=== PATIENT | male | born 1950 | race Caucasian/White ===

== ENCOUNTER 2017-05-10 11:32 | Inpatient (IN) | payer MEDICARE ==
[2017-05-10] VITALS (10 sets, daily range): BP systolic 111–134; BP diastolic 59–93; PULSE 74–107; RESP 13–24; TEMP 96.8–100; O2SAT 96–100
[~2017-05-10] VITALS: Ht 180.3 cm; Wt 106.1 kg
[~2017-05-10 11:32] MED LIST: AMLO5TAB22 PO; ASPI325T PO; ATOR20TA42 PO; LISI-363 PO; LORTA5 PO; METHO500 PO; METO100T PO; PRED20 PO
[2017-05-10] MEDS ORDERED: AMLO5TAB2 PO (12:19)
[2017-05-10] MEDS ORDERED: LISI-515 PO (12:19)
[2017-05-10] MEDS ORDERED: ATOR20TA15 PO (12:19)
[2017-05-10] MEDS ORDERED: APIX5TAB PO (12:19)
[2017-05-10] MEDS ORDERED: METO50TA PO (12:19)
[2017-05-10] MEDS ORDERED: SODIUM CHLOR 0.9% 1000 ML INJ 1,000 ML IV SCH (12:26)
[2017-05-10] MEDS ORDERED: PANTOPRAZOLE SODIUM 40 MG VIAL IVP ONE (12:30)
[2017-05-10] MEDS ORDERED: SODIUM CHLORIDE 0.9% FLUSH 10 ML FLUSH IVF PRN (12:30)
[2017-05-10 12:53] LABS: HEMATOCRIT 23.1 % (39.0-51.0); MEAN CELL VOLUME 105.7 FL (80.0-100.0); MEAN CORPUSCULAR HEMOGLOBIN 36.8 PG (27.0-34.0); MEAN CORPUSCULAR HGB CONC 34.8 % (32.0-36.0); PLATELET COUNT 113 TH/MM3 (150-450); RED BLOOD COUNT 2.19 MIL/MM3 (4.50-5.90); RED CELL DISTRIBUTION WIDTH 15.8 % (11.6-17.2); WHITE BLOOD COUNT 3.9 TH/MM3 (4.0-11.0)
[2017-05-10 12:55] LABS: HEMO FLAGS AUTO DIFF
[2017-05-10 12:59] LABS: APTT (PATIENT) 31.3 SEC (24.3-30.1); INTERNATIONAL NORMALIZED RATIO 1.2 RATIO; PROTHROMBIN TIME - PATIENT 13.1 SEC (9.8-11.6)
[2017-05-10 13:23] LABS: ALT (GPT) 11 U/L (12-78); ANION GAP 9 MEQ/L (5-15); AST (GOT) 10 U/L (15-37); BLOOD UREA NITROGEN 28 MG/DL (7-18); CHLORIDE 105 MEQ/L (98-107); GLOMERULAR FILTRATION RATE 61 ML/MIN (>89); POTASSIUM 4.4 MEQ/L (3.5-5.1); SODIUM (NA) 140 MEQ/L (136-145)
[2017-05-10 13:25] LABS: ALKALINE PHOSPHATASE 66 U/L (45-117); TOTAL BILIRUBIN ADULT 0.7 MG/DL (0.2-1.0)
[2017-05-10 13:52] LABS: BANDS 1 % (0-6); POLYS (SEG NEUTROPHILS) 4 % (16-70); WBC DIFF SAMPLE 100
[2017-05-10 13:56] LABS: NEUTROPHIL # MANUAL DIFF 0.2 TH/MM3 (1.8-7.7); PLATELET ESTIMATE SMEAR LOW (NORMAL); PLATELET MORPHOLOGY NORMAL (NORMAL); SCAN/DIFF FINAL DIFF MANUAL
--- NOTE | 2017-05-10 14:06 | PD ---
HPI Chief Complaint: Bleeding Time Seen by Provider: 12:26 Travel History International Travel<30 days: No Contact w/Intl Traveler<30days: No Traveled to known affect area: No History of Present Illness HPI This is a 66-year-old gentleman who was sent by his primary care doctor for dizziness and weakness and a hemoglobin was 7.6. The patient has no past medical history of anemia. He does have a recent right ear infection and had a tube placed by an ENT physician yesterday. They report that they have not filled the antibiotic as of yet. The patient reports dizziness and weakness with worse on exertion. He does have a history of daily drinking. The patient denies any chest pain, chest pressure. There is no reported hematemesis or hematochezia. The patient does have a history of atrial fibrillation and is on eliquis daily. PFSH Past Medical History Hx Anticoagulant Therapy: No Atrial Fibrillation: Yes Cancer: No Cardiovascular Problems: Yes (AFIB) High Cholesterol: Yes Chemotherapy: No Cerebrovascular Accident: No Diabetes: No Diminished Hearing: No Endocrine: No Gastrointestinal Disorders: Yes (HERNIA REPAIR) Genitourinary: No Hepatitis: No Hiatal Hernia: No Hypertension: Yes Immune Disorder: No Medical other: Yes (HIGH CHOLESTEROL) Musculoskeletal: Yes (LT KNEE ARTHRITIS, LOWER BACK) Neurologic: Yes Psychiatric: No Reproductive: No Respiratory: No Thyroid Disease: No Past Surgical History Abdominal Surgery: Yes (HERNIA, APPY) AICD: No Appendectomy: Yes Body Medical Devices: NONE Ear Surgery: No Endocrine Surgery: No Eye Surgery: No Genitourinary Surgery: No Gynecologic Surgery: No Joint Replacement: Yes (LEFT KNEE) Oral Surgery: Yes (TONSILLECTOMY) Pacemaker: No Tonsillectomy: Yes Other Surgery: Yes Social History Alcohol Use: Yes (BEER DAILY) Tobacco Use: No Substance Use: No Allergies-Medications (Allergen,Severity, Reaction): Coded Allergies: No Known Allergies (Unverified , 05/10/17) Reported Meds & Prescriptions Reported Meds & Active Scripts Active Reported Lisinopril 20 Mg Tab 20 Mg PO DAILY Atorvastatin (Atorvastatin Calcium) 20 Mg Tab 20 Mg PO DAILY Metoprolol Tartrate 50 Mg Tab 50 Mg PO DAILY Amlodipine (Amlodipine Besylate) 5 Mg Tab 5 Mg PO DAILY Eliquis (Apixaban) 5 Mg Tab 5 Mg PO DAILY Review of Systems Except as stated in HPI: all other systems reviewed are Neg General / Constitutional: No: Fever, Chills Eyes: No: Blurred Vision, Photophobia HENT: Positive: Lightheadedness, Ear Discharge (had a tube placed in his right tympanic membrane yesterday.), Earache, No: Headaches, Neck Pain Cardiovascular: No: Chest Pain or Discomfort, Palpitations, Irregular Rhythm Respiratory: Positive: Shortness of Breath, No: Cough Gastrointestinal: No: Nausea, Vomiting, Diarrhea, Abdominal Pain, Hematemesis, Hematochezia Genitourinary: No: Dysuria, Hematuria Musculoskeletal: Positive: Weakness (generalized), No: Pain Neurologic: Positive: Weakness, Dizziness (generalized mild), No: Headache, Change in Mentation Physical Exam Narrative GENERAL: Well-developed well-nourished gentleman in no acute respiratory distress. SKIN: Focused skin assessment warm/dry. HEAD: Atraumatic. Normocephalic. EYES: No scleral icterus. No injection or drainage. ENT: No nasal bleeding or discharge. Mucous membranes pale and moist. NECK: Trachea midline. Supple. CARDIOVASCULAR: Irregularly irregular with a rate in the 80s and 90s. No murmur appreciated. RESPIRATORY: No accessory muscle use. Clear to auscultation. Breath sounds equal bilaterally. GASTROINTESTINAL: Abdomen soft, non-tender, nondistended. RECTAL EXAM: No masses or tenderness, no stool but mucus. Heme-negative MUSCULOSKELETAL: No obvious deformities. No clubbing. No cyanosis. No edema. NEUROLOGICAL: Awake and alert. No obvious cranial nerve deficits. Motor grossly within normal limits. Normal speech. Data Data Last Documented VS Vital Signs Date Time Temp Pulse Resp B/P Pulse Ox O2 Delivery O2 Flow Rate FiO2 05/10/17 13:52 81 18 133/63 99 Room Air 05/10/17 11:34 98.3 Orders Complete Blood Count With Diff (05/10/17 12:26) Comprehensive Metabolic Panel (05/10/17 12:26) Prothrombin Time / Inr (Pt) (05/10/17 12:26) Act Partial Throm Time (Ptt) (05/10/17 12:26) Urinalysis - C+S If Indicated (05/10/17 12:26) Type And Screen (05/10/17 12:26) Red Blood Cells (Rbc) (05/10/17 12:26) Ecg Monitoring (05/10/17 12:26) Iv Access Insert/Monitor (05/10/17 12:26) Oximetry (05/10/17 12:26) Pantoprazole Inj (Protonix Inj) (05/10/17 12:30) Sodium Chlor 0.9% 1000 Ml Inj (Ns 1000 M (05/10/17 12:26) Sodium Chloride 0.9% Flush (Ns Flush) (05/10/17 12:30) Place In Observation (05/10/17 ) Vital Signs (Adult) Q4H (05/10/17 14:56) Activity Oob With Assistance (05/10/17 14:56) Diet Regular Basic (05/10/17 Dinner) Sodium Chlor 0.9% 1000 Ml Inj (Ns 1000 M (05/10/17 15:00) Sodium Chloride 0.9% Flush (Ns Flush) (05/10/17 15:00) Sodium Chloride 0.9% Flush (Ns Flush) (05/10/17 21:00) Acetaminophen (Tylenol) (05/10/17 15:00) Ondansetron Inj (Zofran Inj) (05/10/17 15:00) Comprehensive Metabolic Panel (05/11/17 06:00) Complete Blood Count With Diff (05/11/17 06:00) Resp Oxygen Davin C Titrat 1-4 L (05/10/17 ) Case Management Consult (05/10/17 14:56) Scd Bilateral/Knee High CARLOS A.BID (05/10/17 14:56) Prashant Bilateral/Knee High CARLOS A.QSHIFT (05/10/17 14:56) Docusate Sodium-Senna (Cinthia-Colace) (05/10/17 21:00) Magnesium Hydroxide Liq (Milk Of Magnesi (05/10/17 15:00) Sennosides (Senokot) (05/10/17 15:00) Bisacodyl Supp (Dulcolax Supp) (05/10/17 15:00) Lactulose Liq (Lactulose Liq) (05/10/17 15:00) Consult Medical Oncology (05/10/17 ) Amoxicil-Clavulanate (Augmentin) (05/10/17 15:00) Labs Laboratory Tests Test 05/10/17 05/10/17 12:20 13:58 White Blood Count 3.9 TH/MM3 Red Blood Count 2.19 MIL/MM3 Hemoglobin 8.1 GM/DL Hematocrit 23.1 % Mean Corpuscular Volume 105.7 FL Mean Corpuscular Hemoglobin 36.8 PG Mean Corpuscular Hemoglobin 34.8 % Concent Red Cell Distribution Width 15.8 % Platelet Count 113 TH/MM3 Mean Platelet Volume 7.6 FL Neutrophils (%) (Auto) % Lymphocytes (%) (Auto) % Monocytes (%) (Auto) % Eosinophils (%) (Auto) % Basophils (%) (Auto) % Neutrophils # (Auto) TH/MM3 Lymphocytes # (Auto) TH/MM3 Monocytes # (Auto) TH/MM3 Eosinophils # (Auto) TH/MM3 Basophils # (Auto) TH/MM3 CBC Comment AUTO DIFF Differential Total Cells 100 Counted Neutrophils % (Manual) 4 % Band Neutrophils % 1 % Lymphocytes % 55 % Monocytes % 40 % Neutrophils # (Manual) 0.2 TH/MM3 Differential Comment FINAL DIFF MANUAL Platelet Estimate LOW Platelet Morphology Comment NORMAL Prothrombin Time 13.1 SEC Prothromb Time International 1.2 RATIO Ratio Activated Partial 31.3 SEC Thromboplast Time Sodium Level 140 MEQ/L Potassium Level 4.4 MEQ/L Chloride Level 105 MEQ/L Carbon Dioxide Level 26.0 MEQ/L Anion Gap 9 MEQ/L Blood Urea Nitrogen 28 MG/DL Creatinine 1.19 MG/DL Estimat Glomerular Filtration 61 ML/MIN Rate Random Glucose 145 MG/DL Calcium Level 9.3 MG/DL Total Bilirubin 0.7 MG/DL Aspartate Amino Transf 10 U/L (AST/SGOT) Alanine Aminotransferase 11 U/L (ALT/SGPT) Alkaline Phosphatase 66 U/L Total Protein 7.9 GM/DL Albumin 3.9 GM/DL Blood Type A POSITIVE A POSITIVE Antibody Screen NEGATIVE Crossmatch Leukocyte-Reduced Red Blood Cells Blood Bank Comment MDM Medical Decision Making Medical Screen Exam Complete: Yes Emergency Medical Condition: Yes Differential Diagnosis Anemia of chronic inflammation versus GI bleed versus pancytopenia Narrative Course This is a 66-year-old male who presents here with weakness and dizziness. Patient also has mild shortness of breath. The patient's hemoglobin is 8.0. The absolute neutrophil count is 0.2. The patient has no history of immunocompromise state that they're aware of. He has never been HIV tested. He does have an ear infection that he is being treated for however did not fill the antibiotics. Given his absolute neutrophil count of 0.2, he'll be admitted. He will need to have infection precautions. A mask was placed on the patient when we received the neutrophil count. The case was discussed with Dr. Garcia, who will admit the patient to her service. Diagnosis Primary Impression: Pancytopenia Additional Impressions: neutropenia with ANC of 0.2 Weakness Dizziness Valdemar Maher MD May 10, 2017 14:06
[2017-05-10] MEDS ORDERED: MAGNESIUM HYDROXIDE SUSP 30 ML CUP PO PRN (15:00)
[2017-05-10] MEDS ORDERED: LACTULOSE SYRUP 20 GM/30 ML CUP PO PRN (15:00)
[2017-05-10] MEDS ORDERED: BISACODYL 10 MG SUPP RECTAL PRN (15:00)
[2017-05-10] MEDS ORDERED: SENNOSIDES 8.6 MG TAB PO PRN (15:00)
[2017-05-10] MEDS: SODIUM CHLOR 0.9% 1000 ML INJ 1,000 ML IV SCH (15:19)
[2017-05-10] MEDS: AMOXICILLIN/CLAVULANATE K 875 MG TAB PO SCH ×2 (15:37→21:41)
--- NOTE | 2017-05-10 16:10 | HHI.HP ---
[facility] Cristiane Holguin Admission Diagnosis Pancytopenia, neutropenia, right ear infection Diagnoses: Chief Complaint: weakness and dizziness Travel History International Travel<30 Days: No Contact w/Intl Traveler <30 Da: No Traveled to Known Affected Are: No History of Present Illness Written by Susie Varela, acting as scribe for [Radha] on 05/10/17 at 16: 00. This note was transcribed by scribe Susie PETERSON. I, Dr. Adalgisa Garcia personally performed the history, physical exam, and medical decision making; and confirmed the accuracy of the information in the transcribed note. Authenticated by Dr. Adalgisa Garcia on 05/10/17 at 16:00. 66 y/o male with a history HTN, HLD, AFIB and arthritis presented to the ED with complaints of dizziness and weakness. Yesterday he had a tube placed in his right ear by his ENT Dr, and he completed outpatient blood work. Today he was called by his PCP for a hgb of 7.6. He states he has had dizzy episodes when he stands up, lack of appetite, a 20 pound weight loss over the last 2 months. He is a homosexual male and has never been tested for HIV, he does agree with testing, consents signed. He states he does get short of breath at times. He admits to daily beer drinking, but states his last drink was one week ago. Denies any chest pain, fever or chills. Review of Systems Constitutional: COMPLAINS OF: Fatigue, Weight loss, Dizziness, DENIES: Fever, Chills Respiratory: COMPLAINS OF: Shortness of breath, DENIES: Cough, Sputum production Cardiovascular: DENIES: Chest pain, Lower Extremity Edema Gastrointestinal: DENIES: Nausea, Vomiting Genitourinary: DENIES: Hematuria, Dysuria Musculoskeletal: DENIES: Back pain, Neck pain Integumentary: DENIES: Rash Immunologic/allergic: DENIES: Urticaria Neurologic: DENIES: Headache Past Family Social History Past Medical History AFIB HTN HLD Arthritis Past Surgical History Hernia repair Tonsillectomy Left knee replacement Reported Medications Reported Meds & Active Scripts Active Reported Lisinopril 20 Mg Tab 20 Mg PO DAILY Atorvastatin (Atorvastatin Calcium) 20 Mg Tab 20 Mg PO DAILY Metoprolol Tartrate 50 Mg Tab 50 Mg PO DAILY Amlodipine (Amlodipine Besylate) 5 Mg Tab 5 Mg PO DAILY Eliquis (Apixaban) 5 Mg Tab 5 Mg PO DAILY Allergies: Coded Allergies: No Known Allergies (Unverified , 05/10/17) Active Ordered Medications Current Medications Medications (Trade) Dose Ordered Sig/Maritza Route Start Time Stop Time Status Last Admin (NS 1000 ml Inj) 1,000 ml @ 100 mls/hr Q10H IV 05/10/17 15:00 05/10/17 15:19 (NS Flush) 2 ml UNSCH PRN IV FLUSH 05/10/17 15:00 (NS Flush) 2 ml BID IV FLUSH 05/10/17 21:00 (Tylenol) 650 mg Q4H PRN PO 05/10/17 15:00 (Zofran Inj) 4 mg Q6H PRN IVP 05/10/17 15:00 (Cinthia-Colace) 1 tab BID PO 05/10/17 21:00 (Milk Of Magnesia Liq) 30 ml Q12H PRN PO 05/10/17 15:00 (Senokot) 17.2 mg Q12H PRN PO 05/10/17 15:00 (Dulcolax Supp) 10 mg DAILY PRN RECTAL 05/10/17 15:00 (Lactulose Liq) 30 ml DAILY PRN PO 05/10/17 15:00 (Augmentin) 875 mg Q12HR PO 05/10/17 15:00 05/10/17 15:37 Family History Dad: CVA Social History Tobacco use: Denies Alcohol use: 5-7 Beers Daily Illicit drug use: Denies Physical Exam Vital Signs Vital Signs Date Time Temp Pulse Resp B/P Pulse Ox O2 Delivery O2 Flow Rate FiO2 05/10/17 15:42 77 20 111/74 99 Room Air 05/10/17 13:52 81 18 133/63 99 Room Air 05/10/17 13:38 99 Room Air 05/10/17 12:08 88 24 121/59 100 Room Air 05/10/17 11:34 98.3 83 18 131/80 98 Room Air Physical Exam GENERAL: This is a well-nourished, well-developed patient, in no apparent distress. SKIN: No rashes, ecchymoses or lesions. Cool and dry. HEAD: Atraumatic. Normocephalic. No temporal or scalp tenderness. EYES: Pupils equal round and reactive. Extraocular motions intact. No scleral icterus. No injection or drainage. ENT: Nose without bleeding, purulent drainage or septal hematoma. Throat without erythema, tonsillar hypertrophy or exudate. Uvula midline. Airway patent. NECK: Trachea midline. No JVD or lymphadenopathy. Supple, nontender, no meningeal signs. CARDIOVASCULAR: Regular rate and rhythm without murmurs, gallops, or rubs. RESPIRATORY: Clear to auscultation. Breath sounds equal bilaterally. No wheezes , rales, or rhonchi. GASTROINTESTINAL: Abdomen soft, non-tender, nondistended. No hepato-splenomegaly , or palpable masses. No guarding. MUSCULOSKELETAL: Extremities without clubbing, cyanosis, or edema. No joint tenderness, effusion, or edema noted. No calf tenderness. Negative Homans sign bilaterally. NEUROLOGICAL: Awake and alert. Cranial nerves II through XII intact. Motor and sensory grossly within normal limits. Five out of 5 muscle strength in all muscle groups. Normal speech. Laboratory Laboratory Tests Test 05/10/17 05/10/17 12:20 13:58 White Blood Count 3.9 Red Blood Count 2.19 Hemoglobin 8.1 Hematocrit 23.1 Mean Corpuscular Volume 105.7 Mean Corpuscular Hemoglobin 36.8 Mean Corpuscular Hemoglobin 34.8 Concent Red Cell Distribution Width 15.8 Platelet Count 113 Mean Platelet Volume 7.6 Neutrophils (%) (Auto) Lymphocytes (%) (Auto) Monocytes (%) (Auto) Eosinophils (%) (Auto) Basophils (%) (Auto) Neutrophils # (Auto) Lymphocytes # (Auto) Monocytes # (Auto) Eosinophils # (Auto) Basophils # (Auto) CBC Comment AUTO DIFF Differential Total Cells 100 Counted Neutrophils % (Manual) 4 Band Neutrophils % 1 Lymphocytes % 55 Monocytes % 40 Neutrophils # (Manual) 0.2 Differential Comment FINAL DIFF MANUAL Platelet Estimate LOW Platelet Morphology Comment NORMAL Prothrombin Time 13.1 Prothromb Time International 1.2 Ratio Activated Partial 31.3 Thromboplast Time Sodium Level 140 Potassium Level 4.4 Chloride Level 105 Carbon Dioxide Level 26.0 Anion Gap 9 Blood Urea Nitrogen 28 Creatinine 1.19 Estimat Glomerular Filtration 61 Rate Random Glucose 145 Calcium Level 9.3 Total Bilirubin 0.7 Aspartate Amino Transf 10 (AST/SGOT) Alanine Aminotransferase 11 (ALT/SGPT) Alkaline Phosphatase 66 Total Protein 7.9 Albumin 3.9 Blood Type A POSITIVE A POSITIVE Antibody Screen NEGATIVE Crossmatch Leukocyte-Reduced Red Blood Cells Blood Bank Comment Result Diagram: 05/10/17 1220 05/10/17 1220 Assessment and Plan Problem List: (1) Pancytopenia ICD Code: D61.818 Status: Acute (2) Macrocytic anemia ICD Code: D53.9 Status: Acute (3) Alcohol abuse ICD Code: F10.10 Status: Acute (4) S/P tympanic tube insertion ICD Code: Z96.22 Status: Acute Assessment and Plan 66 y/o homosexual male with a history of HTN, HLD, AFIB and arthritis presented to the ED with complaints of dizziness and weakness. Yesterday he had a tube placed in his right ear by his ENT Dr, and he completed outpatient blood work. Today he was called by his PCP for a hgb of 7.6. He states he has had dizzy episodes when he stands up, lack of appetite, a 20 pound weight loss over the last 2 months. Pancytopenia, hgb 8.9, wbc 3.9, neutrophils .2, platelets 103 -Consult Medical oncology for recommendations -CBC in am -HIV screen ordered Macrocytic anemia suspect Vit B12 or thiamine deficiency -Labs Vit B12, and Thiamine ordered -Will transfuse if needed HTN, chronic, currently stable -Reorder home medications lisinopril, amlodipine -Monitor vitals Afib, chronic -Reorder home medications metoprolol -Monitor tele -Hold Eliquis for now due to pancytopenia S/P tympanic tube placement, tube was placed yesterday by ENT for chronic ear infection -Augmentin 875mg PO BID -Monitor for fevers Alcohol abuse, chronic -Withdrawal precautions -Encouraged to quit -Will order CIWA protocol if needed DVT prophylaxis: SCDs Discussed Condition With Patient, RN and Family at bedside Susie Varela May 10, 2017 16:10 Adalgisa Garcia MD May 10, 2017 16:26
--- NOTE | 2017-05-10 19:48 | MB ---
cc: DON JOHNS MD DATE OF CONSULTATION: 05/10/2017 REASON FOR CONSULTATION: Patient with pancytopenia associated with a macrocytic anemia. Hematology asked to see the patient for further workup and evaluation. CHIEF COMPLAINT: 1. The patient reports a 25 pound unintended weight loss for the past two months. 2. Increasing difficulty breathing with minimal exertion. 3. Dizziness when standing and walking. HISTORY OF PRESENT ILLNESS: Mr. Gutiérrez is a very pleasant 66-year-old man who is originally from [facility] [place] [facility]. He worked most of his life for the [place] [employer]. He is single. He has no children of his own. He lives at home with his male roommates. The patient reports being in his usual fair state of health up until about two months ago, the patient began to notice increasing fatigue and breathlessness with exertion and dizziness when standing. He explains the dizziness typically would be present initially when he stood and walked but would resolve after he walked a few paces. He has also noted an unintended weight loss which mainly is due to loss of appetite; over the past 2 months his weight has dropped from 285 pounds down to 260 pounds without putting in much effort. The patient reported the symptoms to his PCP who recommended blood work. Blood work was done yesterday and the patient received a phone call from his PCP instructing him to go to the emergency department for evaluation of a rapid decline in his hemoglobin and hematocrit. Mr. Gutiérrez denies noting any overt bleeding, he specifically denies hematochezia or melena. The patient is on anticoagulation with Eliquis 5 mg twice daily, the indication for which is atrial fibrillation. PAST MEDICAL HISTORY: 1. Hypertension. 2. Atrial fibrillation. 3. Valvular heart disease. PAST SURGICAL HISTORY: 1. Hernia repair. 2. Knee surgery. 3. Cholecystectomy. FAMILY HISTORY: Father of strokes, mother at a young age in a house fire. SOCIAL HISTORY: Patient is single, he lives at home with his male roommates, he is originally from [facility] [place]. He used to drink four to five beers daily but now only drinks on weekends. ALLERGIES: NO KNOWN DRUG ALLERGIES. CURRENT INPATIENT MEDICATIONS: 1. Normal saline 100 cc/hour. 2. Amlodipine 5 milligrams p.o. daily. 3. Augmentin 875 milligrams p.o. twice a day. 4. Atorvastatin 20 milligrams p.o. daily. 5. Colace / senna one tablet p.o. twice a day. 6. Lactulose 30 mL p.o. daily. 7. Lisinopril 20 milligrams daily. 8. Metoprolol 50 milligrams p.o. daily. 9. Zofran 4 milligrams IV q. 6 hours. 10. Pantoprazole 40 milligrams IV daily. REVIEW OF SYSTEMS: A thirteen point review of systems was obtained and the following are the pertinent positives: CONSTITUTIONAL: Weight loss, fatigue, weakness, decreased appetite. HEAD, EYES, EARS, NOSE, THROAT: Reports headache along the right side of his head, he reports earache and a severe ear infection. He also reports soreness in the throat. RESPIRATORY: Difficulty breathing with exertion, denies cough or hemoptysis. denies pleuritic chest pain. CARDIOVASCULAR: Denies angina-like chest pain, PND, orthopnea, but does report dizziness and reports palpitations. GASTROINTESTINAL: Denies nausea, vomiting, diarrhea hematochezia, melena. He interestingly reports noting foul-smelling dark liquid coming out of his belly button about two months ago but this resolved spontaneously. GENITOURINARY: No complaints. HUMAN CAPITAL ANALYST: No focal sensory or motor deficits. He does have difficulty hearing, which is chronic. MUSCULOSKELETAL: He denies any musculoskeletal aches and pains. PHYSICAL EXAMINATION: VITAL SIGNS: Temperature 96.8 degrees Fahrenheit, heart rate 74 beats per minute, respiratory rate 16, oxygen saturation 98% on room air. GENERAL PHYSICAL APPEARANCE: Mr. Gutiérrez is a middle-aged / elderly male, he is lying in bed, he is heavyset, appears to be in no acute distress and has a pleasant disposition. HEAD, EYES, EARS, NOSE, THROAT: Head is atraumatic and normocephalic. Conjunctivae are pale. The sclerae are anicteric. Extraocular muscles intact. Pupils equal, round and reactive to light and accommodation. ORAL EXAM: No pharyngeal erythema. NECK EXAM: No palpable cervical or supraclavicular lymphadenopathy. RESPIRATORY EXAM: Good air movement bilaterally. No added breath sounds. CARDIOVASCULAR EXAM: Regular rate and rhythm. S1, S2. No obvious murmurs, rubs or gallops. ABDOMINAL EXAM: Protuberant belly, soft, no palpable organ enlargement, specifically hepatosplenomegaly. LOWER EXTREMITIES: No pretibial edema or calf tenderness. HUMAN CAPITAL ANALYST: No focal sensory or motor deficits. LABORATORY FINDINGS: Blood work dated 05/10/2017: WBC count 3.9, hemoglobin 0.1 gm/dl, hematocrit 23%, MCV 105.7, platelet count 113,000, absolute neutrophil count is 0.2, monocyte percent is 40%, lymphocyte percent is 55%. Chemistries: Sodium 140, potassium 4.4, chloride 105, bicarbonate 26, BUN 28, creatinine 1.2, EGFR 61, random glucose 145, total bilirubin 0.7, AST 10, ALT 11, alkaline phosphatase 66, albumin 3.2. Coags: PT 13.1, INR 1.2, PTT 31.3. Review of peripheral smear: Red blood cell lineage: Decreased red blood cell counts, normocytic and essentially normochromic. No fragmentation noted. WBCs: An extensive number of monocytes / immature monocytes were noted. Very few neutrophils are identified, lymphocytes appear to be mature and perhaps increased in number as well. Platelets decreased mildly. ASSESSMENT: Mr. Gutiérrez is a 66-year-old man who comes in to the hospital upon the recommendation of his PCP for further workup and evaluation of rapid onset anemia. Subjectively the patient had been reporting increasing fatigue, breathlessness with exertion and unintended weight loss over the past several weeks. His hemoglobin at presentation was noted to be 8.1 gm/dl associated with leukopenia and thrombocytopenia as well. Interestingly he has a high percentage of monocytes in the peripheral circulation and this was verified on peripheral smear review by myself. The concern is for a primary bone marrow disorder such as a myeloproliferative neoplasm versus chronic myelomonocytic leukemia (CMML). RECOMMENDATIONS: 1. Pancytopenia associated with a significant monocytosis, peripheral smear has numerous immature and dysplastic appearing monocytes in circulation. I will request a formal peripheral smear review by our pathologist and will also request bone marrow biopsy with flow cytometry of the bone marrow as well as a reflex testing with cytogenetics/FISH as deemed necessary by pathology to establish a diagnosis.. 2. Obtain LDH, uric acid levels as well as folic acid levels. 3. The hematology service will follow along with you. 4. Serum iron studies will be ordered as well, and stool for occult blood testing to rule out possible GI losses with resultant anemia. MD GEORGI Shin /6:30 PM /7:33 PM MTDCristiane
[2017-05-10 19:58] LABS: BLOOD, URINE NEG (NEG); COMMENT (UR) CULT NOT INDICATED; CULTURE IF INDICATED CULT NOT INDICATED; GLUCOSE,URINE NEG (NEG); KETONE, URINE NEG (NEG); MUCUS URINE FEW /lpf (OCC); NITRITE,URINE NEG (NEG); URINE COLOR YELLOW (YELLW/STRAW)
[2017-05-10] MEDS: SODIUM CHLORIDE 0.9% FLUSH 10 ML FLUSH IV FLUSH SCH (21:00)
[2017-05-10] MEDS: DOCUSATE SODIUM 50 MG/SENNA 8.6 MG TAB PO SCH (21:41)
[2017-05-10] MEDS ORDERED: IBUPROFEN 400 MG TAB PO ONE (22:00)
[2017-05-11] VITALS (12 sets, daily range): BP systolic 103–132; BP diastolic 62–74; PULSE 77–111; RESP 16–22; TEMP 96.9–100.4; O2SAT 93–96
[2017-05-11] MEDS: SODIUM CHLOR 0.9% 1000 ML INJ 1,000 ML IV SCH (04:06)
[2017-05-11 07:05] LABS: MEAN CELL VOLUME 105.7 FL (80.0-100.0); MEAN CORPUSCULAR HEMOGLOBIN 37.4 PG (27.0-34.0); MEAN CORPUSCULAR HGB CONC 35.4 % (32.0-36.0); PLATELET COUNT 83 TH/MM3 (150-450); RED BLOOD COUNT 1.82 MIL/MM3 (4.50-5.90); RED CELL DISTRIBUTION WIDTH 15.8 % (11.6-17.2); WHITE BLOOD COUNT 3.2 TH/MM3 (4.0-11.0)
[2017-05-11 07:20] LABS: HEMO FLAGS AUTO DIFF
[2017-05-11 07:27] LABS: HEMATOCRIT 19.2 % (39.0-51.0)
[2017-05-11 07:35] LABS: ALKALINE PHOSPHATASE 63 U/L (45-117); ALT (GPT) 12 U/L (12-78); ANION GAP 9 MEQ/L (5-15); AST (GOT) 7 U/L (15-37); BICARBONATE 25.5 MEQ/L (21.0-32.0); BLOOD UREA NITROGEN 20 MG/DL (7-18); CHLORIDE 106 MEQ/L (98-107); FERRITIN 563 NG/ML (26-388); GLOMERULAR FILTRATION RATE 73 ML/MIN (>89); LDH SERUM 260 U/L (87-241); POTASSIUM 4.1 MEQ/L (3.5-5.1); SODIUM (NA) 140 MEQ/L (136-145); TRANSFERRIN IRON PROFILE 201 MG/DL (200-360); URIC ACID 5.3 MG/DL (2.6-7.2)
[2017-05-11] MEDS ORDERED: SODIUM CHLOR 0.9% 250 ML INJ 250 ML IV ONE (07:45)
[2017-05-11] MEDS ORDERED: ACETAMINOPHEN 325 MG TAB PO PRN ×2 (08:00→13:00)
[2017-05-11] MEDS ORDERED: diphenhydrAMINE HCL 25 MG CAP PO PRN ×2 (08:00→13:00)
[2017-05-11] MEDS: CEFEPIME INJ 2,000 MG in SODIUM CHLORIDE 0.9% INJ 100 ML IV SCH ×2 (08:08→19:33)
[2017-05-11] MEDS: METOPROLOL TARTRATE 50 MG TAB PO SCH (08:10)
[2017-05-11] MEDS: SODIUM CHLORIDE 0.9% FLUSH 10 ML FLUSH IV FLUSH SCH ×2 (08:14→21:00)
[2017-05-11 08:45] LABS: BANDS 1 % (0-6); BLASTS 2 % (0-0); EOSINOPHILS 1 % (0-4); NEUTROPHIL # MANUAL DIFF 0.1 TH/MM3 (1.8-7.7); POLYS (SEG NEUTROPHILS) 3 % (16-70); WBC DIFF SAMPLE 100
[2017-05-11 08:48] LABS: PLATELET ESTIMATE SMEAR LOW (NORMAL); PLATELET MORPHOLOGY NORMAL (NORMAL)
--- NOTE | 2017-05-11 08:49 | PD.ONC.PN ---
Subjective Subjective Remarks Patient reports pain and swelling in the left axilla. Continues to have pain in the right ear. Denies fevers or chills. Hemoglobin down to 6.8 g/dL this morning. Objective Data Date Time Temp Pulse Resp B/P Pulse Ox O2 Delivery O2 Flow Rate FiO2 05/11/17 04:00 100.1 106 18 116/74 93 05/11/17 00:00 96.9 77 18 120/64 96 05/10/17 23:07 19 05/10/17 20:00 97.3 79 18 117/72 96 05/10/17 16:33 96.8 74 16 116/68 98 05/10/17 16:00 76 20 125/93 99 Room Air 05/10/17 15:42 77 20 111/74 99 Room Air 05/10/17 14:00 76 13 117/68 98 Room Air 05/10/17 13:52 81 18 133/63 99 Room Air 05/10/17 13:38 99 Room Air 05/10/17 12:08 88 24 121/59 100 Room Air 05/10/17 11:34 98.3 83 18 131/80 98 Room Air Result Diagram: 05/11/17 0550 05/11/17 0550 Laboratory Results Laboratory Tests Test 05/10/17 05/10/17 05/10/17 05/11/17 12:20 13:58 17:00 05:50 White Blood Count 3.9 TH/MM3 3.2 TH/MM3 Red Blood Count 2.19 MIL/MM3 1.82 MIL/MM3 Hemoglobin 8.1 GM/DL 6.8 GM/DL Hematocrit 23.1 % 19.2 % Mean Corpuscular Volume 105.7 FL 105.7 FL Mean Corpuscular Hemoglobin 36.8 PG 37.4 PG Mean Corpuscular Hemoglobin 34.8 % 35.4 % Concent Red Cell Distribution Width 15.8 % 15.8 % Platelet Count 113 TH/MM3 83 TH/MM3 Mean Platelet Volume 7.6 FL 7.6 FL Neutrophils (%) (Auto) % % Lymphocytes (%) (Auto) % % Monocytes (%) (Auto) % % Eosinophils (%) (Auto) % % Basophils (%) (Auto) % % Neutrophils # (Auto) TH/MM3 TH/MM3 Lymphocytes # (Auto) TH/MM3 TH/MM3 Monocytes # (Auto) TH/MM3 TH/MM3 Eosinophils # (Auto) TH/MM3 TH/MM3 Basophils # (Auto) TH/MM3 TH/MM3 CBC Comment AUTO DIFF AUTO DIFF Differential Total Cells 100 Counted Neutrophils % (Manual) 4 % Band Neutrophils % 1 % Lymphocytes % 55 % Monocytes % 40 % Neutrophils # (Manual) 0.2 TH/MM3 Differential Comment FINAL DIFF MANUAL Platelet Estimate LOW Platelet Morphology Comment NORMAL Blood Smear Pathologist Review Prothrombin Time 13.1 SEC Prothromb Time International 1.2 RATIO Ratio Activated Partial 31.3 SEC Thromboplast Time Sodium Level 140 MEQ/L 140 MEQ/L Potassium Level 4.4 MEQ/L 4.1 MEQ/L Chloride Level 105 MEQ/L 106 MEQ/L Carbon Dioxide Level 26.0 MEQ/L 25.5 MEQ/L Anion Gap 9 MEQ/L 9 MEQ/L Blood Urea Nitrogen 28 MG/DL 20 MG/DL Creatinine 1.19 MG/DL 1.02 MG/DL Estimat Glomerular Filtration 61 ML/MIN 73 ML/MIN Rate Random Glucose 145 MG/DL 93 MG/DL Calcium Level 9.3 MG/DL 8.2 MG/DL Total Bilirubin 0.7 MG/DL 1.0 MG/DL Aspartate Amino Transf 10 U/L 7 U/L (AST/SGOT) Alanine Aminotransferase 11 U/L 12 U/L (ALT/SGPT) Alkaline Phosphatase 66 U/L 63 U/L Total Protein 7.9 GM/DL 6.9 GM/DL Albumin 3.9 GM/DL 3.3 GM/DL Vitamin B12 Level 335 PG/ML Blood Type A POSITIVE A POSITIVE Antibody Screen NEGATIVE Crossmatch Leukocyte-Reduced Red Blood Cells Blood Bank Comment Urine Color YELLOW Urine Turbidity CLEAR Urine pH 5.0 Urine Specific Palmer 1.019 Urine Protein NEG mg/dL Urine Glucose (UA) NEG mg/dL Urine Ketones NEG mg/dL Urine Occult Blood NEG Urine Nitrite NEG Urine Bilirubin NEG Urine Urobilinogen LESS THAN 2.0 MG/DL Urine Leukocyte Esterase NEG Urine RBC LESS THAN 1 /hpf Urine WBC LESS THAN 1 /hpf Urine Mucus FEW /lpf Microscopic Urinalysis Comment CULT NOT INDICATED Uric Acid 5.3 MG/DL Iron Level 56 MCG/DL Total Iron Binding Capacity 281 MCG/DL Percent Iron Saturation 19.9 % Ferritin 563 NG/ML Lactate Dehydrogenase 260 U/L Test 05/11/17 07:37 Blood Type A POSITIVE Crossmatch Irradiated/Leukocyte-Reduced RBC Blood Bank Comment Administered Medications Medications (Trade) Dose Ordered Sig/Maritza Route PRN Reason Start Time Stop Time Status Last Admin Dose Admin Sodium Chloride (NS 1000 ml Inj) 1,000 ml @ 100 mls/hr Q10H IV 05/10/17 15:00 05/11/17 04:06 Senna/Docusate Sodium (Cinthia-Colace) 1 tab BID PO 05/10/17 21:00 05/10/17 21:41 Metoprolol Tartrate (Lopressor) 50 mg DAILY PO 05/11/17 09:00 05/11/17 08:10 Acetaminophen (Tylenol) 650 mg Q4H PRN PO SEE LABEL COMMENTS 05/11/17 08:00 05/11/17 12:01 05/11/17 08:09 Diphenhydramine HCl 25 mg 25 mg Q4H PRN PO SEE LABEL COMMENTS 05/11/17 08:00 05/11/17 12:01 05/11/17 08:09 Cefepime HCl/ Sodium Chloride (Maxipime Inj/NS Inj) 100 ml @ 200 mls/hr Q12H IV 05/11/17 08:00 05/11/17 08:08 Objective Remarks GENERAL: Middle-aged male, laying in bed, appears to be pale. Has difficulty hearing. SKIN: Warm and dry. HEAD: Normocephalic. EYES: No scleral icterus. No injection or drainage. Conjunctivae are pale. NECK: Supple, trachea midline. No JVD or lymphadenopathy. LYMPHATIC: Tenderness and warmth as well as swelling within the left axilla. CARDIOVASCULAR: Regular rate and rhythm without murmurs. RESPIRATORY: Breath sounds equal bilaterally. No accessory muscle use. GASTROINTESTINAL: Abdomen soft, non-tender, nondistended. EXTREMITIES: No cyanosis, or edema. MUSCULOSKELETAL: Adequate muscle tone. NEUROLOGICAL: No obvious focal deficit. Awake, alert, and oriented x3. PSYCHIATRIC: Appropriate mood and affect; insight and judgment normal. Assessment/Plan Assessment Mr. Gutiérrez is a 66-year-old man who comes in to the hospital upon the recommendation of his PCP for further workup and evaluation of rapid onset anemia. Subjectively the patient had been reporting increasing fatigue, breathlessness with exertion and unintended weight loss over the past several weeks. His hemoglobin at presentation was noted to be 8.1 gm/dl associated with leukopenia and thrombocytopenia as well. Interestingly he has a high percentage of monocytes in the peripheral circulation and this was verified on peripheral smear review by myself. The concern is for a primary bone marrow disorder such as a myeloproliferative neoplasm versus chronic myelomonocytic leukemia (CMML). Plan 1. Suspected myeloproliferative neoplasm/CMML: Bone marrow biopsy later today , await pathologist review peripheral smear. 2. Anemia: Suspect secondary to marrow dysfunction, transfuse 2 units packed red blood cells today. 3. Tenderness warmth and redness along with swelling in the left axilla: Suspect he may have an abscess, ultrasound of the left axilla is been ordered. Initiate empiric antibiotics with vancomycin and cefepime. He is neutropenic, Augmentin discontinued. If he does have evidence of an abscess within the left axilla he will require incision and drainage; this case please consult general surgery. Monitor closely, I suspect he likely has a high-grade primary bone marrow disorder. Dwain Diez MD May 11, 2017 08:49
[2017-05-11 08:56] LABS: SCAN/DIFF FINAL DIFF MANUAL
[2017-05-11] MEDS: ATORVASTATIN 20 MG TAB PO SCH (09:00)
[2017-05-11] MEDS: VANCOMYCIN INJ 1,000 MG in SODIUM CHLOR 0.9% 250 ML INJ 250 ML IV SCH ×2 (09:00→21:02)
--- NOTE | 2017-05-11 09:34 | RADRPT ---
EXAM DATE/TIME: 05/11/2017 08:27 [facility] COMPARISON: No previous studies available for comparison. INDICATIONS : Left axilla abscess. MEDICAL HISTORY : Hypercholesterolemia. Hypertension. Arthritis. Afib. Hyperlipidemia. Dyspnea. SURGICAL HISTORY : Tonsillectomy. Appendectomy. Hernia repair. Left knee arthroscopy. ENCOUNTER: Initial ACUITY: 3 days PAIN SCORE: 2/10 LOCATION: Left arm. AREA EVALUATED: Left axilla. FINDINGS: There is edematous tissue in the left axillary region. No loculated fluid to suggest abscess formatio n. CONCLUSION: Negative for abscess. Edematous changes in the soft tissues of the left axilla. Hank Nixon MD on May 11, 2017 at 9:11 Board Certified Radiologist. This report was verified electronically.
--- NOTE | 2017-05-11 09:40 | HHI.PR ---
Subjective Remarks Pt having ear pain 7/10, throbbing, denies any CP/n/v. states that he gets SOB w exertion. no cough. feels tired Objective Vitals Vital Signs Date Time Temp Pulse Resp B/P Pulse Ox O2 Delivery O2 Flow Rate FiO2 05/11/17 09:30 98.4 99 20 132/65 96 05/11/17 08:00 99.9 111 16 124/72 93 05/11/17 04:00 100.1 106 18 116/74 93 05/11/17 00:00 96.9 77 18 120/64 96 05/10/17 23:07 19 05/10/17 20:00 97.3 79 18 117/72 96 05/10/17 16:33 96.8 74 16 116/68 98 05/10/17 16:00 76 20 125/93 99 Room Air 05/10/17 15:42 77 20 111/74 99 Room Air 05/10/17 14:00 76 13 117/68 98 Room Air 05/10/17 13:52 81 18 133/63 99 Room Air 05/10/17 13:38 99 Room Air 05/10/17 12:08 88 24 121/59 100 Room Air 05/10/17 11:34 98.3 83 18 131/80 98 Room Air I/O 05/10/17 05/10/17 05/10/17 05/11/17 05/11/17 05/11/17 07:00 15:00 23:00 07:00 15:00 23:00 Intake Total 1000 ml 612 ml Output Total 150 ml 870 ml Balance 850 ml -258 ml Intake IV Total 1000 ml 612 ml Output Urine Total 150 ml 870 ml Result Diagram: 05/11/17 0550 05/11/17 0550 Imaging Objective Remarks GENERAL: This is a well-nourished, well-developed patient, in no apparent distress. EYES: Extraocular motions intact. No scleral icterus. No injection or drainage. ENT: Nose without drainage. NECK: Trachea midline. Left Axilla: area of induration under axilla, no pus or drainage, some erythema noted. tender to palpation CARDIOVASCULAR: RRR w no murmurs RESPIRATORY: Clear to auscultation. Breath sounds equal bilaterally. No wheezes GASTROINTESTINAL: Abdomen soft, non-tender, nondistended. No palpable masses. No guarding. MUSCULOSKELETAL: Extremities without edema. No joint tenderness, effusion, or edema noted. No calf tenderness. Negative Homans sign bilaterally. NEUROLOGICAL: Awake and alert. Cranial nerves II through XII intact. Motor and sensory grossly within normal limits. Normal speech. A/P Problem List: (1) Pancytopenia ICD Code: D61.818 Status: Acute (2) Macrocytic anemia ICD Code: D53.9 Status: Acute (3) Alcohol abuse ICD Code: F10.10 Status: Acute (4) S/P tympanic tube insertion ICD Code: Z96.22 Status: Acute Assessment and Plan 66 y/o homosexual male with a history of HTN, HLD, AFIB and arthritis presented to the ED with complaints of dizziness and weakness. s/p tube placement in his right ear by his ENT as outpatient, and he completed outpatient blood work. Called by his PCP for a hgb of 7.6. complaints of dizziness episodes when he stands up, lack of appetite, a 20 pound weight loss over the last 2 months. Pancytopenia, hgb 8.9, wbc 3.9, neutrophils .2, platelets 103 on admission -Medical oncology following, has scheduled him for bone marrow biopsy, suspecting myeloproliferative neoplasm/CMML. Hb dropped to 6.8 this morning, oncology ordered 2 units PRBC. monitor H&H -HIV screen pending Macrocytic anemia suspect Vit B12 or thiamine deficiency -Labs Vit B12 normal, and Thiamine pending - see above left axilla cellulitis: u/s axilla ordered by oncology, f/u, may need drainage if abscess present. pt started on vanc and cefepime. HTN, chronic, currently stable -on home medications lisinopril, amlodipine -Monitor vitals Afib, chronic - home medications -Monitor tele -Hold Eliquis for now due to pancytopenia S/P tympanic tube placement, tube was placed yesterday by ENT for chronic ear infection -s/p Augmentin 875mg PO BID which has been stopped as pt on vanc and cefepime. -Monitor for fevers Alcohol abuse, chronic -Withdrawal precautions: sz and fall precaution in place -Encouraged to quit -on CIWA protocol if needed Discharge Planning bone biopsy scheduled later today. if positive for abscess consult Gen sx. pt on IV vanc and cefepime PRBC ordered by [facility] onc. d/c pending further work-up and clinical improvement. Rosy Thomas MD May 11, 2017 09:40
[2017-05-11] MEDS ORDERED: LIDOCAINE 1%/EPINEPHrine 1:100,000 SOLN 20 ML VIAL ONE (14:37)
[2017-05-11] MEDS ORDERED: MIDAZOLAM HCL 5 MG/5 ML VIAL ONE (14:43)
[2017-05-11] MEDS ORDERED: fentaNYL CITRATE 250 MCG/5 ML AMP ONE (14:43)
[2017-05-11] MEDS: amLODIPine BESYLATE 5 MG TAB PO SCH (16:00)
[2017-05-11] MEDS: LISINOPRIL 20 MG TAB PO SCH (16:00)
--- NOTE | 2017-05-11 16:36 | RADRPT ---
EXAM DATE/TIME: 05/11/2017 15:10 [facility] COMPARISON: No previous studies available for comparison. INDICATIONS : Rapid onset anemia. SEDATION TIME: 25 minutes BIOPSY SITE: Right iliac MEDICATION(S): 1.) 2 mg midazolam (Versed) IV 2.) 100 mcg fentanyl (Sublimaze) IV DEVICE(S): 1.) 11 gauge Bone marrow biopsy needle MEDICAL HISTORY : Hernia. Anemia SURGICAL HISTORY : Appendectomy. hernia repair ENCOUNTER: Initial ACUITY: 1 day PAIN SCORE: 0/10 LOCATION: pelvis A total of one core specimen(s) were obtained and sent to the laboratory for pathologic evaluation. PROCEDURE: 1. CT guided bone marrow biopsy. 2. Conscious sedation with continuous EKG and oximetry monitoring. Prior to the procedure informed consent was obtained. Any appropriate prior imaging studies were rev iewed. Using automated exposure control and adjustment of the mA and/or kV according to patient size , radiation dose was kept as low as reasonably achievable to obtain optimal diagnostic quality images . DICOM format image data is available electronically for review and comparison. The site was prepped in a sterile fashion. Full sterile technique was used, including cap, mask, george rile gloves and gown and a large sterile sheet. Hand hygiene and 2% chlorhexidine and/or betadine/al cohol prep was utilized per protocol for cutaneous antisepsis. The skin and subcutaneous tissues wer e infiltrated with local anesthetic solution. With CT guidance the previously identified target was localized. Biopsy was performed using the presc ribed needle as above. Following biopsy marrow aspiration was performed with repeat puncture. Adequa te hemostasis was obtained with compression at the puncture site. Follow-up CT scan reveals no hemorrhage. Conscious sedation was performed with the prescribed dosages and duration as above in the presence of an independent trained radiology nurse to assist in the monitoring of the patient. EKG and oximetry remained stable throughout the procedure. The patient tolerated the procedure well and there were no complications. The patient was sent to Radiology Outpatient Unit in stable condition. CONCLUSION: 1. Uncomplicated CT guided bone marrow aspirate. 2. Uncomplicated CT guided bone marrow biopsy. Ryan Hoover MD FACR on May 11, 2017 at 16:33 Board Certified Radiologist. This report was verified electronically.
[2017-05-11 17:06] LABS: JENNER GIEMSA STAIN DONE
[2017-05-11 17:08] LABS: BONE MARROW PROCESSING COMPLETE; IRON STAIN DONE
[2017-05-11] MEDS: DOCUSATE SODIUM 50 MG/SENNA 8.6 MG TAB PO SCH ×2 (19:31→19:39)
[2017-05-11] MEDS: ACETAMINOPHEN 325 MG TAB PO PRN (20:25)
[2017-05-12] VITALS (9 sets, daily range): BP systolic 111–136; BP diastolic 60–76; PULSE 87–118; RESP 18–21; TEMP 98–100.8; O2SAT 85–94
[2017-05-12] MEDS: SODIUM CHLOR 0.9% 1000 ML INJ 1,000 ML IV SCH ×3 (02:10→17:00)
[2017-05-12 07:22] LABS: HEMATOCRIT 21.3 % (39.0-51.0); MEAN CORPUSCULAR HEMOGLOBIN 35.7 PG (27.0-34.0); MEAN CORPUSCULAR HGB CONC 35.4 % (32.0-36.0); PLATELET COUNT 74 TH/MM3 (150-450); RED BLOOD COUNT 2.11 MIL/MM3 (4.50-5.90); RED CELL DISTRIBUTION WIDTH 20.3 % (11.6-17.2); WHITE BLOOD COUNT 5.2 TH/MM3 (4.0-11.0)
[2017-05-12 07:29] LABS: HEMO FLAGS AUTO DIFF
[2017-05-12 07:50] LABS: BICARBONATE 21.9 MEQ/L (21.0-32.0); POTASSIUM 3.6 MEQ/L (3.5-5.1)
[2017-05-12] MEDS: CEFEPIME INJ 2,000 MG in SODIUM CHLORIDE 0.9% INJ 100 ML IV SCH ×2 (08:00→20:55)
[2017-05-12 09:29] LABS: BLASTS 2 % (0-0); CORRECTED NUCLEATED RBC 1 /100 WBC (0-0); EOSINOPHILS 1 % (0-4); WBC DIFF SAMPLE 100
[2017-05-12 09:30] LABS: PLASMA CELLS 0 % (0-0)
--- NOTE | 2017-05-12 09:31 | PD.ONC.PN ---
Subjective Subjective Remarks Tmax 100.1 overnight. Patient resting in bed without complaints. No overnight events. Objective Data Date Time Temp Pulse Resp B/P Pulse Ox O2 Delivery O2 Flow Rate FiO2 05/12/17 08:00 99.8 100 18 136/73 92 05/12/17 04:00 100.1 118 20 132/76 92 05/12/17 00:00 98.0 99 21 120/60 93 05/11/17 22:17 20 05/11/17 21:22 99.4 05/11/17 20:50 99.0 05/11/17 20:44 21 05/11/17 20:00 100.4 105 22 122/67 94 05/11/17 16:59 99.0 93 16 123/68 94 05/11/17 16:00 82 18 121/65 95 05/11/17 15:45 97.8 85 18 121/69 93 05/11/17 13:45 99.7 87 18 103/62 05/11/17 12:00 99.5 90 16 111/63 96 05/11/17 09:30 98.4 99 20 132/65 96 05/12/17 05/12/17 05/12/17 07:00 15:00 23:00 Intake Total 920 ml Output Total 270 ml Balance 650 ml Result Diagram: 05/12/1760405/12/17604 Laboratory Results Laboratory Tests Test 05/12/17 06:05 White Blood Count 5.2 TH/MM3 Red Blood Count 2.11 MIL/MM3 Hemoglobin 7.5 GM/DL Hematocrit 21.3 % Mean Corpuscular Volume 101.0 FL Mean Corpuscular Hemoglobin 35.7 PG Mean Corpuscular Hemoglobin 35.4 % Concent Red Cell Distribution Width 20.3 % Platelet Count 74 TH/MM3 Mean Platelet Volume 7.4 FL Neutrophils (%) (Auto) % Lymphocytes (%) (Auto) % Monocytes (%) (Auto) % Eosinophils (%) (Auto) % Basophils (%) (Auto) % Neutrophils # (Auto) TH/MM3 Lymphocytes # (Auto) TH/MM3 Monocytes # (Auto) TH/MM3 Eosinophils # (Auto) TH/MM3 Basophils # (Auto) TH/MM3 CBC Comment AUTO DIFF Sodium Level 139 MEQ/L Potassium Level 3.6 MEQ/L Chloride Level 107 MEQ/L Carbon Dioxide Level 21.9 MEQ/L Anion Gap 10 MEQ/L Blood Urea Nitrogen 20 MG/DL Creatinine 1.09 MG/DL Estimat Glomerular Filtration 68 ML/MIN Rate Random Glucose 95 MG/DL Calcium Level 8.0 MG/DL Imaging Studies Last 24 hours Impressions Bone Biopsy CT 05/11/17 1309 Signed Impressions: Service Date/Time: Thursday, May 11, 2017 15:10 - CONCLUSION: 1. Uncomplicated CT guided bone marrow aspirate. 2. Uncomplicated CT guided bone marrow biopsy. Ryan Hoover MD FACR Administered Medications Medications (Trade) Dose Ordered Sig/Maritza Route PRN Reason Start Time Stop Time Status Last Admin Dose Admin Sodium Chloride (NS 1000 ml Inj) 1,000 ml @ 100 mls/hr Q10H IV 05/10/17 15:00 05/12/17 05:35 Acetaminophen (Tylenol) 650 mg Q4H PRN PO TEMP > 100.4 05/10/17 15:00 05/11/17 20:25 Senna/Docusate Sodium (Cinthia-Colace) 1 tab BID PO 05/10/17 21:00 05/11/17 19:39 Metoprolol Tartrate 50 mg 50 mg DAILY PO 05/11/17 09:00 05/11/17 08:10 Vancomycin HCl 1000 mg/Sodium Chloride 250 ml @ 250 mls/hr Q12H IV 05/11/17 09:00 05/11/17 21:02 Cefepime HCl/ Sodium Chloride (Maxipime Inj/NS Inj) 100 ml @ 200 mls/hr Q12H IV 05/11/17 08:00 05/11/17 19:33 Oxycodone HCl (Roxicodone) 5 mg Q4H PRN PO PAIN SCALE 3 TO 5 05/11/17 12:00 05/12/17 01:23 Objective Remarks GENERAL: Pleasant middle aged fellow, lying in bed in [facility]. SKIN: Warm and dry. firm quarter sized mass, left axilla. HEAD: Normocephalic. EYES: No injection or drainage. NECK: Supple, trachea midline. CARDIOVASCULAR: Regular rate and rhythm RESPIRATORY: Breath sounds equal bilaterally. No accessory muscle use. GASTROINTESTINAL: Abdomen soft, non-tender, nondistended. EXTREMITIES: No cyanosis NEUROLOGICAL: No obvious focal deficit. Awake, alert, and oriented x3. Assessment/Plan Assessment Mr. Gutiérrez is a 66-year-old man who comes in to the hospital upon the recommendation of his PCP for further workup and evaluation of rapid onset anemia. Subjectively the patient had been reporting increasing fatigue, breathlessness with exertion and unintended weight loss over the past several weeks. His hemoglobin at presentation was noted to be 8.1 gm/dl associated with leukopenia and thrombocytopenia as well. Interestingly he has a high percentage of monocytes in the peripheral circulation and this was verified on peripheral smear review by myself. The concern is for a primary bone marrow disorder such as a myeloproliferative neoplasm versus chronic myelomonocytic leukemia (CMML). Plan 1. Suspected myeloproliferative neoplasm/CMML: s/p bone marrow biopsy. await cytology 2. Anemia: Suspect secondary to marrow dysfunction, s/p 2units pRBC yesterday. may need 1 more unit today. will check H/H this afternoon. 3. Tenderness warmth and redness along with swelling in the left axilla: soft tissue u/s shows no abscess, ?hydradenitis suppurativa. will monitor. currently on Vanco and Cefepime. 4. continue neutropenic precautions Attending Statement The exam, history, and the medical decision-making described in the above note were completed with the assistance of the mid-level provider. I reviewed and agree with the findings presented. I attest that I had a [id number] encounter with the patient on the same day, and personally performed and documented my assessment and findings in the medical record. 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 Emerging therapeutic [id number] not yet approved by FDA, discussed with pharmacy unable to order. Plan on induction 7+3, baseline echo, placement of double lumen souza catheter. Fevers continue to be monitored, abx therapy continue. Induction will need to be initiated. Supportive therapy continue. Nettie Lutz May 12, 2017 09:31 Neva Palmer MD May 12, 2017 22:14
[2017-05-12 09:32] LABS: PLATELET ESTIMATE SMEAR LOW (NORMAL); PLATELET MORPHOLOGY NORMAL (NORMAL); SCAN/DIFF FINAL DIFF MANUAL
[2017-05-12 09:39] LABS: POLYS (SEG NEUTROPHILS) 0 % (16-70)
[2017-05-12] MEDS: amLODIPine BESYLATE 5 MG TAB PO SCH (09:42)
[2017-05-12] MEDS: LISINOPRIL 20 MG TAB PO SCH (09:42)
[2017-05-12] MEDS: METOPROLOL TARTRATE 50 MG TAB PO SCH (09:42)
[2017-05-12] MEDS: ATORVASTATIN 20 MG TAB PO SCH (09:43)
[2017-05-12] MEDS: VANCOMYCIN INJ 1,000 MG in SODIUM CHLOR 0.9% 250 ML INJ 250 ML IV SCH ×2 (09:43→20:56)
[2017-05-12] MEDS: SODIUM CHLORIDE 0.9% FLUSH 10 ML FLUSH IV FLUSH SCH ×2 (09:44→20:56)
[2017-05-12] MEDS ORDERED: diphenhydrAMINE HCL 25 MG CAP PO PRN (10:00)
[2017-05-12] MEDS ORDERED: ACETAMINOPHEN 325 MG TAB PO PRN (10:00)
[2017-05-12] MEDS ORDERED: SODIUM CHLOR 0.9% 250 ML INJ 250 ML IV ONE (10:00)
--- NOTE | 2017-05-12 13:03 | HHI.PR ---
Subjective Remarks The patient was resting in bed comfortably. He had no acute complaints. He was not sure what was going on with the infection in his left armpit. Discussed with nursing. Objective Vitals Vital Signs Date Time Temp Pulse Resp B/P Pulse Ox O2 Delivery O2 Flow Rate FiO2 05/12/17 12:00 100.8 99 18 124/67 85 05/12/17 08:30 93 21 05/12/17 08:00 99.8 100 18 136/73 92 05/12/17 04:00 100.1 118 20 132/76 92 05/12/17 00:00 98.0 99 21 120/60 93 05/11/17 22:17 20 05/11/17 21:22 99.4 05/11/17 20:50 99.0 05/11/17 20:44 21 05/11/17 20:00 100.4 105 22 122/67 94 05/11/17 16:59 99.0 93 16 123/68 94 05/11/17 16:00 82 18 121/65 95 05/11/17 15:45 97.8 85 18 121/69 93 05/11/17 13:45 99.7 87 18 103/62 I/O 05/11/17 05/11/17 05/11/17 05/12/17 05/12/17 05/12/17 07:00 15:00 23:00 07:00 15:00 23:00 Intake Total 612 ml 1154 ml 920 ml Output Total 870 ml 700 ml 200 ml 270 ml 575 ml Balance -258 ml -700 ml 954 ml 650 ml -575 ml Intake Oral 480 ml 120 ml IV Total 612 ml 800 ml Packed Cells 674 ml Output Urine Total 870 ml 700 ml 200 ml 270 ml 575 ml Result Diagram: 05/12/17 0605 05/12/17 0605 Imaging Last Impressions Bone Biopsy CT 05/11/17 1309 Signed Impressions: Service Date/Time: Thursday, May 11, 2017 15:10 - CONCLUSION: 1. Uncomplicated CT guided bone marrow aspirate. 2. Uncomplicated CT guided bone marrow biopsy. Ryan Hoover MD FACR Soft Tissue Ultrasound 05/11/17 0000 Signed Impressions: Service Date/Time: Thursday, May 11, 2017 08:27 - CONCLUSION: Negative for abscess. Edematous changes in the soft tissues of the left axilla. Hank Nixon MD Objective Remarks GENERAL: This is a well-nourished, well-developed patient, in no apparent distress. EYES: Extraocular motions intact. No scleral icterus. No injection or drainage. ENT: Nose without drainage. NECK: Trachea midline. CARDIOVASCULAR: RRR w no murmurs RESPIRATORY: Clear to auscultation. Breath sounds equal bilaterally. No wheezes GASTROINTESTINAL: Abdomen soft, non-tender, nondistended. No palpable masses. No guarding. MUSCULOSKELETAL: Extremities without edema. No joint tenderness, effusion, or edema noted. Left axilla with area of induration under axilla, no pus or drainage, some erythema noted, tender to palpation. NEUROLOGICAL: Awake and alert. Cranial nerves II through XII intact. Motor and sensory grossly within normal limits. Normal speech. Heart of hearing, reads lips. PSYCH: Mood and affect appropriate. Medications and IVs Current Medications Medications (Trade) Dose Ordered Sig/Maritza Route Start Time Stop Time Status Last Admin (NS 1000 ml Inj) 1,000 ml @ 100 mls/hr Q10H IV 05/10/17 15:00 05/12/17 05:35 (NS Flush) 2 ml UNSCH PRN IV FLUSH 05/10/17 15:00 (NS Flush) 2 ml BID IV FLUSH 05/10/17 21:00 05/12/17 09:44 (Tylenol) 650 mg Q4H PRN PO 05/10/17 15:00 05/11/17 20:25 (Zofran Inj) 4 mg Q6H PRN IVP 05/10/17 15:00 (Cinthia-Colace) 1 tab BID PO 05/10/17 21:00 05/11/17 19:39 (Milk Of Magnesia Liq) 30 ml Q12H PRN PO 05/10/17 15:00 (Senokot) 17.2 mg Q12H PRN PO 05/10/17 15:00 (Dulcolax Supp) 10 mg DAILY PRN RECTAL 05/10/17 15:00 (Lactulose Liq) 30 ml DAILY PRN PO 05/10/17 15:00 (Norvasc) 5 mg DAILY PO 05/11/17 09:00 05/12/17 09:42 (Lipitor) 20 mg DAILY PO 05/11/17 09:00 05/12/17 09:43 (Prinivil) 20 mg DAILY PO 05/11/17 09:00 05/12/17 09:42 Metoprolol Tartrate 50 mg 50 mg DAILY PO 05/11/17 09:00 05/12/17 09:42 Vancomycin HCl 1000 mg/Sodium Chloride 250 ml @ 250 mls/hr Q12H IV 05/11/17 09:00 05/12/17 09:43 (Maxipime Inj/NS Inj) 100 ml @ 200 mls/hr Q12H IV 05/11/17 08:00 05/12/17 08:00 (Roxicodone) 5 mg Q4H PRN PO 05/11/17 12:00 05/12/17 01:23 Oxycodone HCl 10 mg 10 mg Q6H PRN PO 05/11/17 12:00 (NS 250 ml Inj) 250 ml @ 15 mls/hr ONCE ONCE IV 05/12/17 10:00 05/13/17 02:39 A/P Problem List: (1) Pancytopenia ICD Code: D61.818 Status: Acute (2) Macrocytic anemia ICD Code: D53.9 Status: Acute (3) Alcohol abuse ICD Code: F10.10 Status: Acute (4) S/P tympanic tube insertion ICD Code: Z96.22 Status: Acute Assessment and Plan Pancytopenia Medical oncology following, suspecting myeloproliferative neoplasm/CMML. HIV negative. S/p bone marrow biopsy. B12 level normal. - follow pathology. - follow CBC and transfuse per hematology. - thiamine level pending. Neutropenic fever/ Left axillary cellulitis US axilla negative for abscess. - continue vancomycin and cefepime for now. - CXR and UA pending. - ID consult requested. HTN, Currently stable. - continue home medications lisinopril, amlodipine. Afib Rate controlled at this time. - Monitor tele. - Hold Eliquis for now due to pancytopenia. Ear pain S/p tympanic tube placement by ENT for chronic ear infection. - continue antibiotics. - outpt follow up. Alcohol abuse Chronic. - Withdrawal precautions: sz and fall precaution in place. - Encouraged to quit. - on CIWA protocol if needed. PPx: SCDs Discharge Planning Awaiting clinical improvement Sayess,Cy. DO May 12, 2017 13:03
--- NOTE | 2017-05-12 15:57 | RADRPT ---
EXAM DATE/TIME: 05/12/2017 14:53 [facility] COMPARISON: CHEST SINGLE AP, August 09, 2015, 7:51. INDICATIONS : Fever and short of breath. MEDICAL HISTORY : Hypercholesterolemia. Hypertension. Arthritis. Afib. Hyperlipidemia. Dyspnea. SURGICAL HISTORY : Tonsillectomy. Appendectomy. Hernia repair. Left knee arthroscopy. ENCOUNTER: Initial ACUITY: 2 days PAIN SCORE: 0/10 LOCATION: Bilateral chest FINDINGS: The heart size is mildly enlarged. The lungs are grossly clear. No effusion is seen. CONCLUSION: Mild cardiomegaly. Emerson Farias MD on May 12, 2017 at 15:54 Board Certified Radiologist. This report was verified electronically.
[2017-05-12 16:58] LABS: HEMATOCRIT 20.5 % (39.0-51.0); REVIEW FLAG FINAL
[2017-05-12] MEDS: DOCUSATE SODIUM 50 MG/SENNA 8.6 MG TAB PO SCH (21:01)
[2017-05-13] VITALS (16 sets, daily range): BP systolic 103–161; BP diastolic 57–82; PULSE 76–124; RESP 18–22; TEMP 98–100.7; O2SAT 87–95
[2017-05-13 01:33] LABS: BLOOD, URINE TRACE (NEG); COMMENT (UR) CULT NOT INDICATED; CULTURE IF INDICATED CULT NOT INDICATED; GLUCOSE,URINE NEG (NEG); KETONE, URINE 10 mg/dL (NEG); MUCUS URINE FEW /lpf (OCC); NITRITE,URINE NEG (NEG); PH, URINE 5.5 (5.0-8.5); URINE COLOR YELLOW (YELLW/STRAW)
[2017-05-13] MEDS: ACETAMINOPHEN 325 MG TAB PO PRN ×3 (01:37→23:18)
[2017-05-13] MEDS: SODIUM CHLOR 0.9% 1000 ML INJ 1,000 ML IV SCH ×2 (04:54→23:19)
[2017-05-13 06:34] LABS: MEAN CELL VOLUME 98.7 FL (80.0-100.0); MEAN CORPUSCULAR HEMOGLOBIN 34.8 PG (27.0-34.0); MEAN CORPUSCULAR HGB CONC 35.2 % (32.0-36.0); PLATELET COUNT 72 TH/MM3 (150-450); RED BLOOD COUNT 2.01 MIL/MM3 (4.50-5.90); RED CELL DISTRIBUTION WIDTH 21.1 % (11.6-17.2); WHITE BLOOD COUNT 4.1 TH/MM3 (4.0-11.0)
[2017-05-13 06:40] LABS: HEMATOCRIT 19.8 % (39.0-51.0); HEMO FLAGS AUTO DIFF
[2017-05-13 06:45] LABS: APTT (PATIENT) 45.5 SEC (24.3-30.1); INTERNATIONAL NORMALIZED RATIO 1.3 RATIO; PROTHROMBIN TIME - PATIENT 14.5 SEC (9.8-11.6)
[2017-05-13 07:58] LABS: BLASTS 3 % (0-0); NEUTROPHIL # MANUAL DIFF 0.3 TH/MM3 (1.8-7.7); POLYS (SEG NEUTROPHILS) 8 % (16-70); WBC DIFF SAMPLE 100
[2017-05-13 07:59] LABS: PLATELET ESTIMATE SMEAR LOW (NORMAL); PLATELET MORPHOLOGY NORMAL (NORMAL); SCAN/DIFF FINAL DIFF MANUAL
[2017-05-13] MEDS ORDERED: SODIUM CHLOR 0.9% 250 ML INJ 250 ML IV ONE ×2 (08:00→08:15)
[2017-05-13] MEDS ORDERED: diphenhydrAMINE HCL 25 MG CAP PO PRN (08:00)
[2017-05-13] MEDS ORDERED: ACETAMINOPHEN 325 MG TAB PO PRN ×2 (08:00→08:15)
[2017-05-13] MEDS ORDERED: FUROSEMIDE 20 MG/2 ML VIAL IV ONE (08:15)
[2017-05-13] MEDS: amLODIPine BESYLATE 5 MG TAB PO SCH (08:26)
[2017-05-13] MEDS: METOPROLOL TARTRATE 50 MG TAB PO SCH ×2 (08:26→20:09)
[2017-05-13] MEDS: DOCUSATE SODIUM 50 MG/SENNA 8.6 MG TAB PO SCH ×2 (08:26→20:09)
[2017-05-13] MEDS: LISINOPRIL 20 MG TAB PO SCH (08:26)
[2017-05-13] MEDS: ATORVASTATIN 20 MG TAB PO SCH (08:26)
[2017-05-13] MEDS: CEFEPIME INJ 2,000 MG in SODIUM CHLORIDE 0.9% INJ 100 ML IV SCH ×2 (08:27→20:09)
[2017-05-13] MEDS ORDERED: Vancomycin Consult Pharmacy 1 EA OTHER SCH (08:45)
--- NOTE | 2017-05-13 08:56 | PD.CONS ---
History of Present Illness Service Infectious disease Consult Requested By Beny Ocampo Reason for Consult Evaluate patient with fever and neutropenia Primary Care Physician Cristiane Holguin Diagnoses: History of Present Illness Patient seen and examined. Records reviewed. Patient is a 66-year-old male, admitted to the hospital for further evaluation of his abnormal blood work. Patient apparently THE last 2 months has been having problem with significant weakness. His been having some dizziness which is orthostatic, and some dyspnea on exertion. He also has had some weight loss mostly because of poor appetite. Recently he had some pain in his right ear, and was seen by an ENT for diagnosed him to have an ear infection and tubes were placed in his right ear. This was actually placed on the day he was admitted to the hospital. Patient was seen by his primary care physician for his symptoms, and had blood work done. On the day of admission, the patient was called because his blood work was abnormal, and he was instructed to go to the hospital for further evaluation and treatment. Patient was found to have pancytopenia, and his differential count is quite abnormal with predominance of monocytes. 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 Patient is pancytopenic, and he has had low-grade fevers. He was found to have a tender nodule with redness in his left axilla, and the patient really didn't know how long it's been there, but he has never had any problem similar to this. Ultrasound did not show any abscess in the left axilla. Patient has been on cefepime and vancomycin empirically for his fever and neutropenia. He denies any respiratory complaint. Has not had any nausea or vomiting, abdominal pain, or urinary complaints. His urinalysis is unremarkable. Chest x -ray did not show any acute infiltrate. Infectious disease consultation has been requested to evaluate the patient. Review of Systems Constitutional: COMPLAINS OF: Fever, Weight loss, Dizziness, Change in appetite Eyes: DENIES: Eye pain Ears, nose, mouth, throat: COMPLAINS OF: Hearing loss, Ear Pain, DENIES: Nasal discharge, Oral lesions, Throat pain Respiratory: COMPLAINS OF: Shortness of breath, DENIES: Cough Cardiovascular: COMPLAINS OF: Dyspnea on Exertion, DENIES: Chest pain, Palpitations, Syncope Gastrointestinal: DENIES: Abdominal pain Genitourinary: DENIES: Dysuria Musculoskeletal: DENIES: Joint pain, Joint Swelling, Back pain Integumentary: DENIES: Pruritus, Rash Hematologic/lymphatic: DENIES: Bruising Neurologic: DENIES: Headache, Localized weakness Psychiatric: DENIES: Confusion, Hallucinations Past Family Social History Allergies: Coded Allergies: No Known Allergies (Unverified , 05/10/17) Past Medical History Atrial fibrillation Hypertension Hyperlipidemia Arthritis Past Surgical History Hernia repair Tonsillectomy Left knee replacement Active Ordered Medications Tylenol Norvasc Lipitor Dulcolax Cefepime Benadryl Lactulose Prinivil MOM Lopressor Zofran Oxycodone Cinthia-Colace Senokot Vancomycin Family History CVA Otherwise noncontributory to current ID problem Social History No smoking Drinks 5-7 beers per day Denies illicit drug Physical Exam Vital Signs Vital Signs Date Time Temp Pulse Resp B/P Pulse Ox O2 Delivery O2 Flow Rate FiO2 05/13/17 08:00 98.0 120 18 161/79 94 05/13/17 04:00 99.3 103 18 132/79 93 05/13/17 01:37 100.7 05/13/17 00:00 100.2 106 18 138/66 95 05/12/17 20:29 93 Nasal Cannula 3.00 05/12/17 20:00 98.7 87 19 111/64 93 05/12/17 16:00 98.4 90 18 117/62 94 05/12/17 14:23 100.5 05/12/17 12:00 100.8 99 18 124/67 85 Physical Exam GENERAL: Patient is a well-nourished, well-developed CM,, awake and alert, not in respiratory distress. SKIN: Warm and dry. No generalized rash, no ecchymoses and no evidence of embolic lesions. HEAD: Atraumatic. Normocephalic. No temporal wasting, or tenderness. EYES: Pale conjunctiva. No petechia or hemorrhage. Pupils equal, round and reactive to light. Extraocular movements full and intact. No scleral icterus. No injection or drainage. EARS, NOSE AND THROAT: Nose without bleeding or purulent nasal discharge. No sinus tenderness. Mucous membranes pink and moist. No oral lesions noted. No exudate. No oral thrush. He is edentulous NECK: Trachea midline. Supple and not tender, no meningeal signs CARDIOVASCULAR: Irregular rate and rhythm. No murmurs, rubs or gallops heard RESPIRATORY: Clear to auscultation. Breath sounds equal bilaterally. No rales , wheezing or rhonchi ABDOMEN: Soft, non-tender, nondistended. Bowel sounds present and normoactive. No guarding. No rebound. No organomegaly. EXTREMITIES: No clubbing, cyanosis, or edema. No joint effusion, has good ROM. No calf tenderness. Well perfused and warm. L axilla - there is an indurated area about 2 inch x 1 in size, tender, with a small area of redness almost at the center. NEUROLOGICAL: Awake and alert. Cranial nerves grossly intact. Motor grossly within normal limits. PSYCHIATRIC: Normal affect, calm and cooperative. LINE: No evidence of infection Laboratory Laboratory Tests Test 05/12/17 05/12/17 05/12/17 05/13/17 09:31 16:00 23:10 05:00 Blood Type A POSITIVE Crossmatch Leukocyte-Reduced Red Blood Cells Blood Bank Comment Hemoglobin 7.2 7.0 Hematocrit 20.5 19.8 Urine Color YELLOW Urine Turbidity CLEAR Urine pH 5.5 Urine Specific [place] 1.018 Urine Protein 30 Urine Glucose (UA) NEG Urine Ketones 10 Urine Occult Blood TRACE Urine Nitrite NEG Urine Bilirubin NEG Urine Urobilinogen LESS THAN 2.0 Urine Leukocyte Esterase NEG Urine RBC 3 Urine WBC 1 Urine Mucus FEW Microscopic Urinalysis Comment CULT NOT INDICATED White Blood Count 4.1 Red Blood Count 2.01 Mean Corpuscular Volume 98.7 Mean Corpuscular Hemoglobin 34.8 Mean Corpuscular Hemoglobin 35.2 Concent Red Cell Distribution Width 21.1 Platelet Count 72 Mean Platelet Volume 7.6 Neutrophils (%) (Auto) Lymphocytes (%) (Auto) Monocytes (%) (Auto) Eosinophils (%) (Auto) Basophils (%) (Auto) Neutrophils # (Auto) Lymphocytes # (Auto) Monocytes # (Auto) Eosinophils # (Auto) Basophils # (Auto) CBC Comment AUTO DIFF Differential Total Cells 100 Counted Neutrophils % (Manual) 8 Lymphocytes % 31 Monocytes % 58 Neutrophils # (Manual) 0.3 Differential Comment FINAL DIFF MANUAL Blastocytes 3 Platelet Estimate LOW Platelet Morphology Comment NORMAL Test 05/13/17 05:20 Prothrombin Time 14.5 Prothromb Time International 1.3 Ratio Activated Partial 45.5 Thromboplast Time Date/Time Procedure Status Source Growth 05/12/17 16:05 Aerobic Blood Culture Received Blood Peripheral Pending 05/12/17 16:05 Anaerobic Blood Culture Received Blood Peripheral Pending Result Diagram: 05/13/17 0500 05/12/17 0605 Imaging RADIOLOGY STUDIES/FILMS REVIEWED Chest X-Ray 05/12/17 0000 Signed Impressions: Service Date/Time: Friday, May 12, 2017 14:53 - CONCLUSION: Mild cardiomegaly. Emerson Farias MD Bone Biopsy CT 05/11/17 1309 Signed Impressions: Service Date/Time: Thursday, May 11, 2017 15:10 - CONCLUSION: 1. Uncomplicated CT guided bone marrow aspirate. 2. Uncomplicated CT guided bone marrow biopsy. Ryan Hoover MD FACR Soft Tissue Ultrasound 05/11/17 0000 Signed Impressions: Service Date/Time: Thursday, May 11, 2017 08:27 - CONCLUSION: Negative for abscess. Edematous changes in the soft tissues of the left axilla. Hank Nixon MD Assessment and Plan Assessment and Plan IMPRESSION Fever, patient with newly Dx leukemia, monocytic - has possible follicultis or hidradenitis L axilla - has rubes to R ear for infection - no other obvious source Acute Monocytic leukemia, with pancytopenia RECOMMENDATION Hematology planning to start Rx Continue vanco and Cefepime for now Follow temps Follow C/S Monitor progress I will follow with you and make further recommendation on his Abx Thank you for this consultation Discussed Condition With D/W Susie Mejía MD May 13, 2017 08:56
--- NOTE | 2017-05-13 09:46 | PD.ONC.PN ---
Subjective Subjective Remarks Tmax 100.7 overnight. Was not able to receive blood yesterday d/t fever--per nursing staff, received about half the unit. Feels short of breath with exertion. Otherwise without complaints. Objective Data Date Time Temp Pulse Resp B/P Pulse Ox O2 Delivery O2 Flow Rate FiO2 05/13/17 08:00 98.0 120 18 161/79 94 05/13/17 04:00 99.3 103 18 132/79 93 05/13/17 01:37 100.7 05/13/17 00:00 100.2 106 18 138/66 95 05/12/17 20:29 93 Nasal Cannula 3.00 05/12/17 20:00 98.7 87 19 111/64 93 05/12/17 16:00 98.4 90 18 117/62 94 05/12/17 14:23 100.5 05/12/17 12:00 100.8 99 18 124/67 85 05/13/17 05/13/17 05/13/17 07:00 15:00 23:00 Intake Total 120 ml Output Total 575 ml 300 ml Balance -455 ml -300 ml Result Diagram: 05/13/17 0500 05/12/17 0605 Laboratory Results Laboratory Tests Test 05/12/17 05/12/17 05/13/17 05/13/17 16:00 23:10 05:00 05:20 Hemoglobin 7.2 GM/DL 7.0 GM/DL Hematocrit 20.5 % 19.8 % Urine Color YELLOW Urine Turbidity CLEAR Urine pH 5.5 Urine Specific [place] 1.018 Urine Protein 30 mg/dL Urine Glucose (UA) NEG mg/dL Urine Ketones 10 mg/dL Urine Occult Blood TRACE Urine Nitrite NEG Urine Bilirubin NEG Urine Urobilinogen LESS THAN 2.0 MG/DL Urine Leukocyte Esterase NEG Urine RBC 3 /hpf Urine WBC 1 /hpf Urine Mucus FEW /lpf Microscopic Urinalysis Comment CULT NOT INDICATED White Blood Count 4.1 TH/MM3 Red Blood Count 2.01 MIL/MM3 Mean Corpuscular Volume 98.7 FL Mean Corpuscular Hemoglobin 34.8 PG Mean Corpuscular Hemoglobin 35.2 % Concent Red Cell Distribution Width 21.1 % Platelet Count 72 TH/MM3 Mean Platelet Volume 7.6 FL Neutrophils (%) (Auto) % Lymphocytes (%) (Auto) % Monocytes (%) (Auto) % Eosinophils (%) (Auto) % Basophils (%) (Auto) % Neutrophils # (Auto) TH/MM3 Lymphocytes # (Auto) TH/MM3 Monocytes # (Auto) TH/MM3 Eosinophils # (Auto) TH/MM3 Basophils # (Auto) TH/MM3 CBC Comment AUTO DIFF Differential Total Cells 100 Counted Neutrophils % (Manual) 8 % Lymphocytes % 31 % Monocytes % 58 % Neutrophils # (Manual) 0.3 TH/MM3 Differential Comment FINAL DIFF MANUAL Blastocytes 3 % Platelet Estimate LOW Platelet Morphology Comment NORMAL Prothrombin Time 14.5 SEC Prothromb Time International 1.3 RATIO Ratio Activated Partial 45.5 SEC Thromboplast Time Culture Results Microbiology Date/Time Procedure Status Source Growth 05/12/17 16:00 Aerobic Blood Culture Received Blood Peripheral Pending 05/12/17 16:00 Anaerobic Blood Culture Received Blood Peripheral Pending 05/12/17 16:05 Aerobic Blood Culture Received Blood Peripheral Pending 05/12/17 16:05 Anaerobic Blood Culture Received Blood Peripheral Pending Administered Medications Medications (Trade) Dose Ordered Sig/Maritza Route PRN Reason Start Time Stop Time Status Last Admin Dose Admin Sodium Chloride (NS 1000 ml Inj) 1,000 ml @ 100 mls/hr Q10H IV 05/10/17 15:00 05/13/17 04:54 Sodium Chloride (NS Flush) 2 ml BID IV FLUSH 05/10/17 21:00 05/12/17 09:44 Acetaminophen (Tylenol) 650 mg Q4H PRN PO TEMP > 100.4 05/10/17 15:00 05/13/17 01:37 Senna/Docusate Sodium (Cinthia-Colace) 1 tab BID PO 05/10/17 21:00 05/13/17 08:26 Amlodipine Besylate (Norvasc) 5 mg DAILY PO 05/11/17 09:00 05/13/17 08:26 Atorvastatin Calcium (Lipitor) 20 mg DAILY PO 05/11/17 09:00 05/13/17 08:26 Lisinopril (Prinivil) 20 mg DAILY PO 05/11/17 09:00 05/13/17 08:26 Metoprolol Tartrate 50 mg 50 mg DAILY PO 05/11/17 09:00 05/13/17 08:26 Vancomycin HCl 1000 mg/Sodium Chloride 250 ml @ 250 mls/hr Q12H IV 05/11/17 09:00 05/12/17 20:56 Cefepime HCl/ Sodium Chloride (Maxipime Inj/NS Inj) 100 ml @ 200 mls/hr Q12H IV 05/11/17 08:00 05/13/17 08:27 Oxycodone HCl (Roxicodone) 5 mg Q4H PRN PO PAIN SCALE 3 TO 5 05/11/17 12:00 05/12/17 01:23 Objective Remarks GENERAL: Middle aged male, hard of hearing, upright in bed in nad SKIN: Warm and dry. HEAD: Normocephalic. EYES: No injection or drainage. NECK: Supple, trachea midline CARDIOVASCULAR: tachycardic rate, regular rhythm. RESPIRATORY: Breath sounds equal bilaterally. No accessory muscle use. GASTROINTESTINAL: Abdomen soft, non-tender, nondistended. EXTREMITIES: No cyanosis NEUROLOGICAL: No obvious focal deficit. Awake, alert, and oriented x3. Assessment/Plan Problem List: (1) Acute myelomonocytic leukemia Status: Acute Plan: --flow cytometry indicates acute myelomonocytic leukemia --plan to place souza catheter and start 7+3 chemotherapy AFTER echo returns tomorrow (2) Neutropenic fever Status: Acute Plan: --ID following --on Vanco, Cefepime Assessment 66y/o male with newly diagnosed AML. Mr. Gutiérrez is a 66-year-old man who comes in to the hospital upon the recommendation of his PCP for further workup and evaluation of rapid onset anemia. Subjectively the patient had been reporting increasing fatigue, breathlessness with exertion and unintended weight loss over the past several weeks. His hemoglobin at presentation was noted to be 8.1 gm/dl associated with leukopenia and thrombocytopenia as well. Interestingly he has a high percentage of monocytes in the peripheral circulation and this was verified on peripheral smear review by myself. The concern is for a primary bone marrow disorder such as a myeloproliferative neoplasm versus chronic myelomonocytic leukemia (CMML). Plan 1. consult invasive radiology for Souza catheter placement 2. start Induction chemotherapy with 7+3 tomorrow AFTER echo returns. 3. continue antibiotics for neutropenic fever 4. give 2 units pRBC today 5. I discussed code status with the patient, for now he would like to be a full code. I discussed healthcare surrogacy with patient and left form with him--he is going to think about who he would like to designate. Attending Statement The exam, history, and the medical decision-making described in the above note were completed with the assistance of the mid-level provider. I reviewed and agree with the findings presented. I attest that I had a [id number] encounter with the patient on the same day, and personally performed and documented my assessment and findings in the medical record. Pt seen and examined with friend at bedside to listen. Hard of hearing. Discussed diagnosis of AMML, cytogenetics still pending. BM biopsy results to evaluate for underlying MDS/MPD still pending. Discussed need for induction. Pt decisive that he would like aggressive induction therapy. Discussed at lenght the process of induction, and consolidation and that the chances of remission with standard7+3 regimen in 66 y/o about 55%. Day 14 and Day 28 bone marrow will be performed to check for response. We need to achieve remission after induction therapy to have cure and that he will need further consolidation therapy. Without treatment, the leukemic process will continue and patients usually succumb to infection even with transfusion support. A palliative treatment could be offered if we see evidence of underlying BM disorder in bone marrow biopsy. He is in agreement with induction therapy with curative intent. Problem Qualifiers (1) Acute myelomonocytic leukemia: Qualified Code: C92.50 - Acute myelomonocytic leukemia not having achieved remission Nettie Lutz May 13, 2017 09:46 Neva Palmer MD May 13, 2017 12:21
[2017-05-13 09:58] LABS: ANION GAP 12 MEQ/L (5-15); AST (GOT) 13 U/L (15-37); BICARBONATE 19.8 MEQ/L (21.0-32.0); BLOOD UREA NITROGEN 18 MG/DL (7-18); CHLORIDE 107 MEQ/L (98-107); GLOMERULAR FILTRATION RATE 84 ML/MIN (>89); POTASSIUM 3.5 MEQ/L (3.5-5.1); SODIUM (NA) 139 MEQ/L (136-145)
[2017-05-13 10:00] LABS: ALT (GPT) 12 U/L (12-78)
[2017-05-13 10:02] LABS: ALKALINE PHOSPHATASE 66 U/L (45-117); TOTAL BILIRUBIN ADULT 2.2 MG/DL (0.2-1.0)
[2017-05-13] MEDS: diphenhydrAMINE HCL 25 MG CAP PO PRN ×2 (12:41→16:50)
--- NOTE | 2017-05-13 14:39 | HHI.PR ---
Subjective Remarks The pt was resting comfortably. He had no acute complaints. Discussed with nursing. Objective Vitals Vital Signs Date Time Temp Pulse Resp B/P Pulse Ox O2 Delivery O2 Flow Rate FiO2 05/13/17 13:15 98.0 124 20 120/58 93 05/13/17 12:00 98.6 104 18 139/68 94 05/13/17 09:00 93 Nasal Cannula 3.00 05/13/17 08:00 98.0 120 18 161/79 94 05/13/17 04:00 99.3 103 18 132/79 93 05/13/17 01:37 100.7 05/13/17 00:00 100.2 106 18 138/66 95 05/12/17 20:29 93 Nasal Cannula 3.00 05/12/17 20:00 98.7 87 19 111/64 93 05/12/17 16:00 98.4 90 18 117/62 94 I/O 05/12/17 05/12/17 05/12/17 05/13/17 05/13/17 05/13/17 07:00 15:00 23:00 07:00 15:00 23:00 Intake Total 920 ml 2567 ml 480 ml 120 ml 749 ml Output Total 270 ml 1025 ml 275 ml 575 ml 300 ml Balance 650 ml 1542 ml 205 ml -455 ml 449 ml Intake Oral 120 ml 480 ml 480 ml 120 ml IV Total 800 ml 2087 ml 749 ml Output Urine Total 270 ml 1025 ml 275 ml 575 ml 300 ml # Voids 1 # Bowel Movements 1 Result Diagram: 05/13/17 0500 05/13/17 0852 Imaging Last Impressions Chest X-Ray 05/12/17 0000 Signed Impressions: Service Date/Time: Friday, May 12, 2017 14:53 - CONCLUSION: Mild cardiomegaly. Emerson Farias MD Bone Biopsy CT 05/11/17 1309 Signed Impressions: Service Date/Time: Thursday, May 11, 2017 15:10 - CONCLUSION: 1. Uncomplicated CT guided bone marrow aspirate. 2. Uncomplicated CT guided bone marrow biopsy. Ryan Hoover MD FACR Soft Tissue Ultrasound 05/11/17 0000 Signed Impressions: Service Date/Time: Thursday, May 11, 2017 08:27 - CONCLUSION: Negative for abscess. Edematous changes in the soft tissues of the left axilla. Hank Nixon MD Objective Remarks GENERAL: This is a well-nourished, well-developed patient, in no apparent distress. EYES: Extraocular motions intact. No scleral icterus. No injection or drainage. ENT: Nose without drainage. NECK: Trachea midline. CARDIOVASCULAR: RRR w no murmurs RESPIRATORY: Clear to auscultation. Breath sounds equal bilaterally. No wheezes GASTROINTESTINAL: Abdomen soft, non-tender, nondistended. No palpable masses. No guarding. MUSCULOSKELETAL: Extremities without edema. No joint tenderness, effusion, or edema noted. Left axilla with area of induration under axilla, no pus or drainage, some erythema noted, tender to palpation. NEUROLOGICAL: Awake and alert. Cranial nerves II through XII intact. Motor and sensory grossly within normal limits. Normal speech. Heart of hearing, reads lips. PSYCH: Mood and affect appropriate. Medications and IVs Current Medications Medications (Trade) Dose Ordered Sig/Maritza Route Start Time Stop Time Status Last Admin (NS 1000 ml Inj) 1,000 ml @ 100 mls/hr Q10H IV 05/10/17 15:00 05/13/17 04:54 (NS Flush) 2 ml UNSCH PRN IV FLUSH 05/10/17 15:00 (NS Flush) 2 ml BID IV FLUSH 05/10/17 21:00 05/12/17 09:44 (Tylenol) 650 mg Q4H PRN PO 05/10/17 15:00 05/13/17 12:42 (Zofran Inj) 4 mg Q6H PRN IVP 05/10/17 15:00 (Cinthia-Colace) 1 tab BID PO 05/10/17 21:00 05/13/17 08:26 (Milk Of Magnesia Liq) 30 ml Q12H PRN PO 05/10/17 15:00 (Senokot) 17.2 mg Q12H PRN PO 05/10/17 15:00 (Dulcolax Supp) 10 mg DAILY PRN RECTAL 05/10/17 15:00 (Lactulose Liq) 30 ml DAILY PRN PO 05/10/17 15:00 (Norvasc) 5 mg DAILY PO 05/11/17 09:00 05/13/17 08:26 (Lipitor) 20 mg DAILY PO 05/11/17 09:00 05/13/17 08:26 Lisinopril 20 mg 20 mg DAILY PO 05/11/17 09:00 05/13/17 08:26 (Maxipime Inj/NS Inj) 100 ml @ 200 mls/hr Q12H IV 05/11/17 08:00 05/13/17 08:27 (Roxicodone) 5 mg Q4H PRN PO 05/11/17 12:00 05/12/17 01:23 Oxycodone HCl 10 mg 10 mg Q6H PRN PO 05/11/17 12:00 (NS 250 ml Inj) 250 ml @ 15 mls/hr ONCE ONCE IV 05/13/17 08:15 05/14/17 00:54 05/13/17 13:55 (Tylenol) 650 mg Q4H PRN PO 05/13/17 08:15 05/13/17 23:59 Diphenhydramine HCl 25 mg 25 mg Q4H PRN PO 05/13/17 08:15 05/13/17 23:59 05/13/17 12:41 Pharmacy Profile Note 0 ml @ 0 mls/hr UNSCH OTHER 05/13/17 08:45 (Vancomycin Inj/ NS 500 ml Inj) 515 ml @ 250 mls/hr Q12H IV 05/13/17 12:00 Miscellaneous Information SPECIFIC LAB TO BE DRAWN:VANCOMYCIN TROUGH DATE TO... ONCE ONCE .XX 05/15/17 11:45 05/15/17 11:46 (Lopressor) 50 mg BID PO 05/13/17 21:00 UNV (Lopressor) 25 mg ONCE ONCE PO 05/13/17 14:45 05/13/17 14:46 UNV A/P Problem List: (1) Pancytopenia ICD Code: D61.818 Status: Acute (2) Macrocytic anemia ICD Code: D53.9 Status: Acute (3) Alcohol abuse ICD Code: F10.10 Status: Acute (4) S/P tympanic tube insertion ICD Code: Z96.22 Status: Acute Assessment and Plan Pancytopenia Medical oncology following, suspecting myeloproliferative neoplasm/CMML. HIV negative. S/p bone marrow biopsy. B12 level normal. - follow pathology. - follow CBC and transfuse per hematology. - thiamine level pending. Neutropenic fever/ Left axillary cellulitis US axilla negative for abscess. CXR and UA unremarkable. ID consult appreciated. - continue vancomycin and cefepime for now. - follow up with ID. HTN, Currently stable. - continue home medications lisinopril, amlodipine. Afib Rate elevated. - Monitor tele. - Hold Eliquis for now due to pancytopenia. - increase Lopressor to 50 mg BID. Lopressor 25 mg PO x 1 now. Ear pain S/p tympanic tube placement by ENT for chronic ear infection. - continue antibiotics. - outpt follow up. Alcohol abuse Chronic. - Withdrawal precautions: sz and fall precaution in place. - Encouraged to quit. - on CIWA protocol if needed. PPx: SCDs Discharge Planning Awaiting clinical improvement Braxton Carbajal DO May 13, 2017 14:39
[2017-05-13] MEDS ORDERED: METOPROLOL TARTRATE 25 MG TAB PO ONE (14:45)
[2017-05-13] MEDS ORDERED: POTASSIUM CHLORIDE 25 MEQ EFFERVESCENT TAB PO ONE (16:45)
[2017-05-13] MEDS: SODIUM CHLORIDE 0.9% FLUSH 10 ML FLUSH IV FLUSH SCH ×2 (16:53→20:09)
[2017-05-13] MEDS: VANCOMYCIN INJ 1,500 MG in SODIUM CHLORID 0.9% 500 ML INJ 500 ML IV SCH (23:19)
[2017-05-14] VITALS (14 sets, daily range): BP systolic 128–176; BP diastolic 72–94; PULSE 65–116; RESP 16–24; TEMP 96.9–100.8; O2SAT 89–95
[2017-05-14 06:36] LABS: MEAN CELL VOLUME 94.9 FL (80.0-100.0); MEAN CORPUSCULAR HEMOGLOBIN 33.8 PG (27.0-34.0); MEAN CORPUSCULAR HGB CONC 35.6 % (32.0-36.0); PLATELET COUNT 68 TH/MM3 (150-450); RED BLOOD COUNT 2.42 MIL/MM3 (4.50-5.90); RED CELL DISTRIBUTION WIDTH 23.5 % (11.6-17.2); WHITE BLOOD COUNT 5.1 TH/MM3 (4.0-11.0)
[2017-05-14 06:42] LABS: HEMO FLAGS AUTO DIFF
[2017-05-14 06:43] LABS: APTT (PATIENT) 41.9 SEC (24.3-30.1); INTERNATIONAL NORMALIZED RATIO 1.3 RATIO; PROTHROMBIN TIME - PATIENT 15.1 SEC (9.8-11.6)
[2017-05-14 06:56] LABS: BICARBONATE 22.3 MEQ/L (21.0-32.0); POTASSIUM 3.6 MEQ/L (3.5-5.1)
[2017-05-14 06:59] LABS: INDIRECT BILIRUBIN 1.6 MG/DL (0.0-0.8); TOTAL BILIRUBIN ADULT 2.7 MG/DL (0.2-1.0)
[2017-05-14 08:01] LABS: BLASTS 2 % (0-0); NEUTROPHIL # MANUAL DIFF 0.2 TH/MM3 (1.8-7.7); POLYS (SEG NEUTROPHILS) 3 % (16-70); WBC DIFF SAMPLE 100
[2017-05-14 08:02] LABS: PLATELET ESTIMATE SMEAR LOW (NORMAL); PLATELET MORPHOLOGY NORMAL (NORMAL); SCAN/DIFF FINAL DIFF MANUAL
--- NOTE | 2017-05-14 09:24 | HHI.IDPN ---
Subjective Subjective Remarks 66 year old male, with newly Dx AML. Has had low grade temps. Notes reviewed Tmax 100.8 overnight No new complaint Very [place] To be started on chemo Antibiotics Vancomycin Cefepime Past Medical History Atrial fibrillation Hypertension Hyperlipidemia Arthritis Past Surgical History Hernia repair Tonsillectomy Left knee replacement Allergies: Coded Allergies: No Known Allergies (Unverified , 05/10/17) Objective . Vital Signs Date Time Temp Pulse Resp B/P Pulse Ox O2 Delivery O2 Flow Rate FiO2 05/14/17 07:51 102 05/14/17 04:00 99.0 102 22 133/86 93 05/14/17 01:56 98.6 116 95 05/14/17 00:00 100.8 100 20 130/72 93 05/13/17 23:26 91 4.00 05/13/17 22:03 22 94 05/13/17 21:58 76 94 05/13/17 21:50 94 Nasal Cannula 4.00 05/13/17 21:35 100.2 102 22 103/57 87 05/13/17 21:35 100.3 102 22 103/59 87 05/13/17 20:23 92 Nasal Cannula 3.00 05/13/17 20:04 96 05/13/17 20:00 98.1 99 19 103/62 94 05/13/17 17:08 99.0 118 20 134/82 91 05/13/17 16:00 99.5 105 20 123/78 92 05/13/17 13:15 98.0 124 20 120/58 93 05/13/17 12:00 98.6 104 18 139/68 94 05/13/17 05/13/17 05/14/17 14:59 22:59 06:59 Intake Total 1469 ml 751 ml 912 ml Output Total 700 ml 1025 ml 395 ml Balance 769 ml -274 ml 517 ml Intake Oral 720 ml 480 ml IV Total 749 ml 912 ml Packed Cells 271 ml Output Urine Total 700 ml 1025 ml 395 ml # Voids 1 # Bowel Movements 1 . Laboratory Tests Test 05/12/17 05/13/17 05/14/17 16:00 05:00 06:21 Hemoglobin 7.2 GM/DL 7.0 GM/DL 8.2 GM/DL Hematocrit 20.5 % 19.8 % 23.0 % White Blood Count 4.1 TH/MM3 5.1 TH/MM3 Red Blood Count 2.01 MIL/MM3 2.42 MIL/MM3 Mean Corpuscular Volume 98.7 FL 94.9 FL Mean Corpuscular Hemoglobin 34.8 PG 33.8 PG Mean Corpuscular Hemoglobin 35.2 % 35.6 % Concent Red Cell Distribution Width 21.1 % 23.5 % Platelet Count 72 TH/MM3 68 TH/MM3 Mean Platelet Volume 7.6 FL 7.3 FL Neutrophils (%) (Auto) % % Lymphocytes (%) (Auto) % % Monocytes (%) (Auto) % % Eosinophils (%) (Auto) % % Basophils (%) (Auto) % % Neutrophils # (Auto) TH/MM3 TH/MM3 Lymphocytes # (Auto) TH/MM3 TH/MM3 Monocytes # (Auto) TH/MM3 TH/MM3 Eosinophils # (Auto) TH/MM3 TH/MM3 Basophils # (Auto) TH/MM3 TH/MM3 CBC Comment AUTO DIFF AUTO DIFF Differential Total Cells 100 100 Counted Neutrophils % (Manual) 8 % 3 % Lymphocytes % 31 % 38 % Monocytes % 58 % 57 % Neutrophils # (Manual) 0.3 TH/MM3 0.2 TH/MM3 Differential Comment FINAL DIFF FINAL DIFF MANUAL MANUAL Blastocytes 3 % 2 % Platelet Estimate LOW LOW Platelet Morphology Comment NORMAL NORMAL Laboratory Tests Test 05/13/17 05/14/17 08:52 06:21 Sodium Level 139 MEQ/L 140 MEQ/L Potassium Level 3.5 MEQ/L 3.6 MEQ/L Chloride Level 107 MEQ/L 107 MEQ/L Carbon Dioxide Level 19.8 MEQ/L 22.3 MEQ/L Anion Gap 12 MEQ/L 11 MEQ/L Blood Urea Nitrogen 18 MG/DL 20 MG/DL Creatinine 0.91 MG/DL 0.85 MG/DL Estimat Glomerular Filtration 84 ML/MIN 90 ML/MIN Rate Random Glucose 90 MG/DL 108 MG/DL Calcium Level 7.8 MG/DL 8.0 MG/DL Magnesium Level 2.2 MG/DL Total Bilirubin 2.2 MG/DL 2.7 MG/DL Aspartate Amino Transf 13 U/L 18 U/L (AST/SGOT) Alanine Aminotransferase 12 U/L 12 U/L (ALT/SGPT) Alkaline Phosphatase 66 U/L 72 U/L Total Protein 7.1 GM/DL 6.4 GM/DL Albumin 2.8 GM/DL 2.6 GM/DL Direct Bilirubin 1.1 MG/DL Indirect Bilirubin 1.6 MG/DL Microbiology Date/Time Procedure Status Source Growth 05/12/17 16:00 Aerobic Blood Culture - Preliminary Resulted Blood Peripheral NO GROWTH IN 1 DAY 05/12/17 16:00 Anaerobic Blood Culture - Preliminary Resulted Blood Peripheral NO GROWTH IN 1 DAY 05/12/17 16:05 Aerobic Blood Culture - Preliminary Resulted Blood Peripheral NO GROWTH IN 1 DAY 05/12/17 16:05 Anaerobic Blood Culture - Preliminary Resulted Blood Peripheral NO GROWTH IN 1 DAY 05/14/17 06:11 Aerobic Blood Culture Received Blood Peripheral Pending 05/14/17 06:11 Anaerobic Blood Culture Received Blood Peripheral Pending 05/14/17 06:21 Aerobic Blood Culture Received Blood Peripheral Pending 05/14/17 06:21 Anaerobic Blood Culture Received Blood Peripheral Pending Imaging Last Impressions Chest X-Ray 05/12/17 0000 Signed Impressions: Service Date/Time: Friday, May 12, 2017 14:53 - CONCLUSION: Mild cardiomegaly. Emerson Farias MD Bone Biopsy CT 05/11/17 1309 Signed Impressions: Service Date/Time: Thursday, May 11, 2017 15:10 - CONCLUSION: 1. Uncomplicated CT guided bone marrow aspirate. 2. Uncomplicated CT guided bone marrow biopsy. Ryan Hoover MD FACR Soft Tissue Ultrasound 05/11/17 0000 Signed Impressions: Service Date/Time: Thursday, May 11, 2017 08:27 - CONCLUSION: Negative for abscess. Edematous changes in the soft tissues of the left axilla. Hank Nixon MD Physical Exam GENERAL: awake and alert, not in respiratory distress. SKIN: Warm and dry. No generalized rash, no ecchymoses and no evidence of embolic lesions. HEAD: Atraumatic. Normocephalic. No temporal wasting, or tenderness. EYES: Pale conjunctiva. No petechia or hemorrhage. Pupils equal, round and reactive to light. Extraocular movements full and intact. No scleral icterus. No injection or drainage. EARS, NOSE AND THROAT: Nose without bleeding or purulent nasal discharge. No sinus tenderness. Mucous membranes pink and moist. No oral lesions noted. He is edentulous. No drainage R ear NECK: Trachea midline. Supple and not tender, no meningeal signs CARDIOVASCULAR: Irregular rate and rhythm. No murmurs, rubs or gallops heard RESPIRATORY: Clear to auscultation. Breath sounds equal bilaterally. No rales , wheezing or rhonchi ABDOMEN: Soft, non-tender, nondistended. Bowel sounds present and normoactive. No guarding. No rebound. No organomegaly. EXTREMITIES: No clubbing, cyanosis, or edema. No joint effusion, has good ROM. No calf tenderness. L axilla - there is an indurated area about 2 inch x 1 in size, tender, with a small area of redness almost at the center. NEUROLOGICAL: Non-focal PSYCHIATRIC: Normal affect, calm and cooperative. LINE: No evidence of infection Assessment & Plan Remarks IMPRESSION Fever, patient with newly Dx leukemia, monocytic - has possible follicultis or hidradenitis L axilla - has rubes to R ear for infection - no other obvious source Acute Monocytic leukemia, with pancytopenia RECOMMENDATION To be started on chemo Continue vanco and Cefepime Follow temps Follow C/S Monitor progress Susie Garcia MD May 14, 2017 09:24
[2017-05-14] MEDS: CEFEPIME INJ 2,000 MG in SODIUM CHLORIDE 0.9% INJ 100 ML IV SCH ×2 (10:15→20:12)
[2017-05-14] MEDS: SODIUM CHLORIDE 0.9% FLUSH 10 ML FLUSH IV FLUSH SCH ×2 (10:16→20:14)
[2017-05-14] MEDS: SODIUM CHLOR 0.9% 1000 ML INJ 1,000 ML IV SCH (10:16)
[2017-05-14] MEDS: METOPROLOL TARTRATE 50 MG TAB PO SCH ×2 (10:17→20:13)
[2017-05-14] MEDS: DOCUSATE SODIUM 50 MG/SENNA 8.6 MG TAB PO SCH ×2 (10:17→20:13)
[2017-05-14] MEDS: amLODIPine BESYLATE 5 MG TAB PO SCH (10:17)
[2017-05-14] MEDS: LISINOPRIL 20 MG TAB PO SCH (10:17)
[2017-05-14] MEDS: ATORVASTATIN 20 MG TAB PO SCH (10:17)
[2017-05-14] MEDS ORDERED: RESP: ALBUTEROL 2.5 MG/IPRATROPIUM 0.5 MG NEB (PRN) NEB (11:45)
--- NOTE | 2017-05-14 12:05 | HHI.PR ---
Subjective Remarks The patient was having some shortness of breath. He said that he has been coughing up some mucus. He says the lesions in his left armpit are better. His friend was at the bedside. Discussed with nursing. Objective Vitals Vital Signs Date Time Temp Pulse Resp B/P Pulse Ox O2 Delivery O2 Flow Rate FiO2 05/14/17 10:20 104 95 05/14/17 10:15 99.6 108 18 134/87 89 05/14/17 08:47 93 Nasal Cannula 4.00 05/14/17 07:51 102 05/14/17 04:00 99.0 102 22 133/86 93 05/14/17 01:56 98.6 116 95 05/14/17 00:00 100.8 100 20 130/72 93 05/13/17 23:26 91 4.00 05/13/17 22:03 22 94 05/13/17 21:58 76 94 05/13/17 21:50 94 Nasal Cannula 4.00 05/13/17 21:35 100.2 102 22 103/57 87 05/13/17 21:35 100.3 102 22 103/59 87 05/13/17 20:23 92 Nasal Cannula 3.00 05/13/17 20:04 96 05/13/17 20:00 98.1 99 19 103/62 94 05/13/17 17:08 99.0 118 20 134/82 91 05/13/17 16:00 99.5 105 20 123/78 92 05/13/17 13:15 98.0 124 20 120/58 93 I/O 05/13/17 05/13/17 05/13/17 05/14/17 05/14/17 05/14/17 07:00 15:00 23:00 07:00 15:00 23:00 Intake Total 120 ml 1469 ml 751 ml 912 ml Output Total 575 ml 700 ml 1025 ml 395 ml Balance -455 ml 769 ml -274 ml 517 ml Intake Oral 120 ml 720 ml 480 ml IV Total 749 ml 912 ml Packed Cells 271 ml Output Urine Total 575 ml 700 ml 1025 ml 395 ml # Voids 1 # Bowel Movements 1 Result Diagram: 05/14/17 0621 05/14/1721 Imaging Last Impressions Chest X-Ray 05/12/17 0000 Signed Impressions: Service Date/Time: Friday, May 12, 2017 14:53 - CONCLUSION: Mild cardiomegaly. Emerson Farias MD Bone Biopsy CT 05/11/17 1309 Signed Impressions: Service Date/Time: Thursday, May 11, 2017 15:10 - CONCLUSION: 1. Uncomplicated CT guided bone marrow aspirate. 2. Uncomplicated CT guided bone marrow biopsy. Ryan Hoover MD FACR Soft Tissue Ultrasound 05/11/17 0000 Signed Impressions: Service Date/Time: Thursday, May 11, 2017 08:27 - CONCLUSION: Negative for abscess. Edematous changes in the soft tissues of the left axilla. Hank Nixon MD Objective Remarks GENERAL: This is a well-nourished, well-developed patient, in no apparent distress. EYES: Extraocular motions intact. No scleral icterus. No injection or drainage. ENT: Nose without drainage. NECK: Trachea midline. CARDIOVASCULAR: Irregularly irregular. RESPIRATORY: Clear to auscultation. Breath sounds equal bilaterally. No wheezes. GASTROINTESTINAL: Abdomen soft, non-tender, nondistended. No palpable masses. No guarding. MUSCULOSKELETAL: Extremities without edema. No joint tenderness, effusion, or edema noted. Left axilla with area of induration under axilla, no pus or drainage, some erythema noted, tender to palpation. NEUROLOGICAL: Awake and alert. Cranial nerves II through XII intact. Motor and sensory grossly within normal limits. Normal speech. Heart of hearing, reads lips. PSYCH: Mood and affect appropriate. Medications and IVs Current Medications Medications (Trade) Dose Ordered Sig/Maritaz Route Start Time Stop Time Status Last Admin (NS Flush) 2 ml UNSCH PRN IV FLUSH 05/10/17 15:00 (NS Flush) 2 ml BID IV FLUSH 05/10/17 21:00 05/13/17 16:53 (Tylenol) 650 mg Q4H PRN PO 05/10/17 15:00 05/13/17 23:18 (Zofran Inj) 4 mg Q6H PRN IVP 05/10/17 15:00 (Cinthia-Colace) 1 tab BID PO 05/10/17 21:00 05/13/17 20:09 (Milk Of Magnesia Liq) 30 ml Q12H PRN PO 05/10/17 15:00 (Senokot) 17.2 mg Q12H PRN PO 05/10/17 15:00 (Dulcolax Supp) 10 mg DAILY PRN RECTAL 05/10/17 15:00 (Lactulose Liq) 30 ml DAILY PRN PO 05/10/17 15:00 (Norvasc) 5 mg DAILY PO 05/11/17 09:00 Hold 05/14/17 10:17 (Lipitor) 20 mg DAILY PO 05/11/17 09:00 05/14/17 10:17 Lisinopril 20 mg 20 mg DAILY PO 05/11/17 09:00 05/14/17 10:17 (Maxipime Inj/NS Inj) 100 ml @ 200 mls/hr Q12H IV 05/11/17 08:00 05/14/17 10:15 (Roxicodone) 5 mg Q4H PRN PO 05/11/17 12:00 05/12/17 01:23 Oxycodone HCl 10 mg 10 mg Q6H PRN PO 05/11/17 12:00 Pharmacy Profile Note 0 ml @ 0 mls/hr UNSCH OTHER 05/13/17 08:45 (Vancomycin Inj/ NS 500 ml Inj) 515 ml @ 250 mls/hr Q12H IV 05/13/17 12:00 05/13/17 23:19 Miscellaneous Information SPECIFIC LAB TO BE DRAWN:VANCOMYCIN TROUGH DATE TO... ONCE ONCE .XX 05/15/17 11:45 05/15/17 11:46 (Lopressor) 75 mg BID PO 05/14/17 21:00 UNV (Lopressor) 25 mg ONCE ONCE PO 05/14/17 12:00 05/14/17 12:01 UNV A/P Problem List: (1) Pancytopenia ICD Code: D61.818 Status: Acute (2) Macrocytic anemia ICD Code: D53.9 Status: Acute (3) Alcohol abuse ICD Code: F10.10 Status: Acute (4) S/P tympanic tube insertion ICD Code: Z96.22 Status: Acute Assessment and Plan Pancytopenia Medical oncology following, suspecting myeloproliferative neoplasm/CMML. HIV negative. S/p bone marrow biopsy. B12 level normal. - follow pathology. - follow CBC and transfuse per hematology. - thiamine level pending. - chemotherapy likely to be started 05/14. Neutropenic fever/ Left axillary cellulitis US axilla negative for abscess. CXR and UA unremarkable. ID consult appreciated. - continue vancomycin and cefepime for now. - follow up with ID. - repeat CXR. Acute respiratory failure Possibly s/t fluid overload. On 4L NC. - d/c IVFs. Diurese if indicated. - repeat CXR. - oxygen and nebs as needed. - echo ordered. HTN Currently stable. - continue home medications lisinopril, and metoprolol. Amlodipine on hold as Lopressor is being uptitrated. Afib Rate elevated at times. - Monitor tele. - Hold Eliquis for now due to pancytopenia. - increase Lopressor to 75 mg BID. Lopressor 25 mg PO x 1 now. Ear pain S/p tympanic tube placement by ENT for chronic ear infection. - continue antibiotics. - outpt follow up. Alcohol abuse Chronic. - Withdrawal precautions: sz and fall precaution in place. - Encouraged to quit. - on CIWA protocol if needed. PPx: SCDs Discharge Planning Awaiting clinical improvement Braxton Carbajal DO May 14, 2017 12:05
[2017-05-14] MEDS ORDERED: PILL SPLITTER OTHER PRN (12:15)
--- NOTE | 2017-05-14 12:16 | PD.ONC.PN ---
Subjective Subjective Remarks Tmax 100.8 overnight. Patient waiting to go down for jang catheter placement. +cough productive of mucous. Objective Data Date Time Temp Pulse Resp B/P Pulse Ox O2 Delivery O2 Flow Rate FiO2 05/14/17 10:20 104 95 05/14/17 10:17 Nasal Cannula 4.00 05/14/17 10:15 99.6 108 18 134/87 89 05/14/17 08:47 93 Nasal Cannula 4.00 05/14/17 07:51 102 05/14/17 04:00 99.0 102 22 133/86 93 05/14/17 01:56 98.6 116 95 05/14/17 00:00 100.8 100 20 130/72 93 05/13/17 23:26 91 4.00 05/13/17 22:03 22 94 05/13/17 21:58 76 94 05/13/17 21:50 94 Nasal Cannula 4.00 05/13/17 21:35 100.2 102 22 103/57 87 05/13/17 21:35 100.3 102 22 103/59 87 05/13/17 20:23 92 Nasal Cannula 3.00 05/13/17 20:04 96 05/13/17 20:00 98.1 99 19 103/62 94 05/13/17 17:08 99.0 118 20 134/82 91 05/13/17 16:00 99.5 105 20 123/78 92 05/13/17 13:15 98.0 124 20 120/58 93 05/14/17 05/14/17 05/14/17 07:00 15:00 23:00 Intake Total 912 ml Output Total 395 ml Balance 517 ml Result Diagram: 05/14/1762005/14/17620 Laboratory Results Laboratory Tests Test 05/14/17 06:21 White Blood Count 5.1 TH/MM3 Red Blood Count 2.42 MIL/MM3 Hemoglobin 8.2 GM/DL Hematocrit 23.0 % Mean Corpuscular Volume 94.9 FL Mean Corpuscular Hemoglobin 33.8 PG Mean Corpuscular Hemoglobin 35.6 % Concent Red Cell Distribution Width 23.5 % Platelet Count 68 TH/MM3 Mean Platelet Volume 7.3 FL Neutrophils (%) (Auto) % Lymphocytes (%) (Auto) % Monocytes (%) (Auto) % Eosinophils (%) (Auto) % Basophils (%) (Auto) % Neutrophils # (Auto) TH/MM3 Lymphocytes # (Auto) TH/MM3 Monocytes # (Auto) TH/MM3 Eosinophils # (Auto) TH/MM3 Basophils # (Auto) TH/MM3 CBC Comment AUTO DIFF Differential Total Cells 100 Counted Neutrophils % (Manual) 3 % Lymphocytes % 38 % Monocytes % 57 % Neutrophils # (Manual) 0.2 TH/MM3 Differential Comment FINAL DIFF MANUAL Blastocytes 2 % Platelet Estimate LOW Platelet Morphology Comment NORMAL Prothrombin Time 15.1 SEC Prothromb Time International 1.3 RATIO Ratio Activated Partial 41.9 SEC Thromboplast Time Sodium Level 140 MEQ/L Potassium Level 3.6 MEQ/L Chloride Level 107 MEQ/L Carbon Dioxide Level 22.3 MEQ/L Anion Gap 11 MEQ/L Blood Urea Nitrogen 20 MG/DL Creatinine 0.85 MG/DL Estimat Glomerular Filtration 90 ML/MIN Rate Random Glucose 108 MG/DL Calcium Level 8.0 MG/DL Total Bilirubin 2.7 MG/DL Direct Bilirubin 1.1 MG/DL Indirect Bilirubin 1.6 MG/DL Aspartate Amino Transf 18 U/L (AST/SGOT) Alanine Aminotransferase 12 U/L (ALT/SGPT) Alkaline Phosphatase 72 U/L Total Protein 6.4 GM/DL Albumin 2.6 GM/DL Culture Results Microbiology Date/Time Procedure Status Source Growth 05/12/17 16:00 Aerobic Blood Culture - Preliminary Resulted Blood Peripheral NO GROWTH IN 2 DAYS 05/12/17 16:00 Anaerobic Blood Culture - Preliminary Resulted Blood Peripheral NO GROWTH IN 2 DAYS 05/12/17 16:05 Aerobic Blood Culture - Preliminary Resulted Blood Peripheral NO GROWTH IN 2 DAYS 05/12/17 16:05 Anaerobic Blood Culture - Preliminary Resulted Blood Peripheral NO GROWTH IN 2 DAYS 05/14/17 06:11 Aerobic Blood Culture Received Blood Peripheral Pending 05/14/17 06:11 Anaerobic Blood Culture Received Blood Peripheral Pending 05/14/17 06:21 Aerobic Blood Culture Received Blood Peripheral Pending 05/14/17 06:21 Anaerobic Blood Culture Received Blood Peripheral Pending Administered Medications Medications (Trade) Dose Ordered Sig/Maritza Route PRN Reason Start Time Stop Time Status Last Admin Dose Admin Sodium Chloride (NS Flush) 2 ml BID IV FLUSH 05/10/17 21:00 05/13/17 16:53 Acetaminophen (Tylenol) 650 mg Q4H PRN PO TEMP > 100.4 05/10/17 15:00 05/13/17 23:18 Senna/Docusate Sodium (Cinthia-Colace) 1 tab BID PO 05/10/17 21:00 05/13/17 20:09 Amlodipine Besylate (Norvasc) 5 mg DAILY PO 05/11/17 09:00 Hold 05/14/17 10:17 Atorvastatin Calcium (Lipitor) 20 mg DAILY PO 05/11/17 09:00 05/14/17 10:17 Lisinopril 20 mg 20 mg DAILY PO 05/11/17 09:00 05/14/17 10:17 Cefepime HCl/ Sodium Chloride (Maxipime Inj/NS Inj) 100 ml @ 200 mls/hr Q12H IV 05/11/17 08:00 05/14/17 10:15 Oxycodone HCl 5 mg 5 mg Q4H PRN PO PAIN SCALE 3 TO 5 05/11/17 12:00 05/12/17 01:23 Vancomycin HCl/ Sodium Chloride (Vancomycin Inj/ NS 500 ml Inj) 515 ml @ 250 mls/hr Q12H IV 05/13/17 12:00 05/13/17 23:19 Objective Remarks GENERAL: Middle aged male, upright in bed in nad. sleeping on approach. SKIN: Warm and dry. HEAD: Normocephalic. EYES: No injection or drainage. NECK: Supple, trachea midline CARDIOVASCULAR: tachycardic rate, regular rhythm. RESPIRATORY: Breath sounds equal bilaterally. No accessory muscle use. GASTROINTESTINAL: Abdomen soft, non-tender, nondistended. EXTREMITIES: No cyanosis NEUROLOGICAL: awake and alert, normal speech. moving all extremities. Assessment/Plan Problem List: (1) Acute myelomonocytic leukemia Status: Acute Plan: --flow cytometry indicates acute myelomonocytic leukemia --plan to place jang catheter and start 7+3 chemotherapy AFTER echo returns tomorrow (2) Neutropenic fever Status: Acute Plan: --ID following --on Vanco, Cefepime --CXR shows diffuse parenchymal opacities. (3) Hyperbilirubinemia Status: Acute Plan: --combination of direct and indirect elevated. --unclear etiology --will obtain hepatitis panel, monitor --may need liver u/s, as well. Assessment 66y/o male with newly diagnosed AML. Plan 1. Jang catheter placement this morning 2. 2D echo 3. depending on echo results, plan to start chemotherapy this afternoon 4. continue abx per ID 5. monitor CBC Attending Statement The exam, history, and the medical decision-making described in the above note were completed with the assistance of the mid-level provider. I reviewed and agree with the findings presented. I attest that I had a [id number] encounter with the patient on the same day, and personally performed and documented my assessment and findings in the medical record. Pt seen and examined. Acute leukemia confirmed. Discussed with pathology review smear, no underlying dysplasia appreciated. BM biopsy should be resulted tomorrow. Cytogenetics still pending. Pt developing complications from Pancytopenia. Discussed plan for induction to treat underlying leukemia. Anticipate starting chemo tomorrow. Jang catheter placed today. EcHO with NL EF. Consult cardiology for support. Problem Qualifiers (1) Acute myelomonocytic leukemia: Qualified Code: C92.50 - Acute myelomonocytic leukemia not having achieved remission Nettie Lutz May 14, 2017 12:15 Neva Palmer MD May 14, 2017 23:17
[2017-05-14] MEDS ORDERED: METOPROLOL TARTRATE 25 MG TAB PO ONE (12:30)
[2017-05-14] MEDS: VANCOMYCIN INJ 1,500 MG in SODIUM CHLORID 0.9% 500 ML INJ 500 ML IV SCH (12:41)
--- NOTE | 2017-05-14 13:22 | RADRPT ---
EXAM DATE/TIME: 05/14/2017 12:22 [facility] COMPARISON: CHEST SINGLE AP, May 12, 2017, 14:53. INDICATIONS : Short of breath. MEDICAL HISTORY : Diabetes mellitus type II. Hypercholesterolemia. Hypertension. Arthritis. Afib. Hyperlipidemia SURGICAL HISTORY : Appendectomy. hernia repair ENCOUNTER: Subsequent ACUITY: 1 week PAIN SCORE: 0/10 LOCATION: Bilateral chest FINDINGS: There is diffuse bilateral interstitial and alveolar opacity which may be developing edema. Cardiac c ontours are grossly stable. Lung volumes are symmetrically diminished. CONCLUSION: Diffuse parenchymal opacities. Emerson Carrasquillo MD on May 14, 2017 at 13:18 Board Certified Radiologist. This report was verified electronically.
[2017-05-14] MEDS ORDERED: MIDAZOLAM HCL 2 MG/2 ML VIAL ONE (13:37)
[2017-05-14] MEDS ORDERED: LIDOCAINE 1%/EPINEPHrine 1:100,000 SOLN 20 ML VIAL ONE (14:00)
--- NOTE | 2017-05-14 14:40 | PD.RAD ---
Post Procedure Progress Note Pre Procedure Diagnosis: (1) Acute myelomonocytic leukemia Post Procedure Diagnosis: (1) Acute myelomonocytic leukemia Procedure Date: May 14, 2017 Supervising Radiologist: Parker Dempsey Proceduralist/Assist: Daria Russo, RT(R)(CV), RT [place](R)() Anesthesia: Conscious Sedation Plan of Activity Patient to Unit: Nursing Unit Patient Condition: Good See PACS Report for procedural detail/treatment Parker Dempsey MD May 14, 2017 14:40
--- NOTE | 2017-05-14 15:38 | RADRPT ---
EXAM DATE/TIME: 05/14/2017 14:14 [facility] COMPARISON: No previous studies available for comparison. INDICATIONS : Patient is in need of placement of a tunneled central venous catheter for chemotherapy and medication administration. MEDICAL HISTORY : History of leukemia, pancytopenia, anemia, chronic ear infection, HTN, AFIB, hyperlipidemia, ETOH ab use. SURGICAL HISTORY : History of tympanic tube insertion, bone marrow biopsy, tonsillectomy, hernia repair, left knee repla cement. ENCOUNTER: Initial ACUITY: 4-6 days PAIN SCORE: 0/10 FLUORO TIME: 0.3 minutes IMAGE SERIES: 0 SEDATION TIME: 20 minutes ACCESS: Right internal jugular vein SEDATION: 1.) 2 mg midazolam (Versed) IV 2.) 100 mcg fentanyl (Sublimaze) IV Prophylactic antibiotics were administered with appropriate pre-procedure timing. Vancomycin within 2 hours of procedure, Ancef (or alternative) within 1 hour of procedure. DEVICE: 1. dual lumen Jang catheter 9Fr PROCEDURE : 1. Ultrasound-guided puncture of the prescribed vein. 2. Fluoroscopic guidance. 3. Jang catheter placement 4. Conscious sedation with continuous EKG and oximetry monitoring. The risks, benefits and alternatives to the procedure were explained and verbal and written consent w as obtained. The site was prepped in sterile fashion. Full sterile technique was used, including ca p, mask, sterile gloves and gown and a large sterile sheet. Hand hygiene and 2% chlorhexidine Betadi ne was utilized per protocol for cutaneous antisepsis with appropriate dry time for site. The skin a nd subcutaneous tissues were infiltrated with local anesthetic solution. With ultrasound and fluoroscopic guidance a dermatotomy was created in the supraclavicular region. A micropuncture set was used to access to the prescribed vein and serial dilatation was performed to a ccept a Jang catheter. A subcutaneous tunnel was created and in antegrade fashion the catheter wa s pulled through the tunnel, cut to the appropriate length and place through the sheath. The cathete r was locked with heparin and sutured in place. Conscious sedation was performed with the prescribed dosages and duration as above in the presence of an independent trained radiology nurse to assist in the monitoring of the patient. EKG and oximetry remained stable throughout the procedure. The patient tolerated the procedure well and there were no complications. The patient was sent to post anesthesia recovery in stable condition. CONCLUSION: Uncomplicated Jang catheter placement as above. Parker Bozorgmanesh, MD on May 14, 2017 at 15:35 Board Certified Radiologist. This report was verified electronically.
--- NOTE | 2017-05-14 18:02 | ECHRPT ---
Indication: Shortness of breath CONCLUSIONS The left ventricular systolic function is normal with an estimated ejection fraction in the range of 55-60%. Wall thickness is measured at the upper limits of normal. The right ventricle is mildly dilated. Mild mitral valve regurgitation. There is trace tricuspid valve regurgitation. BP: 133 / 86 HR: 102 Rhythm: Other MEASUREMENTS (Male / Female) Normal Values Technical Quality:Good 2D ECHO LV Diastolic Diameter PLAX 4.9 cm 4.2 - 5.9 / 3.9 - 5.3 cm LV Systolic Diameter PLAX 4.0 cm IVS Diastolic Thickness 1.0 cm 0.6 - 1.0 / 0.6 - 0.9 cm LVPW Diastolic Thickness 1.0 cm 0.6 - 1.0 / 0.6 - 0.9 cm LV Relative Wall Thickness 0.4 RV Internal Dim ED PLAX 3.2 cm LVOT Diameter 2.0 cm M-MODE Aortic Root Diameter MM 3.8 cm LA Systolic Diameter MM 4.2 cm LA Ao Ratio MM 1.1 AV Cusp Separation MM 1.8 cm DOPPLER AV Peak Velocity 163.0 cm/s AV Peak Gradient 10.6 mmHg AI Peak Velocity 322.5 cm/s AI Peak Gradient 41.6 mmHg AI Pressure Half Time 778.0 ms LVOT Peak Velocity 105.0 cm/s LVOT Peak Gradient 4.4 mmHg AV Area Cont Eq pk 2.0 cm MR Peak Velocity 381.0 cm/s MR Peak Gradient 58.1 mmHg TR Peak Velocity 341.0 cm/s TR Peak Gradient 46.5 mmHg PV Peak Velocity 99.1 cm/s PV Peak Gradient 3.9 mmHg FINDINGS LEFT VENTRICLE The left ventricular systolic function is normal with an estimated ejection fraction in the range of 55-60%. Wall thickness is measured at the upper limits of normal. Normal left ventricular size. RIGHT VENTRICLE The right ventricle is mildly dilated. LEFT ATRIUM The left atrial size is mildly dilated. RIGHT ATRIUM The right atrial size is normal. ATRIAL SEPTUM The interatrial septum not well visualized. AORTA The aortic root and proximal ascending aorta are normal in size on limited imaging. MITRAL VALVE Structurally normal mitral valve. Mild mitral valve regurgitation. AORTIC VALVE Aortic valve sclerosis is present. Mild thickening of the aortic valve leaflets. Trace aortic valve regurgitation. No aortic valve stenosis. TRICUSPID VALVE Structurally normal tricuspid valve. There is trace tricuspid valve regurgitation. PULMONARY VALVE The pulmonary valve is not well visualized. VESSELS The inferior vena cava is normal in size. PERICARDIUM No pericardial effusion. Keaton Genao DO (Electronically Signed) Final Date:14 May 2017 18:01
[2017-05-14] MEDS: SODIUM CHLORIDE 0.9% FLUSH 10 ML FLUSH IV FLUSH PRN (21:54)
[2017-05-14] MEDS ORDERED: SODIUM CHLORIDE 0.9% FLUSH 10 ML FLUSH IV FLUSH PRN ×2 (23:30)
[2017-05-15] VITALS (11 sets, daily range): BP systolic 111–148; BP diastolic 55–86; PULSE 76–124; RESP 16–28; TEMP 96.4–100.4; O2SAT 93–95
[2017-05-15] MEDS: SODIUM CHLORIDE 0.9% FLUSH 10 ML FLUSH IV FLUSH PRN ×2 (00:07→03:47)
[2017-05-15] MEDS: VANCOMYCIN INJ 1,500 MG in SODIUM CHLORID 0.9% 500 ML INJ 500 ML IV SCH ×2 (00:08→13:18)
[2017-05-15 06:27] LABS: HEMATOCRIT 22.1 % (39.0-51.0); MEAN CELL VOLUME 96.2 FL (80.0-100.0); MEAN CORPUSCULAR HEMOGLOBIN 33.3 PG (27.0-34.0); MEAN CORPUSCULAR HGB CONC 34.7 % (32.0-36.0); PLATELET COUNT 64 TH/MM3 (150-450); RED CELL DISTRIBUTION WIDTH 23.3 % (11.6-17.2); WHITE BLOOD COUNT 4.2 TH/MM3 (4.0-11.0)
[2017-05-15 06:34] LABS: HEMO FLAGS AUTO DIFF
[2017-05-15 06:48] LABS: ANION GAP 8 MEQ/L (5-15); AST (GOT) 16 U/L (15-37); BICARBONATE 24.9 MEQ/L (21.0-32.0); BLOOD UREA NITROGEN 20 MG/DL (7-18); CHLORIDE 108 MEQ/L (98-107); GLOMERULAR FILTRATION RATE 110 ML/MIN (>89); POTASSIUM 3.5 MEQ/L (3.5-5.1); SODIUM (NA) 141 MEQ/L (136-145)
[2017-05-15 06:51] LABS: ALKALINE PHOSPHATASE 75 U/L (45-117); ALT (GPT) 12 U/L (12-78); TOTAL BILIRUBIN ADULT 1.8 MG/DL (0.2-1.0)
[2017-05-15] MEDS: LISINOPRIL 20 MG TAB PO SCH (08:30)
[2017-05-15] MEDS: DOCUSATE SODIUM 50 MG/SENNA 8.6 MG TAB PO SCH ×2 (08:30→20:58)
[2017-05-15] MEDS: ATORVASTATIN 20 MG TAB PO SCH (08:30)
[2017-05-15] MEDS: METOPROLOL TARTRATE 50 MG TAB PO SCH ×2 (08:30→21:01)
[2017-05-15] MEDS: CEFEPIME INJ 2,000 MG in SODIUM CHLORIDE 0.9% INJ 100 ML IV SCH ×2 (08:30→20:58)
[2017-05-15] MEDS: SODIUM CHLORIDE 0.9% FLUSH 10 ML FLUSH IV FLUSH SCH ×2 (08:31→21:02)
[2017-05-15] MEDS: Hickman Catheter Daily NS Lock Flush IV FLUSH SCH (08:31)
--- NOTE | 2017-05-15 08:38 | EKG ---
Date Performed: 05/13/2017 Time Performed: 14:09:33 PTAGE: 66 years EKG: ATRIAL FIBRILLATION WITH RAPID VENTRICULAR RESPONSE ST DEVIATION AND MODERATE T-WAVE ABNORM ALITY, CONSIDER LATERAL ISCHEMIA ST DEVIATION AND MODERATE T-WAVE ABNORMALITY, CONSIDER INFERIOR ISCH EMIA ABNORMAL ECG PREVIOUS TRACING : 08/09/2015 07.49 DOCTOR: German Lawson Interpretating Date/Time 05/15/2017 08:35:40
[2017-05-15 08:58] LABS: BASOPHILS 1 % (0-2); BLASTS 4 % (0-0); METAMYELOCYTES 1 % (0-1); PLATELET ESTIMATE SMEAR LOW (NORMAL); PLATELET MORPHOLOGY NORMAL (NORMAL); SCAN/DIFF FINAL DIFF MANUAL; WBC DIFF SAMPLE 100
[2017-05-15 09:00] LABS: OVALOCYTES 1+ (NORMAL)
--- NOTE | 2017-05-15 11:04 | PD.ONC.PN ---
Subjective Subjective Remarks Tmax 100.4 overnight. Patient resting comfortably in bed. + cough productive of mucous. Objective Data Date Time Temp Pulse Resp B/P Pulse Ox O2 Delivery O2 Flow Rate FiO2 05/15/17 09:39 94 Nasal Cannula 4.00 05/15/17 08:00 96.4 110 28 120/68 95 05/15/17 07:19 100 05/15/17 03:56 100.4 100 22 144/77 93 05/15/17 03:37 94 Nasal Cannula 4.00 05/15/17 00:00 97.6 93 18 148/67 93 05/14/17 22:00 Nasal Cannula 4.00 05/14/17 20:18 92 05/14/17 20:07 96.9 106 20 135/73 94 05/14/17 16:00 97.3 110 24 141/94 92 05/14/17 16:00 97.3 110 20 141/94 92 05/14/17 15:25 107 18 128/78 94 05/14/17 14:55 105 18 136/76 91 05/14/17 14:40 99.5 101 16 130/78 90 05/14/17 13:00 97.2 65 20 176/82 93 05/15/17 05/15/17 05/15/17 07:00 15:00 23:00 Intake Total 855 ml Output Total 400 ml Balance 455 ml Result Diagram: 05/15/17 0355 05/15/17 0355 Laboratory Results Laboratory Tests Test 05/15/17 03:55 White Blood Count 4.2 TH/MM3 Red Blood Count 2.30 MIL/MM3 Hemoglobin 7.7 GM/DL Hematocrit 22.1 % Mean Corpuscular Volume 96.2 FL Mean Corpuscular Hemoglobin 33.3 PG Mean Corpuscular Hemoglobin 34.7 % Concent Red Cell Distribution Width 23.3 % Platelet Count 64 TH/MM3 Mean Platelet Volume 7.6 FL Neutrophils (%) (Auto) % Lymphocytes (%) (Auto) % Monocytes (%) (Auto) % Eosinophils (%) (Auto) % Basophils (%) (Auto) % Neutrophils # (Auto) TH/MM3 Lymphocytes # (Auto) TH/MM3 Monocytes # (Auto) TH/MM3 Eosinophils # (Auto) TH/MM3 Basophils # (Auto) TH/MM3 CBC Comment AUTO DIFF Differential Total Cells 100 Counted Lymphocytes % 26 % Monocytes % 68 % Basophils % 1 % Neutrophils # (Manual) 0.0 TH/MM3 Metamyelocytes 1 % Differential Comment FINAL DIFF MANUAL Blastocytes 4 % Platelet Estimate LOW Platelet Morphology Comment NORMAL Ovalocytes 1+ Sodium Level 141 MEQ/L Potassium Level 3.5 MEQ/L Chloride Level 108 MEQ/L Carbon Dioxide Level 24.9 MEQ/L Anion Gap 8 MEQ/L Blood Urea Nitrogen 20 MG/DL Creatinine 0.72 MG/DL Estimat Glomerular Filtration 110 ML/MIN Rate Random Glucose 98 MG/DL Calcium Level 7.6 MG/DL Total Bilirubin 1.8 MG/DL Aspartate Amino Transf 16 U/L (AST/SGOT) Alanine Aminotransferase 12 U/L (ALT/SGPT) Alkaline Phosphatase 75 U/L Total Protein 6.5 GM/DL Albumin 2.6 GM/DL Culture Results Microbiology Date/Time Procedure Status Source Growth 05/12/17 16:00 Aerobic Blood Culture - Preliminary Resulted Blood Peripheral NO GROWTH IN 2 DAYS 05/12/17 16:00 Anaerobic Blood Culture - Preliminary Resulted Blood Peripheral NO GROWTH IN 2 DAYS 05/12/17 16:05 Aerobic Blood Culture - Preliminary Resulted Blood Peripheral NO GROWTH IN 2 DAYS 05/12/17 16:05 Anaerobic Blood Culture - Preliminary Resulted Blood Peripheral NO GROWTH IN 2 DAYS 05/14/17 06:11 Aerobic Blood Culture Received Blood Peripheral Pending 05/14/17 06:11 Anaerobic Blood Culture Received Blood Peripheral Pending 05/14/17 06:21 Aerobic Blood Culture Received Blood Peripheral Pending 05/14/17 06:21 Anaerobic Blood Culture Received Blood Peripheral Pending Administered Medications Medications (Trade) Dose Ordered Sig/Maritza Route PRN Reason Start Time Stop Time Status Last Admin Dose Admin Sodium Chloride (NS Flush) 2 ml UNSCH PRN IV FLUSH FLUSH AFTER USING IV ACCESS 05/10/17 15:00 05/15/17 03:47 Sodium Chloride (NS Flush) 2 ml BID IV FLUSH 05/10/17 21:00 05/15/17 08:31 Acetaminophen (Tylenol) 650 mg Q4H PRN PO TEMP > 100.4 05/10/17 15:00 05/13/17 23:18 Senna/Docusate Sodium (Cinthia-Colace) 1 tab BID PO 05/10/17 21:00 05/15/17 08:30 Amlodipine Besylate (Norvasc) 5 mg DAILY PO 05/11/17 09:00 Hold 05/14/17 10:17 Atorvastatin Calcium (Lipitor) 20 mg DAILY PO 05/11/17 09:00 05/15/17 08:30 Lisinopril 20 mg 20 mg DAILY PO 05/11/17 09:00 05/15/17 08:30 Cefepime HCl/ Sodium Chloride (Maxipime Inj/NS Inj) 100 ml @ 200 mls/hr Q12H IV 05/11/17 08:00 05/15/17 08:30 Oxycodone HCl 5 mg 5 mg Q4H PRN PO PAIN SCALE 3 TO 5 05/11/17 12:00 05/12/17 01:23 Vancomycin HCl/ Sodium Chloride (Vancomycin Inj/ NS 500 ml Inj) 515 ml @ 250 mls/hr Q12H IV 05/13/17 12:00 05/15/17 00:08 Metoprolol Tartrate (Lopressor) 75 mg BID PO 05/14/17 21:00 05/15/17 08:30 Sodium Chloride (NS Flush) 5 ml DAILY IV FLUSH 05/15/17 09:00 05/15/17 08:31 Sodium Chloride (NS Flush) 5 ml UNSCH PRN IV FLUSH SEE PROTOCOL TABLE 05/14/17 23:30 05/15/17 03:47 Heparin Sodium (Porcine) (Heparin Central Flush) 500 units UNSCH PRN IV FLUSH SEE PROTOCOL TABLE 05/14/17 23:30 05/15/17 03:47 Objective Remarks GENERAL: Middle aged male, supine in bed, appears fatigued. On 4.5L O2 via NC. SKIN: Warm and dry. HEAD: Normocephalic. EYES: No injection or drainage. NECK: Supple, trachea midline. CARDIOVASCULAR: Regular rate and rhythm RESPIRATORY: diminished at bases. scattered rhonchi. GASTROINTESTINAL: Abdomen soft, non-tender, nondistended. EXTREMITIES: No cyanosis NEUROLOGICAL: awake and alert, normal speech. moving all extremities. Assessment/Plan Problem List: (1) Acute myelomonocytic leukemia Status: Acute Plan: --flow cytometry indicates acute myelomonocytic leukemia --s/p jang catheter placement 05/14: Jang catheter placement and echo--EF=55-60% 05/15/15: Day 1 Induction chemotherapy with SHABANA-C/Idarubicin (2) Neutropenic fever Status: Acute Plan: --ID following --on Vanco, Cefepime --CXR shows diffuse parenchymal opacities. --BC no growth (3) Hyperbilirubinemia Status: Acute Plan: --combination of direct and indirect elevated. --unclear etiology --will obtain hepatitis panel, monitor Assessment 66y/o male with newly diagnosed AML. Plan 1. start induction chemotherapy today 2. monitor blood counts 3. continue antibiotics. Attending Statement The exam, history, and the medical decision-making described in the above note were completed with the assistance of the mid-level provider. I reviewed and agree with the findings presented. I attest that I had a [id number] encounter with the patient on the same day, and personally performed and documented my assessment and findings in the medical record. Pt seen and examined. Friends at bedside lending encouragement and support. Started chemo therapy. Monitor closely tolerating fluid volume, plan to decrease tomorrow. Induction chemo discussed, residential and short term goals. Questions answered. Risks and benefits discussed. Problem Qualifiers (1) Acute myelomonocytic leukemia: Qualified Code: C92.50 - Acute myelomonocytic leukemia not having achieved remission Nettie Lutz May 15, 2017 11:04 Neva Palmer MD May 15, 2017 20:32
[2017-05-15] MEDS ORDERED: PHARMACY ORDERED LAB ONE (11:45)
--- NOTE | 2017-05-15 12:37 | HHI.PR ---
Subjective Remarks The patient was sitting up in a chair. He said his breathing was hard. Otherwise no acute complaints. Has been having bowel movements. Objective Vitals Vital Signs Date Time Temp Pulse Resp B/P Pulse Ox O2 Delivery O2 Flow Rate FiO2 05/15/17 11:58 97.6 96 24 135/81 94 05/15/17 09:39 94 Nasal Cannula 4.00 05/15/17 08:00 96.4 110 28 120/68 95 05/15/17 07:19 100 05/15/17 03:56 100.4 100 22 144/77 93 05/15/17 03:37 94 Nasal Cannula 4.00 05/15/17 00:00 97.6 93 18 148/67 93 05/14/17 22:00 Nasal Cannula 4.00 05/14/17 20:18 92 05/14/17 20:07 96.9 106 20 135/73 94 05/14/17 16:00 97.3 110 24 141/94 92 05/14/17 16:00 97.3 110 20 141/94 92 05/14/17 15:25 107 18 128/78 94 05/14/17 14:55 105 18 136/76 91 05/14/17 14:40 99.5 101 16 130/78 90 05/14/17 13:00 97.2 65 20 176/82 93 I/O 05/14/17 05/14/17 05/14/17 05/15/17 05/15/17 05/15/17 07:00 15:00 23:00 07:00 15:00 23:00 Intake Total 912 ml 0 ml 1390 ml 855 ml Output Total 395 ml 850 ml 400 ml 400 ml Balance 517 ml -850 ml 990 ml 455 ml Intake Oral 0 ml 300 ml IV Total 912 ml 1390 ml 555 ml Output Urine Total 395 ml 850 ml 400 ml 400 ml Result Diagram: 05/15/17 0355 05/15/17 0355 Imaging Last Impressions Chest X-Ray 05/14/17 0000 Signed Impressions: Service Date/Time: Sunday, May 14, 2017 12:22 - CONCLUSION: Diffuse parenchymal opacities. Emerson Carrasquillo MD Catheter Placement X-Ray 05/14/17 0000 Signed Impressions: Service Date/Time: Sunday, May 14, 2017 14:14 - CONCLUSION: Uncomplicated Jang catheter placement as above. Parker Dempsey MD Bone Biopsy CT 05/11/17 1309 Signed Impressions: Service Date/Time: Thursday, May 11, 2017 15:10 - CONCLUSION: 1. Uncomplicated CT guided bone marrow aspirate. 2. Uncomplicated CT guided bone marrow biopsy. Ryan Hoover MD FACR Soft Tissue Ultrasound 05/11/17 0000 Signed Impressions: Service Date/Time: Thursday, May 11, 2017 08:27 - CONCLUSION: Negative for abscess. Edematous changes in the soft tissues of the left axilla. Hank Nixon MD Objective Remarks GENERAL: This is a well-nourished, well-developed patient, in no apparent distress. EYES: Extraocular motions intact. No scleral icterus. No injection or drainage. ENT: Nose without drainage. NECK: Trachea midline. CARDIOVASCULAR: Irregularly irregular. RESPIRATORY: Clear to auscultation. Breath sounds equal bilaterally. No wheezes. GASTROINTESTINAL: Abdomen soft, non-tender, nondistended. No palpable masses. No guarding. MUSCULOSKELETAL: Extremities without edema. No joint tenderness, effusion, or edema noted. Left axilla with area of induration under axilla, no pus or drainage, some erythema noted, tender to palpation. NEUROLOGICAL: Awake and alert. Cranial nerves II through XII intact. Motor and sensory grossly within normal limits. Normal speech. Heart of hearing, reads lips. PSYCH: Mood and affect appropriate. Medications and IVs Current Medications Medications (Trade) Dose Ordered Sig/Maritza Route Start Time Stop Time Status Last Admin (NS Flush) 2 ml UNSCH PRN IV FLUSH 05/10/17 15:00 05/15/17 03:47 (NS Flush) 2 ml BID IV FLUSH 05/10/17 21:00 05/15/17 08:31 (Tylenol) 650 mg Q4H PRN PO 05/10/17 15:00 05/13/17 23:18 (Zofran Inj) 4 mg Q6H PRN IVP 05/10/17 15:00 (Cinthia-Colace) 1 tab BID PO 05/10/17 21:00 05/15/17 08:30 (Milk Of Magnesia Liq) 30 ml Q12H PRN PO 05/10/17 15:00 (Senokot) 17.2 mg Q12H PRN PO 05/10/17 15:00 (Dulcolax Supp) 10 mg DAILY PRN RECTAL 05/10/17 15:00 (Lactulose Liq) 30 ml DAILY PRN PO 05/10/17 15:00 (Norvasc) 5 mg DAILY PO 05/11/17 09:00 Hold 05/14/17 10:17 (Lipitor) 20 mg DAILY PO 05/11/17 09:00 05/15/17 08:30 Lisinopril 20 mg 20 mg DAILY PO 05/11/17 09:00 05/15/17 08:30 (Maxipime Inj/NS Inj) 100 ml @ 200 mls/hr Q12H IV 05/11/17 08:00 05/15/17 08:30 (Roxicodone) 5 mg Q4H PRN PO 05/11/17 12:00 05/12/17 01:23 Oxycodone HCl 10 mg 10 mg Q6H PRN PO 05/11/17 12:00 Pharmacy Profile Note 0 ml @ 0 mls/hr UNSCH OTHER 05/13/17 08:45 (Vancomycin Inj/ NS 500 ml Inj) 515 ml @ 250 mls/hr Q12H IV 05/13/17 12:00 05/15/17 00:08 (Lopressor) 75 mg BID PO 05/14/17 21:00 05/15/17 08:30 (Pill Splitter) 1 ea UNSCH PRN OTHER 05/14/17 12:15 (NS Flush) 5 ml DAILY IV FLUSH 05/15/17 09:00 05/15/17 08:31 (Heparin Central Flush) 500 units DAILY IV FLUSH 05/15/17 09:00 (NS Flush) 5 ml UNSCH PRN IV FLUSH 05/14/17 23:30 05/15/17 03:47 (Heparin Central Flush) 500 units UNSCH PRN IV FLUSH 05/14/17 23:30 05/15/17 03:47 (NS Flush) 5 ml UNSCH PRN IV FLUSH 05/14/17 23:30 (Kytril Inj) 1 mg DAILY IV 05/15/17 12:30 05/21/17 09:01 Dexamethasone Sodium Phosphate 20 mg 20 mg DAILY IV 05/15/17 12:30 05/21/17 09:01 Idarubicin HCl 28.92 mg/Sodium Chloride 128.92 ml @ 386.76 mls/hr Q24H IV 05/15/17 13:00 05/17/17 13:19 Cytarabine 241 mg/ Sodium Chloride 500 ml @ 20.833 mls/ hr Q24H IV 05/15/17 14:00 05/22/17 13:59 (NS 1000 ml Inj) 1,000 ml @ 75 mls/hr [id number] IV 05/15/17 12:00 A/P Problem List: (1) Pancytopenia ICD Code: D61.818 Status: Acute (2) Macrocytic anemia ICD Code: D53.9 Status: Acute (3) Alcohol abuse ICD Code: F10.10 Status: Acute (4) S/P tympanic tube insertion ICD Code: Z96.22 Status: Acute Assessment and Plan Pancytopenia Medical oncology following, suspecting myeloproliferative neoplasm/CMML. HIV negative. S/p bone marrow biopsy. B12 level normal. - follow pathology. - follow CBC and transfuse per hematology. - thiamine level pending. - chemotherapy started 05/14. Neutropenic fever/ Left axillary cellulitis US axilla negative for abscess. CXR and UA unremarkable. ID consult appreciated. Repeat chest x-ray with diffuse parenchymal opacities. - continue IV vancomycin and cefepime. - follow up with ID. Acute respiratory failure Pneumonia noted on x-ray. On 4L NC. Echo with normal EF. - oxygen and nebs as needed. - Antibiotics as above. - Diuresis if needed. HTN Currently stable. - continue home medications lisinopril, and metoprolol. Amlodipine on hold as Lopressor is being uptitrated. Afib Rate elevated at times. Exacerbated by infection. - Monitor tele. - Hold Eliquis for now due to pancytopenia. - increased Lopressor to 75 mg BID. Increase as needed. Ear pain S/p tympanic tube placement by ENT for chronic ear infection. - continue antibiotics. - outpt follow up. Alcohol abuse Chronic. - Withdrawal precautions: sz and fall precaution in place. - Encouraged to quit. - on CIWA protocol if needed. PPx: SCDs Discharge Planning Awaiting clinical improvement Braxton Carbajal DO May 15, 2017 12:37
--- NOTE | 2017-05-15 14:04 | HHI.IDPN ---
Subjective Subjective Remarks 66 year old male, with newly Dx AML. Has had low grade temps. Notes reviewed Tmax 100.8 overnight C/O SOB, has dry cough No SOB CXR with new infiltrates Very [place] No N/V Antibiotics Vancomycin Cefepime Lines KAYKAY Jang Past Medical History Atrial fibrillation Hypertension Hyperlipidemia Arthritis Past Surgical History Hernia repair Tonsillectomy Left knee replacement Allergies: Coded Allergies: No Known Allergies (Unverified , 05/10/17) Objective . Vital Signs Date Time Temp Pulse Resp B/P Pulse Ox O2 Delivery O2 Flow Rate FiO2 05/15/17 11:58 97.6 96 24 135/81 94 05/15/17 09:39 94 Nasal Cannula 4.00 05/15/17 08:00 96.4 110 28 120/68 95 05/15/17 07:19 100 05/15/17 03:56 100.4 100 22 144/77 93 05/15/17 03:37 94 Nasal Cannula 4.00 05/15/17 00:00 97.6 93 18 148/67 93 05/14/17 22:00 Nasal Cannula 4.00 05/14/17 20:18 92 05/14/17 20:07 96.9 106 20 135/73 94 05/14/17 16:00 97.3 110 24 141/94 92 05/14/17 16:00 97.3 110 20 141/94 92 05/14/17 15:25 107 18 128/78 94 05/14/17 14:55 105 18 136/76 91 05/14/17 14:40 99.5 101 16 130/78 90 05/14/17 05/14/17 05/15/17 15:00 23:00 07:00 Intake Total 0 ml 1390 ml 855 ml Output Total 850 ml 400 ml 400 ml Balance -850 ml 990 ml 455 ml Intake Oral 0 ml 300 ml IV Total 1390 ml 555 ml Output Urine Total 850 ml 400 ml 400 ml . Laboratory Tests Test 05/14/17 05/15/17 06:21 03:55 White Blood Count 5.1 TH/MM3 4.2 TH/MM3 Red Blood Count 2.42 MIL/MM3 2.30 MIL/MM3 Hemoglobin 8.2 GM/DL 7.7 GM/DL Hematocrit 23.0 % 22.1 % Mean Corpuscular Volume 94.9 FL 96.2 FL Mean Corpuscular Hemoglobin 33.8 PG 33.3 PG Mean Corpuscular Hemoglobin 35.6 % 34.7 % Concent Red Cell Distribution Width 23.5 % 23.3 % Platelet Count 68 TH/MM3 64 TH/MM3 Mean Platelet Volume 7.3 FL 7.6 FL Neutrophils (%) (Auto) % % Lymphocytes (%) (Auto) % % Monocytes (%) (Auto) % % Eosinophils (%) (Auto) % % Basophils (%) (Auto) % % Neutrophils # (Auto) TH/MM3 TH/MM3 Lymphocytes # (Auto) TH/MM3 TH/MM3 Monocytes # (Auto) TH/MM3 TH/MM3 Eosinophils # (Auto) TH/MM3 TH/MM3 Basophils # (Auto) TH/MM3 TH/MM3 CBC Comment AUTO DIFF AUTO DIFF Differential Total Cells 100 100 Counted Neutrophils % (Manual) 3 % Lymphocytes % 38 % 26 % Monocytes % 57 % 68 % Neutrophils # (Manual) 0.2 TH/MM3 0.0 TH/MM3 Differential Comment FINAL DIFF FINAL DIFF MANUAL MANUAL Blastocytes 2 % 4 % Platelet Estimate LOW LOW Platelet Morphology Comment NORMAL NORMAL Haptoglobin 305 MG/DL Basophils % 1 % Metamyelocytes 1 % Ovalocytes 1+ Laboratory Tests Test 05/14/17 05/15/17 06:21 03:55 Sodium Level 140 MEQ/L 141 MEQ/L Potassium Level 3.6 MEQ/L 3.5 MEQ/L Chloride Level 107 MEQ/L 108 MEQ/L Carbon Dioxide Level 22.3 MEQ/L 24.9 MEQ/L Anion Gap 11 MEQ/L 8 MEQ/L Blood Urea Nitrogen 20 MG/DL 20 MG/DL Creatinine 0.85 MG/DL 0.72 MG/DL Estimat Glomerular Filtration 90 ML/MIN 110 ML/MIN Rate Random Glucose 108 MG/DL 98 MG/DL Calcium Level 8.0 MG/DL 7.6 MG/DL Total Bilirubin 2.7 MG/DL 1.8 MG/DL Direct Bilirubin 1.1 MG/DL Indirect Bilirubin 1.6 MG/DL Aspartate Amino Transf 18 U/L 16 U/L (AST/SGOT) Alanine Aminotransferase 12 U/L 12 U/L (ALT/SGPT) Alkaline Phosphatase 72 U/L 75 U/L Lactate Dehydrogenase 384 U/L B-Type Natriuretic Peptide 232 PG/ML Total Protein 6.4 GM/DL 6.5 GM/DL Albumin 2.6 GM/DL 2.6 GM/DL Microbiology Date/Time Procedure Status Source Growth 05/12/17 16:00 Aerobic Blood Culture - Preliminary Resulted Blood Peripheral NO GROWTH IN 3 DAYS 05/12/17 16:00 Anaerobic Blood Culture - Preliminary Resulted Blood Peripheral NO GROWTH IN 3 DAYS 05/12/17 16:05 Aerobic Blood Culture - Preliminary Resulted Blood Peripheral NO GROWTH IN 3 DAYS 05/12/17 16:05 Anaerobic Blood Culture - Preliminary Resulted Blood Peripheral NO GROWTH IN 3 DAYS 05/14/17 06:11 Aerobic Blood Culture - Preliminary Resulted Blood Peripheral NO GROWTH IN 1 DAY 05/14/17 06:11 Anaerobic Blood Culture - Preliminary Resulted Blood Peripheral NO GROWTH IN 1 DAY 05/14/17 06:21 Aerobic Blood Culture - Preliminary Resulted Blood Peripheral NO GROWTH IN 1 DAY 05/14/17 06:21 Anaerobic Blood Culture - Preliminary Resulted Blood Peripheral NO GROWTH IN 1 DAY Imaging Last Impressions Chest X-Ray 05/12/17 0000 Signed Impressions: Service Date/Time: Friday, May 12, 2017 14:53 - CONCLUSION: Mild cardiomegaly. Emerson Farias MD Bone Biopsy CT 05/11/17 1309 Signed Impressions: Service Date/Time: Thursday, May 11, 2017 15:10 - CONCLUSION: 1. Uncomplicated CT guided bone marrow aspirate. 2. Uncomplicated CT guided bone marrow biopsy. Ryan Hoover MD FACR Soft Tissue Ultrasound 05/11/17 0000 Signed Impressions: Service Date/Time: Thursday, May 11, 2017 08:27 - CONCLUSION: Negative for abscess. Edematous changes in the soft tissues of the left axilla. Hank Nixon MD Physical Exam GENERAL: awake and alert, not in respiratory distress. SKIN: Warm and dry. No generalized rash, no ecchymoses and no evidence of embolic lesions. HEAD: Atraumatic. Normocephalic. No temporal wasting, or tenderness. EYES: Pale conjunctiva. No petechia or hemorrhage. Pupils equal, round and reactive to light. Extraocular movements full and intact. No scleral icterus. No injection or drainage. EARS, NOSE AND THROAT: Nose without bleeding or purulent nasal discharge. No sinus tenderness. Mucous membranes pink and moist. No oral lesions noted. He is edentulous. No drainage R ear NECK: Trachea midline. Supple and not tender, no meningeal signs CARDIOVASCULAR: Irregular rate and rhythm. No murmurs, rubs or gallops heard RESPIRATORY: Clear to auscultation. Breath sounds equal bilaterally. No rales , wheezing or rhonchi ABDOMEN: Soft, non-tender, nondistended. Bowel sounds present and normoactive. No guarding. No rebound. No organomegaly. EXTREMITIES: No clubbing, cyanosis, or edema. No joint effusion, has good ROM. No calf tenderness. L axilla - there is an indurated area about 2 inch x 1 in size, tender, with a small area of redness almost at the center. NEUROLOGICAL: Non-focal PSYCHIATRIC: Normal affect, calm and cooperative. LINE: No evidence of infection Assessment & Plan Remarks IMPRESSION Fever, patient with newly Dx leukemia, monocytic - has possible follicultis or hidradenitis L axilla - has rubes to R ear for infection - no other obvious source Acute Monocytic leukemia, with pancytopenia New bilateral infiltrates - BNP 300+ - echo good LV function RECOMMENDATION Continue vanco and Cefepime Add Levaquin legio and pneumo Ag Sputum C/S Follow temps Follow C/S Monitor progress Susie Garcia MD May 15, 2017 14:04
[2017-05-15] MEDS ORDERED: RESP: ALBUTEROL 2.5 MG/IPRATROPIUM 0.5 MG NEB (PRN) NEB (15:00)
[2017-05-15] MEDS: SODIUM CHLOR 0.9% 1000 ML INJ 1,000 ML IV SCH (15:37)
[2017-05-15] MEDS: GRANISETRON HCL 1 MG/ML VIAL IV SCH (15:38)
[2017-05-15] MEDS: LEVOFLOXACIN 750 MG TAB PO SCH (15:38)
[2017-05-15] MEDS: DEXAMETHASONE SOD PHOS 20 MG/5 ML VIAL IV SCH (15:38)
[2017-05-15] MEDS: IDARUBICIN IV SCH (16:32)
[2017-05-15] MEDS: SODIUM CHLORIDE 0.9% IV SCH (16:32)
[2017-05-15] MEDS: CYTARABINE IV SCH (17:12)
[2017-05-15] MEDS: SODIUM CHLORID 0.9% IV SCH (17:12)
[2017-05-16] VITALS (9 sets, daily range): BP systolic 112–142; BP diastolic 58–89; PULSE 86–115; RESP 17–24; TEMP 96.3–97; O2SAT 92–97
[2017-05-16] MEDS: VANCOMYCIN INJ 1,500 MG in SODIUM CHLORID 0.9% 500 ML INJ 500 ML IV SCH ×2 (00:02→11:48)
[2017-05-16] MEDS: SODIUM CHLOR 0.9% 1000 ML INJ 1,000 ML IV SCH ×2 (05:00→10:03)
[2017-05-16 05:44] LABS: HEMATOCRIT 22.9 % (39.0-51.0); MEAN CORPUSCULAR HEMOGLOBIN 32.9 PG (27.0-34.0); MEAN CORPUSCULAR HGB CONC 33.9 % (32.0-36.0); PLATELET COUNT 58 TH/MM3 (150-450); RED BLOOD COUNT 2.36 MIL/MM3 (4.50-5.90); WHITE BLOOD COUNT 1.5 TH/MM3 (4.0-11.0)
[2017-05-16 06:07] LABS: APTT (PATIENT) 40.8 SEC (24.3-30.1); INTERNATIONAL NORMALIZED RATIO 1.2 RATIO; PROTHROMBIN TIME - PATIENT 13.7 SEC (9.8-11.6)
[2017-05-16 06:17] LABS: BICARBONATE 24.4 MEQ/L (21.0-32.0); MAGNESIUM 2.4 MG/DL (1.5-2.5); POTASSIUM 3.8 MEQ/L (3.5-5.1)
[2017-05-16 06:19] LABS: INDIRECT BILIRUBIN 0.7 MG/DL (0.0-0.8); TOTAL BILIRUBIN ADULT 1.3 MG/DL (0.2-1.0)
[2017-05-16 06:38] LABS: HEMO FLAGS AUTO DIFF
[2017-05-16] MEDS: SODIUM CHLORIDE 0.9% FLUSH 10 ML FLUSH IV FLUSH SCH ×2 (07:57→19:58)
[2017-05-16] MEDS: Hickman Catheter Daily NS Lock Flush IV FLUSH SCH (07:57)
[2017-05-16] MEDS: LEVOFLOXACIN 750 MG TAB PO SCH (08:11)
[2017-05-16] MEDS: CEFEPIME INJ 2,000 MG in SODIUM CHLORIDE 0.9% INJ 100 ML IV SCH ×2 (08:11→19:57)
[2017-05-16] MEDS: ATORVASTATIN 20 MG TAB PO SCH (08:11)
[2017-05-16] MEDS: METOPROLOL TARTRATE 50 MG TAB PO SCH ×2 (08:12→19:58)
[2017-05-16] MEDS: LISINOPRIL 20 MG TAB PO SCH (08:12)
[2017-05-16] MEDS: DOCUSATE SODIUM 50 MG/SENNA 8.6 MG TAB PO SCH ×2 (08:12→19:57)
[2017-05-16 09:00] LABS: MYELOCYTES 1 % (0-0); WBC DIFF SAMPLE 100
[2017-05-16 09:01] LABS: NEUTROPHIL # MANUAL DIFF 0.2 TH/MM3 (1.8-7.7); OVALOCYTES 1+ (NORMAL); PLATELET ESTIMATE SMEAR LOW (NORMAL); PLATELET MORPHOLOGY NORMAL (NORMAL); POLYS (SEG NEUTROPHILS) 11 % (16-70); SCAN/DIFF FINAL DIFF MANUAL
--- NOTE | 2017-05-16 10:58 | PD.ONC.PN ---
Subjective Subjective Remarks Afebrile overnight. Tolerated Day 1 of induction chemotherapy yesterday. No complaints. About to work with physical therapy. Objective Data Date Time Temp Pulse Resp B/P Pulse Ox O2 Delivery O2 Flow Rate FiO2 05/16/17 10:00 97 Nasal Cannula 4.00 05/16/17 08:17 97 Nasal Cannula 4.00 05/16/17 08:00 96.6 86 24 137/77 97 05/16/17 04:00 96.5 103 17 142/85 93 05/16/17 00:00 96.5 98 17 112/58 94 05/15/17 20:50 94 Nasal Cannula 4.00 05/15/17 20:15 124 05/15/17 20:00 97.8 113 18 121/86 93 05/15/17 17:00 97.5 112 20 145/78 94 05/15/17 15:40 98.1 95 16 132/81 95 05/15/17 15:40 95 Nasal Cannula 4.00 05/15/17 11:58 97.6 96 24 135/81 94 05/16/17 05/16/17 05/16/17 07:00 15:00 23:00 Intake Total 990 ml 1885 ml Output Total 1150 ml Balance -160 ml 1885 ml Result Diagram: 05/16/17 0500 05/16/17 0500 Laboratory Results Laboratory Tests Test 05/15/17 05/16/17 13:15 05:00 Vancomycin Level Trough 11.2 MCG/ML White Blood Count 1.5 TH/MM3 Red Blood Count 2.36 MIL/MM3 Hemoglobin 7.8 GM/DL Hematocrit 22.9 % Mean Corpuscular Volume 97.0 FL Mean Corpuscular Hemoglobin 32.9 PG Mean Corpuscular Hemoglobin 33.9 % Concent Red Cell Distribution Width 22.0 % Platelet Count 58 TH/MM3 Mean Platelet Volume 7.4 FL Neutrophils (%) (Auto) % Lymphocytes (%) (Auto) % Monocytes (%) (Auto) % Eosinophils (%) (Auto) % Basophils (%) (Auto) % Neutrophils # (Auto) TH/MM3 Lymphocytes # (Auto) TH/MM3 Monocytes # (Auto) TH/MM3 Eosinophils # (Auto) TH/MM3 Basophils # (Auto) TH/MM3 CBC Comment AUTO DIFF Differential Total Cells 100 Counted Neutrophils % (Manual) 11 % Lymphocytes % 33 % Monocytes % 55 % Neutrophils # (Manual) 0.2 TH/MM3 Myelocytes 1 % Differential Comment FINAL DIFF MANUAL Platelet Estimate LOW Platelet Morphology Comment NORMAL Ovalocytes 1+ Prothrombin Time 13.7 SEC Prothromb Time International 1.2 RATIO Ratio Activated Partial 40.8 SEC Thromboplast Time Fibrinogen 549 mg/dL Sodium Level 144 MEQ/L Potassium Level 3.8 MEQ/L Chloride Level 109 MEQ/L Carbon Dioxide Level 24.4 MEQ/L Anion Gap 11 MEQ/L Blood Urea Nitrogen 20 MG/DL Creatinine 0.71 MG/DL Estimat Glomerular Filtration 111 ML/MIN Rate Random Glucose 195 MG/DL Calcium Level 7.9 MG/DL Magnesium Level 2.4 MG/DL Total Bilirubin 1.3 MG/DL Direct Bilirubin 0.6 MG/DL Indirect Bilirubin 0.7 MG/DL Aspartate Amino Transf 20 U/L (AST/SGOT) Alanine Aminotransferase 16 U/L (ALT/SGPT) Alkaline Phosphatase 84 U/L Lactate Dehydrogenase 475 U/L Total Protein 6.8 GM/DL Albumin 2.5 GM/DL Culture Results Microbiology Date/Time Procedure Status Source Growth 05/14/17 06:11 Aerobic Blood Culture - Preliminary Resulted Blood Peripheral NO GROWTH IN 1 DAY 05/14/17 06:11 Anaerobic Blood Culture - Preliminary Resulted Blood Peripheral NO GROWTH IN 1 DAY 05/14/17 06:21 Aerobic Blood Culture - Preliminary Resulted Blood Peripheral NO GROWTH IN 1 DAY 05/14/17 06:21 Anaerobic Blood Culture - Preliminary Resulted Blood Peripheral NO GROWTH IN 1 DAY Administered Medications Medications (Trade) Dose Ordered Sig/Maritza Route PRN Reason Start Time Stop Time Status Last Admin Dose Admin Sodium Chloride (NS Flush) 2 ml UNSCH PRN IV FLUSH FLUSH AFTER USING IV ACCESS 05/10/17 15:00 05/15/17 03:47 Sodium Chloride (NS Flush) 2 ml BID IV FLUSH 05/10/17 21:00 05/15/17 21:02 Acetaminophen (Tylenol) 650 mg Q4H PRN PO TEMP > 100.4 OR PREMEDICATION FOR BLOOD PRODUCT 05/10/17 15:00 05/13/17 23:18 Senna/Docusate Sodium (Cinthia-Colace) 1 tab BID PO 05/10/17 21:00 05/15/17 20:58 Amlodipine Besylate (Norvasc) 5 mg DAILY PO 05/11/17 09:00 Hold 05/14/17 10:17 Atorvastatin Calcium (Lipitor) 20 mg DAILY PO 05/11/17 09:00 05/16/17 08:11 Lisinopril 20 mg 20 mg DAILY PO 05/11/17 09:00 05/16/17 08:12 Cefepime HCl/ Sodium Chloride (Maxipime Inj/NS Inj) 100 ml @ 200 mls/hr Q12H IV 05/11/17 08:00 05/16/17 08:11 Oxycodone HCl 5 mg 5 mg Q4H PRN PO PAIN SCALE 3 TO 5 05/11/17 12:00 05/12/17 01:23 Vancomycin HCl/ Sodium Chloride (Vancomycin Inj/ NS 500 ml Inj) 515 ml @ 250 mls/hr Q12H IV 05/13/17 12:00 05/16/17 00:02 Metoprolol Tartrate (Lopressor) 75 mg BID PO 05/14/17 21:00 05/16/17 08:12 Sodium Chloride (NS Flush) 5 ml DAILY IV FLUSH 05/15/17 09:00 05/15/17 08:31 Heparin Sodium (Porcine) (Heparin Central Flush) 500 units DAILY IV FLUSH 05/15/17 09:00 05/15/17 10:30 Sodium Chloride (NS Flush) 5 ml UNSCH PRN IV FLUSH SEE PROTOCOL TABLE 05/14/17 23:30 05/15/17 03:47 Heparin Sodium (Porcine) (Heparin Central Flush) 500 units UNSCH PRN IV FLUSH SEE PROTOCOL TABLE 05/14/17 23:30 05/15/17 03:47 Granisetron HCl (Kytril Inj) 1 mg DAILY IV 05/15/17 12:30 05/21/17 09:01 05/15/17 15:38 Dexamethasone Sodium Phosphate 20 mg 20 mg DAILY IV 05/15/17 12:30 05/21/17 09:01 05/15/17 15:38 Idarubicin HCl 28.92 mg/Sodium Chloride 128.92 ml @ 386.76 mls/hr Q24H IV 05/15/17 13:00 05/17/17 13:19 05/15/17 16:32 Cytarabine 241 mg/ Sodium Chloride 500 ml @ 20.833 mls/ hr Q24H IV 05/15/17 14:00 05/22/17 13:59 05/15/17 17:12 Sodium Chloride (NS 1000 ml Inj) 1,000 ml @ 75 mls/hr [id number] IV 05/15/17 12:00 05/16/17 10:03 Levofloxacin (Levaquin) 750 mg DAILY PO 05/15/17 14:00 05/16/17 08:11 Objective Remarks GENERAL: Middle aged male, supine in bed, appears fatigued. On 4L O2 via NC. SKIN: Warm and dry. HEAD: Normocephalic. EYES: No injection or drainage. NECK: Supple, trachea midline. CARDIOVASCULAR: Regular rate and rhythm RESPIRATORY: diminished at bases. inspiratory and expiratory wheezing GASTROINTESTINAL: Abdomen soft, non-tender, nondistended. EXTREMITIES: No cyanosis NEUROLOGICAL: aox3. normal speech. moving all extremities. Assessment/Plan Problem List: (1) Acute myelomonocytic leukemia Status: Acute Plan: --flow cytometry indicates acute myelomonocytic leukemia --s/p jang catheter placement 05/14: Jang catheter placement and echo--EF=55-60% 05/15: Day 1 Induction chemotherapy with SHABANA-C/Idarubicin 05/16: D2. no transfusion today. tolerating chemotherapy (2) Neutropenic fever Status: Acute Plan: --ID following --on Vanco, Cefepime, and Levaquin --CXR shows diffuse parenchymal opacities. --BC no growth (3) Hyperbilirubinemia Status: Acute Plan: --combination of direct and indirect elevated. --unclear etiology --will obtain hepatitis panel, monitor Assessment 66y/o male with newly diagnosed AML. Plan 1. continue induction chemotherapy today 2. monitor blood counts 3. continue antibiotics. Attending Statement The exam, history, and the medical decision-making described in the above note were completed with the assistance of the mid-level provider. I reviewed and agree with the findings presented. I attest that I had a [id number] encounter with the patient on the same day, and personally performed and documented my assessment and findings in the medical record. Pt seen and examined. Tolerating Day 2 chemo. No complaints. Explained to family at bedside "staging" in AML. Noted anemia, transfuse for symptoms. Mild tachycardia, no signs of fluid overload. Problem Qualifiers (1) Acute myelomonocytic leukemia: Qualified Code: C92.50 - Acute myelomonocytic leukemia not having achieved remission Nettie Lutz May 16, 2017 10:58 Neva Palmer MD May 17, 2017 08:37
--- NOTE | 2017-05-16 11:21 | HHI.PR ---
Subjective Remarks The patient just walked around with physical therapy. He continues to cough mucus with some blood in it. He says his breathing is stable. He denies pain. He had no acute complaints. Discussed with nursing. Objective Vitals Vital Signs Date Time Temp Pulse Resp B/P Pulse Ox O2 Delivery O2 Flow Rate FiO2 05/16/17 10:00 97 Nasal Cannula 4.00 05/16/17 08:17 97 Nasal Cannula 4.00 05/16/17 08:00 96.6 86 24 137/77 97 05/16/17 04:00 96.5 103 17 142/85 93 05/16/17 00:00 96.5 98 17 112/58 94 05/15/17 20:50 94 Nasal Cannula 4.00 05/15/17 20:15 124 05/15/17 20:00 97.8 113 18 121/86 93 05/15/17 17:00 97.5 112 20 145/78 94 05/15/17 15:40 98.1 95 16 132/81 95 05/15/17 15:40 95 Nasal Cannula 4.00 05/15/17 11:58 97.6 96 24 135/81 94 I/O 05/15/17 05/15/17 05/15/17 05/16/17 05/16/17 05/16/17 07:00 15:00 23:00 07:00 15:00 23:00 Intake Total 855 ml 720 ml 1240 ml 990 ml 1885 ml Output Total 400 ml 400 ml 300 ml 1150 ml Balance 455 ml 320 ml 940 ml -160 ml 1885 ml Intake Oral 300 ml 720 ml 480 ml 240 ml IV Total 555 ml 760 ml 750 ml 1885 ml Output Urine Total 400 ml 400 ml 300 ml 1150 ml Result Diagram: 05/16/17 0500 05/16/17 0500 Imaging Last Impressions Chest X-Ray 05/14/17 0000 Signed Impressions: Service Date/Time: Sunday, May 14, 2017 12:22 - CONCLUSION: Diffuse parenchymal opacities. Emerson Carrasquillo MD Catheter Placement X-Ray 05/14/17 0000 Signed Impressions: Service Date/Time: Sunday, May 14, 2017 14:14 - CONCLUSION: Uncomplicated Jang catheter placement as above. Parker Dempsey MD Bone Biopsy CT 05/11/17 1309 Signed Impressions: Service Date/Time: Thursday, May 11, 2017 15:10 - CONCLUSION: 1. Uncomplicated CT guided bone marrow aspirate. 2. Uncomplicated CT guided bone marrow biopsy. Ryan Hoover MD FACR Soft Tissue Ultrasound 05/11/17 0000 Signed Impressions: Service Date/Time: Thursday, May 11, 2017 08:27 - CONCLUSION: Negative for abscess. Edematous changes in the soft tissues of the left axilla. Hank Nixon MD Objective Remarks GENERAL: This is a well-nourished, well-developed patient, in no apparent distress. EYES: Extraocular motions intact. No scleral icterus. No injection or drainage. ENT: Nose without drainage. NECK: Trachea midline. CARDIOVASCULAR: Irregularly irregular. RESPIRATORY: Clear to auscultation. Breath sounds equal bilaterally. No wheezes. GASTROINTESTINAL: Abdomen soft, non-tender, nondistended. No palpable masses. No guarding. MUSCULOSKELETAL: Extremities without edema. No joint tenderness, effusion, or edema noted. Left axilla with area of induration under axilla, no pus or drainage, some erythema noted, tender to palpation. NEUROLOGICAL: Awake and alert. Cranial nerves II through XII intact. Motor and sensory grossly within normal limits. Normal speech. Heart of hearing, reads lips. PSYCH: Mood and affect appropriate. Medications and IVs Current Medications Medications (Trade) Dose Ordered Sig/Maritza Route Start Time Stop Time Status Last Admin (NS Flush) 2 ml UNSCH PRN IV FLUSH 05/10/17 15:00 05/15/17 03:47 (NS Flush) 2 ml BID IV FLUSH 05/10/17 21:00 05/15/17 21:02 (Tylenol) 650 mg Q4H PRN PO 05/10/17 15:00 05/13/17 23:18 (Zofran Inj) 4 mg Q6H PRN IVP 05/10/17 15:00 (Cinthia-Colace) 1 tab BID PO 05/10/17 21:00 05/15/17 20:58 (Milk Of Magnesia Liq) 30 ml Q12H PRN PO 05/10/17 15:00 (Senokot) 17.2 mg Q12H PRN PO 05/10/17 15:00 (Dulcolax Supp) 10 mg DAILY PRN RECTAL 6/22/17 15:00 (Lactulose Liq) 30 ml DAILY PRN PO 05/10/17 15:00 (Norvasc) 5 mg DAILY PO 05/11/17 09:00 Hold 05/14/17 10:17 (Lipitor) 20 mg DAILY PO 05/11/17 09:00 05/16/17 08:11 Lisinopril 20 mg 20 mg DAILY PO 05/11/17 09:00 05/16/17 08:12 (Maxipime Inj/NS Inj) 100 ml @ 200 mls/hr Q12H IV 05/11/17 08:00 05/16/17 08:11 (Roxicodone) 5 mg Q4H PRN PO 05/11/17 12:00 05/12/17 01:23 Oxycodone HCl 10 mg 10 mg Q6H PRN PO 05/11/17 12:00 Pharmacy Profile Note 0 ml @ 0 mls/hr UNSCH OTHER 05/13/17 08:45 (Vancomycin Inj/ NS 500 ml Inj) 515 ml @ 250 mls/hr Q12H IV 05/13/17 12:00 05/16/17 00:02 (Lopressor) 75 mg BID PO 05/14/17 21:00 05/16/17 08:12 (Pill Splitter) 1 ea UNSCH PRN OTHER 05/14/17 12:15 (NS Flush) 5 ml DAILY IV FLUSH 05/15/17 09:00 05/15/17 08:31 (Heparin Central Flush) 500 units DAILY IV FLUSH 05/15/17 09:00 05/15/17 10:30 (NS Flush) 5 ml UNSCH PRN IV FLUSH 05/14/17 23:30 05/15/17 03:47 (Heparin Central Flush) 500 units UNSCH PRN IV FLUSH 05/14/17 23:30 05/15/17 03:47 (NS Flush) 5 ml UNSCH PRN IV FLUSH 05/14/17 23:30 (Kytril Inj) 1 mg DAILY IV 05/15/17 12:30 05/21/17 09:01 05/15/17 15:38 Dexamethasone Sodium Phosphate 20 mg 20 mg DAILY IV 05/15/17 12:30 05/21/17 09:01 05/15/17 15:38 Idarubicin HCl 28.92 mg/Sodium Chloride 128.92 ml @ 386.76 mls/hr Q24H IV 05/15/17 13:00 05/17/17 13:19 05/15/17 16:32 Cytarabine 241 mg/ Sodium Chloride 500 ml @ 20.833 mls/ hr Q24H IV 05/15/17 14:00 05/22/17 13:59 05/15/17 17:12 (NS 1000 ml Inj) 1,000 ml @ 75 mls/hr [id number] IV 05/15/17 12:00 05/16/17 10:03 (Levaquin) 750 mg DAILY PO 05/15/17 14:00 05/16/17 08:11 (Benadryl) 25 mg Q4H PRN PO 05/15/17 15:30 A/P Problem List: (1) Pancytopenia ICD Code: D61.818 Status: Acute (2) Macrocytic anemia ICD Code: D53.9 Status: Acute (3) Alcohol abuse ICD Code: F10.10 Status: Acute (4) S/P tympanic tube insertion ICD Code: Z96.22 Status: Acute Assessment and Plan Pancytopenia Medical oncology following, suspecting myeloproliferative neoplasm/CMML. HIV negative. S/p bone marrow biopsy. B12 level normal. - follow pathology. - follow CBC and transfuse per hematology. - thiamine level pending. - chemotherapy started 05/14. Neutropenic fever/ Left axillary cellulitis US axilla negative for abscess. CXR and UA unremarkable. ID consult appreciated. Repeat chest x-ray with diffuse parenchymal opacities. - continue IV vancomycin and cefepime. Levaquin added. - follow up with ID. Acute respiratory failure Pneumonia noted on x-ray. On 4L NC. Echo with normal EF. - oxygen and nebs as needed. - Antibiotics as above. - Diuresis if needed. HTN Currently stable. - continue home medications lisinopril, and metoprolol. Amlodipine on hold as Lopressor is being uptitrated. Afib Rate elevated at times. Exacerbated by infection. - Monitor tele. - Hold Eliquis for now due to pancytopenia. - increased Lopressor to 75 mg BID. Increase as needed. Ear pain S/p tympanic tube placement by ENT for chronic ear infection. - continue antibiotics. - outpt follow up. Alcohol abuse Chronic. - Withdrawal precautions: sz and fall precaution in place. - Encouraged to quit. - on CIWA protocol if needed. PPx: SCDs Discharge Planning Awaiting clinical improvement Braxton Carbajal DO May 16, 2017 11:21
[2017-05-16] MEDS: DEXAMETHASONE SOD PHOS 20 MG/5 ML VIAL IV SCH (16:40)
[2017-05-16] MEDS: GRANISETRON HCL 1 MG/ML VIAL IV SCH (16:40)
[2017-05-16] MEDS: SODIUM CHLORIDE 0.9% IV SCH (18:11)
[2017-05-16] MEDS: IDARUBICIN IV SCH (18:11)
[2017-05-16] MEDS: CYTARABINE IV SCH (18:51)
[2017-05-16] MEDS: SODIUM CHLORID 0.9% IV SCH (18:51)
[2017-05-16 23:54] LABS: CYTOMEGALOVIRUS IGM LESS THAN 30.00 AU/mL (())
[2017-05-17] VITALS (9 sets, daily range): BP systolic 119–139; BP diastolic 67–87; PULSE 92–102; RESP 16–18; TEMP 96.7–98.2; O2SAT 92–97
[2017-05-17] MEDS: VANCOMYCIN INJ 1,500 MG in SODIUM CHLORID 0.9% 500 ML INJ 500 ML IV SCH ×2 (00:20→23:24)
[2017-05-17] MEDS: SODIUM CHLOR 0.9% 1000 ML INJ 1,000 ML IV SCH (04:00)
[2017-05-17 06:23] LABS: HEMATOCRIT 22.1 % (39.0-51.0); MEAN CELL VOLUME 96.4 FL (80.0-100.0); MEAN CORPUSCULAR HEMOGLOBIN 32.6 PG (27.0-34.0); MEAN CORPUSCULAR HGB CONC 33.9 % (32.0-36.0); PLATELET COUNT 59 TH/MM3 (150-450); RED BLOOD COUNT 2.29 MIL/MM3 (4.50-5.90); RED CELL DISTRIBUTION WIDTH 22.1 % (11.6-17.2); WHITE BLOOD COUNT 1.5 TH/MM3 (4.0-11.0)
[2017-05-17 06:26] LABS: HEMO FLAGS AUTO DIFF
[2017-05-17 06:51] LABS: BICARBONATE 24.4 MEQ/L (21.0-32.0); POTASSIUM 3.7 MEQ/L (3.5-5.1)
[2017-05-17 07:41] LABS: BANDS 2 % (0-6); BLASTS 2 % (0-0); CORRECTED NUCLEATED RBC 1 /100 WBC (0-0); POLYS (SEG NEUTROPHILS) 13 % (16-70); WBC DIFF SAMPLE 100
[2017-05-17 07:42] LABS: OVALOCYTES 1+ (NORMAL); TEARDROP RBCS 1+ (NORMAL)
[2017-05-17 07:43] LABS: PLATELET ESTIMATE SMEAR LOW (NORMAL); PLATELET MORPHOLOGY NORMAL (NORMAL)
[2017-05-17 07:44] LABS: SCAN/DIFF FINAL DIFF MANUAL
[2017-05-17 07:48] LABS: NEUTROPHIL # MANUAL DIFF 0.2 TH/MM3 (1.8-7.7)
[2017-05-17] MEDS: GRANISETRON HCL 1 MG/ML VIAL IV SCH (08:08)
[2017-05-17] MEDS: CEFEPIME INJ 2,000 MG in SODIUM CHLORIDE 0.9% INJ 100 ML IV SCH ×2 (08:08→19:59)
[2017-05-17] MEDS: DEXAMETHASONE SOD PHOS 20 MG/5 ML VIAL IV SCH (08:08)
[2017-05-17] MEDS: METOPROLOL TARTRATE 50 MG TAB PO SCH ×2 (08:09→19:58)
[2017-05-17] MEDS: LEVOFLOXACIN 750 MG TAB PO SCH (08:09)
[2017-05-17] MEDS: LISINOPRIL 20 MG TAB PO SCH (08:09)
[2017-05-17] MEDS: DOCUSATE SODIUM 50 MG/SENNA 8.6 MG TAB PO SCH ×2 (08:10→20:02)
[2017-05-17] MEDS: ATORVASTATIN 20 MG TAB PO SCH (08:10)
[2017-05-17] MEDS: Hickman Catheter Daily NS Lock Flush IV FLUSH SCH (08:16)
[2017-05-17] MEDS: SODIUM CHLORIDE 0.9% FLUSH 10 ML FLUSH IV FLUSH SCH ×2 (08:16→20:04)
[2017-05-17] MEDS ORDERED: FUROSEMIDE 40 MG TAB PO ONE (09:00)
--- NOTE | 2017-05-17 09:11 | RADRPT ---
EXAM DATE/TIME: 05/17/2017 08:43 [facility] COMPARISON: CHEST SINGLE AP, May 14, 2017, 12:22. INDICATIONS : Cough MEDICAL HISTORY : Diabetes mellitus type II. Hypercholesterolemia. Hypertension. Arthritis. Afib. Hyperlipidemia SURGICAL HISTORY : Appendectomy. hernia repair ENCOUNTER: Subsequent ACUITY: 1 week PAIN SCORE: 0/10 LOCATION: Bilateral chest FINDINGS: A drain of some type overlies the right axillary region. A central line is present with tip overlying SVC. There is diffuse interstitial and alveolar parenchymal opacity present bilaterally with slight interval increase in confluence from previous exam. Cardiac contour is grossly stable. CONCLUSION: Worsening aeration. mEerson Carrasquillo MD on May 17, 2017 at 9:07 Board Certified Radiologist. This report was verified electronically.
--- NOTE | 2017-05-17 11:15 | HHI.PR ---
Subjective Remarks The patient was sitting in the chair. He says his breathing was okay. He is still coughing bloody sputum. He says he gets chills every once in a while. He has been ambulating well. He has been having bowel movements. He was wondering about the duration of treatment and how long he would be in the hospital. Objective Vitals Vital Signs Date Time Temp Pulse Resp B/P Pulse Ox O2 Delivery O2 Flow Rate FiO2 05/17/17 10:46 Nasal Cannula 4.00 21 05/17/17 08:48 96 Nasal Cannula 5.00 05/17/17 08:00 97.4 102 16 136/76 96 05/17/17 05:30 92 Blow By 5.00 05/17/17 05:00 98.2 102 18 136/67 92 05/17/17 00:00 97.7 97 17 119/74 92 05/16/17 20:39 Nasal Cannula 4.00 05/16/17 20:16 111 05/16/17 20:00 96.3 115 18 138/82 94 05/16/17 16:00 96.4 101 20 141/89 95 05/16/17 12:00 97.0 102 20 135/83 92 I/O 05/16/17 05/16/17 05/16/17 05/17/17 05/17/17 05/17/17 07:00 15:00 23:00 07:00 15:00 23:00 Intake Total 990 ml 2605 ml 1225 ml Output Total 1150 ml 1100 ml 300 ml 1150 ml 300 ml Balance -160 ml 1505 ml -300 ml 75 ml -300 ml Intake Oral 240 ml 720 ml IV Total 750 ml 1885 ml 1225 ml Output Urine Total 1150 ml 1100 ml 300 ml 1150 ml 300 ml # Bowel Movements 1 Result Diagram: 05/17/17 0500 05/17/17 0500 Imaging Last Impressions Chest X-Ray 05/17/17 0000 Signed Impressions: Service Date/Time: April 08:43 - CONCLUSION: Worsening aeration. Emerson Carrasquillo MD Catheter Placement X-Ray 05/14/17 0000 Signed Impressions: Service Date/Time: Sunday, May 14, 2017 14:14 - CONCLUSION: Uncomplicated Jang catheter placement as above. Parker Dempsey MD Bone Biopsy CT 05/11/17 1309 Signed Impressions: Service Date/Time: Thursday, May 11, 2017 15:10 - CONCLUSION: 1. Uncomplicated CT guided bone marrow aspirate. 2. Uncomplicated CT guided bone marrow biopsy. Ryan Hoover MD FACR Soft Tissue Ultrasound 05/11/17 0000 Signed Impressions: Service Date/Time: Thursday, May 11, 2017 08:27 - CONCLUSION: Negative for abscess. Edematous changes in the soft tissues of the left axilla. Hank Nixon MD Objective Remarks GENERAL: This is a well-nourished, well-developed patient, in no apparent distress. EYES: Extraocular motions intact. No scleral icterus. No injection or drainage. ENT: Nose without drainage. NECK: Trachea midline. CARDIOVASCULAR: Irregularly irregular. RESPIRATORY: Clear to auscultation. Breath sounds equal bilaterally. No wheezes. GASTROINTESTINAL: Abdomen soft, non-tender, nondistended. No palpable masses. No guarding. MUSCULOSKELETAL: Extremities without edema. No joint tenderness, effusion, or edema noted. Left axilla with area of induration under axilla, no pus or drainage, some erythema noted, tender to palpation. NEUROLOGICAL: Awake and alert. Cranial nerves II through XII intact. Motor and sensory grossly within normal limits. Normal speech. Heart of hearing, reads lips. PSYCH: Mood and affect appropriate. Medications and IVs Current Medications Medications (Trade) Dose Ordered Sig/Maritza Route Start Time Stop Time Status Last Admin (NS Flush) 2 ml UNSCH PRN IV FLUSH 05/10/17 15:00 05/15/17 03:47 (NS Flush) 2 ml BID IV FLUSH 05/10/17 21:00 05/15/17 21:02 (Tylenol) 650 mg Q4H PRN PO 05/10/17 15:00 05/13/17 23:18 (Zofran Inj) 4 mg Q6H PRN IVP 05/10/17 15:00 (Cinthia-Colace) 1 tab BID PO 05/10/17 21:00 05/17/17 08:10 (Milk Of Magnesia Liq) 30 ml Q12H PRN PO 05/10/17 15:00 (Senokot) 17.2 mg Q12H PRN PO 05/10/17 15:00 (Dulcolax Supp) 10 mg DAILY PRN RECTAL 05/10/17 15:00 (Lactulose Liq) 30 ml DAILY PRN PO 05/10/17 15:00 (Norvasc) 5 mg DAILY PO 05/11/17 09:00 Hold 05/14/17 10:17 (Lipitor) 20 mg DAILY PO 05/11/17 09:00 05/17/17 08:10 Lisinopril 20 mg 20 mg DAILY PO 05/11/17 09:00 05/17/17 08:09 (Maxipime Inj/NS Inj) 100 ml @ 200 mls/hr Q12H IV 05/11/17 08:00 05/17/17 08:08 (Roxicodone) 5 mg Q4H PRN PO 05/11/17 12:00 05/12/17 01:23 Oxycodone HCl 10 mg 10 mg Q6H PRN PO 05/11/17 12:00 Pharmacy Profile Note 0 ml @ 0 mls/hr UNSCH OTHER 05/13/17 08:45 (Vancomycin Inj/ NS 500 ml Inj) 515 ml @ 250 mls/hr Q12H IV 05/13/17 12:00 05/17/17 00:20 (Lopressor) 75 mg BID PO 05/14/17 21:00 05/17/17 08:09 (Pill Splitter) 1 ea UNSCH PRN OTHER 05/14/17 12:15 (NS Flush) 5 ml DAILY IV FLUSH 05/15/17 09:00 05/15/17 08:31 (Heparin Central Flush) 500 units DAILY IV FLUSH 05/15/17 09:00 05/15/17 10:30 (NS Flush) 5 ml UNSCH PRN IV FLUSH 05/14/17 23:30 05/15/17 03:47 (Heparin Central Flush) 500 units UNSCH PRN IV FLUSH 05/14/17 23:30 05/15/17 03:47 (NS Flush) 5 ml UNSCH PRN IV FLUSH 05/14/17 23:30 (Kytril Inj) 1 mg DAILY IV 05/15/17 12:30 05/21/17 09:01 05/17/17 08:08 Dexamethasone Sodium Phosphate 20 mg 20 mg DAILY IV 05/15/17 12:30 05/21/17 09:01 05/17/17 08:08 Idarubicin HCl 28.92 mg/Sodium Chloride 128.92 ml @ 386.76 mls/hr Q24H IV 05/15/17 13:00 05/17/17 13:19 05/16/17 18:11 Cytarabine 241 mg/ Sodium Chloride 500 ml @ 20.833 mls/ hr Q24H IV 05/15/17 14:00 05/22/17 13:59 05/16/17 18:51 (NS 1000 ml Inj) 1,000 ml @ 30 mls/hr Q24H IV 05/15/17 12:00 05/17/17 04:00 (Levaquin) 750 mg DAILY PO 05/15/17 14:00 05/17/17 08:09 (Benadryl) 25 mg Q4H PRN PO 05/15/17 15:30 A/P Problem List: (1) Pancytopenia ICD Code: D61.818 Status: Acute (2) Macrocytic anemia ICD Code: D53.9 Status: Acute (3) Alcohol abuse ICD Code: F10.10 Status: Acute (4) S/P tympanic tube insertion ICD Code: Z96.22 Status: Acute Assessment and Plan Acute myelomonocytic anemia Medical oncology following, suspecting myeloproliferative neoplasm/CMML. HIV negative. S/p bone marrow biopsy. Pathology revealed acute myelomonocytic leukemia. - follow CBC and transfuse per hematology. - chemotherapy started 05/14. - continue steroids. Neutropenic fever/ Left axillary cellulitis US axilla negative for abscess. CXR and UA unremarkable. ID consult appreciated. Repeat chest x-ray with diffuse parenchymal opacities, worsening aeration. - continue IV vancomycin and cefepime. Levaquin added. - follow up with ID. - follow cultures. Acute respiratory failure Pneumonia noted on x-ray. On 4L NC. Echo with normal EF. Coughs up bloody sputum. - oxygen and nebs as needed. - Antibiotics as above. - Diuresis as needed. - pulmonology consult pending. HTN Currently stable. - continue home medications lisinopril, and metoprolol. Amlodipine on hold as Lopressor is being uptitrated. Afib Rate elevated at times. Exacerbated by infection. - Monitor tele. - Hold Eliquis for now due to pancytopenia. - increased Lopressor to 75 mg BID. Increase as needed. Ear pain S/p tympanic tube placement by ENT for chronic ear infection. - continue antibiotics. - outpt follow up. Alcohol abuse Chronic. - Withdrawal precautions: sz and fall precaution in place. - Encouraged to quit. - on CIWA protocol if needed. Hyperglycemia S/t dexamethasone. - cover with insulin sliding scale. PPx: SCDs Discharge Planning Awaiting clinical improvement Braxton Carbajal DO May 17, 2017 11:14
--- NOTE | 2017-05-17 11:20 | PD.ONC.PN ---
Subjective Subjective Remarks Afebrile overnight. Patient resting in chair next to bed. Still with occasional cough, requiring supplemental O2 support. Tolerating chemotherapy. Objective Data Date Time Temp Pulse Resp B/P Pulse Ox O2 Delivery O2 Flow Rate FiO2 05/17/17 10:46 Nasal Cannula 4.00 21 05/17/17 08:48 96 Nasal Cannula 5.00 05/17/17 08:00 97.4 102 16 136/76 96 05/17/17 05:30 92 Blow By 5.00 05/17/17 05:00 98.2 102 18 136/67 92 05/17/17 00:00 97.7 97 17 119/74 92 05/16/17 20:39 Nasal Cannula 4.00 05/16/17 20:16 111 05/16/17 20:00 96.3 115 18 138/82 94 05/16/17 16:00 96.4 101 20 141/89 95 05/16/17 12:00 97.0 102 20 135/83 92 05/17/17 05/17/17 05/17/17 07:00 15:00 23:00 Intake Total 1225 ml Output Total 1150 ml 300 ml Balance 75 ml -300 ml Result Diagram: 05/17/17 0500 05/17/17 0500 Laboratory Results Laboratory Tests Test 05/17/17 05:00 White Blood Count 1.5 TH/MM3 Red Blood Count 2.29 MIL/MM3 Hemoglobin 7.5 GM/DL Hematocrit 22.1 % Mean Corpuscular Volume 96.4 FL Mean Corpuscular Hemoglobin 32.6 PG Mean Corpuscular Hemoglobin 33.9 % Concent Red Cell Distribution Width 22.1 % Platelet Count 59 TH/MM3 Mean Platelet Volume 7.6 FL Neutrophils (%) (Auto) % Lymphocytes (%) (Auto) % Monocytes (%) (Auto) % Eosinophils (%) (Auto) % Basophils (%) (Auto) % Neutrophils # (Auto) TH/MM3 Lymphocytes # (Auto) TH/MM3 Monocytes # (Auto) TH/MM3 Eosinophils # (Auto) TH/MM3 Basophils # (Auto) TH/MM3 CBC Comment AUTO DIFF Differential Total Cells 100 Counted Neutrophils % (Manual) 13 % Band Neutrophils % 2 % Lymphocytes % 29 % Monocytes % 54 % Neutrophils # (Manual) 0.2 TH/MM3 Nucleated Red Blood Cells 1 /100 WBC Differential Comment FINAL DIFF MANUAL Blastocytes 2 % Platelet Estimate LOW Platelet Morphology Comment NORMAL Tear Drop Cells 1+ Ovalocytes 1+ Sodium Level 140 MEQ/L Potassium Level 3.7 MEQ/L Chloride Level 109 MEQ/L Carbon Dioxide Level 24.4 MEQ/L Anion Gap 7 MEQ/L Blood Urea Nitrogen 24 MG/DL Creatinine 0.72 MG/DL Estimat Glomerular Filtration 110 ML/MIN Rate Random Glucose 205 MG/DL Calcium Level 7.6 MG/DL Imaging Studies Last 24 hours Impressions Chest X-Ray 05/17/17 0000 Signed Impressions: Service Date/Time: April 08:43 - CONCLUSION: Worsening aeration. Emerson Carrasquillo MD Administered Medications Medications (Trade) Dose Ordered Sig/Maritza Route PRN Reason Start Time Stop Time Status Last Admin Dose Admin Sodium Chloride (NS Flush) 2 ml UNSCH PRN IV FLUSH FLUSH AFTER USING IV ACCESS 05/10/17 15:00 05/15/17 03:47 Sodium Chloride (NS Flush) 2 ml BID IV FLUSH 05/10/17 21:00 05/15/17 21:02 Acetaminophen (Tylenol) 650 mg Q4H PRN PO TEMP > 100.4 OR PREMEDICATION FOR BLOOD PRODUCT 05/10/17 15:00 05/13/17 23:18 Senna/Docusate Sodium (Cinthia-Colace) 1 tab BID PO 05/10/17 21:00 05/17/17 08:10 Amlodipine Besylate (Norvasc) 5 mg DAILY PO 05/11/17 09:00 Hold 05/14/17 10:17 Atorvastatin Calcium (Lipitor) 20 mg DAILY PO 05/11/17 09:00 05/17/17 08:10 Lisinopril 20 mg 20 mg DAILY PO 05/11/17 09:00 05/17/17 08:09 Cefepime HCl/ Sodium Chloride (Maxipime Inj/NS Inj) 100 ml @ 200 mls/hr Q12H IV 05/11/17 08:00 05/17/17 08:08 Oxycodone HCl 5 mg 5 mg Q4H PRN PO PAIN SCALE 3 TO 5 05/11/17 12:00 05/12/17 01:23 Vancomycin HCl/ Sodium Chloride (Vancomycin Inj/ NS 500 ml Inj) 515 ml @ 250 mls/hr Q12H IV 05/13/17 12:00 05/17/17 00:20 Metoprolol Tartrate (Lopressor) 75 mg BID PO 05/14/17 21:00 05/17/17 08:09 Sodium Chloride (NS Flush) 5 ml DAILY IV FLUSH 05/15/17 09:00 05/15/17 08:31 Heparin Sodium (Porcine) (Heparin Central Flush) 500 units DAILY IV FLUSH 05/15/17 09:00 05/15/17 10:30 Sodium Chloride (NS Flush) 5 ml UNSCH PRN IV FLUSH SEE PROTOCOL TABLE 05/14/17 23:30 05/15/17 03:47 Heparin Sodium (Porcine) (Heparin Central Flush) 500 units UNSCH PRN IV FLUSH SEE PROTOCOL TABLE 05/14/17 23:30 05/15/17 03:47 Granisetron HCl (Kytril Inj) 1 mg DAILY IV 05/15/17 12:30 05/21/17 09:01 05/17/17 08:08 Dexamethasone Sodium Phosphate 20 mg 20 mg DAILY IV 05/15/17 12:30 05/21/17 09:01 05/17/17 08:08 Idarubicin HCl 28.92 mg/Sodium Chloride 128.92 ml @ 386.76 mls/hr Q24H IV 05/15/17 13:00 05/17/17 13:19 05/16/17 18:11 Cytarabine 241 mg/ Sodium Chloride 500 ml @ 20.833 mls/ hr Q24H IV 05/15/17 14:00 05/22/17 13:59 05/16/17 18:51 Sodium Chloride (NS 1000 ml Inj) 1,000 ml @ 30 mls/hr Q24H IV 05/15/17 12:00 05/17/17 04:00 Levofloxacin (Levaquin) 750 mg DAILY PO 05/15/17 14:00 05/17/17 08:09 Objective Remarks GENERAL: Middle aged male, upright in chair next to bed in [facility]. SKIN: Warm and dry. HEAD: Normocephalic. EYES: No injection or drainage. NECK: Supple, trachea midline. CARDIOVASCULAR: Regular rate and rhythm RESPIRATORY: diminished at bases. scattered rhonchi. On 4L O2 via NC GASTROINTESTINAL: Abdomen soft, non-tender, nondistended. EXTREMITIES: No cyanosis, no edema NEUROLOGICAL: awake and alert, normal speech. moving all extremities Assessment/Plan Problem List: (1) Acute myelomonocytic leukemia Status: Acute Plan: --flow cytometry indicates acute myelomonocytic leukemia --s/p souza catheter placement 05/14: Souza catheter placement and echo--EF=55-60% 05/15: Day 1 Induction chemotherapy with SHABANA-C/Idarubicin 05/16: D2. no transfusion today. tolerating chemotherapy 05/17: D3. no transfusion. continue chemo (2) Neutropenic fever Status: Acute Plan: --ID following --on Vanco, Cefepime, and Levaquin --CXR shows diffuse parenchymal opacities. --BC no growth (3) Hyperbilirubinemia Status: Acute Plan: --combination of direct and indirect elevated. --unclear etiology --will obtain hepatitis panel, monitor (4) Respiratory insufficiency Status: Acute Plan: --CXR shows worsening aeration. --will consult pulmonology --on duonebs PRN --Lasix PRN Assessment 66y/o male with newly diagnosed AML. Plan 1. continue induction chemotherapy 2. monitor blood counts 3. continue antibiotics. 4. consult pulmonology Attending Statement The exam, history, and the medical decision-making described in the above note were completed with the assistance of the mid-level provider. I reviewed and agree with the findings presented. I attest that I had a [id number] encounter with the patient on the same day, and personally performed and documented my assessment and findings in the medical record. Pt seen and examined. c/o SOB, sputum production, some blood tinge. Reviewed Cxray. Trial diuresis, oral lasix, decrease IVF, consult pulmonary before becomes more neutropenic. Abx support already continue. Monitor response to diuresis. Echo was normal. Induction chemotherapy continue. Problem Qualifiers (1) Acute myelomonocytic leukemia: Qualified Code: C92.50 - Acute myelomonocytic leukemia not having achieved remission Nettie Lutz May 17, 2017 11:20 Neva Palmer MD May 17, 2017 16:34
[2017-05-17] MEDS ORDERED: DEXTROSE 50% IN WATER 50 ML VIAL(D50) IV PUSH PRN (11:30)
[2017-05-17] MEDS ORDERED: GLUCAGON 1 MG/ML VIAL OTHER PRN (11:30)
--- NOTE | 2017-05-17 14:32 | HHI.IDPN ---
Subjective Subjective Remarks 66 year old male, with newly Dx AML. Has had low grade temps. Notes reviewed Temps better Repeat CXR worsening infiltrates C/O SOB, has dry cough, occ blood in sputum No N/V Antibiotics Vancomycin Cefepime Lines KAYKAY Jang Past Medical History Atrial fibrillation Hypertension Hyperlipidemia Arthritis Past Surgical History Hernia repair Tonsillectomy Left knee replacement Allergies: Coded Allergies: No Known Allergies (Unverified , 05/10/17) Objective . Vital Signs Date Time Temp Pulse Resp B/P Pulse Ox O2 Delivery O2 Flow Rate FiO2 05/17/17 12:00 97.7 95 18 132/70 95 05/17/17 10:46 Nasal Cannula 4.00 21 05/17/17 08:48 96 Nasal Cannula 5.00 05/17/17 08:00 97.4 102 16 136/76 96 05/17/17 05:30 92 Blow By 5.00 05/17/17 05:00 98.2 102 18 136/67 92 05/17/17 00:00 97.7 97 17 119/74 92 05/16/17 20:39 Nasal Cannula 4.00 05/16/17 20:16 111 05/16/17 20:00 96.3 115 18 138/82 94 05/16/17 16:00 96.4 101 20 141/89 95 05/16/17 05/16/17 05/17/17 14:59 22:59 06:59 Intake Total 1885 ml 720 ml 1225 ml Output Total 1400 ml 1150 ml Balance 1885 ml -680 ml 75 ml Intake Oral 720 ml IV Total 1885 ml 1225 ml Output Urine Total 1400 ml 1150 ml # Bowel Movements 1 . Laboratory Tests Test 05/16/17 05/17/17 05:00 05:00 White Blood Count 1.5 TH/MM3 1.5 TH/MM3 Red Blood Count 2.36 MIL/MM3 2.29 MIL/MM3 Hemoglobin 7.8 GM/DL 7.5 GM/DL Hematocrit 22.9 % 22.1 % Mean Corpuscular Volume 97.0 FL 96.4 FL Mean Corpuscular Hemoglobin 32.9 PG 32.6 PG Mean Corpuscular Hemoglobin 33.9 % 33.9 % Concent Red Cell Distribution Width 22.0 % 22.1 % Platelet Count 58 TH/MM3 59 TH/MM3 Mean Platelet Volume 7.4 FL 7.6 FL Neutrophils (%) (Auto) % % Lymphocytes (%) (Auto) % % Monocytes (%) (Auto) % % Eosinophils (%) (Auto) % % Basophils (%) (Auto) % % Neutrophils # (Auto) TH/MM3 TH/MM3 Lymphocytes # (Auto) TH/MM3 TH/MM3 Monocytes # (Auto) TH/MM3 TH/MM3 Eosinophils # (Auto) TH/MM3 TH/MM3 Basophils # (Auto) TH/MM3 TH/MM3 CBC Comment AUTO DIFF AUTO DIFF Differential Total Cells 100 100 Counted Neutrophils % (Manual) 11 % 13 % Lymphocytes % 33 % 29 % Monocytes % 55 % 54 % Neutrophils # (Manual) 0.2 TH/MM3 0.2 TH/MM3 Myelocytes 1 % Differential Comment FINAL DIFF FINAL DIFF MANUAL MANUAL Platelet Estimate LOW LOW Platelet Morphology Comment NORMAL NORMAL Ovalocytes 1+ 1+ Band Neutrophils % 2 % Nucleated Red Blood Cells 1 /100 WBC Blastocytes 2 % Tear Drop Cells 1+ Laboratory Tests Test 05/16/17 05/17/17 05:00 05:00 Sodium Level 144 MEQ/L 140 MEQ/L Potassium Level 3.8 MEQ/L 3.7 MEQ/L Chloride Level 109 MEQ/L 109 MEQ/L Carbon Dioxide Level 24.4 MEQ/L 24.4 MEQ/L Anion Gap 11 MEQ/L 7 MEQ/L Blood Urea Nitrogen 20 MG/DL 24 MG/DL Creatinine 0.71 MG/DL 0.72 MG/DL Estimat Glomerular Filtration 111 ML/MIN 110 ML/MIN Rate Random Glucose 195 MG/DL 205 MG/DL Calcium Level 7.9 MG/DL 7.6 MG/DL Magnesium Level 2.4 MG/DL Total Bilirubin 1.3 MG/DL Direct Bilirubin 0.6 MG/DL Indirect Bilirubin 0.7 MG/DL Aspartate Amino Transf 20 U/L (AST/SGOT) Alanine Aminotransferase 16 U/L (ALT/SGPT) Alkaline Phosphatase 84 U/L Lactate Dehydrogenase 475 U/L Total Protein 6.8 GM/DL Albumin 2.5 GM/DL Imaging Last Impressions Chest X-Ray 05/12/17 0000 Signed Impressions: Service Date/Time: Friday, May 12, 2017 14:53 - CONCLUSION: Mild cardiomegaly. Emerson Farias MD Bone Biopsy CT 05/11/17 1309 Signed Impressions: Service Date/Time: Thursday, May 11, 2017 15:10 - CONCLUSION: 1. Uncomplicated CT guided bone marrow aspirate. 2. Uncomplicated CT guided bone marrow biopsy. Ryan Hoover MD FACR Soft Tissue Ultrasound 05/11/17 0000 Signed Impressions: Service Date/Time: Thursday, May 11, 2017 08:27 - CONCLUSION: Negative for abscess. Edematous changes in the soft tissues of the left axilla. Hank Nixon MD Physical Exam GENERAL: awake and alert, not in respiratory distress. SKIN: Warm and dry. No generalized rash, no ecchymoses and no evidence of embolic lesions. HEAD: Atraumatic. Normocephalic. No temporal wasting, or tenderness. EYES: Pale conjunctiva. No petechia or hemorrhage. Pupils equal, round and reactive to light. Extraocular movements full and intact. No scleral icterus. No injection or drainage. EARS, NOSE AND THROAT: Nose without bleeding or purulent nasal discharge. No sinus tenderness. Mucous membranes pink and moist. No oral lesions noted. He is edentulous. No drainage R ear NECK: Trachea midline. Supple and not tender, no meningeal signs CARDIOVASCULAR: Irregular rate and rhythm. No murmurs, rubs or gallops heard RESPIRATORY: Coarse BS bilaterally ABDOMEN: Soft, non-tender, nondistended. Bowel sounds present and normoactive. No guarding. No rebound. No organomegaly. EXTREMITIES: No clubbing, cyanosis, or edema. No joint effusion, has good ROM. No calf tenderness. L axilla - there is an indurated area about 2 inch x 1 in size, tender, with a small area of redness almost at the center. NEUROLOGICAL: Non-focal PSYCHIATRIC: Normal affect, calm and cooperative. LINE: No evidence of infection Assessment & Plan Remarks IMPRESSION Fever, patient with newly Dx leukemia, monocytic - temps better - has possible follicultis or hidradenitis L axilla - has tubes to R ear for infection - has new pulmonary infiltrates, ?infection, ?hemorrhage New bilateral infiltrates - BNP 300+ - echo good LV function RECOMMENDATION Continue vanco and Cefepime Continue Levaquin legio and pneumo Ag Agree with pulmonary evaluation Follow temps Follow C/S Monitor progress D/W H Susie Miguel MD May 17, 2017 14:32 Susie Garcia MD May 17, 2017 14:32
--- NOTE | 2017-05-17 18:03 | MB ---
cc: JOE DANGELO MICHAEL DATE OF CONSULTATION: 05/17/[address] Carbajal. REASON FOR CONSULTATION Lung infiltrate and hemoptysis. HISTORY OF PRESENT ILLNESS Mr. 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 The patient follows with Dr. Manning. He has lost 25 pounds of weight over the last few months. He also complains of feeling weak and dizzy going on for almost up to one year. He does not have any cough or sputum production, no fevers or chills, no nausea or vomiting. Other than dizziness he denied any symptom. He saw his local physician and he was noted to have significant anemia and abnormal blood count, he was sent to the emergency room. The patient was seen by Dr. Diez. He had a bone marrow biopsy done which is consistent with monomyelocytic leukemia. REVIEW OF SYSTEMS The patient denies any shortness of breath. He has cough with a small amount of blood-tinged sputum. Denies any chest pain. No fever. PAST MEDICAL HISTORY His past medical history is significant for a history of - 1. Hypertension. 2. Atrial fibrillation. 3. Valvular heart disease. 4. Left knee surgery. MEDICATIONS He is currently taking - 1. Benadryl p.r.n. 2. Albuterol/Atrovent nebulizer treatment. 3. Cytarabine 241 ng q.24 hours. 4. Levaquin 750 mg a day. 5. Decadron 20 mg daily. 6. Kytril 1 mg daily. 7. Vancomycin IV. 8. Oxycodone for pain. 9. Cefepime 2 grams q.12 hours. ALLERGIES NO KNOWN DRUG ALLERGIES. SOCIAL HISTORY He worked as a construction equipment mechanic. No history of smoking. Drinks beer 2-6 cans off and on. No drug abuse. FAMILY HISTORY He is single, never , has no children. He has one sister and a step-mom who recently he put in the long-term. REVIEW OF SYSTEMS He has lost weight, feels weak, complained of dizziness, has hemoptysis. No prior malignancy. No DVT, pulmonary embolism, seizure or stroke. PHYSICAL EXAMINATION GENERAL: Reveals a well-built, well-nourished male, not acute distress. VITAL SIGNS: Blood pressure 139/74, heart rate 100, respiration 18, temperature 97. HEAD, EYES, EARS, NOSE AND THROAT: Pupils are equal and reactive to light. Oral mucosa, nasal mucosa normal. NECK: Supple. JVP not raised. CHEST: Air entry equal bilaterally. He has scattered rales. CARDIOVASCULAR: S1, S2 normal. ABDOMEN: Benign. EXTREMITIES: No edema. IMPRESSION 1. Bilateral patchy infiltrate with hemoptysis. Rule out infective process. 2. Acute monomyelocytic leukemia. 3. Pancytopenia. 4. Hemoptysis. PLAN I discussed with the patient we will get a CT scan of the chest without contrast. Continue present antibiotic per ID. Monitor his hemoptysis, if hemoptysis persists a CT scan and if suspicious we will consider bronchoscopy. Further treatment will depend on the course in the hospital. Thank you Dr. Carbajal for this consultation. MD MAGI Ford/JENNIFER /4:57 PM /5:23 PM MTDCristiane
--- NOTE | 2017-05-17 19:15 | RADRPT ---
EXAM DATE/TIME: 05/17/2017 17:53 [facility] COMPARISON: CHEST SINGLE AP, May 17, 2017, 8:43. INDICATIONS : Bilateral ulnar infiltrates. Shortness of breath RADIATION DOSE: 9.89 CTDIvol (mGy) MEDICAL HISTORY : Cardiovascular disease. SURGICAL HISTORY : Tonsillectomy. Appendectomy. ENCOUNTER: Initial ACUITY: 1 day PAIN SCALE: 0/10 LOCATION: chest TECHNIQUE: Volumetric scanning of the chest was performed. Using automated exposure control and adjustment of t he mA and/or kV according to patient size, radiation dose was kept as low as reasonably achievable to obtain optimal diagnostic quality images. DICOM format image data is available electronically for r eview and comparison. FINDINGS: LUNGS: There is no pneumothorax. No concerning pulmonary nodule is visualized. Bilateral alveolar infiltrat es are present with consolidation greatest in the perihilar regions. PLEURAE: There are bilateral small to moderate pleural effusions. MEDIASTINUM: The heart and great vessels demonstrate no acute abnormality. There is no mediastinal or hilar lymph adenopathy. Coronary artery calcifications are present. There is a small amount of pericardial fluid. AXILLAE: Within normal limits. No lymphadenopathy. MUSCULOSKELETAL: Within normal limits for patient age. MISCELLANEOUS: The visualized upper abdominal organs demonstrate no acute abnormality. The left lobe of the thyroid gland is enlarged with low attenuation nodular area. CONCLUSION: 1. Bilateral alveolar infiltrates most characteristic of pulmonary edema. 2. Small to moderate bilateral pleural effusions. 3. Small amount of pericardial fluid. 4. Coronary artery calcifications. 5. Prominent left lobe of the thyroid with low attenuation nodular area. Braxton Tidwell MD on May 17, 2017 at 19:10 Board Certified Radiologist. This report was verified electronically.
[2017-05-17] MEDS: INSULIN ASPART SUPPLEMENTAL SCALE SQ SCH (20:01)
[2017-05-17] MEDS: IDARUBICIN IV SCH (22:03)
[2017-05-17] MEDS: SODIUM CHLORIDE 0.9% IV SCH (22:03)
[2017-05-17] MEDS: CYTARABINE IV SCH (23:14)
[2017-05-17] MEDS: SODIUM CHLORID 0.9% IV SCH (23:14)
[2017-05-18] VITALS (12 sets, daily range): BP systolic 117–143; BP diastolic 60–96; PULSE 85–116; RESP 16–20; TEMP 96.5–98.3; O2SAT 91–98
[2017-05-18 05:41] LABS: MEAN CELL VOLUME 96.1 FL (80.0-100.0); MEAN CORPUSCULAR HEMOGLOBIN 32.1 PG (27.0-34.0); MEAN CORPUSCULAR HGB CONC 33.4 % (32.0-36.0); PLATELET COUNT 45 TH/MM3 (150-450); RED CELL DISTRIBUTION WIDTH 21.5 % (11.6-17.2); WHITE BLOOD COUNT 0.6 TH/MM3 (4.0-11.0)
[2017-05-18 05:53] LABS: HEMO FLAGS AUTO DIFF
[2017-05-18 05:54] LABS: HEMATOCRIT 19.2 % (39.0-51.0)
[2017-05-18] MEDS: SODIUM CHLOR 0.9% 1000 ML INJ 1,000 ML IV SCH (06:11)
[2017-05-18] MEDS: INSULIN ASPART SUPPLEMENTAL SCALE SQ SCH ×4 (06:20→20:39)
[2017-05-18 06:36] LABS: BICARBONATE 24.6 MEQ/L (21.0-32.0); POTASSIUM 4.1 MEQ/L (3.5-5.1)
[2017-05-18 07:01] LABS: CALCIUM-PROTEIN CORRECTED 8.2 MG/DL (8.5-10.1)
[2017-05-18 08:31] LABS: BANDS 2 % (0-6); NEUTROPHIL # MANUAL DIFF 0.1 TH/MM3 (1.8-7.7); OVALOCYTES 1+ (NORMAL); PLATELET ESTIMATE SMEAR LOW (NORMAL); PLATELET MORPHOLOGY NORMAL (NORMAL); POLYS (SEG NEUTROPHILS) 18 % (16-70); SCAN/DIFF FINAL DIFF MANUAL; WBC DIFF SAMPLE 50
[2017-05-18] MEDS: METOPROLOL TARTRATE 50 MG TAB PO SCH ×2 (08:54→20:40)
[2017-05-18] MEDS: LISINOPRIL 20 MG TAB PO SCH (08:54)
[2017-05-18] MEDS: ATORVASTATIN 20 MG TAB PO SCH (08:54)
[2017-05-18] MEDS: DOCUSATE SODIUM 50 MG/SENNA 8.6 MG TAB PO SCH ×2 (08:54→20:40)
[2017-05-18] MEDS: LEVOFLOXACIN 750 MG TAB PO SCH (08:54)
[2017-05-18] MEDS: CEFEPIME INJ 2,000 MG in SODIUM CHLORIDE 0.9% INJ 100 ML IV SCH ×2 (08:55→20:32)
[2017-05-18] MEDS: SODIUM CHLORIDE 0.9% FLUSH 10 ML FLUSH IV FLUSH SCH ×2 (09:00→20:27)
[2017-05-18] MEDS: FUROSEMIDE 40 MG/4 ML VIAL IV PUSH SCH (09:44)
[2017-05-18] MEDS: GRANISETRON HCL 1 MG/ML VIAL IV SCH (09:44)
[2017-05-18] MEDS: DEXAMETHASONE SOD PHOS 20 MG/5 ML VIAL IV SCH (09:44)
[2017-05-18] MEDS: Hickman Catheter Daily NS Lock Flush IV FLUSH SCH (09:48)
--- NOTE | 2017-05-18 10:07 | HHI.IDPN ---
Subjective Subjective Remarks 66 year old male, with newly Dx AML. Has had low grade temps. Notes reviewed Temps better States breathing is the same, not worse On nasal O2 CT chest with debbi alveolar infiltrates Phlegm with blood, not bringing up a lot Repeat CXR worsening infiltrates No CP No N/V Antibiotics Vancomycin Cefepime Lines KAYKAY Jang Past Medical History Atrial fibrillation Hypertension Hyperlipidemia Arthritis Past Surgical History Hernia repair Tonsillectomy Left knee replacement Allergies: Coded Allergies: No Known Allergies (Unverified , 05/10/17) Objective . Vital Signs Date Time Temp Pulse Resp B/P Pulse Ox O2 Delivery O2 Flow Rate FiO2 05/18/17 09:19 95 Nasal Cannula 3.50 05/18/17 08:00 96.5 106 18 134/60 95 05/18/17 04:20 92 4.00 05/18/17 04:09 97.6 95 18 137/70 92 05/18/17 00:00 97.3 91 18 117/66 92 05/17/17 20:02 92 05/17/17 20:00 96.7 99 18 137/87 97 05/17/17 18:15 96 Nasal Cannula 4.00 05/17/17 16:00 97.0 100 18 139/74 96 05/17/17 12:00 97.7 95 18 132/70 95 05/17/17 10:46 Nasal Cannula 4.00 21 05/17/17 05/17/17 05/18/17 15:00 23:00 07:00 Intake Total 600 ml 240 ml 950 ml Output Total 1600 ml 1300 ml 400 ml Balance -1000 ml -1060 ml 550 ml Intake Oral 600 ml 240 ml 950 ml Output Urine Total 1600 ml 1300 ml 400 ml # Bowel Movements 0 . Laboratory Tests Test 05/17/17 05/18/17 05:00 04:00 White Blood Count 1.5 TH/MM3 0.6 TH/MM3 Red Blood Count 2.29 MIL/MM3 2.00 MIL/MM3 Hemoglobin 7.5 GM/DL 6.4 GM/DL Hematocrit 22.1 % 19.2 % Mean Corpuscular Volume 96.4 FL 96.1 FL Mean Corpuscular Hemoglobin 32.6 PG 32.1 PG Mean Corpuscular Hemoglobin 33.9 % 33.4 % Concent Red Cell Distribution Width 22.1 % 21.5 % Platelet Count 59 TH/MM3 45 TH/MM3 Mean Platelet Volume 7.6 FL 7.7 FL Neutrophils (%) (Auto) % % Lymphocytes (%) (Auto) % % Monocytes (%) (Auto) % % Eosinophils (%) (Auto) % % Basophils (%) (Auto) % % Neutrophils # (Auto) TH/MM3 TH/MM3 Lymphocytes # (Auto) TH/MM3 TH/MM3 Monocytes # (Auto) TH/MM3 TH/MM3 Eosinophils # (Auto) TH/MM3 TH/MM3 Basophils # (Auto) TH/MM3 TH/MM3 CBC Comment AUTO DIFF AUTO DIFF Differential Total Cells 100 50 Counted Neutrophils % (Manual) 13 % 18 % Band Neutrophils % 2 % 2 % Lymphocytes % 29 % 36 % Monocytes % 54 % 44 % Neutrophils # (Manual) 0.2 TH/MM3 0.1 TH/MM3 Nucleated Red Blood Cells 1 /100 WBC Differential Comment FINAL DIFF FINAL DIFF MANUAL MANUAL Blastocytes 2 % Platelet Estimate LOW LOW Platelet Morphology Comment NORMAL NORMAL Tear Drop Cells 1+ Ovalocytes 1+ 1+ Laboratory Tests Test 05/17/17 05/18/17 05:00 04:00 Sodium Level 140 MEQ/L 143 MEQ/L Potassium Level 3.7 MEQ/L 4.1 MEQ/L Chloride Level 109 MEQ/L 109 MEQ/L Carbon Dioxide Level 24.4 MEQ/L 24.6 MEQ/L Anion Gap 7 MEQ/L 9 MEQ/L Blood Urea Nitrogen 24 MG/DL 23 MG/DL Creatinine 0.72 MG/DL 0.64 MG/DL Estimat Glomerular Filtration 110 ML/MIN 126 ML/MIN Rate Random Glucose 205 MG/DL 199 MG/DL Calcium Level 7.6 MG/DL 7.4 MG/DL Protein Corrected Calcium 8.2 MG/DL Total Protein 5.6 GM/DL Microbiology Date/Time Procedure Status Source Growth 05/18/17 02:30 Legionella Antigen - Final Complete Urine Clean Catch PRESUMPTIVE NEGATIVE FOR LEGIONELLA P... 05/18/17 02:30 Streptococcus pneumoniae Antigen (M - Final Complete Urine Clean Catch PRESUMPTIVE NEGATIVE FOR STREPTOCOCCU... Imaging Chest X-Ray 05/17/17 0000 Signed Impressions: Service Date/Time: April 08:43 - CONCLUSION: Worsening aeration. Emerson Carrasquillo MD Chest CT 05/17/17 0000 Signed Impressions: Service Date/Time: April 17:53 - CONCLUSION: 1. Bilateral alveolar infiltrates most characteristic of pulmonary edema. 2. Small to moderate bilateral pleural effusions. 3. Small amount of pericardial fluid. 4. Coronary artery calcifications. 5. Prominent left lobe of the thyroid with low attenuation nodular area. Braxton Tidwell MD Chest X-Ray 05/12/17 0000 Signed Impressions: Service Date/Time: Friday, May 12, 2017 14:53 - CONCLUSION: Mild cardiomegaly. Emerson Farias MD Bone Biopsy CT 05/11/17 1309 Signed Impressions: Service Date/Time: Thursday, May 11, 2017 15:10 - CONCLUSION: 1. Uncomplicated CT guided bone marrow aspirate. 2. Uncomplicated CT guided bone marrow biopsy. Ryan Hoover MD FACR Soft Tissue Ultrasound 05/11/17 0000 Signed Impressions: Service Date/Time: Thursday, May 11, 2017 08:27 - CONCLUSION: Negative for abscess. Edematous changes in the soft tissues of the left axilla. Hank Nixon MD Physical Exam GENERAL: awake and alert, not in respiratory distress. SKIN: Warm and dry. No generalized rash, no ecchymoses and no evidence of embolic lesions. HEAD: Atraumatic. Normocephalic. No temporal wasting, or tenderness. EYES: Pale conjunctiva. No petechia or hemorrhage. Pupils equal, round and reactive to light. No scleral icterus. No injection or drainage. EARS, NOSE AND THROAT: Nose without bleeding or purulent nasal discharge. No sinus tenderness. Mucous membranes pink and moist. No oral lesions noted. He is edentulous. No drainage R ear NECK: Trachea midline. Supple and not tender, no meningeal signs CARDIOVASCULAR: Irregular rate and rhythm. No murmurs, rubs or gallops heard RESPIRATORY: Coarse BS bilaterally ABDOMEN: Soft, non-tender, nondistended. Bowel sounds present and normoactive. No guarding. No rebound. No organomegaly. EXTREMITIES: No clubbing, cyanosis, or edema. No joint effusion, has good ROM. No calf tenderness. L axilla - there is an indurated area about 2 inch x 1 in size, tender, with a small area of redness almost at the center. NEUROLOGICAL: Non-focal PSYCHIATRIC: Normal affect, calm and cooperative. LINE: No evidence of infection Assessment & Plan Remarks IMPRESSION Fever, patient with newly Dx leukemia, monocytic - temps better - has possible follicultis or hidradenitis L axilla, better - has tubes to R ear for infection - has new pulmonary infiltrates, ?infection, ?hemorrhage New bilateral infiltrates - BNP 300+ - echo good LV function RECOMMENDATION Continue vanco and Cefepime Continue Levaquin Pulmonary evaluating patient - will likely need bronch for diagnosis Follow temps Sputum G/S C/S - patient bringing up some phlegm now Follow C/S Monitor progress D/W H [place] PACHECO I will be OOT 05/19-05/27 Other ID covering in my absence Susie Garcia MD May 18, 2017 10:07
[2017-05-18] MEDS: diphenhydrAMINE HCL 25 MG CAP PO PRN (10:26)
[2017-05-18] MEDS: ACETAMINOPHEN 325 MG TAB PO PRN (10:26)
--- NOTE | 2017-05-18 10:46 | PD.ONC.PN ---
Subjective Subjective Remarks Afebrile overnight. patient resting in bed in nad. Coughing up blood tinged with sputum. No appetite. No BM in 2 days. Objective Data Date Time Temp Pulse Resp B/P Pulse Ox O2 Delivery O2 Flow Rate FiO2 05/18/17 09:19 95 Nasal Cannula 3.50 05/18/17 08:00 96.5 106 18 134/60 95 05/18/17 04:20 92 4.00 05/18/17 04:09 97.6 95 18 137/70 92 05/18/17 00:00 97.3 91 18 117/66 92 05/17/17 20:02 92 05/17/17 20:00 96.7 99 18 137/87 97 05/17/17 18:15 96 Nasal Cannula 4.00 05/17/17 16:00 97.0 100 18 139/74 96 05/17/17 12:00 97.7 95 18 132/70 95 05/17/17 10:46 Nasal Cannula 4.00 21 05/18/17 05/18/17 05/18/17 07:00 15:00 23:00 Intake Total 950 ml 2100 ml Output Total 400 ml 300 ml Balance 550 ml 1800 ml Result Diagram: 05/18/17 0400 05/18/17 0400 Laboratory Results Laboratory Tests Test 05/18/17 05/18/17 04:00 06:30 White Blood Count 0.6 TH/MM3 Red Blood Count 2.00 MIL/MM3 Hemoglobin 6.4 GM/DL Hematocrit 19.2 % Mean Corpuscular Volume 96.1 FL Mean Corpuscular Hemoglobin 32.1 PG Mean Corpuscular Hemoglobin 33.4 % Concent Red Cell Distribution Width 21.5 % Platelet Count 45 TH/MM3 Mean Platelet Volume 7.7 FL Neutrophils (%) (Auto) % Lymphocytes (%) (Auto) % Monocytes (%) (Auto) % Eosinophils (%) (Auto) % Basophils (%) (Auto) % Neutrophils # (Auto) TH/MM3 Lymphocytes # (Auto) TH/MM3 Monocytes # (Auto) TH/MM3 Eosinophils # (Auto) TH/MM3 Basophils # (Auto) TH/MM3 CBC Comment AUTO DIFF Differential Total Cells 50 Counted Neutrophils % (Manual) 18 % Band Neutrophils % 2 % Lymphocytes % 36 % Monocytes % 44 % Neutrophils # (Manual) 0.1 TH/MM3 Differential Comment FINAL DIFF MANUAL Platelet Estimate LOW Platelet Morphology Comment NORMAL Ovalocytes 1+ Sodium Level 143 MEQ/L Potassium Level 4.1 MEQ/L Chloride Level 109 MEQ/L Carbon Dioxide Level 24.6 MEQ/L Anion Gap 9 MEQ/L Blood Urea Nitrogen 23 MG/DL Creatinine 0.64 MG/DL Estimat Glomerular Filtration 126 ML/MIN Rate Random Glucose 199 MG/DL Calcium Level 7.4 MG/DL Protein Corrected Calcium 8.2 MG/DL Total Protein 5.6 GM/DL Blood Type A POSITIVE Antibody Screen NEGATIVE Crossmatch Irradiated/Leukocyte-Reduced RBC Blood Bank Comment Culture Results Microbiology Date/Time Procedure Status Source Growth 05/18/17 02:30 Legionella Antigen - Final Complete Urine Clean Catch PRESUMPTIVE NEGATIVE FOR LEGIONELLA P... 05/18/17 02:30 Streptococcus pneumoniae Antigen (M - Final Complete Urine Clean Catch PRESUMPTIVE NEGATIVE FOR STREPTOCOCCU... Administered Medications Medications (Trade) Dose Ordered Sig/Maritza Route PRN Reason Start Time Stop Time Status Last Admin Dose Admin Sodium Chloride (NS Flush) 2 ml UNSCH PRN IV FLUSH FLUSH AFTER USING IV ACCESS 05/10/17 15:00 05/15/17 03:47 Sodium Chloride (NS Flush) 2 ml BID IV FLUSH 05/10/17 21:00 05/15/17 21:02 Acetaminophen (Tylenol) 650 mg Q4H PRN PO TEMP > 100.4 OR PREMEDICATION FOR BLOOD PRODUCT 05/10/17 15:00 05/18/17 10:26 Senna/Docusate Sodium (Cinthia-Colace) 1 tab BID PO 05/10/17 21:00 05/18/17 08:54 Amlodipine Besylate (Norvasc) 5 mg DAILY PO 05/11/17 09:00 Hold 05/14/17 10:17 Atorvastatin Calcium (Lipitor) 20 mg DAILY PO 05/11/17 09:00 05/18/17 08:54 Lisinopril 20 mg 20 mg DAILY PO 05/11/17 09:00 05/18/17 08:54 Cefepime HCl/ Sodium Chloride (Maxipime Inj/NS Inj) 100 ml @ 200 mls/hr Q12H IV 05/11/17 08:00 05/18/17 08:55 Oxycodone HCl 5 mg 5 mg Q4H PRN PO PAIN SCALE 3 TO 5 05/11/17 12:00 05/12/17 01:23 Vancomycin HCl/ Sodium Chloride (Vancomycin Inj/ NS 500 ml Inj) 515 ml @ 250 mls/hr Q12H IV 05/13/17 12:00 05/17/17 23:24 Metoprolol Tartrate (Lopressor) 75 mg BID PO 05/14/17 21:00 05/18/17 08:54 Sodium Chloride (NS Flush) 5 ml DAILY IV FLUSH 05/15/17 09:00 05/18/17 09:48 Heparin Sodium (Porcine) (Heparin Central Flush) 500 units DAILY IV FLUSH 05/15/17 09:00 05/15/17 10:30 Sodium Chloride (NS Flush) 5 ml UNSCH PRN IV FLUSH SEE PROTOCOL TABLE 05/14/17 23:30 05/15/17 03:47 Heparin Sodium (Porcine) (Heparin Central Flush) 500 units UNSCH PRN IV FLUSH SEE PROTOCOL TABLE 05/14/17 23:30 05/15/17 03:47 Granisetron HCl (Kytril Inj) 1 mg DAILY IV 05/15/17 12:30 05/21/17 09:01 05/18/17 09:44 Dexamethasone Sodium Phosphate 20 mg 20 mg DAILY IV 05/15/17 12:30 05/21/17 09:01 05/18/17 09:44 Cytarabine 241 mg/ Sodium Chloride 500 ml @ 20.833 mls/ hr Q24H IV 05/15/17 14:00 05/22/17 13:59 05/17/17 23:14 Sodium Chloride (NS 1000 ml Inj) 1,000 ml @ 30 mls/hr Q24H IV 05/15/17 12:00 05/18/17 06:11 Levofloxacin (Levaquin) 750 mg DAILY PO 05/15/17 14:00 05/18/17 08:54 Diphenhydramine HCl (Benadryl) 25 mg Q4H PRN PO PRE-MEDICATE FOR BLOOD PRODUCT 05/15/17 15:30 05/18/17 10:26 Furosemide (Lasix Inj) 40 mg DAILY IV PUSH 05/18/17 09:00 05/18/17 09:44 Objective Remarks GENERAL: Middle aged male, upright in bed in [facility]. SKIN: Warm and dry. HEAD: Normocephalic. EYES: No injection or drainage. NECK: Supple, trachea midline. CARDIOVASCULAR: Regular rate and rhythm RESPIRATORY: occasional rhonchi. On 3.5 L O2 via nc GASTROINTESTINAL: Abdomen soft, non-tender, nondistended. EXTREMITIES: No cyanosis, no edema NEUROLOGICAL: awake and alert, normal speech. moving all extremities Assessment/Plan Problem List: (1) Acute myelomonocytic leukemia Status: Acute Plan: --flow cytometry indicates acute myelomonocytic leukemia --s/p souza catheter placement 05/14: Souza catheter placement and echo--EF=55-60% 05/15: Day 1 Induction chemotherapy with SHABANA-C/Idarubicin 05/16: D2. no transfusion today. tolerating chemotherapy 05/17: D3. no transfusion. continue chemo. pulmonology consulted for hemoptysis. may need bronch 05/18: D4. 1 unit pRBC. continue chemo. (2) Neutropenic fever Status: Acute Plan: --ID following --on Vanco, Cefepime, and Levaquin --CXR shows diffuse parenchymal opacities. CT chest shows bilateral alveolar infiltrates consistent with pulmonary edema --BC no growth (3) Hyperbilirubinemia Status: Acute Plan: --combination of direct and indirect elevated. --unclear etiology --will obtain hepatitis panel, monitor (4) Respiratory insufficiency Status: Acute Plan: --CXR shows worsening aeration. --pulmonology following --CT chest shows alveolar infiltrates. --on duonebs PRN --Lasix PRN Assessment 66y/o male with newly diagnosed AML. Plan 1. continue induction chemotherapy 2. monitor CBC 3. 1 unit pRBC, check H/H after transfusion 4. continue antibiotics. UPDATE: around 2PM patient accidently pulled out souza catheter while receiving SHABANA-C. I called and spoke with invasive radiology and asked them to evaluate and place another line. Attending Statement The exam, history, and the medical decision-making described in the above note were completed with the assistance of the mid-level provider. I reviewed and agree with the findings presented. I attest that I had a [id number] encounter with the patient on the same day, and personally performed and documented my assessment and findings in the medical record. Pt seen and examined after Osuza replaced. Site looks good. Pt still SOB but moving about is room. Hold second unit of blood until AM CBC. Continue chemotherapy- induction 7+3. Pt tolerating chemo well so far. Continue diuresis, pharmacy to minimize volume for antibiotics. Continue support. Pulmonary monitoring infiltrates, negative culture so far. Dr. Diez to return on Sunday. Problem Qualifiers (1) Acute myelomonocytic leukemia: Qualified Code: C92.50 - Acute myelomonocytic leukemia not having achieved remission Nettie Lutz May 18, 2017 10:45 Neva Palmer MD May 19, 2017 10:03
--- NOTE | 2017-05-18 11:00 | HHI.PR ---
Subjective Remarks The patient was sitting up in bed. He said he was still coughing up bloody sputum at times. He said overall his breathing was okay. He was about to work with physical therapy. He had no acute complaints. Objective Vitals Vital Signs Date Time Temp Pulse Resp B/P Pulse Ox O2 Delivery O2 Flow Rate FiO2 05/18/17 09:19 95 Nasal Cannula 3.50 05/18/17 08:00 96.5 106 18 134/60 95 05/18/17 04:20 92 4.00 05/18/17 04:09 97.6 95 18 137/70 92 05/18/17 00:00 97.3 91 18 117/66 92 05/17/17 20:02 92 05/17/17 20:00 96.7 99 18 137/87 97 05/17/17 18:15 96 Nasal Cannula 4.00 05/17/17 16:00 97.0 100 18 139/74 96 05/17/17 12:00 97.7 95 18 132/70 95 I/O 05/17/17 05/17/17 05/17/17 05/18/17 05/18/17 05/18/17 07:00 15:00 23:00 07:00 15:00 23:00 Intake Total 1225 ml 600 ml 240 ml 950 ml 2100 ml Output Total 1150 ml 1600 ml 1300 ml 400 ml 300 ml Balance 75 ml -1000 ml -1060 ml 550 ml 1800 ml Intake Oral 600 ml 240 ml 950 ml IV Total 1225 ml 2100 ml Output Urine Total 1150 ml 1600 ml 1300 ml 400 ml 300 ml # Bowel Movements 0 Result Diagram: 05/18/17 0400 05/18/17 0400 Imaging Last Impressions Chest X-Ray 05/17/17 0000 Signed Impressions: Service Date/Time: April 08:43 - CONCLUSION: Worsening aeration. Emerson Carrasquillo MD Chest CT 05/17/17 0000 Signed Impressions: Service Date/Time: April 17:53 - CONCLUSION: 1. Bilateral alveolar infiltrates most characteristic of pulmonary edema. 2. Small to moderate bilateral pleural effusions. 3. Small amount of pericardial fluid. 4. Coronary artery calcifications. 5. Prominent left lobe of the thyroid with low attenuation nodular area. Braxton Tidwell MD Catheter Placement X-Ray 05/14/17 0000 Signed Impressions: Service Date/Time: Sunday, May 14, 2017 14:14 - CONCLUSION: Uncomplicated Jang catheter placement as above. Parker Dempsey MD Bone Biopsy CT 05/11/17 1309 Signed Impressions: Service Date/Time: Thursday, May 11, 2017 15:10 - CONCLUSION: 1. Uncomplicated CT guided bone marrow aspirate. 2. Uncomplicated CT guided bone marrow biopsy. Ryan Hoover MD FACR Soft Tissue Ultrasound 05/11/17 0000 Signed Impressions: Service Date/Time: Thursday, May 11, 2017 08:27 - CONCLUSION: Negative for abscess. Edematous changes in the soft tissues of the left axilla. Hank Nixon MD Objective Remarks GENERAL: This is a well-nourished, well-developed patient, in no apparent distress. EYES: Extraocular motions intact. No scleral icterus. No injection or drainage. ENT: Nose without drainage. NECK: Trachea midline. CARDIOVASCULAR: Irregularly irregular. RESPIRATORY: Clear to auscultation. Breath sounds equal bilaterally. No wheezes. GASTROINTESTINAL: Abdomen soft, non-tender, nondistended. No palpable masses. No guarding. MUSCULOSKELETAL: Extremities without edema. No joint tenderness, effusion, or edema noted. Left axilla with area of induration under axilla, no pus or drainage, some erythema noted, tender to palpation. NEUROLOGICAL: Awake and alert. Cranial nerves II through XII intact. Motor and sensory grossly within normal limits. Normal speech. Heart of hearing, reads lips. PSYCH: Mood and affect appropriate. Medications and IVs Current Medications Medications (Trade) Dose Ordered Sig/Maritza Route Start Time Stop Time Status Last Admin (NS Flush) 2 ml UNSCH PRN IV FLUSH 05/10/17 15:00 05/15/17 03:47 (NS Flush) 2 ml BID IV FLUSH 05/10/17 21:00 05/15/17 21:02 (Tylenol) 650 mg Q4H PRN PO 05/10/17 15:00 05/18/17 10:26 (Zofran Inj) 4 mg Q6H PRN IVP 05/10/17 15:00 (Cinthia-Colace) 1 tab BID PO 05/10/17 21:00 05/18/17 08:54 (Milk Of Magnesia Liq) 30 ml Q12H PRN PO 05/10/17 15:00 (Senokot) 17.2 mg Q12H PRN PO 05/10/17 15:00 (Dulcolax Supp) 10 mg DAILY PRN RECTAL 05/10/17 15:00 (Lactulose Liq) 30 ml DAILY PRN PO 05/10/17 15:00 (Norvasc) 5 mg DAILY PO 05/11/17 09:00 Hold 05/14/17 10:17 (Lipitor) 20 mg DAILY PO 05/11/17 09:00 05/18/17 08:54 Lisinopril 20 mg 20 mg DAILY PO 05/11/17 09:00 05/18/17 08:54 (Maxipime Inj/NS Inj) 100 ml @ 200 mls/hr Q12H IV 05/11/17 08:00 05/18/17 08:55 (Roxicodone) 5 mg Q4H PRN PO 05/11/17 12:00 05/12/17 01:23 Oxycodone HCl 10 mg 10 mg Q6H PRN PO 05/11/17 12:00 Pharmacy Profile Note 0 ml @ 0 mls/hr UNSCH OTHER 05/13/17 08:45 (Vancomycin Inj/ NS 500 ml Inj) 515 ml @ 250 mls/hr Q12H IV 05/13/17 12:00 05/17/17 23:24 (Lopressor) 75 mg BID PO 05/14/17 21:00 05/18/17 08:54 (Pill Splitter) 1 ea UNSCH PRN OTHER 05/14/17 12:15 (NS Flush) 5 ml DAILY IV FLUSH 05/15/17 09:00 05/18/17 09:48 (Heparin Central Flush) 500 units DAILY IV FLUSH 05/15/17 09:00 05/15/17 10:30 (NS Flush) 5 ml UNSCH PRN IV FLUSH 05/14/17 23:30 05/15/17 03:47 (Heparin Central Flush) 500 units UNSCH PRN IV FLUSH 05/14/17 23:30 05/15/17 03:47 (NS Flush) 5 ml UNSCH PRN IV FLUSH 05/14/17 23:30 (Kytril Inj) 1 mg DAILY IV 05/15/17 12:30 05/21/17 09:01 05/18/17 09:44 Dexamethasone Sodium Phosphate 20 mg 20 mg DAILY IV 05/15/17 12:30 05/21/17 09:01 05/18/17 09:44 Cytarabine 241 mg/ Sodium Chloride 500 ml @ 20.833 mls/ hr Q24H IV 05/15/17 14:00 05/22/17 13:59 05/17/17 23:14 (NS 1000 ml Inj) 1,000 ml @ 30 mls/hr Q24H IV 05/15/17 12:00 05/18/17 06:11 (Levaquin) 750 mg DAILY PO 05/15/17 14:00 05/18/17 08:54 (Benadryl) 25 mg Q4H PRN PO 05/15/17 15:30 05/18/17 10:26 (D50w (Vial) Inj) 25 ml UNSCH PRN IV PUSH 05/17/17 11:30 (Glucagon Inj) 1 mg UNSCH PRN OTHER 05/17/17 11:30 (Lasix Inj) 40 mg DAILY IV PUSH 05/18/17 09:00 05/18/17 09:44 A/P Problem List: (1) Pancytopenia ICD Code: D61.818 Status: Acute (2) Macrocytic anemia ICD Code: D53.9 Status: Acute (3) Alcohol abuse ICD Code: F10.10 Status: Acute (4) S/P tympanic tube insertion ICD Code: Z96.22 Status: Acute Assessment and Plan Acute myelomonocytic anemia Medical oncology following, suspecting myeloproliferative neoplasm/CMML. HIV negative. S/p bone marrow biopsy. Pathology revealed acute myelomonocytic leukemia. - follow CBC and transfuse per hematology. - chemotherapy started 05/14. - continue steroids. - trend labs and transfuse as needed. Neutropenic fever/ Left axillary cellulitis US axilla negative for abscess. CXR and UA unremarkable. ID consult appreciated. Repeat chest x-ray with diffuse parenchymal opacities, worsening aeration. - continue IV vancomycin and cefepime. Levaquin added. - follow up with ID. - follow cultures. Acute respiratory failure Pneumonia noted on x-ray. On 4L NC. Echo with normal EF. Coughs up bloody sputum. Pulmonology consult appreciated. CT chest with alveolar infiltrates consistent with pulmonary edema. - oxygen and nebs as needed. - Antibiotics as above. - Diuresis as needed. - follow up with pulmonology. HTN Currently stable. - continue home medications lisinopril, and metoprolol. Amlodipine on hold as Lopressor is being uptitrated. Afib Rate elevated at times. Exacerbated by infection. - Monitor tele. - Hold Eliquis for now due to pancytopenia. - increased Lopressor to 75 mg BID. Increase as needed. Ear pain S/p tympanic tube placement by ENT for chronic ear infection. - continue antibiotics. - outpt follow up. Alcohol abuse Chronic. - Withdrawal precautions: sz and fall precaution in place. - Encouraged to quit. - on CIWA protocol if needed. Hyperglycemia S/t dexamethasone. - cover with insulin sliding scale. PPx: SCDs Discharge Planning Awaiting clinical improvement Braxton Carbajal DO May 18, 2017 11:00
[2017-05-18] MEDS ORDERED: SODIUM CHLOR 0.9% 250 ML INJ 250 ML IV ONE (14:15)
[2017-05-18] MEDS ORDERED: ACETAMINOPHEN 325 MG TAB PO PRN (14:15)
[2017-05-18] MEDS ORDERED: diphenhydrAMINE HCL 25 MG CAP PO PRN (14:15)
--- NOTE | 2017-05-18 15:13 | RADRPT ---
EXAM DATE/TIME: 05/18/2017 14:54 [facility] COMPARISON: No previous studies available for comparison. INDICATIONS : Jang Catheter traumatically removed. Shortness of breath. MEDICAL HISTORY : Hypercholesterolemia. Hypertension. Arthritis. Afib. Hyperlipidemia. Dyspnea. SURGICAL HISTORY : Tonsillectomy. Tonsillectomy. Appendectomy. Hernia repair. Left knee arthroscopy. ENCOUNTER: Subsequent ACUITY: 1 week PAIN SCORE: 0/10 LOCATION: Bilateral chest FINDINGS: Persistent interstitial and alveolar opacities remain in both lungs. Heart is minimally enlarged. T here is no pleural effusion. Degenerative thoracic spine. CONCLUSION: Stable parenchymal opacity in both lungs. Ryan Hoover MD FACR on May 18, 2017 at 15:10 Board Certified Radiologist. This report was verified electronically.
[2017-05-18] MEDS ORDERED: LORazepam 2 MG/ML VIAL ONE (15:59)
[2017-05-18] MEDS ORDERED: LIDOCAINE 1%/EPINEPHrine 1:100,000 SOLN 20 ML VIAL ONE (16:11)
[2017-05-18] MEDS: VANCOMYCIN INJ 1,500 MG in SODIUM CHLORID 0.9% 500 ML INJ 500 ML IV SCH (17:22)
--- NOTE | 2017-05-18 17:24 | RADRPT ---
EXAM DATE/TIME: 05/18/2017 16:40 [facility] COMPARISON: No previous studies available for comparison. INDICATIONS : Patient is in need of placement of a Jang catheter due to catheter being pulled out. MEDICAL HISTORY : History of leukemia, pancytopenia, anemia, chronic ear infection, HTN, AFIB, hyperlipiodemia, ETOH ab use, neutropenic fever, hyperbilirubinemia, respiratory insufficiency. SURGICAL HISTORY : History of hernia repair, tonsillectomy, left knee replacement, tunneled Jang catheter placement, tympanic tube insertion. ENCOUNTER: Subsequent ACUITY: 1 week PAIN SCORE: 0/10 FLUORO TIME: 0.92 minutes IMAGE SERIES: 1 ACCESS: Right internal jugular vein SEDATION: 1.) 1 mg lorazepam (Ativan) IV 2.) 75 mcg fentanyl (Sublimaze) IV Prophylactic antibiotics were administered with appropriate pre-procedure timing. Vancomycin within 2 hours of procedure, Ancef (or alternative) within 1 hour of procedure. Intra-procedural antibiotics were given as prescribed above. DEVICE: 1. Jang catheter 9Fr dual lumen PROCEDURE : 1. Ultrasound-guided puncture of the prescribed vein. 2. Fluoroscopic guidance. 3. Jang catheter placement 4. Conscious sedation with continuous EKG and oximetry monitoring. The risks, benefits and alternatives to the procedure were explained and verbal and written consent w as obtained. The site was prepped in sterile fashion. Full sterile technique was used, including ca p, mask, sterile gloves and gown and a large sterile sheet. Hand hygiene and 2% chlorhexidine Betadi ne was utilized per protocol for cutaneous antisepsis with appropriate dry time for site. The skin a nd subcutaneous tissues were infiltrated with local anesthetic solution. With ultrasound and fluoroscopic guidance a dermatotomy was created in the supraclavicular region. A micropuncture set was used to access to the prescribed vein and serial dilatation was performed to a ccept a Jang catheter. A subcutaneous tunnel was created and in antegrade fashion the catheter wa s pulled through the tunnel, cut to the appropriate length and place through the sheath. The cathete r was locked with heparin and sutured in place. Conscious sedation was performed with the prescribed dosages and duration as above in the presence of an independent trained radiology nurse to assist in the monitoring of the patient. EKG and oximetry remained stable throughout the procedure. The patient tolerated the procedure well and there were no complications. The patient was sent to post anesthesia recovery in stable condition. CONCLUSION: Uncomplicated ultrasound and fluoroscopic guided dual lumen Jang catheter implantation as describe dRose Carrasquillo MD on May 18, 2017 at 17:21 Board Certified Radiologist. This report was verified electronically.
[2017-05-18 17:54] LABS: HEMATOCRIT 26.3 % (39.0-51.0)
--- NOTE | 2017-05-18 17:56 | PD.RAD ---
Post Procedure Progress Note Pre Procedure Diagnosis: (1) AML M5 (acute monocytic leukemia) Post Procedure Diagnosis: (1) AML M5 (acute monocytic leukemia) Procedure Date: May 18, 2017 Supervising Radiologist: Emerson Carrasquillo Proceduralist/Assist: RT Rogelio(R) Anesthesia: Local, Conscious Sedation Plan of Activity Patient to Unit: Nursing Unit Patient Condition: Good See PACS Report for procedural detail/treatment Central Venous Access Device Procedure 1 Right Internal Jugular Tunneled Central Line Placement dual lumen [place]: 9 Emerson Carrasquillo MD May 18, 2017 17:56
[2017-05-18] MEDS ORDERED: SODIUM CHLORIDE 0.9% FLUSH 10 ML FLUSH IVF PRN (18:00)
--- NOTE | 2017-05-18 19:20 | HHI.PR ---
Subjective Remarks 66 YOWM with ac Monomyelocytik leuk, bilat infilt Minimal hemoptysis no Fever Had Jang cathetor placed Objective Vital Signs Vital Signs Date Time Temp Pulse Resp B/P Pulse Ox O2 Delivery O2 Flow Rate FiO2 05/18/17 17:23 96.6 116 20 143/96 91 05/18/17 14:28 97.0 85 20 129/68 95 05/18/17 14:00 97.0 85 16 129/68 95 05/18/17 11:53 97.9 95 16 122/75 93 05/18/17 11:25 96.9 87 16 120/79 98 05/18/17 09:19 95 Nasal Cannula 3.50 05/18/17 08:50 Nasal Cannula 4.00 05/18/17 08:00 96.5 106 18 134/60 95 05/18/17 07:51 85 05/18/17 04:20 92 4.00 05/18/17 04:09 97.6 95 18 137/70 92 05/18/17 00:00 97.3 91 18 117/66 92 05/17/17 20:02 92 05/17/17 20:00 96.7 99 18 137/87 97 I/O 05/17/17 05/17/17 05/17/17 05/18/17 05/18/17 05/18/17 07:00 15:00 23:00 07:00 15:00 23:00 Intake Total 1225 ml 600 ml 240 ml 950 ml 3300 ml Output Total 1150 ml 1600 ml 1300 ml 400 ml 1650 ml Balance 75 ml -1000 ml -1060 ml 550 ml 1650 ml Intake Oral 600 ml 240 ml 950 ml 1200 ml IV Total 1225 ml 2100 ml Output Urine Total 1150 ml 1600 ml 1300 ml 400 ml 1650 ml # Voids 2 # Bowel Movements 0 1 Result Diagram: 05/18/17 1730 05/18/17 0400 Objective Remarks GENERAL: WMWN WM, NAD SKIN: Warm and dry. HEAD: Normocephalic. EYES: No scleral icterus. No injection or drainage. NECK: Supple, trachea midline. No JVD or lymphadenopathy. CARDIOVASCULAR: Regular rate and rhythm without murmurs, gallops, or rubs. RESPIRATORY: Breath sounds equal bilaterally. No accessory muscle use. GASTROINTESTINAL: Abdomen soft, non-tender, nondistended. MUSCULOSKELETAL: No cyanosis, or edema. BACK: Nontender without obvious deformity. No CVA tenderness. A/P Assessment and Plan Bilat Infilt Pleural effusion mild Hemoptysis Ac Monomyelocytic Leukemia Pancytopenia PLAN" Cont Abx per ID monitor pl fluid CBC Supplement 02 Donald Mayo MD May 18, 2017 19:20
[2017-05-18 21:09] LABS: MEAN CORPUSCULAR HGB CONC 37.5 % (32.0-36.0)
[2017-05-19] VITALS (11 sets, daily range): BP systolic 119–146; BP diastolic 75–89; PULSE 80–98; RESP 16–18; TEMP 96.2–98.8; O2SAT 92–99
[2017-05-19] MEDS: SODIUM CHLORID 0.9% IV SCH (03:52)
[2017-05-19] MEDS: SODIUM CHLOR 0.9% 1000 ML INJ 1,000 ML IV SCH (03:52)
[2017-05-19] MEDS: CYTARABINE IV SCH (03:52)
[2017-05-19] MEDS: VANCOMYCIN INJ 1,500 MG in SODIUM CHLOR 0.9% 250 ML INJ 250 ML IV SCH ×2 (05:32→17:09)
[2017-05-19 06:05] LABS: BICARBONATE 25.5 MEQ/L (21.0-32.0); POTASSIUM 4.3 MEQ/L (3.5-5.1)
[2017-05-19] MEDS: INSULIN ASPART SUPPLEMENTAL SCALE SQ SCH ×4 (06:40→21:01)
[2017-05-19 07:20] LABS: MEAN CELL VOLUME 93.4 FL (80.0-100.0); MEAN CORPUSCULAR HEMOGLOBIN 35.1 PG (27.0-34.0); PLATELET COUNT 43 TH/MM3 (150-450); RED BLOOD COUNT 2.02 MIL/MM3 (4.50-5.90); RED CELL DISTRIBUTION WIDTH 21.4 % (11.6-17.2); WHITE BLOOD COUNT 0.2 TH/MM3 (4.0-11.0)
[2017-05-19 07:50] LABS: HEMO FLAGS AUTO DIFF
[2017-05-19 07:51] LABS: HEMATOCRIT 18.8 % (39.0-51.0)
[2017-05-19] MEDS: CEFEPIME INJ 2,000 MG in SODIUM CHLORIDE 0.9% INJ 100 ML IV SCH ×2 (08:39→20:52)
[2017-05-19] MEDS: DEXAMETHASONE SOD PHOS 20 MG/5 ML VIAL IV SCH (08:40)
[2017-05-19] MEDS: FUROSEMIDE 40 MG/4 ML VIAL IV PUSH SCH (08:40)
[2017-05-19] MEDS: GRANISETRON HCL 1 MG/ML VIAL IV SCH (08:43)
[2017-05-19] MEDS: METOPROLOL TARTRATE 50 MG TAB PO SCH ×2 (08:47→20:53)
[2017-05-19] MEDS: LEVOFLOXACIN 750 MG TAB PO SCH (08:47)
[2017-05-19] MEDS: SODIUM CHLORIDE 0.9% FLUSH 10 ML FLUSH IV FLUSH SCH ×2 (08:48→21:00)
[2017-05-19] MEDS: SODIUM CHLORIDE 0.9% FLUSH 10 ML FLUSH IVF SCH (08:48)
[2017-05-19] MEDS: DOCUSATE SODIUM 50 MG/SENNA 8.6 MG TAB PO SCH ×2 (08:48→20:53)
[2017-05-19] MEDS: LISINOPRIL 20 MG TAB PO SCH (08:48)
[2017-05-19] MEDS: ATORVASTATIN 20 MG TAB PO SCH (08:48)
[2017-05-19] MEDS ORDERED: diphenhydrAMINE HCL 25 MG CAP PO PRN (09:45)
[2017-05-19] MEDS ORDERED: ACETAMINOPHEN 325 MG TAB PO PRN (09:45)
[2017-05-19] MEDS ORDERED: SODIUM CHLOR 0.9% 250 ML INJ 250 ML IV ONE (09:45)
[2017-05-19 10:23] LABS: OVALOCYTES 1+ (NORMAL); POLYS (SEG NEUTROPHILS) 5 % (16-70); WBC DIFF SAMPLE 20
[2017-05-19 10:24] LABS: PLATELET ESTIMATE SMEAR LOW (NORMAL); PLATELET MORPHOLOGY NORMAL (NORMAL); SCAN/DIFF FINAL DIFF MANUAL
--- NOTE | 2017-05-19 10:38 | PD.ONC.PN ---
Subjective Subjective Remarks Afebrile overnight No major complaints Tolerating chemotherapy OK with mild occasional nausea Denies shortness of breath or chest pain Objective Data Date Time Temp Pulse Resp B/P Pulse Ox O2 Delivery O2 Flow Rate FiO2 05/19/17 10:12 96 Nasal Cannula 3.50 05/19/17 08:51 Nasal Cannula 4.00 21 05/19/17 08:30 97.6 95 18 143/76 95 05/19/17 04:00 96.8 91 18 119/75 92 05/19/17 00:00 97.2 96 18 133/77 92 05/18/17 20:40 Nasal Cannula 3.50 21 05/18/17 20:02 101 05/18/17 20:00 98.3 103 20 120/66 93 05/18/17 17:23 96.6 116 20 143/96 91 05/18/17 14:28 97.0 85 20 129/68 95 05/18/17 14:00 97.0 85 16 129/68 95 05/18/17 11:53 97.9 95 16 122/75 93 05/18/17 11:25 96.9 87 16 120/79 98 05/19/17 05/19/17 05/19/17 07:00 15:00 23:00 Intake Total 720 ml Output Total 950 ml 1650 ml Balance -230 ml -1650 ml Result Diagram: 05/19/17 0420 05/19/17 0420 Laboratory Results Laboratory Tests Test 05/18/17 05/18/17 05/19/17 14:49 17:30 04:20 Blood Type A POSITIVE Crossmatch Irradiated/Leukocyte-Reduced RBC Blood Bank Comment Hemoglobin 9.0 GM/DL 7.1 GM/DL Hematocrit 26.3 % 18.8 % White Blood Count 0.2 TH/MM3 Red Blood Count 2.02 MIL/MM3 Mean Corpuscular Volume 93.4 FL Mean Corpuscular Hemoglobin 35.1 PG Mean Corpuscular Hemoglobin 37.5 % Concent Red Cell Distribution Width 21.4 % Platelet Count 43 TH/MM3 Mean Platelet Volume 7.9 FL Neutrophils (%) (Auto) % Lymphocytes (%) (Auto) % Monocytes (%) (Auto) % Eosinophils (%) (Auto) % Basophils (%) (Auto) % Neutrophils # (Auto) TH/MM3 Lymphocytes # (Auto) TH/MM3 Monocytes # (Auto) TH/MM3 Eosinophils # (Auto) TH/MM3 Basophils # (Auto) TH/MM3 CBC Comment AUTO DIFF Differential Total Cells 20 Counted Neutrophils % (Manual) 5 % Lymphocytes % 90 % Monocytes % 5 % Neutrophils # (Manual) 0.0 TH/MM3 Differential Comment FINAL DIFF MANUAL Platelet Estimate LOW Platelet Morphology Comment NORMAL Ovalocytes 1+ Sodium Level 138 MEQ/L Potassium Level 4.3 MEQ/L Chloride Level 106 MEQ/L Carbon Dioxide Level 25.5 MEQ/L Anion Gap 7 MEQ/L Blood Urea Nitrogen 28 MG/DL Creatinine 0.55 MG/DL Estimat Glomerular Filtration 149 ML/MIN Rate Random Glucose 212 MG/DL Calcium Level 7.9 MG/DL Culture Results Microbiology Date/Time Procedure Status Source Growth 05/18/17 02:30 Legionella Antigen - Final Complete Urine Clean Catch PRESUMPTIVE NEGATIVE FOR LEGIONELLA P... 05/18/17 02:30 Streptococcus pneumoniae Antigen (M - Final Complete Urine Clean Catch PRESUMPTIVE NEGATIVE FOR STREPTOCOCCU... 05/19/17 07:11 Gram Stain Received Sputum Expectorated Sputum Pending 05/19/17 07:11 Sputum Culture Received Sputum Expectorated Sputum Pending Administered Medications Medications (Trade) Dose Ordered Sig/Maritza Route PRN Reason Start Time Stop Time Status Last Admin Dose Admin Sodium Chloride (NS Flush) 2 ml UNSCH PRN IV FLUSH FLUSH AFTER USING IV ACCESS 05/10/17 15:00 05/15/17 03:47 Sodium Chloride (NS Flush) 2 ml BID IV FLUSH 05/10/17 21:00 05/15/17 21:02 Acetaminophen (Tylenol) 650 mg Q4H PRN PO TEMP > 100.4 OR PREMEDICATION FOR BLOOD PRODUCT 05/10/17 15:00 05/18/17 10:26 Senna/Docusate Sodium (Cinthia-Colace) 1 tab BID PO 05/10/17 21:00 05/19/17 08:48 Amlodipine Besylate (Norvasc) 5 mg DAILY PO 05/11/17 09:00 Hold 05/14/17 10:17 Atorvastatin Calcium (Lipitor) 20 mg DAILY PO 05/11/17 09:00 05/19/17 08:48 Lisinopril 20 mg 20 mg DAILY PO 05/11/17 09:00 05/19/17 08:48 Cefepime HCl/ Sodium Chloride (Maxipime Inj/NS Inj) 100 ml @ 200 mls/hr Q12H IV 05/11/17 08:00 05/19/17 08:39 Oxycodone HCl (Roxicodone) 5 mg Q4H PRN PO PAIN SCALE 3 TO 5 05/11/17 12:00 05/12/17 01:23 Metoprolol Tartrate (Lopressor) 75 mg BID PO 05/14/17 21:00 05/19/17 08:47 Granisetron HCl (Kytril Inj) 1 mg DAILY IV 05/15/17 12:30 05/21/17 09:01 05/19/17 08:43 Dexamethasone Sodium Phosphate 20 mg 20 mg DAILY IV 05/15/17 12:30 05/21/17 09:01 05/19/17 08:40 Cytarabine 241 mg/ Sodium Chloride 500 ml @ 20.833 mls/ hr Q24H IV 05/15/17 14:00 05/22/17 13:59 05/19/17 03:52 Sodium Chloride (NS 1000 ml Inj) 1,000 ml @ 30 mls/hr Q24H IV 05/15/17 12:00 05/19/17 03:52 Levofloxacin (Levaquin) 750 mg DAILY PO 05/15/17 14:00 05/19/17 08:47 Diphenhydramine HCl (Benadryl) 25 mg Q4H PRN PO PRE-MEDICATE FOR BLOOD PRODUCT 05/15/17 15:30 05/18/17 10:26 Furosemide 40 mg 40 mg DAILY IV PUSH 05/18/17 09:00 05/19/17 08:40 Vancomycin HCl/ Sodium Chloride (Vancomycin Inj/ NS 250 ml Inj) 265 ml @ 132.5 mls/ hr Q12H IV 05/19/17 05:00 05/19/17 05:32 Objective Remarks GENERAL: Older male, resting in bed in no distress. SKIN: Warm and dry. HEAD: Normocephalic. EYES: No injection or drainage. NECK: Supple, trachea midline. CARDIOVASCULAR: + S1/S2. RESPIRATORY: Clear anteriorly. Breathing unlabored. On 3L O2 via nc. GASTROINTESTINAL: Abdomen soft, non-tender, nondistended. EXTREMITIES: No cyanosis, no edema. NEUROLOGICAL: Awake and alert, normal speech. Moving all extremities Assessment/Plan Problem List: (1) Acute myelomonocytic leukemia Status: Acute Plan: --flow cytometry indicates acute myelomonocytic leukemia --s/p jang catheter placement 05/14: Jang catheter placement and echo--EF=55-60% 05/15: Day 1 Induction chemotherapy with SHABANA-C/Idarubicin 05/16: D2. no transfusion today. tolerating chemotherapy 05/17: D3. no transfusion. continue chemo. pulmonology consulted for hemoptysis. may need bronch 05/18: D4. 1 unit pRBC. continue chemo. 05/19: D5 1 unit packed red blood cells. Continue chemotherapy. (2) Neutropenic fever Status: Acute Plan: --ID following --on Vanco, Cefepime, and Levaquin --CXR shows diffuse parenchymal opacities. CT chest shows bilateral alveolar infiltrates consistent with pulmonary edema --BC no growth (3) Hyperbilirubinemia Status: Acute Plan: --combination of direct and indirect elevated. --unclear etiology --will obtain hepatitis panel, monitor (4) Respiratory insufficiency Status: Acute Plan: --CXR shows worsening aeration. --pulmonology following --CT chest shows alveolar infiltrates. --on duonebs PRN --Lasix PRN Assessment 66y/o male with newly diagnosed AML. Plan 1. Transfuse one unit irradiated packed cells today for hemoglobin 7.1. 2. Monitor CBC. 3. Continue induction chemotherapy 4. continue antibiotics. Attending Statement The exam, history, and the medical decision-making described in the above note were completed with the assistance of the mid-level provider. I reviewed and agree with the findings presented. I attest that I had a [id number] encounter with the patient on the same day, and personally performed and documented my assessment and findings in the medical record. Tolerating chemo well. No significant side effect. Afebrile. ANC is now 0. Counts trending lower, will transfuse PRBC today. Continue supportive care. Problem Qualifiers (1) Acute myelomonocytic leukemia: Qualified Code: C92.50 - Acute myelomonocytic leukemia not having achieved remission Patience Renner May 19, 2017 10:38 Dm Sandra MD May 19, 2017 11:28
[2017-05-19] MEDS: diphenhydrAMINE HCL 25 MG CAP PO PRN (10:45)
[2017-05-19] MEDS: ACETAMINOPHEN 325 MG TAB PO PRN (10:45)
--- NOTE | 2017-05-19 12:00 | HHI.PR ---
Subjective Remarks Follow-up for leukemia No fever overnight, no complaints. Hard of hearing. No burning sensation when urinating, no diarrhea, still coughing but unchanged, mild shortness of breath unchanged. Tunneled catheter replaced yesterday. Good urine output. Objective Vitals Vital Signs Date Time Temp Pulse Resp B/P Pulse Ox O2 Delivery O2 Flow Rate FiO2 05/19/17 10:57 98.6 91 16 146/86 95 05/19/17 10:53 98.4 98 16 129/81 95 05/19/17 10:12 96 Nasal Cannula 3.50 05/19/17 08:51 Nasal Cannula 4.00 21 05/19/17 08:30 97.6 95 18 143/76 95 05/19/17 04:00 96.8 91 18 119/75 92 05/19/17 00:00 97.2 96 18 133/77 92 05/18/17 20:40 Nasal Cannula 3.50 21 05/18/17 20:02 101 05/18/17 20:00 98.3 103 20 120/66 93 05/18/17 17:23 96.6 116 20 143/96 91 05/18/17 14:28 97.0 85 20 129/68 95 05/18/17 14:00 97.0 85 16 129/68 95 I/O 05/18/17 05/18/17 05/18/17 05/19/17 05/19/17 05/19/17 07:00 15:00 23:00 07:00 15:00 23:00 Intake Total 950 ml 3300 ml 720 ml Output Total 400 ml 1650 ml 1500 ml 950 ml 1650 ml Balance 550 ml 1650 ml -1500 ml -230 ml -1650 ml Intake Oral 950 ml 1200 ml 720 ml IV Total 2100 ml Output Urine Total 400 ml 1650 ml 1500 ml 950 ml 1650 ml # Voids 2 # Bowel Movements 1 Result Diagram: 05/19/1741905/19/17419 Objective Remarks GENERAL: Not in distress. EYES: Extraocular motions intact. No scleral icterus. No injection or drainage. ENT: Nose without drainage. NECK: Trachea midline. CARDIOVASCULAR: Irregularly irregular. RESPIRATORY: Clear to auscultation. Breath sounds equal bilaterally. No wheezes. GASTROINTESTINAL: Abdomen soft, non-tender, nondistended. No palpable masses. No guarding. MUSCULOSKELETAL: Extremities without edema. No joint tenderness, effusion, or edema noted. NEUROLOGICAL: Awake and alert. Cranial nerves II through XII intact. Motor and sensory grossly within normal limits. Normal speech. Heart of hearing, reads lips. A/P Problem List: (1) Pancytopenia ICD Code: D61.818 Status: Acute (2) Macrocytic anemia ICD Code: D53.9 Status: Acute (3) Alcohol abuse ICD Code: F10.10 Status: Acute (4) S/P tympanic tube insertion ICD Code: Z96.22 Status: Acute Assessment and Plan Acute myelomonocytic anemia Medical oncology following, suspecting myeloproliferative neoplasm/CMML. HIV negative. S/p bone marrow biopsy. Pathology revealed acute myelomonocytic leukemia. - follow CBC and transfuse per hematology. Continue chemotherapy per hematology , continue steroids. Neutropenic fever/ Left axillary cellulitis US axilla negative for abscess. CXR and UA unremarkable. ID consult appreciated. Repeat chest x-ray with diffuse parenchymal opacities, worsening aeration. Continue IV vancomycin, Levaquin and cefepime. Sputum culture pending Acute respiratory failure, hemoptysis, pleural effusion - possible Pneumonia noted on x-ray. On 4L NC. Echo with normal EF. Coughs up bloody sputum. Pulmonology consult appreciated. CT chest with alveolar infiltrates consistent with pulmonary edema. Might need bronchoscopy, continue antibiotics and oxygen support. Continue diuresis with Lasix, check BMP tomorrow. Follow-up sputum culture. HTN Currently stable.Continue home medications lisinopril, and metoprolol. Amlodipine on hold as Lopressor is being uptitrated. Afib Rate elevated at times. Exacerbated by infection. - Monitor tele. Eliquis on hold for pancytopenia, continue Lopressor Ear pain S/p tympanic tube placement by ENT for chronic ear infection. - continue antibiotics. - outpt follow up. Alcohol abuse Chronic. - Withdrawal precautions: sz and fall precaution in place. - Encouraged to quit. - on CIWA protocol if needed. Hyperglycemia S/t dexamethasone. - cover with insulin sliding scale. PPx: SCDs Discharge Planning Once cleared by hematology Lisa Kidd MD May 19, 2017 12:00
[2017-05-19] MEDS: RESP: ALBUTEROL 2.5 MG/IPRATROPIUM 0.5 MG NEB (SCH) NEB ×3 (12:30→20:21)
--- NOTE | 2017-05-19 15:33 | HHI.PR ---
Subjective Remarks 66 YOWM with ac Monomyelocytik leuk, bilat infilt Minimal hemoptysis no Fever No new complaint Objective Vital Signs Vital Signs Date Time Temp Pulse Resp B/P Pulse Ox O2 Delivery O2 Flow Rate FiO2 05/19/17 11:15 97.6 91 16 130/75 95 05/19/17 10:57 98.6 91 16 146/86 95 05/19/17 10:53 98.4 98 16 129/81 95 05/19/17 10:12 96 Nasal Cannula 3.50 05/19/17 08:51 Nasal Cannula 4.00 21 05/19/17 08:30 97.6 95 18 143/76 95 05/19/17 04:00 96.8 91 18 119/75 92 05/19/17 00:00 97.2 96 18 133/77 92 05/18/17 20:40 Nasal Cannula 3.50 21 05/18/17 20:02 101 05/18/17 20:00 98.3 103 20 120/66 93 05/18/17 17:23 96.6 116 20 143/96 91 I/O 05/18/17 05/18/17 05/18/17 05/19/17 05/19/17 05/19/17 07:00 15:00 23:00 07:00 15:00 23:00 Intake Total 950 ml 3300 ml 720 ml 600 ml Output Total 400 ml 1650 ml 1500 ml 950 ml 3150 ml Balance 550 ml 1650 ml -1500 ml -230 ml -2550 ml Intake Oral 950 ml 1200 ml 720 ml 600 ml IV Total 2100 ml Output Urine Total 400 ml 1650 ml 1500 ml 950 ml 3150 ml # Voids 2 # Bowel Movements 1 Result Diagram: 05/19/170 05/19/17 0420 Objective Remarks GENERAL: WMWN WM, NAD SKIN: Warm and dry. HEAD: Normocephalic. EYES: No scleral icterus. No injection or drainage. NECK: Supple, trachea midline. No JVD or lymphadenopathy. CARDIOVASCULAR: Regular rate and rhythm without murmurs, gallops, or rubs. RESPIRATORY: Breath sounds equal bilaterally. No accessory muscle use. GASTROINTESTINAL: Abdomen soft, non-tender, nondistended. MUSCULOSKELETAL: No cyanosis, or edema. BACK: Nontender without obvious deformity. No CVA tenderness. A/P Assessment and Plan Bilat Infilt Pleural effusion mild Hemoptysis Ac Monomyelocytic Leukemia Pancytopenia PLAN" Cont Abx per ID monitor pl fluid CBC Supplement 02 Hemoptysis resolved. Donald Mayo MD May 19, 2017 15:33
[2017-05-19] MEDS ORDERED: PHARMACY ORDERED LAB ONE (16:45)
[2017-05-20] VITALS (11 sets, daily range): BP systolic 116–141; BP diastolic 67–89; PULSE 78–102; RESP 16–18; TEMP 97.1–98.5; O2SAT 90–100
[2017-05-20] MEDS: CYTARABINE IV SCH (04:45)
[2017-05-20] MEDS: SODIUM CHLORID 0.9% IV SCH (04:45)
[2017-05-20] MEDS: SODIUM CHLOR 0.9% 1000 ML INJ 1,000 ML IV SCH (05:00)
[2017-05-20] MEDS: VANCOMYCIN INJ 1,500 MG in SODIUM CHLOR 0.9% 250 ML INJ 250 ML IV SCH ×2 (05:00→16:52)
[2017-05-20 06:09] LABS: AUTOMATED NEUTROPHIL # 0.1 TH/MM3 (1.8-7.7); BASOPHIL % 0.4 % (0.0-2.0); EOSINOPHIL % 0.1 % (0.0-4.0); LYMPH % 76.5 % (9.0-44.0); LYMPHOCYTE # 0.2 TH/MM3 (1.0-4.8); MEAN CELL VOLUME 92.4 FL (80.0-100.0); MEAN CORPUSCULAR HEMOGLOBIN 33.2 PG (27.0-34.0); MEAN CORPUSCULAR HGB CONC 35.9 % (32.0-36.0); MONO % 6.8 % (0.0-8.0); NEUT % 16.2 % (16.0-70.0); PLATELET COUNT 30 TH/MM3 (150-450); RED BLOOD COUNT 2.09 MIL/MM3 (4.50-5.90); WHITE BLOOD COUNT 0.3 TH/MM3 (4.0-11.0)
[2017-05-20] MEDS: INSULIN ASPART SUPPLEMENTAL SCALE SQ SCH ×4 (06:14→21:02)
[2017-05-20 06:21] LABS: HEMO FLAGS AUTO DIFF
[2017-05-20 06:23] LABS: HEMATOCRIT 19.3 % (39.0-51.0)
[2017-05-20 06:28] LABS: BICARBONATE 28.6 MEQ/L (21.0-32.0); POTASSIUM 4.1 MEQ/L (3.5-5.1)
[2017-05-20] MEDS ORDERED: SODIUM CHLOR 0.9% 250 ML INJ 250 ML IV ONE (08:00)
[2017-05-20] MEDS: RESP: ALBUTEROL 2.5 MG/IPRATROPIUM 0.5 MG NEB (SCH) NEB ×4 (08:00→21:10)
[2017-05-20] MEDS: GRANISETRON HCL 1 MG/ML VIAL IV SCH (08:09)
[2017-05-20] MEDS: DEXAMETHASONE SOD PHOS 20 MG/5 ML VIAL IV SCH (08:10)
[2017-05-20] MEDS: LISINOPRIL 20 MG TAB PO SCH (08:15)
[2017-05-20] MEDS: LEVOFLOXACIN 750 MG TAB PO SCH (08:15)
[2017-05-20] MEDS: METOPROLOL TARTRATE 50 MG TAB PO SCH ×2 (08:16→20:30)
[2017-05-20] MEDS: DOCUSATE SODIUM 50 MG/SENNA 8.6 MG TAB PO SCH ×2 (08:18→20:30)
[2017-05-20] MEDS: CEFEPIME INJ 2,000 MG in SODIUM CHLORIDE 0.9% INJ 100 ML IV SCH ×2 (08:19→20:28)
[2017-05-20] MEDS: ATORVASTATIN 20 MG TAB PO SCH (08:19)
[2017-05-20] MEDS: SODIUM CHLORIDE 0.9% FLUSH 10 ML FLUSH IV FLUSH SCH ×2 (08:19→20:30)
[2017-05-20] MEDS: FUROSEMIDE 40 MG/4 ML VIAL IV PUSH SCH (08:20)
[2017-05-20] MEDS: SODIUM CHLORIDE 0.9% FLUSH 10 ML FLUSH IVF SCH (08:28)
[2017-05-20 09:24] LABS: BANDS 1 % (0-6); POLYS (SEG NEUTROPHILS) 17 % (16-70); WBC DIFF SAMPLE 100
[2017-05-20 09:25] LABS: NEUTROPHIL # MANUAL DIFF 0.1 TH/MM3 (1.8-7.7); PLATELET ESTIMATE SMEAR LOW (NORMAL); PLATELET MORPHOLOGY NORMAL (NORMAL); SCAN/DIFF FINAL DIFF MANUAL
--- NOTE | 2017-05-20 10:08 | HHI.PR ---
Subjective Remarks Follow-up for neutropenia Still neutropenic, no overnight events, no fever, no shortness of breath, cough or urinary symptoms. Hemoglobin is lower, for blood transfusion already placed. No hemoptysis. Objective Vitals Vital Signs Date Time Temp Pulse Resp B/P Pulse Ox O2 Delivery O2 Flow Rate FiO2 05/20/17 08:44 94 Nasal Cannula 3.00 05/20/17 08:43 Nasal Cannula 2.50 21 05/20/17 08:00 98.5 88 18 128/68 95 05/20/17 04:00 97.8 78 16 137/72 96 05/20/17 04:00 81 05/20/17 00:00 97.6 95 18 141/89 97 05/20/17 00:00 102 05/19/17 21:05 80 05/19/17 21:05 Nasal Cannula 3.50 21 05/19/17 20:24 94 Nasal Cannula 3.50 05/19/17 20:00 96.2 93 18 138/78 99 05/19/17 16:58 98.8 92 18 137/89 97 05/19/17 16:11 Nasal Cannula 3.00 21 05/19/17 11:15 97.6 91 16 130/75 95 05/19/17 10:57 98.6 91 16 146/86 95 05/19/17 10:53 98.4 98 16 129/81 95 05/19/17 10:12 96 Nasal Cannula 3.50 I/O 05/19/17 05/19/17 05/19/17 05/20/17 05/20/17 05/20/17 07:00 15:00 23:00 07:00 15:00 23:00 Intake Total 720 ml 600 ml 1008 ml Output Total 950 ml 3150 ml 1850 ml 1350 ml 600 ml Balance -230 ml -2550 ml -842 ml -1350 ml -600 ml Intake Oral 720 ml 600 ml 250 ml IV Total 758 ml Output Urine Total 950 ml 3150 ml 1850 ml 1350 ml 600 ml Result Diagram: 05/20/17 0500 05/20/17 0500 Objective Remarks GENERAL: Not in distress. NECK: Trachea midline. CARDIOVASCULAR: Irregularly irregular. RESPIRATORY: Clear to auscultation. Breath sounds equal bilaterally. No wheezes. GASTROINTESTINAL: Abdomen soft, non-tender, nondistended. No palpable masses. No guarding. MUSCULOSKELETAL: Extremities without edema. No joint tenderness, effusion, or edema noted. NEUROLOGICAL: Awake and alert. Cranial nerves II through XII intact. Motor and sensory grossly within normal limits. Normal speech. Hard of hearing, reads lips. A/P Problem List: (1) Pancytopenia ICD Code: D61.818 Status: Acute (2) Macrocytic anemia ICD Code: D53.9 Status: Acute (3) Alcohol abuse ICD Code: F10.10 Status: Acute (4) S/P tympanic tube insertion ICD Code: Z96.22 Status: Acute Assessment and Plan This is a 66-year-old male with acute myelomonocytic anemia and neutropenic fever. Acute myelomonocytic anemia -Medical oncology following, suspecting myeloproliferative neoplasm/CMML. HIV negative. S/p bone marrow biopsy. Pathology revealed acute myelomonocytic leukemia. -Hemoglobin 6.9 today, for transfusion again. Continue chemotherapy per hematology, continue steroids. Neutropenic fever/ Left axillary cellulitis -US axilla negative for abscess. CXR and UA unremarkable. ID consult appreciated. Repeat chest x-ray with diffuse parenchymal opacities, worsening aeration. Continue IV vancomycin, Levaquin and cefepime. Sputum culture pending, still neutropenic. Acute respiratory failure, hemoptysis, pleural effusion - possible Pneumonia noted on x-ray. Continue antibiotics Echo with normal EF. Coughs up bloody sputum. Pulmonology consult appreciated. CT chest with alveolar infiltrates consistent with pulmonary edema. Might need bronchoscopy , continue antibiotics and oxygen support. BMP stable. HTN Currently stable.Continue home medications lisinopril, increase metoprolol. Amlodipine on hold. Afib, controlled rate -Rate elevated at times. Exacerbated by infection. - Monitor tele. Eliquis on hold for pancytopenia, continue Lopressor, dose increased Ear pain S/p tympanic tube placement by ENT for chronic ear infection. - continue antibiotics. - outpt follow up. Alcohol abuse Chronic. - Withdrawal precautions: sz and fall precaution in place. - Encouraged to quit. - on CIWA protocol if needed. Hyperglycemia S/t dexamethasone. - cover with insulin sliding scale. PPx: SCDs, pharmacological prophylaxis contraindicated because of anemia. Discharge Planning Once cleared by hematology, likely with home health care Lisa Kidd MD May 20, 2017 10:08
--- NOTE | 2017-05-20 11:04 | PD.ONC.PN ---
Subjective Subjective Remarks Afebrile overnight Denies acute complaints Tolerating chemotherapy well Objective Data Date Time Temp Pulse Resp B/P Pulse Ox O2 Delivery O2 Flow Rate FiO2 05/20/17 08:44 94 Nasal Cannula 3.00 05/20/17 08:43 Nasal Cannula 2.50 21 05/20/17 08:00 98.5 88 18 128/68 95 05/20/17 04:00 97.8 78 16 137/72 96 05/20/17 04:00 81 05/20/17 00:00 97.6 95 18 141/89 97 05/20/17 00:00 102 05/19/17 21:05 80 05/19/17 21:05 Nasal Cannula 3.50 21 05/19/17 20:24 94 Nasal Cannula 3.50 05/19/17 20:00 96.2 93 18 138/78 99 05/19/17 16:58 98.8 92 18 137/89 97 05/19/17 16:11 Nasal Cannula 3.00 21 05/19/17 11:15 97.6 91 16 130/75 95 05/20/17 05/20/17 05/20/17 07:00 15:00 23:00 Output Total 1350 ml 600 ml Balance -1350 ml -600 ml Result Diagram: 05/20/17 0500 05/20/17 0500 Laboratory Results Laboratory Tests Test 05/19/17 05/20/17 05/20/17 15:20 05:00 06:32 Vancomycin Level Trough 12.7 MCG/ML White Blood Count 0.3 TH/MM3 Red Blood Count 2.09 MIL/MM3 Hemoglobin 6.9 GM/DL Hematocrit 19.3 % Mean Corpuscular Volume 92.4 FL Mean Corpuscular Hemoglobin 33.2 PG Mean Corpuscular Hemoglobin 35.9 % Concent Red Cell Distribution Width 20.0 % Platelet Count 30 TH/MM3 Mean Platelet Volume 7.5 FL Neutrophils (%) (Auto) 16.2 % Lymphocytes (%) (Auto) 76.5 % Monocytes (%) (Auto) 6.8 % Eosinophils (%) (Auto) 0.1 % Basophils (%) (Auto) 0.4 % Neutrophils # (Auto) 0.1 TH/MM3 Lymphocytes # (Auto) 0.2 TH/MM3 Monocytes # (Auto) 0.0 TH/MM3 Eosinophils # (Auto) 0.0 TH/MM3 Basophils # (Auto) 0.0 TH/MM3 CBC Comment AUTO DIFF Differential Total Cells 100 Counted Neutrophils % (Manual) 17 % Band Neutrophils % 1 % Lymphocytes % 78 % Monocytes % 4 % Neutrophils # (Manual) 0.1 TH/MM3 Differential Comment FINAL DIFF MANUAL Platelet Estimate LOW Platelet Morphology Comment NORMAL Sodium Level 138 MEQ/L Potassium Level 4.1 MEQ/L Chloride Level 105 MEQ/L Carbon Dioxide Level 28.6 MEQ/L Anion Gap 4 MEQ/L Blood Urea Nitrogen 26 MG/DL Creatinine 0.68 MG/DL Estimat Glomerular Filtration 117 ML/MIN Rate Random Glucose 178 MG/DL Calcium Level 8.0 MG/DL Blood Type A POSITIVE Crossmatch Irradiated/Leukocyte-Reduced RBC Blood Bank Comment Culture Results Microbiology Date/Time Procedure Status Source Growth 05/18/17 02:30 Legionella Antigen - Final Complete Urine Clean Catch PRESUMPTIVE NEGATIVE FOR LEGIONELLA P... 05/18/17 02:30 Streptococcus pneumoniae Antigen (M - Final Complete Urine Clean Catch PRESUMPTIVE NEGATIVE FOR STREPTOCOCCU... 05/19/17 07:11 Cancelled Sputum Expectorated Sputum Administered Medications Medications (Trade) Dose Ordered Sig/Maritza Route PRN Reason Start Time Stop Time Status Last Admin Dose Admin Sodium Chloride (NS Flush) 2 ml UNSCH PRN IV FLUSH FLUSH AFTER USING IV ACCESS 05/10/17 15:00 05/15/17 03:47 Sodium Chloride (NS Flush) 2 ml BID IV FLUSH 05/10/17 21:00 05/15/17 21:02 Acetaminophen (Tylenol) 650 mg Q4H PRN PO TEMP > 100.4 OR PREMEDICATION FOR BLOOD PRODUCT 05/10/17 15:00 05/19/17 10:45 Senna/Docusate Sodium (Cinthia-Colace) 1 tab BID PO 05/10/17 21:00 05/20/17 08:18 Amlodipine Besylate (Norvasc) 5 mg DAILY PO 05/11/17 09:00 Hold 05/14/17 10:17 Atorvastatin Calcium (Lipitor) 20 mg DAILY PO 05/11/17 09:00 05/20/17 08:19 Lisinopril 20 mg 20 mg DAILY PO 05/11/17 09:00 05/20/17 08:15 Cefepime HCl/ Sodium Chloride (Maxipime Inj/NS Inj) 100 ml @ 200 mls/hr Q12H IV 05/11/17 08:00 05/20/17 08:19 Oxycodone HCl (Roxicodone) 5 mg Q4H PRN PO PAIN SCALE 3 TO 5 05/11/17 12:00 05/12/17 01:23 Metoprolol Tartrate (Lopressor) 75 mg BID PO 05/14/17 21:00 05/20/17 08:16 Granisetron HCl (Kytril Inj) 1 mg DAILY IV 05/15/17 12:30 05/21/17 09:01 05/20/17 08:09 Dexamethasone Sodium Phosphate 20 mg 20 mg DAILY IV 05/15/17 12:30 05/21/17 09:01 05/20/17 08:10 Cytarabine 241 mg/ Sodium Chloride 500 ml @ 20.833 mls/ hr Q24H IV 05/15/17 14:00 05/22/17 13:59 05/20/17 04:45 Sodium Chloride (NS 1000 ml Inj) 1,000 ml @ 30 mls/hr Q24H IV 05/15/17 12:00 05/20/17 05:00 Levofloxacin (Levaquin) 750 mg DAILY PO 05/15/17 14:00 05/20/17 08:15 Diphenhydramine HCl (Benadryl) 25 mg Q4H PRN PO PRE-MEDICATE FOR BLOOD PRODUCT 05/15/17 15:30 05/19/17 10:45 Furosemide 40 mg 40 mg DAILY IV PUSH 05/18/17 09:00 05/20/17 08:20 Vancomycin HCl/ Sodium Chloride (Vancomycin Inj/ NS 250 ml Inj) 265 ml @ 132.5 mls/ hr Q12H IV 05/19/17 05:00 05/20/17 05:00 Objective Remarks GENERAL: Older male, sitting up in chair at bedside in no distress SKIN: Warm and dry. HEAD: Normocephalic. EYES: No injection or drainage. NECK: Supple, trachea midline. CARDIOVASCULAR: + S1/S2. RESPIRATORY: Clear anteriorly. Breathing unlabored. On 2L O2 via nc. GASTROINTESTINAL: Abdomen soft, non-tender, nondistended. EXTREMITIES: No cyanosis, no edema. NEUROLOGICAL: Awake and alert, normal speech. Moving all extremities Assessment/Plan Problem List: (1) Acute myelomonocytic leukemia Status: Acute Plan: --flow cytometry indicates acute myelomonocytic leukemia --s/p jang catheter placement 05/14: Jang catheter placement and echo--EF=55-60% 05/15: Day 1 Induction chemotherapy with SHABANA-C/Idarubicin 05/16: D2. no transfusion today. tolerating chemotherapy 05/17: D3. no transfusion. continue chemo. pulmonology consulted for hemoptysis. may need bronch 05/18: D4. 1 unit pRBC. continue chemo. 05/19: D5 1 unit packed red blood cells. Continue chemotherapy. 05/20: D5 1 unit PRBC's. Continue chemotherapy (2) Neutropenic fever Status: Acute Plan: --ID following --on Vanco, Cefepime, and Levaquin --CXR shows diffuse parenchymal opacities. CT chest shows bilateral alveolar infiltrates consistent with pulmonary edema --BC no growth (3) Hyperbilirubinemia Status: Acute Plan: --combination of direct and indirect elevated. --unclear etiology --will obtain hepatitis panel, monitor (4) Respiratory insufficiency Status: Acute Plan: --CXR shows worsening aeration. --pulmonology following --CT chest shows alveolar infiltrates. --on duonebs PRN --Lasix PRN Assessment 66y/o male with newly diagnosed AML. Plan 1. Continue induction chemotherapy 2. We will continue to monitor closely for cytopenias 3. Transfuse one unit packed red blood cells today 4. Continue antibiotics. Attending Statement The exam, history, and the medical decision-making described in the above note were completed with the assistance of the mid-level provider. I reviewed and agree with the findings presented. I attest that I had a [id number] encounter with the patient on the same day, and personally performed and documented my assessment and findings in the medical record. Tolerating chemo well. Blood counts trending lower. Continue transfusion prn. Continue chemo protocol. Problem Qualifiers (1) Acute myelomonocytic leukemia: Qualified Code: C92.50 - Acute myelomonocytic leukemia not having achieved remission Patience Renner May 20, 2017 11:04 Dm Sandra MD May 20, 2017 11:40
[2017-05-20] MEDS: diphenhydrAMINE HCL 25 MG CAP PO PRN (11:09)
[2017-05-20] MEDS: ACETAMINOPHEN 325 MG TAB PO PRN (11:09)
--- NOTE | 2017-05-20 15:46 | HHI.PR ---
Subjective Remarks 66 YOWM with ac Monomyelocytik leuk, bilat infilt Minimal hemoptysis no Fever No new complaint Feels better Objective Vital Signs Vital Signs Date Time Temp Pulse Resp B/P Pulse Ox O2 Delivery O2 Flow Rate FiO2 05/20/17 12:00 97.6 100 18 130/67 90 05/20/17 11:49 97.1 93 18 116/69 99 05/20/17 11:26 97.6 90 16 130/67 100 05/20/17 08:44 94 Nasal Cannula 3.00 05/20/17 08:43 Nasal Cannula 2.50 21 05/20/17 08:00 98.5 88 18 128/68 95 05/20/17 04:00 97.8 78 16 137/72 96 05/20/17 04:00 81 05/20/17 00:00 97.6 95 18 141/89 97 05/20/17 00:00 102 05/19/17 21:05 80 05/19/17 21:05 Nasal Cannula 3.50 21 05/19/17 20:24 94 Nasal Cannula 3.50 05/19/17 20:00 96.2 93 18 138/78 99 05/19/17 16:58 98.8 92 18 137/89 97 05/19/17 16:11 Nasal Cannula 3.00 21 I/O 05/19/17 05/19/17 05/19/17 05/20/17 05/20/17 05/20/17 07:00 15:00 23:00 07:00 15:00 23:00 Intake Total 720 ml 600 ml 1008 ml Output Total 950 ml 3150 ml 1850 ml 1350 ml 600 ml Balance -230 ml -2550 ml -842 ml -1350 ml -600 ml Intake Oral 720 ml 600 ml 250 ml IV Total 758 ml Output Urine Total 950 ml 3150 ml 1850 ml 1350 ml 600 ml Result Diagram: 05/20/17 0500 05/20/17 0500 Objective Remarks GENERAL: WMWN WM, NAD SKIN: Warm and dry. HEAD: Normocephalic. EYES: No scleral icterus. No injection or drainage. NECK: Supple, trachea midline. No JVD or lymphadenopathy. CARDIOVASCULAR: Regular rate and rhythm without murmurs, gallops, or rubs. RESPIRATORY: Breath sounds equal bilaterally. No accessory muscle use. GASTROINTESTINAL: Abdomen soft, non-tender, nondistended. MUSCULOSKELETAL: No cyanosis, or edema. BACK: Nontender without obvious deformity. No CVA tenderness. A/P Assessment and Plan Bilat Infilt Pleural effusion mild Hemoptysis Ac Monomyelocytic Leukemia Pancytopenia PLAN" Cont Abx per ID monitor pl fluid CBC Supplement 02 Hemoptysis resolved. Wean 02 Donald Mayo MD May 20, 2017 15:46
[2017-05-21] VITALS (16 sets, daily range): BP systolic 111–138; BP diastolic 60–72; PULSE 68–112; RESP 16–20; TEMP 96.5–98.2; O2SAT 92–100
[2017-05-21] MEDS ORDERED: PHARMACY ORDERED LAB ONE (04:45)
[2017-05-21] MEDS: SODIUM CHLORID 0.9% IV SCH (05:09)
[2017-05-21] MEDS: CYTARABINE IV SCH (05:09)
[2017-05-21] MEDS: VANCOMYCIN INJ 1,500 MG in SODIUM CHLOR 0.9% 250 ML INJ 250 ML IV SCH ×2 (05:20→17:33)
[2017-05-21] MEDS: INSULIN ASPART SUPPLEMENTAL SCALE SQ SCH ×4 (06:35→21:51)
[2017-05-21 06:44] LABS: HEMATOCRIT 21.7 % (39.0-51.0); MEAN CORPUSCULAR HEMOGLOBIN 31.4 PG (27.0-34.0); MEAN CORPUSCULAR HGB CONC 34.1 % (32.0-36.0); PLATELET COUNT 22 TH/MM3 (150-450); RED BLOOD COUNT 2.36 MIL/MM3 (4.50-5.90); RED CELL DISTRIBUTION WIDTH 19.4 % (11.6-17.2); WHITE BLOOD COUNT 0.3 TH/MM3 (4.0-11.0)
[2017-05-21 06:55] LABS: BICARBONATE 28.6 MEQ/L (21.0-32.0); POTASSIUM 4.2 MEQ/L (3.5-5.1)
[2017-05-21 06:59] LABS: HEMO FLAGS AUTO DIFF
--- NOTE | 2017-05-21 07:33 | PD.ONC.PN ---
Subjective Subjective Remarks Patient seen and examined, pathology reports, blood work, imaging studies, cytogenetics, medication list and treatment rendered us for reviewed. 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 Subjectively patient reports having poor appetite and fatigue but other than that denies acute complaints or treatment related toxicity. He has remained afebrile over the past weekend. On day 6 out of 7 of induction remission chemotherapy. Objective Data Date Time Temp Pulse Resp B/P Pulse Ox O2 Delivery O2 Flow Rate FiO2 05/21/17 06:00 75 05/21/17 04:00 98.2 83 18 120/72 92 05/21/17 00:07 68 05/21/17 00:00 97.4 70 16 115/65 97 05/20/17 21:10 96 Nasal Cannula 4.00 05/20/17 20:20 100 Nasal Cannula 4.00 05/20/17 20:06 95 05/20/17 20:00 97.5 95 18 128/83 100 05/20/17 16:00 98.4 98 18 121/72 94 05/20/17 12:00 97.6 100 18 130/67 90 05/20/17 11:49 97.1 93 18 116/69 99 05/20/17 11:26 97.6 90 16 130/67 100 05/20/17 08:44 94 Nasal Cannula 3.00 05/20/17 08:43 Nasal Cannula 2.50 21 05/20/17 08:00 98.5 88 18 128/68 95 05/21/17 05/21/17 05/21/17 07:00 15:00 23:00 Intake Total 400 ml Output Total 750 ml Balance -350 ml Result Diagram: 05/21/17 0600 05/21/17 0600 Laboratory Results Laboratory Tests Test 05/21/17 05/21/17 05:00 06:00 Vancomycin Level Trough 12.0 MCG/ML White Blood Count 0.3 TH/MM3 Red Blood Count 2.36 MIL/MM3 Hemoglobin 7.4 GM/DL Hematocrit 21.7 % Mean Corpuscular Volume 92.0 FL Mean Corpuscular Hemoglobin 31.4 PG Mean Corpuscular Hemoglobin 34.1 % Concent Red Cell Distribution Width 19.4 % Platelet Count 22 TH/MM3 Mean Platelet Volume 7.4 FL Neutrophils (%) (Auto) % Lymphocytes (%) (Auto) % Monocytes (%) (Auto) % Eosinophils (%) (Auto) % Basophils (%) (Auto) % Neutrophils # (Auto) TH/MM3 Lymphocytes # (Auto) TH/MM3 Monocytes # (Auto) TH/MM3 Eosinophils # (Auto) TH/MM3 Basophils # (Auto) TH/MM3 CBC Comment AUTO DIFF Sodium Level 139 MEQ/L Potassium Level 4.2 MEQ/L Chloride Level 103 MEQ/L Carbon Dioxide Level 28.6 MEQ/L Anion Gap 7 MEQ/L Blood Urea Nitrogen 24 MG/DL Creatinine 0.52 MG/DL Estimat Glomerular Filtration 159 ML/MIN Rate Random Glucose 142 MG/DL Calcium Level 8.1 MG/DL Culture Results Microbiology Date/Time Procedure Status Source Growth 05/19/17 07:11 Cancelled Sputum Expectorated Sputum 05/20/17 20:30 Gram Stain Received Sputum Expectorated Sputum Pending 05/20/17 20:30 Sputum Culture Received Sputum Expectorated Sputum Pending Administered Medications Medications (Trade) Dose Ordered Sig/Maritza Route PRN Reason Start Time Stop Time Status Last Admin Dose Admin Sodium Chloride (NS Flush) 2 ml UNSCH PRN IV FLUSH FLUSH AFTER USING IV ACCESS 05/10/17 15:00 05/15/17 03:47 Sodium Chloride (NS Flush) 2 ml BID IV FLUSH 05/10/17 21:00 05/20/17 20:30 Acetaminophen (Tylenol) 650 mg Q4H PRN PO TEMP > 100.4 OR PREMEDICATION FOR BLOOD PRODUCT 05/10/17 15:00 05/20/17 11:09 Senna/Docusate Sodium (Cinthia-Colace) 1 tab BID PO 05/10/17 21:00 05/20/17 08:18 Amlodipine Besylate (Norvasc) 5 mg DAILY PO 05/11/17 09:00 Hold 05/14/17 10:17 Atorvastatin Calcium (Lipitor) 20 mg DAILY PO 05/11/17 09:00 05/20/17 08:19 Lisinopril 20 mg 20 mg DAILY PO 05/11/17 09:00 05/20/17 08:15 Cefepime HCl/ Sodium Chloride (Maxipime Inj/NS Inj) 100 ml @ 200 mls/hr Q12H IV 05/11/17 08:00 05/20/17 20:28 Oxycodone HCl (Roxicodone) 5 mg Q4H PRN PO PAIN SCALE 3 TO 5 05/11/17 12:00 05/12/17 01:23 Metoprolol Tartrate (Lopressor) 75 mg BID PO 05/14/17 21:00 05/20/17 20:30 Granisetron HCl (Kytril Inj) 1 mg DAILY IV 05/15/17 12:30 05/21/17 09:01 05/20/17 08:09 Dexamethasone Sodium Phosphate 20 mg 20 mg DAILY IV 05/15/17 12:30 05/21/17 09:01 05/20/17 08:10 Cytarabine 241 mg/ Sodium Chloride 500 ml @ 20.833 mls/ hr Q24H IV 05/15/17 14:00 05/22/17 13:59 05/21/17 05:09 Sodium Chloride (NS 1000 ml Inj) 1,000 ml @ 30 mls/hr Q24H IV 05/15/17 12:00 05/20/17 05:00 Levofloxacin (Levaquin) 750 mg DAILY PO 05/15/17 14:00 05/20/17 08:15 Diphenhydramine HCl (Benadryl) 25 mg Q4H PRN PO PRE-MEDICATE FOR BLOOD PRODUCT 05/15/17 15:30 05/20/17 11:09 Furosemide 40 mg 40 mg DAILY IV PUSH 05/18/17 09:00 05/20/17 08:20 Vancomycin HCl/ Sodium Chloride (Vancomycin Inj/ NS 250 ml Inj) 265 ml @ 132.5 mls/ hr Q12H IV 05/19/17 05:00 05/21/17 05:20 Objective Remarks GENERAL: Middle-aged/elderly male, laying in bed, appears to be no acute distress. SKIN: Warm and dry. HEAD: Normocephalic. EYES: No scleral icterus. No injection or drainage. Conjunctivae are pale. NECK: Supple, trachea midline. No JVD or lymphadenopathy. LYMPHATIC: No adenopathy. Chest: Right-sided tunneled catheter. CARDIOVASCULAR: Irregular rhythm without murmurs. RESPIRATORY: Breath sounds equal bilaterally. No accessory muscle use. GASTROINTESTINAL: Abdomen soft, non-tender, nondistended. EXTREMITIES: No cyanosis, or edema. MUSCULOSKELETAL: Adequate muscle tone. NEUROLOGICAL: No obvious focal deficit. Awake, alert, and oriented x3. PSYCHIATRIC: Appropriate mood and affect; insight and judgment normal. 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 Started on induction systemic chemotherapy with idarubicin/cytarabine (3+7) on . (2) Neutropenic fever Status: Acute Plan: Presently on empiric antibiotic therapy with cefepime, levofloxacin and vancomycin. Blood cultures and urine cultures are negative to date. He has been afebrile over the past 48 hours. (3) Hyperbilirubinemia Status: Acute Plan: --combination of direct and indirect elevated. --unclear etiology --will obtain hepatitis panel, monitor (4) Respiratory insufficiency Status: Acute Plan: --CXR shows worsening aeration. --pulmonology following --CT chest shows alveolar infiltrates. 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 Plan 1. Today is day 6 cytarabine, chemotherapy will be completed on 05/22/2017. 2. He is cytopenic, continue supportive transfusions with irradiated and CMV negative blood products. Counts reviewed dated 05/21/2017; no need for transfusion today. 3. Febrile neutropenia: He remains neutropenic, on empiric IV antibiotic therapy. Appreciate infectious diseases input and assistance. Continue ongoing care. Once induction chemotherapy has been completed he will remain in the hospital until his counts recover. Typically restaging bone marrow biopsy is obtained between 10-14 days post completion of induction chemotherapy. Problem Qualifiers (1) Acute myelomonocytic leukemia: Qualified Code: C92.50 - Acute myelomonocytic leukemia not having achieved remission Dwain Deiz MD May 21, 2017 07:33
[2017-05-21 08:00] LABS: OVALOCYTES 1+ (NORMAL); PLATELET ESTIMATE SMEAR LOW (NORMAL); PLATELET MORPHOLOGY NORMAL (NORMAL); SCAN/DIFF FINAL DIFF MANUAL; TEARDROP RBCS 1+ (NORMAL); WBC DIFF SAMPLE 10
[2017-05-21] MEDS: DEXAMETHASONE SOD PHOS 20 MG/5 ML VIAL IV SCH (08:12)
[2017-05-21] MEDS: FUROSEMIDE 40 MG/4 ML VIAL IV PUSH SCH (08:12)
[2017-05-21] MEDS: GRANISETRON HCL 1 MG/ML VIAL IV SCH (08:12)
[2017-05-21] MEDS: ATORVASTATIN 20 MG TAB PO SCH (08:13)
[2017-05-21] MEDS: DOCUSATE SODIUM 50 MG/SENNA 8.6 MG TAB PO SCH ×2 (08:13→20:40)
[2017-05-21] MEDS: METOPROLOL TARTRATE 50 MG TAB PO SCH ×2 (08:13→20:39)
[2017-05-21] MEDS: LISINOPRIL 20 MG TAB PO SCH (08:13)
[2017-05-21] MEDS: LEVOFLOXACIN 750 MG TAB PO SCH (08:13)
[2017-05-21] MEDS: SODIUM CHLORIDE 0.9% FLUSH 10 ML FLUSH IV FLUSH SCH ×2 (08:13→20:41)
[2017-05-21] MEDS: RESP: ALBUTEROL 2.5 MG/IPRATROPIUM 0.5 MG NEB (SCH) NEB ×4 (08:51→19:16)
[2017-05-21] MEDS: SODIUM CHLORIDE 0.9% FLUSH 10 ML FLUSH IVF SCH (08:52)
[2017-05-21] MEDS: SODIUM CHLOR 0.9% 1000 ML INJ 1,000 ML IV SCH (08:53)
[2017-05-21] MEDS: CEFEPIME INJ 2,000 MG in SODIUM CHLORIDE 0.9% INJ 100 ML IV SCH ×2 (08:53→20:39)
[2017-05-21] MEDS: diphenhydrAMINE HCL 25 MG CAP PO PRN (10:39)
[2017-05-21] MEDS: ACETAMINOPHEN 325 MG TAB PO PRN (10:39)
--- NOTE | 2017-05-21 11:24 | HHI.PR ---
Subjective Remarks hard of hearing. Patient tin bed. has no fever or chills. No cough. No n/v/d/c. Feels tired. Objective Vitals Vital Signs Date Time Temp Pulse Resp B/P Pulse Ox O2 Delivery O2 Flow Rate FiO2 05/21/17 11:08 98.1 87 16 111/69 98 05/21/17 08:51 97 Nasal Cannula 4.00 05/21/17 08:22 Nasal Cannula 4.00 05/21/17 08:00 97.8 96 20 133/63 94 05/21/17 06:00 75 05/21/17 04:00 98.2 83 18 120/72 92 05/21/17 00:07 68 05/21/17 00:00 97.4 70 16 115/65 97 05/20/17 21:10 96 Nasal Cannula 4.00 05/20/17 20:20 100 Nasal Cannula 4.00 05/20/17 20:06 95 05/20/17 20:00 97.5 95 18 128/83 100 05/20/17 16:00 98.4 98 18 121/72 94 05/20/17 12:00 97.6 100 18 130/67 90 05/20/17 11:49 97.1 93 18 116/69 99 05/20/17 11:26 97.6 90 16 130/67 100 I/O 05/20/17 05/20/17 05/20/17 05/21/17 05/21/17 05/21/17 07:00 15:00 23:00 07:00 15:00 23:00 Intake Total 840 ml 1383 ml 400 ml Output Total 1350 ml 2450 ml 1175 ml 750 ml 2000 ml Balance -1350 ml -1610 ml 208 ml -350 ml -2000 ml Intake Oral 840 ml IV Total 1383 ml 400 ml Output Urine Total 1350 ml 2450 ml 1175 ml 750 ml 2000 ml # Bowel Movements 1 Result Diagram: 05/21/17 0600 05/21/17 06 Imaging Last Impressions Chest X-Ray 05/18/17 0000 Signed Impressions: Service Date/Time: Thursday, May 18, 2017 14:54 - CONCLUSION: Stable parenchymal opacity in both lungs. Ryan Hoover MD FACR Catheter Placement X-Ray 05/18/17 0000 Signed Impressions: Service Date/Time: Thursday, May 18, 2017 16:40 - CONCLUSION: Uncomplicated ultrasound and fluoroscopic guided dual lumen Jang catheter implantation as described. Emerson Carrasquillo MD Chest CT 05/17/17 0000 Signed Impressions: Service Date/Time: April 17:53 - CONCLUSION: 1. Bilateral alveolar infiltrates most characteristic of pulmonary edema. 2. Small to moderate bilateral pleural effusions. 3. Small amount of pericardial fluid. 4. Coronary artery calcifications. 5. Prominent left lobe of the thyroid with low attenuation nodular area. Braxton Tidwell MD Bone Biopsy CT 05/11/17 1309 Signed Impressions: Service Date/Time: Thursday, May 11, 2017 15:10 - CONCLUSION: 1. Uncomplicated CT guided bone marrow aspirate. 2. Uncomplicated CT guided bone marrow biopsy. Ryan Hoover MD FACR Soft Tissue Ultrasound 05/11/17 0000 Signed Impressions: Service Date/Time: Thursday, May 11, 2017 08:27 - CONCLUSION: Negative for abscess. Edematous changes in the soft tissues of the left axilla. Hank Nixon MD Objective Remarks GENERAL: 66 yo male, hard of hearing. Not in distress. NECK: Trachea midline. CARDIOVASCULAR: Irregularly irregular. RESPIRATORY: Clear to auscultation. Breath sounds equal bilaterally. No wheezes. GASTROINTESTINAL: Abdomen soft, non-tender, nondistended. No palpable masses. No guarding. MUSCULOSKELETAL: Extremities without edema. No joint tenderness, effusion, or edema noted. NEUROLOGICAL: Awake and alert. Cranial nerves II through XII intact. Motor and sensory grossly within normal limits. Normal speech. Hard of hearing, reads lips. A/P Problem List: (1) Pancytopenia ICD Code: D61.818 Status: Acute (2) Macrocytic anemia ICD Code: D53.9 Status: Acute (3) Alcohol abuse ICD Code: F10.10 Status: Acute (4) S/P tympanic tube insertion ICD Code: Z96.22 Status: Acute Assessment and Plan This is a 66-year-old male with acute myelomonocytic anemia and neutropenic fever. Acute myelomonocytic anemia -Medical oncology following, suspecting myeloproliferative neoplasm/CMML. HIV negative. S/p bone marrow biopsy. Pathology revealed acute myelomonocytic leukemia. -Hemoglobin 6.9 today, for transfusion again. Continue chemotherapy per hematology, continue steroids. Neutropenic fever/ Left axillary cellulitis -US axilla negative for abscess. CXR and UA unremarkable. ID consult appreciated. Repeat chest x-ray with diffuse parenchymal opacities, worsening aeration. Continue IV vancomycin, Levaquin and cefepime. Sputum culture pending, still neutropenic. Acute respiratory failure, hemoptysis, pleural effusion - possible Pneumonia noted on x-ray. Continue antibiotics Echo with normal EF. Coughs up bloody sputum. Pulmonology consult appreciated. CT chest with alveolar infiltrates consistent with pulmonary edema. Might need bronchoscopy , continue antibiotics and oxygen support. BMP stable. HTN Currently stable.Continue home medications lisinopril, increase metoprolol. Amlodipine on hold. Afib, controlled rate -Rate elevated at times. Exacerbated by infection. - Monitor tele. Eliquis on hold for pancytopenia, continue Lopressor, dose increased Ear pain S/p tympanic tube placement by ENT for chronic ear infection. - continue antibiotics. - outpt follow up. Alcohol abuse Chronic. - Withdrawal precautions: sz and fall precaution in place. - Encouraged to quit. - on CIWA protocol if needed. Hyperglycemia S/t dexamethasone. - cover with insulin sliding scale. PPx: SCDs, pharmacological prophylaxis contraindicated because of anemia. Discharge Planning Once cleared by hematology, likely DC home with home health care Adalgisa Garcia MD May 21, 2017 11:24
--- NOTE | 2017-05-21 18:45 | HHI.IDPN ---
Subjective Subjective Remarks ID Xcover for . is a 66 year old male, with newly Dx AML. Has had low grade temps. On induction chemotherapy at present time and tolerating well. Overnight events reviewed. Temps better Now able to expectorate some sputum sent for cultures. Denies any shortness of breath or blood in sputum. No N/V No diarrhea or abdominal pain. Antibiotics Vancomycin Cefepime Lines KAYKAY Jang Past Medical History Atrial fibrillation Hypertension Hyperlipidemia Arthritis Past Surgical History Hernia repair Tonsillectomy Left knee replacement Allergies: Coded Allergies: No Known Allergies (Unverified , 05/10/17) Objective . Vital Signs Date Time Temp Pulse Resp B/P Pulse Ox O2 Delivery O2 Flow Rate FiO2 05/21/17 16:00 112 20 138/67 100 05/21/17 15:42 93 Nasal Cannula 4.00 05/21/17 14:28 97.6 104 16 121/69 98 05/21/17 12:00 96.5 107 20 118/72 100 05/21/17 11:58 97.9 96 16 124/71 99 05/21/17 11:08 98.1 87 16 111/69 98 05/21/17 08:51 97 Nasal Cannula 4.00 05/21/17 08:22 Nasal Cannula 4.00 05/21/17 08:00 97.8 96 20 133/63 94 05/21/17 06:00 75 05/21/17 04:00 98.2 83 18 120/72 92 05/21/17 00:07 68 05/21/17 00:00 97.4 70 16 115/65 97 05/20/17 21:10 96 Nasal Cannula 4.00 05/20/17 20:20 100 Nasal Cannula 4.00 05/20/17 20:06 95 05/20/17 20:00 97.5 95 18 128/83 100 05/20/17 05/20/17 05/21/17 15:00 23:00 07:00 Intake Total 840 ml 1383 ml 400 ml Output Total 2450 ml 1175 ml 750 ml Balance -1610 ml 208 ml -350 ml Intake Oral 840 ml IV Total 1383 ml 400 ml Output Urine Total 2450 ml 1175 ml 750 ml # Bowel Movements 1 . Laboratory Tests Test 05/20/17 05/21/17 05:00 06:00 White Blood Count 0.3 TH/MM3 0.3 TH/MM3 Red Blood Count 2.09 MIL/MM3 2.36 MIL/MM3 Hemoglobin 6.9 GM/DL 7.4 GM/DL Hematocrit 19.3 % 21.7 % Mean Corpuscular Volume 92.4 FL 92.0 FL Mean Corpuscular Hemoglobin 33.2 PG 31.4 PG Mean Corpuscular Hemoglobin 35.9 % 34.1 % Concent Red Cell Distribution Width 20.0 % 19.4 % Platelet Count 30 TH/MM3 22 TH/MM3 Mean Platelet Volume 7.5 FL 7.4 FL Neutrophils (%) (Auto) 16.2 % % Lymphocytes (%) (Auto) 76.5 % % Monocytes (%) (Auto) 6.8 % % Eosinophils (%) (Auto) 0.1 % % Basophils (%) (Auto) 0.4 % % Neutrophils # (Auto) 0.1 TH/MM3 TH/MM3 Lymphocytes # (Auto) 0.2 TH/MM3 TH/MM3 Monocytes # (Auto) 0.0 TH/MM3 TH/MM3 Eosinophils # (Auto) 0.0 TH/MM3 TH/MM3 Basophils # (Auto) 0.0 TH/MM3 TH/MM3 CBC Comment AUTO DIFF AUTO DIFF Differential Total Cells 100 10 Counted Neutrophils % (Manual) 17 % Band Neutrophils % 1 % Lymphocytes % 78 % 100 % Monocytes % 4 % Neutrophils # (Manual) 0.1 TH/MM3 Differential Comment FINAL DIFF FINAL DIFF MANUAL MANUAL Platelet Estimate LOW LOW Platelet Morphology Comment NORMAL NORMAL Tear Drop Cells 1+ Ovalocytes 1+ Laboratory Tests Test 05/20/17 05/21/17 05:00 06:00 Sodium Level 138 MEQ/L 139 MEQ/L Potassium Level 4.1 MEQ/L 4.2 MEQ/L Chloride Level 105 MEQ/L 103 MEQ/L Carbon Dioxide Level 28.6 MEQ/L 28.6 MEQ/L Anion Gap 4 MEQ/L 7 MEQ/L Blood Urea Nitrogen 26 MG/DL 24 MG/DL Creatinine 0.68 MG/DL 0.52 MG/DL Estimat Glomerular Filtration 117 ML/MIN 159 ML/MIN Rate Random Glucose 178 MG/DL 142 MG/DL Calcium Level 8.0 MG/DL 8.1 MG/DL Microbiology Date/Time Procedure Status Source Growth 05/19/17 07:11 Cancelled Sputum Expectorated Sputum 05/20/17 20:30 Gram Stain - Final Resulted Sputum Expectorated Sputum 05/20/17 20:30 Sputum Culture Resulted Sputum Expectorated Sputum Pending Imaging Chest X-Ray 05/17/17 0000 Signed Impressions: Service Date/Time: April 08:43 - CONCLUSION: Worsening aeration. Emerson Carrasquillo MD Chest CT 05/17/17 0000 Signed Impressions: Service Date/Time: April 17:53 - CONCLUSION: 1. Bilateral alveolar infiltrates most characteristic of pulmonary edema. 2. Small to moderate bilateral pleural effusions. 3. Small amount of pericardial fluid. 4. Coronary artery calcifications. 5. Prominent left lobe of the thyroid with low attenuation nodular area. Braxton Tidwell MD Chest X-Ray 05/12/17 0000 Signed Impressions: Service Date/Time: Friday, May 12, 2017 14:53 - CONCLUSION: Mild cardiomegaly. Emerson Farias MD Bone Biopsy CT 05/11/17 1309 Signed Impressions: Service Date/Time: Thursday, May 11, 2017 15:10 - CONCLUSION: 1. Uncomplicated CT guided bone marrow aspirate. 2. Uncomplicated CT guided bone marrow biopsy. Ryan Hoover MD FACR Soft Tissue Ultrasound 05/11/17 0000 Signed Impressions: Service Date/Time: Thursday, May 11, 2017 08:27 - CONCLUSION: Negative for abscess. Edematous changes in the soft tissues of the left axilla. Hank Nixon MD Physical Exam GENERAL: awake and alert, not in respiratory distress. SKIN: Warm and dry. No generalized rash, no ecchymoses and no evidence of embolic lesions. HEAD: Atraumatic. Normocephalic. No temporal wasting, or tenderness. EYES: Pale conjunctiva. No petechia or hemorrhage. Pupils equal, round and reactive to light. No scleral icterus. No injection or drainage. EARS, NOSE AND THROAT: Nose without bleeding or purulent nasal discharge. No sinus tenderness. Mucous membranes pink and moist. No oral lesions noted. He is edentulous. No drainage R ear NECK: Trachea midline. Supple and not tender, no meningeal signs CARDIOVASCULAR: Irregular rate and rhythm. No murmurs, rubs or gallops heard RESPIRATORY: Coarse BS bilaterally ABDOMEN: Soft, non-tender, nondistended. Bowel sounds present and normoactive. No guarding. No rebound. No organomegaly. EXTREMITIES: No clubbing, cyanosis, or edema. No joint effusion, has good ROM. No calf tenderness. L axilla - there is an indurated area about 2 inch x 1 in size, tender, with a small area of redness almost at the center. NEUROLOGICAL: Non-focal PSYCHIATRIC: Normal affect, calm and cooperative. LINE: No evidence of infection Assessment & Plan Remarks IMPRESSION Fever, patient with newly Dx leukemia, monocytic - temps better - has possible folliculitis or hidradenitis L axilla, better - has tubes to R ear for infection - has new pulmonary infiltrates, ?infection, ?hemorrhage New bilateral infiltrates ? pneumonia - BNP 300+ - echo good LV function RECOMMENDATION Continue vanco IV and Cefepime Continue Levaquin Follow temps Follow C/S. follow sputum culture and clinically to determine need for bronchoscopy. Monitor progress Continue Vanco IV for now if sputum culture does not show any MRSA will likely stop vancomycin IV. The left axillary folliculitis area appears to be nontender and not in acute source of infection at the present time. Abigail Roberson MD May 21, 2017 18:45
--- NOTE | 2017-05-21 20:00 | HHI.PR ---
Subjective Remarks 66 YOWM with ac Monomyelocytik leuk, bilat infilt Minimal hemoptysis no Fever Feels better Still has pancytopenia Objective Vital Signs Vital Signs Date Time Temp Pulse Resp B/P Pulse Ox O2 Delivery O2 Flow Rate FiO2 05/21/17 16:13 90 05/21/17 16:00 112 20 138/67 100 05/21/17 15:42 93 Nasal Cannula 4.00 05/21/17 14:28 97.6 104 16 121/69 98 05/21/17 12:06 105 05/21/17 12:00 96.5 107 20 118/72 100 05/21/17 11:58 97.9 96 16 124/71 99 05/21/17 11:08 98.1 87 16 111/69 98 05/21/17 08:51 97 Nasal Cannula 4.00 05/21/17 08:22 Nasal Cannula 4.00 05/21/17 08:00 97.8 96 20 133/63 94 05/21/17 07:52 70 05/21/17 06:00 75 05/21/17 04:00 98.2 83 18 120/72 92 05/21/17 00:07 68 05/21/17 00:00 97.4 70 16 115/65 97 05/20/17 21:10 96 Nasal Cannula 4.00 05/20/17 20:20 100 Nasal Cannula 4.00 05/20/17 20:06 95 I/O 05/20/17 05/20/17 05/20/17 05/21/17 05/21/17 05/21/17 07:00 15:00 23:00 07:00 15:00 23:00 Intake Total 840 ml 1383 ml 400 ml 840 ml Output Total 1350 ml 2450 ml 1175 ml 750 ml 3600 ml Balance -1350 ml -1610 ml 208 ml -350 ml -2760 ml Intake Oral 840 ml 840 ml IV Total 1383 ml 400 ml Output Urine Total 1350 ml 2450 ml 1175 ml 750 ml 3600 ml # Bowel Movements 1 Result Diagram: 05/21/17 0600 05/21/17 0600 Objective Remarks GENERAL: WMWN WM, NAD SKIN: Warm and dry. HEAD: Normocephalic. EYES: No scleral icterus. No injection or drainage. NECK: Supple, trachea midline. No JVD or lymphadenopathy. CARDIOVASCULAR: Regular rate and rhythm without murmurs, gallops, or rubs. RESPIRATORY: Breath sounds equal bilaterally. No accessory muscle use. GASTROINTESTINAL: Abdomen soft, non-tender, nondistended. MUSCULOSKELETAL: No cyanosis, or edema. BACK: Nontender without obvious deformity. No CVA tenderness. A/P Assessment and Plan Bilat Infilt Pleural effusion mild Hemoptysis Ac Monomyelocytic Leukemia Pancytopenia PLAN" Cont Abx per ID monitor pl fluid Supplement 02 Hemoptysis resolved. Wean 02 Monitor CBC Donald Mayo MD May 21, 2017 20:00
[2017-05-22] VITALS (17 sets, daily range): BP systolic 106–152; BP diastolic 63–84; PULSE 63–109; RESP 16–24; TEMP 97.4–98.3; O2SAT 93–99
[2017-05-22] MEDS: SODIUM CHLOR 0.9% 1000 ML INJ 1,000 ML IV SCH ×2 (03:44→07:27)
[2017-05-22] MEDS: VANCOMYCIN INJ 1,500 MG in SODIUM CHLOR 0.9% 250 ML INJ 250 ML IV SCH ×2 (04:50→17:50)
[2017-05-22] MEDS ORDERED: CYTARABINE IV SCH (05:00)
[2017-05-22] MEDS ORDERED: SODIUM CHLORID 0.9% IV SCH (05:00)
[2017-05-22 06:13] LABS: HEMATOCRIT 22.1 % (39.0-51.0); MEAN CELL VOLUME 91.5 FL (80.0-100.0); MEAN CORPUSCULAR HEMOGLOBIN 31.4 PG (27.0-34.0); MEAN CORPUSCULAR HGB CONC 34.3 % (32.0-36.0); RED BLOOD COUNT 2.42 MIL/MM3 (4.50-5.90); RED CELL DISTRIBUTION WIDTH 18.4 % (11.6-17.2); WHITE BLOOD COUNT 0.4 TH/MM3 (4.0-11.0)
[2017-05-22 06:22] LABS: PLATELET COUNT 13 TH/MM3 (150-450)
[2017-05-22 06:24] LABS: HEMO FLAGS AUTO DIFF
[2017-05-22 06:27] LABS: ANION GAP 6 MEQ/L (5-15); AST (GOT) 9 U/L (15-37); BLOOD UREA NITROGEN 26 MG/DL (7-18); CHLORIDE 103 MEQ/L (98-107); GLOMERULAR FILTRATION RATE 128 ML/MIN (>89); MAGNESIUM 2.1 MG/DL (1.5-2.5); SODIUM (NA) 138 MEQ/L (136-145)
[2017-05-22 06:29] LABS: ALT (GPT) 17 U/L (12-78)
[2017-05-22 06:30] LABS: ALKALINE PHOSPHATASE 55 U/L (45-117); TOTAL BILIRUBIN ADULT 1.6 MG/DL (0.2-1.0)
[2017-05-22] MEDS: INSULIN ASPART SUPPLEMENTAL SCALE SQ SCH ×4 (06:37→20:41)
[2017-05-22] MEDS: RESP: ALBUTEROL 2.5 MG/IPRATROPIUM 0.5 MG NEB (SCH) NEB ×4 (07:59→21:45)
[2017-05-22] MEDS: CEFEPIME INJ 2,000 MG in SODIUM CHLORIDE 0.9% INJ 100 ML IV SCH ×2 (08:18→20:36)
[2017-05-22] MEDS: FUROSEMIDE 40 MG/4 ML VIAL IV PUSH SCH (08:27)
[2017-05-22] MEDS: METOPROLOL TARTRATE 50 MG TAB PO SCH ×2 (08:27→20:38)
[2017-05-22] MEDS: LISINOPRIL 20 MG TAB PO SCH (08:27)
[2017-05-22] MEDS: DOCUSATE SODIUM 50 MG/SENNA 8.6 MG TAB PO SCH ×2 (08:27→20:38)
[2017-05-22] MEDS: LEVOFLOXACIN 750 MG TAB PO SCH (08:27)
[2017-05-22] MEDS: ATORVASTATIN 20 MG TAB PO SCH (08:27)
[2017-05-22] MEDS: SODIUM CHLORIDE 0.9% FLUSH 10 ML FLUSH IV FLUSH SCH ×2 (09:00→20:38)
[2017-05-22] MEDS: SODIUM CHLORIDE 0.9% FLUSH 10 ML FLUSH IVF SCH (09:00)
[2017-05-22 09:14] LABS: PLATELET ESTIMATE SMEAR RARE (NORMAL); PLATELET MORPHOLOGY NORMAL (NORMAL); POLYS (SEG NEUTROPHILS) 2 % (16-70); SCAN/DIFF FINAL DIFF MANUAL; WBC DIFF SAMPLE 50
[2017-05-22] MEDS ORDERED: DEXAMETHASONE SOD PHOS 20 MG/5 ML VIAL IV ONE (09:15)
[2017-05-22] MEDS ORDERED: GRANISETRON HCL 1 MG/ML VIAL IV ONE (09:15)
--- NOTE | 2017-05-22 09:22 | PD.ONC.PN ---
Subjective Subjective Remarks Patient seen and examined, denies acute complaints other than fatigue. He denies mouth sores, difficulty breathing, cough, hemoptysis, chest pain, nausea, vomiting. He did have 2 soft/loose bowel movements earlier this morning. Denies overt bleeding. Objective Data Date Time Temp Pulse Resp B/P Pulse Ox O2 Delivery O2 Flow Rate FiO2 05/22/17 08:31 97.6 109 16 137/84 93 05/22/17 07:59 97 Nasal Cannula 4.00 05/22/17 06:05 82 05/22/17 00:40 97.7 84 16 129/63 99 05/22/17 00:11 79 05/22/17 00:00 97.6 84 16 135/80 99 05/22/17 00:00 100 05/21/17 21:41 98.2 101 16 126/60 100 05/21/17 20:40 Nasal Cannula 4.00 21 05/21/17 16:13 90 05/21/17 16:00 112 20 138/67 100 05/21/17 15:42 93 Nasal Cannula 4.00 05/21/17 14:28 97.6 104 16 121/69 98 05/21/17 12:06 105 05/21/17 12:00 96.5 107 20 118/72 100 05/21/17 11:58 97.9 96 16 124/71 99 05/21/17 11:08 98.1 87 16 111/69 98 05/22/17 05/22/17 05/22/17 07:00 15:00 23:00 Intake Total 250 ml 2500 ml Output Total 1200 ml 1400 ml Balance -950 ml 1100 ml Result Diagram: 05/22/17 0500 05/22/17 0500 Laboratory Results Laboratory Tests Test 05/22/17 05:00 White Blood Count 0.4 TH/MM3 Red Blood Count 2.42 MIL/MM3 Hemoglobin 7.6 GM/DL Hematocrit 22.1 % Mean Corpuscular Volume 91.5 FL Mean Corpuscular Hemoglobin 31.4 PG Mean Corpuscular Hemoglobin 34.3 % Concent Red Cell Distribution Width 18.4 % Platelet Count 13 TH/MM3 Mean Platelet Volume 7.8 FL Neutrophils (%) (Auto) % Lymphocytes (%) (Auto) % Monocytes (%) (Auto) % Eosinophils (%) (Auto) % Basophils (%) (Auto) % Neutrophils # (Auto) TH/MM3 Lymphocytes # (Auto) TH/MM3 Monocytes # (Auto) TH/MM3 Eosinophils # (Auto) TH/MM3 Basophils # (Auto) TH/MM3 CBC Comment AUTO DIFF Differential Total Cells 50 Counted Neutrophils % (Manual) 2 % Lymphocytes % 98 % Neutrophils # (Manual) 0.0 TH/MM3 Differential Comment FINAL DIFF MANUAL Platelet Estimate RARE Platelet Morphology Comment NORMAL Sodium Level 138 MEQ/L Potassium Level 4.0 MEQ/L Chloride Level 103 MEQ/L Carbon Dioxide Level 29.0 MEQ/L Anion Gap 6 MEQ/L Blood Urea Nitrogen 26 MG/DL Creatinine 0.63 MG/DL Estimat Glomerular Filtration 128 ML/MIN Rate Random Glucose 133 MG/DL Calcium Level 8.2 MG/DL Magnesium Level 2.1 MG/DL Total Bilirubin 1.6 MG/DL Aspartate Amino Transf 9 U/L (AST/SGOT) Alanine Aminotransferase 17 U/L (ALT/SGPT) Alkaline Phosphatase 55 U/L Total Protein 5.5 GM/DL Albumin 2.5 GM/DL Culture Results Microbiology Date/Time Procedure Status Source Growth 05/20/17 20:30 Gram Stain - Final Resulted Sputum Expectorated Sputum 05/20/17 20:30 Sputum Culture Resulted Sputum Expectorated Sputum Pending Administered Medications Medications (Trade) Dose Ordered Sig/Maritza Route PRN Reason Start Time Stop Time Status Last Admin Dose Admin Sodium Chloride (NS Flush) 2 ml UNSCH PRN IV FLUSH FLUSH AFTER USING IV ACCESS 05/10/17 15:00 05/15/17 03:47 Sodium Chloride (NS Flush) 2 ml BID IV FLUSH 05/10/17 21:00 05/21/17 08:13 Acetaminophen (Tylenol) 650 mg Q4H PRN PO TEMP > 100.4 OR PREMEDICATION FOR BLOOD PRODUCT 05/10/17 15:00 05/21/17 10:39 Senna/Docusate Sodium (Cinthia-Colace) 1 tab BID PO 05/10/17 21:00 05/20/17 08:18 Amlodipine Besylate (Norvasc) 5 mg DAILY PO 05/11/17 09:00 Hold 05/14/17 10:17 Atorvastatin Calcium (Lipitor) 20 mg DAILY PO 05/11/17 09:00 05/22/17 08:27 Lisinopril 20 mg 20 mg DAILY PO 05/11/17 09:00 05/22/17 08:27 Cefepime HCl/ Sodium Chloride (Maxipime Inj/NS Inj) 100 ml @ 200 mls/hr Q12H IV 05/11/17 08:00 05/22/17 08:18 Oxycodone HCl (Roxicodone) 5 mg Q4H PRN PO PAIN SCALE 3 TO 5 05/11/17 12:00 05/12/17 01:23 Metoprolol Tartrate 75 mg 75 mg BID PO 05/14/17 21:00 05/22/17 08:27 Sodium Chloride (NS 1000 ml Inj) 1,000 ml @ 30 mls/hr Q24H IV 05/15/17 12:00 05/22/17 07:27 Levofloxacin (Levaquin) 750 mg DAILY PO 05/15/17 14:00 05/22/17 08:27 Diphenhydramine HCl (Benadryl) 25 mg Q4H PRN PO PRE-MEDICATE FOR BLOOD PRODUCT 05/15/17 15:30 05/21/17 10:39 Furosemide 40 mg 40 mg DAILY IV PUSH 05/18/17 09:00 05/22/17 08:27 Vancomycin HCl 1500 mg/Sodium Chloride 265 ml @ 132.5 mls/ hr Q12H IV 05/19/17 05:00 05/22/17 04:50 Cytarabine/Sodium Chloride (Dodie C Inj/NS 500 ml Inj) 500 ml @ 20.833 mls/ hr Q24H IV 05/22/17 05:00 05/23/17 04:59 05/22/17 08:20 Objective Remarks GENERAL: Middle-aged/elderly male, laying in bed, appears to be no acute distress. SKIN: Warm and dry. HEAD: Normocephalic. EYES: No scleral icterus. No injection or drainage. Conjunctivae are pale. NECK: Supple, trachea midline. No JVD or lymphadenopathy. LYMPHATIC: No adenopathy. Chest: Right-sided tunneled catheter. CARDIOVASCULAR: Irregular rhythm without murmurs. RESPIRATORY: Breath sounds equal bilaterally. No accessory muscle use. GASTROINTESTINAL: Abdomen soft, non-tender, nondistended. EXTREMITIES: No cyanosis, or edema. MUSCULOSKELETAL: Adequate muscle tone. NEUROLOGICAL: No obvious focal deficit. Awake, alert, and oriented x3. PSYCHIATRIC: Appropriate mood and affect; insight and judgment normal. 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 Started on induction systemic chemotherapy with idarubicin/cytarabine (3+7) on . (2) Neutropenic fever Status: Acute Plan: Presently on empiric antibiotic therapy with cefepime, levofloxacin and vancomycin. Blood cultures and urine cultures are negative to date. He has been afebrile over the past 48 hours. (3) Hyperbilirubinemia Status: Acute Plan: --combination of direct and indirect elevated. --unclear etiology --will obtain hepatitis panel, monitor (4) Respiratory insufficiency Status: Acute Plan: --CXR shows worsening aeration. --pulmonology following --CT chest shows alveolar infiltrates. 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 Plan 1. AMML: Today is day 7 cytarabine, chemotherapy infusion will be completed later today. Continue monitoring daily CBCs and chemistries. Continue supportive transfusions. 2. He is cytopenic, continue supportive transfusions with irradiated and CMV negative blood products. 3. Febrile neutropenia: He remains neutropenic, on empiric IV antibiotic therapy. Appreciate infectious diseases input and assistance. Continue ongoing care. Once induction chemotherapy has been completed he will remain in the hospital until his counts recover. Typically restaging bone marrow biopsy is obtained between 10-14 days post completion of induction chemotherapy. Problem Qualifiers (1) Acute myelomonocytic leukemia: Qualified Code: C92.50 - Acute myelomonocytic leukemia not having achieved remission Dwain Diez MD May 22, 2017 09:22
[2017-05-22] MEDS: ACETAMINOPHEN 325 MG TAB PO PRN (10:13)
[2017-05-22] MEDS: diphenhydrAMINE HCL 25 MG CAP PO PRN (10:13)
--- NOTE | 2017-05-22 11:11 | HHI.PR ---
Subjective Remarks Platelets dropped to 13 today. Patient denies having any bleeding . No rash on his body. Eating well. No n/v/d/c/. No fever or chills overnight. Objective Vitals Vital Signs Date Time Temp Pulse Resp B/P Pulse Ox O2 Delivery O2 Flow Rate FiO2 05/22/17 09:20 Nasal Cannula 4.00 05/22/17 08:31 97.6 109 16 137/84 93 05/22/17 07:59 97 Nasal Cannula 4.00 05/22/17 06:05 82 05/22/17 00:40 97.7 84 16 129/63 99 05/22/17 00:11 79 05/22/17 00:00 97.6 84 16 135/80 99 05/22/17 00:00 100 05/21/17 21:41 98.2 101 16 126/60 100 05/21/17 20:40 Nasal Cannula 4.00 21 05/21/17 16:13 90 05/21/17 16:00 112 20 138/67 100 05/21/17 15:42 93 Nasal Cannula 4.00 05/21/17 14:28 97.6 104 16 121/69 98 05/21/17 12:06 105 05/21/17 12:00 96.5 107 20 118/72 100 05/21/17 11:58 97.9 96 16 124/71 99 I/O 05/21/17 05/21/17 05/21/17 05/22/17 05/22/17 05/22/17 07:00 15:00 23:00 07:00 15:00 23:00 Intake Total 400 ml 840 ml 200 ml 250 ml 2500 ml Output Total 750 ml 3600 ml 150 ml 1200 ml 2150 ml Balance -350 ml -2760 ml 50 ml -950 ml 350 ml Intake Oral 840 ml 200 ml 250 ml IV Total 400 ml 2500 ml Output Urine Total 750 ml 3600 ml 150 ml 1200 ml 2150 ml # Bowel Movements 0 1 Result Diagram: 05/22/17 0500 05/22/17 0500 Imaging Last Impressions Chest X-Ray 05/18/17 0000 Signed Impressions: Service Date/Time: Thursday, May 18, 2017 14:54 - CONCLUSION: Stable parenchymal opacity in both lungs. Ryan Hoover MD FACR Catheter Placement X-Ray 05/18/17 0000 Signed Impressions: Service Date/Time: Thursday, May 18, 2017 16:40 - CONCLUSION: Uncomplicated ultrasound and fluoroscopic guided dual lumen Jang catheter implantation as described. Emerson Carrasquillo MD Chest CT 05/17/17 0000 Signed Impressions: Service Date/Time: April 17:53 - CONCLUSION: 1. Bilateral alveolar infiltrates most characteristic of pulmonary edema. 2. Small to moderate bilateral pleural effusions. 3. Small amount of pericardial fluid. 4. Coronary artery calcifications. 5. Prominent left lobe of the thyroid with low attenuation nodular area. Braxton Tidwell MD Bone Biopsy CT 05/11/17 1309 Signed Impressions: Service Date/Time: Thursday, May 11, 2017 15:10 - CONCLUSION: 1. Uncomplicated CT guided bone marrow aspirate. 2. Uncomplicated CT guided bone marrow biopsy. Ryan Hoover MD FACR Soft Tissue Ultrasound 05/11/17 0000 Signed Impressions: Service Date/Time: Thursday, May 11, 2017 08:27 - CONCLUSION: Negative for abscess. Edematous changes in the soft tissues of the left axilla. Hank Nixon MD Objective Remarks GENERAL: 66 yo male, hard of hearing. Not in distress. NECK: Trachea midline. CARDIOVASCULAR: Irregularly irregular. RESPIRATORY: Clear to auscultation. Breath sounds equal bilaterally. No wheezes. GASTROINTESTINAL: Abdomen soft, non-tender, nondistended. No palpable masses. No guarding. MUSCULOSKELETAL: Extremities without edema. No joint tenderness, effusion, or edema noted. NEUROLOGICAL: Awake and alert. Cranial nerves II through XII intact. Motor and sensory grossly within normal limits. Normal speech. Hard of hearing, reads lips. A/P Problem List: (1) Pancytopenia ICD Code: D61.818 Status: Acute (2) Macrocytic anemia ICD Code: D53.9 Status: Acute (3) Alcohol abuse ICD Code: F10.10 Status: Acute (4) S/P tympanic tube insertion ICD Code: Z96.22 Status: Acute Assessment and Plan This is a 66-year-old male with acute myelomonocytic anemia and neutropenic fever. Acute myelomonocytic anemia -Medical oncology following, suspecting myeloproliferative neoplasm/CMML. HIV negative. S/p bone marrow biopsy. Pathology revealed acute myelomonocytic leukemia. -Started induction chemotherapy once has been completed he will remain in the hospital until his counts recover per Dr Diez hem/onc -Hemoglobin 6.9 today, for transfusion again. Continue chemotherapy per hematology, continue steroids. Neutropenic fever/ Left axillary cellulitis -US axilla negative for abscess. CXR and UA unremarkable. ID consult appreciated. Repeat chest x-ray with diffuse parenchymal opacities, worsening aeration. Continue IV vancomycin, Levaquin and cefepime. Sputum culture pending, still neutropenic. Acute respiratory failure, hemoptysis, pleural effusion - possible Pneumonia noted on x-ray. Continue antibiotics Echo with normal EF. Coughs up bloody sputum. Pulmonology consult appreciated. CT chest with alveolar infiltrates consistent with pulmonary edema. Might need bronchoscopy , continue antibiotics and oxygen support. BMP stable. HTN Currently stable.Continue home medications lisinopril, increase metoprolol. Amlodipine on hold. Afib, controlled rate -Rate elevated at times. Exacerbated by infection. - Monitor tele. Eliquis on hold for pancytopenia, continue Lopressor, dose increased Ear pain S/p tympanic tube placement by ENT for chronic ear infection. - continue antibiotics. - outpt follow up. Alcohol abuse Chronic. - Withdrawal precautions: sz and fall precaution in place. - Encouraged to quit. - on CIWA protocol if needed. Hyperglycemia S/t dexamethasone. - cover with insulin sliding scale. PPx: SCDs, pharmacological prophylaxis contraindicated because of anemia. Discharge Planning Once cleared by hematology, likely DC home with home health care Adalgisa Garcia MD May 22, 2017 11:11
--- NOTE | 2017-05-22 15:34 | HHI.PR ---
Subjective Remarks 66 YOWM with ac Monomyelocytik leuk, bilat infilt Minimal hemoptysis no Fever Feels better Up in chair. Objective Vital Signs Vital Signs Date Time Temp Pulse Resp B/P Pulse Ox O2 Delivery O2 Flow Rate FiO2 05/22/17 12:30 94 05/22/17 12:10 97.4 97 16 123/68 97 05/22/17 12:00 97.4 97 24 123/68 97 05/22/17 11:06 97.4 97 16 106/67 99 05/22/17 09:20 Nasal Cannula 4.00 05/22/17 08:31 97.6 109 16 137/84 93 05/22/17 08:02 85 05/22/17 07:59 97 Nasal Cannula 4.00 05/22/17 06:05 82 05/22/17 00:40 97.7 84 16 129/63 99 05/22/17 00:11 79 05/22/17 00:00 97.6 84 16 135/80 99 05/22/17 00:00 100 05/21/17 21:41 98.2 101 16 126/60 100 05/21/17 20:40 Nasal Cannula 4.00 21 05/21/17 16:13 90 05/21/17 16:00 112 20 138/67 100 05/21/17 15:42 93 Nasal Cannula 4.00 I/O 05/21/17 05/21/17 05/21/17 05/22/17 05/22/17 05/22/17 07:00 15:00 23:00 07:00 15:00 23:00 Intake Total 400 ml 840 ml 200 ml 250 ml 3220 ml Output Total 750 ml 3600 ml 150 ml 1200 ml 3000 ml Balance -350 ml -2760 ml 50 ml -950 ml 220 ml Intake Oral 840 ml 200 ml 250 ml 720 ml IV Total 400 ml 2500 ml Output Urine Total 750 ml 3600 ml 150 ml 1200 ml 3000 ml # Bowel Movements 0 1 Result Diagram: 05/22/17 0500 05/22/17 0500 Objective Remarks GENERAL: WMWN WM, NAD SKIN: Warm and dry. HEAD: Normocephalic. EYES: No scleral icterus. No injection or drainage. NECK: Supple, trachea midline. No JVD or lymphadenopathy. CARDIOVASCULAR: Regular rate and rhythm without murmurs, gallops, or rubs. RESPIRATORY: Breath sounds equal bilaterally. No accessory muscle use. GASTROINTESTINAL: Abdomen soft, non-tender, nondistended. MUSCULOSKELETAL: No cyanosis, or edema. BACK: Nontender without obvious deformity. No CVA tenderness. A/P Assessment and Plan Bilat Infilt Pleural effusion mild Hemoptysis Ac Monomyelocytic Leukemia Pancytopenia PLAN" Cont Abx per ID monitor pl fluid Supplement 02 Monitor CBC Donald Mayo MD May 22, 2017 15:34
--- NOTE | 2017-05-22 18:17 | HHI.PR ---
Addendum to Inpatient Note Addendum Reason: Additional Documentation Additional Information Sputum with normal resp antwan. DC Vanco IV. Continue Zosyn IV for now. Will follow in am. Abigail Roberson MD May 22, 2017 18:17
[2017-05-23] VITALS (8 sets, daily range): BP systolic 114–145; BP diastolic 56–88; PULSE 77–96; RESP 16–18; TEMP 97.2–98.2; O2SAT 92–96
[2017-05-23] MEDS: INSULIN ASPART SUPPLEMENTAL SCALE SQ SCH ×4 (06:04→23:04)
[2017-05-23 07:24] LABS: HEMATOCRIT 23.3 % (39.0-51.0); MEAN CELL VOLUME 90.6 FL (80.0-100.0); MEAN CORPUSCULAR HEMOGLOBIN 32.2 PG (27.0-34.0); MEAN CORPUSCULAR HGB CONC 35.6 % (32.0-36.0); RED BLOOD COUNT 2.57 MIL/MM3 (4.50-5.90); RED CELL DISTRIBUTION WIDTH 17.6 % (11.6-17.2); WHITE BLOOD COUNT 0.4 TH/MM3 (4.0-11.0)
[2017-05-23 07:29] LABS: HEMO FLAGS AUTO DIFF
[2017-05-23 07:32] LABS: PLATELET COUNT 17 TH/MM3 (150-450)
--- NOTE | 2017-05-23 07:59 | PD.ONC.PN ---
Subjective Subjective Remarks Patient denies complaints, reports tolerating chemotherapy without difficulties. Has been walking in the room, eating well, moving his bowels. He denies fevers, chills, night sweats, overt bleeding, difficulty breathing, chest pain or abdominal pain. Cytarabine infusion has continued overnight, he has about 2 hours remaining. Objective Data Date Time Temp Pulse Resp B/P Pulse Ox O2 Delivery O2 Flow Rate FiO2 05/23/17 06:07 97.2 78 16 145/88 93 05/23/17 00:00 98.2 80 16 114/56 95 05/22/17 21:48 93 Nasal Cannula 3.00 05/22/17 20:40 93 Nasal Cannula 3.00 05/22/17 20:05 87 05/22/17 20:00 98.3 63 16 152/69 97 05/22/17 16:17 101 05/22/17 16:05 99 Nasal Cannula 3.00 05/22/17 16:00 98.1 88 21 119/74 98 05/22/17 12:30 94 05/22/17 12:10 97.4 97 16 123/68 97 05/22/17 12:00 97.4 97 24 123/68 97 05/22/17 11:06 97.4 97 16 106/67 99 05/22/17 09:20 Nasal Cannula 4.00 05/22/17 08:31 97.6 109 16 137/84 93 05/22/17 08:02 85 05/22/17 07:59 97 Nasal Cannula 4.00 05/23/17 05/23/17 05/23/17 07:00 15:00 23:00 Intake Total 300 ml Output Total 900 ml Balance -600 ml Result Diagram: 05/23/17 0605 05/22/17 0500 Laboratory Results Laboratory Tests Test 05/23/17 06:05 White Blood Count 0.4 TH/MM3 Red Blood Count 2.57 MIL/MM3 Hemoglobin 8.3 GM/DL Hematocrit 23.3 % Mean Corpuscular Volume 90.6 FL Mean Corpuscular Hemoglobin 32.2 PG Mean Corpuscular Hemoglobin 35.6 % Concent Red Cell Distribution Width 17.6 % Platelet Count 17 TH/MM3 Mean Platelet Volume 7.8 FL Neutrophils (%) (Auto) % Lymphocytes (%) (Auto) % Monocytes (%) (Auto) % Eosinophils (%) (Auto) % Basophils (%) (Auto) % Neutrophils # (Auto) TH/MM3 Lymphocytes # (Auto) TH/MM3 Monocytes # (Auto) TH/MM3 Eosinophils # (Auto) TH/MM3 Basophils # (Auto) TH/MM3 CBC Comment AUTO DIFF Culture Results Microbiology Date/Time Procedure Status Source Growth 05/20/17 20:30 Gram Stain - Final Resulted Sputum Expectorated Sputum 05/20/17 20:30 Sputum Culture - Preliminary Resulted Sputum Expectorated Sputum HEAVY GROWTH NORMAL RESPIRATORY PARDEEP... Administered Medications Medications (Trade) Dose Ordered Sig/Maritza Route PRN Reason Start Time Stop Time Status Last Admin Dose Admin Sodium Chloride (NS Flush) 2 ml UNSCH PRN IV FLUSH FLUSH AFTER USING IV ACCESS 05/10/17 15:00 05/15/17 03:47 Sodium Chloride (NS Flush) 2 ml BID IV FLUSH 05/10/17 21:00 05/21/17 08:13 Acetaminophen (Tylenol) 650 mg Q4H PRN PO TEMP > 100.4 OR PREMEDICATION FOR BLOOD PRODUCT 05/10/17 15:00 05/22/17 10:13 Senna/Docusate Sodium (Cinthia-Colace) 1 tab BID PO 05/10/17 21:00 05/20/17 08:18 Amlodipine Besylate (Norvasc) 5 mg DAILY PO 05/11/17 09:00 Hold 05/14/17 10:17 Atorvastatin Calcium (Lipitor) 20 mg DAILY PO 05/11/17 09:00 05/22/17 08:27 Lisinopril 20 mg 20 mg DAILY PO 05/11/17 09:00 05/22/17 08:27 Cefepime HCl/ Sodium Chloride (Maxipime Inj/NS Inj) 100 ml @ 200 mls/hr Q12H IV 05/11/17 08:00 05/22/17 20:36 Oxycodone HCl (Roxicodone) 5 mg Q4H PRN PO PAIN SCALE 3 TO 5 05/11/17 12:00 05/12/17 01:23 Metoprolol Tartrate 75 mg 75 mg BID PO 05/14/17 21:00 05/22/17 20:38 Sodium Chloride (NS 1000 ml Inj) 1,000 ml @ 30 mls/hr Q24H IV 05/15/17 12:00 05/22/17 07:27 Levofloxacin (Levaquin) 750 mg DAILY PO 05/15/17 14:00 05/22/17 08:27 Diphenhydramine HCl (Benadryl) 25 mg Q4H PRN PO PRE-MEDICATE FOR BLOOD PRODUCT 05/15/17 15:30 05/22/17 10:13 Furosemide (Lasix Inj) 40 mg DAILY IV PUSH 05/18/17 09:00 05/22/17 08:27 Objective Remarks GENERAL: Middle-aged/elderly male, laying in bed, appears to be no acute distress. SKIN: Warm and dry. HEAD: Normocephalic. EYES: No scleral icterus. No injection or drainage. Conjunctivae are pale. NECK: Supple, trachea midline. No JVD or lymphadenopathy. LYMPHATIC: No adenopathy. Chest: Right-sided tunneled catheter. CARDIOVASCULAR: Irregular rhythm without murmurs. RESPIRATORY: Breath sounds equal bilaterally. No accessory muscle use. GASTROINTESTINAL: Abdomen soft, non-tender, nondistended. EXTREMITIES: No cyanosis, or edema. MUSCULOSKELETAL: Adequate muscle tone. NEUROLOGICAL: No obvious focal deficit. Awake, alert, and oriented x3. PSYCHIATRIC: Appropriate mood and affect; insight and judgment normal. 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 Started on induction systemic chemotherapy with idarubicin/cytarabine (3+7) on . (2) Neutropenic fever Status: Acute Plan: Presently on empiric antibiotic therapy with cefepime, levofloxacin and vancomycin. Blood cultures and urine cultures are negative to date. He has been afebrile over the past 48 hours. (3) Hyperbilirubinemia Status: Acute Plan: --combination of direct and indirect elevated. --unclear etiology --will obtain hepatitis panel, monitor (4) Respiratory insufficiency Status: Acute Plan: --CXR shows worsening aeration. --pulmonology following --CT chest shows alveolar infiltrates. 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 Plan 1. AMML: Today is day 7 cytarabine, chemotherapy infusion will be completed later today. Continue monitoring daily CBCs and chemistries. Continue supportive transfusions as needed. 2. He is cytopenic, continue supportive transfusions with irradiated and CMV negative blood products. 3. Febrile neutropenia: He remains neutropenic, on empiric IV antibiotic therapy (levofloxacin and cefepime). Appreciate infectious diseases input and assistance. All cultures remain negative. Continue ongoing care. Once induction chemotherapy has been completed he will remain in the hospital until his counts recover. Typically restaging bone marrow biopsy is obtained between 10-14 days post completion of induction chemotherapy. Problem Qualifiers (1) Acute myelomonocytic leukemia: Qualified Code: C92.50 - Acute myelomonocytic leukemia not having achieved remission Dwain Diez MD May 23, 2017 07:59
[2017-05-23] MEDS: RESP: ALBUTEROL 2.5 MG/IPRATROPIUM 0.5 MG NEB (SCH) NEB ×2 (08:13→12:10)
[2017-05-23 08:51] LABS: PLATELET ESTIMATE SMEAR RARE (NORMAL); PLATELET MORPHOLOGY NORMAL (NORMAL); POLYS (SEG NEUTROPHILS) 2 % (16-70); SCAN/DIFF FINAL DIFF MANUAL; WBC DIFF SAMPLE 50
[2017-05-23] MEDS: SODIUM CHLORIDE 0.9% FLUSH 10 ML FLUSH IVF SCH (09:00)
[2017-05-23] MEDS: DOCUSATE SODIUM 50 MG/SENNA 8.6 MG TAB PO SCH ×2 (09:00→21:00)
--- NOTE | 2017-05-23 09:43 | HHI.PR ---
Subjective Remarks Follow up for AML, neutropenia, thrombocytopenia. Mr. Gutiérrez is doing well. No fever, chills. No bleeding. Objective Vitals Vital Signs Date Time Temp Pulse Resp B/P Pulse Ox O2 Delivery O2 Flow Rate FiO2 05/23/17 08:16 96 05/23/17 08:00 97.7 96 18 122/76 92 05/23/17 06:07 97.2 78 16 145/88 93 05/23/17 00:00 98.2 80 16 114/56 95 05/22/17 21:48 93 Nasal Cannula 3.00 05/22/17 20:40 93 Nasal Cannula 3.00 05/22/17 20:05 87 05/22/17 20:00 98.3 63 16 152/69 97 05/22/17 16:17 101 05/22/17 16:05 99 Nasal Cannula 3.00 05/22/17 16:00 98.1 88 21 119/74 98 05/22/17 12:30 94 05/22/17 12:10 97.4 97 16 123/68 97 05/22/17 12:00 97.4 97 24 123/68 97 05/22/17 11:06 97.4 97 16 106/67 99 I/O 05/22/17 05/22/17 05/22/17 05/23/17 05/23/17 05/23/17 07:00 15:00 23:00 07:00 15:00 23:00 Intake Total 250 ml 3220 ml 250 ml 300 ml Output Total 1200 ml 3000 ml 2000 ml 900 ml Balance -950 ml 220 ml -1750 ml -600 ml Intake Oral 250 ml 720 ml 250 ml 300 ml IV Total 2500 ml Output Urine Total 1200 ml 3000 ml 2000 ml 900 ml # Bowel Movements 1 0 1 Result Diagram: 05/23/17 0605 05/22/17 0500 Imaging Last Impressions Chest X-Ray 05/23/17 0000 Signed Impressions: Service Date/Time: Tuesday, May 23, 2017 11:16 - CONCLUSION: Interval improvement when compared to 7. Ryan Hoover MD FACR Catheter Placement X-Ray 05/18/17 0000 Signed Impressions: Service Date/Time: Thursday, May 18, 2017 16:40 - CONCLUSION: Uncomplicated ultrasound and fluoroscopic guided dual lumen Jang catheter implantation as described. Emerson Carrasquillo MD Chest CT 05/17/17 0000 Signed Impressions: Service Date/Time: April 17:53 - CONCLUSION: 1. Bilateral alveolar infiltrates most characteristic of pulmonary edema. 2. Small to moderate bilateral pleural effusions. 3. Small amount of pericardial fluid. 4. Coronary artery calcifications. 5. Prominent left lobe of the thyroid with low attenuation nodular area. Braxton Tidwell MD Bone Biopsy CT 05/11/17 1309 Signed Impressions: Service Date/Time: Thursday, May 11, 2017 15:10 - CONCLUSION: 1. Uncomplicated CT guided bone marrow aspirate. 2. Uncomplicated CT guided bone marrow biopsy. Ryan Hoover MD FACR Soft Tissue Ultrasound 05/11/17 0000 Signed Impressions: Service Date/Time: Thursday, May 11, 2017 08:27 - CONCLUSION: Negative for abscess. Edematous changes in the soft tissues of the left axilla. Hank Nixon MD Objective Remarks GENERAL: AOX3, NAD. SKIN: Warm and dry. HEAD: Normocephalic. EYES: No scleral icterus. No injection or drainage. NECK: Supple, trachea midline. No JVD or lymphadenopathy. CARDIOVASCULAR: Regular rate and rhythm without murmurs, gallops, or rubs. RESPIRATORY: Breath sounds equal bilaterally. No accessory muscle use. GASTROINTESTINAL: Abdomen soft, non-tender, nondistended. MUSCULOSKELETAL: No cyanosis, or edema. BACK: Nontender without obvious deformity. No CVA tenderness. Procedures Echo 05/14/2017 CONCLUSIONS The left ventricular systolic function is normal with an estimated ejection fraction in the range of 55-60%. Wall thickness is measured at the upper limits of normal. The right ventricle is mildly dilated. Mild mitral valve regurgitation. There is trace tricuspid valve regurgitation. A/P Problem List: (1) Pancytopenia ICD Code: D61.818 Status: Acute (2) Macrocytic anemia ICD Code: D53.9 Status: Acute (3) Alcohol abuse ICD Code: F10.10 Status: Acute (4) S/P tympanic tube insertion ICD Code: Z96.22 Status: Acute Assessment and Plan Mr. Gutiérrez is a 66 y/o male with a history of HTN, HLD, AFIB and arthritis presented to the ED with complaints of dizziness and weakness. A recent blood work by PCP showed rapid decline in his H&H which prompted patient to seek medical attention. Due to pancytopenia, hematology/oncology was consulted. - Acute myelomonocytic anemia - -Medical oncology following, suspecting myeloproliferative neoplasm/CMML. HIV negative. - S/p bone marrow biopsy. Pathology revealed acute myelomonocytic leukemia. - Started induction chemotherapy once has been completed he will remain in the hospital until his counts recover per oncology. - Acute respiratory failure - Pleural effusion - Probable pneumonia - Left axillary cellulitis - Continue Cefepime and Levaquin. - ID discontinued Vancomycin. - CXR showed much improvement with minimal airspace disease. - We maybe able to discontinue Cefepime and keep patient on Levaquin only. - Hypertension - Hyperlipidemia - Continue atorvastatin 20 mg daily at bedtime, lisinopril 20 mg daily, metoprolol 75 mg by mouth twice a day - Atrial fibrillation - continue metoprolol 75 mg by mouth twice a day. No anticoagulant depression at this point. Full code. SCDs. HTN Currently stable.Continue home medications lisinopril, increase metoprolol. Amlodipine on hold. Afib, controlled rate -Rate elevated at times. Exacerbated by infection. - Monitor tele. Eliquis on hold for pancytopenia, continue Lopressor, dose increased Ear pain S/p tympanic tube placement by ENT for chronic ear infection. - continue antibiotics. - outpt follow up. Alcohol abuse Chronic. - Withdrawal precautions: sz and fall precaution in place. - Encouraged to quit. - on CIWA protocol if needed. Hyperglycemia S/t dexamethasone. - cover with insulin sliding scale. Braeden Stanley DO May 23, 2017 9:43 am
[2017-05-23] MEDS: ATORVASTATIN 20 MG TAB PO SCH (10:37)
[2017-05-23] MEDS: LEVOFLOXACIN 750 MG TAB PO SCH (10:38)
[2017-05-23] MEDS: SODIUM CHLORIDE 0.9% FLUSH 10 ML FLUSH IV FLUSH SCH ×2 (10:39→21:00)
[2017-05-23] MEDS: METOPROLOL TARTRATE 50 MG TAB PO SCH ×2 (10:39→22:51)
[2017-05-23] MEDS: LISINOPRIL 20 MG TAB PO SCH (10:39)
[2017-05-23] MEDS: FUROSEMIDE 40 MG/4 ML VIAL IV PUSH SCH (10:40)
[2017-05-23] MEDS: CEFEPIME INJ 2,000 MG in SODIUM CHLORIDE 0.9% INJ 100 ML IV SCH ×2 (10:44→22:51)
--- NOTE | 2017-05-23 11:06 | HHI.IDPN ---
Subjective Subjective Remarks ID Xcover for . is a 66 year old male, with newly Dx AML. Has had low grade temps. On induction chemotherapy at present time and tolerating well. Overnight events reviewed. No fevers Feels better. walked in hallway with a mask on. Denies any shortness of breath or blood in sputum. Denies any symptoms in armpit area. No N/V No diarrhea or abdominal pain. Antibiotics Cefepime IV Levaquin Lines KAYKAY Jang Past Medical History Atrial fibrillation Hypertension Hyperlipidemia Arthritis Past Surgical History Hernia repair Tonsillectomy Left knee replacement Allergies: Coded Allergies: No Known Allergies (Unverified , 05/10/17) Objective . Vital Signs Date Time Temp Pulse Resp B/P Pulse Ox O2 Delivery O2 Flow Rate FiO2 05/23/17 08:16 96 05/23/17 08:00 97.7 96 18 122/76 92 05/23/17 06:07 97.2 78 16 145/88 93 05/23/17 00:00 98.2 80 16 114/56 95 05/22/17 21:48 93 Nasal Cannula 3.00 05/22/17 20:40 93 Nasal Cannula 3.00 05/22/17 20:05 87 05/22/17 20:00 98.3 63 16 152/69 97 05/22/17 16:17 101 05/22/17 16:05 99 Nasal Cannula 3.00 05/22/17 16:00 98.1 88 21 119/74 98 05/22/17 12:30 94 05/22/17 12:10 97.4 97 16 123/68 97 05/22/17 12:00 97.4 97 24 123/68 97 05/22/17 11:06 97.4 97 16 106/67 99 05/22/17 05/22/17 05/23/17 15:00 23:00 07:00 Intake Total 3220 ml 250 ml 300 ml Output Total 3000 ml 2000 ml 900 ml Balance 220 ml -1750 ml -600 ml Intake Oral 720 ml 250 ml 300 ml IV Total 2500 ml Output Urine Total 3000 ml 2000 ml 900 ml # Bowel Movements 0 1 . Laboratory Tests Test 05/22/17 05/23/17 05:00 06:05 White Blood Count 0.4 TH/MM3 0.4 TH/MM3 Red Blood Count 2.42 MIL/MM3 2.57 MIL/MM3 Hemoglobin 7.6 GM/DL 8.3 GM/DL Hematocrit 22.1 % 23.3 % Mean Corpuscular Volume 91.5 FL 90.6 FL Mean Corpuscular Hemoglobin 31.4 PG 32.2 PG Mean Corpuscular Hemoglobin 34.3 % 35.6 % Concent Red Cell Distribution Width 18.4 % 17.6 % Platelet Count 13 TH/MM3 17 TH/MM3 Mean Platelet Volume 7.8 FL 7.8 FL Neutrophils (%) (Auto) % % Lymphocytes (%) (Auto) % % Monocytes (%) (Auto) % % Eosinophils (%) (Auto) % % Basophils (%) (Auto) % % Neutrophils # (Auto) TH/MM3 TH/MM3 Lymphocytes # (Auto) TH/MM3 TH/MM3 Monocytes # (Auto) TH/MM3 TH/MM3 Eosinophils # (Auto) TH/MM3 TH/MM3 Basophils # (Auto) TH/MM3 TH/MM3 CBC Comment AUTO DIFF AUTO DIFF Differential Total Cells 50 50 Counted Neutrophils % (Manual) 2 % 2 % Lymphocytes % 98 % 98 % Neutrophils # (Manual) 0.0 TH/MM3 0.0 TH/MM3 Differential Comment FINAL DIFF FINAL DIFF MANUAL MANUAL Platelet Estimate RARE RARE Platelet Morphology Comment NORMAL NORMAL Red Cell Morphology Comment NORMAL Laboratory Tests Test 05/22/17 05:00 Sodium Level 138 MEQ/L Potassium Level 4.0 MEQ/L Chloride Level 103 MEQ/L Carbon Dioxide Level 29.0 MEQ/L Anion Gap 6 MEQ/L Blood Urea Nitrogen 26 MG/DL Creatinine 0.63 MG/DL Estimat Glomerular Filtration 128 ML/MIN Rate Random Glucose 133 MG/DL Calcium Level 8.2 MG/DL Magnesium Level 2.1 MG/DL Total Bilirubin 1.6 MG/DL Aspartate Amino Transf 9 U/L (AST/SGOT) Alanine Aminotransferase 17 U/L (ALT/SGPT) Alkaline Phosphatase 55 U/L Total Protein 5.5 GM/DL Albumin 2.5 GM/DL Microbiology Date/Time Procedure Status Source Growth 05/20/17 20:30 Gram Stain - Final Resulted Sputum Expectorated Sputum 05/20/17 20:30 Sputum Culture - Preliminary Resulted Sputum Expectorated Sputum HEAVY GROWTH NORMAL RESPIRATORY PARDEEP... Imaging Chest X-Ray 05/17/17 0000 Signed Impressions: Service Date/Time: April 08:43 - CONCLUSION: Worsening aeration. Emerson Carrasquillo MD Chest CT 05/17/17 0000 Signed Impressions: Service Date/Time: April 17:53 - CONCLUSION: 1. Bilateral alveolar infiltrates most characteristic of pulmonary edema. 2. Small to moderate bilateral pleural effusions. 3. Small amount of pericardial fluid. 4. Coronary artery calcifications. 5. Prominent left lobe of the thyroid with low attenuation nodular area. Braxton Tidwell MD Chest X-Ray 05/12/17 0000 Signed Impressions: Service Date/Time: Friday, May 12, 2017 14:53 - CONCLUSION: Mild cardiomegaly. Emerson Farias MD Bone Biopsy CT 05/11/17 1309 Signed Impressions: Service Date/Time: Thursday, May 11, 2017 15:10 - CONCLUSION: 1. Uncomplicated CT guided bone marrow aspirate. 2. Uncomplicated CT guided bone marrow biopsy. Ryan Hoover MD FACR Soft Tissue Ultrasound 05/11/17 0000 Signed Impressions: Service Date/Time: Thursday, May 11, 2017 08:27 - CONCLUSION: Negative for abscess. Edematous changes in the soft tissues of the left axilla. Hank Nixon MD Physical Exam GENERAL: awake and alert, not in respiratory distress. SKIN: Warm and dry. No generalized rash, no ecchymoses and no evidence of embolic lesions. HEAD: Atraumatic. Normocephalic. No temporal wasting, or tenderness. EYES: Pale conjunctiva. No petechia or hemorrhage. Pupils equal, round and reactive to light. No scleral icterus. No injection or drainage. EARS, NOSE AND THROAT: Nose without bleeding or purulent nasal discharge. No sinus tenderness. Mucous membranes pink and moist. No oral lesions noted. He is edentulous. No drainage R ear NECK: Trachea midline. Supple and not tender, no meningeal signs CARDIOVASCULAR: Irregular rate and rhythm. No murmurs, rubs or gallops heard RESPIRATORY: Coarse BS bilaterally ABDOMEN: Soft, non-tender, nondistended. Bowel sounds present and normoactive. No guarding. No rebound. No organomegaly. EXTREMITIES: No clubbing, cyanosis, or edema. No joint effusion, has good ROM. No calf tenderness. L axilla - there is an indurated area about 2 inch x 1 in size, tender, with a small area of redness almost at the center. NEUROLOGICAL: Non-focal PSYCHIATRIC: Normal affect, calm and cooperative. LINE: No evidence of infection Assessment & Plan Remarks IMPRESSION Fever, patient with newly Dx leukemia, monocytic - temps better - has possible folliculitis or hidradenitis L axilla, better - has tubes to R ear for infection - has new pulmonary infiltrates, ?infection, ?hemorrhage New bilateral infiltrates ? pneumonia - BNP 300+ - echo good LV function RECOMMENDATION DCed vanco IV as no skin infection in armpit area. Also Gram stain negative for MRSA. Continue Cefepime IV Continue Levaquin Repeat CXR today. If repeat CXR negative may consider DC Cefepime and just keep on Levaquin while counts are low. Follow temps Follow C/S. follow sputum culture and clinically to determine need for bronchoscopy. Monitor progress dw Pt kit [facility] hospitalist. Abigail Roberson MD May 23, 2017 11:06
--- NOTE | 2017-05-23 12:23 | RADRPT ---
EXAM DATE/TIME: 05/23/2017 11:16 [facility] COMPARISON: CHEST PA & LAT, May 18, 2017, 14:54. CHEST SINGLE AP, May 17, 2017, 8:43. INDICATIONS : Patient has had productive cough and short of breath since last night. MEDICAL HISTORY : Cardiovascular disease. SURGICAL HISTORY : Tonsillectomy. Appendectomy. ENCOUNTER: Subsequent ACUITY: 2 weeks PAIN SCORE: 0/10 LOCATION: Bilateral chest FINDINGS: Central venous catheter is in good position. There is improvement with much better aeration of both lungs. Heart remains enlarged. Minimal airspace disease remains on the right. CONCLUSION: Interval improvement when compared to 2916. Ryan Hoover MD FACR on May 23, 2017 at 12:20 Board Certified Radiologist. This report was verified electronically.
--- NOTE | 2017-05-23 18:25 | HHI.PR ---
Subjective Remarks 66 YOWM with ac Monomyelocytik leuk, bilat infilt No hemoptysis no Fever Feels better Up in chair., ambulates in the room No new complaint Objective Vital Signs Vital Signs Date Time Temp Pulse Resp B/P Pulse Ox O2 Delivery O2 Flow Rate FiO2 05/23/17 16:00 97.9 77 18 138/80 92 05/23/17 12:00 98.0 85 18 144/82 93 05/23/17 10:00 94 Room Air 05/23/17 08:16 96 05/23/17 08:00 97.7 96 18 122/76 92 05/23/17 06:07 97.2 78 16 145/88 93 05/23/17 00:00 98.2 80 16 114/56 95 05/22/17 21:48 93 Nasal Cannula 3.00 05/22/17 20:40 93 Nasal Cannula 3.00 05/22/17 20:05 87 05/22/17 20:00 98.3 63 16 152/69 97 I/O 05/22/17 05/22/17 05/22/17 05/23/17 05/23/17 05/23/17 07:00 15:00 23:00 07:00 15:00 23:00 Intake Total 250 ml 3220 ml 250 ml 300 ml 1080 ml Output Total 1200 ml 3000 ml 2000 ml 900 ml 1200 ml Balance -950 ml 220 ml -1750 ml -600 ml -120 ml Intake Oral 250 ml 720 ml 250 ml 300 ml 1080 ml IV Total 2500 ml Output Urine Total 1200 ml 3000 ml 2000 ml 900 ml 1200 ml # Bowel Movements 1 0 1 0 Result Diagram: 05/23/17 0605 05/22/17 0500 Objective Remarks GENERAL: WMWN WM, NAD SKIN: Warm and dry. HEAD: Normocephalic. EYES: No scleral icterus. No injection or drainage. NECK: Supple, trachea midline. No JVD or lymphadenopathy. CARDIOVASCULAR: Regular rate and rhythm without murmurs, gallops, or rubs. RESPIRATORY: Breath sounds equal bilaterally. No accessory muscle use. GASTROINTESTINAL: Abdomen soft, non-tender, nondistended. MUSCULOSKELETAL: No cyanosis, or edema. BACK: Nontender without obvious deformity. No CVA tenderness. A/P Assessment and Plan Bilat Infilt Pleural effusion mild Hemoptysis Ac Monomyelocytic Leukemia Pancytopenia PLAN" Cont Abx per ID monitor pl fluid Supplement 02 Monitor CBC Donald Mayo MD May 23, 2017 18:25
[2017-05-23] MEDS: ONDANSETRON HCL 4 MG/2 ML VIAL IVP PRN (22:50)
[2017-05-24] VITALS (10 sets, daily range): BP systolic 101–125; BP diastolic 58–66; PULSE 78–95; RESP 16–18; TEMP 97.6–98.7; O2SAT 90–96
[2017-05-24] MEDS: INSULIN ASPART SUPPLEMENTAL SCALE SQ SCH ×4 (05:27→21:00)
[2017-05-24] MEDS: SODIUM CHLOR 0.9% 1000 ML INJ 1,000 ML IV SCH (05:27)
[2017-05-24 06:24] LABS: HEMATOCRIT 24.5 % (39.0-51.0); MEAN CELL VOLUME 89.9 FL (80.0-100.0); MEAN CORPUSCULAR HEMOGLOBIN 32.1 PG (27.0-34.0); MEAN CORPUSCULAR HGB CONC 35.7 % (32.0-36.0); RED BLOOD COUNT 2.73 MIL/MM3 (4.50-5.90); RED CELL DISTRIBUTION WIDTH 17.5 % (11.6-17.2); WHITE BLOOD COUNT 0.5 TH/MM3 (4.0-11.0)
[2017-05-24 06:27] LABS: HEMO FLAGS AUTO DIFF
[2017-05-24 06:28] LABS: PLATELET COUNT 14 TH/MM3 (150-450)
[2017-05-24 07:57] LABS: ALT (GPT) 21 U/L (12-78); ANION GAP 7 MEQ/L (5-15); BICARBONATE 30.5 MEQ/L (21.0-32.0); BLOOD UREA NITROGEN 27 MG/DL (7-18); CHLORIDE 101 MEQ/L (98-107); MAGNESIUM 1.9 MG/DL (1.5-2.5); POTASSIUM 4.1 MEQ/L (3.5-5.1); SODIUM (NA) 138 MEQ/L (136-145)
[2017-05-24 07:58] LABS: AST (GOT) 9 U/L (15-37); GLOMERULAR FILTRATION RATE 106 ML/MIN (>89)
[2017-05-24 07:59] LABS: ALKALINE PHOSPHATASE 66 U/L (45-117); TOTAL BILIRUBIN ADULT 2.2 MG/DL (0.2-1.0)
[2017-05-24 08:14] LABS: EOSINOPHILS 2 % (0-4); WBC DIFF SAMPLE 50
[2017-05-24 08:15] LABS: PLATELET ESTIMATE SMEAR RARE (NORMAL); PLATELET MORPHOLOGY NORMAL (NORMAL); SCAN/DIFF FINAL DIFF MANUAL
--- NOTE | 2017-05-24 08:31 | PD.ONC.PN ---
Subjective Subjective Remarks Had some nausea last night. Denies fevers or chills, overt bleeding. BMs remain loose but not watery. He has been walking in the hallways. Completed chemotherapy in the AM of 05/23. Objective Data Date Time Temp Pulse Resp B/P Pulse Ox O2 Delivery O2 Flow Rate FiO2 05/24/17 08:00 97.6 93 16 115/58 90 05/24/17 05:09 95 05/24/17 04:00 98.7 90 17 105/62 96 05/24/17 00:00 98.1 78 18 125/66 94 05/23/17 22:51 94 Room Air 05/23/17 20:05 83 05/23/17 19:39 94 21 05/23/17 16:00 97.9 77 18 138/80 92 05/23/17 12:00 98.0 85 18 144/82 93 05/23/17 10:00 94 Room Air 05/24/17 05/24/17 05/24/17 07:00 15:00 23:00 Intake Total 480 ml Output Total 2000 ml 325 ml Balance -1520 ml -325 ml Result Diagram: 05/24/17 0530 05/24/17 0712 Laboratory Results Laboratory Tests Test 05/24/17 05/24/17 05:30 07:12 White Blood Count 0.5 TH/MM3 Red Blood Count 2.73 MIL/MM3 Hemoglobin 8.8 GM/DL Hematocrit 24.5 % Mean Corpuscular Volume 89.9 FL Mean Corpuscular Hemoglobin 32.1 PG Mean Corpuscular Hemoglobin 35.7 % Concent Red Cell Distribution Width 17.5 % Platelet Count 14 TH/MM3 Mean Platelet Volume 8.2 FL Neutrophils (%) (Auto) % Lymphocytes (%) (Auto) % Monocytes (%) (Auto) % Eosinophils (%) (Auto) % Basophils (%) (Auto) % Neutrophils # (Auto) TH/MM3 Lymphocytes # (Auto) TH/MM3 Monocytes # (Auto) TH/MM3 Eosinophils # (Auto) TH/MM3 Basophils # (Auto) TH/MM3 CBC Comment AUTO DIFF Differential Total Cells 50 Counted Lymphocytes % 96 % Monocytes % 2 % Eosinophils % 2 % Neutrophils # (Manual) 0.0 TH/MM3 Differential Comment FINAL DIFF MANUAL Platelet Estimate RARE Platelet Morphology Comment NORMAL Sodium Level 138 MEQ/L Potassium Level 4.1 MEQ/L Chloride Level 101 MEQ/L Carbon Dioxide Level 30.5 MEQ/L Anion Gap 7 MEQ/L Blood Urea Nitrogen 27 MG/DL Creatinine 0.74 MG/DL Estimat Glomerular Filtration 106 ML/MIN Rate Random Glucose 136 MG/DL Calcium Level 8.3 MG/DL Magnesium Level 1.9 MG/DL Total Bilirubin 2.2 MG/DL Aspartate Amino Transf 9 U/L (AST/SGOT) Alanine Aminotransferase 21 U/L (ALT/SGPT) Alkaline Phosphatase 66 U/L Total Protein 6.2 GM/DL Albumin 2.9 GM/DL Administered Medications Medications (Trade) Dose Ordered Sig/Maritza Route PRN Reason Start Time Stop Time Status Last Admin Dose Admin Sodium Chloride (NS Flush) 2 ml UNSCH PRN IV FLUSH FLUSH AFTER USING IV ACCESS 05/10/17 15:00 05/15/17 03:47 Sodium Chloride (NS Flush) 2 ml BID IV FLUSH 05/10/17 21:00 05/23/17 10:39 Acetaminophen (Tylenol) 650 mg Q4H PRN PO TEMP > 100.4 OR PREMEDICATION FOR BLOOD PRODUCT 05/10/17 15:00 05/22/17 10:13 Ondansetron HCl (Zofran Inj) 4 mg Q6H PRN IVP NAUSEA OR VOMITING 05/10/17 15:00 05/23/17 22:50 Senna/Docusate Sodium (Cinthia-Colace) 1 tab BID PO 05/10/17 21:00 05/20/17 08:18 Amlodipine Besylate (Norvasc) 5 mg DAILY PO 05/11/17 09:00 Hold 05/14/17 10:17 Atorvastatin Calcium (Lipitor) 20 mg DAILY PO 05/11/17 09:00 05/23/17 10:37 Lisinopril 20 mg 20 mg DAILY PO 05/11/17 09:00 05/23/17 10:39 Cefepime HCl/ Sodium Chloride (Maxipime Inj/NS Inj) 100 ml @ 200 mls/hr Q12H IV 05/11/17 08:00 05/23/17 22:51 Oxycodone HCl (Roxicodone) 5 mg Q4H PRN PO PAIN SCALE 3 TO 5 05/11/17 12:00 05/12/17 01:23 Metoprolol Tartrate 75 mg 75 mg BID PO 05/14/17 21:00 05/23/17 22:51 Sodium Chloride (NS 1000 ml Inj) 1,000 ml @ 30 mls/hr Q24H IV 05/15/17 12:00 05/24/17 05:27 Levofloxacin (Levaquin) 750 mg DAILY PO 05/15/17 14:00 05/23/17 10:38 Diphenhydramine HCl (Benadryl) 25 mg Q4H PRN PO PRE-MEDICATE FOR BLOOD PRODUCT 05/15/17 15:30 05/22/17 10:13 Furosemide (Lasix Inj) 40 mg DAILY IV PUSH 05/18/17 09:00 05/23/17 10:40 Objective Remarks GENERAL: Middle-aged/elderly male, laying in bed, appears to be no acute distress. SKIN: Warm and dry. HEAD: Normocephalic. EYES: No scleral icterus. No injection or drainage. Conjunctivae are pale. NECK: Supple, trachea midline. No JVD or lymphadenopathy. LYMPHATIC: No adenopathy. Chest: Right-sided tunneled catheter. CARDIOVASCULAR: Irregular rhythm without murmurs. RESPIRATORY: Breath sounds equal bilaterally. No accessory muscle use. GASTROINTESTINAL: Abdomen soft, non-tender, nondistended. EXTREMITIES: No cyanosis, or edema. MUSCULOSKELETAL: Adequate muscle tone. NEUROLOGICAL: No obvious focal deficit. Awake, alert, and oriented x3. PSYCHIATRIC: Appropriate mood and affect; insight and judgment normal. 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 Started on induction systemic chemotherapy with idarubicin/cytarabine (3+7) on . Induction completed on 05/23/2017. (2) Neutropenic fever Status: Acute Plan: Presently on empiric antibiotic therapy with cefepime, levofloxacin and vancomycin. Blood cultures and urine cultures are negative to date. He has been afebrile over the past 48 hours. (3) Hyperbilirubinemia Status: Acute Plan: --combination of direct and indirect elevated. --unclear etiology --will obtain hepatitis panel, monitor (4) Respiratory insufficiency Status: Acute Plan: --CXR shows worsening aeration. --pulmonology following --CT chest shows alveolar infiltrates. 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 Plan 1. AMML: Today is day 8 cytarabine, chemotherapy infusion will be completed later today. Continue monitoring daily CBCs and chemistries. Continue supportive transfusions as needed. 2. He is cytopenic, continue supportive transfusions with irradiated and CMV negative blood products. 3. Febrile neutropenia: He remains neutropenic, on empiric IV antibiotic therapy (levofloxacin and cefepime). Appreciate infectious diseases input and assistance. All cultures remain negative. Continue ongoing care. Once induction chemotherapy has been completed he will remain in the hospital until his counts recover. Typically restaging bone marrow biopsy is obtained between 10-14 days post completion of induction chemotherapy. Problem Qualifiers (1) Acute myelomonocytic leukemia: Qualified Code: C92.50 - Acute myelomonocytic leukemia not having achieved remission Dwain Diez MD May 24, 2017 08:30
[2017-05-24] MEDS: CEFEPIME INJ 2,000 MG in SODIUM CHLORIDE 0.9% INJ 100 ML IV SCH (08:35)
[2017-05-24] MEDS: METOPROLOL TARTRATE 50 MG TAB PO SCH ×2 (08:36→22:33)
[2017-05-24] MEDS: ATORVASTATIN 20 MG TAB PO SCH (08:36)
[2017-05-24] MEDS: SODIUM CHLORIDE 0.9% FLUSH 10 ML FLUSH IVF SCH (08:36)
[2017-05-24] MEDS: LEVOFLOXACIN 750 MG TAB PO SCH (08:36)
[2017-05-24] MEDS: DOCUSATE SODIUM 50 MG/SENNA 8.6 MG TAB PO SCH ×2 (08:36→21:00)
[2017-05-24] MEDS: SODIUM CHLORIDE 0.9% FLUSH 10 ML FLUSH IV FLUSH SCH ×2 (08:36→21:00)
[2017-05-24] MEDS: FUROSEMIDE 40 MG/4 ML VIAL IV PUSH SCH (08:44)
[2017-05-24] MEDS: ACETAMINOPHEN 325 MG TAB PO PRN (11:14)
[2017-05-24] MEDS: diphenhydrAMINE HCL 25 MG CAP PO PRN (11:14)
--- NOTE | 2017-05-24 12:54 | HHI.PR ---
Subjective Remarks Follow up for AML, neutropenia, thrombocytopenia. Patient is currently doing well. Denies any chest pain, shortness of breath, fever or chills. Tolerating diet well. Objective Vitals Vital Signs Date Time Temp Pulse Resp B/P Pulse Ox O2 Delivery O2 Flow Rate FiO2 05/24/17 12:34 97.9 80 16 101/58 95 05/24/17 12:14 94 05/24/17 12:10 98.2 85 16 104/61 95 05/24/17 08:20 94 05/24/17 08:00 97.6 93 16 115/58 90 05/24/17 05:09 95 05/24/17 04:00 98.7 90 17 105/62 96 05/24/17 00:00 98.1 78 18 125/66 94 05/23/17 22:51 94 Room Air 05/23/17 20:05 83 05/23/17 19:39 94 21 05/23/17 16:00 97.9 77 18 138/80 92 I/O 05/23/17 05/23/17 05/23/17 05/24/17 05/24/17 05/24/17 07:00 15:00 23:00 07:00 15:00 23:00 Intake Total 300 ml 1080 ml 480 ml Output Total 900 ml 1200 ml 2000 ml 325 ml Balance -600 ml -120 ml -1520 ml -325 ml Intake Oral 300 ml 1080 ml 480 ml Output Urine Total 900 ml 1200 ml 2000 ml 325 ml # Bowel Movements 1 0 Result Diagram: 05/24/17 0530 05/24/17 0712 Imaging Last Impressions Chest X-Ray 05/23/17 0000 Signed Impressions: Service Date/Time: Tuesday, May 23, 2017 11:16 - CONCLUSION: Interval improvement when compared to 7. Ryan Hoover MD FACR Catheter Placement X-Ray 05/18/17 0000 Signed Impressions: Service Date/Time: Thursday, May 18, 2017 16:40 - CONCLUSION: Uncomplicated ultrasound and fluoroscopic guided dual lumen Jang catheter implantation as described. Emerson Carrasquillo MD Chest CT 05/17/17 0000 Signed Impressions: Service Date/Time: April 17:53 - CONCLUSION: 1. Bilateral alveolar infiltrates most characteristic of pulmonary edema. 2. Small to moderate bilateral pleural effusions. 3. Small amount of pericardial fluid. 4. Coronary artery calcifications. 5. Prominent left lobe of the thyroid with low attenuation nodular area. Braxton Tidwell MD Bone Biopsy CT 05/11/17 1309 Signed Impressions: Service Date/Time: Thursday, May 11, 2017 15:10 - CONCLUSION: 1. Uncomplicated CT guided bone marrow aspirate. 2. Uncomplicated CT guided bone marrow biopsy. Ryan Hoover MD FACR Soft Tissue Ultrasound 05/11/17 0000 Signed Impressions: Service Date/Time: Thursday, May 11, 2017 08:27 - CONCLUSION: Negative for abscess. Edematous changes in the soft tissues of the left axilla. Hank Nixon MD Objective Remarks GENERAL: AOX3, NAD. SKIN: Warm and dry. HEAD: Normocephalic. EYES: No scleral icterus. No injection or drainage. NECK: Supple, trachea midline. No JVD or lymphadenopathy. CARDIOVASCULAR: Regular rate and rhythm without murmurs, gallops, or rubs. RESPIRATORY: Breath sounds equal bilaterally. No accessory muscle use. GASTROINTESTINAL: Abdomen soft, non-tender, nondistended. MUSCULOSKELETAL: No cyanosis, or edema. BACK: Nontender without obvious deformity. No CVA tenderness. Procedures Echo 05/14/2017 CONCLUSIONS The left ventricular systolic function is normal with an estimated ejection fraction in the range of 55-60%. Wall thickness is measured at the upper limits of normal. The right ventricle is mildly dilated. Mild mitral valve regurgitation. There is trace tricuspid valve regurgitation. A/P Problem List: (1) Pancytopenia ICD Code: D61.818 Status: Acute (2) Macrocytic anemia ICD Code: D53.9 Status: Acute (3) Alcohol abuse ICD Code: F10.10 Status: Acute (4) S/P tympanic tube insertion ICD Code: Z96.22 Status: Acute Assessment and Plan Mr. Gutiérrez is a 66 y/o male with a history of HTN, HLD, AFIB and arthritis presented to the ED with complaints of dizziness and weakness. A recent blood work by PCP showed rapid decline in his H&H which prompted patient to seek medical attention. Due to pancytopenia, hematology/oncology was consulted. - Acute myelomonocytic anemia - -Medical oncology following. Patient will receive chemotherapy infusion today.Will obtain AM CBC, CMP. - S/p bone marrow biopsy. Pathology revealed acute myelomonocytic leukemia. - Started induction chemotherapy once has been completed he will remain in the hospital until his counts recover per oncology. - Acute respiratory failure - Pleural effusion - Probable pneumonia - Left axillary cellulitis - Currently on Cefepime and Levaquin. - ID discontinued Vancomycin. - CXR showed improvement with minimal airspace disease. - CXR image reviewed by me. CXR shows improvement. We will discontinue Cefepime and keep patient on Levaquin only. - Hypertension - Hyperlipidemia - Continue atorvastatin 20 mg daily at bedtime, lisinopril 20 mg daily, metoprolol 75 mg by mouth twice a day - Atrial fibrillation - continue metoprolol 75 mg by mouth twice a day. No anticoagulant depression at this point. Full code. SCDs. Braeden Stanley DO May 24, 2017 12:54 pm
[2017-05-24] MEDS: LISINOPRIL 20 MG TAB PO SCH (17:25)
--- NOTE | 2017-05-24 18:55 | HHI.PR ---
Subjective Remarks 66 YOWM with ac Monomyelocytik leuk, bilat infilt No hemoptysis no Fever Feels better Up in chair., ambulates in the room Appetite fair Objective Vital Signs Vital Signs Date Time Temp Pulse Resp B/P Pulse Ox O2 Delivery O2 Flow Rate FiO2 05/24/17 16:00 97.7 84 16 107/59 92 05/24/17 12:34 97.9 80 16 101/58 95 05/24/17 12:14 94 05/24/17 12:10 98.2 85 16 104/61 95 05/24/17 11:15 95 Room Air 21 05/24/17 08:20 94 05/24/17 08:00 97.6 93 16 115/58 90 05/24/17 05:09 95 05/24/17 04:00 98.7 90 17 105/62 96 05/24/17 00:00 98.1 78 18 125/66 94 05/23/17 22:51 94 Room Air 05/23/17 20:05 83 05/23/17 19:39 94 21 I/O 05/23/17 05/23/17 05/23/17 05/24/17 05/24/17 05/24/17 07:00 15:00 23:00 07:00 15:00 23:00 Intake Total 300 ml 1080 ml 480 ml 720 ml Output Total 900 ml 1200 ml 2000 ml 325 ml Balance -600 ml -120 ml -1520 ml 395 ml Intake Oral 300 ml 1080 ml 480 ml 720 ml Output Urine Total 900 ml 1200 ml 2000 ml 325 ml # Voids 3 # Bowel Movements 1 0 1 Result Diagram: 05/24/17 0530 05/24/17 0712 Objective Remarks GENERAL: WMWN WM, NAD SKIN: Warm and dry. HEAD: Normocephalic. EYES: No scleral icterus. No injection or drainage. NECK: Supple, trachea midline. No JVD or lymphadenopathy. CARDIOVASCULAR: Regular rate and rhythm without murmurs, gallops, or rubs. RESPIRATORY: Breath sounds equal bilaterally. No accessory muscle use. GASTROINTESTINAL: Abdomen soft, non-tender, nondistended. MUSCULOSKELETAL: No cyanosis, or edema. BACK: Nontender without obvious deformity. No CVA tenderness. A/P Assessment and Plan Bilat Infilt Pleural effusion mild Hemoptysis Ac Monomyelocytic Leukemia Pancytopenia PLAN" Cont Abx per ID monitor pl fluid Supplement 02 Monitor CBC Donald Mayo MD May 24, 2017 18:55
[2017-05-25] VITALS (11 sets, daily range): BP systolic 101–122; BP diastolic 58–74; PULSE 78–99; RESP 17–20; TEMP 96.9–98.5; O2SAT 96–99
[2017-05-25] MEDS: SODIUM CHLOR 0.9% 1000 ML INJ 1,000 ML IV SCH (05:06)
[2017-05-25] MEDS: INSULIN ASPART SUPPLEMENTAL SCALE SQ SCH ×4 (05:13→21:00)
[2017-05-25 07:53] LABS: EOSINOPHIL % 7.7 % (0.0-4.0); HEMATOCRIT 23.9 % (39.0-51.0); LYMPH % 90.3 % (9.0-44.0); LYMPHOCYTE # 0.4 TH/MM3 (1.0-4.8); MEAN CELL VOLUME 90.9 FL (80.0-100.0); MEAN CORPUSCULAR HEMOGLOBIN 30.9 PG (27.0-34.0); MONO % 0.2 % (0.0-8.0); NEUT % 1.8 % (16.0-70.0); PLATELET COUNT 22 TH/MM3 (150-450); RED BLOOD COUNT 2.63 MIL/MM3 (4.50-5.90); RED CELL DISTRIBUTION WIDTH 17.7 % (11.6-17.2); WHITE BLOOD COUNT 0.5 TH/MM3 (4.0-11.0)
[2017-05-25 08:03] LABS: HEMO FLAGS AUTO DIFF
[2017-05-25 08:34] LABS: ALT (GPT) 19 U/L (12-78); ANION GAP 9 MEQ/L (5-15); AST (GOT) 9 U/L (15-37); BICARBONATE 26.3 MEQ/L (21.0-32.0); BLOOD UREA NITROGEN 24 MG/DL (7-18); CHLORIDE 102 MEQ/L (98-107); GLOMERULAR FILTRATION RATE 141 ML/MIN (>89); POTASSIUM 4.1 MEQ/L (3.5-5.1); SODIUM (NA) 137 MEQ/L (136-145)
[2017-05-25 08:37] LABS: ALKALINE PHOSPHATASE 64 U/L (45-117)
[2017-05-25 09:04] LABS: EOSINOPHILS 1 % (0-4); POLYS (SEG NEUTROPHILS) 2 % (16-70); WBC DIFF SAMPLE 100
[2017-05-25 09:05] LABS: PLATELET ESTIMATE SMEAR LOW (NORMAL); PLATELET MORPHOLOGY NORMAL (NORMAL); ROULEAUX PRESENT (NORMAL); SCAN/DIFF FINAL DIFF MANUAL
[2017-05-25] MEDS: ATORVASTATIN 20 MG TAB PO SCH (09:31)
[2017-05-25] MEDS: METOPROLOL TARTRATE 50 MG TAB PO SCH ×2 (09:31→22:09)
[2017-05-25] MEDS: DOCUSATE SODIUM 50 MG/SENNA 8.6 MG TAB PO SCH ×2 (09:32→21:00)
[2017-05-25] MEDS: LEVOFLOXACIN 750 MG TAB PO SCH (09:32)
[2017-05-25] MEDS: SODIUM CHLORIDE 0.9% FLUSH 10 ML FLUSH IVF SCH (09:33)
[2017-05-25] MEDS: SODIUM CHLORIDE 0.9% FLUSH 10 ML FLUSH IV FLUSH SCH ×2 (09:33→22:09)
--- NOTE | 2017-05-25 10:25 | HHI.PR ---
Subjective Remarks Follow up for AML, neutropenia, thrombocytopenia. Mr. Gutiérrez is doing well. No fever, chills. No acute concerns. Objective Vitals Vital Signs Date Time Temp Pulse Resp B/P Pulse Ox O2 Delivery O2 Flow Rate FiO2 05/25/17 08:00 97.8 88 20 116/67 99 05/25/17 06:00 97.9 81 17 112/74 96 05/25/17 00:13 81 05/25/17 00:00 97.5 78 17 111/58 97 05/24/17 22:36 Room Air 21 05/24/17 20:00 97.8 84 17 106/59 96 05/24/17 20:00 81 05/24/17 19:31 21 05/24/17 16:00 97.7 84 16 107/59 92 05/24/17 12:34 97.9 80 16 101/58 95 05/24/17 12:14 94 05/24/17 12:10 98.2 85 16 104/61 95 05/24/17 11:15 95 Room Air 21 I/O 05/24/17 05/24/17 05/24/17 05/25/17 05/25/17 05/25/17 07:00 15:00 23:00 07:00 15:00 23:00 Intake Total 480 ml 720 ml Output Total 2000 ml 325 ml 500 ml 500 ml Balance -1520 ml 395 ml -500 ml -500 ml Intake Oral 480 ml 720 ml Output Urine Total 2000 ml 325 ml 500 ml 500 ml # Voids 3 # Bowel Movements 1 Result Diagram: 05/25/17 0514 05/25/17 0514 Imaging Last Impressions Chest X-Ray 05/23/17 0000 Signed Impressions: Service Date/Time: Tuesday, May 23, 2017 11:16 - CONCLUSION: Interval improvement when compared to 7. Ryan Hoover MD FACR Catheter Placement X-Ray 05/18/17 0000 Signed Impressions: Service Date/Time: Thursday, May 18, 2017 16:40 - CONCLUSION: Uncomplicated ultrasound and fluoroscopic guided dual lumen Jang catheter implantation as described. Emerson Carrasquillo MD Chest CT 05/17/17 0000 Signed Impressions: Service Date/Time: April 17:53 - CONCLUSION: 1. Bilateral alveolar infiltrates most characteristic of pulmonary edema. 2. Small to moderate bilateral pleural effusions. 3. Small amount of pericardial fluid. 4. Coronary artery calcifications. 5. Prominent left lobe of the thyroid with low attenuation nodular area. Braxton Tidwell MD Bone Biopsy CT 05/11/17 1309 Signed Impressions: Service Date/Time: Thursday, May 11, 2017 15:10 - CONCLUSION: 1. Uncomplicated CT guided bone marrow aspirate. 2. Uncomplicated CT guided bone marrow biopsy. Ryan Hoover MD FACR Soft Tissue Ultrasound 05/11/17 0000 Signed Impressions: Service Date/Time: Thursday, May 11, 2017 08:27 - CONCLUSION: Negative for abscess. Edematous changes in the soft tissues of the left axilla. Hank Nixon MD Objective Remarks GENERAL: AOX3, NAD. SKIN: Warm and dry. HEAD: Normocephalic. EYES: No scleral icterus. No injection or drainage. NECK: Supple, trachea midline. No JVD or lymphadenopathy. CARDIOVASCULAR: Regular rate and rhythm without murmurs, gallops, or rubs. RESPIRATORY: Breath sounds equal bilaterally. No accessory muscle use. GASTROINTESTINAL: Abdomen soft, non-tender, nondistended. MUSCULOSKELETAL: No cyanosis, or edema. BACK: Nontender without obvious deformity. No CVA tenderness. Procedures Echo 05/14/2017 CONCLUSIONS The left ventricular systolic function is normal with an estimated ejection fraction in the range of 55-60%. Wall thickness is measured at the upper limits of normal. The right ventricle is mildly dilated. Mild mitral valve regurgitation. There is trace tricuspid valve regurgitation. A/P Problem List: (1) Pancytopenia ICD Code: D61.818 Status: Acute (2) Macrocytic anemia ICD Code: D53.9 Status: Acute (3) Alcohol abuse ICD Code: F10.10 Status: Acute (4) S/P tympanic tube insertion ICD Code: Z96.22 Status: Acute Assessment and Plan Mr. Gutiérrez is a 66 y/o male with a history of HTN, HLD, AFIB and arthritis presented to the ED with complaints of dizziness and weakness. A recent blood work by PCP showed rapid decline in his H&H which prompted patient to seek medical attention. Due to pancytopenia, hematology/oncology was consulted. - Acute myelomonocytic anemia - -Medical oncology following. Remains pancytopenic. - S/p bone marrow biopsy. Pathology revealed acute myelomonocytic leukemia. - Started induction chemotherapy once has been completed he will remain in the hospital until his counts recover per oncology. - Reviewed labs by me - WBC 0.5, neutrophil essentially none, PLT 22. - Acute respiratory failure - Pleural effusion - Probable pneumonia - Left axillary cellulitis - Continue Levaquin while patient is neutropenic. - ID discontinued Vancomycin. - CXR showed improvement with minimal airspace disease. - CXR image reviewed by me. CXR shows improvement. We discontinued Cefepime and keep patient on Levaquin only. - Hypertension - Hyperlipidemia - Continue atorvastatin 20 mg daily at bedtime, lisinopril 20 mg daily, metoprolol 75 mg by mouth twice a day - Atrial fibrillation - continue metoprolol 75 mg by mouth twice a day. No anticoagulant depression at this point. Full code. SCDs. Braeden Stanley DO May 25, 2017 10:25 am
[2017-05-25] MEDS: LISINOPRIL 20 MG TAB PO SCH (11:10)
--- NOTE | 2017-05-25 17:52 | HHI.PR ---
Subjective Remarks 66 YOWM with ac Monomyelocytik leuk, bilat infilt No hemoptysis no Fever Feels better Up in chair., ambulates in the room Objective Vital Signs Vital Signs Date Time Temp Pulse Resp B/P Pulse Ox O2 Delivery O2 Flow Rate FiO2 05/25/17 16:12 89 05/25/17 16:00 96.9 91 122/63 96 05/25/17 12:28 85 05/25/17 12:00 98.5 83 18 108/65 98 05/25/17 09:30 96 Room Air 21 05/25/17 08:21 95 05/25/17 08:00 97.8 88 20 116/67 99 05/25/17 06:00 97.9 81 17 112/74 96 05/25/17 00:13 81 05/25/17 00:00 97.5 78 17 111/58 97 05/24/17 22:36 Room Air 21 05/24/17 20:00 97.8 84 17 106/59 96 05/24/17 20:00 81 05/24/17 19:31 21 I/O 05/24/17 05/24/17 05/24/17 05/25/17 05/25/17 05/25/17 07:00 15:00 23:00 07:00 15:00 23:00 Intake Total 480 ml 720 ml 510 ml Output Total 2000 ml 325 ml 500 ml 500 ml 300 ml 200 ml Balance -1520 ml 395 ml -500 ml -500 ml 210 ml -200 ml Intake Oral 480 ml 720 ml 240 ml IV Total 270 ml Output Urine Total 2000 ml 325 ml 500 ml 500 ml 300 ml 200 ml # Voids 3 # Bowel Movements 1 Result Diagram: 05/25/17 0514 05/25/17 0514 Objective Remarks GENERAL: WMWN WM, NAD SKIN: Warm and dry. HEAD: Normocephalic. EYES: No scleral icterus. No injection or drainage. NECK: Supple, trachea midline. No JVD or lymphadenopathy. CARDIOVASCULAR: Regular rate and rhythm without murmurs, gallops, or rubs. RESPIRATORY: Breath sounds equal bilaterally. No accessory muscle use. GASTROINTESTINAL: Abdomen soft, non-tender, nondistended. MUSCULOSKELETAL: No cyanosis, or edema. BACK: Nontender without obvious deformity. No CVA tenderness. A/P Assessment and Plan Bilat Infilt Pleural effusion mild Hemoptysis Ac Monomyelocytic Leukemia Pancytopenia PLAN" Cont Abx per ID monitor pl fluid Supplement 02 Monitor CBC Stable pulm, available prn over weekend. Donald Mayo MD May 25, 2017 17:52
--- NOTE | 2017-05-25 18:56 | PD.ONC.PN ---
Subjective Subjective Remarks Patient seen and examined, medications, labs vital signs and microbiology reviewed. Patient's nurse reports a 4 beat run of ventricular tachycardia was noted within the last 1 hour. The patient remained asymptomatic. Subjectively, he denies acute complaints, he tells me his appetite is not as good as he would like and he does have some nausea but has not been vomiting. He tells me he has been getting up out of bed to walk, denies diarrhea, hematochezia, overt bleeding. He remains afebrile. Objective Data Date Time Temp Pulse Resp B/P Pulse Ox O2 Delivery O2 Flow Rate FiO2 05/25/17 18:18 99 101/63 05/25/17 16:12 89 05/25/17 16:00 96.9 91 122/63 96 05/25/17 12:28 85 05/25/17 12:00 98.5 83 18 108/65 98 05/25/17 09:30 96 Room Air 21 05/25/17 08:21 95 05/25/17 08:00 97.8 88 20 116/67 99 05/25/17 06:00 97.9 81 17 112/74 96 05/25/17 00:13 81 05/25/17 00:00 97.5 78 17 111/58 97 05/24/17 22:36 Room Air 21 05/24/17 20:00 97.8 84 17 106/59 96 05/24/17 20:00 81 05/24/17 19:31 21 05/25/17 05/25/17 05/25/17 07:00 15:00 23:00 Intake Total 510 ml Output Total 500 ml 300 ml 200 ml Balance -500 ml 210 ml -200 ml Result Diagram: 05/25/17 0514 05/25/17 0514 Laboratory Results Laboratory Tests Test 05/25/17 05:14 White Blood Count 0.5 TH/MM3 Red Blood Count 2.63 MIL/MM3 Hemoglobin 8.1 GM/DL Hematocrit 23.9 % Mean Corpuscular Volume 90.9 FL Mean Corpuscular Hemoglobin 30.9 PG Mean Corpuscular Hemoglobin 34.0 % Concent Red Cell Distribution Width 17.7 % Platelet Count 22 TH/MM3 Mean Platelet Volume 9.1 FL Neutrophils (%) (Auto) 1.8 % Lymphocytes (%) (Auto) 90.3 % Monocytes (%) (Auto) 0.2 % Eosinophils (%) (Auto) 7.7 % Basophils (%) (Auto) 0.0 % Neutrophils # (Auto) 0.0 TH/MM3 Lymphocytes # (Auto) 0.4 TH/MM3 Monocytes # (Auto) 0.0 TH/MM3 Eosinophils # (Auto) 0.0 TH/MM3 Basophils # (Auto) 0.0 TH/MM3 CBC Comment AUTO DIFF Differential Total Cells 100 Counted Neutrophils % (Manual) 2 % Lymphocytes % 97 % Eosinophils % 1 % Neutrophils # (Manual) 0.0 TH/MM3 Differential Comment FINAL DIFF MANUAL Platelet Estimate LOW Platelet Morphology Comment NORMAL Rouleau PRESENT Sodium Level 137 MEQ/L Potassium Level 4.1 MEQ/L Chloride Level 102 MEQ/L Carbon Dioxide Level 26.3 MEQ/L Anion Gap 9 MEQ/L Blood Urea Nitrogen 24 MG/DL Creatinine 0.58 MG/DL Estimat Glomerular Filtration 141 ML/MIN Rate Random Glucose 121 MG/DL Calcium Level 8.6 MG/DL Total Bilirubin 2.0 MG/DL Aspartate Amino Transf 9 U/L (AST/SGOT) Alanine Aminotransferase 19 U/L (ALT/SGPT) Alkaline Phosphatase 64 U/L Total Protein 5.9 GM/DL Albumin 2.7 GM/DL Administered Medications Medications (Trade) Dose Ordered Sig/Maritza Route PRN Reason Start Time Stop Time Status Last Admin Dose Admin Sodium Chloride (NS Flush) 2 ml UNSCH PRN IV FLUSH FLUSH AFTER USING IV ACCESS 05/10/17 15:00 05/15/17 03:47 Sodium Chloride (NS Flush) 2 ml BID IV FLUSH 05/10/17 21:00 05/25/17 09:33 Acetaminophen (Tylenol) 650 mg Q4H PRN PO TEMP > 100.4 OR PREMEDICATION FOR BLOOD PRODUCT 05/10/17 15:00 05/24/17 11:14 Ondansetron HCl (Zofran Inj) 4 mg Q6H PRN IVP NAUSEA OR VOMITING 05/10/17 15:00 05/23/17 22:50 Senna/Docusate Sodium (Cinthia-Colace) 1 tab BID PO 05/10/17 21:00 05/20/17 08:18 Amlodipine Besylate (Norvasc) 5 mg DAILY PO 05/11/17 09:00 Hold 05/14/17 10:17 Atorvastatin Calcium (Lipitor) 20 mg DAILY PO 05/11/17 09:00 05/25/17 09:31 Lisinopril (Prinivil) 20 mg DAILY PO 05/11/17 09:00 05/23/17 10:39 Oxycodone HCl (Roxicodone) 5 mg Q4H PRN PO PAIN SCALE 3 TO 5 05/11/17 12:00 05/12/17 01:23 Metoprolol Tartrate 75 mg 75 mg BID PO 05/14/17 21:00 05/25/17 09:31 Sodium Chloride (NS 1000 ml Inj) 1,000 ml @ 30 mls/hr Q24H IV 05/15/17 12:00 05/25/17 05:06 Levofloxacin (Levaquin) 750 mg DAILY PO 05/15/17 14:00 05/25/17 09:32 Diphenhydramine HCl (Benadryl) 25 mg Q4H PRN PO PRE-MEDICATE FOR BLOOD PRODUCT 05/15/17 15:30 05/24/17 11:14 Sodium Chloride (NS Flush) DAILY IVF 05/19/17 09:00 05/25/17 09:33 Heparin Sodium (Porcine) (Heparin Central Flush) DAILY IV FLUSH 05/19/17 09:00 05/25/17 09:38 Objective Remarks GENERAL: Middle-aged/elderly male, laying in bed, appears to be no acute distress. SKIN: Warm and dry. HEAD: Normocephalic. EYES: No scleral icterus. No injection or drainage. Conjunctivae are pale. NECK: Supple, trachea midline. No JVD or lymphadenopathy. LYMPHATIC: No adenopathy. Chest: Right-sided tunneled catheter. CARDIOVASCULAR: Irregular rhythm without murmurs. RESPIRATORY: Breath sounds equal bilaterally. No accessory muscle use. GASTROINTESTINAL: Abdomen soft, non-tender, nondistended. EXTREMITIES: No cyanosis, or edema. MUSCULOSKELETAL: Adequate muscle tone. NEUROLOGICAL: No obvious focal deficit. Awake, alert, and oriented x3. PSYCHIATRIC: Appropriate mood and affect; insight and judgment normal. 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 Started on induction systemic chemotherapy with idarubicin/cytarabine (3+7) on . Induction completed on 05/23/2017. (2) Neutropenic fever Status: Acute Plan: Presently on empiric antibiotic therapy with cefepime, levofloxacin and vancomycin. Blood cultures and urine cultures are negative to date. He has been afebrile over the past 48 hours. (3) Hyperbilirubinemia Status: Acute Plan: --combination of direct and indirect elevated. --unclear etiology --will obtain hepatitis panel, monitor (4) Respiratory insufficiency Status: Acute Plan: --CXR shows worsening aeration. --pulmonology following --CT chest shows alveolar infiltrates. 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 Plan 1. AMML: Today is day 9 of induction with idarubicin and cytarabine. Continue monitoring daily CBCs and chemistries. Continue supportive transfusions as needed. 2. He is cytopenic, continue supportive transfusions with irradiated and CMV negative blood products. 3. Febrile neutropenia: He remains neutropenic, on empiric IV antibiotic therapy (levofloxacin and cefepime). Appreciate infectious diseases input and assistance. All cultures remain negative. 4. For one beat of ventricular tachycardia today, per the medical records he had a 7 run of V. tach 2 nights ago. I will give him magnesium sulfate 2 g IV 1 now. Patient is on metoprolol 75 mg by mouth twice a day. Continue ongoing care. Once induction chemotherapy has been completed he will remain in the hospital until his counts recover. Typically restaging bone marrow biopsy is obtained between 10-14 days post completion of induction chemotherapy. Problem Qualifiers (1) Acute myelomonocytic leukemia: Qualified Code: C92.50 - Acute myelomonocytic leukemia not having achieved remission Dwain Diez MD May 25, 2017 18:56
[2017-05-25] MEDS: MAGNESIUM SULFATE 1 GM PREMIX 100 ML IV SCH ×2 (21:00→22:09)
[2017-05-26] VITALS (10 sets, daily range): BP systolic 93–191; BP diastolic 57–78; PULSE 71–91; RESP 18–21; TEMP 96.5–98.4; O2SAT 90–99
[2017-05-26] MEDS: SODIUM CHLOR 0.9% 1000 ML INJ 1,000 ML IV SCH (04:00)
[2017-05-26] MEDS: DOCUSATE SODIUM 50 MG/SENNA 8.6 MG TAB PO SCH ×2 (09:00→21:00)
--- NOTE | 2017-05-26 09:07 | HHI.PR ---
Subjective Remarks Follow up for AML, neutropenia, thrombocytopenia. Patient is doing well. Complains of some nausea. No fever, chills. Objective Vitals Vital Signs Date Time Temp Pulse Resp B/P Pulse Ox O2 Delivery O2 Flow Rate FiO2 05/26/17 08:48 96.5 91 21 191/78 90 05/26/17 04:31 73 05/26/17 04:00 98.3 76 19 130/60 97 05/26/17 01:52 Room Air 21 05/26/17 00:20 74 05/26/17 00:00 97.0 79 19 119/69 96 05/25/17 20:00 97.4 80 18 121/60 96 05/25/17 20:00 80 05/25/17 18:18 99 101/63 05/25/17 16:12 89 05/25/17 16:00 96.9 91 122/63 96 05/25/17 12:28 85 05/25/17 12:00 98.5 83 18 108/65 98 05/25/17 09:30 96 Room Air 21 I/O 05/25/17 05/25/17 05/25/17 05/26/17 05/26/17 05/26/17 07:00 15:00 23:00 07:00 15:00 23:00 Intake Total 510 ml 480 ml 240 ml Output Total 500 ml 300 ml 525 ml 600 ml Balance -500 ml 210 ml -45 ml -360 ml Intake Oral 240 ml 480 ml 240 ml IV Total 270 ml Output Urine Total 500 ml 300 ml 525 ml 600 ml Result Diagram: 05/25/17 0514 05/25/17 0514 Imaging Last Impressions Chest X-Ray 05/23/17 0000 Signed Impressions: Service Date/Time: Tuesday, May 23, 2017 11:16 - CONCLUSION: Interval improvement when compared to 6 7. Ryan Hoover MD FACR Catheter Placement X-Ray 05/18/17 0000 Signed Impressions: Service Date/Time: Thursday, May 18, 2017 16:40 - CONCLUSION: Uncomplicated ultrasound and fluoroscopic guided dual lumen Jang catheter implantation as described. Emerson Carrasquillo MD Chest CT 05/17/17 0000 Signed Impressions: Service Date/Time: April 17:53 - CONCLUSION: 1. Bilateral alveolar infiltrates most characteristic of pulmonary edema. 2. Small to moderate bilateral pleural effusions. 3. Small amount of pericardial fluid. 4. Coronary artery calcifications. 5. Prominent left lobe of the thyroid with low attenuation nodular area. Braxton Tidwell MD Bone Biopsy CT 05/11/17 1309 Signed Impressions: Service Date/Time: Thursday, May 11, 2017 15:10 - CONCLUSION: 1. Uncomplicated CT guided bone marrow aspirate. 2. Uncomplicated CT guided bone marrow biopsy. Ryan Hoover MD FACR Soft Tissue Ultrasound 05/11/17 0000 Signed Impressions: Service Date/Time: Thursday, May 11, 2017 08:27 - CONCLUSION: Negative for abscess. Edematous changes in the soft tissues of the left axilla. Hank Nixon MD Objective Remarks GENERAL: AOX3, NAD. SKIN: Warm and dry. HEAD: Normocephalic. EYES: No scleral icterus. No injection or drainage. NECK: Supple, trachea midline. No JVD or lymphadenopathy. CARDIOVASCULAR: Regular rate and rhythm without murmurs, gallops, or rubs. RESPIRATORY: Breath sounds equal bilaterally. No accessory muscle use. GASTROINTESTINAL: Abdomen soft, non-tender, nondistended. MUSCULOSKELETAL: No cyanosis, or edema. BACK: Nontender without obvious deformity. No CVA tenderness. Procedures Echo 05/14/2017 CONCLUSIONS The left ventricular systolic function is normal with an estimated ejection fraction in the range of 55-60%. Wall thickness is measured at the upper limits of normal. The right ventricle is mildly dilated. Mild mitral valve regurgitation. There is trace tricuspid valve regurgitation. A/P Problem List: (1) Pancytopenia ICD Code: D61.818 Status: Acute (2) Macrocytic anemia ICD Code: D53.9 Status: Acute (3) Alcohol abuse ICD Code: F10.10 Status: Acute (4) S/P tympanic tube insertion ICD Code: Z96.22 Status: Acute Assessment and Plan Mr. Gutiérrez is a 66 y/o male with a history of HTN, HLD, AFIB and arthritis presented to the ED with complaints of dizziness and weakness. A recent blood work by PCP showed rapid decline in his H&H which prompted patient to seek medical attention. Due to pancytopenia, hematology/oncology was consulted. - Acute myelomonocytic anemia - -Medical oncology following. Remains pancytopenic. - S/p bone marrow biopsy. Pathology revealed acute myelomonocytic leukemia. - Induction chemotherapy completed 05/23/2017. - Reviewed labs by wi - WBC 0.4, PLT 15. - Acute respiratory failure - Pleural effusion - Probable pneumonia - Left axillary cellulitis - Continue Levaquin while patient is neutropenic. - ID discontinued Vancomycin. - CXR showed improvement with minimal airspace disease. - CXR shows improvement. We discontinued Cefepime and keep patient on Levaquin only. - Hypertension - Hyperlipidemia - Continue atorvastatin 20 mg daily at bedtime, lisinopril 20 mg daily, metoprolol 75 mg by mouth twice a day - Atrial fibrillation - continue metoprolol 75 mg by mouth twice a day. No anticoagulant depression at this point. Full code. SCDs. Braeden Stanley DO May 26, 2017 9:06 am Braeden Stanley DO May 26, 2017 09:06
[2017-05-26] MEDS: ATORVASTATIN 20 MG TAB PO SCH (09:43)
[2017-05-26] MEDS: LEVOFLOXACIN 750 MG TAB PO SCH (09:43)
[2017-05-26] MEDS: LISINOPRIL 20 MG TAB PO SCH (09:43)
[2017-05-26] MEDS: METOPROLOL TARTRATE 50 MG TAB PO SCH ×2 (09:43→21:42)
[2017-05-26] MEDS: SODIUM CHLORIDE 0.9% FLUSH 10 ML FLUSH IV FLUSH SCH ×2 (09:51→21:00)
[2017-05-26] MEDS: SODIUM CHLORIDE 0.9% FLUSH 10 ML FLUSH IVF SCH (09:56)
[2017-05-26] MEDS ORDERED: MAGNESIUM SULFATE 1 GM PREMIX 100 ML IV SCH (10:00)
--- NOTE | 2017-05-26 10:00 | PD.ONC.PN ---
Subjective Subjective Remarks Afebrile overnight. Feeling somewhat nauseated "when I sit up or move around." Eating breakfast. No overnight events reported by nursing staff. Objective Data Date Time Temp Pulse Resp B/P Pulse Ox O2 Delivery O2 Flow Rate FiO2 05/26/17 08:48 96.5 91 21 191/78 90 05/26/17 04:31 73 05/26/17 04:00 98.3 76 19 130/60 97 05/26/17 01:52 Room Air 05/26/17 00:20 74 05/26/17 00:00 97.0 79 19 119/69 96 05/25/17 20:00 97.4 80 18 121/60 96 05/25/17 20:00 80 05/25/17 18:18 99 101/63 05/25/17 16:12 89 05/25/17 16:00 96.9 91 122/63 96 05/25/17 12:28 85 05/25/17 12:00 98.5 83 18 108/65 98 Result Diagram: 05/25/17 0514 05/25/17513 Administered Medications Medications (Trade) Dose Ordered Sig/Maritza Route PRN Reason Start Time Stop Time Status Last Admin Dose Admin Sodium Chloride (NS Flush) 2 ml UNSCH PRN IV FLUSH FLUSH AFTER USING IV ACCESS 05/10/17 15:00 05/15/17 03:47 Sodium Chloride (NS Flush) 2 ml BID IV FLUSH 05/10/17 21:00 05/25/17 22:09 Acetaminophen (Tylenol) 650 mg Q4H PRN PO TEMP > 100.4 OR PREMEDICATION FOR BLOOD PRODUCT 05/10/17 15:00 05/24/17 11:14 Ondansetron HCl (Zofran Inj) 4 mg Q6H PRN IVP NAUSEA OR VOMITING 05/10/17 15:00 05/23/17 22:50 Senna/Docusate Sodium (Cinthia-Colace) 1 tab BID PO 05/10/17 21:00 05/20/17 08:18 Amlodipine Besylate (Norvasc) 5 mg DAILY PO 05/11/17 09:00 Hold 05/14/17 10:17 Atorvastatin Calcium (Lipitor) 20 mg DAILY PO 05/11/17 09:00 05/25/17 09:31 Lisinopril (Prinivil) 20 mg DAILY PO 05/11/17 09:00 05/23/17 10:39 Oxycodone HCl (Roxicodone) 5 mg Q4H PRN PO PAIN SCALE 3 TO 5 05/11/17 12:00 05/12/17 01:23 Metoprolol Tartrate 75 mg 75 mg BID PO 05/14/17 21:00 05/25/17 22:09 Sodium Chloride (NS 1000 ml Inj) 1,000 ml @ 30 mls/hr Q24H IV 05/15/17 12:00 05/25/17 05:06 Levofloxacin (Levaquin) 750 mg DAILY PO 05/15/17 14:00 05/25/17 09:32 Diphenhydramine HCl (Benadryl) 25 mg Q4H PRN PO PRE-MEDICATE FOR BLOOD PRODUCT 05/15/17 15:30 05/24/17 11:14 Sodium Chloride (NS Flush) DAILY IVF 05/19/17 09:00 05/25/17 09:33 Heparin Sodium (Porcine) (Heparin Central Flush) DAILY IV FLUSH 05/19/17 09:00 05/25/17 09:38 Objective Remarks GENERAL: Pleasant middle aged male, upright in bed eating breakfast. +hard of hearing. SKIN: Warm and dry. souza catheter in left chest wall, c/d/i HEAD: Normocephalic. EYES: No injection or drainage. NECK: Supple, trachea midline. CARDIOVASCULAR: +S1/S2 RESPIRATORY: Breath sounds equal bilaterally. No accessory muscle use. GASTROINTESTINAL: Abdomen soft, non-tender, nondistended. EXTREMITIES: No cyanosis NEUROLOGICAL: awake and alert. normal speech. moving all extremities. 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 Started on induction systemic chemotherapy with idarubicin/cytarabine (3+7) on . Induction completed on 05/23/2017. (2) Neutropenic fever Status: Acute Plan: --on Levaquin only --Blood cultures and urine cultures are negative to date. --remains afebrile. (3) Hyperbilirubinemia Status: Acute Plan: --combination of direct and indirect elevated. --unclear etiology --hepatitis panel is negative. (4) Respiratory insufficiency Status: Resolved Plan: --CXR, 05/23, shows improvement --pulmonology following --CT chest shows alveolar infiltrates. --on duonebs PRN --Lasix PRN (5) Atrial fibrillation Status: Acute Plan: --rate controlled on metoprolol Assessment 66y/o male with newly diagnosed AMML. Plan 1. AMML: D12. 2. monitor CBC, transfuse 1 unit platelets today. 3. Febrile neutropenia: remains neutropenic. on Levaquin only at this time. all cultures negative. Attending Statement The exam, history, and the medical decision-making described in the above note were completed with the assistance of the mid-level provider. I reviewed and agree with the findings presented. I attest that I had a [id number] encounter with the patient on the same day, and personally performed and documented my assessment and findings in the medical record. Patient seen and examined, vital signs, labs, metastases were reviewed. Subjectively he reports fatigue but denies acute illness. He specifically denies fevers, chills or night sweats. Denies overt bleeding, chest pain. Day 12 following initiation of induction systemic chemotherapy. He is cytopenic as would be expected, anticipate cytopenias will likely worsen in the upcoming days and will therefore require transfusion support. Transfuse platelets for platelet count less than 10,000 unless he is overtly bleeding. Transfuse red cells to maintain hemoglobin over 7 g/dL should he remain asymptomatic. Continue broad-spectrum antibiotic coverage for previous febrile neutropenia. Problem Qualifiers (1) Acute myelomonocytic leukemia: Qualified Code: C92.50 - Acute myelomonocytic leukemia not having achieved remission Nettie Lutz May 26, 2017 10:00 Dwain Diez MD May 26, 2017 14:46
[2017-05-26 10:18] LABS: HEMATOCRIT 22.2 % (39.0-51.0); MEAN CELL VOLUME 88.9 FL (80.0-100.0); MEAN CORPUSCULAR HEMOGLOBIN 31.7 PG (27.0-34.0); MEAN CORPUSCULAR HGB CONC 35.6 % (32.0-36.0); RED CELL DISTRIBUTION WIDTH 17.4 % (11.6-17.2); WHITE BLOOD COUNT 0.4 TH/MM3 (4.0-11.0)
[2017-05-26 10:19] LABS: HEMO FLAGS AUTO DIFF
[2017-05-26 10:21] LABS: PLATELET COUNT 15 TH/MM3 (150-450)
[2017-05-26 11:00] LABS: EOSINOPHILS 6 % (0-4); PLATELET ESTIMATE SMEAR RARE (NORMAL); PLATELET MORPHOLOGY NORMAL (NORMAL); POLYS (SEG NEUTROPHILS) 2 % (16-70); SCAN/DIFF FINAL DIFF MANUAL; WBC DIFF SAMPLE 50
[2017-05-26] MEDS: INSULIN ASPART SUPPLEMENTAL SCALE SQ SCH ×3 (11:00→21:56)
[2017-05-26] MEDS ORDERED: diphenhydrAMINE HCL 25 MG CAP PO PRN (11:45)
[2017-05-26] MEDS ORDERED: ACETAMINOPHEN 325 MG TAB PO PRN (11:45)
[2017-05-27] VITALS (9 sets, daily range): BP systolic 92–117; BP diastolic 52–70; PULSE 81–93; RESP 18–20; TEMP 96.7–98.9; O2SAT 96–99
[2017-05-27] MEDS: INSULIN ASPART SUPPLEMENTAL SCALE SQ SCH ×3 (05:08→21:00)
[2017-05-27] MEDS: SODIUM CHLOR 0.9% 1000 ML INJ 1,000 ML IV SCH (05:13)
[2017-05-27 05:53] LABS: HEMATOCRIT 21.1 % (39.0-51.0); MEAN CELL VOLUME 88.3 FL (80.0-100.0); MEAN CORPUSCULAR HEMOGLOBIN 30.8 PG (27.0-34.0); MEAN CORPUSCULAR HGB CONC 34.8 % (32.0-36.0); RED BLOOD COUNT 2.39 MIL/MM3 (4.50-5.90); RED CELL DISTRIBUTION WIDTH 16.9 % (11.6-17.2); WHITE BLOOD COUNT 0.5 TH/MM3 (4.0-11.0)
[2017-05-27 05:56] LABS: HEMO FLAGS AUTO DIFF
[2017-05-27 05:57] LABS: PLATELET COUNT 10 TH/MM3 (150-450)
[2017-05-27 07:10] LABS: EOSINOPHILS 17 % (0-4); WBC DIFF SAMPLE 35
[2017-05-27 07:11] LABS: OVALOCYTES 1+ (NORMAL); PLATELET ESTIMATE SMEAR RARE (NORMAL); PLATELET MORPHOLOGY NORMAL (NORMAL); SCAN/DIFF FINAL DIFF MANUAL
[2017-05-27] MEDS: ATORVASTATIN 20 MG TAB PO SCH (08:00)
[2017-05-27] MEDS: DOCUSATE SODIUM 50 MG/SENNA 8.6 MG TAB PO SCH ×3 (08:00→21:00)
[2017-05-27] MEDS: LEVOFLOXACIN 750 MG TAB PO SCH (08:00)
[2017-05-27] MEDS: SODIUM CHLORIDE 0.9% FLUSH 10 ML FLUSH IVF SCH (08:01)
[2017-05-27] MEDS: METOPROLOL TARTRATE 50 MG TAB PO SCH ×2 (08:01→21:22)
[2017-05-27] MEDS: LISINOPRIL 20 MG TAB PO SCH (08:01)
[2017-05-27] MEDS: SODIUM CHLORIDE 0.9% FLUSH 10 ML FLUSH IV FLUSH SCH ×2 (08:02→21:00)
[2017-05-27] MEDS ORDERED: SODIUM CHLOR 0.9% 250 ML INJ 250 ML IV ONE (08:45)
--- NOTE | 2017-05-27 09:15 | HHI.PR ---
Subjective Remarks Follow up for AML, neutropenia, thrombocytopenia. Doing well. No fever, chills, bleeding. Objective Vitals Vital Signs Date Time Temp Pulse Resp B/P Pulse Ox O2 Delivery O2 Flow Rate FiO2 05/27/17 07:57 99 Room Air 05/27/17 07:55 98.9 83 18 96/58 99 05/27/17 04:00 96.7 81 19 111/70 98 05/27/17 00:07 82 05/27/17 00:00 98.2 83 19 108/68 99 05/26/17 20:17 78 05/26/17 20:00 98.4 86 18 109/64 97 05/26/17 18:24 149/70 05/26/17 16:27 98.0 71 20 93/57 99 05/26/17 12:37 97.2 81 21 100/60 98 05/26/17 09:48 Room Air I/O 05/26/17 05/26/17 05/26/17 05/27/17 05/27/17 05/27/17 07:00 15:00 23:00 07:00 15:00 23:00 Intake Total 240 ml 480 ml 1321 ml 240 ml Output Total 600 ml 400 ml 350 ml Balance -360 ml 80 ml 1321 ml -110 ml Intake Oral 240 ml 480 ml 480 ml 240 ml IV Total 841 ml Output Urine Total 600 ml 400 ml 350 ml # Voids 1 3 # Bowel Movements 1 2 Result Diagram: 05/27/17 0500 05/25/17 0514 Objective Remarks GENERAL: AOX3, NAD. SKIN: Warm and dry. HEAD: Normocephalic. EYES: No scleral icterus. No injection or drainage. NECK: Supple, trachea midline. No JVD or lymphadenopathy. CARDIOVASCULAR: Regular rate and rhythm without murmurs, gallops, or rubs. RESPIRATORY: Breath sounds equal bilaterally. No accessory muscle use. GASTROINTESTINAL: Abdomen soft, non-tender, nondistended. MUSCULOSKELETAL: No cyanosis, or edema. BACK: Nontender without obvious deformity. No CVA tenderness. Procedures Echo 05/14/2017 CONCLUSIONS The left ventricular systolic function is normal with an estimated ejection fraction in the range of 55-60%. Wall thickness is measured at the upper limits of normal. The right ventricle is mildly dilated. Mild mitral valve regurgitation. There is trace tricuspid valve regurgitation. A/P Problem List: (1) Pancytopenia ICD Code: D61.818 Status: Acute (2) Macrocytic anemia ICD Code: D53.9 Status: Acute (3) Alcohol abuse ICD Code: F10.10 Status: Acute (4) S/P tympanic tube insertion ICD Code: Z96.22 Status: Acute Assessment and Plan Mr. Gutiérrez is a 66 y/o male with a history of HTN, HLD, AFIB and arthritis presented to the ED with complaints of dizziness and weakness. A recent blood work by PCP showed rapid decline in his H&H which prompted patient to seek medical attention. Due to pancytopenia, hematology/oncology was consulted. - Acute myelomonocytic anemia - Medical oncology following. Remains pancytopenic. - S/p bone marrow biopsy. Pathology revealed acute myelomonocytic leukemia. - Induction chemotherapy completed 05/23/2017. - Reviewed labs by mn - WBC 0.5, PLT 10. - Discussed with Dr. Diez. Patient will likely receive transfusion today. - Acute respiratory failure - Pleural effusion - Probable pneumonia - Left axillary cellulitis - Continue Levaquin while patient is neutropenic. - ID discontinued Vancomycin. - CXR showed improvement with minimal airspace disease. - CXR shows improvement. We discontinued Cefepime and keep patient on Levaquin only. - Hypertension - Hyperlipidemia - Continue atorvastatin 20 mg daily at bedtime, lisinopril 20 mg daily, metoprolol 75 mg by mouth twice a day - Atrial fibrillation - continue metoprolol 75 mg by mouth twice a day. No anticoagulant depression at this point. Full code. SCDs. Braeden Stanley DO May 27, 2017 9:15 am
--- NOTE | 2017-05-27 10:00 | PD.ONC.PN ---
Subjective Subjective Remarks Afebrile overnight. Slept ok last night. Wants to take a shower. Dizzy with walking, but ok with sitting or laying down. Objective Data Date Time Temp Pulse Resp B/P Pulse Ox O2 Delivery O2 Flow Rate FiO2 05/27/17 07:57 99 Room Air 05/27/17 07:55 98.9 83 18 96/58 99 05/27/17 04:00 96.7 81 19 111/70 98 05/27/17 00:07 82 05/27/17 00:00 98.2 83 19 108/68 99 05/26/17 20:17 78 05/26/17 20:00 98.4 86 18 109/64 97 05/26/17 18:24 149/70 05/26/17 16:27 98.0 71 20 93/57 99 05/26/17 12:37 97.2 81 21 100/60 98 05/27/17 05/27/17 05/27/17 07:00 15:00 23:00 Intake Total 240 ml Output Total 350 ml Balance -110 ml Result Diagram: 05/27/17 0500 05/25/17 0514 Laboratory Results Laboratory Tests Test 05/26/17 05/27/17 11:36 05:00 Blood Bank Comment White Blood Count 0.5 TH/MM3 Red Blood Count 2.39 MIL/MM3 Hemoglobin 7.4 GM/DL Hematocrit 21.1 % Mean Corpuscular Volume 88.3 FL Mean Corpuscular Hemoglobin 30.8 PG Mean Corpuscular Hemoglobin 34.8 % Concent Red Cell Distribution Width 16.9 % Platelet Count 10 TH/MM3 Mean Platelet Volume 8.3 FL Neutrophils (%) (Auto) % Lymphocytes (%) (Auto) % Monocytes (%) (Auto) % Eosinophils (%) (Auto) % Basophils (%) (Auto) % Neutrophils # (Auto) TH/MM3 Lymphocytes # (Auto) TH/MM3 Monocytes # (Auto) TH/MM3 Eosinophils # (Auto) TH/MM3 Basophils # (Auto) TH/MM3 CBC Comment AUTO DIFF Differential Total Cells 35 Counted Lymphocytes % 83 % Eosinophils % 17 % Neutrophils # (Manual) 0.0 TH/MM3 Differential Comment FINAL DIFF MANUAL Platelet Estimate RARE Platelet Morphology Comment NORMAL Ovalocytes 1+ Administered Medications Medications (Trade) Dose Ordered Sig/Maritza Route PRN Reason Start Time Stop Time Status Last Admin Dose Admin Sodium Chloride (NS Flush) 2 ml UNSCH PRN IV FLUSH FLUSH AFTER USING IV ACCESS 05/10/17 15:00 05/15/17 03:47 Sodium Chloride (NS Flush) 2 ml BID IV FLUSH 05/10/17 21:00 05/26/17 09:51 Acetaminophen (Tylenol) 650 mg Q4H PRN PO TEMP > 100.4 OR PREMEDICATION FOR BLOOD PRODUCT 05/10/17 15:00 05/24/17 11:14 Ondansetron HCl (Zofran Inj) 4 mg Q6H PRN IVP NAUSEA OR VOMITING 05/10/17 15:00 05/23/17 22:50 Senna/Docusate Sodium (Cinthia-Colace) 1 tab BID PO 05/10/17 21:00 05/20/17 08:18 Amlodipine Besylate (Norvasc) 5 mg DAILY PO 05/11/17 09:00 Hold 05/14/17 10:17 Atorvastatin Calcium (Lipitor) 20 mg DAILY PO 05/11/17 09:00 05/27/17 08:00 Lisinopril (Prinivil) 20 mg DAILY PO 05/11/17 09:00 05/26/17 09:43 Oxycodone HCl (Roxicodone) 5 mg Q4H PRN PO PAIN SCALE 3 TO 5 05/11/17 12:00 05/12/17 01:23 Metoprolol Tartrate 75 mg 75 mg BID PO 05/14/17 21:00 05/26/17 21:42 Sodium Chloride (NS 1000 ml Inj) 1,000 ml @ 30 mls/hr Q24H IV 05/15/17 12:00 05/27/17 05:13 Diphenhydramine HCl (Benadryl) 25 mg Q4H PRN PO PRE-MEDICATE FOR BLOOD PRODUCT 05/15/17 15:30 05/24/17 11:14 Sodium Chloride (NS Flush) DAILY IVF 05/19/17 09:00 05/26/17 09:56 Heparin Sodium (Porcine) (Heparin Central Flush) DAILY IV FLUSH 05/19/17 09:00 05/25/17 09:38 Objective Remarks GENERAL: Pleasantmale, upright in bed in nad SKIN: Warm and dry. souza catheter, chest wall, c/d/i; IV, left hand without bleeding. HEAD: Normocephalic. EYES: No injection or drainage. NECK: Supple, trachea midline. CARDIOVASCULAR: +S1/S2 RESPIRATORY: Breath sounds equal bilaterally. No accessory muscle use. GASTROINTESTINAL: Abdomen soft, non-tender, nondistended. EXTREMITIES: No cyanosis NEUROLOGICAL: awake and alert. normal speech. moving all extremities. 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 Started on induction systemic chemotherapy with idarubicin/cytarabine (3+7) on . Induction completed on 05/23/2017. (2) Neutropenic fever Status: Acute Plan: --levaquin stopped 05/27 --Blood cultures and urine cultures are negative to date. --remains afebrile. (3) Hyperbilirubinemia Status: Acute Plan: --combination of direct and indirect elevated. --unclear etiology --hepatitis panel is negative. (4) Respiratory insufficiency Status: Resolved Plan: --CXR, 05/23, shows improvement --pulmonology following --CT chest shows alveolar infiltrates. --on duonebs PRN --Lasix PRN (5) Atrial fibrillation Status: Acute Plan: --rate controlled on metoprolol Assessment 66y/o male with newly diagnosed AMML. Plan 1. AMML: D13. 2. monitor CBC, transfuse 1 unit platelets and 1 unit pRBC. change protocol for standing transfusions for 1 unit pRBC for hgb less than 7.5 and 1 unit platelets for platelet count less than 10. use irradiated blood. 3. Febrile neutropenia: remains neutropenic. all cultures negative. stop Levaquin. Attending Statement The exam, history, and the medical decision-making described in the above note were completed with the assistance of the mid-level provider. I reviewed and agree with the findings presented. I attest that I had a [id number] encounter with the patient on the same day, and personally performed and documented my assessment and findings in the medical record. Patient seen and examined, labs, vital signs, medications were reviewed. Agree with physical exam findings as documented above. Recommendations: #1 AMML: Counts approaching vernon. Continue close monitoring and supportive transfusions. Transfuse to maintain platelet count over 10,000. Transfuse red blood cells to maintain hemoglobin over 7.5 g/dL. Levaquin discontinued. He has been afebrile for about a week now. All blood cultures were negative. Dizziness; may be related to orthostatics and or to his anemia. Encouraged oral hydration. Red cell transfusion today. Continue ongoing care. Problem Qualifiers (1) Acute myelomonocytic leukemia: Qualified Code: C92.50 - Acute myelomonocytic leukemia not having achieved remission Nettie Lutz May 27, 2017 09:59 Dwain Diez MD May 27, 2017 10:46
[2017-05-27] MEDS: diphenhydrAMINE HCL 25 MG CAP PO PRN (12:00)
[2017-05-27] MEDS: ACETAMINOPHEN 325 MG TAB PO PRN (12:00)
[2017-05-27 21:08] LABS: MEAN CORPUSCULAR HGB CONC 36.5 % (32.0-36.0)
[2017-05-28] VITALS (9 sets, daily range): BP systolic 95–122; BP diastolic 56–75; PULSE 80–98; RESP 16–22; TEMP 97.2–98.1; O2SAT 97–99
[2017-05-28] MEDS: INSULIN ASPART SUPPLEMENTAL SCALE SQ SCH ×2 (05:03→20:21)
[2017-05-28] MEDS: SODIUM CHLOR 0.9% 1000 ML INJ 1,000 ML IV SCH (05:03)
[2017-05-28 06:30] LABS: MEAN CELL VOLUME 84.4 FL (80.0-100.0); MEAN CORPUSCULAR HEMOGLOBIN 30.8 PG (27.0-34.0); PLATELET COUNT 20 TH/MM3 (150-450); RED BLOOD COUNT 2.73 MIL/MM3 (4.50-5.90); RED CELL DISTRIBUTION WIDTH 19.2 % (11.6-17.2); WHITE BLOOD COUNT 0.7 TH/MM3 (4.0-11.0)
[2017-05-28 06:37] LABS: HEMO FLAGS AUTO DIFF
[2017-05-28 07:54] LABS: EOSINOPHILS 4 % (0-4); MYELOCYTES 4 % (0-0); WBC DIFF SAMPLE 50
[2017-05-28 07:55] LABS: PLATELET ESTIMATE SMEAR RARE (NORMAL); PLATELET MORPHOLOGY NORMAL (NORMAL)
[2017-05-28 07:56] LABS: OVALOCYTES 1+ (NORMAL)
[2017-05-28 07:57] LABS: SCAN/DIFF FINAL DIFF MANUAL
--- NOTE | 2017-05-28 08:15 | HHI.PR ---
Subjective Remarks Follow up for AML, neutropenia, thrombocytopenia. Patient is doing well. No acute concerns. Remains afebrile. Objective Vitals Vital Signs Date Time Temp Pulse Resp B/P Pulse Ox O2 Delivery O2 Flow Rate FiO2 05/28/17 04:07 87 05/28/17 04:00 97.7 82 17 108/68 99 05/28/17 00:04 80 05/28/17 00:00 97.8 83 18 96/62 99 05/27/17 20:00 96.9 90 18 102/65 98 05/27/17 20:00 89 05/27/17 16:36 97.3 85 20 117/69 99 05/27/17 12:49 96.8 90 18 92/63 98 05/27/17 12:46 96.8 91 20 92/63 99 05/27/17 12:10 97.6 93 18 115/52 96 I/O 05/27/17 05/27/17 05/27/17 05/28/17 05/28/17 05/28/17 07:00 15:00 23:00 07:00 15:00 23:00 Intake Total 240 ml 120 ml 1035 ml 240 ml Output Total 350 ml 200 ml 450 ml Balance -110 ml 120 ml 835 ml -210 ml Intake Oral 240 ml 120 ml 480 ml 240 ml IV Total 555 ml Output Urine Total 350 ml 200 ml 450 ml # Voids 2 # Bowel Movements 1 Result Diagram: 05/28/17 0500 05/25/17 0514 Imaging Last Impressions Chest X-Ray 05/23/17 0000 Signed Impressions: Service Date/Time: Tuesday, May 23, 2017 11:16 - CONCLUSION: Interval improvement when compared to 7. Ryan Hoover MD FACR Catheter Placement X-Ray 05/18/17 0000 Signed Impressions: Service Date/Time: Thursday, May 18, 2017 16:40 - CONCLUSION: Uncomplicated ultrasound and fluoroscopic guided dual lumen Jang catheter implantation as described. Emerson Carrasquillo MD Chest CT 05/17/17 0000 Signed Impressions: Service Date/Time: April 17:53 - CONCLUSION: 1. Bilateral alveolar infiltrates most characteristic of pulmonary edema. 2. Small to moderate bilateral pleural effusions. 3. Small amount of pericardial fluid. 4. Coronary artery calcifications. 5. Prominent left lobe of the thyroid with low attenuation nodular area. Braxton Tidwell MD Bone Biopsy CT 05/11/17 1309 Signed Impressions: Service Date/Time: Thursday, May 11, 2017 15:10 - CONCLUSION: 1. Uncomplicated CT guided bone marrow aspirate. 2. Uncomplicated CT guided bone marrow biopsy. Ryan Hoover MD FACR Soft Tissue Ultrasound 05/11/17 0000 Signed Impressions: Service Date/Time: Thursday, May 11, 2017 08:27 - CONCLUSION: Negative for abscess. Edematous changes in the soft tissues of the left axilla. Hank Nixon MD Objective Remarks GENERAL: Alert, NAD. SKIN: Warm and dry. HEAD: Normocephalic. EYES: No scleral icterus. No injection or drainage. NECK: Supple, trachea midline. No JVD or lymphadenopathy. CARDIOVASCULAR: Irreg Irreg without murmurs, gallops, or rubs. RESPIRATORY: Breath sounds equal bilaterally. No accessory muscle use. GASTROINTESTINAL: Abdomen soft, non-tender, nondistended. MUSCULOSKELETAL: No cyanosis, or edema. BACK: Nontender without obvious deformity. No CVA tenderness. Procedures Echo 05/14/2017 CONCLUSIONS The left ventricular systolic function is normal with an estimated ejection fraction in the range of 55-60%. Wall thickness is measured at the upper limits of normal. The right ventricle is mildly dilated. Mild mitral valve regurgitation. There is trace tricuspid valve regurgitation. A/P Problem List: (1) Pancytopenia ICD Code: D61.818 Status: Acute (2) Macrocytic anemia ICD Code: D53.9 Status: Acute (3) Alcohol abuse ICD Code: F10.10 Status: Acute (4) S/P tympanic tube insertion ICD Code: Z96.22 Status: Acute Assessment and Plan Mr. Gutiérrez is a 66 y/o male with a history of HTN, HLD, AFIB and arthritis presented to the ED with complaints of dizziness and weakness. A recent blood work by PCP showed rapid decline in his H&H which prompted patient to seek medical attention. Due to pancytopenia, hematology/oncology was consulted. - Acute myelomonocytic anemia - Medical oncology following. Remains pancytopenic. - S/p bone marrow biopsy. Pathology revealed acute myelomonocytic leukemia. - Induction chemotherapy completed 05/23/2017. - Reviewed labs by mn - WBC 0.7, PLT 20. - Acute respiratory failure - Pleural effusion - Probable pneumonia - Left axillary cellulitis - Continue Levaquin while patient is neutropenic. - ID discontinued Vancomycin. - CXR showed improvement with minimal airspace disease. - CXR shows improvement. Was on Levaquin, stopped on 05/27/2017. Patient remains afebrile. - Hypertension - Hyperlipidemia - Continue atorvastatin 20 mg daily at bedtime, lisinopril 20 mg daily, metoprolol 75 mg by mouth twice a day - Atrial fibrillation - continue metoprolol 75 mg by mouth twice a day. No anticoagulant medications at this point. Full code. SCDs. Braeden Stanley DO May 28, 2017 8:15 am
[2017-05-28] MEDS: ATORVASTATIN 20 MG TAB PO SCH (08:24)
[2017-05-28] MEDS: SODIUM CHLORIDE 0.9% FLUSH 10 ML FLUSH IV FLUSH SCH ×2 (08:25→20:22)
[2017-05-28] MEDS: SODIUM CHLORIDE 0.9% FLUSH 10 ML FLUSH IVF SCH (08:25)
[2017-05-28] MEDS: DOCUSATE SODIUM 50 MG/SENNA 8.6 MG TAB PO SCH ×2 (08:26→20:23)
[2017-05-28] MEDS: LISINOPRIL 20 MG TAB PO SCH (08:26)
[2017-05-28] MEDS: METOPROLOL TARTRATE 50 MG TAB PO SCH ×2 (08:26→20:23)
--- NOTE | 2017-05-28 09:31 | PD.ONC.PN ---
Subjective Subjective Remarks Patient seen and examined, denies acute complaints, specifically denies febrile illness, nausea vomiting or diarrhea. He tells me his appetite is poor but he has been forcing himself to eat. New issue over the past 2 days has been a patchy rash over his forehead on the left side, is also involving the sides of his cheeks. The rash is at times itchy but does not bleed. No other complaints or acute events noted upon review vital signs, labs or medications. Objective Data Date Time Temp Pulse Resp B/P Pulse Ox O2 Delivery O2 Flow Rate FiO2 05/28/17 08:32 Room Air 05/28/17 08:21 97.8 92 18 95/59 98 05/28/17 04:07 87 05/28/17 04:00 97.7 82 17 108/68 99 05/28/17 00:04 80 05/28/17 00:00 97.8 83 18 96/62 99 05/27/17 20:00 96.9 90 18 102/65 98 05/27/17 20:00 89 05/27/17 16:36 97.3 85 20 117/69 99 05/27/17 12:49 96.8 90 18 92/63 98 05/27/17 12:46 96.8 91 20 92/63 99 05/27/17 12:10 97.6 93 18 115/52 96 05/28/17 05/28/17 05/28/17 07:00 15:00 23:00 Intake Total 240 ml Output Total 450 ml Balance -210 ml Result Diagram: 05/28/17 0500 05/25/17 0514 Laboratory Results Laboratory Tests Test 05/27/17 05/28/17 09:46 05:00 Blood Type A POSITIVE Antibody Screen NEGATIVE Crossmatch Irradiated/Leukocyte-Reduced RBC Blood Bank Comment White Blood Count 0.7 TH/MM3 Red Blood Count 2.73 MIL/MM3 Hemoglobin 8.4 GM/DL Hematocrit 23.0 % Mean Corpuscular Volume 84.4 FL Mean Corpuscular Hemoglobin 30.8 PG Mean Corpuscular Hemoglobin 36.5 % Concent Red Cell Distribution Width 19.2 % Platelet Count 20 TH/MM3 Mean Platelet Volume 7.7 FL Neutrophils (%) (Auto) % Lymphocytes (%) (Auto) % Monocytes (%) (Auto) % Eosinophils (%) (Auto) % Basophils (%) (Auto) % Neutrophils # (Auto) TH/MM3 Lymphocytes # (Auto) TH/MM3 Monocytes # (Auto) TH/MM3 Eosinophils # (Auto) TH/MM3 Basophils # (Auto) TH/MM3 CBC Comment AUTO DIFF Differential Total Cells 50 Counted Lymphocytes % 92 % Eosinophils % 4 % Neutrophils # (Manual) 0.0 TH/MM3 Myelocytes 4 % Differential Comment FINAL DIFF MANUAL Platelet Estimate RARE Platelet Morphology Comment NORMAL Ovalocytes 1+ Administered Medications Medications (Trade) Dose Ordered Sig/Maritza Route PRN Reason Start Time Stop Time Status Last Admin Dose Admin Sodium Chloride (NS Flush) 2 ml UNSCH PRN IV FLUSH FLUSH AFTER USING IV ACCESS 05/10/17 15:00 05/15/17 03:47 Sodium Chloride (NS Flush) 2 ml BID IV FLUSH 05/10/17 21:00 05/26/17 09:51 Acetaminophen (Tylenol) 650 mg Q4H PRN PO TEMP > 100.4 OR PREMEDICATION FOR BLOOD PRODUCT 05/10/17 15:00 05/27/17 12:00 Ondansetron HCl (Zofran Inj) 4 mg Q6H PRN IVP NAUSEA OR VOMITING 05/10/17 15:00 05/23/17 22:50 Senna/Docusate Sodium (Cinthia-Colace) 1 tab BID PO 05/10/17 21:00 05/20/17 08:18 Amlodipine Besylate (Norvasc) 5 mg DAILY PO 05/11/17 09:00 Hold 05/14/17 10:17 Atorvastatin Calcium (Lipitor) 20 mg DAILY PO 05/11/17 09:00 05/28/17 08:24 Lisinopril (Prinivil) 20 mg DAILY PO 05/11/17 09:00 05/26/17 09:43 Oxycodone HCl (Roxicodone) 5 mg Q4H PRN PO PAIN SCALE 3 TO 5 05/11/17 12:00 05/12/17 01:23 Metoprolol Tartrate 75 mg 75 mg BID PO 05/14/17 21:00 05/27/17 21:22 Sodium Chloride (NS 1000 ml Inj) 1,000 ml @ 30 mls/hr Q24H IV 05/15/17 12:00 05/28/17 05:03 Diphenhydramine HCl (Benadryl) 25 mg Q4H PRN PO PRE-MEDICATE FOR BLOOD PRODUCT 05/15/17 15:30 05/27/17 12:00 Sodium Chloride (NS Flush) DAILY IVF 05/19/17 09:00 05/26/17 09:56 Heparin Sodium (Porcine) (Heparin Central Flush) DAILY IV FLUSH 05/19/17 09:00 05/25/17 09:38 Objective Remarks GENERAL: Pleasantmale, upright in bed in nad SKIN: Warm and dry. souza catheter, chest wall, c/d/i; IV, left hand without bleeding. HEAD: Normocephalic. EYES: No injection or drainage. NECK: Supple, trachea midline. CARDIOVASCULAR: +S1/S2 RESPIRATORY: Breath sounds equal bilaterally. No accessory muscle use. GASTROINTESTINAL: Abdomen soft, non-tender, nondistended. EXTREMITIES: No cyanosis NEUROLOGICAL: awake and alert. normal speech. moving all extremities. 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 Started on induction systemic chemotherapy with idarubicin/cytarabine (3+7) on . Induction completed on 05/23/2017. (2) Neutropenic fever Status: Acute Plan: --levaquin stopped 05/27 --Blood cultures and urine cultures are negative to date. --remains afebrile. (3) Hyperbilirubinemia Status: Acute Plan: --combination of direct and indirect elevated. --unclear etiology --hepatitis panel is negative. (4) Respiratory insufficiency Status: Resolved Plan: --CXR, 05/23, shows improvement --pulmonology following --CT chest shows alveolar infiltrates. --on duonebs PRN --Lasix PRN (5) Atrial fibrillation Status: Acute Plan: --rate controlled on metoprolol Assessment 66y/o male with newly diagnosed AMML. Plan 1. AMML: D14 following initiation of idarubicin and cytarabine induction systemic therapy. His counts remain low but his WBC count did improve from 0.5- 0.7. Continue monitoring trend. 2. Cytopenias: Secondary to chemotherapy related myelosuppression, await count recovery. Once his counts are consistently improving I will obtain a bone marrow biopsy to assess for residual acute leukemia. 3. Febrile neutropenia: remains neutropenic. all cultures negative. Levofloxacin stopped on 05/27/2017. Problem Qualifiers (1) Acute myelomonocytic leukemia: Qualified Code: C92.50 - Acute myelomonocytic leukemia not having achieved remission Dwain Diez MD May 28, 2017 09:31
--- NOTE | 2017-05-28 10:38 | HHI.IDPN ---
Subjective Subjective Remarks is a 66 year old male, with newly Dx AML. Completed induction chemotherapy. Had some low grade temps which has resolved. C/S negative. Has developed debbi lung infiltrates, etiology?, but last CXR 05/23 showed improvement of infiltrates Events of last week noted Has remained afebrile Remains neutropenic, but counts slowly coming up Has been off Abx since 05/27 All C/S negative Breathing has improved, not coughing much Swallowing ok No N/V No diarrhea Voiding ok Noted to have rash on his face, occasionally itchy Antibiotics None Lines RIJ Jang Past Medical History Atrial fibrillation Hypertension Hyperlipidemia Arthritis Past Surgical History Hernia repair Tonsillectomy Left knee replacement Allergies: Coded Allergies: No Known Allergies (Unverified , 05/10/17) Objective . Vital Signs Date Time TempPulseRespB/PPulse OxO2 DeliveryO2 Flow RateFiO2 05/28/17 08:32Room Air 05/28/17 08:2197.2469631/5998 05/28/17 04:0787 05/28/17 04:0097.20664284/6899 05/28/17 00:0480 05/28/17 00:0097.2074488/6299 05/27/17 20:0096.39642524/6598 05/27/17 20:0089 05/27/17 16:3697.19664112/6999 05/27/17 12:4996.6617411/6398 05/27/17 12:4696.0864600/6399 05/27/17 12:1097.53861638/5296 / 14:5922:5906:59 Intake Wjudh220 iy7598 ml240 ml Output Xxxgg573 ml450 ml Wowsuzv690 ml835 ml-210 ml Intake Qmpe345 ml480 ml240 ml IV Uccvi432 ml Output Urine Pgeee361 ml450 ml # Voids2 # Bowel Movements1 . Laboratory Tests Test 05:0005:00 White Blood Count0.5 TH/MM30.7 TH/MM3 Red Blood Count2.39 MIL/MM32.73 MIL/MM3 Hemoglobin7.4 GM/DL8.4 GM/DL Hpuacgebki90.1 %23.0 % Mean Corpuscular Nuarrx37.3 FL84.4 FL Mean Corpuscular Zcxgvmxpxp15.8 PG30.8 PG Mean Corpuscular Nikfrqjcbq69.8 %36.5 % Concent Red Cell Distribution Width16.9 %19.2 % Platelet Count10 TH/MM320 TH/MM3 Mean Platelet Volume8.3 FL7.7 FL Neutrophils (%) (Auto) % % Lymphocytes (%) (Auto) % % Monocytes (%) (Auto) % % Eosinophils (%) (Auto) % % Basophils (%) (Auto) % % Neutrophils # (Auto) TH/MM3 TH/MM3 Lymphocytes # (Auto) TH/MM3 TH/MM3 Monocytes # (Auto) TH/MM3 TH/MM3 Eosinophils # (Auto) TH/MM3 TH/MM3 Basophils # (Auto) TH/MM3 TH/MM3 CBC CommentAUTO DIFF AUTO DIFF Differential Total Cells35 50 Counted Lymphocytes %83 %92 % Eosinophils %17 %4 % Neutrophils # (Manual)0.0 TH/MM30.0 TH/MM3 Differential CommentFINAL DIFFFINAL DIFF MANUALMANUAL Platelet EstimateRARE RARE Platelet Morphology CommentNORMAL NORMAL Ovalocytes1+ 1+ Myelocytes4 % Imaging Chest X-Ray 05/23/17 0000 Signed Impressions: Service Date/Time: Tuesday, May 23, 2017 11:16 - CONCLUSION: Interval improvement when compared to 7. Ryan Hoover MD FACR Catheter Placement X-Ray 05/18/17 0000 Signed Impressions: Service Date/Time: Thursday, May 18, 2017 16:40 - CONCLUSION: Uncomplicated ultrasound and fluoroscopic guided dual lumen Jang catheter implantation as described. Emerson Carrasquillo MD Chest CT 05/17/17 0000 Signed Impressions: Service Date/Time: April 17:53 - CONCLUSION: 1. Bilateral alveolar infiltrates most characteristic of pulmonary edema. 2. Small to moderate bilateral pleural effusions. 3. Small amount of pericardial fluid. 4. Coronary artery calcifications. 5. Prominent left lobe of the thyroid with low attenuation nodular area. Braxton Tidwell MD Bone Biopsy CT 05/11/17 1309 Signed Impressions: Service Date/Time: Thursday, May 11, 2017 15:10 - CONCLUSION: 1. Uncomplicated CT guided bone marrow aspirate. 2. Uncomplicated CT guided bone marrow biopsy. Ryan Hoover MD FACR Soft Tissue Ultrasound 05/11/17 0000 Signed Impressions: Service Date/Time: Thursday, May 11, 2017 08:27 - CONCLUSION: Negative for abscess. Edematous changes in the soft tissues of the left axilla. Hank Nixon MD Physical Exam GENERAL: awake and alert, not in respiratory distress. SKIN: Warm and dry. Has nodular pink rash on his face and scalp and come on his upper chest HEAD: Atraumatic. Normocephalic. No temporal wasting, or tenderness. EYES: No petechia or hemorrhage. Pupils equal, round and reactive to light. No scleral icterus. No injection or drainage. EARS, NOSE AND THROAT: Nose without bleeding or purulent nasal discharge. No sinus tenderness. Mucous membranes pink and moist. No oral lesions noted. He is edentulous. NECK: Trachea midline. Supple and not tender, no meningeal signs CARDIOVASCULAR: Irregular rate and rhythm. No murmurs, rubs or gallops heard RESPIRATORY: Coarse BS bilaterally ABDOMEN: Soft, non-tender, nondistended. Bowel sounds present and normoactive. No guarding. No rebound. No organomegaly. EXTREMITIES: No clubbing, cyanosis, or edema. No joint effusion, has good ROM. No calf tenderness. L axilla - there is an indurated area, better. NEUROLOGICAL: Non-focal PSYCHIATRIC: Normal affect, calm and cooperative. LINE: No evidence of infection Assessment & Plan Remarks IMPRESSION Fever, patient with newly Dx leukemia, monocytic - temps better - has possible folliculitis or hidradenitis L axilla, better - has tubes to R ear for infection - has new pulmonary infiltrates, ?infection, ?hemorrhage, improving - off Abx New bilateral infiltrates ? pneumonia - BNP 300+ - echo good LV function - better clinically and radiographically Rash, etiology? RECOMMENDATION Patient is off all Abx Counts still low, but seems to be trending up Monitor off Abx Monitor for S/Sxs of new infection Monitor rash He is clinically stable from ID standpoint I will sign off Please call if with any new ID question or issue Susie Garcia MDJustorm 2016 10:38
--- NOTE | 2017-05-28 18:50 | HHI.PR ---
Subjective Remarks 66 YOWM with ac Monomyelocytik leuk, bilat infilt No hemoptysis no Fever Feels better Up in chair., ambulates in the room No new complaint Objective Vital Signs Vital Signs Date Time Temp Pulse Resp B/P Pulse Ox O2 Delivery O2 Flow Rate FiO2 05/28/17 16:00 98.0 92 20 122/75 98 05/28/17 12:00 98.1 94 22 117/72 98 05/28/17 08:32 Room Air 05/28/17 08:21 97.8 92 18 95/59 98 05/28/17 04:07 87 05/28/17 04:00 97.7 82 17 108/68 99 05/28/17 00:04 80 05/28/17 00:00 97.8 83 18 96/62 99 05/27/17 20:00 96.9 90 18 102/65 98 05/27/17 20:00 89 I/O 05/27/17 05/27/17 05/27/17 05/28/17 05/28/17 05/28/17 07:00 15:00 23:00 07:00 15:00 23:00 Intake Total 240 ml 120 ml 1035 ml 240 ml Output Total 350 ml 200 ml 450 ml Balance -110 ml 120 ml 835 ml -210 ml Intake Oral 240 ml 120 ml 480 ml 240 ml IV Total 555 ml Output Urine Total 350 ml 200 ml 450 ml # Voids 2 # Bowel Movements 1 Result Diagram: 05/28/17 0500 05/25/17 0514 Objective Remarks GENERAL: WMWN WM, NAD SKIN: Warm and dry. HEAD: Normocephalic. EYES: No scleral icterus. No injection or drainage. NECK: Supple, trachea midline. No JVD or lymphadenopathy. CARDIOVASCULAR: Regular rate and rhythm without murmurs, gallops, or rubs. RESPIRATORY: Breath sounds equal bilaterally. No accessory muscle use. GASTROINTESTINAL: Abdomen soft, non-tender, nondistended. MUSCULOSKELETAL: No cyanosis, or edema. BACK: Nontender without obvious deformity. No CVA tenderness. A/P Assessment and Plan Bilat Infilt Pleural effusion mild Hemoptysis Ac Monomyelocytic Leukemia Pancytopenia PLAN" Cont Abx per ID monitor pl fluid Supplement 02 Monitor CBC Donald Mayo MD May 28, 2017 18:50
[2017-05-28 21:06] LABS: MEAN CORPUSCULAR HGB CONC 36.3 % (32.0-36.0)
[2017-05-29] VITALS (11 sets, daily range): BP systolic 103–134; BP diastolic 55–88; PULSE 81–96; RESP 16–18; TEMP 96–98.3; O2SAT 95–99
[2017-05-29] MEDS: SODIUM CHLOR 0.9% 1000 ML INJ 1,000 ML IV SCH (04:01)
[2017-05-29 05:51] LABS: BICARBONATE 23.6 MEQ/L (21.0-32.0); POTASSIUM 3.9 MEQ/L (3.5-5.1)
[2017-05-29] MEDS: INSULIN ASPART SUPPLEMENTAL SCALE SQ SCH ×2 (06:11→16:00)
[2017-05-29 06:28] LABS: MEAN CELL VOLUME 83.7 FL (80.0-100.0); MEAN CORPUSCULAR HEMOGLOBIN 30.4 PG (27.0-34.0); RED BLOOD COUNT 2.31 MIL/MM3 (4.50-5.90); RED CELL DISTRIBUTION WIDTH 18.5 % (11.6-17.2); WHITE BLOOD COUNT 0.4 TH/MM3 (4.0-11.0)
[2017-05-29 06:35] LABS: HEMO FLAGS AUTO DIFF
[2017-05-29 06:39] LABS: HEMATOCRIT 19.4 % (39.0-51.0); PLATELET COUNT 12 TH/MM3 (150-450)
[2017-05-29 07:37] LABS: WBC DIFF SAMPLE 50
[2017-05-29 07:38] LABS: OVALOCYTES 1+ (NORMAL); PLATELET ESTIMATE SMEAR RARE (NORMAL); PLATELET MORPHOLOGY NORMAL (NORMAL); ROULEAUX PRESENT (NORMAL); SCAN/DIFF FINAL DIFF MANUAL
[2017-05-29] MEDS: ATORVASTATIN 20 MG TAB PO SCH (08:04)
[2017-05-29] MEDS: SODIUM CHLORIDE 0.9% FLUSH 10 ML FLUSH IV FLUSH SCH ×2 (08:05→20:34)
[2017-05-29] MEDS: SODIUM CHLORIDE 0.9% FLUSH 10 ML FLUSH IVF SCH (08:05)
[2017-05-29] MEDS: DOCUSATE SODIUM 50 MG/SENNA 8.6 MG TAB PO SCH ×2 (08:05→20:34)
--- NOTE | 2017-05-29 09:15 | HHI.PR ---
Subjective Remarks Follow up for AML, neutropenia, thrombocytopenia. Patient is doing well. He had minor nose bleed overnight. Currently, no further bleeding. No fever, chills. Objective Vitals Vital Signs Date Time Temp Pulse Resp B/P Pulse Ox O2 Delivery O2 Flow Rate FiO2 05/29/17 08:13 Room Air 05/29/17 08:11 96.0 95 18 118/69 96 05/29/17 04:15 97.6 88 16 103/55 98 05/29/17 04:00 83 05/29/17 00:20 92 05/29/17 00:00 98.3 89 18 134/63 95 05/28/17 20:25 Room Air 05/28/17 20:25 97.2 98 16 117/56 97 05/28/17 20:05 96 05/28/17 16:00 98.0 92 20 122/75 98 05/28/17 12:00 98.1 94 22 117/72 98 I/O 05/28/17 05/28/17 05/28/17 05/29/17 05/29/17 05/29/17 07:00 15:00 23:00 07:00 15:00 23:00 Intake Total 240 ml 1460 ml Output Total 450 ml 700 ml Balance -210 ml 760 ml Intake Oral 240 ml 1460 ml Output Urine Total 450 ml 700 ml # Voids 6 Result Diagram: 05/29/17 0423 05/29/17 0423 Imaging Last Impressions Chest X-Ray 05/23/17 0000 Signed Impressions: Service Date/Time: Tuesday, May 23, 2017 11:16 - CONCLUSION: Interval improvement when compared to 7. Ryan Hoover MD FACR Catheter Placement X-Ray 05/18/17 0000 Signed Impressions: Service Date/Time: Thursday, May 18, 2017 16:40 - CONCLUSION: Uncomplicated ultrasound and fluoroscopic guided dual lumen Jang catheter implantation as described. Emerson Carrasquillo MD Chest CT 05/17/17 0000 Signed Impressions: Service Date/Time: April 17:53 - CONCLUSION: 1. Bilateral alveolar infiltrates most characteristic of pulmonary edema. 2. Small to moderate bilateral pleural effusions. 3. Small amount of pericardial fluid. 4. Coronary artery calcifications. 5. Prominent left lobe of the thyroid with low attenuation nodular area. Braxton Tidwell MD Bone Biopsy CT 05/11/17 1309 Signed Impressions: Service Date/Time: Thursday, May 11, 2017 15:10 - CONCLUSION: 1. Uncomplicated CT guided bone marrow aspirate. 2. Uncomplicated CT guided bone marrow biopsy. Ryan Hoover MD FACR Soft Tissue Ultrasound 05/11/17 0000 Signed Impressions: Service Date/Time: Thursday, May 11, 2017 08:27 - CONCLUSION: Negative for abscess. Edematous changes in the soft tissues of the left axilla. Hank Nixon MD Objective Remarks GENERAL: Alert, NAD. SKIN: Warm and dry. HEAD: Normocephalic. EYES: No scleral icterus. No injection or drainage. NECK: Supple, trachea midline. No JVD or lymphadenopathy. CARDIOVASCULAR: Irreg Irreg without murmurs, gallops, or rubs. RESPIRATORY: Breath sounds equal bilaterally. No accessory muscle use. GASTROINTESTINAL: Abdomen soft, non-tender, nondistended. MUSCULOSKELETAL: No cyanosis, or edema. BACK: Nontender without obvious deformity. No CVA tenderness. Procedures Echo 05/14/2017 CONCLUSIONS The left ventricular systolic function is normal with an estimated ejection fraction in the range of 55-60%. Wall thickness is measured at the upper limits of normal. The right ventricle is mildly dilated. Mild mitral valve regurgitation. There is trace tricuspid valve regurgitation. A/P Problem List: (1) Pancytopenia ICD Code: D61.818 Status: Acute (2) Macrocytic anemia ICD Code: D53.9 Status: Acute (3) Alcohol abuse ICD Code: F10.10 Status: Acute (4) S/P tympanic tube insertion ICD Code: Z96.22 Status: Acute Assessment and Plan Mr. Gutiérrez is a 66 y/o male with a history of HTN, HLD, AFIB and arthritis presented to the ED with complaints of dizziness and weakness. A recent blood work by PCP showed rapid decline in his H&H which prompted patient to seek medical attention. Due to pancytopenia, hematology/oncology was consulted. - Acute myelomonocytic anemia - Medical oncology following. Remains pancytopenic. - S/p bone marrow biopsy. Pathology revealed acute myelomonocytic leukemia. - Induction chemotherapy completed 05/23/2017. - Reviewed labs by la - WBC 0.4, PLT 12 on 05/29. - Acute respiratory failure - Pleural effusion - Probable pneumonia - Left axillary cellulitis - Continue Levaquin while patient is neutropenic. - ID discontinued Vancomycin. - CXR showed improvement with minimal airspace disease. - CXR shows improvement. Was on Levaquin, stopped on 05/27/2017. Patient remains afebrile. - Hypertension - BP is on the lower side - around 100 systolic. - Hyperlipidemia - Continue atorvastatin 20 mg daily at bedtime - Hold Amlodipine and Lisinopril for now. - Atrial fibrillation - Reduce metoprolol 25 mg PO Q8hrs. No anticoagulant medications at this point. Full code. SCDs. Braeden Stanley DO May 29, 2017 9:15 am
--- NOTE | 2017-05-29 09:55 | PD.ONC.PN ---
Subjective Subjective Remarks Reports fatigue and weakness, tells me he had difficulty ambulating across the room yesterday. His legs felt quite weak, and he was also short of breath. Denies having had febrile illness, denies nausea, vomiting but continues to have loose bowel movements. Continues to have bleeding from the nose but this is not continuous. Objective Data Date Time Temp Pulse Resp B/P Pulse Ox O2 Delivery O2 Flow Rate FiO2 05/29/17 08:13 Room Air 05/29/17 08:11 96.0 95 18 118/69 96 05/29/17 04:15 97.6 88 16 103/55 98 05/29/17 04:00 83 05/29/17 00:20 92 05/29/17 00:00 98.3 89 18 134/63 95 05/28/17 20:25 Room Air 05/28/17 20:25 97.2 98 16 117/56 97 05/28/17 20:05 96 05/28/17 16:00 98.0 92 20 122/75 98 05/28/17 12:00 98.1 94 22 117/72 98 05/29/17 05/29/17 05/29/17 07:00 15:00 23:00 Intake Total 480 ml Balance 480 ml Result Diagram: 05/29/17 0423 05/29/17 0423 Laboratory Results Laboratory Tests Test 05/29/17 05/29/17 04:23 08:59 White Blood Count 0.4 TH/MM3 Red Blood Count 2.31 MIL/MM3 Hemoglobin 7.0 GM/DL Hematocrit 19.4 % Mean Corpuscular Volume 83.7 FL Mean Corpuscular Hemoglobin 30.4 PG Mean Corpuscular Hemoglobin 36.3 % Concent Red Cell Distribution Width 18.5 % Platelet Count 12 TH/MM3 Mean Platelet Volume 8.1 FL Neutrophils (%) (Auto) % Lymphocytes (%) (Auto) % Monocytes (%) (Auto) % Eosinophils (%) (Auto) % Basophils (%) (Auto) % Neutrophils # (Auto) TH/MM3 Lymphocytes # (Auto) TH/MM3 Monocytes # (Auto) TH/MM3 Eosinophils # (Auto) TH/MM3 Basophils # (Auto) TH/MM3 CBC Comment AUTO DIFF Differential Total Cells 50 Counted Lymphocytes % 100 % Differential Comment FINAL DIFF MANUAL Platelet Estimate RARE Platelet Morphology Comment NORMAL Ovalocytes 1+ Rouleau PRESENT Sodium Level 138 MEQ/L Potassium Level 3.9 MEQ/L Chloride Level 107 MEQ/L Carbon Dioxide Level 23.6 MEQ/L Anion Gap 7 MEQ/L Blood Urea Nitrogen 22 MG/DL Creatinine 0.61 MG/DL Estimat Glomerular Filtration 133 ML/MIN Rate Random Glucose 120 MG/DL Calcium Level 8.1 MG/DL Blood Type A POSITIVE Crossmatch Irradiated/Leukocyte-Reduced RBC Blood Bank Comment Administered Medications Medications (Trade) Dose Ordered Sig/Maritza Route PRN Reason Start Time Stop Time Status Last Admin Dose Admin Sodium Chloride (NS Flush) 2 ml UNSCH PRN IV FLUSH FLUSH AFTER USING IV ACCESS 05/10/17 15:00 05/15/17 03:47 Sodium Chloride (NS Flush) 2 ml BID IV FLUSH 05/10/17 21:00 05/26/17 09:51 Acetaminophen (Tylenol) 650 mg Q4H PRN PO TEMP > 100.4 OR PREMEDICATION FOR BLOOD PRODUCT 05/10/17 15:00 05/27/17 12:00 Ondansetron HCl (Zofran Inj) 4 mg Q6H PRN IVP NAUSEA OR VOMITING 05/10/17 15:00 05/23/17 22:50 Senna/Docusate Sodium (Cinthia-Colace) 1 tab BID PO 05/10/17 21:00 05/20/17 08:18 Amlodipine Besylate (Norvasc) 5 mg DAILY PO 05/11/17 09:00 Hold 05/14/17 10:17 Atorvastatin Calcium (Lipitor) 20 mg DAILY PO 05/11/17 09:00 05/29/17 08:04 Lisinopril (Prinivil) 20 mg DAILY PO 05/11/17 09:00 Hold 05/26/17 09:43 Oxycodone HCl (Roxicodone) 5 mg Q4H PRN PO PAIN SCALE 3 TO 5 05/11/17 12:00 05/12/17 01:23 Metoprolol Tartrate 75 mg 75 mg BID PO 05/14/17 21:00 05/27/17 21:22 Sodium Chloride (NS 1000 ml Inj) 1,000 ml @ 30 mls/hr Q24H IV 05/15/17 12:00 05/29/17 04:01 Diphenhydramine HCl (Benadryl) 25 mg Q4H PRN PO PRE-MEDICATE FOR BLOOD PRODUCT 05/15/17 15:30 05/27/17 12:00 Sodium Chloride (NS Flush) DAILY IVF 05/19/17 09:00 05/26/17 09:56 Heparin Sodium (Porcine) (Heparin Central Flush) DAILY IV FLUSH 05/19/17 09:00 05/25/17 09:38 Objective Remarks GENERAL: Pleasant male, upright in bed in nad SKIN: Warm and dry. souza catheter, chest wall, c/d/i; IV, left hand without bleeding. HEAD: Normocephalic. EYES: No injection or drainage. NECK: Supple, trachea midline. CARDIOVASCULAR: +S1/S2 RESPIRATORY: Breath sounds equal bilaterally. No accessory muscle use. GASTROINTESTINAL: Abdomen soft, non-tender, nondistended. EXTREMITIES: No cyanosis NEUROLOGICAL: awake and alert. normal speech. moving all extremities. 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 Started on induction systemic chemotherapy with idarubicin/cytarabine (3+7) on . Induction completed on 05/23/2017. (2) Neutropenic fever Status: Acute Plan: --levaquin stopped 05/27 --Blood cultures and urine cultures are negative to date. --remains afebrile. (3) Hyperbilirubinemia Status: Acute Plan: --combination of direct and indirect elevated. --unclear etiology --hepatitis panel is negative. (4) Respiratory insufficiency Status: Resolved Plan: --CXR, 05/23, shows improvement --pulmonology following --CT chest shows alveolar infiltrates. --on duonebs PRN --Lasix PRN (5) Atrial fibrillation Status: Acute Plan: --rate controlled on metoprolol Assessment 66y/o male with newly diagnosed AMML. Plan 1. AMML: D15 following initiation of idarubicin and cytarabine induction systemic therapy. Counts remain low. Continue monitoring trend. 2. Cytopenias: Secondary to chemotherapy related myelosuppression, await count recovery. Once his counts are consistently improving I will obtain a bone marrow biopsy to assess for residual acute leukemia. 3. Febrile neutropenia: remains neutropenic. all cultures negative. Levofloxacin stopped on 05/27/2017. 4. Facial rash: Monitor, if it persists or worsens obtained biopsy to rule out leukemia cutis which tends to be more prevalent in AMML. 5. Hypotension: Decrease Lopressor to 25 mg by mouth every 8 hours. He does have A. fib and needs rate control. Problem Qualifiers (1) Acute myelomonocytic leukemia: Qualified Code: C92.50 - Acute myelomonocytic leukemia not having achieved remission Dwain Diez MD May 29, 2017 09:55
[2017-05-29] MEDS ORDERED: METOPROLOL TARTRATE 50 MG TAB PO ONE (10:00)
[2017-05-29] MEDS: ACETAMINOPHEN 325 MG TAB PO PRN (11:30)
[2017-05-29] MEDS: diphenhydrAMINE HCL 25 MG CAP PO PRN (11:30)
[2017-05-29] MEDS: METOPROLOL TARTRATE 25 MG TAB PO SCH (18:18)
--- NOTE | 2017-05-29 20:01 | HHI.PR ---
Subjective Remarks 66 YOWM with ac Monomyelocytik leuk, bilat infilt No hemoptysis no Fever Feels better No new complaint Objective Vital Signs Vital Signs Date Time Temp Pulse Resp B/P Pulse Ox O2 Delivery O2 Flow Rate FiO2 05/29/17 16:00 97.0 92 16 110/74 96 05/29/17 12:15 97.6 88 18 108/88 99 05/29/17 12:00 96.8 96 18 108/71 95 05/29/17 11:53 97.7 87 18 114/65 98 05/29/17 08:13 Room Air 05/29/17 08:11 96.0 95 18 118/69 96 05/29/17 04:15 97.6 88 16 103/55 98 05/29/17 04:00 83 05/29/17 00:20 92 05/29/17 00:00 98.3 89 18 134/63 95 05/28/17 20:25 Room Air 05/28/17 20:25 97.2 98 16 117/56 97 05/28/17 20:05 96 I/O 05/28/17 05/28/17 05/28/17 05/29/17 05/29/17 05/29/17 07:00 15:00 23:00 07:00 15:00 23:00 Intake Total 240 ml 1460 ml 840 ml 394 ml Output Total 450 ml 700 ml 700 ml Balance -210 ml 760 ml 140 ml 394 ml Intake Oral 240 ml 1460 ml 840 ml IV Total 394 ml Output Urine Total 450 ml 700 ml 700 ml # Voids 6 # Bowel Movements 0 Result Diagram: 05/29/17 0423 05/29/17 0423 Objective Remarks GENERAL: WMWN WM, NAD SKIN: Warm and dry. HEAD: Normocephalic. EYES: No scleral icterus. No injection or drainage. NECK: Supple, trachea midline. No JVD or lymphadenopathy. CARDIOVASCULAR: Regular rate and rhythm without murmurs, gallops, or rubs. RESPIRATORY: Breath sounds equal bilaterally. No accessory muscle use. GASTROINTESTINAL: Abdomen soft, non-tender, nondistended. MUSCULOSKELETAL: No cyanosis, or edema. BACK: Nontender without obvious deformity. No CVA tenderness. A/P Assessment and Plan Bilat Infilt Pleural effusion mild Hemoptysis Ac Monomyelocytic Leukemia Pancytopenia PLAN" Cont Abx per ID monitor pl fluid Supplement 02 Monitor CBC Stable from pulm standpoint Donald Maoy MD May 29, 2017 20:01
[2017-05-30] VITALS (12 sets, daily range): BP systolic 99–121; BP diastolic 51–74; PULSE 77–95; RESP 16–20; TEMP 96.6–98.2; O2SAT 96–100
[2017-05-30] MEDS: METOPROLOL TARTRATE 25 MG TAB PO SCH ×3 (00:57→16:41)
[2017-05-30] MEDS: SODIUM CHLOR 0.9% 1000 ML INJ 1,000 ML IV SCH (04:33)
[2017-05-30 05:14] LABS: HEMATOCRIT 21.3 % (39.0-51.0); MEAN CELL VOLUME 84.3 FL (80.0-100.0); MEAN CORPUSCULAR HGB CONC 34.4 % (32.0-36.0); RED BLOOD COUNT 2.52 MIL/MM3 (4.50-5.90); RED CELL DISTRIBUTION WIDTH 17.1 % (11.6-17.2); WHITE BLOOD COUNT 0.4 TH/MM3 (4.0-11.0)
[2017-05-30 05:21] LABS: HEMO FLAGS AUTO DIFF
[2017-05-30 05:25] LABS: PLATELET COUNT 8 TH/MM3 (150-450)
[2017-05-30] MEDS: INSULIN ASPART SUPPLEMENTAL SCALE SQ SCH ×2 (07:00→16:00)
[2017-05-30 08:41] LABS: PLATELET ESTIMATE SMEAR RARE (NORMAL); PLATELET MORPHOLOGY NORMAL (NORMAL); WBC DIFF SAMPLE 30
[2017-05-30 08:42] LABS: SCAN/DIFF FINAL DIFF MANUAL
--- NOTE | 2017-05-30 08:48 | PD.ONC.PN ---
Subjective Subjective Remarks Patient seen and examined. He feels generally tired. He continues to have bleeding from the nose when he blows out. Denies fevers or chills. 1 unit PLT and pRBCs have been ordered for today. Objective Data Date Time Temp Pulse Resp B/P Pulse Ox O2 Delivery O2 Flow Rate FiO2 05/30/17 08:00 97.0 82 16 107/67 97 05/30/17 04:00 85 05/30/17 04:00 97.5 86 16 112/60 97 05/30/17 00:00 91 05/30/17 00:00 97.7 77 16 115/58 98 05/29/17 20:34 98 Room Air 05/29/17 20:30 98.2 81 16 107/63 98 05/29/17 20:00 89 05/29/17 16:00 97.0 92 16 110/74 96 05/29/17 12:15 97.6 88 18 108/88 99 05/29/17 12:00 96.8 96 18 108/71 95 05/29/17 11:53 97.7 87 18 114/65 98 05/30/17 05/30/17 05/30/17 07:00 15:00 23:00 Intake Total 490 ml 480 ml Output Total 400 ml 150 ml Balance 90 ml 330 ml Result Diagram: 05/30/17 0430 05/29/17 0423 Laboratory Results Laboratory Tests Test 05/29/17 05/30/17 05/30/17 08:59 04:30 06:27 Blood Type A POSITIVE Crossmatch Irradiated/Leukocyte-Reduced RBC Blood Bank Comment White Blood Count 0.4 TH/MM3 Red Blood Count 2.52 MIL/MM3 Hemoglobin 7.3 GM/DL Hematocrit 21.3 % Mean Corpuscular Volume 84.3 FL Mean Corpuscular Hemoglobin 29.0 PG Mean Corpuscular Hemoglobin 34.4 % Concent Red Cell Distribution Width 17.1 % Platelet Count 8 TH/MM3 Mean Platelet Volume 7.8 FL Neutrophils (%) (Auto) % Lymphocytes (%) (Auto) % Monocytes (%) (Auto) % Eosinophils (%) (Auto) % Basophils (%) (Auto) % Neutrophils # (Auto) TH/MM3 Lymphocytes # (Auto) TH/MM3 Monocytes # (Auto) TH/MM3 Eosinophils # (Auto) TH/MM3 Basophils # (Auto) TH/MM3 CBC Comment AUTO DIFF Differential Total Cells 30 Counted Lymphocytes % 100 % Differential Comment FINAL DIFF MANUAL Platelet Estimate RARE Platelet Morphology Comment NORMAL Administered Medications Medications (Trade) Dose Ordered Sig/Maritza Route PRN Reason Start Time Stop Time Status Last Admin Dose Admin Sodium Chloride (NS Flush) 2 ml UNSCH PRN IV FLUSH FLUSH AFTER USING IV ACCESS 05/10/17 15:00 05/15/17 03:47 Sodium Chloride (NS Flush) 2 ml BID IV FLUSH 05/10/17 21:00 05/26/17 09:51 Acetaminophen (Tylenol) 650 mg Q4H PRN PO TEMP > 100.4 OR PREMEDICATION FOR BLOOD PRODUCT 05/10/17 15:00 05/29/17 11:30 Ondansetron HCl (Zofran Inj) 4 mg Q6H PRN IVP NAUSEA OR VOMITING 05/10/17 15:00 05/23/17 22:50 Senna/Docusate Sodium (Cinthia-Colace) 1 tab BID PO 05/10/17 21:00 05/20/17 08:18 Amlodipine Besylate (Norvasc) 5 mg DAILY PO 05/11/17 09:00 Hold 05/14/17 10:17 Atorvastatin Calcium (Lipitor) 20 mg DAILY PO 05/11/17 09:00 05/29/17 08:04 Lisinopril (Prinivil) 20 mg DAILY PO 05/11/17 09:00 Hold 05/26/17 09:43 Oxycodone HCl 5 mg 5 mg Q4H PRN PO PAIN SCALE 3 TO 5 05/11/17 12:00 05/12/17 01:23 Sodium Chloride (NS 1000 ml Inj) 1,000 ml @ 30 mls/hr Q24H IV 05/15/17 12:00 05/30/17 04:33 Diphenhydramine HCl (Benadryl) 25 mg Q4H PRN PO PRE-MEDICATE FOR BLOOD PRODUCT 05/15/17 15:30 05/29/17 11:30 Sodium Chloride (NS Flush) DAILY IVF 05/19/17 09:00 05/26/17 09:56 Heparin Sodium (Porcine) (Heparin Central Flush) DAILY IV FLUSH 05/19/17 09:00 05/25/17 09:38 Metoprolol Tartrate (Lopressor) 25 mg Q8H PO 05/29/17 17:00 05/30/17 00:57 Objective Remarks GENERAL: Pleasant male, upright in bed in nad SKIN: Warm and dry. souza catheter, chest wall, c/d/i; IV, left hand without bleeding. HEAD: Normocephalic. EYES: No injection or drainage. NECK: Supple, trachea midline. CARDIOVASCULAR: +S1/S2 RESPIRATORY: Breath sounds equal bilaterally. No accessory muscle use. GASTROINTESTINAL: Abdomen soft, non-tender, nondistended. EXTREMITIES: No cyanosis NEUROLOGICAL: awake and alert. normal speech. moving all extremities. 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 Started on induction systemic chemotherapy with idarubicin/cytarabine (3+7) on . Induction completed on 05/23/2017. (2) Neutropenic fever Status: Acute Plan: --levaquin stopped 05/27 --Blood cultures and urine cultures are negative to date. --remains afebrile. (3) Hyperbilirubinemia Status: Acute Plan: --combination of direct and indirect elevated. --unclear etiology --hepatitis panel is negative. (4) Respiratory insufficiency Status: Resolved Plan: --CXR, 05/23, shows improvement --pulmonology following --CT chest shows alveolar infiltrates. --on duonebs PRN --Lasix PRN (5) Atrial fibrillation Status: Acute Plan: --rate controlled on metoprolol Assessment 66y/o male with newly diagnosed AMML. Plan 1. AMML: D17 following initiation of idarubicin and cytarabine induction systemic therapy. Counts remain low. Continue monitoring trend. 2. Cytopenias: Secondary to chemotherapy related myelosuppression, await count recovery. Continue supportive transfusions Once his counts are consistently improving I will obtain a bone marrow biopsy to assess for residual acute leukemia. 3. Febrile neutropenia: remains neutropenic. all cultures negative. Levofloxacin stopped on 05/27/2017. 4. Facial rash: Monitor, if it persists or worsens obtained biopsy to rule out leukemia cutis which tends to be more prevalent in AMML. 5. Hypotension: Decrease Lopressor to 25 mg by mouth every 8 hours. He does have A. fib and needs rate control. Problem Qualifiers (1) Acute myelomonocytic leukemia: Qualified Code: C92.50 - Acute myelomonocytic leukemia not having achieved remission Dwain Diez MD May 30, 2017 08:48
[2017-05-30] MEDS: SODIUM CHLORIDE 0.9% FLUSH 10 ML FLUSH IVF SCH (09:00)
[2017-05-30] MEDS: DOCUSATE SODIUM 50 MG/SENNA 8.6 MG TAB PO SCH ×2 (09:00→20:38)
[2017-05-30] MEDS: SODIUM CHLORIDE 0.9% FLUSH 10 ML FLUSH IV FLUSH SCH ×2 (09:00→20:38)
[2017-05-30] MEDS: ATORVASTATIN 20 MG TAB PO SCH (10:17)
[2017-05-30] MEDS: diphenhydrAMINE HCL 25 MG CAP PO PRN ×2 (11:04→15:12)
[2017-05-30] MEDS: ACETAMINOPHEN 325 MG TAB PO PRN ×2 (11:04→15:12)
--- NOTE | 2017-05-30 12:30 | HHI.PR ---
Subjective Remarks Follow up for AML, neutropenia, thrombocytopenia. Patient is doing well. He had some nose bleed today too. No fever, chills. Objective Vitals Vital Signs Date Time Temp Pulse Resp B/P Pulse Ox O2 Delivery O2 Flow Rate FiO2 05/30/17 12:15 Room Air 05/30/17 12:14 97.4 87 20 105/62 98 05/30/17 12:00 97.6 80 18 99/68 99 05/30/17 08:00 95 05/30/17 08:00 97.0 82 16 107/67 97 05/30/17 04:00 85 05/30/17 04:00 97.5 86 16 112/60 97 05/30/17 00:00 91 05/30/17 00:00 97.7 77 16 115/58 98 05/29/17 20:34 98 Room Air 05/29/17 20:30 98.2 81 16 107/63 98 05/29/17 20:00 89 05/29/17 16:00 97.0 92 16 110/74 96 I/O 05/29/17 05/29/17 05/29/17 05/30/17 05/30/17 05/30/17 07:00 15:00 23:00 07:00 15:00 23:00 Intake Total 840 ml 1134 ml 490 ml 480 ml Output Total 700 ml 250 ml 400 ml 275 ml Balance 140 ml 884 ml 90 ml 205 ml Intake Oral 840 ml 500 ml 250 ml 480 ml IV Total 634 ml 240 ml Output Urine Total 700 ml 250 ml 400 ml 275 ml # Bowel Movements 0 Result Diagram: 05/30/17 0430 05/29/17 0423 Objective Remarks GENERAL: Alert, NAD. SKIN: Warm and dry. HEAD: Normocephalic. EYES: No scleral icterus. No injection or drainage. NECK: Supple, trachea midline. No JVD or lymphadenopathy. CARDIOVASCULAR: Irreg Irreg without murmurs, gallops, or rubs. RESPIRATORY: Breath sounds equal bilaterally. No accessory muscle use. GASTROINTESTINAL: Abdomen soft, non-tender, nondistended. MUSCULOSKELETAL: No cyanosis, or edema. BACK: Nontender without obvious deformity. No CVA tenderness. Procedures Echo 05/14/2017 CONCLUSIONS The left ventricular systolic function is normal with an estimated ejection fraction in the range of 55-60%. Wall thickness is measured at the upper limits of normal. The right ventricle is mildly dilated. Mild mitral valve regurgitation. There is trace tricuspid valve regurgitation. A/P Problem List: (1) Pancytopenia ICD Code: D61.818 Status: Acute (2) Macrocytic anemia ICD Code: D53.9 Status: Acute (3) Alcohol abuse ICD Code: F10.10 Status: Acute (4) S/P tympanic tube insertion ICD Code: Z96.22 Status: Acute Assessment and Plan Mr. Gutiérrez is a 66 y/o male with a history of HTN, HLD, AFIB and arthritis presented to the ED with complaints of dizziness and weakness. A recent blood work by PCP showed rapid decline in his H&H which prompted patient to seek medical attention. Due to pancytopenia, hematology/oncology was consulted. - Acute myelomonocytic anemia - Medical oncology following. Remains pancytopenic. - S/p bone marrow biopsy. Pathology revealed acute myelomonocytic leukemia. - Induction chemotherapy completed 05/23/2017. - Reviewed labs by co - WBC 0.4, PLT 8, Hgb 7.3. - Hematology ordered PRBCs and Platelet transfusions. - Acute respiratory failure - Pleural effusion - Probable pneumonia - Left axillary cellulitis - ID discontinued Vancomycin. - CXR showed improvement with minimal airspace disease. - CXR shows improvement. Was on Levaquin, stopped on 05/27/2017. Patient remains afebrile. - Hypertension - BP is on the lower side - around 100 systolic. - Hyperlipidemia - Continue atorvastatin 20 mg daily at bedtime - Hold Amlodipine and Lisinopril for now. - Atrial fibrillation - Reduced metoprolol 25 mg PO Q8hrs. No anticoagulant medications at this point. Full code. SCDs. Braeden Stanley DO May 30, 2017 12:30 pm
--- NOTE | 2017-05-30 16:50 | HHI.PR ---
Subjective Remarks 66 YOWM with ac Monomyelocytik leuk, bilat infilt No hemoptysis no Fever Feels better mild nose bleed Objective Vital Signs Vital Signs Date Time Temp Pulse Resp B/P Pulse Ox O2 Delivery O2 Flow Rate FiO2 05/30/17 16:40 85 99/64 05/30/17 15:28 98.2 88 18 103/66 98 05/30/17 15:09 97.9 80 20 105/51 98 05/30/17 12:15 Room Air 05/30/17 12:14 97.4 87 20 105/62 98 05/30/17 12:00 97.6 80 18 99/68 99 05/30/17 08:00 95 05/30/17 08:00 97.0 82 16 107/67 97 05/30/17 04:00 85 05/30/17 04:00 97.5 86 16 112/60 97 05/30/17 00:00 91 05/30/17 00:00 97.7 77 16 115/58 98 05/29/17 20:34 98 Room Air 05/29/17 20:30 98.2 81 16 107/63 98 05/29/17 20:00 89 I/O 05/29/17 05/29/17 05/29/17 05/30/17 05/30/17 05/30/17 07:00 15:00 23:00 07:00 15:00 23:00 Intake Total 840 ml 1134 ml 490 ml 480 ml Output Total 700 ml 250 ml 400 ml 275 ml Balance 140 ml 884 ml 90 ml 205 ml Intake Oral 840 ml 500 ml 250 ml 480 ml IV Total 634 ml 240 ml Output Urine Total 700 ml 250 ml 400 ml 275 ml # Bowel Movements 0 Result Diagram: 05/30/17 0430 05/29/17 0423 Objective Remarks GENERAL: WMWN WM, NAD SKIN: Warm and dry. HEAD: Normocephalic. EYES: No scleral icterus. No injection or drainage. NECK: Supple, trachea midline. No JVD or lymphadenopathy. CARDIOVASCULAR: Regular rate and rhythm without murmurs, gallops, or rubs. RESPIRATORY: Breath sounds equal bilaterally. No accessory muscle use. GASTROINTESTINAL: Abdomen soft, non-tender, nondistended. MUSCULOSKELETAL: No cyanosis, or edema. BACK: Nontender without obvious deformity. No CVA tenderness. A/P Assessment and Plan Bilat Infilt Pleural effusion mild Hemoptysis Ac Monomyelocytic Leukemia Pancytopenia PLAN" Cont Abx per ID monitor pl fluid Supplement 02 Monitor CBC Stable from pulm standpoint Platlets and PRBC today. Donald Mayo MD May 30, 2017 16:50
[2017-05-31] VITALS (13 sets, daily range): BP systolic 98–123; BP diastolic 54–84; PULSE 73–129; RESP 16–21; TEMP 96.4–101.7; O2SAT 96–100
[2017-05-31] MEDS: METOPROLOL TARTRATE 25 MG TAB PO SCH ×3 (01:45→18:05)
[2017-05-31 05:52] LABS: MEAN CELL VOLUME 84.1 FL (80.0-100.0); MEAN CORPUSCULAR HEMOGLOBIN 29.1 PG (27.0-34.0); MEAN CORPUSCULAR HGB CONC 34.6 % (32.0-36.0); PLATELET COUNT 22 TH/MM3 (150-450); RED BLOOD COUNT 2.48 MIL/MM3 (4.50-5.90); RED CELL DISTRIBUTION WIDTH 16.8 % (11.6-17.2); WHITE BLOOD COUNT 0.3 TH/MM3 (4.0-11.0)
[2017-05-31 06:01] LABS: HEMO FLAGS AUTO DIFF
[2017-05-31 06:03] LABS: HEMATOCRIT 20.8 % (39.0-51.0)
[2017-05-31] MEDS: INSULIN ASPART SUPPLEMENTAL SCALE SQ SCH ×2 (07:00→16:00)
[2017-05-31] MEDS ORDERED: SODIUM CHLORIDE 0.65% NASAL SPRAY 45 ML BTL EACH NARE PRN (08:30)
--- NOTE | 2017-05-31 08:32 | PD.ONC.PN ---
Subjective Subjective Remarks Subjectively he continues to feel fatigued, denies fevers, occasionally has chills at nighttime. He is eating well, he tells me he has been walking in the hallways despite feeling fatigued. He tells me his nosebleeds have decreased somewhat since last night. Denies diarrhea or GI bleeding. Objective Data Date Time Temp Pulse Resp B/P Pulse Ox O2 Delivery O2 Flow Rate FiO2 05/31/17 04:00 98.6 96 16 123/60 96 05/31/17 04:00 73 05/31/17 00:00 91 05/31/17 00:00 96.4 112 16 109/54 97 05/30/17 20:34 96 Room Air 05/30/17 20:00 84 05/30/17 18:10 98.1 88 20 101/61 96 05/30/17 17:00 96.6 83 18 121/74 100 05/30/17 16:40 85 99/64 05/30/17 16:00 86 05/30/17 15:28 98.2 88 18 103/66 98 05/30/17 15:09 97.9 80 20 105/51 98 05/30/17 12:15 Room Air 05/30/17 12:14 97.4 87 20 105/62 98 05/30/17 12:00 86 05/30/17 12:00 97.6 80 18 99/68 99 05/31/17 05/31/17 05/31/17 07:00 15:00 23:00 Intake Total 490 ml Output Total 850 ml Balance -360 ml Result Diagram: 05/31/17 0417 05/29/17 0423 Laboratory Results Laboratory Tests Test 05/31/17 05/31/17 04:17 06:36 White Blood Count 0.3 TH/MM3 Red Blood Count 2.48 MIL/MM3 Hemoglobin 7.2 GM/DL Hematocrit 20.8 % Mean Corpuscular Volume 84.1 FL Mean Corpuscular Hemoglobin 29.1 PG Mean Corpuscular Hemoglobin 34.6 % Concent Red Cell Distribution Width 16.8 % Platelet Count 22 TH/MM3 Mean Platelet Volume 8.4 FL Neutrophils (%) (Auto) % Lymphocytes (%) (Auto) % Monocytes (%) (Auto) % Eosinophils (%) (Auto) % Basophils (%) (Auto) % Neutrophils # (Auto) TH/MM3 Lymphocytes # (Auto) TH/MM3 Monocytes # (Auto) TH/MM3 Eosinophils # (Auto) TH/MM3 Basophils # (Auto) TH/MM3 CBC Comment AUTO DIFF Blood Type A POSITIVE Crossmatch Irradiated/Leukocyte-Reduced RBC Blood Bank Comment Administered Medications Medications (Trade) Dose Ordered Sig/Maritza Route PRN Reason Start Time Stop Time Status Last Admin Dose Admin Sodium Chloride (NS Flush) 2 ml UNSCH PRN IV FLUSH FLUSH AFTER USING IV ACCESS 05/10/17 15:00 05/15/17 03:47 Sodium Chloride (NS Flush) 2 ml BID IV FLUSH 05/10/17 21:00 05/30/17 20:38 Acetaminophen (Tylenol) 650 mg Q4H PRN PO TEMP > 100.4 OR PREMEDICATION FOR BLOOD PRODUCT 05/10/17 15:00 05/30/17 15:12 Ondansetron HCl (Zofran Inj) 4 mg Q6H PRN IVP NAUSEA OR VOMITING 05/10/17 15:00 05/23/17 22:50 Senna/Docusate Sodium (Cinthia-Colace) 1 tab BID PO 05/10/17 21:00 05/20/17 08:18 Amlodipine Besylate (Norvasc) 5 mg DAILY PO 05/11/17 09:00 Hold 05/14/17 10:17 Atorvastatin Calcium (Lipitor) 20 mg DAILY PO 05/11/17 09:00 05/30/17 10:17 Lisinopril (Prinivil) 20 mg DAILY PO 05/11/17 09:00 Hold 05/26/17 09:43 Oxycodone HCl 5 mg 5 mg Q4H PRN PO PAIN SCALE 3 TO 5 05/11/17 12:00 05/12/17 01:23 Sodium Chloride (NS 1000 ml Inj) 1,000 ml @ 30 mls/hr Q24H IV 05/15/17 12:00 05/30/17 04:33 Diphenhydramine HCl (Benadryl) 25 mg Q4H PRN PO PRE-MEDICATE FOR BLOOD PRODUCT 05/15/17 15:30 05/30/17 15:12 Sodium Chloride (NS Flush) DAILY IVF 05/19/17 09:00 05/26/17 09:56 Heparin Sodium (Porcine) (Heparin Central Flush) DAILY IV FLUSH 05/19/17 09:00 05/25/17 09:38 Metoprolol Tartrate (Lopressor) 25 mg Q8H PO 05/29/17 17:00 05/31/17 01:45 Objective Remarks GENERAL: Pleasant male, upright in bed in nad SKIN: Warm and dry. souza catheter on the right side, chest wall, c/d/i; IV, left hand without bleeding. HEAD: Normocephalic. EYES: No injection or drainage. Nose: Dried blood in the nares bilaterally. No active bleeding noted. NECK: Supple, trachea midline. CARDIOVASCULAR: +S1/S2, no obvious murmurs or gallops. RESPIRATORY: Breath sounds equal bilaterally. No accessory muscle use. GASTROINTESTINAL: Abdomen soft, non-tender, nondistended. EXTREMITIES: No cyanosis NEUROLOGICAL: awake and alert. normal speech. moving all extremities. 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 Started on induction systemic chemotherapy with idarubicin/cytarabine (3+7) on . Induction completed on 05/23/2017. (2) Neutropenic fever Status: Acute Plan: --levaquin stopped 05/27 --Blood cultures and urine cultures are negative to date. --remains afebrile. (3) Hyperbilirubinemia Status: Acute Plan: --combination of direct and indirect elevated. --unclear etiology --hepatitis panel is negative. (4) Respiratory insufficiency Status: Resolved Plan: --CXR, 05/23, shows improvement --pulmonology following --CT chest shows alveolar infiltrates. --on duonebs PRN --Lasix PRN (5) Atrial fibrillation Status: Acute Plan: --rate controlled on metoprolol Assessment 66y/o male with newly diagnosed AMML. Plan 1. AMML: D18 following initiation of idarubicin and cytarabine induction systemic therapy. Counts remain low and appeared to be following, it appears he is presently at the [place] or approaching this. Continue monitoring trend. 2. Cytopenias: Secondary to chemotherapy related myelosuppression, await count recovery. Continue supportive transfusions Once his counts are consistently improving I will obtain a bone marrow biopsy to assess for residual acute leukemia. 3. Febrile neutropenia: remains neutropenic. all cultures negative. Levofloxacin stopped on 05/27/2017. 4. Facial rash: Monitor, if it persists or worsens obtained biopsy to rule out leukemia cutis which tends to be more prevalent in AMML. 5. Hypotension: Decrease Lopressor to 25 mg by mouth every 8 hours. He does have A. fib and needs rate control. 6. Thrush noted along the buccal mucosa mostly on the left side, I started him on nystatin swish and swallow. 7. Saline nasal spray ordered for moisturization of the nasal mucosa to help decrease the amount of bleeding. Problem Qualifiers (1) Acute myelomonocytic leukemia: Qualified Code: C92.50 - Acute myelomonocytic leukemia not having achieved remission Dwain Diez MD May 31, 2017 08:32
[2017-05-31 08:35] LABS: NEUTROPHIL # MANUAL DIFF 0.1 TH/MM3 (1.8-7.7); PLATELET ESTIMATE SMEAR RARE (NORMAL); PLATELET MORPHOLOGY NORMAL (NORMAL); POLYS (SEG NEUTROPHILS) 17 % (16-70); SCAN/DIFF FINAL DIFF MANUAL; WBC DIFF SAMPLE 6
[2017-05-31] MEDS: SODIUM CHLORIDE 0.9% FLUSH 10 ML FLUSH IVF SCH (09:00)
[2017-05-31] MEDS: DOCUSATE SODIUM 50 MG/SENNA 8.6 MG TAB PO SCH ×2 (09:00→19:50)
[2017-05-31] MEDS: SODIUM CHLORIDE 0.9% FLUSH 10 ML FLUSH IV FLUSH SCH ×2 (09:00→19:51)
[2017-05-31] MEDS: ACETAMINOPHEN 325 MG TAB PO PRN (09:29)
[2017-05-31] MEDS: ATORVASTATIN 20 MG TAB PO SCH (09:29)
[2017-05-31] MEDS: diphenhydrAMINE HCL 25 MG CAP PO PRN (09:30)
[2017-05-31] MEDS: NYSTATIN SUSP 500,000 U/5 ML CUP SWISH-SWAL SCH ×4 (09:32→19:50)
[2017-05-31] MEDS: SODIUM CHLOR 0.9% 1000 ML INJ 1,000 ML IV SCH (14:21)
--- NOTE | 2017-05-31 15:39 | HHI.PR ---
Subjective Remarks Follow up for AML, neutropenia, thrombocytopenia. Patient seen and examined. Lying in bed comfortably. Tolerating PO intake, denies any abdominal pain, n/v. Denies any new acute complaints. Patient states that his nosebleeds have stopped. TMAX this am 101.7. Objective Vitals Vital Signs Date Time Temp Pulse Resp B/P Pulse Ox O2 Delivery O2 Flow Rate FiO2 05/31/17 12:00 98.5 78 20 98/60 98 05/31/17 09:59 97.2 89 16 118/57 100 05/31/17 09:41 97.2 99 16 99/59 100 05/31/17 09:29 Room Air 05/31/17 08:57 98.2 84 20 113/59 96 05/31/17 08:00 101.7 129 20 112/62 97 05/31/17 04:00 98.6 96 16 123/60 96 05/31/17 04:00 73 05/31/17 00:00 91 05/31/17 00:00 96.4 112 16 109/54 97 05/30/17 20:34 96 Room Air 05/30/17 20:00 84 05/30/17 18:10 98.1 88 20 101/61 96 05/30/17 17:00 96.6 83 18 121/74 100 05/30/17 16:40 85 99/64 05/30/17 16:00 86 05/30/17 15:28 98.2 88 18 103/66 98 I/O 05/30/17 05/30/17 05/30/17 05/31/17 05/31/17 05/31/17 07:00 15:00 23:00 07:00 15:00 23:00 Intake Total 490 ml 480 ml 1335 ml 490 ml Output Total 400 ml 275 ml 750 ml 850 ml Balance 90 ml 205 ml 585 ml -360 ml Intake Oral 250 ml 480 ml 250 ml 250 ml IV Total 240 ml 485 ml 240 ml Packed Cells 350 ml Platelets 250 ml Output Urine Total 400 ml 275 ml 750 ml 850 ml # Bowel Movements 0 0 Result Diagram: 05/31/17 0417 05/29/17 0423 Imaging Last Impressions Chest X-Ray 05/23/17 0000 Signed Impressions: Service Date/Time: Tuesday, May 23, 2017 11:16 - CONCLUSION: Interval improvement when compared to 2916. Ryan Hoover MD FACR Catheter Placement X-Ray 05/18/17 0000 Signed Impressions: Service Date/Time: Thursday, May 18, 2017 16:40 - CONCLUSION: Uncomplicated ultrasound and fluoroscopic guided dual lumen Jang catheter implantation as described. Emerson Carrasquillo MD Chest CT 05/17/17 0000 Signed Impressions: Service Date/Time: April 17:53 - CONCLUSION: 1. Bilateral alveolar infiltrates most characteristic of pulmonary edema. 2. Small to moderate bilateral pleural effusions. 3. Small amount of pericardial fluid. 4. Coronary artery calcifications. 5. Prominent left lobe of the thyroid with low attenuation nodular area. Braxton Tidwell MD Bone Biopsy CT 05/11/17 1309 Signed Impressions: Service Date/Time: Thursday, May 11, 2017 15:10 - CONCLUSION: 1. Uncomplicated CT guided bone marrow aspirate. 2. Uncomplicated CT guided bone marrow biopsy. Ryan Hoover MD FACR Soft Tissue Ultrasound 05/11/17 0000 Signed Impressions: Service Date/Time: Thursday, May 11, 2017 08:27 - CONCLUSION: Negative for abscess. Edematous changes in the soft tissues of the left axilla. Hank Nixon MD Objective Remarks GENERAL: Well-developed male patient, lying in bed comfortably in no acute distress. SKIN: Warm and dry. HEAD: Normocephalic. EYES: No injection or drainage. PERRL. NECK: Supple, trachea midline. No JVD. CARDIOVASCULAR: Regular rate and rhythm. No murmur appreciated. RESPIRATORY: Expiratory wheezing noted in anterior and posterior lower lung jarvis. GASTROINTESTINAL: Abdomen soft, non-tender, nondistended. Bowel sounds active x 4. EXTREMITIES: No cyanosis, clubbing. NEUROLOGICAL: No obvious focal deficit. Awake, alert, and oriented x3. Speech clear. Procedures Echo 05/14/2017 CONCLUSIONS The left ventricular systolic function is normal with an estimated ejection fraction in the range of 55-60%. Wall thickness is measured at the upper limits of normal. The right ventricle is mildly dilated. Mild mitral valve regurgitation. There is trace tricuspid valve regurgitation. A/P Problem List: (1) Pancytopenia ICD Code: D61.818 Status: Acute (2) Macrocytic anemia ICD Code: D53.9 Status: Acute (3) Alcohol abuse ICD Code: F10.10 Status: Acute (4) S/P tympanic tube insertion ICD Code: Z96.22 Status: Acute Assessment and Plan Mr. Gutiérrez is a 66 y/o male with a history of HTN, HLD, AFIB and arthritis presented to the ED with complaints of dizziness and weakness. A recent blood work by PCP showed rapid decline in his H&H which prompted patient to seek medical attention. Due to pancytopenia, hematology/oncology was consulted. Acute myelomonocytic anemia - Medical oncology following. Remains pancytopenic. - S/p bone marrow biopsy. Pathology revealed acute myelomonocytic leukemia. - Induction chemotherapy completed 05/23/2017. - Labs reviewed today - WBC 0.3, PLT 22, Hgb 7.2. - Status post platelet and PRBC infusion. Acute respiratory failure Pleural effusion Probable pneumonia Left axillary cellulitis - ID discontinued Vancomycin. - CXR showed improvement with minimal airspace disease. - CXR shows improvement. Was on Levaquin, stopped on 05/27/2017. Patient remains afebrile. Hypertension - BP is on the lower side - around 100 systolic. Hyperlipidemia - Continue atorvastatin 20 mg daily at bedtime - Hold Amlodipine and Lisinopril for now. Atrial fibrillation - Reduced metoprolol 25 mg PO Q8hrs. No anticoagulant medications at this point. Full code. SCDs. Letty Monroe May 31, 2017 15:38
--- NOTE | 2017-05-31 17:40 | HHI.PR ---
Subjective Remarks 66 YOWM with ac Monomyelocytik leuk, bilat infilt No hemoptysis no Fever Feels better Objective Vital Signs Vital Signs Date Time Temp Pulse Resp B/P Pulse Ox O2 Delivery O2 Flow Rate FiO2 05/31/17 16:45 96.8 77 21 116/64 98 05/31/17 16:03 75 05/31/17 12:24 81 05/31/17 12:00 98.5 78 20 98/60 98 05/31/17 09:59 97.2 89 16 118/57 100 05/31/17 09:41 97.2 99 16 99/59 100 05/31/17 09:29 Room Air 05/31/17 08:57 98.2 84 20 113/59 96 05/31/17 08:17 82 05/31/17 08:00 101.7 129 20 112/62 97 05/31/17 04:00 98.6 96 16 123/60 96 05/31/17 04:00 73 05/31/17 00:00 91 05/31/17 00:00 96.4 112 16 109/54 97 05/30/17 20:34 96 Room Air 05/30/17 20:00 84 05/30/17 18:10 98.1 88 20 101/61 96 I/O 05/30/17 05/30/17 05/30/17 05/31/17 05/31/17 05/31/17 07:00 15:00 23:00 07:00 15:00 23:00 Intake Total 490 ml 480 ml 1335 ml 490 ml 935 ml Output Total 400 ml 275 ml 750 ml 850 ml Balance 90 ml 205 ml 585 ml -360 ml 935 ml Intake Oral 250 ml 480 ml 250 ml 250 ml 360 ml IV Total 240 ml 485 ml 240 ml 200 ml Packed Cells 350 ml 375 ml Platelets 250 ml Output Urine Total 400 ml 275 ml 750 ml 850 ml # Voids 1 # Bowel Movements 0 0 2 Result Diagram: 05/31/17 0417 05/29/17 0423 Objective Remarks GENERAL: WMWN WM, NAD SKIN: Warm and dry. HEAD: Normocephalic. EYES: No scleral icterus. No injection or drainage. NECK: Supple, trachea midline. No JVD or lymphadenopathy. CARDIOVASCULAR: Regular rate and rhythm without murmurs, gallops, or rubs. RESPIRATORY: Breath sounds equal bilaterally. No accessory muscle use. GASTROINTESTINAL: Abdomen soft, non-tender, nondistended. MUSCULOSKELETAL: No cyanosis, or edema. BACK: Nontender without obvious deformity. No CVA tenderness. A/P Assessment and Plan Bilat Infilt Pleural effusion mild Hemoptysis Ac Monomyelocytic Leukemia Pancytopenia PLAN" Cont Abx per ID monitor pl fluid Supplement 02 Monitor CBC Stable from pulm standpoint Donald Mayo MD May 31, 2017 17:40
[2017-06-01] VITALS (10 sets, daily range): BP systolic 100–127; BP diastolic 58–78; PULSE 71–108; RESP 16–20; TEMP 97.2–99.6; O2SAT 94–99
[2017-06-01] MEDS: METOPROLOL TARTRATE 25 MG TAB PO SCH ×3 (01:03→17:35)
[2017-06-01] MEDS: SODIUM CHLOR 0.9% 1000 ML INJ 1,000 ML IV SCH (05:31)
[2017-06-01] MEDS: INSULIN ASPART SUPPLEMENTAL SCALE SQ SCH ×2 (07:00→16:00)
[2017-06-01] MEDS: SODIUM CHLORIDE 0.9% FLUSH 10 ML FLUSH IVF SCH (09:00)
[2017-06-01] MEDS: SODIUM CHLORIDE 0.9% FLUSH 10 ML FLUSH IV FLUSH SCH ×2 (09:00→20:04)
[2017-06-01] MEDS: DOCUSATE SODIUM 50 MG/SENNA 8.6 MG TAB PO SCH ×2 (09:00→20:04)
[2017-06-01] MEDS: NYSTATIN SUSP 500,000 U/5 ML CUP SWISH-SWAL SCH ×4 (09:35→20:04)
[2017-06-01] MEDS: ATORVASTATIN 20 MG TAB PO SCH (09:35)
[2017-06-01 11:00] LABS: HEMATOCRIT 22.3 % (39.0-51.0); MEAN CELL VOLUME 83.8 FL (80.0-100.0); MEAN CORPUSCULAR HEMOGLOBIN 28.8 PG (27.0-34.0); MEAN CORPUSCULAR HGB CONC 34.4 % (32.0-36.0); RED BLOOD COUNT 2.67 MIL/MM3 (4.50-5.90); RED CELL DISTRIBUTION WIDTH 16.1 % (11.6-17.2); WHITE BLOOD COUNT 0.3 TH/MM3 (4.0-11.0)
[2017-06-01 11:04] LABS: HEMO FLAGS AUTO DIFF
--- NOTE | 2017-06-01 11:05 | PD.ONC.PN ---
Subjective Subjective Remarks Patient seen and examined, he reports his nose bleeding is improved, continues to have dryness of the nose. He generally feels fatigued, reports having chills denies night sweats denies fevers. There was a temperature recorded of 101.7F at 8 AM on 05/31/2017, per the charge nurse and nurse on yesterday this was an error entry and they are working on removing this from the chart. The patient did not have a measured fever over the past 24 hours. Objective Data Date Time Temp Pulse Resp B/P Pulse Ox O2 Delivery O2 Flow Rate FiO2 06/01/17 09:08 Room Air 06/01/17 08:48 97.2 74 20 116/77 94 06/01/17 04:00 99.2 108 16 127/67 96 06/01/17 00:00 98.3 82 16 100/58 99 05/31/17 21:00 79 05/31/17 21:00 98 Room Air 21 05/31/17 20:00 98.4 84 16 116/84 98 05/31/17 16:45 96.8 77 21 116/64 98 05/31/17 16:03 75 05/31/17 12:24 81 05/31/17 12:00 98.5 78 20 98/60 98 06/01/17 06/01/17 06/01/17 07:00 15:00 23:00 Intake Total 522 ml Output Total 1300 ml Balance -778 ml Result Diagram: 05/31/17 0417 05/29/17 0423 Administered Medications Medications (Trade) Dose Ordered Sig/Maritza Route PRN Reason Start Time Stop Time Status Last Admin Dose Admin Sodium Chloride (NS Flush) 2 ml UNSCH PRN IV FLUSH FLUSH AFTER USING IV ACCESS 05/10/17 15:00 05/15/17 03:47 Sodium Chloride (NS Flush) 2 ml BID IV FLUSH 05/10/17 21:00 05/31/17 19:51 Acetaminophen (Tylenol) 650 mg Q4H PRN PO TEMP > 100.4 OR PREMEDICATION FOR BLOOD PRODUCT 05/10/17 15:00 05/31/17 09:29 Ondansetron HCl (Zofran Inj) 4 mg Q6H PRN IVP NAUSEA OR VOMITING 05/10/17 15:00 05/23/17 22:50 Senna/Docusate Sodium (Cinthia-Colace) 1 tab BID PO 05/10/17 21:00 05/20/17 08:18 Amlodipine Besylate (Norvasc) 5 mg DAILY PO 05/11/17 09:00 Hold 05/14/17 10:17 Atorvastatin Calcium (Lipitor) 20 mg DAILY PO 05/11/17 09:00 06/01/17 09:35 Lisinopril (Prinivil) 20 mg DAILY PO 05/11/17 09:00 Hold 05/26/17 09:43 Oxycodone HCl 5 mg 5 mg Q4H PRN PO PAIN SCALE 3 TO 5 05/11/17 12:00 05/12/17 01:23 Sodium Chloride (NS 1000 ml Inj) 1,000 ml @ 30 mls/hr Q24H IV 05/15/17 12:00 06/01/17 05:31 Diphenhydramine HCl (Benadryl) 25 mg Q4H PRN PO PRE-MEDICATE FOR BLOOD PRODUCT 05/15/17 15:30 05/31/17 09:30 Sodium Chloride (NS Flush) DAILY IVF 05/19/17 09:00 05/26/17 09:56 Heparin Sodium (Porcine) (Heparin Central Flush) DAILY IV FLUSH 05/19/17 09:00 05/25/17 09:38 Metoprolol Tartrate (Lopressor) 25 mg Q8H PO 05/29/17 17:00 06/01/17 09:35 Nystatin (Mycostatin Liq) 5 ml QID SWISH-SWAL 05/31/17 09:00 06/01/17 09:35 Objective Remarks GENERAL: Pleasant male, upright in bed in nad SKIN: Warm and dry. souza catheter on the right side, chest wall, c/d/i; IV, left hand without bleeding. HEAD: Normocephalic. EYES: No injection or drainage. Nose: Dried blood in the nares bilaterally. No active bleeding noted. NECK: Supple, trachea midline. CARDIOVASCULAR: +S1/S2, no obvious murmurs or gallops. RESPIRATORY: Breath sounds equal bilaterally. No accessory muscle use. GASTROINTESTINAL: Abdomen soft, non-tender, nondistended. EXTREMITIES: No cyanosis NEUROLOGICAL: awake and alert. normal speech. moving all extremities. 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 Started on induction systemic chemotherapy with idarubicin/cytarabine (3+7) on . Induction completed on 05/23/2017. (2) Neutropenic fever Status: Acute Plan: --levaquin stopped 05/27 --Blood cultures and urine cultures are negative to date. --remains afebrile. (3) Hyperbilirubinemia Status: Acute Plan: --combination of direct and indirect elevated. --unclear etiology --hepatitis panel is negative. (4) Respiratory insufficiency Status: Resolved Plan: --CXR, 05/23, shows improvement --pulmonology following --CT chest shows alveolar infiltrates. --on duonebs PRN --Lasix PRN (5) Atrial fibrillation Status: Acute Plan: --rate controlled on metoprolol Assessment 66y/o male with newly diagnosed AMML. Plan 1. AMML: D19 following initiation of idarubicin and cytarabine induction systemic therapy. Counts remain low and appeared to be following, it appears he is presently at the [place] or approaching this. Continue monitoring trend. 2. Cytopenias: Secondary to chemotherapy related myelosuppression, await count recovery. Continue supportive transfusions Once his counts are consistently improving I will obtain a bone marrow biopsy to assess for residual acute leukemia. 3. Febrile neutropenia: remains neutropenic. all cultures negative. Levofloxacin stopped on 05/27/2017. 4. Facial rash: Monitor, if it persists or worsens obtained biopsy to rule out leukemia cutis which tends to be more prevalent in AMML. 5. Hypotension: Decrease Lopressor to 25 mg by mouth every 8 hours. He does have A. fib and needs rate control. 6. Thrush noted along the buccal mucosa mostly on the left side, I started him on nystatin swish and swallow. 7. Saline nasal spray ordered for moisturization of the nasal mucosa to help decrease the amount of bleeding. Disposition: Clinically stable. Plan for a CT-guided bone marrow biopsy early next week to assess for residual leukemia. No count recovery at this time. Problem Qualifiers (1) Acute myelomonocytic leukemia: Qualified Code: C92.50 - Acute myelomonocytic leukemia not having achieved remission Dwain Diez MD Jun 01, 2017 11:05
[2017-06-01 11:08] LABS: PLATELET COUNT 16 TH/MM3 (150-450)
[2017-06-01 11:22] LABS: ANION GAP 8 MEQ/L (5-15); AST (GOT) 6 U/L (15-37); BLOOD UREA NITROGEN 17 MG/DL (7-18); CHLORIDE 104 MEQ/L (98-107); GLOMERULAR FILTRATION RATE 153 ML/MIN (>89); MAGNESIUM 1.8 MG/DL (1.5-2.5); POTASSIUM 3.8 MEQ/L (3.5-5.1); SODIUM (NA) 136 MEQ/L (136-145)
[2017-06-01 11:27] LABS: ALKALINE PHOSPHATASE 79 U/L (45-117); ALT (GPT) 15 U/L (12-78); TOTAL BILIRUBIN ADULT 1.5 MG/DL (0.2-1.0)
--- NOTE | 2017-06-01 12:50 | HHI.PR ---
Subjective Remarks Follow-up for AML Afebrile, no shortness of breath, diarrhea or urinary symptoms. Stable. Good appetite. Objective Vitals Vital Signs Date Time Temp Pulse Resp B/P Pulse Ox O2 Delivery O2 Flow Rate FiO2 06/01/17 09:08 Room Air 06/01/17 08:48 97.2 74 20 116/77 94 06/01/17 04:00 99.2 108 16 127/67 96 06/01/17 00:00 98.3 82 16 100/58 99 05/31/17 21:00 79 05/31/17 21:00 98 Room Air 21 05/31/17 20:00 98.4 84 16 116/84 98 05/31/17 16:45 96.8 77 21 116/64 98 05/31/17 16:03 75 I/O 05/31/17 05/31/17 05/31/17 06/01/17 06/01/17 06/01/17 06:59 14:59 22:59 06:59 14:59 22:59 Intake Total 490 ml 935 ml 488 ml 522 ml Output Total 850 ml 750 ml 1300 ml Balance -360 ml 935 ml -262 ml -778 ml Intake Oral 250 ml 360 ml 250 ml 300 ml IV Total 240 ml 200 ml 238 ml 222 ml Packed Cells 375 ml Output Urine Total 850 ml 750 ml 1300 ml # Voids 1 # Bowel Movements 0 2 0 1 Result Diagram: 06/01/1752806/01/17528 Objective Remarks GENERAL: Not in distress. NECK: Trachea midline. CARDIOVASCULAR: Irregularly irregular. RESPIRATORY: Clear to auscultation. Breath sounds equal bilaterally. GASTROINTESTINAL: Abdomen soft, non-tender, nondistended. No palpable masses. No guarding. MUSCULOSKELETAL: Extremities without edema. No joint tenderness, effusion, or edema noted. NEUROLOGICAL: Awake and alert. Cranial nerves II through XII intact. Motor and sensory grossly within normal limits. Normal speech. Hard of hearing, reads lips. Procedures Echo 05/14/2017 CONCLUSIONS The left ventricular systolic function is normal with an estimated ejection fraction in the range of 55-60%. Wall thickness is measured at the upper limits of normal. The right ventricle is mildly dilated. Mild mitral valve regurgitation. There is trace tricuspid valve regurgitation. A/P Problem List: (1) Pancytopenia ICD Code: D61.818 Status: Acute (2) Macrocytic anemia ICD Code: D53.9 Status: Acute (3) Alcohol abuse ICD Code: F10.10 Status: Acute (4) S/P tympanic tube insertion ICD Code: Z96.22 Status: Acute Assessment and Plan Mr. Gutiérrez is a 66 y/o male with a history of HTN, HLD, AFIB and arthritis presented to the ED with complaints of dizziness and weakness. A recent blood work by PCP showed rapid decline in his H&H which prompted patient to seek medical attention. Due to pancytopenia, hematology/oncology was consulted. Acute myelomonocytic anemia - Medical oncology following. Remains pancytopenic. - S/p bone marrow biopsy. Pathology revealed acute myelomonocytic leukemia. - Induction chemotherapy completed 05/23/2017. -No need for transfusion today Acute respiratory failure Pleural effusion Probable pneumonia Left axillary cellulitis - ID discontinued Vancomycin. - CXR showed improvement with minimal airspace disease. - CXR shows improvement. Was on Levaquin, stopped on 05/27/2017. Patient remains afebrile. Hypertension Hyperlipidemia - Continue atorvastatin 20 mg and metoprolol - Hold Amlodipine and Lisinopril for now. Atrial fibrillation -continue metoprolol Dysphagia-on Nystatin per oncology Full code. SCDs. Discharge Planning Once cleared by hematology, likely with home health care Lisa Kidd MD Jun 01, 2017 12:50
[2017-06-01 13:08] LABS: PLATELET ESTIMATE SMEAR RARE (NORMAL); PLATELET MORPHOLOGY NORMAL (NORMAL); POLYS (SEG NEUTROPHILS) 1 % (16-70); SCAN/DIFF FINAL DIFF MANUAL; WBC DIFF SAMPLE 100
--- NOTE | 2017-06-01 18:54 | HHI.PR ---
Subjective Remarks 66 YOWM with ac Monomyelocytik leuk, bilat infilt No hemoptysis no Fever Feels better Does't like hospital food Objective Vital Signs Vital Signs Date Time Temp Pulse Resp B/P Pulse Ox O2 Delivery O2 Flow Rate FiO2 06/01/17 16:54 99.6 99 20 117/78 98 06/01/17 15:27 71 06/01/17 12:31 86 06/01/17 12:00 98.1 88 20 110/67 96 06/01/17 09:08 Room Air 06/01/17 08:48 97.2 74 20 116/77 94 06/01/17 08:24 83 06/01/17 04:00 99.2 108 16 127/67 96 06/01/17 00:00 98.3 82 16 100/58 99 05/31/17 21:00 79 05/31/17 21:00 98 Room Air 21 05/31/17 20:00 98.4 84 16 116/84 98 I/O 05/31/17 05/31/17 05/31/17 06/01/17 06/01/17 06/01/17 06:59 14:59 22:59 06:59 14:59 22:59 Intake Total 490 ml 935 ml 488 ml 522 ml 780 ml Output Total 850 ml 750 ml 1300 ml Balance -360 ml 935 ml -262 ml -778 ml 780 ml Intake Oral 250 ml 360 ml 250 ml 300 ml 600 ml IV Total 240 ml 200 ml 238 ml 222 ml 180 ml Packed Cells 375 ml Output Urine Total 850 ml 750 ml 1300 ml # Voids 1 3 # Bowel Movements 0 2 0 1 2 Result Diagram: 06/01/1752806/01/17528 Objective Remarks GENERAL: WMWN WM, NAD SKIN: Warm and dry. HEAD: Normocephalic. EYES: No scleral icterus. No injection or drainage. NECK: Supple, trachea midline. No JVD or lymphadenopathy. CARDIOVASCULAR: Regular rate and rhythm without murmurs, gallops, or rubs. RESPIRATORY: Breath sounds equal bilaterally. No accessory muscle use. GASTROINTESTINAL: Abdomen soft, non-tender, nondistended. MUSCULOSKELETAL: No cyanosis, or edema. BACK: Nontender without obvious deformity. No CVA tenderness. A/P Assessment and Plan Bilat Infilt Pleural effusion mild Hemoptysis Ac Monomyelocytic Leukemia Pancytopenia PLAN" Cont Abx per ID monitor pl fluid Supplement 02 Monitor CBC Stable from pulm standpoint Available prn over weekend. Donald Mayo MD Jun 01, 2017 18:54
[2017-06-02] VITALS (10 sets, daily range): BP systolic 102–129; BP diastolic 57–80; PULSE 73–96; RESP 16–20; TEMP 96.6–99.5; O2SAT 95–99
[2017-06-02] MEDS: METOPROLOL TARTRATE 25 MG TAB PO SCH ×3 (01:07→17:28)
[2017-06-02] MEDS: INSULIN ASPART SUPPLEMENTAL SCALE SQ SCH ×2 (04:16→15:59)
[2017-06-02 04:52] LABS: HEMATOCRIT 21.5 % (39.0-51.0); MEAN CELL VOLUME 83.8 FL (80.0-100.0); MEAN CORPUSCULAR HEMOGLOBIN 29.7 PG (27.0-34.0); MEAN CORPUSCULAR HGB CONC 35.4 % (32.0-36.0); RED BLOOD COUNT 2.57 MIL/MM3 (4.50-5.90); RED CELL DISTRIBUTION WIDTH 15.8 % (11.6-17.2); WHITE BLOOD COUNT 0.3 TH/MM3 (4.0-11.0)
[2017-06-02 05:02] LABS: HEMO FLAGS AUTO DIFF
[2017-06-02 05:04] LABS: PLATELET COUNT 12 TH/MM3 (150-450)
[2017-06-02] MEDS ORDERED: SODIUM CHLOR 0.9% 250 ML INJ 250 ML IV ONE (07:15)
[2017-06-02] MEDS ORDERED: ACETAMINOPHEN 325 MG TAB PO PRN (07:15)
[2017-06-02 07:33] LABS: PLATELET ESTIMATE SMEAR RARE (NORMAL); WBC DIFF SAMPLE 25
[2017-06-02 07:34] LABS: PLATELET MORPHOLOGY NORMAL (NORMAL); SCAN/DIFF FINAL DIFF MANUAL
--- NOTE | 2017-06-02 08:42 | PD.ONC.PN ---
Subjective Subjective Remarks Tmax 99.5 overnight. Patient is concerned about a lump on left wrist. He states he noticed this after an IV was removed. He denies any bleeding or easy bruising. Did not sleep well last night Objective Data Date Time Temp Pulse Resp B/P Pulse Ox O2 Delivery O2 Flow Rate FiO2 06/02/17 04:00 98.6 88 18 121/72 98 06/02/17 00:00 99.5 90 19 107/80 97 06/01/17 21:00 97 Room Air 21 06/01/17 21:00 81 06/01/17 20:00 98.7 80 18 116/73 97 06/01/17 16:54 99.6 99 20 117/78 98 06/01/17 15:27 71 06/01/17 12:31 86 06/01/17 12:00 98.1 88 20 110/67 96 06/01/17 09:08 Room Air 06/01/17 08:48 97.2 74 20 116/77 94 06/02/17 06/02/17 06/02/17 06:59 14:59 22:59 Intake Total 857 ml Output Total 750 ml Balance 107 ml Result Diagram: 06/02/17 0414 06/01/17 0529 Laboratory Results Laboratory Tests Test 06/02/17 04:14 White Blood Count 0.3 TH/MM3 Red Blood Count 2.57 MIL/MM3 Hemoglobin 7.6 GM/DL Hematocrit 21.5 % Mean Corpuscular Volume 83.8 FL Mean Corpuscular Hemoglobin 29.7 PG Mean Corpuscular Hemoglobin 35.4 % Concent Red Cell Distribution Width 15.8 % Platelet Count 12 TH/MM3 Mean Platelet Volume 7.3 FL Neutrophils (%) (Auto) % Lymphocytes (%) (Auto) % Monocytes (%) (Auto) % Eosinophils (%) (Auto) % Basophils (%) (Auto) % Neutrophils # (Auto) TH/MM3 Lymphocytes # (Auto) TH/MM3 Monocytes # (Auto) TH/MM3 Eosinophils # (Auto) TH/MM3 Basophils # (Auto) TH/MM3 CBC Comment AUTO DIFF Differential Total Cells 25 Counted Lymphocytes % 100 % Neutrophils # (Manual) 0.0 TH/MM3 Differential Comment FINAL DIFF MANUAL Platelet Estimate RARE Platelet Morphology Comment NORMAL Administered Medications Medications (Trade) Dose Ordered Sig/Maritza Route PRN Reason Start Time Stop Time Status Last Admin Dose Admin Sodium Chloride (NS Flush) 2 ml UNSCH PRN IV FLUSH FLUSH AFTER USING IV ACCESS 05/10/17 15:00 05/15/17 03:47 Sodium Chloride (NS Flush) 2 ml BID IV FLUSH 05/10/17 21:00 05/31/17 19:51 Acetaminophen (Tylenol) 650 mg Q4H PRN PO TEMP > 100.4 OR PREMEDICATION FOR BLOOD PRODUCT 05/10/17 15:00 05/31/17 09:29 Ondansetron HCl (Zofran Inj) 4 mg Q6H PRN IVP NAUSEA OR VOMITING 05/10/17 15:00 05/23/17 22:50 Senna/Docusate Sodium (Cinthia-Colace) 1 tab BID PO 05/10/17 21:00 05/20/17 08:18 Amlodipine Besylate (Norvasc) 5 mg DAILY PO 05/11/17 09:00 Hold 05/14/17 10:17 Atorvastatin Calcium (Lipitor) 20 mg DAILY PO 05/11/17 09:00 06/01/17 09:35 Lisinopril (Prinivil) 20 mg DAILY PO 05/11/17 09:00 Hold 05/26/17 09:43 Oxycodone HCl 5 mg 5 mg Q4H PRN PO PAIN SCALE 3 TO 5 05/11/17 12:00 05/12/17 01:23 Sodium Chloride (NS 1000 ml Inj) 1,000 ml @ 30 mls/hr Q24H IV 05/15/17 12:00 06/01/17 05:31 Diphenhydramine HCl (Benadryl) 25 mg Q4H PRN PO PRE-MEDICATE FOR BLOOD PRODUCT 05/15/17 15:30 05/31/17 09:30 Sodium Chloride (NS Flush) DAILY IVF 05/19/17 09:00 05/26/17 09:56 Heparin Sodium (Porcine) (Heparin Central Flush) DAILY IV FLUSH 05/19/17 09:00 05/25/17 09:38 Metoprolol Tartrate (Lopressor) 25 mg Q8H PO 05/29/17 17:00 06/02/17 01:07 Nystatin (Mycostatin Liq) 5 ml QID SWISH-SWAL 05/31/17 09:00 06/01/17 20:04 Objective Remarks GENERAL: Pleasant male, upright in bed in nad SKIN: Warm and dry. Jang catheter on the right chest wall. Asymptomatic. HEAD: Normocephalic. EYES: No injection or drainage. NECK: Supple, trachea midline. CARDIOVASCULAR: +S1/S2. No murmur appreciated RESPIRATORY: Breath sounds equal bilaterally. No accessory muscle use. GASTROINTESTINAL: Abdomen round,soft. Non-tender, nondistended. EXTREMITIES: No cyanosis. Left wrist with erythematous cyst. Bilateral lower extremities no edema NEUROLOGICAL: Awake and alert. Normal speech. Moving all extremities. 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 Started on induction systemic chemotherapy with idarubicin/cytarabine (3+7) on . Induction completed on 05/23/2017. (2) Neutropenic fever Status: Acute Plan: --levaquin stopped 05/27 --Blood cultures and urine cultures are negative to date. --remains afebrile. (3) Hyperbilirubinemia Status: Acute Plan: --combination of direct and indirect elevated. --unclear etiology --hepatitis panel is negative. (4) Respiratory insufficiency Status: Resolved Plan: --CXR, 05/23, shows improvement --pulmonology following --CT chest shows alveolar infiltrates. --on duonebs PRN --Lasix PRN (5) Atrial fibrillation Status: Acute Plan: --rate controlled on metoprolol Assessment 66y/o male with newly diagnosed AMML. Plan 1. D20 following initiation of idarubicin and cytarabine induction systemic therapy. Continue monitoring trend of blood counts. 2. Once his counts are consistently improving, will obtain a bone marrow biopsy to assess for residual acute leukemia. 3. Obtain ultrasound of soft tissue left wrist. Cultures negative. Levofloxacin stopped on 05/27/2017. 6. Thrush improving. Continue nystatin Attending Statement The exam, history, and the medical decision-making described in the above note were completed with the assistance of the mid-level provider. I reviewed and agree with the findings presented. I attest that I had a [id number] encounter with the patient on the same day, and personally performed and documented my assessment and findings in the medical record. low grade fever--start gram negative coverage with iv cefepime repeat blood cultures in am left arm u/s for swelling--. thrombophlebitis only , no thrombus---apply warm compresses Transfuse 1 unit of platelets d/w rn Problem Qualifiers (1) Acute myelomonocytic leukemia: Qualified Code: C92.50 - Acute myelomonocytic leukemia not having achieved remission Patience Renner Jun 02, 2017 08:42 Raphael Katz MD Jun 03, 2017 00:19
[2017-06-02] MEDS: DOCUSATE SODIUM 50 MG/SENNA 8.6 MG TAB PO SCH ×2 (09:00→21:00)
[2017-06-02] MEDS: NYSTATIN SUSP 500,000 U/5 ML CUP SWISH-SWAL SCH ×4 (09:58→21:00)
[2017-06-02] MEDS: SODIUM CHLORIDE 0.9% FLUSH 10 ML FLUSH IV FLUSH SCH ×2 (09:59→21:00)
[2017-06-02] MEDS: SODIUM CHLORIDE 0.9% FLUSH 10 ML FLUSH IVF SCH (09:59)
[2017-06-02] MEDS: ATORVASTATIN 20 MG TAB PO SCH (09:59)
[2017-06-02] MEDS: ACETAMINOPHEN 325 MG TAB PO PRN (12:23)
--- NOTE | 2017-06-02 15:39 | HHI.PR ---
Subjective Remarks Follow-up for pancytopenia WBC 70.3, no bleeding, mild swelling left wrist, dorsal aspect, positive for pain. Afebrile. Platelets 12 Objective Vitals Vital Signs Date Time Temp Pulse Resp B/P Pulse Ox O2 Delivery O2 Flow Rate FiO2 06/02/17 13:55 98.6 82 16 103/57 97 06/02/17 12:00 86 06/02/17 11:58 98.5 96 20 129/72 99 06/02/17 09:59 95 Room Air 21 06/02/17 08:35 80 06/02/17 07:30 97.9 95 20 126/76 95 06/02/17 04:00 98.6 88 18 121/72 98 06/02/17 00:00 99.5 90 19 107/80 97 06/01/17 21:00 97 Room Air 21 06/01/17 21:00 81 06/01/17 20:00 98.7 80 18 116/73 97 06/01/17 16:54 99.6 99 20 117/78 98 I/O 06/01/17 06/01/17 06/01/17 06/02/17 06/02/17 06/02/17 07:00 15:00 23:00 07:00 15:00 23:00 Intake Total 522 ml 780 ml 480 ml 857 ml 353 ml Output Total 1300 ml 150 ml 750 ml 150 ml Balance -778 ml 780 ml 330 ml 107 ml 203 ml Intake Oral 300 ml 600 ml 480 ml 240 ml IV Total 222 ml 180 ml 617 ml 353 ml Output Urine Total 1300 ml 150 ml 750 ml 150 ml # Voids 3 # Bowel Movements 1 2 1 Result Diagram: 06/02/17 0414 06/01/17 0529 Objective Remarks GENERAL: Not in distress. NECK: Trachea midline. CARDIOVASCULAR: Irregularly irregular. RESPIRATORY: Clear to auscultation. Breath sounds equal bilaterally. GASTROINTESTINAL: Abdomen soft, non-tender, nondistended. No palpable masses. No guarding. MUSCULOSKELETAL: Extremities without edema. No joint tenderness, effusion, or edema noted. Left wrist, dorsal aspect, swollen, mildly tender, no bleeding. Hyperpigmentation present. NEUROLOGICAL: Awake and alert. Cranial nerves II through XII intact. Motor and sensory grossly within normal limits. Normal speech. Hard of hearing, reads lips. Procedures Echo 05/14/2017 CONCLUSIONS The left ventricular systolic function is normal with an estimated ejection fraction in the range of 55-60%. Wall thickness is measured at the upper limits of normal. The right ventricle is mildly dilated. Mild mitral valve regurgitation. There is trace tricuspid valve regurgitation. A/P Problem List: (1) Pancytopenia ICD Code: D61.818 Status: Acute (2) Macrocytic anemia ICD Code: D53.9 Status: Acute (3) Alcohol abuse ICD Code: F10.10 Status: Acute (4) S/P tympanic tube insertion ICD Code: Z96.22 Status: Acute Assessment and Plan Mr. Gutiérrez is a 66 y/o male with a history of HTN, HLD, AFIB and arthritis presented to the ED with complaints of dizziness and weakness. A recent blood work by PCP showed rapid decline in his H&H which prompted patient to seek medical attention. Due to pancytopenia, hematology/oncology was consulted. Acute myelomonocytic anemia - Medical oncology following. Remains pancytopenic. - S/p bone marrow biopsy. Pathology revealed acute myelomonocytic leukemia. - Induction chemotherapy completed 05/23/2017. Platelet transfusion today. Cefepime started per oncology. Left wrist swelling-doubt infection, agree with ultrasound, monitor. Acute respiratory failure Pleural effusion Probable pneumonia Left axillary cellulitis - ID discontinued Vancomycin. - CXR showed improvement with minimal airspace disease. - CXR shows improvement. Was on Levaquin, stopped on 05/27/2017. Patient remains afebrile. Cefepime started. Hypertension Hyperlipidemia - Continue atorvastatin 20 mg and metoprolol - Hold Amlodipine and Lisinopril for now. Atrial fibrillation -continue metoprolol Dysphagia-on Nystatin per oncology Full code. SCDs. Discharge Planning Once cleared by hematology, likely with home health care Lisa Kidd MD Jun 02, 2017 15:39
--- NOTE | 2017-06-02 16:31 | RADRPT ---
EXAM DATE/TIME: 06/02/2017 15:46 [facility] COMPARISON: No previous studies available for comparison. INDICATIONS : Left arm swelling. MEDICAL HISTORY : Hypertension. Hypercholesterolemia. Hearing loss. Afib. Hyperlipidemia. Arthritis. SURGICAL HISTORY : Tonsillectomy. Hernia repair. Left knee surgery. ENCOUNTER: Initial ACUITY: 1 day PAIN SCORE: 1/10 LOCATION: Left arm. AREA EVALUATED: Left arm posterior wrist area. FINDINGS: Examination of the dorsum of the patient's wrist demonstrates a thrombosed superficial vein without e vidence for fluid collections. CONCLUSION: Thrombophlebitis. Virginia Denney MD on June 02, 2017 at 16:28 Board Certified Radiologist. This report was verified electronically.
[2017-06-02] MEDS: CEFEPIME INJ 2,000 MG in SODIUM CHLORIDE 0.9% INJ 100 ML IV SCH (17:28)
[2017-06-02] MEDS: SODIUM CHLOR 0.9% 1000 ML INJ 1,000 ML IV SCH (22:13)
[2017-06-03] VITALS (10 sets, daily range): BP systolic 107–122; BP diastolic 64–77; PULSE 82–106; RESP 18–20; TEMP 95.1–99.1; O2SAT 93–98
[2017-06-03] MEDS: CEFEPIME INJ 2,000 MG in SODIUM CHLORIDE 0.9% INJ 100 ML IV SCH ×2 (01:11→13:58)
[2017-06-03] MEDS: METOPROLOL TARTRATE 25 MG TAB PO SCH ×3 (01:11→17:17)
[2017-06-03] MEDS: SODIUM CHLOR 0.9% 1000 ML INJ 1,000 ML IV SCH (04:00)
[2017-06-03] MEDS: INSULIN ASPART SUPPLEMENTAL SCALE SQ SCH ×2 (06:09→17:19)
[2017-06-03 07:38] LABS: MEAN CELL VOLUME 83.4 FL (80.0-100.0); MEAN CORPUSCULAR HEMOGLOBIN 29.5 PG (27.0-34.0); MEAN CORPUSCULAR HGB CONC 35.4 % (32.0-36.0); PLATELET COUNT 22 TH/MM3 (150-450); RED BLOOD COUNT 2.46 MIL/MM3 (4.50-5.90); RED CELL DISTRIBUTION WIDTH 15.7 % (11.6-17.2); WHITE BLOOD COUNT 0.2 TH/MM3 (4.0-11.0)
[2017-06-03 07:47] LABS: HEMO FLAGS AUTO DIFF
[2017-06-03 07:53] LABS: HEMATOCRIT 20.5 % (39.0-51.0)
[2017-06-03 08:01] LABS: ALT (GPT) 16 U/L (12-78); ANION GAP 9 MEQ/L (5-15); AST (GOT) 8 U/L (15-37); BICARBONATE 24.4 MEQ/L (21.0-32.0); BLOOD UREA NITROGEN 17 MG/DL (7-18); CHLORIDE 102 MEQ/L (98-107); GLOMERULAR FILTRATION RATE 141 ML/MIN (>89); SODIUM (NA) 135 MEQ/L (136-145)
[2017-06-03 08:03] LABS: ALKALINE PHOSPHATASE 92 U/L (45-117); TOTAL BILIRUBIN ADULT 1.4 MG/DL (0.2-1.0)
[2017-06-03] MEDS: ATORVASTATIN 20 MG TAB PO SCH (08:11)
[2017-06-03] MEDS: NYSTATIN SUSP 500,000 U/5 ML CUP SWISH-SWAL SCH ×4 (08:11→21:00)
[2017-06-03] MEDS: SODIUM CHLORIDE 0.9% FLUSH 10 ML FLUSH IVF SCH (08:25)
[2017-06-03] MEDS: SODIUM CHLORIDE 0.9% FLUSH 10 ML FLUSH IV FLUSH SCH ×2 (08:25→21:30)
[2017-06-03] MEDS: DOCUSATE SODIUM 50 MG/SENNA 8.6 MG TAB PO SCH ×2 (08:25→21:00)
[2017-06-03] MEDS ORDERED: SODIUM CHLOR 0.9% 250 ML INJ 250 ML IV ONE ×2 (08:30→13:30)
[2017-06-03] MEDS ORDERED: ACETAMINOPHEN 325 MG TAB PO PRN ×2 (08:30→13:30)
[2017-06-03 08:35] LABS: ATYPICAL LYMPHOCYTES 7 % (0-0); PLASMA CELLS 7 % (0-0); WBC DIFF SAMPLE 15
[2017-06-03 08:37] LABS: PLATELET ESTIMATE SMEAR RARE (NORMAL); PLATELET MORPHOLOGY NORMAL (NORMAL); SCAN/DIFF FINAL DIFF MANUAL
--- NOTE | 2017-06-03 10:04 | PD.ONC.PN ---
Subjective Subjective Remarks Afebrile overnight. RN states his Jang catheter tubing "cracked" today when it was flushed Pt denies any acute complaints. Asking to take a shower. Objective Data Date Time Temp Pulse Resp B/P Pulse Ox O2 Delivery O2 Flow Rate FiO2 06/03/17 08:00 98.1 91 19 113/68 93 06/03/17 04:00 98.5 98 18 107/64 96 06/03/17 04:00 106 06/03/17 00:00 98.6 96 18 119/69 96 06/03/17 00:00 97 06/02/17 23:50 98 Room Air 06/02/17 20:00 99.2 84 19 120/74 96 06/02/17 20:00 73 06/02/17 16:47 88 06/02/17 15:50 96.6 82 20 102/69 98 06/02/17 13:55 98.6 82 16 103/57 97 06/02/17 12:00 86 06/02/17 11:58 98.5 96 20 129/72 99 06/02/17 09:59 95 Room Air 21 06/03/17 06/03/17 06/03/17 07:00 15:00 23:00 Intake Total 480 ml Output Total 750 ml Balance -270 ml Result Diagram: 06/03/17 0450 06/03/17 0450 Laboratory Results Laboratory Tests Test 06/03/17 04:50 White Blood Count 0.2 TH/MM3 Red Blood Count 2.46 MIL/MM3 Hemoglobin 7.3 GM/DL Hematocrit 20.5 % Mean Corpuscular Volume 83.4 FL Mean Corpuscular Hemoglobin 29.5 PG Mean Corpuscular Hemoglobin 35.4 % Concent Red Cell Distribution Width 15.7 % Platelet Count 22 TH/MM3 Mean Platelet Volume 8.0 FL Neutrophils (%) (Auto) % Lymphocytes (%) (Auto) % Monocytes (%) (Auto) % Eosinophils (%) (Auto) % Basophils (%) (Auto) % Neutrophils # (Auto) TH/MM3 Lymphocytes # (Auto) TH/MM3 Monocytes # (Auto) TH/MM3 Eosinophils # (Auto) TH/MM3 Basophils # (Auto) TH/MM3 CBC Comment AUTO DIFF Differential Total Cells 15 Counted Lymphocytes % 87 % Neutrophils # (Manual) 0.0 TH/MM3 Differential Comment FINAL DIFF MANUAL Atypical Lymphocytes 7 % Plasma Cells 7 % Platelet Estimate RARE Platelet Morphology Comment NORMAL Sodium Level 135 MEQ/L Potassium Level 4.0 MEQ/L Chloride Level 102 MEQ/L Carbon Dioxide Level 24.4 MEQ/L Anion Gap 9 MEQ/L Blood Urea Nitrogen 17 MG/DL Creatinine 0.58 MG/DL Estimat Glomerular Filtration 141 ML/MIN Rate Random Glucose 101 MG/DL Calcium Level 8.4 MG/DL Total Bilirubin 1.4 MG/DL Aspartate Amino Transf 8 U/L (AST/SGOT) Alanine Aminotransferase 16 U/L (ALT/SGPT) Alkaline Phosphatase 92 U/L Total Protein 6.0 GM/DL Albumin 2.5 GM/DL Administered Medications Medications (Trade) Dose Ordered Sig/Maritza Route PRN Reason Start Time Stop Time Status Last Admin Dose Admin Sodium Chloride (NS Flush) 2 ml UNSCH PRN IV FLUSH FLUSH AFTER USING IV ACCESS 05/10/17 15:00 05/15/17 03:47 Sodium Chloride (NS Flush) 2 ml BID IV FLUSH 05/10/17 21:00 06/02/17 09:59 Acetaminophen (Tylenol) 650 mg Q4H PRN PO TEMP > 100.4 OR PREMEDICATION FOR BLOOD PRODUCT 05/10/17 15:00 06/02/17 12:23 Ondansetron HCl (Zofran Inj) 4 mg Q6H PRN IVP NAUSEA OR VOMITING 05/10/17 15:00 05/23/17 22:50 Senna/Docusate Sodium (Cinthia-Colace) 1 tab BID PO 05/10/17 21:00 05/20/17 08:18 Amlodipine Besylate (Norvasc) 5 mg DAILY PO 05/11/17 09:00 Hold 05/14/17 10:17 Atorvastatin Calcium (Lipitor) 20 mg DAILY PO 05/11/17 09:00 06/03/17 08:11 Lisinopril (Prinivil) 20 mg DAILY PO 05/11/17 09:00 Hold 05/26/17 09:43 Oxycodone HCl 5 mg 5 mg Q4H PRN PO PAIN SCALE 3 TO 5 05/11/17 12:00 05/12/17 01:23 Sodium Chloride (NS 1000 ml Inj) 1,000 ml @ 30 mls/hr Q24H IV 05/15/17 12:00 06/03/17 04:00 Diphenhydramine HCl (Benadryl) 25 mg Q4H PRN PO PRE-MEDICATE FOR BLOOD PRODUCT 05/15/17 15:30 05/31/17 09:30 Sodium Chloride (NS Flush) DAILY IVF 05/19/17 09:00 06/03/17 08:25 Heparin Sodium (Porcine) (Heparin Central Flush) DAILY IV FLUSH 05/19/17 09:00 05/25/17 09:38 Metoprolol Tartrate (Lopressor) 25 mg Q8H PO 05/29/17 17:00 06/03/17 08:11 Nystatin 5 ml 5 ml QID SWISH-SWAL 05/31/17 09:00 06/03/17 08:11 Cefepime HCl/ Sodium Chloride (Maxipime Inj/NS Inj) 100 ml @ 200 mls/hr Q12H IV 06/02/17 14:00 06/03/17 01:11 Objective Remarks GENERAL: Pleasant male, upright in bed in nad SKIN: Warm and dry. Jang catheter on the right chest wall. No oozing from insertion site. HEAD: Normocephalic. EYES: No injection or drainage. NECK: Supple, trachea midline. CARDIOVASCULAR: +S1/S2. No murmur appreciated RESPIRATORY: Breath sounds equal bilaterally. No accessory muscle use. GASTROINTESTINAL: Abdomen round,soft. Non-tender, nondistended. EXTREMITIES: No cyanosis. Left wrist with thrombophlebitis. Bilateral lower extremities no edema NEUROLOGICAL: Awake and alert. Normal speech. Moving all extremities. 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 Started on induction systemic chemotherapy with idarubicin/cytarabine (3+7) on . Induction completed on 05/23/2017. (2) Neutropenic fever Status: Acute Plan: --Levaquin stopped 05/27 --Blood cultures and urine cultures are negative to date. -- Cefepime started on 06/02/17 for erythematous thrombophlebitis to L wrist. (3) Hyperbilirubinemia Status: Acute Plan: --combination of direct and indirect elevated. --unclear etiology --hepatitis panel is negative. (4) Respiratory insufficiency Status: Resolved Plan: --CXR, 05/23, shows improvement --pulmonology following --CT chest shows alveolar infiltrates. --on duonebs PRN --Lasix PRN (5) Atrial fibrillation Status: Acute Plan: --rate controlled on metoprolol Assessment 66y/o male with newly diagnosed AMML. Plan 1. D21 following initiation of idarubicin and cytarabine induction systemic therapy. Continue monitoring trend of blood counts. 2. Will give 1 unit PRBC's today for H/H of 7.3/20.5. 3. US showed thrombophlebitis of L wrist. On cefepime. 4. Per RN Jang catheter malfunctioned. Will plan to send pt to [facility] tomorrow to have it removed. 5. Will likely do repeat BMB this upcoming week once counts have started to recover. Attending Statement The exam, history, and the medical decision-making described in the above note were completed with the assistance of the mid-level provider. I reviewed and agree with the findings presented. I attest that I had a [id number] encounter with the patient on the same day, and personally performed and documented my assessment and findings in the medical record. remains severely neutropenic continue abx, blood cultures negative feels weak 1 unit of prbc broken Jang catheter IR to replace catheter in AM--will need platelet transfusion prior to the procedure d/w rn Problem Qualifiers (1) Acute myelomonocytic leukemia: Qualified Code: C92.50 - Acute myelomonocytic leukemia not having achieved remission Patience Renner Jun 03, 2017 10:04 Raphael Katz MD Jun 03, 2017 16:39
[2017-06-03] MEDS ORDERED: FUROSEMIDE 20 MG/2 ML VIAL IV ONE (13:30)
[2017-06-03] MEDS: ACETAMINOPHEN 325 MG TAB PO PRN ×2 (14:25→18:11)
[2017-06-03] MEDS: diphenhydrAMINE HCL 25 MG CAP PO PRN ×2 (14:25→18:11)
--- NOTE | 2017-06-03 15:29 | HHI.PR ---
Subjective Remarks Follow-up on patient with pancytopenia. Patient seen and examined today. Patient denies any acute medical complaints. He denies any dizziness or headache. Denies any shortness of breath or chest pain. No fever or chills. No nausea/vomiting or abdominal pain. Objective Vitals Vital Signs Date Time Temp Pulse Resp B/P Pulse Ox O2 Delivery O2 Flow Rate FiO2 06/03/17 12:09 95.1 101 20 109/73 95 06/03/17 08:11 93 Room Air 21 06/03/17 08:00 98.1 91 19 113/68 93 06/03/17 04:00 98.5 98 18 107/64 96 06/03/17 04:00 106 06/03/17 00:00 98.6 96 18 119/69 96 06/03/17 00:00 97 06/02/17 23:50 98 Room Air 06/02/17 20:00 99.2 84 19 120/74 96 06/02/17 20:00 73 06/02/17 16:47 88 06/02/17 15:50 96.6 82 20 102/69 98 I/O 06/02/17 06/02/17 06/02/17 06/03/17 06/03/17 06/03/17 07:00 15:00 23:00 07:00 15:00 23:00 Intake Total 857 ml 1673 ml 1032 ml 480 ml 480 ml Output Total 750 ml 300 ml 100 ml 750 ml 150 ml Balance 107 ml 1373 ml 932 ml -270 ml 330 ml Intake Oral 240 ml 1320 ml 480 ml 240 ml 480 ml IV Total 617 ml 353 ml 240 ml 240 ml Platelets 312 ml Output Urine Total 750 ml 300 ml 100 ml 750 ml 150 ml # Voids 4 3 # Bowel Movements 1 1 1 Result Diagram: 06/03/17 0450 06/03/17 0450 Imaging Last Impressions Upper Extremity Ultrasound 06/02/17 0000 Signed Impressions: Service Date/Time: Friday, June 02, 2017 15:46 - CONCLUSION: Thrombophlebitis. K. Rachid Denney MD Chest X-Ray 05/23/17 0000 Signed Impressions: Service Date/Time: Tuesday, May 23, 2017 11:16 - CONCLUSION: Interval improvement when compared to 2916. Ryan Hoover MD FACR Catheter Placement X-Ray 05/18/17 0000 Signed Impressions: Service Date/Time: Thursday, May 18, 2017 16:40 - CONCLUSION: Uncomplicated ultrasound and fluoroscopic guided dual lumen Jang catheter implantation as described. Emerson Carrasquillo MD Chest CT 05/17/17 0000 Signed Impressions: Service Date/Time: April 17:53 - CONCLUSION: 1. Bilateral alveolar infiltrates most characteristic of pulmonary edema. 2. Small to moderate bilateral pleural effusions. 3. Small amount of pericardial fluid. 4. Coronary artery calcifications. 5. Prominent left lobe of the thyroid with low attenuation nodular area. Braxton Tidwell MD Bone Biopsy CT 05/11/17 1309 Signed Impressions: Service Date/Time: Thursday, May 11, 2017 15:10 - CONCLUSION: 1. Uncomplicated CT guided bone marrow aspirate. 2. Uncomplicated CT guided bone marrow biopsy. Ryan Hoover MD FACR Soft Tissue Ultrasound 05/11/17 0000 Signed Impressions: Service Date/Time: Thursday, May 11, 2017 08:27 - CONCLUSION: Negative for abscess. Edematous changes in the soft tissues of the left axilla. Hank Nixon MD Objective Remarks GENERAL: Well-nourished, well-developed patient in NAD. Sleeping in hospital bed but easily awakens to voice. SKIN: Warm and dry. No rash. HEENT: Normocephalic. Atraumatic. EOMI. MMM. CARDIOVASCULAR: Irregular. S1, S2 noted. No murmur appreciated. RESPIRATORY: No accessory muscle use. Clear to auscultation. Breath sounds equal bilaterally. GASTROINTESTINAL: Abdomen soft, non-tender, nondistended. Normoactive bowel sounds x4. MUSCULOSKELETAL: No obvious deformities. Extremities without clubbing, cyanosis , or edema. Left wrist, dorsal aspect, swollen, mildly tender, no bleeding. NEUROLOGICAL: Awake and alert. Able to move all extremities. Normal speech. Hard of hearing, reads lips. Procedures Echo 05/14/2017 CONCLUSIONS The left ventricular systolic function is normal with an estimated ejection fraction in the range of 55-60%. Wall thickness is measured at the upper limits of normal. The right ventricle is mildly dilated. Mild mitral valve regurgitation. There is trace tricuspid valve regurgitation. Medications and IVs Current Medications Medications (Trade) Dose Ordered Sig/Maritza Route Start Time Stop Time Status Last Admin (NS Flush) 2 ml UNSCH PRN IV FLUSH 05/10/17 15:00 05/15/17 03:47 (NS Flush) 2 ml BID IV FLUSH 05/10/17 21:00 06/02/17 09:59 (Tylenol) 650 mg Q4H PRN PO 05/10/17 15:00 06/03/17 14:25 (Zofran Inj) 4 mg Q6H PRN IVP 05/10/17 15:00 05/23/17 22:50 (Cinthia-Colace) 1 tab BID PO 05/10/17 21:00 05/20/17 08:18 (Milk Of Magnesia Liq) 30 ml Q12H PRN PO 05/10/17 15:00 (Senokot) 17.2 mg Q12H PRN PO 05/10/17 15:00 (Dulcolax Supp) 10 mg DAILY PRN RECTAL 05/10/17 15:00 (Lactulose Liq) 30 ml DAILY PRN PO 05/10/17 15:00 (Norvasc) 5 mg DAILY PO 05/11/17 09:00 Hold 05/14/17 10:17 (Lipitor) 20 mg DAILY PO 05/11/17 09:00 06/03/17 08:11 (Prinivil) 20 mg DAILY PO 05/11/17 09:00 Hold 05/26/17 09:43 (Roxicodone) 5 mg Q4H PRN PO 05/11/17 12:00 05/12/17 01:23 (Roxicodone) 10 mg Q6H PRN PO 05/11/17 12:00 (Pill Splitter) 1 ea UNSCH PRN OTHER 05/14/17 12:15 Sodium Chloride 5 ml 5 ml UNSCH PRN IV FLUSH 05/14/17 23:30 (NS 1000 ml Inj) 1,000 ml @ 30 mls/hr Q24H IV 05/15/17 12:00 06/03/17 04:00 (Benadryl) 25 mg Q4H PRN PO 05/15/17 15:30 06/03/17 14:25 (D50w (Vial) Inj) 25 ml UNSCH PRN IV PUSH 05/17/17 11:30 (Glucagon Inj) 1 mg UNSCH PRN OTHER 05/17/17 11:30 (NS Flush) DAILY IVF 05/19/17 09:00 06/03/17 08:25 (Heparin Central Flush) DAILY IV FLUSH 05/19/17 09:00 05/25/17 09:38 (NS Flush) UNSCH PRN IVF 05/18/17 18:00 (Heparin Central Flush) UNSCH PRN IV FLUSH 05/18/17 18:00 (NovoLOG SUPPLEMENTAL SCALE) 1 BIDAC SQ 05/29/17 07:00 (Lopressor) 25 mg Q8H PO 05/29/17 17:00 06/03/17 08:11 (Isabella Davin Lyburn) 2 spray Q4H PRN EACH NARE 05/31/17 08:30 Nystatin 5 ml 5 ml QID SWISH-SWAL 05/31/17 09:00 06/03/17 13:57 Cefepime HCl 2000 mg/Sodium Chloride 100 ml @ 200 mls/hr Q12H IV 06/02/17 14:00 06/03/17 13:58 (NS 250 ml Inj) 250 ml @ 15 mls/hr ONCE ONCE IV 06/03/17 08:30 06/04/17 01:09 A/P Problem List: (1) Pancytopenia ICD Code: D61.818 Status: Acute (2) Macrocytic anemia ICD Code: D53.9 Status: Acute (3) Alcohol abuse ICD Code: F10.10 Status: Acute (4) S/P tympanic tube insertion ICD Code: Z96.22 Status: Acute Assessment and Plan Mr. Gutiérrez is a 66 y/o male with a history of HTN, HLD, AFIB and arthritis presented to the ED with complaints of dizziness and weakness. A recent blood work by PCP showed rapid decline in his H&H which prompted patient to seek medical attention. Due to pancytopenia, hematology/oncology was consulted. Acute myelomonocytic anemia - Medical oncology following. Remains pancytopenic. - S/p bone marrow biopsy. Pathology revealed acute myelomonocytic leukemia. - Induction chemotherapy completed 05/23/2017. S/p platelet transfusion. Plts 22. - 1 unit PRBCs ordered by [facility] for H/H of 7.3/20.5. - RN states Jang catheter tubing "cracked" today - heme/onc plans to send patient to [facility] tomorrow to have it removed. IV peripheral access for now. - Maintain neutropenic precautions Left wrist swelling - US revealed thrombophlebitis - Started on cefepime 06/02/17 by hematology Acute respiratory failure Pleural effusion Probable pneumonia Left axillary cellulitis - ID discontinued Vancomycin. - CXR showed improvement with minimal airspace disease. - CXR shows improvement. Was on Levaquin, stopped on 05/27/2017. Patient remains afebrile. Cefepime started 06/02. Hypertension Hyperlipidemia - Continue atorvastatin 20 mg and metoprolol - Hold Amlodipine and Lisinopril for now. Atrial fibrillation -continue metoprolol Dysphagia --on Nystatin per oncology Full code. SCDs. Discussed with nursing staff, patient and Dr. Kidd Discharge Planning Pending hematology clearance, will likely go home with home health care. Brenda Henry Jun 03, 2017 15:29
[2017-06-03 21:06] LABS: MEAN CORPUSCULAR HGB CONC 36.1 % (32.0-36.0)
[2017-06-04] VITALS (7 sets, daily range): BP systolic 98–148; BP diastolic 53–83; PULSE 77–101; RESP 18; TEMP 96.6–100.9; O2SAT 96–99
[2017-06-04] MEDS: METOPROLOL TARTRATE 25 MG TAB PO SCH ×3 (00:49→17:41)
[2017-06-04] MEDS: CEFEPIME INJ 2,000 MG in SODIUM CHLORIDE 0.9% INJ 100 ML IV SCH ×2 (02:13→15:40)
[2017-06-04] MEDS: SODIUM CHLOR 0.9% 1000 ML INJ 1,000 ML IV SCH (06:01)
[2017-06-04] MEDS: INSULIN ASPART SUPPLEMENTAL SCALE SQ SCH ×2 (06:03→16:00)
--- NOTE | 2017-06-04 07:56 | PD.ONC.PN ---
Subjective Subjective Remarks Patient was seen and examined, vital signs, labs, medications and radiology reviewed. Over the course of the weekend his Souza catheter malfunctioned and peripheral IVs had to be placed. On his left forearm at a site of attempted peripheral IV placement he developed a hematoma which is painful; ultrasound Doppler of the left forearm was performed and findings of thrombophlebitis right identified. He had a temperature of 100F overnight, he is on empiric antibiotic therapy with cefepime 2 g IV every 12 hours. Objective Data Date Time Temp Pulse Resp B/P Pulse Ox O2 Delivery O2 Flow Rate FiO2 06/04/17 04:00 86 06/04/17 04:00 100.0 98 18 125/74 97 06/04/17 00:00 97.2 88 18 98/53 99 06/04/17 00:00 89 06/03/17 21:02 98 Room Air 06/03/17 20:00 92 06/03/17 20:00 99.1 87 19 108/77 98 06/03/17 18:15 98.6 98 18 118/76 98 06/03/17 17:51 98.6 88 18 111/64 97 06/03/17 16:30 98.7 91 20 122/72 97 06/03/17 15:51 98 06/03/17 12:09 95.1 101 20 109/73 95 06/03/17 12:04 99 06/03/17 08:11 93 Room Air 21 06/03/17 08:00 82 06/03/17 08:00 98.1 91 19 113/68 93 06/04/17 06/04/17 06/04/17 07:00 15:00 23:00 Intake Total 240 ml Output Total 150 ml Balance 90 ml Result Diagram: 06/03/17 0450 06/03/17 0450 Laboratory Results Laboratory Tests Test 06/03/17 06/03/17 13:20 14:14 Blood Bank Comment Blood Type A POSITIVE Antibody Screen NEGATIVE Crossmatch Irradiated/Leukocyte-Reduced RBC Administered Medications Medications (Trade) Dose Ordered Sig/Maritza Route PRN Reason Start Time Stop Time Status Last Admin Dose Admin Sodium Chloride (NS Flush) 2 ml UNSCH PRN IV FLUSH FLUSH AFTER USING IV ACCESS 05/10/17 15:00 05/15/17 03:47 Sodium Chloride (NS Flush) 2 ml BID IV FLUSH 05/10/17 21:00 06/02/17 09:59 Acetaminophen (Tylenol) 650 mg Q4H PRN PO TEMP > 100.4 OR PREMEDICATION FOR BLOOD PRODUCT 05/10/17 15:00 06/03/17 18:11 Ondansetron HCl (Zofran Inj) 4 mg Q6H PRN IVP NAUSEA OR VOMITING 05/10/17 15:00 05/23/17 22:50 Senna/Docusate Sodium (Cinthia-Colace) 1 tab BID PO 05/10/17 21:00 05/20/17 08:18 Amlodipine Besylate (Norvasc) 5 mg DAILY PO 05/11/17 09:00 Hold 05/14/17 10:17 Atorvastatin Calcium (Lipitor) 20 mg DAILY PO 05/11/17 09:00 06/03/17 08:11 Lisinopril (Prinivil) 20 mg DAILY PO 05/11/17 09:00 Hold 05/26/17 09:43 Oxycodone HCl 5 mg 5 mg Q4H PRN PO PAIN SCALE 3 TO 5 05/11/17 12:00 05/12/17 01:23 Sodium Chloride (NS 1000 ml Inj) 1,000 ml @ 30 mls/hr Q24H IV 05/15/17 12:00 06/04/17 06:01 Diphenhydramine HCl (Benadryl) 25 mg Q4H PRN PO PRE-MEDICATE FOR BLOOD PRODUCT 05/15/17 15:30 06/03/17 18:11 Sodium Chloride (NS Flush) DAILY IVF 05/19/17 09:00 06/03/17 08:25 Heparin Sodium (Porcine) (Heparin Central Flush) DAILY IV FLUSH 05/19/17 09:00 05/25/17 09:38 Metoprolol Tartrate (Lopressor) 25 mg Q8H PO 05/29/17 17:00 06/03/17 17:17 Nystatin 5 ml 5 ml QID SWISH-SWAL 05/31/17 09:00 06/03/17 17:17 Cefepime HCl/ Sodium Chloride (Maxipime Inj/NS Inj) 100 ml @ 200 mls/hr Q12H IV 06/02/17 14:00 06/04/17 02:13 Objective Remarks GENERAL: Pleasant male, upright in bed in nad SKIN: Warm and dry. souza catheter on the right side, chest wall, c/d/i; IV, left hand without bleeding. HEAD: Normocephalic. EYES: No injection or drainage. Nose: Dried blood in the nares bilaterally. No active bleeding noted. NECK: Supple, trachea midline. CARDIOVASCULAR: +S1/S2, no obvious murmurs or gallops. RESPIRATORY: Breath sounds equal bilaterally. No accessory muscle use. GASTROINTESTINAL: Abdomen soft, non-tender, nondistended. EXTREMITIES: No cyanosis, area of erythema, swelling and redness on the distal left forearm at the site of previous IV placement. NEUROLOGICAL: awake and alert. normal speech. moving all extremities. 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 Started on induction systemic chemotherapy with idarubicin/cytarabine (3+7) on . Induction completed on 05/23/2017. (2) Neutropenic fever Status: Acute Plan: --Levaquin stopped 05/27 --Blood cultures and urine cultures are negative to date. -- Cefepime started on 06/02/17 for erythematous thrombophlebitis to L wrist. (3) Hyperbilirubinemia Status: Acute Plan: --combination of direct and indirect elevated. --unclear etiology --hepatitis panel is negative. (4) Respiratory insufficiency Status: Resolved Plan: --CXR, 05/23, shows improvement --pulmonology following --CT chest shows alveolar infiltrates. --on duonebs PRN --Lasix PRN (5) Atrial fibrillation Status: Acute Plan: --rate controlled on metoprolol Assessment 66y/o male with newly diagnosed AMML. Plan 1. D22 following initiation of idarubicin and cytarabine induction remission systemic therapy. Continue monitoring trend of blood counts. Restaging bone marrow biopsy later this week. 2. Continue transfusion support with red cells and platelets 3. US showed thrombophlebitis of L wrist. On cefepime and vancomycin for empiric coverage given the appearance of cellulitis. 4. Malfunctioning Souza catheter: Will request removal without replacement. 5. Will likely do repeat BMB this upcoming week once counts have started to recover. Problem Qualifiers (1) Acute myelomonocytic leukemia: Qualified Code: C92.50 - Acute myelomonocytic leukemia not having achieved remission Dwain Diez MD Jun 04, 2017 07:56
[2017-06-04] MEDS: DOCUSATE SODIUM 50 MG/SENNA 8.6 MG TAB PO SCH ×2 (08:46→20:30)
[2017-06-04] MEDS: NYSTATIN SUSP 500,000 U/5 ML CUP SWISH-SWAL SCH ×4 (08:51→20:39)
[2017-06-04] MEDS: ATORVASTATIN 20 MG TAB PO SCH (08:51)
[2017-06-04] MEDS: SODIUM CHLORIDE 0.9% FLUSH 10 ML FLUSH IV FLUSH SCH ×2 (08:51→20:35)
[2017-06-04] MEDS ORDERED: LIDOCAINE 1%/EPINEPHrine 1:100,000 SOLN 20 ML VIAL ONE (09:22)
[2017-06-04] MEDS ORDERED: THROMBIN (TOPICAL) 5,000 UNIT VIAL ONE (09:34)
--- NOTE | 2017-06-04 10:06 | PD.RAD ---
Post Procedure Progress Note Pre Procedure Diagnosis: (1) Pancytopenia Post Procedure Diagnosis: (1) Pancytopenia Procedure Date: Jun 04, 2017 Supervising Radiologist: Ruben Nicole JR Proceduralist/Assist: Jayashree Negron, RT(R), Jamilah Isabel, RT(R) Anesthesia: Local Plan of Activity Patient to Unit: Nursing Unit Patient Condition: Good See PACS Report for procedural detail/treatment Central Venous Access Device Procedure 1 Right Internal Jugular Tunneled Central Line Removal dual lumen Afghan: 7 Findings: Jang catheter removed without difficulty. Tract laced with thrombin to aid in hemostasis. Cerclage suture also placed. No bleeding following procedure. Plan Remove sutures in 5-7 days. Jr. Corey,Ruben Alonzo MD Jun 04, 2017 10:06
--- NOTE | 2017-06-04 11:32 | HHI.PR ---
Subjective Remarks Follow-up AMML/left axilla cellulitis/left arm cellulitis/thrombophlebitis left upper extremity 06/04/17-patient seen and examined; Tmax 100.0 however patient denies any chills. No acute event overnight. Plan for replacement of Jang catheter Objective Vitals Vital Signs Date Time Temp Pulse Resp B/P Pulse Ox O2 Delivery O2 Flow Rate FiO2 06/04/17 08:00 99.0 101 18 132/72 98 06/04/17 04:00 86 06/04/17 04:00 100.0 98 18 125/74 97 06/04/17 00:00 97.2 88 18 98/53 99 06/04/17 00:00 89 06/03/17 21:02 98 Room Air 06/03/17 20:00 92 06/03/17 20:00 99.1 87 19 108/77 98 06/03/17 18:15 98.6 98 18 118/76 98 06/03/17 17:51 98.6 88 18 111/64 97 06/03/17 16:30 98.7 91 20 122/72 97 06/03/17 15:51 98 06/03/17 12:09 95.1 101 20 109/73 95 06/03/17 12:04 99 I/O 06/03/17 06/03/17 06/03/17 06/04/17 06/04/17 06/04/17 07:00 15:00 23:00 07:00 15:00 23:00 Intake Total 480 ml 480 ml 800 ml 240 ml Output Total 750 ml 150 ml 450 ml 150 ml Balance -270 ml 330 ml 350 ml 90 ml Intake Oral 240 ml 480 ml 480 ml IV Total 240 ml 20 ml 240 ml Packed Cells 300 ml Output Urine Total 750 ml 150 ml 450 ml 150 ml # Voids 3 # Bowel Movements 1 Result Diagram: 06/03/17 0450 06/03/17 0450 Imaging Last Impressions Upper Extremity Ultrasound 06/02/17 0000 Signed Impressions: Service Date/Time: Friday, June 02, 2017 15:46 - CONCLUSION: Thrombophlebitis. Virginia Denney MD Chest X-Ray 05/23/17 0000 Signed Impressions: Service Date/Time: Tuesday, May 23, 2017 11:16 - CONCLUSION: Interval improvement when compared to 2916. Ryan Hoover MD FACR Catheter Placement X-Ray 05/18/17 0000 Signed Impressions: Service Date/Time: Thursday, May 18, 2017 16:40 - CONCLUSION: Uncomplicated ultrasound and fluoroscopic guided dual lumen Jang catheter implantation as described. Emerson Carrasquillo MD Chest CT 05/17/17 0000 Signed Impressions: Service Date/Time: April 17:53 - CONCLUSION: 1. Bilateral alveolar infiltrates most characteristic of pulmonary edema. 2. Small to moderate bilateral pleural effusions. 3. Small amount of pericardial fluid. 4. Coronary artery calcifications. 5. Prominent left lobe of the thyroid with low attenuation nodular area. Braxton Tidwell MD Bone Biopsy CT 05/11/17 1309 Signed Impressions: Service Date/Time: Thursday, May 11, 2017 15:10 - CONCLUSION: 1. Uncomplicated CT guided bone marrow aspirate. 2. Uncomplicated CT guided bone marrow biopsy. Ryan Hoover MD FACR Soft Tissue Ultrasound 05/11/17 0000 Signed Impressions: Service Date/Time: Thursday, May 11, 2017 08:27 - CONCLUSION: Negative for abscess. Edematous changes in the soft tissues of the left axilla. Hank Nixon MD Objective Remarks GENERAL: NAD SKIN: Warm and dry.some cellulitis to LUE without any drainage HEAD: Normocephalic. EYES: No scleral icterus. No injection or drainage. NECK: Supple, trachea midline. No JVD or lymphadenopathy. CARDIOVASCULAR: Regular rate and rhythm without murmurs, gallops, or rubs. RESPIRATORY: Breath sounds equal bilaterally. No accessory muscle use. GASTROINTESTINAL: Abdomen soft, non-tender, nondistended. MUSCULOSKELETAL: No cyanosis, or edema. BACK: Nontender without obvious deformity. No CVA tenderness. Procedures Echo 05/14/2017 CONCLUSIONS The left ventricular systolic function is normal with an estimated ejection fraction in the range of 55-60%. Wall thickness is measured at the upper limits of normal. The right ventricle is mildly dilated. Mild mitral valve regurgitation. There is trace tricuspid valve regurgitation. A/P Problem List: (1) Pancytopenia ICD Code: D61.818 Status: Acute (2) Macrocytic anemia ICD Code: D53.9 Status: Acute (3) Alcohol abuse ICD Code: F10.10 Status: Acute (4) S/P tympanic tube insertion ICD Code: Z96.22 Status: Acute (5) AML M5 (acute monocytic leukemia) ICD Code: C93.00 Status: Acute (6) Cellulitis ICD Code: L03.90 Status: Acute (7) Neutropenic fever ICD Code: D70.9 Status: Acute Assessment and Plan 66-year-old man with Acute myelomonocytic anemia - Management per medical oncology - Induction chemotherapy completed 05/23/2017. S/p platelet transfusion. - Blood transfusion along with platelet transfusion per oncology - Plan for replacement of Jang catheter today 06/04/17 Left upper extremity phlebitis - Completed Levaquin therapy for axilla cellulitis Secondary to questionable cellulitis of left arm currently on cefepime Neutropenic fever Continue with cefepime Acute respiratory failure Pleural effusion Probable pneumonia Left axillary cellulitis - ID discontinued Vancomycin. - Currently on cefepime as in above Hypertension Hyperlipidemia - Continue atorvastatin 20 mg and metoprolol - Hold Amlodipine and Lisinopril for now. Atrial fibrillation -continue metoprolol Dysphagia --on Nystatin per oncology Full code. SCDs. Sebastián Osborne MD Jun 04, 2017 11:32
--- NOTE | 2017-06-04 11:36 | RADRPT ---
EXAM DATE/TIME: 06/04/2017 07:51 [facility] COMPARISON: No previous studies available for comparison. INDICATIONS : Patient with a history of leukemia no longer needs jang catheter patient has thrombocytopenia. Pat ient is receiving platelets during the removal of the catheter.. MEDICAL HISTORY : History of leukemia, pancytopenia, anemia, chronic ear infection, HTN, AFIB, hyperlipiodemia, ETOH abuse, neutropenic fever, hyperbilirubinemia, respiratory insufficiency. SURGICAL HISTORY : History of hernia repair, tonsillectomy, left knee replacement, tunneled Jang catheter placement, tympanic tube insertion. ENCOUNTER: Subsequent ACUITY: 3 weeks PAIN SCORE: 0/10 IMAGE SERIES: MEDICATION(S): 1.) 5000 units Thrombin SQ PROCEDURE : 1. PermaCath removal. The risks, benefits and alternatives to the procedure were explained and verbal and written consent w as obtained. The site was prepped in sterile fashion. Full sterile technique was used, including ca p, mask, sterile gloves and gown and a large sterile sheet. Hand hygiene and 2% chlorhexidine and/or betadine/alcohol prep was utilized per protocol for cutaneous antisepsis. The skin and subcutaneous tissues were infiltrated with local anesthetic solution. The tract was anesthetized with 1% Lidocaine using. The cuff of the catheter is fairly high within t he tract requiring an incision over the cuff. The Jang was dissected from the subcutaneous tissues and easily removed in one piece. The tract was laced with thrombin. Manual pressure was applied to t he venotomy site until hemostasis was obtained. A silk suture was utilized at the incision site as we ll as the dermatotomy site. Sterile dressing was applied. The patient tolerated the procedure well and there were no complications. CONCLUSION: Uncomplicated Jang removal. Ruben Nicole Jr., MD on June 04, 2017 at 11:33 Board Certified Radiologist. This report was verified electronically.
[2017-06-04] MEDS: VANCOMYCIN INJ 1,000 MG in SODIUM CHLOR 0.9% 250 ML INJ 250 ML IV SCH ×2 (13:01→20:37)
[2017-06-04] MEDS: SODIUM CHLORIDE 0.9% FLUSH 10 ML FLUSH IVF SCH (13:05)
[2017-06-04] MEDS: ACETAMINOPHEN 325 MG TAB PO PRN (17:41)
[2017-06-04 19:48] LABS: BASOPHIL % 0.1 % (0.0-2.0); EOSINOPHIL % 0.1 % (0.0-4.0); LYMPH % 68.6 % (9.0-44.0); LYMPHOCYTE # 0.3 TH/MM3 (1.0-4.8); MEAN CELL VOLUME 82.3 FL (80.0-100.0); MEAN CORPUSCULAR HEMOGLOBIN 29.7 PG (27.0-34.0); MONO % 23.6 % (0.0-8.0); NEUT % 7.6 % (16.0-70.0); PLATELET COUNT 82 TH/MM3 (150-450); RED BLOOD COUNT 2.46 MIL/MM3 (4.50-5.90); RED CELL DISTRIBUTION WIDTH 15.5 % (11.6-17.2); WHITE BLOOD COUNT 0.4 TH/MM3 (4.0-11.0)
--- NOTE | 2017-06-04 19:54 | HHI.PR ---
Subjective Remarks 66 YOWM with ac Monomyelocytik leuk, bilat infilt No hemoptysis Has Fever, T max 100.9 Appetite poor Objective Vital Signs Vital Signs Date Time Temp Pulse Resp B/P Pulse Ox O2 Delivery O2 Flow Rate FiO2 06/04/17 16:00 100.9 99 18 135/78 98 06/04/17 12:00 100.1 83 18 148/83 98 06/04/17 08:47 Room Air 06/04/17 08:00 99.0 101 18 132/72 98 06/04/17 04:00 86 06/04/17 04:00 100.0 98 18 125/74 97 06/04/17 00:00 97.2 88 18 98/53 99 06/04/17 00:00 89 06/03/17 21:02 98 Room Air 06/03/17 20:00 92 06/03/17 20:00 99.1 87 19 108/77 98 I/O 06/03/17 06/03/17 06/03/17 06/04/17 06/04/17 06/04/17 07:00 15:00 23:00 07:00 15:00 23:00 Intake Total 480 ml 480 ml 800 ml 240 ml 1118 ml Output Total 750 ml 150 ml 450 ml 150 ml 400 ml 225 ml Balance -270 ml 330 ml 350 ml 90 ml 718 ml -225 ml Intake Oral 240 ml 480 ml 480 ml 720 ml IV Total 240 ml 20 ml 240 ml 398 ml Packed Cells 300 ml Output Urine Total 750 ml 150 ml 450 ml 150 ml 400 ml 225 ml # Voids 3 # Bowel Movements 1 1 Result Diagram: 06/03/17 0450 06/03/17 0450 Objective Remarks GENERAL: WMWN WM, NAD SKIN: Warm and dry. HEAD: Normocephalic. EYES: No scleral icterus. No injection or drainage. NECK: Supple, trachea midline. No JVD or lymphadenopathy. CARDIOVASCULAR: Regular rate and rhythm without murmurs, gallops, or rubs. RESPIRATORY: Breath sounds equal bilaterally. No accessory muscle use. GASTROINTESTINAL: Abdomen soft, non-tender, nondistended. MUSCULOSKELETAL: No cyanosis, or edema. BACK: Nontender without obvious deformity. No CVA tenderness. A/P Assessment and Plan Bilat Infilt Pleural effusion mild Hemoptysis Ac Monomyelocytic Leukemia Pancytopenia PLAN" Cont Abx per ID monitor pl fluid Supplement 02 Monitor CBC Encourage PO Stable from pulm standpoint Available prn over weekend. Donald Mayo MD Jun 04, 2017 19:54
[2017-06-04 20:09] LABS: ALT (GPT) 19 U/L (12-78); ANION GAP 7 MEQ/L (5-15); AST (GOT) 10 U/L (15-37); BICARBONATE 25.2 MEQ/L (21.0-32.0); BLOOD UREA NITROGEN 18 MG/DL (7-18); CHLORIDE 103 MEQ/L (98-107); GLOMERULAR FILTRATION RATE 106 ML/MIN (>89); POTASSIUM 3.6 MEQ/L (3.5-5.1); SODIUM (NA) 135 MEQ/L (136-145)
[2017-06-04 20:11] LABS: ALKALINE PHOSPHATASE 105 U/L (45-117)
[2017-06-04 20:17] LABS: HEMO FLAGS AUTO DIFF
[2017-06-04 20:31] LABS: HEMATOCRIT 20.2 % (39.0-51.0)
[2017-06-04 21:05] LABS: MEAN CORPUSCULAR HGB CONC 36.7 % (32.0-36.0)
[2017-06-04 21:24] LABS: BANDS 1 % (0-6); BLASTS 3 % (0-0); METAMYELOCYTES 1 % (0-1); POLYS (SEG NEUTROPHILS) 5 % (16-70); WBC DIFF SAMPLE 100
[2017-06-04 21:25] LABS: PLATELET ESTIMATE SMEAR LOW (NORMAL); PLATELET MORPHOLOGY ENLARGED (NORMAL); SCAN/DIFF FINAL DIFF MANUAL
[2017-06-05] VITALS (12 sets, daily range): BP systolic 109–138; BP diastolic 53–84; PULSE 65–106; RESP 15–20; TEMP 97.8–99.7; O2SAT 95–100
[2017-06-05] MEDS: CEFEPIME INJ 2,000 MG in SODIUM CHLORIDE 0.9% INJ 100 ML IV SCH ×3 (00:36→16:05)
[2017-06-05] MEDS: diphenhydrAMINE HCL 25 MG CAP PO PRN (00:36)
[2017-06-05] MEDS: METOPROLOL TARTRATE 25 MG TAB PO SCH ×3 (00:37→17:36)
[2017-06-05] MEDS: ACETAMINOPHEN 325 MG TAB PO PRN (00:38)
[2017-06-05] MEDS: SODIUM CHLOR 0.9% 1000 ML INJ 1,000 ML IV SCH (04:00)
[2017-06-05] MEDS: INSULIN ASPART SUPPLEMENTAL SCALE SQ SCH ×2 (05:23→16:00)
[2017-06-05 06:34] LABS: HEMATOCRIT 25.3 % (39.0-51.0); MEAN CELL VOLUME 83.1 FL (80.0-100.0); MEAN CORPUSCULAR HEMOGLOBIN 30.5 PG (27.0-34.0); PLATELET COUNT 102 TH/MM3 (150-450); RED BLOOD COUNT 3.05 MIL/MM3 (4.50-5.90); RED CELL DISTRIBUTION WIDTH 15.1 % (11.6-17.2); WHITE BLOOD COUNT 0.6 TH/MM3 (4.0-11.0)
[2017-06-05 06:42] LABS: HEMO FLAGS AUTO DIFF
--- NOTE | 2017-06-05 07:59 | PD.ONC.PN ---
Subjective Subjective Remarks Reports fatigue, had temperature of 100.9F yesterday afternoon. Jang catheter was discontinued yesterday. He otherwise denies acute complaints, appetite is present but he dislikes the taste of hospital food. He has been ambulating more in his room and feels he has more energy. Objective Data Date Time Temp Pulse Resp B/P Pulse Ox O2 Delivery O2 Flow Rate FiO2 06/05/17 04:27 89 06/05/17 04:05 99.7 92 16 127/84 96 06/05/17 02:05 98.5 86 16 111/62 95 06/05/17 01:45 99.0 65 15 109/60 95 06/05/17 00:30 98.8 101 18 138/69 97 06/05/17 00:00 81 06/04/17 21:01 96.6 99 18 101/66 96 06/04/17 20:45 77 06/04/17 20:45 Room Air 06/04/17 16:00 100.9 99 18 135/78 98 06/04/17 12:00 100.1 83 18 148/83 98 06/04/17 08:47 Room Air 06/04/17 08:00 99.0 101 18 132/72 98 Result Diagram: 06/05/17 0607 06/04/17 1931 Laboratory Results Laboratory Tests Test 06/04/17 06/04/17 06/05/17 19:31 21:45 06:07 White Blood Count 0.4 TH/MM3 0.6 TH/MM3 Red Blood Count 2.46 MIL/MM3 3.05 MIL/MM3 Hemoglobin 7.3 GM/DL 9.3 GM/DL Hematocrit 20.2 % 25.3 % Mean Corpuscular Volume 82.3 FL 83.1 FL Mean Corpuscular Hemoglobin 29.7 PG 30.5 PG Mean Corpuscular Hemoglobin 36.1 % 36.7 % Concent Red Cell Distribution Width 15.5 % 15.1 % Platelet Count 82 TH/MM3 102 TH/MM3 Mean Platelet Volume 8.2 FL 7.9 FL Neutrophils (%) (Auto) 7.6 % % Lymphocytes (%) (Auto) 68.6 % % Monocytes (%) (Auto) 23.6 % % Eosinophils (%) (Auto) 0.1 % % Basophils (%) (Auto) 0.1 % % Neutrophils # (Auto) 0.0 TH/MM3 TH/MM3 Lymphocytes # (Auto) 0.3 TH/MM3 TH/MM3 Monocytes # (Auto) 0.1 TH/MM3 TH/MM3 Eosinophils # (Auto) 0.0 TH/MM3 TH/MM3 Basophils # (Auto) 0.0 TH/MM3 TH/MM3 CBC Comment AUTO DIFF AUTO DIFF Differential Total Cells 100 Counted Neutrophils % (Manual) 5 % Band Neutrophils % 1 % Lymphocytes % 76 % Monocytes % 14 % Neutrophils # (Manual) 0.0 TH/MM3 Metamyelocytes 1 % Differential Comment FINAL DIFF MANUAL Atypical Lymphocytes % Blastocytes 3 % Platelet Estimate LOW Platelet Morphology Comment ENLARGED Red Cell Morphology Comment NORMAL Sodium Level 135 MEQ/L Potassium Level 3.6 MEQ/L Chloride Level 103 MEQ/L Carbon Dioxide Level 25.2 MEQ/L Anion Gap 7 MEQ/L Blood Urea Nitrogen 18 MG/DL Creatinine 0.74 MG/DL Estimat Glomerular Filtration 106 ML/MIN Rate Random Glucose 134 MG/DL Calcium Level 8.0 MG/DL Total Bilirubin 1.0 MG/DL 2.0 MG/DL Aspartate Amino Transf 10 U/L (AST/SGOT) Alanine Aminotransferase 19 U/L (ALT/SGPT) Alkaline Phosphatase 105 U/L Total Protein 6.2 GM/DL Albumin 2.5 GM/DL Blood Type A POSITIVE Crossmatch Irradiated/Leukocyte-Reduced RBC Blood Bank Comment Direct Bilirubin 0.5 MG/DL Culture Results Microbiology Date/Time Procedure Status Source Growth 06/04/17 19:31 Aerobic Blood Culture Received Blood Peripheral Pending 06/04/17 19:31 Anaerobic Blood Culture Received Blood Peripheral Pending 06/04/17 19:36 Aerobic Blood Culture Received Blood Peripheral Pending 06/04/17 19:36 Anaerobic Blood Culture Received Blood Peripheral Pending Administered Medications Medications (Trade) Dose Ordered Sig/Maritza Route PRN Reason Start Time Stop Time Status Last Admin Dose Admin Sodium Chloride (NS Flush) 2 ml UNSCH PRN IV FLUSH FLUSH AFTER USING IV ACCESS 05/10/17 15:00 05/15/17 03:47 Sodium Chloride (NS Flush) 2 ml BID IV FLUSH 05/10/17 21:00 06/02/17 09:59 Acetaminophen (Tylenol) 650 mg Q4H PRN PO TEMP > 100.4 OR PREMEDICATION FOR BLOOD PRODUCT 05/10/17 15:00 06/05/17 00:38 Ondansetron HCl (Zofran Inj) 4 mg Q6H PRN IVP NAUSEA OR VOMITING 05/10/17 15:00 05/23/17 22:50 Senna/Docusate Sodium (Cinthia-Colace) 1 tab BID PO 05/10/17 21:00 05/20/17 08:18 Amlodipine Besylate (Norvasc) 5 mg DAILY PO 05/11/17 09:00 Hold 05/14/17 10:17 Atorvastatin Calcium (Lipitor) 20 mg DAILY PO 05/11/17 09:00 06/04/17 08:51 Lisinopril (Prinivil) 20 mg DAILY PO 05/11/17 09:00 Hold 05/26/17 09:43 Oxycodone HCl 5 mg 5 mg Q4H PRN PO PAIN SCALE 3 TO 5 05/11/17 12:00 05/12/17 01:23 Sodium Chloride (NS 1000 ml Inj) 1,000 ml @ 30 mls/hr Q24H IV 05/15/17 12:00 06/05/17 04:00 Diphenhydramine HCl (Benadryl) 25 mg Q4H PRN PO PRE-MEDICATE FOR BLOOD PRODUCT 05/15/17 15:30 06/05/17 00:36 Sodium Chloride (NS Flush) DAILY IVF 05/19/17 09:00 06/04/17 13:05 Heparin Sodium (Porcine) (Heparin Central Flush) DAILY IV FLUSH 05/19/17 09:00 05/25/17 09:38 Metoprolol Tartrate (Lopressor) 25 mg Q8H PO 05/29/17 17:00 06/05/17 00:37 Nystatin 5 ml 5 ml QID SWISH-SWAL 05/31/17 09:00 06/04/17 20:39 Vancomycin HCl 1000 mg/Sodium Chloride 250 ml @ 250 mls/hr Q12H IV 06/04/17 09:00 06/04/17 20:37 Cefepime HCl/ Sodium Chloride (Maxipime Inj/NS Inj) 100 ml @ 200 mls/hr Q8H IV 06/05/17 00:00 06/05/17 00:36 Objective Remarks GENERAL: Pleasant male, upright in bed in nad SKIN: Warm and dry. Interval removal of Jang catheter from the right chest wall. Erythema and swelling in the distal portion of the left forearm at the site of a previous IV line. HEAD: Normocephalic. EYES: No injection or drainage. Nose: Dried blood in the nares bilaterally. No active bleeding noted. NECK: Supple, trachea midline. CARDIOVASCULAR: +S1/S2, no obvious murmurs or gallops. RESPIRATORY: Breath sounds equal bilaterally. No accessory muscle use. GASTROINTESTINAL: Abdomen soft, non-tender, nondistended. EXTREMITIES: No cyanosis, area of erythema, swelling and redness on the distal left forearm at the site of previous IV placement. NEUROLOGICAL: awake and alert. normal speech. moving all extremities. 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 Started on induction systemic chemotherapy with idarubicin/cytarabine (3+7) on . Induction completed on 05/23/2017. (2) Neutropenic fever Status: Acute Plan: --Levaquin stopped 05/27 --Blood cultures and urine cultures are negative to date. -- Cefepime started on 06/02/17 for erythematous thrombophlebitis to L wrist. (3) Hyperbilirubinemia Status: Acute Plan: --combination of direct and indirect elevated. --unclear etiology --hepatitis panel is negative. (4) Respiratory insufficiency Status: Resolved Plan: --CXR, 05/23, shows improvement --pulmonology following --CT chest shows alveolar infiltrates. --on duonebs PRN --Lasix PRN (5) Atrial fibrillation Status: Acute Plan: --rate controlled on metoprolol Assessment 66y/o male with newly diagnosed AMML. Plan 1. D23 following initiation of idarubicin and cytarabine induction remission systemic therapy. His counts are improving, platelet count and hemoglobin are both improved. I have requested CT-guided bone marrow biopsy later today for restaging purposes. 2. Continue transfusion support with red cells and platelets on an as-needed basis though his counts seem to be recovering. 3. US showed thrombophlebitis of L wrist. On cefepime and vancomycin for empiric coverage given the appearance of cellulitis. 4. Isolated temperature 100.9F yesterday afternoon, he is on empiric antibiotic therapy with cefepime and vancomycin, cultures were drawn no growth to date. Disposition: Counts improving indicating marrow recovery. Continue empiric antibiotic therapy. Bone marrow biopsy for restaging today. Should he be in remission and should his counts continue to improve he may be ready for discharge and the upcoming 4 - 5 days. Problem Qualifiers (1) Acute myelomonocytic leukemia: Qualified Code: C92.50 - Acute myelomonocytic leukemia not having achieved remission Dwain Diez MD Jun 05, 2017 07:59
[2017-06-05 08:59] LABS: SCAN/DIFF FINAL DIFF MANUAL; WBC DIFF SAMPLE 5
[2017-06-05 09:00] LABS: PLATELET ESTIMATE SMEAR LOW (NORMAL); PLATELET MORPHOLOGY ENLARGED (NORMAL)
[2017-06-05] MEDS: DOCUSATE SODIUM 50 MG/SENNA 8.6 MG TAB PO SCH ×2 (09:00→21:00)
[2017-06-05] MEDS: SODIUM CHLORIDE 0.9% FLUSH 10 ML FLUSH IV FLUSH SCH ×2 (09:00→21:00)
[2017-06-05] MEDS: SODIUM CHLORIDE 0.9% FLUSH 10 ML FLUSH IVF SCH (09:00)
[2017-06-05] MEDS: NYSTATIN SUSP 500,000 U/5 ML CUP SWISH-SWAL SCH ×4 (10:25→22:09)
[2017-06-05] MEDS: ATORVASTATIN 20 MG TAB PO SCH (10:25)
[2017-06-05] MEDS: VANCOMYCIN INJ 1,000 MG in SODIUM CHLOR 0.9% 250 ML INJ 250 ML IV SCH ×2 (10:29→22:10)
--- NOTE | 2017-06-05 11:15 | HHI.PR ---
Subjective Remarks Follow-up AMML/left axilla cellulitis/left arm cellulitis/thrombophlebitis left upper extremity 06/04/17-patient seen and examined; Tmax 100.0 however patient denies any chills. No acute event overnight. Plan for replacement of Jang catheter day 06/05/17-patient seen and examined, denies any chest pain or shortness of breath. MAXIMUM TEMPERATURE 99.7 at 4 AM however currently afebrile. Not much of an appetite Objective Vitals Vital Signs Date Time Temp Pulse Resp B/P Pulse Ox O2 Delivery O2 Flow Rate FiO2 06/05/17 08:00 98.6 90 20 126/76 98 06/05/17 04:27 89 06/05/17 04:05 99.7 92 16 127/84 96 06/05/17 02:05 98.5 86 16 111/62 95 06/05/17 01:45 99.0 65 15 109/60 95 06/05/17 00:30 98.8 101 18 138/69 97 06/05/17 00:00 81 06/04/17 21:01 96.6 99 18 101/66 96 06/04/17 20:45 77 06/04/17 20:45 Room Air 06/04/17 16:00 100.9 99 18 135/78 98 06/04/17 12:00 100.1 83 18 148/83 98 I/O 06/04/17 06/04/17 06/04/17 06/05/17 06/05/17 06/05/17 07:00 15:00 23:00 07:00 15:00 23:00 Intake Total 240 ml 1118 ml Output Total 150 ml 400 ml 225 ml Balance 90 ml 718 ml -225 ml Intake Oral 720 ml IV Total 240 ml 398 ml Output Urine Total 150 ml 400 ml 225 ml # Bowel Movements 1 Result Diagram: 06/05/17 0606/04/171930 Objective Remarks GENERAL: NAD SKIN: Warm and dry.some cellulitis to LUE without any drainage HEAD: Normocephalic. EYES: No scleral icterus. No injection or drainage. NECK: Supple, trachea midline. No JVD or lymphadenopathy. CARDIOVASCULAR: Regular rate and rhythm without murmurs, gallops, or rubs. RESPIRATORY: Breath sounds equal bilaterally. No accessory muscle use. GASTROINTESTINAL: Abdomen soft, non-tender, nondistended. MUSCULOSKELETAL: No cyanosis, or edema. BACK: Nontender without obvious deformity. No CVA tenderness. Procedures Echo 05/14/2017 CONCLUSIONS The left ventricular systolic function is normal with an estimated ejection fraction in the range of 55-60%. Wall thickness is measured at the upper limits of normal. The right ventricle is mildly dilated. Mild mitral valve regurgitation. There is trace tricuspid valve regurgitation. A/P Problem List: (1) Pancytopenia ICD Code: D61.818 Status: Acute (2) Macrocytic anemia ICD Code: D53.9 Status: Acute (3) Alcohol abuse ICD Code: F10.10 Status: Acute (4) S/P tympanic tube insertion ICD Code: Z96.22 Status: Acute (5) AML M5 (acute monocytic leukemia) ICD Code: C93.00 Status: Acute (6) Cellulitis ICD Code: L03.90 Status: Acute (7) Neutropenic fever ICD Code: D70.9 Status: Acute Assessment and Plan 66-year-old man with Acute myelomonocytic anemia - Management per medical oncology - Induction chemotherapy completed 05/23/2017. S/p platelet transfusion. - Blood transfusion along with platelet transfusion per oncology -Bone marrow biopsy today 06/05/17 for restaging Left upper extremity phlebitis - Completed Levaquin therapy for axilla cellulitis Secondary to questionable cellulitis of left arm patient is currently on cefepime IV Neutropenic fever Continue with cefepime Neutropenic precautions Acute respiratory failure Pleural effusion Probable pneumonia Left axillary cellulitis - ID discontinued Vancomycin. - Currently on cefepime as in above Hypertension Hyperlipidemia - Continue atorvastatin 20 mg and metoprolol - Hold Amlodipine and Lisinopril for now. Atrial fibrillation -continue metoprolol Dysphagia --on Nystatin per oncology Full code. SCDs. Discharge Planning Likely discharge when clear by hematology/oncology in 4-5 days Sebastián Osborne MD Jun 05, 2017 11:14
[2017-06-05] MEDS ORDERED: LIDOCAINE 1%/EPINEPHrine 1:100,000 SOLN 20 ML VIAL ONE (12:27)
[2017-06-05] MEDS ORDERED: fentaNYL CITRATE 250 MCG/5 ML AMP ONE (13:19)
[2017-06-05] MEDS ORDERED: MIDAZOLAM HCL 5 MG/5 ML VIAL ONE (13:19)
--- NOTE | 2017-06-05 14:13 | PD.RAD ---
Post CT Procedure Prog Note Pre Procedure Diagnosis: (1) AML M5 (acute monocytic leukemia) Post Procedure Diagnosis: Procedure Date: Jun 05, 2017 Supervising Radiologist: Sebastián Pratt Proceduralist/Assist: gaby Kennedy Anesthesia: Conscious Sedation Plan of Activity Patient to Unit: [facility] Patient Condition: Good See PACS Report for procedural detail/treatment Sebastián Pratt MD Jun 05, 2017 14:13
--- NOTE | 2017-06-05 16:17 | RADRPT ---
EXAM DATE/TIME: 06/05/2017 13:49 [facility] COMPARISON: No previous studies available for comparison. INDICATIONS : Acute myelomonocytic leukemia. SEDATION TIME: 30 minutes BIOPSY SITE: Right MEDICATION(S): 1.) 2 mg midazolam (Versed) IV 2.) 100 mcg fentanyl (Sublimaze) IV DEVICE(S): 1.) 11 gauge Bone biopsy needle MEDICAL HISTORY : Cardiovascular disease. Hypertension. SURGICAL HISTORY : Appendectomy. ENCOUNTER: Initial ACUITY: 1 day PAIN SCORE: 0/10 LOCATION: Right A total of one core specimen(s) were obtained and sent to the laboratory for pathologic evaluation. PROCEDURE: 1. CT guided bone marrow biopsy. 2. Conscious sedation with continuous EKG and oximetry monitoring. 3. EKG and oximetry remained stable throughout the procedure. Prior to the procedure informed consent was obtained. Any appropriate prior imaging studies were rev iewed. Using automated exposure control and adjustment of the mA and/or kV according to patient size , radiation dose was kept as low as reasonably achievable to obtain optimal diagnostic quality images . DICOM format image data is available electronically for review and comparison. The site was prepped in a sterile fashion. Full sterile technique was used, including cap, mask, george rile gloves and gown and a large sterile sheet. Hand hygiene and 2% chlorhexidine and/or betadine/al cohol prep was utilized per protocol for cutaneous antisepsis. The skin and subcutaneous tissues wer e infiltrated with local anesthetic solution. With CT guidance the previously identified target was localized. Biopsy was performed using the presc ribed needle as above. Following biopsy marrow aspiration was performed with repeat puncture. [place]qua te hemostasis was obtained with compression at the puncture site. Follow-up CT scan reveals no hemorrhage. Conscious sedation was performed with the prescribed dosages and duration as above in the presence of an independent trained radiology nurse to assist in the monitoring of the patient. EKG and oximetry remained stable throughout the procedure. The patient tolerated the procedure well and there were no complications. The patient was sent to Radiology Outpatient Unit in stable condition. CONCLUSION: 1. Uncomplicated CT guided bone marrow aspirate. 2. Uncomplicated CT guided bone marrow biopsy. Sebastián Pratt MD on June 05, 2017 at 16:15 Board Certified Radiologist. This report was verified electronically.
[2017-06-05 17:46] LABS: BONE MARROW PROCESSING COMPLETE; IRON STAIN DONE; JENNER GIEMSA STAIN DONE
--- NOTE | 2017-06-05 19:11 | HHI.PR ---
Subjective Remarks 66 YOWM with ac Monomyelocytik leuk, bilat infilt No hemoptysis Low grade bx Had bone bx Appetite poor Objective Vital Signs Vital Signs Date Time Temp Pulse Resp B/P Pulse Ox O2 Delivery O2 Flow Rate FiO2 06/05/17 16:00 99.4 87 18 120/67 97 06/05/17 14:55 98 18 129/66 99 06/05/17 14:25 99.7 106 19 110/53 97 06/05/17 12:00 97.8 90 127/76 97 06/05/17 10:23 Room Air 06/05/17 08:00 98.6 90 20 126/76 98 06/05/17 04:27 89 06/05/17 04:05 99.7 92 16 127/84 96 06/05/17 02:05 98.5 86 16 111/62 95 06/05/17 01:45 99.0 65 15 109/60 95 06/05/17 00:30 98.8 101 18 138/69 97 06/05/17 00:00 81 06/04/17 21:01 96.6 99 18 101/66 96 06/04/17 20:45 77 06/04/17 20:45 Room Air I/O 06/04/17 06/04/17 06/04/17 06/05/17 06/05/17 06/05/17 07:00 15:00 23:00 07:00 15:00 23:00 Intake Total 240 ml 1118 ml 0 ml Output Total 150 ml 400 ml 225 ml 300 ml Balance 90 ml 718 ml -225 ml -300 ml Intake Oral 720 ml 0 ml IV Total 240 ml 398 ml Output Urine Total 150 ml 400 ml 225 ml 300 ml # Voids 3 # Bowel Movements 1 0 Result Diagram: 06/05/17 0607 06/04/171930 Objective Remarks GENERAL: WMWN WM, NAD SKIN: Warm and dry. HEAD: Normocephalic. EYES: No scleral icterus. No injection or drainage. NECK: Supple, trachea midline. No JVD or lymphadenopathy. CARDIOVASCULAR: Regular rate and rhythm without murmurs, gallops, or rubs. RESPIRATORY: Breath sounds equal bilaterally. No accessory muscle use. GASTROINTESTINAL: Abdomen soft, non-tender, nondistended. MUSCULOSKELETAL: No cyanosis, or edema. BACK: Nontender without obvious deformity. No CVA tenderness. A/P Assessment and Plan Bilat Infilt Pleural effusion mild Hemoptysis Ac Monomyelocytic Leukemia Pancytopenia PLAN" Cont Abx per ID monitor pl fluid Supplement 02 Monitor CBC Encourage PO Stable from pulm standpoint Donald Mayo MD Jun 05, 2017 19:11
[2017-06-06] VITALS (8 sets, daily range): BP systolic 101–121; BP diastolic 57–76; PULSE 79–106; RESP 16–20; TEMP 98.1–99.6; O2SAT 93–97
[2017-06-06] MEDS: CEFEPIME INJ 2,000 MG in SODIUM CHLORIDE 0.9% INJ 100 ML IV SCH ×3 (00:33→16:36)
[2017-06-06] MEDS: METOPROLOL TARTRATE 25 MG TAB PO SCH ×3 (01:17→16:32)
[2017-06-06] MEDS: SODIUM CHLOR 0.9% 1000 ML INJ 1,000 ML IV SCH (06:11)
[2017-06-06] MEDS: ONDANSETRON HCL 4 MG/2 ML VIAL IVP PRN (06:11)
[2017-06-06] MEDS: INSULIN ASPART SUPPLEMENTAL SCALE SQ SCH ×2 (06:16→16:00)
[2017-06-06] MEDS: ACETAMINOPHEN 325 MG TAB PO PRN (06:20)
--- NOTE | 2017-06-06 06:42 | PD.ONC.PN ---
Subjective Subjective Remarks Subjectively patient reports feeling nauseated this morning, had a somewhat loose bowel movement this morning but says it was not diarrhea. Denies having had fevers or chills over the past 24 hours. He underwent bone marrow biopsy with marrow aspiration yesterday without any difficulties. Objective Data Date Time Temp Pulse Resp B/P Pulse Ox O2 Delivery O2 Flow Rate FiO2 06/06/17 04:00 99.3 97 16 105/61 95 06/06/17 00:00 99.6 106 16 113/57 93 06/05/17 20:00 99.5 96 16 131/79 100 06/05/17 16:00 99.4 87 18 120/67 97 06/05/17 14:55 98 18 129/66 99 06/05/17 14:25 99.7 106 19 110/53 97 06/05/17 12:00 97.8 90 127/76 97 06/05/17 10:23 Room Air 06/05/17 08:00 98.6 90 20 126/76 98 Result Diagram: 06/05/17 0606/04/17 1931 Culture Results Microbiology Date/Time Procedure Status Source Growth 06/04/17 19:31 Aerobic Blood Culture - Preliminary Resulted Blood Peripheral NO GROWTH IN 1 DAY 06/04/17 19:31 Anaerobic Blood Culture - Preliminary Resulted Blood Peripheral NO GROWTH IN 1 DAY 06/04/17 19:36 Aerobic Blood Culture - Preliminary Resulted Blood Peripheral NO GROWTH IN 1 DAY 06/04/17 19:36 Anaerobic Blood Culture - Preliminary Resulted Blood Peripheral NO GROWTH IN 1 DAY Administered Medications Medications (Trade) Dose Ordered Sig/Maritza Route PRN Reason Start Time Stop Time Status Last Admin Dose Admin Sodium Chloride (NS Flush) 2 ml UNSCH PRN IV FLUSH FLUSH AFTER USING IV ACCESS 05/10/17 15:00 05/15/17 03:47 Sodium Chloride (NS Flush) 2 ml BID IV FLUSH 05/10/17 21:00 06/02/17 09:59 Acetaminophen (Tylenol) 650 mg Q4H PRN PO TEMP > 100.4 OR PREMEDICATION FOR BLOOD PRODUCT 05/10/17 15:00 06/06/17 06:20 Ondansetron HCl (Zofran Inj) 4 mg Q6H PRN IVP NAUSEA OR VOMITING 05/10/17 15:00 06/06/17 06:11 Senna/Docusate Sodium (Cinthia-Colace) 1 tab BID PO 05/10/17 21:00 05/20/17 08:18 Amlodipine Besylate (Norvasc) 5 mg DAILY PO 05/11/17 09:00 Hold 05/14/17 10:17 Atorvastatin Calcium (Lipitor) 20 mg DAILY PO 05/11/17 09:00 06/05/17 10:25 Lisinopril (Prinivil) 20 mg DAILY PO 05/11/17 09:00 Hold 05/26/17 09:43 Oxycodone HCl 5 mg 5 mg Q4H PRN PO PAIN SCALE 3 TO 5 05/11/17 12:00 05/12/17 01:23 Sodium Chloride (NS 1000 ml Inj) 1,000 ml @ 30 mls/hr Q24H IV 05/15/17 12:00 06/06/17 06:11 Diphenhydramine HCl (Benadryl) 25 mg Q4H PRN PO PRE-MEDICATE FOR BLOOD PRODUCT 05/15/17 15:30 06/05/17 00:36 Sodium Chloride (NS Flush) DAILY IVF 05/19/17 09:00 06/04/17 13:05 Heparin Sodium (Porcine) (Heparin Central Flush) DAILY IV FLUSH 05/19/17 09:00 05/25/17 09:38 Metoprolol Tartrate (Lopressor) 25 mg Q8H PO 05/29/17 17:00 06/06/17 01:17 Nystatin 5 ml 5 ml QID SWISH-SWAL 05/31/17 09:00 06/05/17 22:09 Vancomycin HCl 1000 mg/Sodium Chloride 250 ml @ 250 mls/hr Q12H IV 06/04/17 09:00 06/05/17 22:10 Cefepime HCl/ Sodium Chloride (Maxipime Inj/NS Inj) 100 ml @ 200 mls/hr Q8H IV 06/05/17 00:00 06/06/17 00:33 Objective Remarks GENERAL: Pleasant male, upright in bed in nad SKIN: Warm and dry. Interval removal of Jang catheter from the right chest wall. Erythema and swelling in the distal portion of the left forearm at the site of a previous IV line. HEAD: Normocephalic. EYES: No injection or drainage. Nose: Dried blood in the nares bilaterally. No active bleeding noted. NECK: Supple, trachea midline. CARDIOVASCULAR: +S1/S2, no obvious murmurs or gallops. RESPIRATORY: Breath sounds equal bilaterally. No accessory muscle use. GASTROINTESTINAL: Abdomen soft, non-tender, nondistended. EXTREMITIES: No cyanosis, area of erythema, swelling and redness on the distal left forearm at the site of previous IV placement. NEUROLOGICAL: awake and alert. normal speech. moving all extremities. 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 Started on induction systemic chemotherapy with idarubicin/cytarabine (3+7) on . Induction completed on 05/23/2017. (2) Neutropenic fever Status: Acute Plan: --Levaquin stopped 05/27 --Blood cultures and urine cultures are negative to date. -- Cefepime started on 06/02/17 for erythematous thrombophlebitis to L wrist. (3) Hyperbilirubinemia Status: Acute Plan: --combination of direct and indirect elevated. --unclear etiology --hepatitis panel is negative. (4) Respiratory insufficiency Status: Resolved Plan: --CXR, 05/23, shows improvement --pulmonology following --CT chest shows alveolar infiltrates. --on duonebs PRN --Lasix PRN (5) Atrial fibrillation Status: Acute Plan: --rate controlled on metoprolol Assessment 66y/o male with newly diagnosed AMML. Plan 1. Day 24 following initiation of idarubicin and cytarabine induction remission systemic therapy. His counts are improving, platelet count and hemoglobin are both improved. Await results of restaging bone marrow biopsy. 2. Continue transfusion support with red cells and platelets on an as-needed basis though his counts seem to be recovering. 3. US showed thrombophlebitis of L wrist. On cefepime and vancomycin for empiric coverage given the appearance of cellulitis. 4. Isolated temperature 100.9F yesterday afternoon, he is on empiric antibiotic therapy with cefepime and vancomycin, cultures were drawn no growth to date. Disposition: Counts improving indicating marrow recovery. Continue empiric antibiotic therapy. Restaging Bone marrow biopsy performed on 06/05/2017. Should he be in remission and should his counts continue to improve he may be ready for discharge and the upcoming 3-4 days. Problem Qualifiers (1) Acute myelomonocytic leukemia: Qualified Code: C92.50 - Acute myelomonocytic leukemia not having achieved remission Dwain Diez MD Jun 06, 2017 06:42
[2017-06-06] MEDS: SODIUM CHLORIDE 0.9% FLUSH 10 ML FLUSH IV FLUSH SCH ×2 (09:00→21:58)
[2017-06-06] MEDS: SODIUM CHLORIDE 0.9% FLUSH 10 ML FLUSH IVF SCH (09:00)
[2017-06-06] MEDS: DOCUSATE SODIUM 50 MG/SENNA 8.6 MG TAB PO SCH ×2 (10:23→21:00)
[2017-06-06] MEDS: NYSTATIN SUSP 500,000 U/5 ML CUP SWISH-SWAL SCH ×5 (10:23→21:58)
[2017-06-06] MEDS: ATORVASTATIN 20 MG TAB PO SCH (10:23)
[2017-06-06] MEDS: VANCOMYCIN INJ 1,000 MG in SODIUM CHLOR 0.9% 250 ML INJ 250 ML IV SCH ×2 (10:45→21:58)
--- NOTE | 2017-06-06 18:24 | HHI.PR ---
Subjective Remarks 66 YOWM with ac Monomyelocytik leuk, bilat infilt No hemoptysis Low grade bx Appetite poor No fever Objective Vital Signs Vital Signs Date Time Temp Pulse Resp B/P Pulse Ox O2 Delivery O2 Flow Rate FiO2 06/06/17 16:22 98.3 97 20 121/65 96 06/06/17 12:35 98.1 87 20 108/61 97 06/06/17 08:00 99.2 104 20 101/76 94 06/06/17 04:00 99.3 97 16 105/61 95 06/06/17 00:00 99.6 106 16 113/57 93 06/05/17 20:00 99.5 96 16 131/79 100 I/O 06/05/17 06/05/17 06/05/17 06/06/17 06/06/17 06/06/17 07:00 15:00 23:00 07:00 15:00 23:00 Intake Total 423 ml 250 ml 300 ml 600 ml Output Total 300 ml 300 ml 800 ml Balance 123 ml -50 ml -500 ml 600 ml Intake Oral 0 ml 250 ml 300 ml 600 ml IV Total 423 ml Output Urine Total 300 ml 300 ml 800 ml # Voids 3 3 # Bowel Movements 0 0 2 Result Diagram: 06/05/17 0607 06/04/171930 Objective Remarks GENERAL: WMWN WM, NAD SKIN: Warm and dry. HEAD: Normocephalic. EYES: No scleral icterus. No injection or drainage. NECK: Supple, trachea midline. No JVD or lymphadenopathy. CARDIOVASCULAR: Regular rate and rhythm without murmurs, gallops, or rubs. RESPIRATORY: Breath sounds equal bilaterally. No accessory muscle use. GASTROINTESTINAL: Abdomen soft, non-tender, nondistended. MUSCULOSKELETAL: No cyanosis, or edema. BACK: Nontender without obvious deformity. No CVA tenderness. A/P Assessment and Plan Bilat Infilt Pleural effusion mild Hemoptysis Ac Monomyelocytic Leukemia Pancytopenia PLAN" Cont Abx per ID monitor pl fluid Supplement 02 Monitor CBC Encourage PO Donald Mayo MD Jun 06, 2017 18:24
--- NOTE | 2017-06-06 18:30 | HHI.PR ---
Subjective Remarks Denies cp/sob some nausea this am, however now better Status post bone marrow biopsy with marrow aspiration yesterday without any difficulties Vital signs stable. Objective Vitals Vital Signs Date Time Temp Pulse Resp B/P Pulse Ox O2 Delivery O2 Flow Rate FiO2 06/06/17 16:22 98.3 97 20 121/65 96 06/06/17 12:35 98.1 87 20 108/61 97 06/06/17 08:00 99.2 104 20 101/76 94 06/06/17 04:00 99.3 97 16 105/61 95 06/06/17 00:00 99.6 106 16 113/57 93 06/05/17 20:00 99.5 96 16 131/79 100 I/O 06/05/17 06/05/17 06/05/17 06/06/17 06/06/17 06/06/17 07:00 15:00 23:00 07:00 15:00 23:00 Intake Total 423 ml 250 ml 300 ml 600 ml Output Total 300 ml 300 ml 800 ml Balance 123 ml -50 ml -500 ml 600 ml Intake Oral 0 ml 250 ml 300 ml 600 ml IV Total 423 ml Output Urine Total 300 ml 300 ml 800 ml # Voids 3 3 # Bowel Movements 0 0 2 Result Diagram: 06/05/17 0607 06/04/17 1931 Imaging Last Impressions Bone Biopsy CT 06/05/17 0000 Signed Impressions: Service Date/Time: Monday, June 05, 2017 13:49 - CONCLUSION: 1. Uncomplicated CT guided bone marrow aspirate. 2. Uncomplicated CT guided bone marrow biopsy. Sebastián Pratt MD Central Venous Line 06/04/17 0751 Signed Impressions: Service Date/Time: Sunday, June 04, 2017 07:51 - CONCLUSION: Uncomplicated Jang removal. Ruben Nicole Jr., MD Upper Extremity Ultrasound 06/02/17 0000 Signed Impressions: Service Date/Time: Friday, June 02, 2017 15:46 - CONCLUSION: Thrombophlebitis. Virginia Denney MD Chest X-Ray 05/23/17 0000 Signed Impressions: Service Date/Time: Tuesday, May 23, 2017 11:16 - CONCLUSION: Interval improvement when compared to 7. Ryan Hoover MD FACR Catheter Placement X-Ray 05/18/17 0000 Signed Impressions: Service Date/Time: Thursday, May 18, 2017 16:40 - CONCLUSION: Uncomplicated ultrasound and fluoroscopic guided dual lumen Jang catheter implantation as described. Emerson Carrasquillo MD Chest CT 05/17/17 0000 Signed Impressions: Service Date/Time: April 17:53 - CONCLUSION: 1. Bilateral alveolar infiltrates most characteristic of pulmonary edema. 2. Small to moderate bilateral pleural effusions. 3. Small amount of pericardial fluid. 4. Coronary artery calcifications. 5. Prominent left lobe of the thyroid with low attenuation nodular area. Braxton Tidwell MD Soft Tissue Ultrasound 05/11/17 0000 Signed Impressions: Service Date/Time: Thursday, May 11, 2017 08:27 - CONCLUSION: Negative for abscess. Edematous changes in the soft tissues of the left axilla. Hank Nixon MD Objective Remarks GENERAL: NAD SKIN: Warm and dry.some cellulitis to LUE without any drainage HEAD: Normocephalic. EYES: No scleral icterus. No injection or drainage. NECK: Supple, trachea midline. No JVD or lymphadenopathy. CARDIOVASCULAR: Regular rate and rhythm without murmurs, gallops, or rubs. RESPIRATORY: Breath sounds equal bilaterally. No accessory muscle use. GASTROINTESTINAL: Abdomen soft, non-tender, nondistended. MUSCULOSKELETAL: No cyanosis, or edema. BACK: Nontender without obvious deformity. No CVA tenderness. Procedures Echo 05/14/2017 CONCLUSIONS The left ventricular systolic function is normal with an estimated ejection fraction in the range of 55-60%. Wall thickness is measured at the upper limits of normal. The right ventricle is mildly dilated. Mild mitral valve regurgitation. There is trace tricuspid valve regurgitation. Medications and IVs Current Medications Medications (Trade) Dose Ordered Sig/Maritza Route Start Time Stop Time Status Last Admin (NS Flush) 2 ml UNSCH PRN IV FLUSH 05/10/17 15:00 05/15/17 03:47 (NS Flush) 2 ml BID IV FLUSH 05/10/17 21:00 06/02/17 09:59 (Tylenol) 650 mg Q4H PRN PO 05/10/17 15:00 06/06/17 06:20 (Zofran Inj) 4 mg Q6H PRN IVP 05/10/17 15:00 06/06/17 06:11 (Cinthia-Colace) 1 tab BID PO 05/10/17 21:00 06/06/17 10:23 (Milk Of Magnesia Liq) 30 ml Q12H PRN PO 05/10/17 15:00 (Senokot) 17.2 mg Q12H PRN PO 05/10/17 15:00 (Dulcolax Supp) 10 mg DAILY PRN RECTAL 05/10/17 15:00 (Lactulose Liq) 30 ml DAILY PRN PO 05/10/17 15:00 (Norvasc) 5 mg DAILY PO 05/11/17 09:00 Hold 05/14/17 10:17 (Lipitor) 20 mg DAILY PO 05/11/17 09:00 06/06/17 10:23 (Prinivil) 20 mg DAILY PO 05/11/17 09:00 Hold 05/26/17 09:43 (Roxicodone) 5 mg Q4H PRN PO 05/11/17 12:00 05/12/17 01:23 (Roxicodone) 10 mg Q6H PRN PO 05/11/17 12:00 (Pill Splitter) 1 ea UNSCH PRN OTHER 05/14/17 12:15 Sodium Chloride 5 ml 5 ml UNSCH PRN IV FLUSH 05/14/17 23:30 (NS 1000 ml Inj) 1,000 ml @ 30 mls/hr Q24H IV 05/15/17 12:00 06/06/17 06:11 (Benadryl) 25 mg Q4H PRN PO 05/15/17 15:30 06/05/17 00:36 (D50w (Vial) Inj) 25 ml UNSCH PRN IV PUSH 05/17/17 11:30 (Glucagon Inj) 1 mg UNSCH PRN OTHER 05/17/17 11:30 (NS Flush) DAILY IVF 05/19/17 09:00 06/04/17 13:05 (Heparin Central Flush) DAILY IV FLUSH 05/19/17 09:00 05/25/17 09:38 (NS Flush) UNSCH PRN IVF 05/18/17 18:00 (Heparin Central Flush) UNSCH PRN IV FLUSH 05/18/17 18:00 (NovoLOG SUPPLEMENTAL SCALE) 1 BIDAC SQ 05/29/17 07:00 (Lopressor) 25 mg Q8H PO 05/29/17 17:00 06/06/17 16:32 ([place]) 2 spray Q4H PRN EACH NARE 05/31/17 08:30 Nystatin 5 ml 5 ml QID SWISH-SWAL 05/31/17 09:00 06/06/17 16:37 Vancomycin HCl 1000 mg/Sodium Chloride 250 ml @ 250 mls/hr Q12H IV 06/04/17 09:00 06/06/17 10:45 (Maxipime Inj/NS Inj) 100 ml @ 200 mls/hr Q8H IV 06/05/17 00:00 06/06/17 16:36 A/P Problem List: (1) Pancytopenia ICD Code: D61.818 Status: Acute (2) Macrocytic anemia ICD Code: D53.9 Status: Acute (3) Alcohol abuse ICD Code: F10.10 Status: Acute (4) S/P tympanic tube insertion ICD Code: Z96.22 Status: Acute (5) AML M5 (acute monocytic leukemia) ICD Code: C93.00 Status: Acute (6) Cellulitis ICD Code: L03.90 Status: Acute (7) Neutropenic fever ICD Code: D70.9 Status: Acute Assessment and Plan 66-year-old man with Acute myelomonocytic anemia - Management per medical oncology - Induction chemotherapy completed 05/23/2017. S/p platelet transfusion. -Continue sufficient support with red cells and platelets on an as-needed basis through his counts would seem to be recovering. -Bone marrow biopsy 06/05/17 for restaging Left upper extremity phlebitis - Completed Levaquin therapy for axilla cellulitis On cefepime and vancomycin IV for empiric coverage given the presence of cellulitis. Neutropenic fever Continue with cefepime Neutropenic precautions Patient had a MAXIMUM TEMPERATURE of 100.9 yesterday afternoon, he is on empiric antibiotic therapy with cefepime and vancomycin, cultures were drawn and there is no growth to date. Acute respiratory failure Pleural effusion Probable pneumonia Left axillary cellulitis - ID discontinued Vancomycin. - Currently on cefepime as in above Hypertension Hyperlipidemia - Continue atorvastatin 20 mg and metoprolol - Hold Amlodipine and Lisinopril for now. Atrial fibrillation -continue metoprolol - Seems to be rate controlled Dysphagia --on Nystatin per oncology Full code. SCDs. Discharge Planning Possible discharge in the coming 3-4 days should he be in remission and should his counts continue to improve pending oncology clearance. Deven Montgomery MD Jun 06, 2017 18:30
[2017-06-06 21:13] LABS: MEAN CORPUSCULAR HGB CONC 36.1 % (32.0-36.0)
[2017-06-07] VITALS (8 sets, daily range): BP systolic 101–133; BP diastolic 56–75; PULSE 83–103; RESP 16; TEMP 96.2–99; O2SAT 96–99
[2017-06-07] MEDS: METOPROLOL TARTRATE 25 MG TAB PO SCH ×3 (00:07→17:23)
[2017-06-07] MEDS: CEFEPIME INJ 2,000 MG in SODIUM CHLORIDE 0.9% INJ 100 ML IV SCH ×3 (00:07→17:22)
[2017-06-07] MEDS: INSULIN ASPART SUPPLEMENTAL SCALE SQ SCH ×2 (05:41→16:00)
[2017-06-07] MEDS: SODIUM CHLOR 0.9% 1000 ML INJ 1,000 ML IV SCH (05:41)
[2017-06-07 08:35] LABS: BASOPHIL % 0.2 % (0.0-2.0); EOSINOPHIL % 0.1 % (0.0-4.0); HEMATOCRIT 24.8 % (39.0-51.0); LYMPH % 23.4 % (9.0-44.0); LYMPHOCYTE # 0.5 TH/MM3 (1.0-4.8); MEAN CELL VOLUME 83.1 FL (80.0-100.0); MONO % 28.4 % (0.0-8.0); NEUT % 47.9 % (16.0-70.0); PLATELET COUNT 306 TH/MM3 (150-450); RED BLOOD COUNT 2.98 MIL/MM3 (4.50-5.90); RED CELL DISTRIBUTION WIDTH 14.7 % (11.6-17.2); WHITE BLOOD COUNT 2.1 TH/MM3 (4.0-11.0)
--- NOTE | 2017-06-07 08:40 | PD.ONC.PN ---
Subjective Subjective Remarks Patient reports feeling well, he is looking forward to going home tomorrow. Reports some tenderness and pain along the left forearm area cellulitis and edema. Denies difficulty breathing, fevers, chills, night sweats, overt bleeding. Objective Data Date Time Temp Pulse Resp B/P Pulse Ox O2 Delivery O2 Flow Rate FiO2 06/07/17 04:07 97.5 92 16 111/66 98 06/07/17 00:00 99.0 96 16 121/ 97 06/06/17 20:25 91 06/06/17 20:00 98.6 84 16 116/64 95 06/06/17 16:22 98.3 97 20 121/65 96 06/06/17 12:35 98.1 87 20 108/61 97 06/06/17 09:00 Room Air 06/06/17 09:00 79 06/07/17 06/07/17 06/07/17 06:59 14:59 22:59 Intake Total 260 ml Output Total 550 ml Balance -290 ml Result Diagram: 06/05/17 0607 06/04/17 193 Culture Results Microbiology Date/Time Procedure Status Source Growth 06/04/17 19:31 Aerobic Blood Culture - Preliminary Resulted Blood Peripheral NO GROWTH IN 2 DAYS 06/04/17 19:31 Anaerobic Blood Culture - Preliminary Resulted Blood Peripheral NO GROWTH IN 2 DAYS 06/04/17 19:36 Aerobic Blood Culture - Preliminary Resulted Blood Peripheral NO GROWTH IN 2 DAYS 06/04/17 19:36 Anaerobic Blood Culture - Preliminary Resulted Blood Peripheral NO GROWTH IN 2 DAYS Administered Medications Medications (Trade) Dose Ordered Sig/Maritza Route PRN Reason Start Time Stop Time Status Last Admin Dose Admin Sodium Chloride (NS Flush) 2 ml UNSCH PRN IV FLUSH FLUSH AFTER USING IV ACCESS 05/10/17 15:00 05/15/17 03:47 Sodium Chloride (NS Flush) 2 ml BID IV FLUSH 05/10/17 21:00 06/06/17 21:58 Acetaminophen (Tylenol) 650 mg Q4H PRN PO TEMP > 100.4 OR PREMEDICATION FOR BLOOD PRODUCT 05/10/17 15:00 06/06/17 06:20 Ondansetron HCl (Zofran Inj) 4 mg Q6H PRN IVP NAUSEA OR VOMITING 05/10/17 15:00 06/06/17 06:11 Senna/Docusate Sodium (Cinthia-Colace) 1 tab BID PO 05/10/17 21:00 06/06/17 10:23 Amlodipine Besylate (Norvasc) 5 mg DAILY PO 05/11/17 09:00 Hold 05/14/17 10:17 Atorvastatin Calcium (Lipitor) 20 mg DAILY PO 05/11/17 09:00 06/06/17 10:23 Lisinopril (Prinivil) 20 mg DAILY PO 05/11/17 09:00 Hold 05/26/17 09:43 Oxycodone HCl 5 mg 5 mg Q4H PRN PO PAIN SCALE 3 TO 5 05/11/17 12:00 05/12/17 01:23 Sodium Chloride (NS 1000 ml Inj) 1,000 ml @ 30 mls/hr Q24H IV 05/15/17 12:00 06/07/17 05:41 Diphenhydramine HCl (Benadryl) 25 mg Q4H PRN PO PRE-MEDICATE FOR BLOOD PRODUCT 05/15/17 15:30 06/05/17 00:36 Sodium Chloride (NS Flush) DAILY IVF 05/19/17 09:00 06/04/17 13:05 Heparin Sodium (Porcine) (Heparin Central Flush) DAILY IV FLUSH 05/19/17 09:00 05/25/17 09:38 Metoprolol Tartrate (Lopressor) 25 mg Q8H PO 05/29/17 17:00 06/07/17 00:07 Nystatin 5 ml 5 ml QID SWISH-SWAL 05/31/17 09:00 06/06/17 16:37 Vancomycin HCl 1000 mg/Sodium Chloride 250 ml @ 250 mls/hr Q12H IV 06/04/17 09:00 06/06/17 21:58 Cefepime HCl/ Sodium Chloride (Maxipime Inj/NS Inj) 100 ml @ 200 mls/hr Q8H IV 06/05/17 00:00 06/07/17 00:07 Objective Remarks GENERAL: Pleasant male, upright in bed in nad SKIN: Warm and dry. Interval removal of Jang catheter from the right chest wall. Erythema and swelling in the distal portion of the left forearm at the site of a previous IV line. HEAD: Normocephalic. EYES: No injection or drainage. Nose: Dried blood in the nares bilaterally. No active bleeding noted. NECK: Supple, trachea midline. CARDIOVASCULAR: +S1/S2, no obvious murmurs or gallops. RESPIRATORY: Breath sounds equal bilaterally. No accessory muscle use. GASTROINTESTINAL: Abdomen soft, non-tender, nondistended. EXTREMITIES: No cyanosis, area of erythema, swelling and redness on the distal left forearm at the site of previous IV placement. NEUROLOGICAL: awake and alert. normal speech. moving all extremities. 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 Started on induction systemic chemotherapy with idarubicin/cytarabine (3+7) on . Induction completed on 05/23/2017. (2) Neutropenic fever Status: Acute Plan: --Levaquin stopped 05/27 --Blood cultures and urine cultures are negative to date. -- Cefepime started on 06/02/17 for erythematous thrombophlebitis to L wrist. (3) Hyperbilirubinemia Status: Acute Plan: --combination of direct and indirect elevated. --unclear etiology --hepatitis panel is negative. (4) Respiratory insufficiency Status: Resolved Plan: --CXR, 05/23, shows improvement --pulmonology following --CT chest shows alveolar infiltrates. --on duonebs PRN --Lasix PRN (5) Atrial fibrillation Status: Acute Plan: --rate controlled on metoprolol Assessment 66y/o male with newly diagnosed AMML. Plan 1. Day 25 following initiation of idarubicin and cytarabine induction remission systemic therapy. His counts are improving, platelet count and hemoglobin are both improved. Await results of restaging bone marrow biopsy. 2. Continue transfusion support with red cells and platelets on an as-needed basis though his counts seem to be recovering. 3. US showed thrombophlebitis of L wrist. On cefepime and vancomycin for empiric coverage given the appearance of cellulitis. 4. Isolated temperature 100.9F yesterday afternoon, he is on empiric antibiotic therapy with cefepime and vancomycin, cultures were drawn no growth to date. Disposition: Await final bone marrow biopsy results. Flow cytometry results are noted, findings nonspecific, myeloblasts were noted to be at 11% however phenotypically these may be leukemic blasts or healthy blasts indicator for marrow recovery. Final bone marrow morphology will determine response to therapy. Clinically he is doing very well and should he be in remission, he should be ready for discharge in the next 24-48 hours. Problem Qualifiers (1) Acute myelomonocytic leukemia: Qualified Code: C92.50 - Acute myelomonocytic leukemia not having achieved remission Dwain Diez MD Jun 07, 2017 08:39
[2017-06-07 08:41] LABS: HEMO FLAGS AUTO DIFF
[2017-06-07 08:58] LABS: ANION GAP 11 MEQ/L (5-15); AST (GOT) 14 U/L (15-37); BICARBONATE 24.3 MEQ/L (21.0-32.0); BLOOD UREA NITROGEN 13 MG/DL (7-18); CHLORIDE 101 MEQ/L (98-107); GLOMERULAR FILTRATION RATE 135 ML/MIN (>89); POTASSIUM 3.5 MEQ/L (3.5-5.1); SODIUM (NA) 136 MEQ/L (136-145)
[2017-06-07 08:59] LABS: ALT (GPT) 19 U/L (12-78)
[2017-06-07] MEDS: SODIUM CHLORIDE 0.9% FLUSH 10 ML FLUSH IVF SCH (09:00)
[2017-06-07 09:01] LABS: ALKALINE PHOSPHATASE 113 U/L (45-117); TOTAL BILIRUBIN ADULT 0.7 MG/DL (0.2-1.0)
[2017-06-07 09:39] LABS: BANDS 6 % (0-6); CORRECTED NUCLEATED RBC 2 /100 WBC (0-0); METAMYELOCYTES 3 % (0-1); MYELOCYTES 8 % (0-0); NEUTROPHIL # MANUAL DIFF 1.1 TH/MM3 (1.8-7.7); POLYS (SEG NEUTROPHILS) 30 % (16-70); PROMYELOCYTES 4 % (0-0); WBC DIFF SAMPLE 100
[2017-06-07 09:40] LABS: PLATELET ESTIMATE SMEAR NORMAL (NORMAL); PLATELET MORPHOLOGY NORMAL (NORMAL); SCAN/DIFF FINAL DIFF MANUAL
[2017-06-07] MEDS: ATORVASTATIN 20 MG TAB PO SCH (10:13)
[2017-06-07] MEDS: NYSTATIN SUSP 500,000 U/5 ML CUP SWISH-SWAL SCH ×4 (10:13→20:31)
[2017-06-07] MEDS: DOCUSATE SODIUM 50 MG/SENNA 8.6 MG TAB PO SCH ×2 (10:13→20:53)
[2017-06-07] MEDS: SODIUM CHLORIDE 0.9% FLUSH 10 ML FLUSH IV FLUSH SCH ×2 (10:13→20:53)
--- NOTE | 2017-06-07 12:08 | HHI.PR ---
Subjective Remarks No major overnight events Patient denies chest pain or shortness of breath Denies diarrhea Afebrile Objective Vitals Vital Signs Date Time Temp Pulse Resp B/P Pulse Ox O2 Delivery O2 Flow Rate FiO2 06/07/17 08:00 98.0 88 16 125/74 96 06/07/17 04:07 97.5 92 16 111/66 98 06/07/17 00:00 99.0 96 16 121/ 97 06/06/17 20:25 91 06/06/17 20:00 98.6 84 16 116/64 95 06/06/17 16:22 98.3 97 20 121/65 96 06/06/17 12:35 98.1 87 20 108/61 97 I/O 06/06/17 06/06/17 06/06/17 06/07/17 06/07/17 06/07/17 07:00 15:00 23:00 07:00 15:00 23:00 Intake Total 300 ml 600 ml 250 ml 260 ml Output Total 800 ml 500 ml 550 ml Balance -500 ml 600 ml -250 ml -290 ml Intake Oral 300 ml 600 ml 250 ml 260 ml Output Urine Total 800 ml 500 ml 550 ml # Voids 3 # Bowel Movements 2 0 1 Result Diagram: 06/07/17 0706 06/07/17 0706 Imaging Last Impressions Bone Biopsy CT 06/05/17 0000 Signed Impressions: Service Date/Time: Monday, June 05, 2017 13:49 - CONCLUSION: 1. Uncomplicated CT guided bone marrow aspirate. 2. Uncomplicated CT guided bone marrow biopsy. Sebastián Pratt MD Central Venous Line 06/04/17 0751 Signed Impressions: Service Date/Time: Sunday, June 04, 2017 07:51 - CONCLUSION: Uncomplicated Jang removal. Ruben Nicole Jr., MD Upper Extremity Ultrasound 06/02/17 0000 Signed Impressions: Service Date/Time: Friday, June 02, 2017 15:46 - CONCLUSION: Thrombophlebitis. K. Rachid Denney MD Chest X-Ray 05/23/17 0000 Signed Impressions: Service Date/Time: Tuesday, May 23, 2017 11:16 - CONCLUSION: Interval improvement when compared to 7. Ryan Hoover MD FACR Catheter Placement X-Ray 05/18/17 0000 Signed Impressions: Service Date/Time: Thursday, May 18, 2017 16:40 - CONCLUSION: Uncomplicated ultrasound and fluoroscopic guided dual lumen Jang catheter implantation as described. Emerson Carrasquillo MD Chest CT 05/17/17 0000 Signed Impressions: Service Date/Time: April 17:53 - CONCLUSION: 1. Bilateral alveolar infiltrates most characteristic of pulmonary edema. 2. Small to moderate bilateral pleural effusions. 3. Small amount of pericardial fluid. 4. Coronary artery calcifications. 5. Prominent left lobe of the thyroid with low attenuation nodular area. Braxton Tidwell MD Soft Tissue Ultrasound 05/11/17 0000 Signed Impressions: Service Date/Time: Thursday, May 11, 2017 08:27 - CONCLUSION: Negative for abscess. Edematous changes in the soft tissues of the left axilla. Hank Nixon MD Objective Remarks GENERAL: NAD SKIN: Warm and dry.some cellulitis to LUE without any drainage HEAD: Normocephalic. EYES: No scleral icterus. No injection or drainage. NECK: Supple, trachea midline. No JVD or lymphadenopathy. CARDIOVASCULAR: Regular rate and rhythm without murmurs, gallops, or rubs. RESPIRATORY: Breath sounds equal bilaterally. No accessory muscle use. GASTROINTESTINAL: Abdomen soft, non-tender, nondistended. MUSCULOSKELETAL: No cyanosis, or edema. BACK: Nontender without obvious deformity. No CVA tenderness. Procedures Echo 05/14/2017 CONCLUSIONS The left ventricular systolic function is normal with an estimated ejection fraction in the range of 55-60%. Wall thickness is measured at the upper limits of normal. The right ventricle is mildly dilated. Mild mitral valve regurgitation. There is trace tricuspid valve regurgitation. Medications and IVs Current Medications Medications (Trade) Dose Ordered Sig/Maritza Route Start Time Stop Time Status Last Admin (NS Flush) 2 ml UNSCH PRN IV FLUSH 05/10/17 15:00 05/15/17 03:47 (NS Flush) 2 ml BID IV FLUSH 05/10/17 21:00 06/07/17 10:13 (Tylenol) 650 mg Q4H PRN PO 05/10/17 15:00 06/06/17 06:20 (Zofran Inj) 4 mg Q6H PRN IVP 05/10/17 15:00 06/06/17 06:11 (Cinthia-Colace) 1 tab BID PO 05/10/17 21:00 06/07/17 10:13 (Milk Of Magnesia Liq) 30 ml Q12H PRN PO 05/10/17 15:00 (Senokot) 17.2 mg Q12H PRN PO 05/10/17 15:00 (Dulcolax Supp) 10 mg DAILY PRN RECTAL 05/10/17 15:00 (Lactulose Liq) 30 ml DAILY PRN PO 05/10/17 15:00 (Norvasc) 5 mg DAILY PO 05/11/17 09:00 Hold 05/14/17 10:17 (Lipitor) 20 mg DAILY PO 05/11/17 09:00 06/07/17 10:13 (Prinivil) 20 mg DAILY PO 05/11/17 09:00 Hold 05/26/17 09:43 (Roxicodone) 5 mg Q4H PRN PO 05/11/17 12:00 06/07/17 10:15 (Roxicodone) 10 mg Q6H PRN PO 05/11/17 12:00 (Pill Splitter) 1 ea UNSCH PRN OTHER 05/14/17 12:15 Sodium Chloride 5 ml 5 ml UNSCH PRN IV FLUSH 05/14/17 23:30 (NS 1000 ml Inj) 1,000 ml @ 30 mls/hr Q24H IV 05/15/17 12:00 06/07/17 05:41 (Benadryl) 25 mg Q4H PRN PO 05/15/17 15:30 06/05/17 00:36 (D50w (Vial) Inj) 25 ml UNSCH PRN IV PUSH 05/17/17 11:30 (Glucagon Inj) 1 mg UNSCH PRN OTHER 05/17/17 11:30 (NS Flush) DAILY IVF 05/19/17 09:00 06/04/17 13:05 (Heparin Central Flush) DAILY IV FLUSH 05/19/17 09:00 05/25/17 09:38 (NS Flush) UNSCH PRN IVF 05/18/17 18:00 (Heparin Central Flush) UNSCH PRN IV FLUSH 05/18/17 18:00 (NovoLOG SUPPLEMENTAL SCALE) 1 BIDAC SQ 05/29/17 07:00 (Lopressor) 25 mg Q8H PO 05/29/17 17:00 06/07/17 10:13 (Arispe Davin [place]) 2 spray Q4H PRN EACH NARE 05/31/17 08:30 Nystatin 5 ml 5 ml QID SWISH-SWAL 05/31/17 09:00 06/07/17 10:13 Vancomycin HCl 1000 mg/Sodium Chloride 250 ml @ 250 mls/hr Q12H IV 06/04/17 09:00 06/06/17 21:58 (Maxipime Inj/NS Inj) 100 ml @ 200 mls/hr Q8H IV 06/05/17 00:00 06/07/17 10:13 Urinary Catheter: No Vascular Central Line Catheter: No A/P Problem List: (1) Pancytopenia ICD Code: D61.818 Status: Acute (2) Macrocytic anemia ICD Code: D53.9 Status: Chronic (3) Alcohol abuse ICD Code: F10.10 Status: Chronic (4) S/P tympanic tube insertion ICD Code: Z96.22 Status: Chronic (5) AML M5 (acute monocytic leukemia) ICD Code: C93.00 Status: Acute (6) Cellulitis ICD Code: L03.90 Status: Acute (7) Neutropenic fever ICD Code: D70.9 Status: Acute Assessment and Plan 66-year-old man with Acute myelomonocytic anemia - Management per medical oncology - Induction chemotherapy completed 05/23/2017. S/p platelet transfusion. -Continue sufficient support with red cells and platelets on an as-needed basis through his counts would seem to be recovering. -Bone marrow biopsy 06/05/17 for restaging Left upper extremity phlebitis - Completed Levaquin therapy for axilla cellulitis On cefepime and vancomycin IV for empiric coverage given the presence of cellulitis. Neutropenic fever Continue with cefepime Neutropenic precautions 06/07 No further fevers. Continue IV Cefepime and IV vancomycin. Acute respiratory failure Pleural effusion Probable pneumonia Left axillary cellulitis - Currently on IV Vancomycin and IV Cefepime. Hypertension Hyperlipidemia - Continue atorvastatin 20 mg and metoprolol - Hold Amlodipine and Lisinopril for now. - BP stable Atrial fibrillation -continue metoprolol - Seems to be rate controlled Dysphagia --on Nystatin per oncology Full code. SCDs. Discharge Planning Possible dicharge in 24 to 48 hrs pending oncology clearance. Deven Montgomery MD Jun 07, 2017 12:07
[2017-06-07] MEDS: VANCOMYCIN INJ 1,000 MG in SODIUM CHLOR 0.9% 250 ML INJ 250 ML IV SCH ×2 (13:37→20:31)
--- NOTE | 2017-06-07 15:30 | HHI.PR ---
Subjective Remarks 66 YOWM with ac Monomyelocytik leuk, bilat infilt No hemoptysis Low grade bx Appetite poor No fever WBC improved to 2.1 Anxious to go home. Objective Vital Signs Vital Signs Date Time Temp Pulse Resp B/P Pulse Ox O2 Delivery O2 Flow Rate FiO2 06/07/17 14:52 84 06/07/17 12:00 96.2 93 16 101/56 96 06/07/17 08:00 98.0 88 16 125/74 96 06/07/17 04:07 97.5 92 16 111/66 98 06/07/17 00:00 99.0 96 16 121/ 97 06/06/17 20:25 91 06/06/17 20:00 98.6 84 16 116/64 95 06/06/17 16:22 98.3 97 20 121/65 96 I/O 06/06/17 06/06/17 06/06/17 06/07/17 06/07/17 06/07/17 07:00 15:00 23:00 07:00 15:00 23:00 Intake Total 300 ml 600 ml 250 ml 260 ml 240 ml Output Total 800 ml 500 ml 550 ml 75 ml Balance -500 ml 600 ml -250 ml -290 ml 165 ml Intake Oral 300 ml 600 ml 250 ml 260 ml 240 ml Output Urine Total 800 ml 500 ml 550 ml 75 ml # Voids 3 2 # Bowel Movements 2 0 1 1 Result Diagram: 06/07/17 0706/07/17705 Objective Remarks GENERAL: WMWN WM, NAD SKIN: Warm and dry. HEAD: Normocephalic. EYES: No scleral icterus. No injection or drainage. NECK: Supple, trachea midline. No JVD or lymphadenopathy. CARDIOVASCULAR: Regular rate and rhythm without murmurs, gallops, or rubs. RESPIRATORY: Breath sounds equal bilaterally. No accessory muscle use. GASTROINTESTINAL: Abdomen soft, non-tender, nondistended. MUSCULOSKELETAL: No cyanosis, or edema. BACK: Nontender without obvious deformity. No CVA tenderness. A/P Assessment and Plan Bilat Infilt Pleural effusion mild Hemoptysis Ac Monomyelocytic Leukemia Pancytopenia PLAN" Cont Abx per ID monitor pl fluid Supplement 02 Monitor CBC Encourage PO Stable on Donald Weeks MD Jun 07, 2017 15:30
[2017-06-08] VITALS (7 sets, daily range): BP systolic 109–141; BP diastolic 50–82; PULSE 81–100; RESP 16–20; TEMP 96.3–99.2; O2SAT 95–98
[2017-06-08] MEDS: CEFEPIME INJ 2,000 MG in SODIUM CHLORIDE 0.9% INJ 100 ML IV SCH ×4 (00:25→23:22)
[2017-06-08] MEDS: METOPROLOL TARTRATE 25 MG TAB PO SCH ×3 (00:26→17:00)
[2017-06-08] MEDS: INSULIN ASPART SUPPLEMENTAL SCALE SQ SCH ×2 (06:25→16:00)
[2017-06-08 06:54] LABS: MEAN CELL VOLUME 83.9 FL (80.0-100.0); MEAN CORPUSCULAR HEMOGLOBIN 29.9 PG (27.0-34.0); MEAN CORPUSCULAR HGB CONC 35.7 % (32.0-36.0); PLATELET COUNT 404 TH/MM3 (150-450); RED BLOOD COUNT 2.98 MIL/MM3 (4.50-5.90); RED CELL DISTRIBUTION WIDTH 15.4 % (11.6-17.2); WHITE BLOOD COUNT 3.1 TH/MM3 (4.0-11.0)
[2017-06-08 07:05] LABS: HEMO FLAGS AUTO DIFF
[2017-06-08 07:16] LABS: ANION GAP 9 MEQ/L (5-15); AST (GOT) 14 U/L (15-37); BICARBONATE 27.3 MEQ/L (21.0-32.0); BLOOD UREA NITROGEN 12 MG/DL (7-18); CHLORIDE 103 MEQ/L (98-107); GLOMERULAR FILTRATION RATE 119 ML/MIN (>89); POTASSIUM 3.3 MEQ/L (3.5-5.1); SODIUM (NA) 139 MEQ/L (136-145)
--- NOTE | 2017-06-08 07:20 | PD.ONC.PN ---
Subjective Subjective Remarks Patient seen and examined. He denies acute complaints. Denies fevers or chills, he has been eating well, denies nausea vomiting diarrhea hematochezia or melena. Has itching and some spots over the arms and torso. Continues to have some swelling and pain at the level of the left wrist. Objective Data Date Time Temp Pulse Resp B/P Pulse Ox O2 Delivery O2 Flow Rate FiO2 06/08/17 04:00 97.6 86 16 120/74 98 06/08/17 00:28 97.4 83 20 109/50 97 06/07/17 20:11 83 06/07/17 20:00 96.4 103 16 133/75 99 06/07/17 14:52 84 06/07/17 12:00 96.2 93 16 101/56 96 06/07/17 08:00 98.0 88 16 125/74 96 06/08/17 06/08/17 06/08/17 07:00 15:00 23:00 Intake Total 2158 ml Output Total 1090 ml Balance 1068 ml Result Diagram: 06/08/17 0609 06/07/17 0706 Laboratory Results Laboratory Tests Test 06/08/17 06:09 White Blood Count 3.1 TH/MM3 Red Blood Count 2.98 MIL/MM3 Hemoglobin 8.9 GM/DL Hematocrit 25.0 % Mean Corpuscular Volume 83.9 FL Mean Corpuscular Hemoglobin 29.9 PG Mean Corpuscular Hemoglobin 35.7 % Concent Red Cell Distribution Width 15.4 % Platelet Count 404 TH/MM3 Mean Platelet Volume 7.4 FL Neutrophils (%) (Auto) % Lymphocytes (%) (Auto) % Monocytes (%) (Auto) % Eosinophils (%) (Auto) % Basophils (%) (Auto) % Neutrophils # (Auto) TH/MM3 Lymphocytes # (Auto) TH/MM3 Monocytes # (Auto) TH/MM3 Eosinophils # (Auto) TH/MM3 Basophils # (Auto) TH/MM3 CBC Comment AUTO DIFF Administered Medications Medications (Trade) Dose Ordered Sig/Maritza Route PRN Reason Start Time Stop Time Status Last Admin Dose Admin Sodium Chloride (NS Flush) 2 ml UNSCH PRN IV FLUSH FLUSH AFTER USING IV ACCESS 05/10/17 15:00 05/15/17 03:47 Sodium Chloride (NS Flush) 2 ml BID IV FLUSH 05/10/17 21:00 06/07/17 10:13 Acetaminophen (Tylenol) 650 mg Q4H PRN PO TEMP > 100.4 OR PREMEDICATION FOR BLOOD PRODUCT 05/10/17 15:00 06/06/17 06:20 Ondansetron HCl (Zofran Inj) 4 mg Q6H PRN IVP NAUSEA OR VOMITING 05/10/17 15:00 06/06/17 06:11 Senna/Docusate Sodium (Cinthia-Colace) 1 tab BID PO 05/10/17 21:00 06/07/17 10:13 Amlodipine Besylate (Norvasc) 5 mg DAILY PO 05/11/17 09:00 Hold 05/14/17 10:17 Atorvastatin Calcium (Lipitor) 20 mg DAILY PO 05/11/17 09:00 06/07/17 10:13 Lisinopril (Prinivil) 20 mg DAILY PO 05/11/17 09:00 Hold 05/26/17 09:43 Oxycodone HCl 5 mg 5 mg Q4H PRN PO PAIN SCALE 3 TO 5 05/11/17 12:00 06/07/17 10:15 Sodium Chloride (NS 1000 ml Inj) 1,000 ml @ 30 mls/hr Q24H IV 05/15/17 12:00 06/07/17 05:41 Diphenhydramine HCl (Benadryl) 25 mg Q4H PRN PO PRE-MEDICATE FOR BLOOD PRODUCT 05/15/17 15:30 06/05/17 00:36 Sodium Chloride (NS Flush) DAILY IVF 05/19/17 09:00 06/04/17 13:05 Heparin Sodium (Porcine) (Heparin Central Flush) DAILY IV FLUSH 05/19/17 09:00 05/25/17 09:38 Metoprolol Tartrate (Lopressor) 25 mg Q8H PO 05/29/17 17:00 06/08/17 00:26 Nystatin 5 ml 5 ml QID SWISH-SWAL 05/31/17 09:00 06/07/17 20:31 Vancomycin HCl 1000 mg/Sodium Chloride 250 ml @ 250 mls/hr Q12H IV 06/04/17 09:00 06/07/17 20:31 Cefepime HCl/ Sodium Chloride (Maxipime Inj/NS Inj) 100 ml @ 200 mls/hr Q8H IV 06/05/17 00:00 06/08/17 00:25 Objective Remarks GENERAL: Pleasant male, upright in bed in nad SKIN: Warm and dry. Interval removal of Jang catheter from the right chest wall. Erythema and swelling in the distal portion of the left forearm at the site of a previous IV line. HEAD: Normocephalic. EYES: No injection or drainage. Nose: Dried blood in the nares bilaterally. No active bleeding noted. NECK: Supple, trachea midline. CARDIOVASCULAR: +S1/S2, no obvious murmurs or gallops. RESPIRATORY: Breath sounds equal bilaterally. No accessory muscle use. GASTROINTESTINAL: Abdomen soft, non-tender, nondistended. EXTREMITIES: No cyanosis, area of erythema, swelling and redness on the distal left forearm at the site of previous IV placement. NEUROLOGICAL: awake and alert. normal speech. moving all extremities. 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 Started on induction systemic chemotherapy with idarubicin/cytarabine (3+7) on . Induction completed on 05/23/2017. (2) Neutropenic fever Status: Acute Plan: --Levaquin stopped 05/27 --Blood cultures and urine cultures are negative to date. -- Cefepime started on 06/02/17 for erythematous thrombophlebitis to L wrist. (3) Hyperbilirubinemia Status: Acute Plan: --combination of direct and indirect elevated. --unclear etiology --hepatitis panel is negative. (4) Respiratory insufficiency Status: Resolved Plan: --CXR, 05/23, shows improvement --pulmonology following --CT chest shows alveolar infiltrates. --on duonebs PRN --Lasix PRN (5) Atrial fibrillation Status: Acute Plan: --rate controlled on metoprolol Assessment 66y/o male with newly diagnosed AMML. Plan 1. Day 26 following initiation of idarubicin and cytarabine induction remission systemic therapy. Counts are recovering very nicely. Bone marrow aspirate flow cytometry results reviewed and presence of leukemic blasts versus regenerative blasts were noted, await final bone marrow biopsy report. He does not need to be in the hospital while we await the results. 2. Cytopenias: Resolving rapidly, no longer requiring transfusion support. 3. US showed thrombophlebitis of L wrist. On cefepime and vancomycin for empiric coverage given the appearance of cellulitis. 4. He is afebrile. Disposition: Cleared for discharge from hematology/oncology. I will see him in my office in [place] next week with repeat blood work and will discuss the results of bone marrow biopsy with him at that time. Should he have persistent leukemia I will consider either re-inducing him or transferring him to a tertiary referral Center. Should he be in remission he will be a candidate for consolidation chemotherapy with high-dose cytarabine. Please discharge him on Keflex 500 mg 3 times daily for possible phlebitis/ cellulitis of the left wrist, please continue this for at least 5 days. Problem Qualifiers (1) Acute myelomonocytic leukemia: Qualified Code: C92.50 - Acute myelomonocytic leukemia not having achieved remission Dwain Diez MD Jun 08, 2017 07:20
[2017-06-08 07:21] LABS: ALKALINE PHOSPHATASE 114 U/L (45-117); ALT (GPT) 22 U/L (12-78); TOTAL BILIRUBIN ADULT 0.6 MG/DL (0.2-1.0)
[2017-06-08] MEDS: NYSTATIN SUSP 500,000 U/5 ML CUP SWISH-SWAL SCH ×4 (08:42→20:00)
[2017-06-08] MEDS: VANCOMYCIN INJ 1,000 MG in SODIUM CHLOR 0.9% 250 ML INJ 250 ML IV SCH ×2 (08:43→19:55)
[2017-06-08] MEDS: ATORVASTATIN 20 MG TAB PO SCH (08:43)
[2017-06-08] MEDS: DOCUSATE SODIUM 50 MG/SENNA 8.6 MG TAB PO SCH ×2 (08:43→20:00)
[2017-06-08] MEDS: SODIUM CHLORIDE 0.9% FLUSH 10 ML FLUSH IV FLUSH SCH ×2 (09:00→20:00)
[2017-06-08] MEDS: SODIUM CHLORIDE 0.9% FLUSH 10 ML FLUSH IVF SCH (09:00)
[2017-06-08 09:25] LABS: BANDS 8 % (0-6); CORRECTED NUCLEATED RBC 3 /100 WBC (0-0); METAMYELOCYTES 17 % (0-1); MYELOCYTES 10 % (0-0); NEUTROPHIL # MANUAL DIFF 1.7 TH/MM3 (1.8-7.7); POLYS (SEG NEUTROPHILS) 21 % (16-70); WBC DIFF SAMPLE 100
[2017-06-08 09:26] LABS: PLATELET ESTIMATE SMEAR NORMAL (NORMAL); PLATELET MORPHOLOGY NORMAL (NORMAL); SCAN/DIFF FINAL DIFF MANUAL
[2017-06-08 09:27] LABS: ACANTHOCYTES OCC (NORMAL)
[2017-06-08] MEDS ORDERED: POTASSIUM CHLORIDE 10 MEQ CONTROLLED RELEASE TAB PO ONE (10:15)
--- NOTE | 2017-06-08 12:49 | HHI.PR ---
Subjective Remarks still c/o swelling on anterior left wrist denies cp/sob denies cough denies diarrhea, nausea or vomiting Potassium low at 3.3 Objective Vitals Vital Signs Date Time Temp Pulse Resp B/P Pulse Ox O2 Delivery O2 Flow Rate FiO2 06/08/17 08:00 99.2 94 20 139/82 96 06/08/17 08:00 81 06/08/17 04:00 97.6 86 16 120/74 98 06/08/17 00:28 97.4 83 20 109/50 97 06/07/17 21:00 99 Room Air 21 06/07/17 21:00 87 06/07/17 20:11 83 06/07/17 20:00 96.4 103 16 133/75 99 06/07/17 14:52 84 I/O 06/07/17 06/07/17 06/07/17 06/08/17 06/08/17 06/08/17 07:00 15:00 23:00 07:00 15:00 23:00 Intake Total 260 ml 240 ml 490 ml 2158 ml Output Total 550 ml 75 ml 900 ml 1090 ml Balance -290 ml 165 ml -410 ml 1068 ml Intake Oral 260 ml 240 ml 490 ml 360 ml IV Total 1798 ml Output Urine Total 550 ml 75 ml 900 ml 1090 ml # Voids 2 # Bowel Movements 1 1 0 0 Result Diagram: 06/08/17 0609 06/08/17 0609 Imaging Last Impressions Bone Biopsy CT 06/05/17 0000 Signed Impressions: Service Date/Time: Monday, June 05, 2017 13:49 - CONCLUSION: 1. Uncomplicated CT guided bone marrow aspirate. 2. Uncomplicated CT guided bone marrow biopsy. Sebastián Pratt MD Central Venous Line 06/04/17 0751 Signed Impressions: Service Date/Time: Sunday, June 04, 2017 07:51 - CONCLUSION: Uncomplicated Jang removal. Ruben Nicole Jr., MD Upper Extremity Ultrasound 06/02/17 0000 Signed Impressions: Service Date/Time: Friday, June 02, 2017 15:46 - CONCLUSION: Thrombophlebitis. Virginia Denney MD Chest X-Ray 05/23/17 0000 Signed Impressions: Service Date/Time: Tuesday, May 23, 2017 11:16 - CONCLUSION: Interval improvement when compared to 2916. Ryan Hoover MD FACR Catheter Placement X-Ray 05/18/17 0000 Signed Impressions: Service Date/Time: Thursday, May 18, 2017 16:40 - CONCLUSION: Uncomplicated ultrasound and fluoroscopic guided dual lumen Jang catheter implantation as described. Emerson Carrasquillo MD Chest CT 05/17/17 0000 Signed Impressions: Service Date/Time: April 17:53 - CONCLUSION: 1. Bilateral alveolar infiltrates most characteristic of pulmonary edema. 2. Small to moderate bilateral pleural effusions. 3. Small amount of pericardial fluid. 4. Coronary artery calcifications. 5. Prominent left lobe of the thyroid with low attenuation nodular area. Braxton Tidwell MD Soft Tissue Ultrasound 05/11/17 0000 Signed Impressions: Service Date/Time: Thursday, May 11, 2017 08:27 - CONCLUSION: Negative for abscess. Edematous changes in the soft tissues of the left axilla. Hank Nixon MD Objective Remarks GENERAL: NAD SKIN: Warm and dry.some swelling and erythema over left anterior wrist without drainage. HEAD: Normocephalic. EYES: No scleral icterus. No injection or drainage. NECK: Supple, trachea midline. No JVD or lymphadenopathy. CARDIOVASCULAR: Regular rate and rhythm without murmurs, gallops, or rubs. RESPIRATORY: Breath sounds equal bilaterally. No accessory muscle use. GASTROINTESTINAL: Abdomen soft, non-tender, nondistended. MUSCULOSKELETAL: No cyanosis, or edema. BACK: Nontender without obvious deformity. No CVA tenderness. Procedures Echo 05/14/2017 CONCLUSIONS The left ventricular systolic function is normal with an estimated ejection fraction in the range of 55-60%. Wall thickness is measured at the upper limits of normal. The right ventricle is mildly dilated. Mild mitral valve regurgitation. There is trace tricuspid valve regurgitation. Medications and IVs Current Medications Medications (Trade) Dose Ordered Sig/Maritza Route Start Time Stop Time Status Last Admin (NS Flush) 2 ml UNSCH PRN IV FLUSH 05/10/17 15:00 05/15/17 03:47 (NS Flush) 2 ml BID IV FLUSH 05/10/17 21:00 06/07/17 10:13 (Tylenol) 650 mg Q4H PRN PO 05/10/17 15:00 06/06/17 06:20 (Zofran Inj) 4 mg Q6H PRN IVP 05/10/17 15:00 06/06/17 06:11 (Cinthia-Colace) 1 tab BID PO 05/10/17 21:00 06/08/17 08:43 (Milk Of Magnesia Liq) 30 ml Q12H PRN PO 05/10/17 15:00 (Senokot) 17.2 mg Q12H PRN PO 05/10/17 15:00 (Dulcolax Supp) 10 mg DAILY PRN RECTAL 05/10/17 15:00 (Lactulose Liq) 30 ml DAILY PRN PO 05/10/17 15:00 (Norvasc) 5 mg DAILY PO 05/11/17 09:00 Hold 05/14/17 10:17 (Lipitor) 20 mg DAILY PO 05/11/17 09:00 06/08/17 08:43 (Prinivil) 20 mg DAILY PO 05/11/17 09:00 Hold 05/26/17 09:43 (Roxicodone) 5 mg Q4H PRN PO 05/11/17 12:00 06/07/17 10:15 (Roxicodone) 10 mg Q6H PRN PO 05/11/17 12:00 (Pill Splitter) 1 ea UNSCH PRN OTHER 05/14/17 12:15 Sodium Chloride 5 ml 5 ml UNSCH PRN IV FLUSH 05/14/17 23:30 (NS 1000 ml Inj) 1,000 ml @ 30 mls/hr Q24H IV 05/15/17 12:00 06/07/17 05:41 (Benadryl) 25 mg Q4H PRN PO 05/15/17 15:30 06/05/17 00:36 (D50w (Vial) Inj) 25 ml UNSCH PRN IV PUSH 05/17/17 11:30 (Glucagon Inj) 1 mg UNSCH PRN OTHER 05/17/17 11:30 (NS Flush) DAILY IVF 05/19/17 09:00 06/04/17 13:05 (Heparin Central Flush) DAILY IV FLUSH 05/19/17 09:00 05/25/17 09:38 (NS Flush) UNSCH PRN IVF 05/18/17 18:00 (Heparin Central Flush) UNSCH PRN IV FLUSH 05/18/17 18:00 (NovoLOG SUPPLEMENTAL SCALE) 1 BIDAC SQ 05/29/17 07:00 (Lopressor) 25 mg Q8H PO 05/29/17 17:00 06/08/17 08:43 ([place] Davin [place]) 2 spray Q4H PRN EACH NARE 05/31/17 08:30 Nystatin 5 ml 5 ml QID SWISH-SWAL 05/31/17 09:00 06/08/17 08:42 Vancomycin HCl 1000 mg/Sodium Chloride 250 ml @ 250 mls/hr Q12H IV 06/04/17 09:00 06/08/17 08:43 (Maxipime Inj/NS Inj) 100 ml @ 200 mls/hr Q8H IV 06/05/17 00:00 06/08/17 08:44 Vascular Central Line Catheter: No A/P Problem List: (1) Pancytopenia ICD Code: D61.818 Status: Acute (2) Macrocytic anemia ICD Code: D53.9 Status: Chronic (3) Alcohol abuse ICD Code: F10.10 Status: Chronic (4) S/P tympanic tube insertion ICD Code: Z96.22 Status: Chronic (5) AML M5 (acute monocytic leukemia) ICD Code: C93.00 Status: Acute (6) Cellulitis ICD Code: L03.90 Status: Acute (7) Neutropenic fever ICD Code: D70.9 Status: Acute Assessment and Plan 66-year-old man with Acute myelomonocytic anemia - Management per medical oncology - Induction chemotherapy completed 05/23/2017. S/p platelet transfusion. -Status post fusion of multiple units of irradiated leukocyte reduced red blood cells and irradiated leukocyte reduced platelets. -Bone marrow biopsy obtained on 06/05/17 shows hypocellular bone marrow with features of low level involvement by procedural acute myelomonocytic leukemia. -Patient cleared for discharge from hematology oncology standpoint. Left upper extremity phlebitis - Completed Levaquin therapy for axilla cellulitis - On cefepime and vancomycin IV for empiric coverage given the presence of cellulitis. - As per senior it security analyst access team could device the deep of a peripheral IV catheter over at the phlebitis site. I reviewed ultrasound report of the left upper extremity, however there is no mention of this catheter. Will consult general surgery. Neutropenic fever Continue with cefepime Neutropenic precautions Blood and sputum cultures negative to date. Patient to with IV vancomycin and IV cefepime. DC IV Vancomycin. Acute respiratory failure Pleural effusion Probable pneumonia Left axillary cellulitis - Currently on IV Vancomycin and IV Cefepime. Hypertension Hyperlipidemia - Continue atorvastatin 20 mg and metoprolol - Hold Amlodipine and Lisinopril for now. - BP stable Atrial fibrillation -continue metoprolol - Seems to be rate controlled Dysphagia --on Nystatin per oncology -- Resolved Full code. SCDs. Discharge Planning Dc pending general surgery consultation and possible removal of peripheral Iv catheter.Deven Brown MD Jun 08, 2017 12:49
--- NOTE | 2017-06-08 16:04 | HHI.FF ---
Face to Face Verification Diagnosis: (1) Acute myelomonocytic leukemia (2) Neutropenic fever (3) Hyperbilirubinemia (4) AML M5 (acute monocytic leukemia) (5) Atrial fibrillation (6) Respiratory insufficiency (7) Cellulitis (8) Macrocytic anemia Physical Therapy Order: Improve ambulation, Strength and gait training Home Health Nursing Order: Signs/symptoms of disease process Nursing assessment with vital signs I have seen patient Ludwin Gutiérrez on 06/08/17. My clinical findings support the need for the requested home health care services because: Need for psychosocial assistance High risk of falls Infection w/ risk of complications I certify that my clinical findings support that this patient is homebound because: Need for psychosocial assistance Unable to use public transportation Deven Montgomery MD Jun 08, 2017 16:04
[2017-06-08] MEDS ORDERED: CEPH-460 PO (16:06)
--- NOTE | 2017-06-08 17:25 | RADRPT ---
EXAM DATE/TIME: 06/08/2017 16:34 [facility] COMPARISON: No previous studies available for comparison. INDICATIONS : Evaluate for foreign body. MEDICAL HISTORY : None. SURGICAL HISTORY : None. ENCOUNTER: Initial ACUITY: 1 day PAIN SCORE: 4/10 LOCATION: Left posteromedial wrist. FINDINGS: 2 views of the left hand demonstrate no fracture or dislocation. Mineralization is within normal limi ts and there is no significant arthropathy. No soft tissue abnormality or radiopaque foreign body is identified. CONCLUSION: No acute abnormality is identified. Emerson Rojas MD on June 08, 2017 at 17:22 Board Certified Radiologist. This report was verified electronically.
--- NOTE | 2017-06-08 18:18 | HHI.PR ---
Subjective Remarks 66 YOWM with ac Monomyelocytik leuk, bilat infilt No hemoptysis Appetite poor No fever WBC improved Anxious to go home. Objective Vital Signs Vital Signs Date Time Temp Pulse Resp B/P Pulse Ox O2 Delivery O2 Flow Rate FiO2 06/08/17 16:00 97.9 87 18 126/81 97 06/08/17 12:00 96.3 100 20 133/78 97 06/08/17 08:00 99.2 94 20 139/82 96 06/08/17 08:00 81 06/08/17 04:00 97.6 86 16 120/74 98 06/08/17 00:28 97.4 83 20 109/50 97 06/07/17 21:00 99 Room Air 21 06/07/17 21:00 87 06/07/17 20:11 83 06/07/17 20:00 96.4 103 16 133/75 99 I/O 06/07/17 06/07/17 06/07/17 06/08/17 06/08/17 06/08/17 06:59 14:59 22:59 06:59 14:59 22:59 Intake Total 260 ml 240 ml 490 ml 2158 ml 480 ml Output Total 550 ml 75 ml 900 ml 1090 ml Balance -290 ml 165 ml -410 ml 1068 ml 480 ml Intake Oral 260 ml 240 ml 490 ml 360 ml 480 ml IV Total 1798 ml Output Urine Total 550 ml 75 ml 900 ml 1090 ml # Voids 2 2 # Bowel Movements 1 1 0 0 Result Diagram: 06/08/17 0609 06/08/17 0609 Objective Remarks GENERAL: WMWN WM, NAD SKIN: Warm and dry. HEAD: Normocephalic. EYES: No scleral icterus. No injection or drainage. NECK: Supple, trachea midline. No JVD or lymphadenopathy. CARDIOVASCULAR: Regular rate and rhythm without murmurs, gallops, or rubs. RESPIRATORY: Breath sounds equal bilaterally. No accessory muscle use. GASTROINTESTINAL: Abdomen soft, non-tender, nondistended. MUSCULOSKELETAL: No cyanosis, or edema. BACK: Nontender without obvious deformity. No CVA tenderness. A/P Assessment and Plan Bilat Infilt Pleural effusion mild Hemoptysis Ac Monomyelocytic Leukemia Pancytopenia PLAN" Cont Abx per ID monitor pl fluid Encourage PO Stable on RA DC plans underway for home Aneja,Donald Dev MD Jun 08, 2017 18:18
[2017-06-09] VITALS: BP 127/69; PULSE 87; RESP 19; TEMP 98.5; O2SAT 97
[2017-06-09] MEDS: METOPROLOL TARTRATE 25 MG TAB PO SCH (02:21)
[2017-06-09] MEDS: SODIUM CHLOR 0.9% 1000 ML INJ 1,000 ML IV SCH (02:21)
[2017-06-09 04:00] VITALS: BP 127/75; PULSE 87; RESP 19; TEMP 96.2; O2SAT 96
[2017-06-09] MEDS: INSULIN ASPART SUPPLEMENTAL SCALE SQ SCH (06:22)
[2017-06-09 08:00] VITALS: BP 118/76; PULSE 96; RESP 16; O2SAT 95
[2017-06-09 10:38] LABS: AUTOMATED NEUTROPHIL # 3.1 TH/MM3 (1.8-7.7); BASOPHIL % 0.6 % (0.0-2.0); HEMATOCRIT 27.2 % (39.0-51.0); LYMPH % 15.2 % (9.0-44.0); LYMPHOCYTE # 0.7 TH/MM3 (1.0-4.8); MEAN CELL VOLUME 83.5 FL (80.0-100.0); MEAN CORPUSCULAR HGB CONC 34.7 % (32.0-36.0); MONO % 20.3 % (0.0-8.0); NEUT % 63.9 % (16.0-70.0); PLATELET COUNT 525 TH/MM3 (150-450); RED BLOOD COUNT 3.26 MIL/MM3 (4.50-5.90); RED CELL DISTRIBUTION WIDTH 15.2 % (11.6-17.2); WHITE BLOOD COUNT 4.8 TH/MM3 (4.0-11.0)
[2017-06-09 10:39] LABS: HEMO FLAGS AUTO DIFF
[2017-06-09 11:48] LABS: BANDS 13 % (0-6); METAMYELOCYTES 4 % (0-1); MYELOCYTES 7 % (0-0); NEUTROPHIL # MANUAL DIFF 3.6 TH/MM3 (1.8-7.7); POLYS (SEG NEUTROPHILS) 50 % (16-70); WBC DIFF SAMPLE 100
[2017-06-09 11:49] LABS: PLATELET ESTIMATE SMEAR HIGH (NORMAL); PLATELET MORPHOLOGY NORMAL (NORMAL); SCAN/DIFF FINAL DIFF MANUAL
--- NOTE | 2017-06-09 11:51 | HHI.DS ---
Discharge Summary Admission Date May 10, 2017 at 15:25 Discharge Date: Jun 09, 2017 Admitting Diagnosis Pancytopenia, neutropenia, right ear infection (1) Pancytopenia ICD Code: D61.818 Diagnosis: Principal (2) Macrocytic anemia ICD Code: D53.9 Diagnosis: Principal (3) Alcohol abuse ICD Code: F10.10 Diagnosis: Principal (4) S/P tympanic tube insertion ICD Code: Z96.22 Diagnosis: Principal (5) Cellulitis ICD Code: L03.90 Diagnosis: Principal (6) Neutropenic fever ICD Code: D70.9 Diagnosis: Principal (7) Foreign object left in body during removal of catheter or packing ICD Code: T81.507A Diagnosis: Principal (8) 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 Wall thickness is measured at the upper limits of normal. The right ventricle is mildly dilated. Mild mitral valve regurgitation. There is trace tricuspid valve regurgitation. Brief History - From Admission Written by Susie Varela, acting as scribe for Dr. Monterroso] on 05/10/17 at 16: 00. This note was transcribed by scribe Susie PETERSON. I, Dr. Adalgisa Garcia personally performed the history, physical exam, and medical decision making; and confirmed the accuracy of the information in the transcribed note. Authenticated by Dr. Adalgisa Garcia on 05/10/17 at 16:00. 66 y/o male with a history HTN, HLD, AFIB and arthritis presented to the ED with complaints of dizziness and weakness. Yesterday he had a tube placed in his right ear by his ENT Dr, and he completed outpatient blood work. Today he was called by his PCP for a hgb of 7.6. He states he has had dizzy episodes when he stands up, lack of appetite, a 20 pound weight loss over the last 2 months. He is a homosexual male and has never been tested for HIV, he does agree with testing, consents signed. He states he does get short of breath at times. He admits to daily beer drinking, but states his last drink was one week ago. Denies any chest pain, fever or chills. CBC/BMP: 06/09/17 1000 06/08/17 0609 Significant Findings Laboratory Tests Test 06/07/17 06/08/17 06/09/17 07:06 06:09 10:00 White Blood Count 2.1 TH/MM3 3.1 TH/MM3 (4.0-11.0) (4.0-11.0) Red Blood Count 2.98 MIL/MM3 2.98 MIL/MM3 3.26 MIL/MM3 (4.50-5.90) (4.50-5.90) (4.50-5.90) Hemoglobin 9.0 GM/DL 8.9 GM/DL 9.5 GM/DL (13.0-17.0) (13.0-17.0) (13.0-17.0) Hematocrit 24.8 % 25.0 % 27.2 % (39.0-51.0) (39.0-51.0) (39.0-51.0) Mean Corpuscular Hemoglobin 36.1 % Concent (32.0-36.0) Monocytes (%) (Auto) 28.4 % 20.3 % (0.0-8.0) (0.0-8.0) Neutrophils # (Auto) 1.0 TH/MM3 (1.8-7.7) Lymphocytes # (Auto) 0.5 TH/MM3 0.7 TH/MM3 (1.0-4.8) (1.0-4.8) Monocytes % 18 % (0-8) 22 % (0-8) Neutrophils # (Manual) 1.1 TH/MM3 1.7 TH/MM3 (1.8-7.7) (1.8-7.7) Metamyelocytes 3 % (0-1) 17 % (0-1) Myelocytes 8 % (0-0) 10 % (0-0) Promyelocytes 4 % (0-0) Nucleated Red Blood Cells 2 /100 WBC 3 /100 WBC (0-0) (0-0) Random Glucose 107 MG/DL (74-106) Calcium Level 8.1 MG/DL 8.1 MG/DL (8.5-10.1) (8.5-10.1) Aspartate Amino Transf 14 U/L (15-37) 14 U/L (15-37) (AST/SGOT) Total Protein 5.9 GM/DL 5.8 GM/DL (6.4-8.2) (6.4-8.2) Albumin 2.2 GM/DL 2.2 GM/DL (3.4-5.0) (3.4-5.0) Band Neutrophils % 8 % (0-6) Potassium Level 3.3 MEQ/L (3.5-5.1) Platelet Count 525 TH/MM3 (150-450) Monocytes # (Auto) 1.0 TH/MM3 (0-0.9) Imaging Last Impressions Hand X-Ray 06/08/17 0000 Signed Impressions: Service Date/Time: Thursday, June 08, 2017 16:34 - CONCLUSION: No acute abnormality is identified. Emerson Rojas MD Bone Biopsy CT 06/05/17 0000 Signed Impressions: Service Date/Time: Monday, June 05, 2017 13:49 - CONCLUSION: 1. Uncomplicated CT guided bone marrow aspirate. 2. Uncomplicated CT guided bone marrow biopsy. Sebastián Pratt MD Central Venous Line 06/04/17 0751 Signed Impressions: Service Date/Time: Sunday, June 04, 2017 07:51 - CONCLUSION: Uncomplicated Jang removal. Ruben Nicole Jr., MD Upper Extremity Ultrasound 06/02/17 0000 Signed Impressions: Service Date/Time: Friday, June 02, 2017 15:46 - CONCLUSION: Thrombophlebitis. K. Rachid Denney MD Chest X-Ray 05/23/17 0000 Signed Impressions: Service Date/Time: Tuesday, May 23, 2017 11:16 - CONCLUSION: Interval improvement when compared to 6 7. Ryan Hoover MD FACR Catheter Placement X-Ray 05/18/17 0000 Signed Impressions: Service Date/Time: Thursday, May 18, 2017 16:40 - CONCLUSION: Uncomplicated ultrasound and fluoroscopic guided dual lumen Jang catheter implantation as described. Emerson Carrasquillo MD Chest CT 05/17/17 0000 Signed Impressions: Service Date/Time: April 17:53 - CONCLUSION: 1. Bilateral alveolar infiltrates most characteristic of pulmonary edema. 2. Small to moderate bilateral pleural effusions. 3. Small amount of pericardial fluid. 4. Coronary artery calcifications. 5. Prominent left lobe of the thyroid with low attenuation nodular area. Braxton Tidwell MD Soft Tissue Ultrasound 05/11/17 0000 Signed Impressions: Service Date/Time: Thursday, May 11, 2017 08:27 - CONCLUSION: Negative for abscess. Edematous changes in the soft tissues of the left axilla. Hank Nixon MD PE at Discharge GENERAL: NAD SKIN: Warm and dry.some swelling and erythema over left anterior wrist without drainage. HEAD: Normocephalic. EYES: No scleral icterus. No injection or drainage. NECK: Supple, trachea midline. No JVD or lymphadenopathy. CARDIOVASCULAR: Regular rate and rhythm without murmurs, gallops, or rubs. RESPIRATORY: Breath sounds equal bilaterally. No accessory muscle use. GASTROINTESTINAL: Abdomen soft, non-tender, nondistended. MUSCULOSKELETAL: No cyanosis, or edema. BACK: Nontender without obvious deformity. No CVA tenderness. Pt update on day of discharge The patient denies chest pain or shortness of breath. Denies fevers or chills. Discussed the case with Dr. Pagan from hand surgery, the patient can follow up as an outpatient and will undergo a phlebectomy. Hospital Course 66-year-old man with Acute myelomonocytic anemia - Management per medical oncology - Induction chemotherapy completed 05/23/2017. S/p platelet transfusion. - Status post fusion of multiple units of irradiated leukocyte reduced red blood cells and irradiated leukocyte reduced platelets. - Bone marrow biopsy obtained on 06/05/17 shows hypocellular bone marrow with features of low level involvement by procedural acute myelomonocytic leukemia. - Patient cleared for discharge from hematology oncology standpoint. Left upper extremity phlebitis - Completed Levaquin therapy for axilla cellulitis - On cefepime and vancomycin IV for empiric coverage given the presence of cellulitis. - As per regulatory attorney access team could device the deep of a peripheral IV catheter over at the phlebitis site. I reviewed ultrasound report of the left upper extremity, however there is no mention of this catheter. - Hand surgery consulted, the patient will follow up as an outpatient with Dr. Barrientos. Will discharge the patient on Keflex. Neutropenic fever Treated with antibiotics as above. Place on neutropenic precautions Blood and sputum cultures negative. Acute respiratory failure Pleural effusion Probable pneumonia Left axillary cellulitis - Sp treatment with IV Vancomycin and IV Cefepime Hypertension Hyperlipidemia - Continued atorvastatin 20 mg and metoprolol - Initially held antihypertensive medications - BP stable Atrial fibrillation -Metoprolol continued -Remained rate controlled Dysphagia --on Nystatin per oncology -- Resolved Full code. SCDs. Pt Condition on Discharge: Stable Discharge Disposition: Discharge Home Discharge Time: <= 30 minutes Discharge Instructions DIET: Follow Instructions for: Heart Healthy Diet Activities you can perform: Regular-No Restrictions Follow up Referrals: Hand Surgery - Next Day with Karthikeyan Barrientos III, MD Oncology - 1 Week with Dwain Diez MD New Medications: Cephalexin (Keflex) 500 Mg Capsule 500 MG PO Q8H Infection #15 Ref 0 CAP Continued Medications: Amlodipine (Amlodipine) 5 Mg Tab 5 MG PO DAILY Blood Pressure Management #30 Ref 0 TAB Atorvastatin (Atorvastatin) 20 Mg Tab 20 MG PO DAILY Cholesterol Management #30 Ref 0 TAB Lisinopril (Lisinopril) 20 Mg Tab 20 MG PO DAILY #30 Ref 0 TAB Metoprolol Tartrate (Metoprolol Tartrate) 50 Mg Tab 50 MG PO DAILY #30 Ref 0 TAB Discontinued Medications: Apixaban (Eliquis) 5 Mg Tab 5 MG PO DAILY Blood Clot Prevention #60 Ref 0 TAB Deven Montgomery MD Jun 09, 2017 11:50
--- NOTE | 2017-06-09 12:50 | MB ---
cc: JADE MEI III, M.D. DATE OF CONSULTATION: 06/09/2017 HISTORY OF PRESENT ILLNESS: The patient is a very friendly 66-year-old right hand-dominant male who was noted to have a superficial phlebitis in his left forearm. The patient states this developed several weeks ago when he was being treated with chemotherapy and was neutropenic and nothing could be done at the time. On his way home today from where he had addressed this surgically as an outpatient this week. He is here for treatment of acute myelomonocytic leukemia and was started on chemotherapy 05/15/2017 and completed 05/23/2017. He was started on cefepime on 06/02/2017 for the erythema that he developed in his left wrist. The patient was admitted on 05/10/17 with complaints of weakness and dizziness. Reportedly an ultrasound was done of the area which showed a piece of the catheter from a previous IV. I have looked at the ultrasounds that were done, and I cannot read anything from it. The report reads, "Examination of the dorsum of the patient's wrist there is a thrombosed superficial vein without evidence of fluid collection". Xrays of his left wrist and forearm were performed and reviewed in the hospital and show no fractures, foreign bodies or dislocations and no evidence of any foreign body or radiopaque IV catheter that I can identify. PAST MEDICAL HISTORY: 1. Atrial fibrillation. 2. Newly diagnosed AMML. 3. Hypertension. PAST SURGICAL HISTORY: 1. Hernia repair. 2. Tonsillectomy. 3. Left knee replacement. MEDICATIONS AT HOME: 1. Lisinopril. 2. Atorvastatin. 3. Metoprolol. 4. Amlodipine. 5. Eliquis. MEDICATIONS IN THE HOSPITAL: 1. Cefepime. 2. Vancomycin. 3. Nystatin. 4. Metoprolol. 5. NovoLog sliding scale. 6. Oxycodone. 7. Benadryl. 8. Amlodipine. 9. Lipitor. 10. Prinivil. ALLERGIES: NO KNOWN DRUG ALLERGIES. FAMILY HISTORY: Family history is noncontributory to this diagnosis. SOCIAL HISTORY: Denies smoking. REVIEW OF SYSTEMS: Patient is not complaining of headaches or blurry or double vision. He is not complaining of any coughing, wheezing or shortness of breath. He is not complaining of any chest pain or palpitations. He is not complaining of any nausea, vomiting or abdominal pain. He is not complaining of any burning, frequency or urgency with urination. He is not complaining of any skin lesions, rashes or eruptions except for the area over the left forearm. PHYSICAL EXAMINATION: GENERAL: The patient is well-developed, well-nourished and in no apparent distress lying comfortably in his bed. He is very pleasant. He is awake, alert and oriented x3. VITAL SIGNS: Temperature is 96.2, heart rate this morning is 96, respiratory rate 16, blood pressure 118/76. LEFT UPPER EXTREMITY: Examination of his left upper extremity reveals full active range of motion. There is a 4 x 2 cm area of inflammation over the cephalic vein just proximal to his wrist. There is no evidence of any acute inflammation or infection. There is no erythema, induration, warmth or fluid collection. He is neurovascularly intact throughout. All musculotendinous units are intact. There is no epitrochlear adenopathy. There is no evidence of any lymphangitic streaking. IMPRESSION: Phlebitis first dorsal distal forearm. I discussed the case with Dr. Marmolejo and the patient. We are going to do a phlebectomy as an outpatient this week. The patient is on his way home right now. He was supposed to go home yesterday but did not and he is on his way home today so he is going to see me in the office on Sunday or Sunday and we will get this done Sunday or now that his immune status has improved. We would like to do this in this way. Dr. Marmolejo and Doris are in agreement with the plan. I gave the patient my phone number and my business card and he knows to call on Sunday for an appointment. MD JOI Abel III/SHANNON /11:29 AM /12:40 PM
== END 2017-06-09 13:33 | disposition home health service (06) | DRG 834 ==
LOC: NEPE 11:32 → NEDA 15:25 → HOCA 16:35
PROVIDERS: ADMIT Hospitalist; ATTEND Hospitalist
PROC: 3E0F7GC Introduction of Other Therapeutic Substance into Respiratory Tract, Via Natural or Artificial Opening (ICD-10-PCS; principal; 2017-05-10)
PROC: 30233N1 Transfusion of Nonautologous Red Blood Cells into Peripheral Vein, Percutaneous Approach (ICD-10-PCS; 2017-05-11)
PROC: 07DR3ZX Extraction of Iliac Bone Marrow, Percutaneous Approach, Diagnostic (ICD-10-PCS; 2017-05-11)
PROC: 05HM33Z Insertion of Infusion Device into Right Internal Jugular Vein, Percutaneous Approach (ICD-10-PCS; 2017-05-14)
PROC: 3E03305 Introduction of Other Antineoplastic into Peripheral Vein, Percutaneous Approach (ICD-10-PCS; 2017-05-15)
PROC: 05HM33Z Insertion of Infusion Device into Right Internal Jugular Vein, Percutaneous Approach (ICD-10-PCS; 2017-05-18)
PROC: 6A551Z2 Pheresis of Platelets, Multiple (ICD-10-PCS; 2017-05-22)
PROC: 07DR3ZX Extraction of Iliac Bone Marrow, Percutaneous Approach, Diagnostic (ICD-10-PCS; 2017-06-05)
DX: C92.50 Acute myelomonocytic leukemia, not having achieved remission (principal); J18.9 Pneumonia, unspecified organism; J96.00 Acute respiratory failure, unspecified whether with hypoxia or hypercapnia; I47.2 Ventricular tachycardia; D61.818 Other pancytopenia; J90 Pleural effusion, not elsewhere classified; B37.0 Candidal stomatitis; R04.2 Hemoptysis; L03.112 Cellulitis of left axilla; L03.114 Cellulitis of left upper limb; R17 Unspecified jaundice; I48.2 Chronic atrial fibrillation; I80.8 Phlebitis and thrombophlebitis of other sites; I08.1 Rheumatic disorders of both mitral and tricuspid valves; H66.91 Otitis media, unspecified, right ear; R42 Dizziness and giddiness; Z79.02 Long term (current) use of antithrombotics/antiplatelets; I10 Essential (primary) hypertension; Z96.652 Presence of left artificial knee joint; R63.0 Anorexia; R63.4 Abnormal weight loss; E78.5 Hyperlipidemia, unspecified; M19.90 Unspecified osteoarthritis, unspecified site; D53.9 Nutritional anemia, unspecified; F10.10 Alcohol abuse, uncomplicated; H91.90 Unspecified hearing loss, unspecified ear; R04.0 Epistaxis; R13.10 Dysphagia, unspecified; T45.1X5A Adverse effect of antineoplastic and immunosuppressive drugs, initial encounter; Y92.230 Patient room in hospital as the place of occurrence of the external cause; L73.9 Follicular disorder, unspecified; R21 Rash and other nonspecific skin eruption
CPT/HCPCS: 36430; 36558; 38221; 71010; 71020; 71250; 73120; 76882; 76937; 76999; 77001; 77012; 80048; 80053; 80074; 80076; 80202; 81001; 81218; 81245; 81310; 82247; 82248; 82607; 82728; 82948; 83010; 83540; 83550; 83615; 83735; 83880; 84155; 84425; 84550; 85007; 85014; 85018; 85027; 85060; 85097; 85384; 85610; 85730; 86644; 86645; 86703; 86850; 86900; 86901; 86920; 86922; 86965; 87040; 87070; 87205; 87449; 88184; 88185; 88237; 88264; 88280; 88305; 88311; 88313; 88377; 93005; 93306; 94150; 94640; 94664; 96361; 96374; 99152; 99153; C1751; C1830; C9113; G0364; J0692; J1100; J1626; J1642; J1815; J1940; J2060; J2250; J2405; J3010; J3370; J3475; J7030; J7040; J7050; J9100; J9211; P9037; P9040

== ENCOUNTER → 2017-06-13 | Day surgery (SDC) | payer MEDICARE ==
[~2017-06-13] VITALS: Ht 180.3 cm; Wt 110.9 kg
[~2017-06-13] MED LIST changes: +AMLO5TAB2 PO; -AMLO5TAB22 PO; -ASPI325T PO; +ATOR20TA15 PO; -ATOR20TA42 PO; +BUPIVACAINE HCL PF 0.5% 30 ML VIAL ONE; +CEPH-460 PO; +CHLORHEXIDINE GLUCONATE 2 % 1 PACK (2 CLOTHS) TOPICAL PRN; +INSULIN HUMAN REGULAR 1,000 UNITS/10 ML VIAL SQ PRN; +LACTATED RINGER'S 1000 ML IV PRN; +LIDOCAINE HCL 2% 50 ML VIAL ONE; -LISI-363 PO; +LISI-515 PO; -LORTA5 PO; -METHO500 PO; -METO100T PO; +METO50TA PO; +METOPROLOL TARTRATE 25 MG TAB PO PRN; +NEOMYCIN/POLYMYXIN 1 ML G.U. IRRIGANT TOPICAL ONE; +NORC5TAB PO; +PHENYLEPH/NS 1000 MCG/10 ML SYR IV ONE; +POVIDONE IODINE 5% (ANTISEPSIS KIT) 4 APPLICATIONS EACH NARE PRN; -PRED20 PO; +PROPOFOL 200 MG/20 ML AMP IV ONE; +SODIUM CHLORID 0.9% 500 ML IV PRN; +SODIUM CHLORIDE 0.9% INJ 100 ML ONE; +ceFAZolin 1,000 MG/NS 100 ML IV SCH; +ceFAZolin INJ 1,000 MG VIAL ONE; +fentaNYL CITRATE 250 MCG/5 ML AMP ONE
[2017-06-13 11:26] VITALS: BP 129/82; PULSE 78; RESP 18; TEMP 98.1; O2SAT 96
[2017-06-13 12:03] LABS: AUTOMATED NEUTROPHIL # 6.1 TH/MM3 (1.8-7.7); BASOPHIL % 0.5 % (0.0-2.0); HEMATOCRIT 26.9 % (39.0-51.0); LYMPH % 12.8 % (9.0-44.0); LYMPHOCYTE # 1.1 TH/MM3 (1.0-4.8); MEAN CORPUSCULAR HEMOGLOBIN 28.7 PG (27.0-34.0); MEAN CORPUSCULAR HGB CONC 33.8 % (32.0-36.0); MONO % 16.8 % (0.0-8.0); NEUT % 69.9 % (16.0-70.0); PLATELET COUNT 570 TH/MM3 (150-450); RED BLOOD COUNT 3.16 MIL/MM3 (4.50-5.90); RED CELL DISTRIBUTION WIDTH 15.7 % (11.6-17.2); WHITE BLOOD COUNT 8.7 TH/MM3 (4.0-11.0)
[2017-06-13 12:06] LABS: HEMO FLAGS AUTO DIFF
[2017-06-13 12:42] LABS: BANDS 3 % (0-6); METAMYELOCYTES 1 % (0-1); NEUTROPHIL # MANUAL DIFF 6.4 TH/MM3 (1.8-7.7); POLYS (SEG NEUTROPHILS) 70 % (16-70); WBC DIFF SAMPLE 100
[2017-06-13 12:43] LABS: PLATELET ESTIMATE SMEAR HIGH (NORMAL); PLATELET MORPHOLOGY NORMAL (NORMAL); SCAN/DIFF FINAL DIFF MANUAL
[2017-06-13 14:00] VITALS: BP 116/71; PULSE 72; RESP 18; TEMP 97.8; O2SAT 98
--- NOTE | 2017-06-15 09:21 | MP ---
cc: KARTHIKEYAN BARRIENTOS III, M.D. DATE OF SURGERY 06/13/2017 PREOPERATIVE DIAGNOSIS Left forearm phlebitis, possible retained foreign body. PROCEDURE Left forearm pain/mass excision. SURGEON Karthikeyan Barrientos III, MD PROCEDURE The patient was brought to the operating room and placed supine on the operating table. After the correct site and side of surgery were verified by members of each team in the room multiple times including the patient, myself, and after adequate preop markings, preoperative written consent were verified by everyone and after adequate preoperative time-out was performed and after adequate IV sedation had been achieved, the left upper extremity was prepped and draped in the traditional sterile surgical fashion. A 50/50 mixture of 2% plain lidocaine and 0.5% plain Marcaine was infiltrated in the skin and subcutaneous tissue and then deep to the inflamed mass on the dorsal radial aspect of the forearm. The limb was elevated and the axillary tourniquet was inflated to 180 mmHg for a total of 35 minutes. A longitudinally oriented incision made overlying the long axis of the inflammation was made, carried down through skin and subcutaneous tissue. Blunt and sharp dissection was performed. A large inflamed vein was identified and dissected free from the surrounding inflamed tissue. Cultures were obtained. Using 2-0 silk stick tie was then done proximally and distally and on the specimen side, a 3-0 silk tie was used and the vein was then ligated between the two. There were some smaller branches that were easily controlled using bipolar electrocautery and then the large obviously inflamed section of vein was passed off the field as a specimen. There no other anatomic abnormalities. The axillary tourniquet was released. There is no active bleeding. A thorough irrigation with saline was performed. The skin edges were reapproximated using interrupted 3-0 nylon sutures widely spaced and a one-quarter inch Yoel drain brought out proximally in the wound. The hand and arm were thoroughly cleansed and dried. Betadine Adaptic dressing was applied on top of the wound, followed by a bulky soft sterile dressing circumferentially wrapped with a Sof-Rol and an Ayo bandage from the distal palm to the elbow to just distal to the elbow. The patient was awakened from anesthesia and transported to the Post Anesthesia Care Unit awake, alert and in stable condition at the end of the case. There was no hematoma formation or evidence of bleeding and hemostasis was present. The patient had capillary refill of less than two seconds in all fingertips. MD JOI Abel III/ÁNGELA /1:25 PM /9:11 AM
== END | disposition home or self-care (01) ==
LOC: HSDC 10:30
PROVIDERS: ATTEND Orthopaedic Surgery Hand Surgery
DX: I80.8 Phlebitis and thrombophlebitis of other sites (principal); B95.7 Other staphylococcus as the cause of diseases classified elsewhere; I10 Essential (primary) hypertension; E78.5 Hyperlipidemia, unspecified
CPT/HCPCS: 00400; 35206; 85007; 85027; 86403; 87015; 87070; 87077; 87102; 87116; 87186; 87205; 87206; 88304; J0690; J2370; J3010; 88305

== ENCOUNTER 2017-07-13 08:22 | Day surgery (SDC) | payer MEDICARE ==
[~2017-07-13] VITALS: Ht 180.3 cm; Wt 98.1 kg
[~2017-07-13 08:22] MED LIST changes: -BUPIVACAINE HCL PF 0.5% 30 ML VIAL ONE; -CEPH-460 PO; -CHLORHEXIDINE GLUCONATE 2 % 1 PACK (2 CLOTHS) TOPICAL PRN; -INSULIN HUMAN REGULAR 1,000 UNITS/10 ML VIAL SQ PRN; -LACTATED RINGER'S 1000 ML IV PRN; -LIDOCAINE HCL 2% 50 ML VIAL ONE; -METOPROLOL TARTRATE 25 MG TAB PO PRN; -NEOMYCIN/POLYMYXIN 1 ML G.U. IRRIGANT TOPICAL ONE; -PHENYLEPH/NS 1000 MCG/10 ML SYR IV ONE; -POVIDONE IODINE 5% (ANTISEPSIS KIT) 4 APPLICATIONS EACH NARE PRN; -PROPOFOL 200 MG/20 ML AMP IV ONE; -SODIUM CHLORID 0.9% 500 ML IV PRN; -SODIUM CHLORIDE 0.9% INJ 100 ML ONE; -ceFAZolin 1,000 MG/NS 100 ML IV SCH; -ceFAZolin INJ 1,000 MG VIAL ONE; -fentaNYL CITRATE 250 MCG/5 ML AMP ONE
[2017-07-13 08:39] VITALS: BP 145/75; PULSE 79; RESP 18; TEMP 97.7; O2SAT 97
[2017-07-13] MEDS ORDERED: ASPI81CH37 CHEW (08:51)
[2017-07-13] MEDS ORDERED: APIX5TAB PO (08:51)
[2017-07-13] MEDS ORDERED: SODIUM CHLOR 0.9% 1000 ML IV SCH (09:00)
[2017-07-13 09:19] LABS: AUTOMATED NEUTROPHIL # 5.8 TH/MM3 (1.8-7.7); BASOPHIL % 0.2 % (0.0-2.0); EOSINOPHIL # 0.2 TH/MM3 (0-0.4); EOSINOPHIL % 2.8 % (0.0-4.0); HEMATOCRIT 39.6 % (39.0-51.0); HEMO FLAGS DIFF FINAL; LYMPH % 18.7 % (9.0-44.0); LYMPHOCYTE # 1.5 TH/MM3 (1.0-4.8); MEAN CELL VOLUME 86.4 FL (80.0-100.0); MEAN CORPUSCULAR HEMOGLOBIN 28.9 PG (27.0-34.0); MEAN CORPUSCULAR HGB CONC 33.4 % (32.0-36.0); MONO % 7.2 % (0.0-8.0); NEUT % 71.1 % (16.0-70.0); PLATELET COUNT 155 TH/MM3 (150-450); RED BLOOD COUNT 4.58 MIL/MM3 (4.50-5.90); RED CELL DISTRIBUTION WIDTH 15.7 % (11.6-17.2); WHITE BLOOD COUNT 8.1 TH/MM3 (4.0-11.0)
[2017-07-13 09:36] LABS: APTT (PATIENT) 25.7 SEC (24.3-30.1); PROTHROMBIN TIME - PATIENT 11.2 SEC (9.8-11.6)
[2017-07-13] MEDS ORDERED: MIDAZOLAM HCL 2 MG/2 ML VIAL ONE (12:14)
[2017-07-13] MEDS ORDERED: fentaNYL CITRATE 250 MCG/5 ML AMP ONE (12:14)
[2017-07-13] MEDS ORDERED: LIDOCAINE HCL 1% 20 ML VIAL ONE (12:18)
--- NOTE | 2017-07-13 12:43 | PD.RAD ---
Post CT Procedure Prog Note Pre Procedure Diagnosis: (1) Acute myelomonocytic leukemia Post Procedure Diagnosis: (1) Acute myelomonocytic leukemia Procedure Date: Jul 13, 2017 Supervising Radiologist: Parker Dempsey Estimated blood loss: <5 ml Plan of Activity Patient to Unit: [facility] Patient Condition: Good Additional Comments: Left iliac bm bx See PACS Report for procedural detail/treatment Parker Dempsey MD Jul 13, 2017 12:43
[2017-07-13 12:55] VITALS: BP 123/69; PULSE 86; RESP 20; TEMP 98; O2SAT 98
[2017-07-13 13:15] VITALS: BP 125/68; PULSE 68; RESP 20; O2SAT 91
[2017-07-13 13:43] LABS: BONE MARROW PROCESSING COMPLETE; JENNER GIEMSA STAIN DONE
[2017-07-13 13:44] LABS: IRON STAIN DONE
[2017-07-13 13:45] VITALS: BP 141/74; PULSE 69; RESP 20; O2SAT 95
--- NOTE | 2017-07-13 13:46 | RADRPT ---
EXAM DATE/TIME: 07/13/2017 12:30 [facility] COMPARISON: CT NEEDLE BIOPSY BONE MARROW, June 05, 2017, 13:49. INDICATIONS : Acute myelomonocytic leukemia. SEDATION TIME: 30 minutes BIOPSY SITE: Left MEDICATION(S): 1.) 2 mg midazolam (Versed) IV 2.) 100 mcg fentanyl (Sublimaze) IV DEVICE(S): 1.) 11 gauge Bone marrow biopsy needle MEDICAL HISTORY : Leukemia. Hypertension. SURGICAL HISTORY : Cholecystectomy ENCOUNTER: Initial ACUITY: 1 day PAIN SCORE: 0/10 LOCATION: Left A total of one core specimen(s) were obtained and sent to the laboratory for pathologic evaluation. PROCEDURE: 1. CT guided bone marrow biopsy. 2. Conscious sedation with continuous EKG and oximetry monitoring. 3. EKG and oximetry remained stable throughout the procedure. Prior to the procedure informed consent was obtained. Any appropriate prior imaging studies were rev iewed. Using automated exposure control and adjustment of the mA and/or kV according to patient size , radiation dose was kept as low as reasonably achievable to obtain optimal diagnostic quality images . DICOM format image data is available electronically for review and comparison. The site was prepped in a sterile fashion. Full sterile technique was used, including cap, mask, george rile gloves and gown and a large sterile sheet. Hand hygiene and 2% chlorhexidine and/or betadine/al cohol prep was utilized per protocol for cutaneous antisepsis. The skin and subcutaneous tissues wer e infiltrated with local anesthetic solution. With CT guidance the previously identified target was localized. Biopsy was performed using the presc ribed needle as above. Following biopsy marrow aspiration was performed with repeat puncture. Adequa te hemostasis was obtained with compression at the puncture site. Follow-up CT scan reveals no hemorrhage. Conscious sedation was performed with the prescribed dosages and duration as above in the presence of an independent trained radiology nurse to assist in the monitoring of the patient. EKG and oximetry remained stable throughout the procedure. The patient tolerated the procedure well and there were no complications. The patient was sent to Radiology Outpatient Unit in stable condition. CONCLUSION: 1. Uncomplicated CT guided bone marrow aspirate. 2. Uncomplicated CT guided bone marrow biopsy. Parker Dempsey MD on July 13, 2017 at 13:45 Board Certified Radiologist. This report was verified electronically.
[2017-07-13 14:15] VITALS: BP 143/78; PULSE 69; RESP 20; O2SAT 92
[2017-07-13 14:45] VITALS: BP 140/83; PULSE 71; RESP 20; O2SAT 92
== END 2017-07-13 12:55 | disposition home or self-care (01) ==
LOC: HRIP 08:22 → HRAD 08:22
PROVIDERS: ATTEND Internal Medicine Hematology & Oncology
DX: C92.50 Acute myelomonocytic leukemia, not having achieved remission (principal); I10 Essential (primary) hypertension; I48.91 Unspecified atrial fibrillation; Z79.01 Long term (current) use of anticoagulants; Z79.82 Long term (current) use of aspirin; Z79.899 Other long term (current) drug therapy
CPT/HCPCS: 38221; 77012; 85025; 85097; 85610; 85730; 88184; 88185; 88237; 88264; 88280; 88305; 88311; 88313; 99152; 99153; C1830; G0364; J2250; J3010; J7030

== ENCOUNTER 2017-07-31 09:23 | Inpatient (IN) | payer MEDICARE ==
[~2017-07-31] VITALS: Ht 180.3 cm; Wt 114.4 kg
[~2017-07-31 09:23] MED LIST changes: +APIX5TAB PO; +ASPI81CH37 CHEW
[2017-07-31 11:11] VITALS: BP 107/77; PULSE 69; RESP 18; TEMP 97; O2SAT 99
[2017-07-31] MEDS ORDERED: SENNOSIDES 8.6 MG TAB PO PRN (11:45)
[2017-07-31] MEDS ORDERED: MAGNESIUM HYDROXIDE SUSP 30 ML CUP PO PRN (11:45)
[2017-07-31] MEDS ORDERED: ACETAMINOPHEN 325 MG TAB PO PRN (11:45)
[2017-07-31] MEDS ORDERED: NALOXONE HCL 0.4 MG/ML AMP IV PRN (11:45)
[2017-07-31] MEDS ORDERED: SODIUM CHLORIDE 0.9% FLUSH 10 ML FLUSH IV FLUSH PRN (11:45)
[2017-07-31] MEDS ORDERED: LACTULOSE SYRUP 20 GM/30 ML CUP PO PRN (11:45)
[2017-07-31] MEDS ORDERED: ONDANSETRON HCL 4 MG/2 ML VIAL IVP PRN (11:45)
[2017-07-31] MEDS ORDERED: PROCHLORPERAZINE 25 MG SUPP RECTAL PRN (11:45)
[2017-07-31] MEDS ORDERED: BISACODYL 10 MG SUPP RECTAL PRN (11:45)
[2017-07-31 16:00] VITALS: BP 101/59; PULSE 80; RESP 16; TEMP 97.8; O2SAT 99
[2017-07-31 16:26] LABS: AUTOMATED NEUTROPHIL # 3.8 TH/MM3 (1.8-7.7); BASOPHIL % 0.8 % (0.0-2.0); EOSINOPHIL # 0.1 TH/MM3 (0-0.4); EOSINOPHIL % 2.2 % (0.0-4.0); HEMATOCRIT 40.4 % (39.0-51.0); HEMO FLAGS DIFF FINAL; LYMPHOCYTE # 1.5 TH/MM3 (1.0-4.8); MEAN CELL VOLUME 87.6 FL (80.0-100.0); MEAN CORPUSCULAR HEMOGLOBIN 28.9 PG (27.0-34.0); PLATELET COUNT 180 TH/MM3 (150-450); RED BLOOD COUNT 4.61 MIL/MM3 (4.50-5.90); RED CELL DISTRIBUTION WIDTH 14.9 % (11.6-17.2); WHITE BLOOD COUNT 5.9 TH/MM3 (4.0-11.0)
[2017-07-31 16:53] LABS: ANION GAP 7 MEQ/L (5-15); AST (GOT) 15 U/L (15-37); BICARBONATE 26.8 MEQ/L (21.0-32.0); BLOOD UREA NITROGEN 23 MG/DL (7-18); CHLORIDE 105 MEQ/L (98-107); GLOMERULAR FILTRATION RATE 79 ML/MIN (>89); POTASSIUM 4.2 MEQ/L (3.5-5.1); SODIUM (NA) 139 MEQ/L (136-145)
[2017-07-31 16:54] LABS: ALT (GPT) 18 U/L (12-78)
[2017-07-31 16:56] LABS: ALKALINE PHOSPHATASE 54 U/L (45-117); TOTAL BILIRUBIN ADULT 0.9 MG/DL (0.2-1.0)
--- NOTE | 2017-07-31 19:01 | RADRPT ---
EXAM DATE/TIME: 07/31/2017 18:49 [facility] COMPARISON: CHEST SINGLE AP, May 23, 2017, 11:16. INDICATIONS : Post PICC line placement. MEDICAL HISTORY : Cardiovascular disease. SURGICAL HISTORY : None. ENCOUNTER: Initial ACUITY: 1 day PAIN SCORE: 0/10 LOCATION: Bilateral chest FINDINGS: A single view of the chest demonstrates the lungs to be symmetrically aerated without evidence of mas s, infiltrate or effusion. The cardiomediastinal contours are unremarkable. Osseous structures are intact. There is a right arm PICC with tip at the atriocaval junction. CONCLUSION: Right arm PICC has its tip at the atriocaval junction. No pneumothorax or other acute cardiopulmonary disease. Emerson Jackson MD on July 31, 2017 at 18:59 Board Certified Radiologist. This report was verified electronically.
[2017-07-31] MEDS: DEXAMETHASONE SOD PHOS 0.1% OPHT SOLN 5 ML BTL EACH EYE SCH ×2 (19:21→21:00)
[2017-07-31 20:00] VITALS: BP 103/66; PULSE 86; RESP 17; TEMP 96.8; O2SAT 99
[2017-07-31] MEDS ORDERED: GRANISETRON HCL 1 MG/ML VIAL IV SCH (20:30)
[2017-07-31] MEDS ORDERED: DEXAMETHASONE SOD PHOS 20 MG/5 ML VIAL IV SCH (20:30)
[2017-07-31] MEDS: DOCUSATE SODIUM 50 MG/SENNA 8.6 MG TAB PO SCH (20:58)
[2017-07-31] MEDS: APIXABAN 5 MG TABLET PO SCH (21:00)
[2017-07-31] MEDS: SODIUM CHLOR 0.9% 1000 ML INJ 1,000 ML IV SCH (21:00)
[2017-07-31] MEDS: SODIUM CHLORIDE 0.9% FLUSH 10 ML FLUSH IV FLUSH SCH (21:00)
[2017-07-31] MEDS: SODIUM CHLORIDE 0.9% IV SCH (21:01)
[2017-07-31] MEDS: GRANISETRON IV SCH (21:01)
[2017-07-31] MEDS: DEXAMETHASONE IV SCH (21:01)
--- NOTE | 2017-07-31 21:28 | MH ---
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 TREATMENT HISTORY TO DATE The patient is status post induction remission therapy with idarubicin / cytarabine (3+7) completed in April of 2017. CURRENT DISEASE STATUS: Restaging bone marrow biopsy indicates complete remission. CHIEF COMPLAINT / INTERVAL HISTORY Mr. Gutiérrez presents for an elective admission for consolidation cycle number one with high-dose cytarabine (HIDAC) He specifically denies fevers, night sweats, chills or weight loss. HISTORY OF PRESENT ILLNESS Mr. Gutiérrez is a very pleasant 66-year-old man who initially presented to [facility] in April of 2017 with complaints of fatigue. He was noted to have pancytopenia which was unexplained and peripheral blood smear indicated presence of myeloid blasts / monocytic blasts. A bone marrow biopsy was performed and that revealed findings consistent with AMML associated with the inversion 16 / core binding factor translocation. He was treated with induction systemic chemotherapy with idarubicin and cytarabine and remission was achieved. He comes in today for consolidation treatment. PAST MEDICAL HISTORY 1. AMML. 2. Hypertension. 3. Atrial fibrillation. 4. Valvular heart disease. PAST SURGICAL HISTORY 1. Hernia repair. 2. Knee surgery. 3. Cholecystectomy. 4. I&D of a cyst on the left forearm. FAMILY HISTORY Father of strokes, mother at a young age in a house fire. SOCIAL HISTORY The patient is single. He lives at home with his roommate. He is originally from [place] where he worked for the [employer]. He previously drank three or four beers daily but now drinks only on weekends or rarely at all. ALLERGIES NO KNOWN DRUG ALLERGIES. MEDICATIONS Current outpatient medications: 1. Eliquis 5 milligrams twice a day. 2. Atorvastatin 20 milligrams once a day. 3. Metoprolol 50 milligrams extended release once a day. 4. Amlodipine 5 milligrams once a day. 5. Lisinopril 20 milligrams once a day. 6. Aspirin 81 milligrams once a day. 7. Hydrocodone / acetaminophen 5/325 every six hours as needed for pain. REVIEW OF SYSTEMS A 13 point review of symptoms were obtained. The patient denies any acute complaints. His major issues are chronic loss of hearing. He reports some fatigue. He denies changes to his appetite. He denies fever, chills or night sweats. He denies weight loss. He denies overt bleeding. Denies difficulty breathing, chest pain, paroxysmal nocturnal dyspnea, orthopnea. Denies nausea, vomiting, diarrhea, hematochezia or melena. Denies having any focal sensory or motor deficits or any skin lesions. PHYSICAL EXAMINATION VITAL SIGNS: Indicate weight of 98 kilograms. Temperature 98.5 degrees Fahrenheit, heart rate 75 beats minute, blood pressure is 140/83, O2 sats are 95% on room air, respiratory rate 20 breaths per minute. GENERAL: Mr. Gutiérrez is an elderly male, he is medium height and is heavy-set, appears to be in no acute distress and has a pleasant disposition. He is hard of hearing. HEENT: Head atraumatic, normocephalic. Conjunctive are non pale. Sclerae are anicteric, EOMI, PERRLA. Oral exam no pharyngeal erythema. NECK: No palpable cervical or supraclavicular adenopathy. LUNGS: Good air movement bilaterally. No added breath sounds. CARDIOVASCULAR: Regular rhythm, S1-S2. No obvious murmurs, rubs or gallops (A fib is not noted on today's exam). ABDOMEN: Protuberant belly, soft, no palpable organ enlargement. He does have midline surgical incision scars noted. He has no hepatosplenomegaly. EXTREMITIES: Lower extremities no pretibial edema or calf tenderness. CENTRAL NERVOUS SYSTEM: No focal sensory or motor deficits other than his hearing loss which is chronic. LABORATORY FINDINGS Blood work dated 07/13/2017: WBC count 8.1, hemoglobin 13.2 gm/dl, hematocrit 40%, platelet count 155, absolute neutrophil count is 5.8. Chemistries are pending at this time. PATHOLOGY Bone marrow biopsy dated 07/13/2017 indicates normal cellular bone marrow with trilineage maturation. Negative for acute myeloid leukemia. Flow cytometry of the bone marrow aspirate indicates no evidence of neoplastic leukocytes population consistent with a remission bone marrow. Morphologic features noted in the bone marrow are consistent with this finding as well. ASSESSMENT Mr. 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 The patient's cytogenetics were positive for inversion 16 and negative for FLT3. He is status post induction remission therapy with idarubicin / cytarabine (3+7). He comes in today for cycle #1 consolidation treatment with HIDAC. RECOMMENDATIONS 1. AMML: Proceed with central line placement. Obtain baseline CBC and CMP and initiate high-dose cytarabine therapy. I will dose him according to the NCCN guidelines approved treatment protocols. 2. Hypertension, A Fib and hyperlipidemia: Continue anticoagulation with Eliquis so long as his platelet counts remain over 50,000. Continue metoprolol, amlodipine and lisinopril to maintain normal blood pressure. 3. I will start him on IV fluids and corticosteroid eye drops for management of cytarabine associated conjunctivitis. MD KUSH Shin/KK /11:21 AM /9:03 PM
[2017-07-31] MEDS: CYTARABINE IV SCH (22:11)
[2017-07-31] MEDS: SODIUM CHLORID 0.9% IV SCH (22:11)
[2017-08-01] VITALS: BP 103/68; PULSE 80; RESP 18; TEMP 96.5; O2SAT 100
[2017-08-01 04:00] VITALS: BP 106/65; PULSE 78; RESP 18; TEMP 96.5; O2SAT 100
[2017-08-01 07:50] VITALS: BP 126/60; PULSE 100; RESP 20; TEMP 97.8; O2SAT 96
--- NOTE | 2017-08-01 07:55 | PD.ONC.PN ---
Subjective Subjective Remarks Pt seen and examined, he denies acute complaints. Day 1 HiDAC was delivered last night. He denies n/v/d, fevers or chills. R arm PICC line placed yesterday without complications. He tells me he is hungry and is ordering breakfast. Objective Data Date Time Temp Pulse Resp B/P (MAP) Pulse Ox O2 Delivery O2 Flow Rate FiO2 08/01/17 04:00 96.5 78 18 106/65 (79) 100 08/01/17 00:00 96.5 80 18 103/68 (80) 100 07/31/17 20:00 96.8 86 17 103/66 (78) 99 07/31/17 16:00 97.8 80 16 101/59 (73) 99 07/31/17 11:11 97.0 69 18 107/77 (87) 99 08/01/17 08/01/17 08/01/17 07:00 15:00 23:00 Output Total 350 ml Balance -350 ml Result Diagram: 07/31/17 1414 07/31/17 1414 Laboratory Results Laboratory Tests Test 07/31/17 14:14 White Blood Count 5.9 TH/MM3 Red Blood Count 4.61 MIL/MM3 Hemoglobin 13.3 GM/DL Hematocrit 40.4 % Mean Corpuscular Volume 87.6 FL Mean Corpuscular Hemoglobin 28.9 PG Mean Corpuscular Hemoglobin Concent 33.0 % Red Cell Distribution Width 14.9 % Platelet Count 180 TH/MM3 Mean Platelet Volume 7.4 FL Neutrophils (%) (Auto) 65.0 % Lymphocytes (%) (Auto) 26.0 % Monocytes (%) (Auto) 6.0 % Eosinophils (%) (Auto) 2.2 % Basophils (%) (Auto) 0.8 % Neutrophils # (Auto) 3.8 TH/MM3 Lymphocytes # (Auto) 1.5 TH/MM3 Monocytes # (Auto) 0.4 TH/MM3 Eosinophils # (Auto) 0.1 TH/MM3 Basophils # (Auto) 0.0 TH/MM3 CBC Comment DIFF FINAL Differential Comment Blood Urea Nitrogen 23 MG/DL Creatinine 0.96 MG/DL Random Glucose 82 MG/DL Total Protein 6.8 GM/DL Albumin 3.8 GM/DL Calcium Level 9.0 MG/DL Alkaline Phosphatase 54 U/L Aspartate Amino Transf (AST/SGOT) 15 U/L Alanine Aminotransferase (ALT/SGPT) 18 U/L Total Bilirubin 0.9 MG/DL Sodium Level 139 MEQ/L Potassium Level 4.2 MEQ/L Chloride Level 105 MEQ/L Carbon Dioxide Level 26.8 MEQ/L Anion Gap 7 MEQ/L Estimat Glomerular Filtration Rate 79 ML/MIN Administered Medications Medications (Trade) Dose Ordered Sig/Maritza Route PRN Reason Start Time Stop Time Status Last Admin Dose Admin Sodium Chloride 1,000 ml @ 42 mls/hr [id number] IV 07/31/17 11:37 07/31/17 21:00 Sodium Chloride (NS Flush) 2 ml BID IV FLUSH 07/31/17 21:00 07/31/17 21:00 Senna/Docusate Sodium (Cinthia-Colace) 1 tab BID PO 07/31/17 21:00 07/31/17 20:58 Dexamethasone Sodium Phosphate (Decadron Opth 0.1% Soln) 2 drop QID EACH EYE 07/31/17 18:00 08/07/17 13:01 07/31/17 21:00 Cytarabine 2300 mg/Sodium Chloride 500 ml @ 166.667 mls/hr Q24H IV 07/31/17 21:00 08/03/17 23:59 07/31/17 22:11 Dexamethasone Sodium Phosphate 12 mg/Granisetron HCl 1 mg/Sodium Chloride 54 ml @ 324 mls/hr Q24H IV 07/31/17 20:30 08/03/17 20:39 07/31/17 21:01 Objective Remarks GENERAL: Mr. Gutiérrez is an elderly male, he is medium height and is heavy-set, appears to be in no acute distress and has a pleasant disposition. He is hard of hearing. HEENT: Head atraumatic, normocephalic. Conjunctive are non pale. Sclerae are anicteric, EOMI, PERRLA. Oral exam no pharyngeal erythema. NECK: No palpable cervical or supraclavicular adenopathy. LUNGS: Good air movement bilaterally. No added breath sounds. CARDIOVASCULAR: Regular rhythm, S1-S2. No obvious murmurs, rubs or gallops (A fib is not noted on today's exam). ABDOMEN: Protuberant belly, soft, no palpable organ enlargement. He does have midline surgical incision scars noted. He has no hepatosplenomegaly. EXTREMITIES: Lower extremities no pretibial edema or calf tenderness. CENTRAL NERVOUS SYSTEM: No focal sensory or motor deficits other than his hearing loss which is chronic. Assessment/Plan Assessment Mr. 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 The patient's cytogenetics were positive for inversion 16 and negative for FLT3. He is status post induction remission therapy with idarubicin / cytarabine (3+7). He comes in today for cycle #1 consolidation treatment with HIDAC. Plan 1. AMML: Continue consolidation cycle 1 with HiDAC dosed at 1000mg/m2; BSA calculated at 2.3m2. Daily infusions x 4 days. The plan is to treat him with 2 cycles of consolidation at least. Dexamethasone eye drops for cytarabine related conjunctivitis. 2. Afib: Continue therapeutic anticoagulation with eliquis and rate control with metoprolol. 3. HTN: Controlled with oral antihypertensives. 4. NS @ 42mL/hr for hydration. Tolerating treatment without complications thus far. Dwain Diez MD Aug 01, 2017 07:55
[2017-08-01] MEDS ORDERED: LISINOPRIL 20 MG TAB PO SCH (09:00)
[2017-08-01] MEDS: SODIUM CHLORIDE 0.9% FLUSH 10 ML FLUSH IV FLUSH SCH ×3 (09:00→21:05)
[2017-08-01] MEDS: DOCUSATE SODIUM 50 MG/SENNA 8.6 MG TAB PO SCH ×2 (09:58→20:56)
[2017-08-01] MEDS: DEXAMETHASONE SOD PHOS 0.1% OPHT SOLN 5 ML BTL EACH EYE SCH ×4 (09:58→20:54)
[2017-08-01] MEDS: ATORVASTATIN 20 MG TAB PO SCH (09:58)
[2017-08-01] MEDS: APIXABAN 5 MG TABLET PO SCH ×2 (09:59→20:55)
[2017-08-01] MEDS: METOPROLOL SUCCINATE 50 MG EXTENDED RELEASE TAB PO SCH (09:59)
[2017-08-01 11:50] VITALS: BP 103/67; PULSE 79; RESP 20; TEMP 97.5; O2SAT 97
[2017-08-01 15:50] VITALS: BP 113/74; PULSE 79; RESP 20; TEMP 96.8; O2SAT 96
[2017-08-01] MEDS: SODIUM CHLOR 0.9% 1000 ML INJ 1,000 ML IV SCH ×2 (17:56→20:57)
[2017-08-01 20:00] VITALS: BP 102/71; PULSE 77; RESP 18; TEMP 96.7; O2SAT 97
[2017-08-01] MEDS: SODIUM CHLORIDE 0.9% IV SCH (20:54)
[2017-08-01] MEDS: DEXAMETHASONE IV SCH (20:54)
[2017-08-01] MEDS: GRANISETRON IV SCH (20:54)
[2017-08-01] MEDS: SODIUM CHLORID 0.9% IV SCH (21:42)
[2017-08-01] MEDS: CYTARABINE IV SCH (21:42)
[2017-08-02] VITALS: BP 102/55; PULSE 71; RESP 18; TEMP 96.8; O2SAT 98
[2017-08-02 04:00] VITALS: BP 95/58; PULSE 84; RESP 17; TEMP 96.5; O2SAT 94
[2017-08-02 07:50] VITALS: BP_SYST 120; BP_SYST 139; BP_DIAS 74; BP_DIAS 81; PULSE 77; PULSE 81; RESP 20; TEMP 96.1; TEMP 97.5; O2SAT 97; O2SAT 98
[2017-08-02] MEDS: DOCUSATE SODIUM 50 MG/SENNA 8.6 MG TAB PO SCH ×2 (07:58→20:09)
[2017-08-02] MEDS: ATORVASTATIN 20 MG TAB PO SCH (07:58)
[2017-08-02] MEDS: METOPROLOL SUCCINATE 50 MG EXTENDED RELEASE TAB PO SCH (07:59)
[2017-08-02] MEDS: DEXAMETHASONE SOD PHOS 0.1% OPHT SOLN 5 ML BTL EACH EYE SCH ×4 (08:00→20:09)
[2017-08-02] MEDS: SODIUM CHLORIDE 0.9% FLUSH 10 ML FLUSH IV FLUSH SCH ×3 (08:00→20:10)
[2017-08-02] MEDS: SODIUM CHLORIDE 0.9% FLUSH 10 ML FLUSH IV FLUSH PRN (08:01)
--- NOTE | 2017-08-02 08:34 | PD.ONC.PN ---
Subjective Subjective Remarks Patient seen and examined, he denies acute complaints, tolerating chemotherapy well. He is eating well and denies difficulty breathing. He tells me he has not moved his bowels since he has been in the hospital. He is looking forward to go home as soon as his chemotherapy infusions are completed tomorrow night. Objective Data Date Time Temp Pulse Resp B/P (MAP) Pulse Ox O2 Delivery O2 Flow Rate FiO2 08/02/17 04:00 96.5 84 17 95/58 (70) 94 08/02/17 00:00 96.8 71 18 102/55 (71) 98 08/01/17 20:00 96.7 77 18 102/71 (81) 97 08/01/17 15:50 96.8 79 20 113/74 (87) 96 08/01/17 11:50 97.5 79 20 103/67 (79) 97 08/02/17 08/02/17 08/02/17 07:00 15:00 23:00 Intake Total 1429 ml Output Total 840 ml Balance 589 ml Result Diagram: 07/31/17 1414 07/31/17 1414 Administered Medications Medications (Trade) Dose Ordered Sig/Maritza Route PRN Reason Start Time Stop Time Status Last Admin Dose Admin Sodium Chloride 1,000 ml @ 42 mls/hr [id number] IV 07/31/17 11:37 08/01/17 20:57 Sodium Chloride (NS Flush) 2 ml BID IV FLUSH 07/31/17 21:00 08/01/17 21:05 Senna/Docusate Sodium (Cinthia-Colace) 1 tab BID PO 07/31/17 21:00 08/02/17 07:58 Apixaban (Eliquis) 5 mg BID PO 07/31/17 21:00 08/01/17 09:59 Atorvastatin Calcium (Lipitor) 20 mg DAILY PO 08/01/17 09:00 08/02/17 07:58 Metoprolol Succinate (Toprol Xl) 50 mg DAILY PO 08/01/17 09:00 08/02/17 07:59 Dexamethasone Sodium Phosphate (Decadron Opth 0.1% Soln) 2 drop QID EACH EYE 07/31/17 18:00 08/07/17 13:01 08/02/17 08:00 Cytarabine 2300 mg/Sodium Chloride 500 ml @ 166.667 mls/hr Q24H IV 07/31/17 21:00 08/03/17 23:59 08/01/17 21:42 Dexamethasone Sodium Phosphate 12 mg/Granisetron HCl 1 mg/Sodium Chloride 54 ml @ 324 mls/hr Q24H IV 07/31/17 20:30 08/03/17 20:39 08/01/17 20:54 Heparin Sodium (Porcine) (Heparin Central Flush) See Protocol DAILY IV FLUSH 08/01/17 09:00 08/01/17 10:02 Objective Remarks GENERAL: Mr. Gutiérrez is an elderly male, he is medium height and is heavy-set, appears to be in no acute distress and has a pleasant disposition. He is hard of hearing. HEENT: Head atraumatic, normocephalic. Conjunctive are non pale. Sclerae are anicteric, EOMI, PERRLA. Oral exam no pharyngeal erythema. NECK: No palpable cervical or supraclavicular adenopathy. LUNGS: Good air movement bilaterally. No added breath sounds. CARDIOVASCULAR: Regular rhythm, S1-S2. No obvious murmurs, rubs or gallops (A fib is not noted on today's exam). ABDOMEN: Protuberant belly, soft, no palpable organ enlargement. He does have midline surgical incision scars noted. He has no hepatosplenomegaly. EXTREMITIES: Lower extremities no pretibial edema or calf tenderness. CENTRAL NERVOUS SYSTEM: No focal sensory or motor deficits other than his hearing loss which is chronic. Assessment/Plan Assessment Mr. 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 The patient's cytogenetics were positive for inversion 16 and negative for FLT3. He is status post induction remission therapy with idarubicin / cytarabine (3+7). He comes in today for cycle #1 consolidation treatment with HIDAC. Plan 1. AMML: Continue consolidation cycle 1 with HiDAC dosed at 1000mg/m2; BSA calculated at 2.3m2. Daily infusions x 4 days. The plan is to treat him with 2 cycles of consolidation at least. Dexamethasone eye drops for cytarabine related conjunctivitis. 2. Afib: Continue rate controlled with metoprolol, he tells me Jose Antonio was d/ vargas and he was transitioned to ASA 162mg po daily. 3. HTN: Controlled with metoprolol and lisinopril. B/c his systolic bp was low and has been trending low; I have d/vargas the lisinopril for now. 4. NS @ 42mL/hr for hydration. Tolerating treatment without complications thus far. Plan to d/c home following day 4 infusion. Dwain Diez MD Aug 02, 2017 08:34
[2017-08-02] MEDS: ASPIRIN EC 81 MG TABEC PO SCH (09:00)
[2017-08-02 11:50] VITALS: BP 112/72; PULSE 78; RESP 20; TEMP 96.7; O2SAT 99
[2017-08-02 15:50] VITALS: BP 113/72; PULSE 69; RESP 20; TEMP 97.1; O2SAT 98
[2017-08-02 20:04] VITALS: BP 111/72; PULSE 64; RESP 18; TEMP 96.2; O2SAT 98
[2017-08-02] MEDS: GRANISETRON IV SCH (20:53)
[2017-08-02] MEDS: SODIUM CHLORIDE 0.9% IV SCH (20:53)
[2017-08-02] MEDS: DEXAMETHASONE IV SCH (20:53)
[2017-08-02] MEDS: CYTARABINE IV SCH (21:41)
[2017-08-02] MEDS: SODIUM CHLORID 0.9% IV SCH (21:41)
[2017-08-02] MEDS: SODIUM CHLOR 0.9% 1000 ML INJ 1,000 ML IV SCH (22:37)
[2017-08-03] VITALS: BP 115/65; PULSE 79; RESP 18; TEMP 97.1; O2SAT 98
[2017-08-03 04:00] VITALS: BP 123/85; PULSE 67; RESP 20; TEMP 98.2; O2SAT 99
[2017-08-03] MEDS: DEXAMETHASONE SOD PHOS 0.1% OPHT SOLN 5 ML BTL EACH EYE SCH ×4 (07:36→21:44)
[2017-08-03] MEDS: DOCUSATE SODIUM 50 MG/SENNA 8.6 MG TAB PO SCH ×2 (07:36→21:00)
[2017-08-03] MEDS: METOPROLOL SUCCINATE 50 MG EXTENDED RELEASE TAB PO SCH (07:36)
[2017-08-03] MEDS: ATORVASTATIN 20 MG TAB PO SCH (07:36)
[2017-08-03] MEDS: SODIUM CHLORIDE 0.9% FLUSH 10 ML FLUSH IV FLUSH SCH ×3 (07:36→21:45)
[2017-08-03] MEDS: ASPIRIN EC 81 MG TABEC PO SCH (07:36)
[2017-08-03] MEDS: SODIUM CHLORIDE 0.9% FLUSH 10 ML FLUSH IV FLUSH PRN (07:37)
[2017-08-03 07:40] LABS: AUTOMATED NEUTROPHIL # 4.4 TH/MM3 (1.8-7.7); BASOPHIL % 0.1 % (0.0-2.0); EOSINOPHIL % 0.1 % (0.0-4.0); HEMO FLAGS DIFF FINAL; LYMPH % 8.1 % (9.0-44.0); LYMPHOCYTE # 0.4 TH/MM3 (1.0-4.8); MEAN CELL VOLUME 87.1 FL (80.0-100.0); MEAN CORPUSCULAR HEMOGLOBIN 28.9 PG (27.0-34.0); MEAN CORPUSCULAR HGB CONC 33.2 % (32.0-36.0); MONO % 1.3 % (0.0-8.0); NEUT % 90.4 % (16.0-70.0); PLATELET COUNT 126 TH/MM3 (150-450); RED BLOOD COUNT 4.36 MIL/MM3 (4.50-5.90); RED CELL DISTRIBUTION WIDTH 14.7 % (11.6-17.2); WHITE BLOOD COUNT 4.9 TH/MM3 (4.0-11.0)
[2017-08-03 07:49] LABS: ALKALINE PHOSPHATASE 46 U/L (45-117); ALT (GPT) 17 U/L (12-78); ANION GAP 7 MEQ/L (5-15); AST (GOT) 10 U/L (15-37); BICARBONATE 24.6 MEQ/L (21.0-32.0); BLOOD UREA NITROGEN 19 MG/DL (7-18); CHLORIDE 106 MEQ/L (98-107); GLOMERULAR FILTRATION RATE 96 ML/MIN (>89); POTASSIUM 4.3 MEQ/L (3.5-5.1); SODIUM (NA) 138 MEQ/L (136-145); TOTAL BILIRUBIN ADULT 0.9 MG/DL (0.2-1.0)
[2017-08-03 08:00] VITALS: BP 143/78; PULSE 73; RESP 18; TEMP 96.1; O2SAT 99
[2017-08-03 12:00] VITALS: BP 139/80; PULSE 79; RESP 18; TEMP 96.9; O2SAT 100
[2017-08-03 16:00] VITALS: BP 118/80; PULSE 63; RESP 18; TEMP 96.6; O2SAT 100
--- NOTE | 2017-08-03 18:47 | PD.ONC.PN ---
Subjective Subjective Remarks Patient seen and examined, vital signs, medications and labs reviewed. Subjectively he reports doing well, he denies acute complaints presently denies fevers, chills or night sweats. He tells me he's been very comfortable and has been eating well, sleeping well and has been ambulating without difficulty. He is eager to go home tomorrow morning after completing chemotherapy late tonight. Objective Data Date Time Temp Pulse Resp B/P (MAP) Pulse Ox O2 Delivery O2 Flow Rate FiO2 08/03/17 16:00 96.6 63 18 118/80 (93) 100 08/03/17 12:00 96.9 79 18 139/80 (99) 100 08/03/17 08:00 96.1 73 18 143/78 (99) 99 08/03/17 04:00 98.2 67 20 123/85 (98) 99 08/03/17 00:00 97.1 79 18 115/65 (82) 98 08/02/17 20:04 96.2 64 18 111/72 (85) 98 08/03/17 08/03/17 08/03/17 07:00 15:00 23:00 Intake Total 1183 ml 480 ml Output Total 1160 ml 800 ml Balance 23 ml -320 ml Result Diagram: 08/03/17 0613 08/03/17 0613 Laboratory Results Laboratory Tests Test 08/03/17 06:13 White Blood Count 4.9 TH/MM3 Red Blood Count 4.36 MIL/MM3 Hemoglobin 12.6 GM/DL Hematocrit 38.0 % Mean Corpuscular Volume 87.1 FL Mean Corpuscular Hemoglobin 28.9 PG Mean Corpuscular Hemoglobin Concent 33.2 % Red Cell Distribution Width 14.7 % Platelet Count 126 TH/MM3 Mean Platelet Volume 7.6 FL Neutrophils (%) (Auto) 90.4 % Lymphocytes (%) (Auto) 8.1 % Monocytes (%) (Auto) 1.3 % Eosinophils (%) (Auto) 0.1 % Basophils (%) (Auto) 0.1 % Neutrophils # (Auto) 4.4 TH/MM3 Lymphocytes # (Auto) 0.4 TH/MM3 Monocytes # (Auto) 0.1 TH/MM3 Eosinophils # (Auto) 0.0 TH/MM3 Basophils # (Auto) 0.0 TH/MM3 CBC Comment DIFF FINAL Differential Comment Blood Urea Nitrogen 19 MG/DL Creatinine 0.81 MG/DL Random Glucose 197 MG/DL Total Protein 6.6 GM/DL Albumin 3.4 GM/DL Calcium Level 8.5 MG/DL Alkaline Phosphatase 46 U/L Aspartate Amino Transf (AST/SGOT) 10 U/L Alanine Aminotransferase (ALT/SGPT) 17 U/L Total Bilirubin 0.9 MG/DL Sodium Level 138 MEQ/L Potassium Level 4.3 MEQ/L Chloride Level 106 MEQ/L Carbon Dioxide Level 24.6 MEQ/L Anion Gap 7 MEQ/L Estimat Glomerular Filtration Rate 96 ML/MIN Administered Medications Medications (Trade) Dose Ordered Sig/Maritza Route PRN Reason Start Time Stop Time Status Last Admin Dose Admin Sodium Chloride 1,000 ml @ 42 mls/hr [id number] IV 07/31/17 11:37 08/02/17 22:37 Sodium Chloride (NS Flush) 2 ml BID IV FLUSH 07/31/17 21:00 08/02/17 20:10 Senna/Docusate Sodium (Cinthia-Colace) 1 tab BID PO 07/31/17 21:00 08/03/17 07:36 Atorvastatin Calcium (Lipitor) 20 mg DAILY PO 08/01/17 09:00 08/03/17 07:36 Metoprolol Succinate (Toprol Xl) 50 mg DAILY PO 08/01/17 09:00 08/03/17 07:36 Dexamethasone Sodium Phosphate (Decadron Opth 0.1% Soln) 2 drop QID EACH EYE 07/31/17 18:00 08/07/17 13:01 08/03/17 17:12 Cytarabine 2300 mg/Sodium Chloride 500 ml @ 166.667 mls/hr Q24H IV 07/31/17 21:00 08/03/17 23:59 08/02/17 21:41 Dexamethasone Sodium Phosphate 12 mg/Granisetron HCl 1 mg/Sodium Chloride 54 ml @ 324 mls/hr Q24H IV 07/31/17 20:30 08/03/17 20:39 08/02/17 20:53 Heparin Sodium (Porcine) (Heparin Central Flush) See Protocol DAILY IV FLUSH 08/01/17 09:00 08/01/17 10:02 Aspirin (Ecotrin Ec) 81 mg DAILY PO 08/02/17 09:00 08/03/17 07:36 Objective Remarks GENERAL: Mr. Gutiérrez is an elderly male, he is medium height and is heavy-set, appears to be in no acute distress and has a pleasant disposition. He is hard of hearing. HEENT: Head atraumatic, normocephalic. Conjunctive are non pale. Sclerae are anicteric, EOMI, PERRLA. Oral exam no pharyngeal erythema. NECK: No palpable cervical or supraclavicular adenopathy. LUNGS: Good air movement bilaterally. No added breath sounds. CARDIOVASCULAR: Regular rhythm, S1-S2. No obvious murmurs, rubs or gallops (A fib is not noted on today's exam). ABDOMEN: Protuberant belly, soft, no palpable organ enlargement. He does have midline surgical incision scars noted. He has no hepatosplenomegaly. EXTREMITIES: Lower extremities no pretibial edema or calf tenderness. CENTRAL NERVOUS SYSTEM: No focal sensory or motor deficits other than his hearing loss which is chronic. Assessment/Plan Assessment Mr. 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 The patient's cytogenetics were positive for inversion 16 and negative for FLT3. He is status post induction remission therapy with idarubicin / cytarabine (3+7). He comes in today for cycle #1 consolidation treatment with HIDAC. Plan 1. AMML: Continue consolidation cycle 1 with HiDAC dosed at 1000mg/m2; BSA calculated at 2.3m2. Daily infusions x 4 days. The plan is to treat him with 2 cycles of consolidation at least. Dexamethasone eye drops for cytarabine related conjunctivitis. 2. Afib: Continue rate controlled with metoprolol, he tells me Kimmiequis was d/ vargas and he was transitioned to ASA 162mg po daily. 3. HTN: Controlled with metoprolol and lisinopril. B/c his systolic bp was low and has been trending low; I have d/vargas the lisinopril for now. 4. NS @ 42mL/hr for hydration. Disposition: Fourth day of HiDAC later this evening. He may be discharged home tomorrow morning. I have set him up for CBC checks on Tuesdays and Fridays and my [place] office for the upcoming weeks. He will see me in follow-up on 08/14/2017. Dwain Diez MD Aug 03, 2017 18:47
--- NOTE | 2017-08-03 19:02 | HHI.DS ---
Discharge Summary Admission Date Jul 31, 2017 at 09:59 Discharge Date: Aug 04, 2017 Admitting Diagnosis Acute myelomonocytic leukemia in remission. Hypertension. Atrial fibrillation. (1) AML M5 (acute monocytic leukemia) Diagnosis: Principal ICD Codes: C93.00 - Acute monoblastic/monocytic leukemia, not having achieved remission Status: Acute Procedures Right arm PICC line placement on 07/31/2017. Delivery of cycle #1 high-dose cytarabine 1000 mg for metered squared on day 1 - 4 delivered between 07/31/2017 and 08/03/2017. Brief History Patient is a 66-year-old man who was diagnosed in April 2017 with acute myelomonocytic leukemia. He was initiated on systemic induction therapy with idarubicin and cytarabine. He achieved remission and was discharged home following induction. Once his counts recovered she was readmitted for high- dose cytarabine consolidation cycle #1 on 07/31/2017. Treatment was delivered via a PICC line which was inserted on 07/31/2017. He tolerated treatment without difficulties and was discharged home following completion of day for infusion. CBC/BMP: 08/03/17 0613 08/03/17 0613 Significant Findings Laboratory Tests Test 08/03/17 06:13 Red Blood Count 4.36 MIL/MM3 (4.50-5.90) Hemoglobin 12.6 GM/DL (13.0-17.0) Hematocrit 38.0 % (39.0-51.0) Platelet Count 126 TH/MM3 (150-450) Neutrophils (%) (Auto) 90.4 % (16.0-70.0) Lymphocytes (%) (Auto) 8.1 % (9.0-44.0) Lymphocytes # (Auto) 0.4 TH/MM3 (1.0-4.8) Blood Urea Nitrogen 19 MG/DL (7-18) Random Glucose 197 MG/DL (74-106) Aspartate Amino Transf (AST/SGOT) 10 U/L (15-37) PE at Discharge Please review my follow-up note dated 08/03/2017. Hospital Course Uncomplicated delivery of high-dose cytarabine via PICC line for management of acute myelomonocytic leukemia in remission. This was cycle 1 consolidation. He will be discharged home following completion of therapy. PICC line will be discontinued upon discharge. Pt Condition on Discharge: Good Discharge Disposition: Discharge Home Discharge Instructions DIET: Follow Instructions for: As Tolerated, No Restrictions Fluid Restrictions: none Activities you can perform: Regular-No Restrictions Dwain Diez MD Aug 03, 2017 19:02
[2017-08-03 20:00] VITALS: BP 116/79; PULSE 67; RESP 19; TEMP 97.2; O2SAT 97
[2017-08-03] MEDS: SODIUM CHLORIDE 0.9% IV SCH (21:45)
[2017-08-03] MEDS: GRANISETRON IV SCH (21:45)
[2017-08-03] MEDS: DEXAMETHASONE IV SCH (21:45)
[2017-08-03] MEDS: CYTARABINE IV SCH (22:11)
[2017-08-03] MEDS: SODIUM CHLORID 0.9% IV SCH (22:11)
[2017-08-03] MEDS: SODIUM CHLOR 0.9% 1000 ML INJ 1,000 ML IV SCH (22:16)
[2017-08-04] VITALS: BP 140/86; PULSE 62; RESP 18; TEMP 96.9; O2SAT 98
[2017-08-04 04:00] VITALS: BP 139/83; PULSE 68; RESP 19; TEMP 97; O2SAT 97
[2017-08-04 08:00] VITALS: BP 146/91; PULSE 87; RESP 14; TEMP 98; O2SAT 99
[2017-08-04] MEDS: SODIUM CHLORIDE 0.9% FLUSH 10 ML FLUSH IV FLUSH SCH ×2 (09:00)
[2017-08-04] MEDS: DOCUSATE SODIUM 50 MG/SENNA 8.6 MG TAB PO SCH (09:00)
--- NOTE | 2017-08-04 09:38 | PD.ONC.PN ---
Subjective Subjective Remarks Afebrile overnight. patient resting in bed in nad. Eager to go home today. Denies diarrhea, vomiting or rash. +BM last night Objective Data Date Time Temp Pulse Resp B/P (MAP) Pulse Ox O2 Delivery O2 Flow Rate FiO2 08/04/17 04:00 97.0 68 19 139/83 (101) 97 08/04/17 00:00 96.9 62 18 140/86 (104) 98 08/03/17 20:00 97.2 67 19 116/79 (91) 97 08/03/17 16:00 96.6 63 18 118/80 (93) 100 08/03/17 12:00 96.9 79 18 139/80 (99) 100 08/04/17 08/04/17 08/04/17 07:00 15:00 23:00 Intake Total 480 ml Output Total 800 ml Balance -320 ml Result Diagram: 08/03/1761208/03/17612 Administered Medications Medications (Trade) Dose Ordered Sig/Maritza Route PRN Reason Start Time Stop Time Status Last Admin Dose Admin Sodium Chloride 1,000 ml @ 42 mls/hr [id number] IV 07/31/17 11:37 08/03/17 22:16 Sodium Chloride (NS Flush) 2 ml BID IV FLUSH 07/31/17 21:00 08/03/17 21:45 Senna/Docusate Sodium (Cinthia-Colace) 1 tab BID PO 07/31/17 21:00 08/03/17 07:36 Atorvastatin Calcium (Lipitor) 20 mg DAILY PO 08/01/17 09:00 08/03/17 07:36 Metoprolol Succinate (Toprol Xl) 50 mg DAILY PO 08/01/17 09:00 08/03/17 07:36 Dexamethasone Sodium Phosphate (Decadron Opth 0.1% Soln) 2 drop QID EACH EYE 07/31/17 18:00 08/07/17 13:01 08/03/17 21:44 Heparin Sodium (Porcine) (Heparin Central Flush) See Protocol DAILY IV FLUSH 08/01/17 09:00 08/01/17 10:02 Aspirin (Ecotrin Ec) 81 mg DAILY PO 08/02/17 09:00 08/03/17 07:36 Objective Remarks GENERAL: pleasant male lying in bed in nad SKIN: Warm and dry. PICC line site clean, right arm. HEAD: Normocephalic. EYES: No scleral icterus. No injection or drainage. NECK: Supple, trachea midline. CARDIOVASCULAR: Regular rate and rhythm RESPIRATORY: Breath sounds equal bilaterally. No accessory muscle use. GASTROINTESTINAL: Abdomen soft, non-tender, nondistended. EXTREMITIES: No cyanosis NEUROLOGICAL: No obvious focal deficit. Awake, alert, and oriented x3. Assessment/Plan Assessment Mr. 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 The patient's cytogenetics were positive for inversion 16 and negative for FLT3. He is status post induction remission therapy with idarubicin / cytarabine (3+7). He comes in today for cycle #1 consolidation treatment with HIDAC. Plan 1. AMML: completed C1 HiDAC last night. discharge today with follow up next week in clinic. 2. Afib: Continue rate controlled with metoprolol, he tells me Eliquis was d/ vargas and he was transitioned to ASA 162mg po daily. 3. HTN: Controlled with metoprolol and lisinopril. B/c his systolic bp was low and has been trending low; I have d/vargas the lisinopril for now. 4. stop fluids and d/c home. Disposition: He may be discharged home today. set up for CBC checks on Tuesdays and Fridays and my [facility] office for the upcoming weeks. He will see me in follow-up on 08/14/2017. Attending Statement The exam, history, and the medical decision-making described in the above note were completed with the assistance of the mid-level provider. I reviewed and agree with the findings presented. I attest that I had a [id number] encounter with the patient on the same day, and personally performed and documented my assessment and findings in the medical record. Tolerated consolidation chemotx well. Will d/c home and f/u with next week to monitor CBC. Nettie Lutz Aug 04, 2017 09:38 Dm Sandra MD Aug 04, 2017 12:00
--- NOTE | 2017-08-04 09:40 | HHI.DCPOC ---
Discharge Care Plan Diagnosis: (1) Atrial fibrillation (2) Acute myelomonocytic leukemia Goals to Promote Your Health * To prevent worsening of your condition and complications * To maintain your health at the optimal level Directions to Meet Your Goals Take your medications as prescribed Follow your dietary instruction Follow activity as directed Keep your appointments as scheduled Take your immunizations and boosters as scheduled If your symptoms worsen call your PCP, if no PCP go to Urgent Care Center or Emergency Room Smoking is Dangerous to Your Health. Avoid second hand smoke Call the 24-hour hour crisis hotline for domestic abuse at Nettie Lutz Aug 04, 2017 09:40
[2017-08-04] MEDS: ASPIRIN EC 81 MG TABEC PO SCH (10:20)
[2017-08-04] MEDS: METOPROLOL SUCCINATE 50 MG EXTENDED RELEASE TAB PO SCH (10:20)
[2017-08-04] MEDS: ATORVASTATIN 20 MG TAB PO SCH (10:20)
[2017-08-04] MEDS: DEXAMETHASONE SOD PHOS 0.1% OPHT SOLN 5 ML BTL EACH EYE SCH (10:21)
== END 2017-08-04 11:42 | disposition home or self-care (01) | DRG 839 ==
LOC: HOCA 09:59
PROVIDERS: ADMIT Internal Medicine Hematology & Oncology; ATTEND Internal Medicine Hematology & Oncology
PROC: 02HV33Z Insertion of Infusion Device into Superior Vena Cava, Percutaneous Approach (ICD-10-PCS; principal; 2017-07-31)
PROC: 3E04305 Introduction of Other Antineoplastic into Central Vein, Percutaneous Approach (ICD-10-PCS; 2017-08-01)
DX: Z51.11 Encounter for antineoplastic chemotherapy (principal); C93.01 Acute monoblastic/monocytic leukemia, in remission; I48.91 Unspecified atrial fibrillation; I10 Essential (primary) hypertension; H91.93 Unspecified hearing loss, bilateral; H10.9 Unspecified conjunctivitis; E78.5 Hyperlipidemia, unspecified; Z79.82 Long term (current) use of aspirin
CPT/HCPCS: 36569; 71010; 76937; 80053; 85025; J1100; J1626; J1642; J7030; J7040; J9100

== ENCOUNTER 2017-09-10 06:19 | Inpatient (IN) | payer MEDICARE ==
[~2017-09-10] VITALS: Ht 175.3 cm; Wt 112.0 kg
[~2017-09-10 06:19] MED LIST changes: -APIX5TAB PO; -LISI-515 PO
--- NOTE | 2017-09-10 08:54 | MH ---
cc: DON JOHNS MD DATE OF ADMISSION: 09/10/2017 DATE OF : 1950 REASON FOR ADMISSION Consolidation chemotherapy for an underlying diagnosis of acute myelomonocytic leukemia (AMML). TREATMENT TO BE DELIVERED THIS ADMISSION The patient will be dosed with cytarabine 1000 mg per meter squared on days 1-4. He will be dosed to a body surface area of 2.25 meters squared. CHIEF COMPLAINT Mr. Gutiérrez reports continued pain in his left knee. He tells me this is arthritis related. Other than that he denies acute complaints. He does continue to have chronic dizziness, especially when he stands or walks for a long period of time. HISTORY OF PRESENT ILLNESS Mr. Gutiérrez is a very pleasant 67-year-old male who was diagnosed in April 2017 with acute myelomonocytic leukemia (AMML). 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 This is associated with a good prognostic outcome and typically associated with good response to therapy. Mr. Gutiérrez was initiated on systemic induction therapy with idarubicin/cytarabine with cycle #1 delivered in April 2017. He did have a prolonged period of cytopenias afterwards, however, upon recovery restaging bone marrow biopsy indicated complete remission. He was subsequently initiated on high-dose cytarabine (HIDAC) and was dosed at 1000 mg per meter squared on days 1-4 between 07/31 and 08/03/2017. After his counts recovered he is now being admitted for cycle #2 consolidation. Over the past 5 weeks since his last chemotherapy. He did require transfusion support for management of symptomatic anemia and I believe for thrombocytopenia as well. He briefly required growth factor support for asymptomatic severe neutropenia. PAST MEDICAL HISTORY 1. Acute myelomonocytic leukemia. 2. Atrial fibrillation (not on anticoagulation). 3. Chemotherapy-associated myelosuppression. 4. Hearing impaired. 5. Hypertension. 6. Valvular heart disease. PAST SURGICAL HISTORY 1. Cholecystectomy. 2. Hernia repair. 3. Multiple bone marrow biopsies. FAMILY HISTORY Parents are both , both and cardiovascular disease. SOCIAL HISTORY The patient is single. He has no children. He lives at home with a roommate. He tells me he drinks infrequently. He is originally from 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 ALLERGIES No known drug allergies. MEDICATIONS Current outpatient medications: 1. Atorvastatin 20 mg once a day. 2. Metoprolol 50 mg once a day. 3. Amlodipine 5 mg once a day. 4. Ultracet for management of pain. Current inpatient medications: 1. Normal saline at 100 cc per hour. 2. Dexamethasone eye drops for cytarabine-associated conjunctivitis. 3. Zofran 4 mg IV every 6 hours as needed for nausea and vomiting. 4. Pretreated with Kytril 1 mg IV daily prior to chemotherapy administration. 5. Ultracet for pain. REVIEW OF SYSTEMS A 13-point review of systems is obtained. The following are the pertinent positives and negatives: CONSTITUTIONAL: The patient reports fatigue. He denies weight loss. He denies fevers, chills or night sweats. He reports a good energy level. He reports some dizziness when he walks long distances or when he stands for long periods of time. HEENT: He denies headaches, soreness in the throat, nosebleeds, difficulty swallowing. CARDIOVASCULAR: Denies angina-like chest pain, PND, orthopnea. RESPIRATORY: Denies difficulty breathing, cough, hemoptysis, pleuritic chest pain. GI: Denies nausea, vomiting, diarrhea hematochezia, melena, abdominal distention. : Denies any complaints of dysuria, hematuria or urinary incontinence. [employer]: Denies any focal sensory or motor deficits. SKIN: Denies any rashes, lumps or bumps. PHYSICAL EXAMINATION VITAL SIGNS: Weight is 109.5 kg, height 180 cm, BSA 2.28 meters squared. Temperature 98.5 degrees Fahrenheit, heart rate 81 beats per minute, respiratory rate 18, blood pressure 103/63. O2 sats 97% on room air. GENERAL APPEARANCE: Mr. Gutiérrez is an elderly male. He is short and heavyset. He appears to be in no acute distress. He has a pleasant disposition. He is hard of hearing. HEENT: Head is atraumatic, normocephalic. Conjunctivae are not pale. Sclerae are anicteric. EOMI. PERRLA. Oral exam no pharyngeal erythema. NECK: No palpable cervical or supraclavicular lymphadenopathy. LUNGS: Good air movement bilaterally. No added breath sounds. CARDIOVASCULAR: Regular rate and rhythm, S1, S2. No obvious murmurs, rubs or gallops. ABDOMEN: Obese belly, soft and nontender, nondistended. No palpable organ enlargement. EXTREMITIES: Lower extremities have no pretibial edema or calf tenderness. NEUROLOGIC: No focal sensory or motor deficits. LABORATORY FINDINGS Blood work dated 08/21/2017: WBC count 10.2, hemoglobin 11 gm/dl, hematocrit 32%, platelet count 348, absolute neutrophil count 7.6, absolute monocyte count 1.9. Chemistries dated 08/21/2017: Sodium 138, potassium 3.9, chloride 104, bicarb 22.8, BUN 19, creatinine 1.09, EGFR 68, calcium 9.4, total bilirubin 1.1, AST 15, ALT 19, alkaline phosphatase 83, albumin 3.6, fasting glucose 152. ASSESSMENT Mr. Gutiérrez is a 67-year-old man with a diagnosis of acute myelomonocytic leukemia (AMML). 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 The cytogenetics of his disease are associated with a favorable prognosis. He is status post induction therapy with idarubicin/cytarabine which was delivered in April 2017. After recovery restaging bone marrow biopsy revealed complete remission. He has since then received one cycle of high-dose cytarabine/intermediate dose cytarabine in mid July 2017. He comes in today for the second planned cycle of consolidation. After this he will be on observation alone. RECOMMENDATIONS 1. AMML: Proceed with a PICC line placement for chemotherapy administration. I will dose him at 1000 mg per meter squared to a body surface area of 2.25 meters squared. He will be dosed every 24 hours for 4 consecutive days. Periodic CBC and CMP will be obtained. Premedication will consist of dexamethasone 20 mg IV daily with Kytril and he will remain on maintenance fluids with normal saline. The patient will be on DVT prophylaxis. 2. Atrial fibrillation: Presently on rate control. He has been off of therapeutic anticoagulation due to his cytopenias which he periodically develops due to chemotherapy administration. Once we have completed consolidation chemotherapy and his counts have recovered at that point I believe it would be safe to resume anticoagulation with one of the oral anticoagulants such as Xarelto or Eliquis. 3. Hypertension: He will remain on amlodipine and metoprolol while in the hospital for rate control purposes and for hypertension. 4. Obesity and high-dose corticosteroids: I will put him on an insulin sliding scale just for supplementation in case he develops steroid-induced hyperglycemia. 5. The oncology service will manage him primarily. If acute medical issues develop, we will ask our hospitalist associates to help manage issues if they arise. MD KUSH Shin/MANSI /8:06 AM /8:22 AM
[2017-09-10] MEDS ORDERED: MAGNESIUM HYDROXIDE SUSP 30 ML CUP PO PRN (09:00)
[2017-09-10] MEDS ORDERED: BISACODYL 10 MG SUPP RECTAL PRN (09:00)
[2017-09-10] MEDS: SODIUM CHLORIDE 0.9% FLUSH 10 ML FLUSH IV FLUSH SCH ×2 (09:00→20:59)
[2017-09-10] MEDS ORDERED: LACTULOSE SYRUP 20 GM/30 ML CUP PO PRN (09:00)
[2017-09-10] MEDS ORDERED: SODIUM CHLORIDE 0.9% FLUSH 10 ML FLUSH IV FLUSH PRN ×2 (09:00→16:30)
[2017-09-10] MEDS ORDERED: ZOLPIDEM TARTRATE 5 MG TAB PO PRN (09:00)
[2017-09-10] MEDS ORDERED: SENNOSIDES 8.6 MG TAB PO PRN (09:00)
[2017-09-10] MEDS ORDERED: NALOXONE HCL 0.4 MG/ML AMP IV PUSH PRN (09:00)
[2017-09-10] MEDS ORDERED: traMADol HCL 50 MG TAB PO PRN (09:00)
[2017-09-10] MEDS: amLODIPine BESYLATE 5 MG TAB PO SCH (09:00)
[2017-09-10] MEDS ORDERED: ONDANSETRON HCL 4 MG/2 ML VIAL IVP PRN (09:00)
[2017-09-10] MEDS: METOPROLOL SUCCINATE 25 MG EXTENDED RELEASE TAB PO SCH (09:30)
[2017-09-10 10:25] VITALS: BP 121/77; PULSE 67; RESP 16; TEMP 98.2; O2SAT 100
[2017-09-10 11:39] VITALS: BP 120/79; PULSE 72; RESP 16; TEMP 97.7; O2SAT 100
[2017-09-10] MEDS: DEXAMETHASONE SOD PHOS 0.1% OPHT SOLN 5 ML BTL EACH EYE SCH ×3 (12:50→20:59)
[2017-09-10] MEDS: DOCUSATE SODIUM 50 MG/SENNA 8.6 MG TAB PO SCH ×2 (12:50→21:00)
[2017-09-10 15:36] LABS: AUTOMATED NEUTROPHIL # 2.5 TH/MM3 (1.8-7.7); BASOPHIL # 0.1 TH/MM3 (0-0.2); BASOPHIL % 1.3 % (0.0-2.0); EOSINOPHIL # 0.2 TH/MM3 (0-0.4); EOSINOPHIL % 4.1 % (0.0-4.0); HEMATOCRIT 34.5 % (39.0-51.0); HEMO FLAGS DIFF FINAL; LYMPH % 28.4 % (9.0-44.0); LYMPHOCYTE # 1.2 TH/MM3 (1.0-4.8); MEAN CELL VOLUME 87.4 FL (80.0-100.0); MEAN CORPUSCULAR HEMOGLOBIN 29.8 PG (27.0-34.0); MEAN CORPUSCULAR HGB CONC 34.1 % (32.0-36.0); MONO % 8.2 % (0.0-8.0); PLATELET COUNT 164 TH/MM3 (150-450); RED BLOOD COUNT 3.94 MIL/MM3 (4.50-5.90); RED CELL DISTRIBUTION WIDTH 18.3 % (11.6-17.2); WHITE BLOOD COUNT 4.3 TH/MM3 (4.0-11.0)
[2017-09-10 15:52] LABS: INTERNATIONAL NORMALIZED RATIO 1.1 RATIO; PROTHROMBIN TIME - PATIENT 11.8 SEC (9.8-11.6)
[2017-09-10 15:59] LABS: ALT (GPT) 17 U/L (12-78); ANION GAP 7 MEQ/L (5-15); AST (GOT) 10 U/L (15-37); BLOOD UREA NITROGEN 16 MG/DL (7-18); CHLORIDE 103 MEQ/L (98-107); GLOMERULAR FILTRATION RATE 77 ML/MIN (>89); POTASSIUM 3.8 MEQ/L (3.5-5.1); SODIUM (NA) 137 MEQ/L (136-145)
[2017-09-10 16:01] LABS: ALKALINE PHOSPHATASE 69 U/L (45-117); TOTAL BILIRUBIN ADULT 0.7 MG/DL (0.2-1.0)
--- NOTE | 2017-09-10 17:15 | RADRPT ---
EXAM DATE/TIME: 09/10/2017 16:55 [facility] COMPARISON: CHEST SINGLE AP, July 31, 2017, 18:49. INDICATIONS : Post PICC line placement MEDICAL HISTORY : Cardiovascular disease. SURGICAL HISTORY : None. ENCOUNTER: Initial ACUITY: 1 day PAIN SCORE: 0/10 LOCATION: Right chest FINDINGS: A single view of the chest demonstrates the lungs to be symmetrically aerated without evidence of mas s, infiltrate or effusion. The cardiomediastinal contours are unremarkable. Osseous structures are intact. PICC line catheter tip projects over the cavoatrial junction. CONCLUSION: PICC line in good position. Lungs are clear. Ruben Danielle MD on September 10, 2017 at 17:12 Board Certified Radiologist. This report was verified electronically.
[2017-09-10] MEDS: SODIUM CHLOR 0.9% 1000 ML INJ 1,000 ML IV SCH ×2 (17:41→17:47)
[2017-09-10] MEDS: GRANISETRON INJ 1 MG, DEXAMETHASONE INJ 20 MG in SODIUM CHLORIDE 0.9% INJ 50 ML IV SCH (17:41)
[2017-09-10] MEDS: CYTARABINE IV SCH (18:45)
[2017-09-10] MEDS: SODIUM CHLOR 0.9% IV SCH (18:45)
[2017-09-10 21:03] VITALS: BP 125/67; PULSE 74; RESP 16; TEMP 98.3; O2SAT 99
[2017-09-11] VITALS (7 sets, daily range): BP systolic 103–122; BP diastolic 48–73; PULSE 76–89; RESP 15–20; TEMP 97.8–99.1; O2SAT 94–99
[2017-09-11] MEDS: SODIUM CHLOR 0.9% 1000 ML INJ 1,000 ML IV SCH ×3 (04:58→23:55)
--- NOTE | 2017-09-11 07:32 | PD.ONC.PN ---
Subjective Subjective Remarks Patient seen and examined, vital signs, labs and medications reviewed. PICC line in right upper extremity was placed without complications yesterday and chemotherapy was initiated subsequently. He denies acute complaints this morning and reports feeling well. He tells me he is about a water breakfast. He specifically denies fevers, chills, night sweats, nausea, vomiting, abdominal pain, difficulty breathing, overt bleeding or diarrhea. Objective Data Date Time Temp Pulse Resp B/P (MAP) Pulse Ox O2 Delivery O2 Flow Rate FiO2 09/11/17 04:59 97.8 89 17 103/59 (74) 96 09/11/17 00:21 98.3 77 15 121/63 (82) 98 09/10/17 21:03 98.3 74 16 125/67 (86) 99 09/10/17 11:39 97.7 72 16 120/79 (93) 100 09/10/17 10:25 98.2 67 16 121/77 (92) 100 09/11/17 09/11/17 09/11/17 07:00 15:00 23:00 Output Total 1400 ml Balance -1400 ml Result Diagram: 09/10/17 1439 09/10/17 1439 Laboratory Results Laboratory Tests Test 09/10/17 14:39 White Blood Count 4.3 TH/MM3 Red Blood Count 3.94 MIL/MM3 Hemoglobin 11.8 GM/DL Hematocrit 34.5 % Mean Corpuscular Volume 87.4 FL Mean Corpuscular Hemoglobin 29.8 PG Mean Corpuscular Hemoglobin Concent 34.1 % Red Cell Distribution Width 18.3 % Platelet Count 164 TH/MM3 Mean Platelet Volume 8.2 FL Neutrophils (%) (Auto) 58.0 % Lymphocytes (%) (Auto) 28.4 % Monocytes (%) (Auto) 8.2 % Eosinophils (%) (Auto) 4.1 % Basophils (%) (Auto) 1.3 % Neutrophils # (Auto) 2.5 TH/MM3 Lymphocytes # (Auto) 1.2 TH/MM3 Monocytes # (Auto) 0.4 TH/MM3 Eosinophils # (Auto) 0.2 TH/MM3 Basophils # (Auto) 0.1 TH/MM3 CBC Comment DIFF FINAL Differential Comment Prothrombin Time 11.8 SEC Prothromb Time International Ratio 1.1 RATIO Activated Partial Thromboplast Time 29.0 SEC Blood Urea Nitrogen 16 MG/DL Creatinine 0.98 MG/DL Random Glucose 151 MG/DL Total Protein 6.7 GM/DL Albumin 3.5 GM/DL Calcium Level 8.6 MG/DL Alkaline Phosphatase 69 U/L Aspartate Amino Transf (AST/SGOT) 10 U/L Alanine Aminotransferase (ALT/SGPT) 17 U/L Total Bilirubin 0.7 MG/DL Sodium Level 137 MEQ/L Potassium Level 3.8 MEQ/L Chloride Level 103 MEQ/L Carbon Dioxide Level 27.0 MEQ/L Anion Gap 7 MEQ/L Estimat Glomerular Filtration Rate 77 ML/MIN Administered Medications Medications (Trade) Dose Ordered Sig/Maritza Route PRN Reason Start Time Stop Time Status Last Admin Dose Admin Sodium Chloride 1,000 ml @ 100 mls/hr Q10H IV 09/10/17 09:00 09/10/17 17:41 Sodium Chloride (NS Flush) 2 ml BID IV FLUSH 09/10/17 09:00 09/10/17 20:59 Senna/Docusate Sodium (Cinthia-Colace) 1 tab BID PO 09/10/17 09:00 09/10/17 21:00 Dexamethasone Sodium Phosphate (Decadron Opth 0.1% Soln) 2 drop QID EACH EYE 09/10/17 13:00 09/15/17 12:59 09/10/17 20:59 Cytarabine 2250 mg/Sodium Chloride 250 ml @ 83.333 mls/ hr Q24H IV 09/10/17 14:00 09/13/17 16:59 09/10/17 18:45 Granisetron HCl 1 mg/Dexamethasone Sodium Phosphate 20 mg/Sodium Chloride 56 ml @ 336 mls/hr DAILY@1330 IV 09/10/17 13:30 09/13/17 13:39 09/10/17 17:41 Objective Remarks GENERAL APPEARANCE: Mr. Gutiérrez is an elderly male. He is short and heavyset. He appears to be in no acute distress. He has a pleasant disposition. He is hard of hearing. HEENT: Head is atraumatic, normocephalic. Conjunctivae are not pale. Sclerae are anicteric. EOMI. PERRLA. Oral exam no pharyngeal erythema. NECK: No palpable cervical or supraclavicular lymphadenopathy. LUNGS: Good air movement bilaterally. No added breath sounds. CARDIOVASCULAR: Regular rate and rhythm, S1, S2. No obvious murmurs, rubs or gallops. ABDOMEN: Obese belly, soft and nontender, nondistended. No palpable organ enlargement. EXTREMITIES: Lower extremities have no pretibial edema or calf tenderness. Interval placement of right arm PICC line. NEUROLOGIC: No focal sensory or motor deficits. Skin: No abnormal lesions, bruising or overt bleeding noted. Assessment/Plan Assessment Mr. Gutiérrez is a 67-year-old man with a diagnosis of acute myelomonocytic leukemia (AMML). 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 The cytogenetics of his disease are associated with a favorable prognosis. He is status post induction therapy with idarubicin/cytarabine which was delivered in April 2017. After recovery restaging bone marrow biopsy revealed complete remission. He has since then received one cycle of high-dose cytarabine/intermediate dose cytarabine in mid July 2017. He comes in today for the second planned cycle of consolidation. Plan 1. AMML: Today will be day to high-dose cytarabine at 1000 mg for metered squared. Premedications with dexamethasone and Kytril ordered. He tolerated day 1 without difficulty. 2. Atrial fibrillation: Presently on rate control. He has been off of therapeutic anticoagulation due to his cytopenias which he periodically develops due to chemotherapy administration. Once we have completed consolidation chemotherapy and his counts have recovered at that point I believe it would be safe to resume anticoagulation with one of the oral anticoagulants such as Xarelto or Eliquis. 3. Hypertension: He will remain on amlodipine and metoprolol while in the hospital for rate control purposes and for hypertension. 4. Obesity and high-dose corticosteroids: I will put him on an insulin sliding scale just for supplementation in case he develops steroid-induced hyperglycemia. 5. Lovenox for DVT prophylaxis. Dwain Diez MD Sep 11, 2017 07:32
[2017-09-11] MEDS: ENOXAPARIN SODIUM 40 MG/0.4 ML SYRINGE SQ SCH (07:38)
[2017-09-11] MEDS: DEXAMETHASONE SOD PHOS 0.1% OPHT SOLN 5 ML BTL EACH EYE SCH ×4 (07:38→20:28)
[2017-09-11] MEDS: amLODIPine BESYLATE 5 MG TAB PO SCH (07:38)
[2017-09-11] MEDS: DOCUSATE SODIUM 50 MG/SENNA 8.6 MG TAB PO SCH ×2 (07:39→20:27)
[2017-09-11] MEDS: METOPROLOL SUCCINATE 25 MG EXTENDED RELEASE TAB PO SCH (07:39)
[2017-09-11] MEDS: SODIUM CHLORIDE 0.9% FLUSH 10 ML FLUSH IV FLUSH SCH ×3 (07:39→20:27)
[2017-09-11] MEDS: GRANISETRON INJ 1 MG, DEXAMETHASONE INJ 20 MG in SODIUM CHLORIDE 0.9% INJ 50 ML IV SCH (17:32)
[2017-09-11] MEDS: SODIUM CHLOR 0.9% IV SCH (18:05)
[2017-09-11] MEDS: CYTARABINE IV SCH (18:05)
[2017-09-12 04:34] VITALS: BP 132/77; PULSE 75; RESP 16; TEMP 98.2; O2SAT 100
[2017-09-12 05:26] LABS: BICARBONATE 25.5 MEQ/L (21.0-32.0); POTASSIUM 4.3 MEQ/L (3.5-5.1)
--- NOTE | 2017-09-12 07:14 | PD.ONC.PN ---
Subjective Subjective Remarks Patient seen and examined, vital signs, labs and medications reviewed. Subjectively he reports feeling well and denies any adverse effects related chemotherapy. He requests to be discharged home tomorrow as soon as his chemotherapy infusion is complete. Objective Data Date Time Temp Pulse Resp B/P (MAP) Pulse Ox O2 Delivery O2 Flow Rate FiO2 09/12/17 04:34 98.2 75 16 132/77 (95) 100 09/11/17 23:54 98.4 78 16 122/65 (84) 98 09/11/17 20:00 98.3 76 16 113/48 (69) 97 09/11/17 17:28 99.1 82 18 110/72 (85) 99 09/11/17 12:49 98.9 80 20 116/73 (87) 99 09/11/17 07:52 98.1 87 18 115/71 (86) 94 09/12/17 09/12/17 09/12/17 07:00 15:00 23:00 Intake Total 1800 ml Balance 1800 ml Result Diagram: 09/10/17 1439 09/12/17 0435 Laboratory Results Laboratory Tests Test 09/12/17 04:35 Blood Urea Nitrogen 20 MG/DL Creatinine 0.82 MG/DL Random Glucose 195 MG/DL Calcium Level 8.2 MG/DL Sodium Level 138 MEQ/L Potassium Level 4.3 MEQ/L Chloride Level 107 MEQ/L Carbon Dioxide Level 25.5 MEQ/L Anion Gap 6 MEQ/L Estimat Glomerular Filtration Rate 94 ML/MIN Administered Medications Medications (Trade) Dose Ordered Sig/Maritza Route PRN Reason Start Time Stop Time Status Last Admin Dose Admin Sodium Chloride 1,000 ml @ 100 mls/hr Q10H IV 09/10/17 09:00 09/11/17 23:55 Sodium Chloride (NS Flush) 2 ml BID IV FLUSH 09/10/17 09:00 09/10/17 20:59 Enoxaparin Sodium (Lovenox Inj) 40 mg Q24H SQ 09/11/17 09:00 09/11/17 07:38 Senna/Docusate Sodium (Cinthia-Colace) 1 tab BID PO 09/10/17 09:00 09/11/17 20:27 Amlodipine Besylate (Norvasc) 5 mg DAILY PO 09/10/17 09:00 09/11/17 07:38 Metoprolol Succinate (Toprol Xl) 25 mg DAILY PO 09/10/17 09:30 09/11/17 07:39 Dexamethasone Sodium Phosphate (Decadron Opth 0.1% Soln) 2 drop QID EACH EYE 09/10/17 13:00 09/15/17 12:59 09/11/17 20:28 Cytarabine 2250 mg/Sodium Chloride 250 ml @ 83.333 mls/ hr Q24H IV 09/10/17 14:00 09/13/17 16:59 09/11/17 18:05 Granisetron HCl 1 mg/Dexamethasone Sodium Phosphate 20 mg/Sodium Chloride 56 ml @ 336 mls/hr DAILY@1330 IV 09/10/17 13:30 09/13/17 13:39 09/11/17 17:32 Objective Remarks GENERAL APPEARANCE: Mr. Gutiérrez is an elderly male. He is short and heavyset. He appears to be in no acute distress. He has a pleasant disposition. He is hard of hearing. HEENT: Head is atraumatic, normocephalic. Conjunctivae are not pale. Sclerae are anicteric. EOMI. PERRLA. Oral exam no pharyngeal erythema. NECK: No palpable cervical or supraclavicular lymphadenopathy. LUNGS: Good air movement bilaterally. No added breath sounds. CARDIOVASCULAR: Regular rate and rhythm, S1, S2. No obvious murmurs, rubs or gallops. ABDOMEN: Obese belly, soft and nontender, nondistended. No palpable organ enlargement. EXTREMITIES: Lower extremities have no pretibial edema or calf tenderness. Interval placement of right arm PICC line. NEUROLOGIC: No focal sensory or motor deficits. Skin: No abnormal lesions, bruising or overt bleeding noted. Assessment/Plan Assessment Mr. Gutiérrez is a 67-year-old man with a diagnosis of acute myelomonocytic leukemia (AMML). 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 The cytogenetics of his disease are associated with a favorable prognosis. He is status post induction therapy with idarubicin/cytarabine which was delivered in April 2017. After recovery restaging bone marrow biopsy revealed complete remission. He has since then received one cycle of high-dose cytarabine/intermediate dose cytarabine in mid July 2017. He comes in today for the second planned cycle of consolidation. Plan 1. AMML: Today will be day to high-dose cytarabine at 1000 mg for metered squared. Premedications with dexamethasone and Kytril ordered. He tolerated day 1 &2 without difficulty. 2. Atrial fibrillation: Presently on rate control. He has been off of therapeutic anticoagulation due to his cytopenias which he periodically develops due to chemotherapy administration. Once we have completed consolidation chemotherapy and his counts have recovered at that point I believe it would be safe to resume anticoagulation with one of the oral anticoagulants such as Xarelto or Eliquis. 3. Hypertension: He will remain on amlodipine and metoprolol while in the hospital for rate control purposes and for hypertension. 4. Obesity and high-dose corticosteroids: I will put him on an insulin sliding scale just for supplementation in case he develops steroid-induced hyperglycemia. 5. Lovenox for DVT prophylaxis. 6. Hyperglycemia: I have started him on bedside fingersticks before meals and at that time with regular insulin sliding scale coverage. Disposition: Anticipate discharge home on 09/13/2017 after his fourth and final day of high- dose cytarabine. His PICC line will be discontinued prior to discharge. Outpatient labs will be ordered twice weekly until he is recovered from his cytopenias. He may require growth factor support with Neupogen and transfusion support. This will be delivered at my [facility] office on an as-needed basis. Dwain Diez MD Sep 12, 2017 07:14
[2017-09-12] MEDS ORDERED: GLUCAGON 1 MG/ML VIAL OTHER PRN (07:15)
[2017-09-12] MEDS ORDERED: DEXTROSE 50% IN WATER 50 ML VIAL(D50) IV PUSH PRN (07:15)
[2017-09-12] MEDS: INSULIN NovoLIN REGULAR SUPPLEMENTAL SCALE SQ SCH ×4 (08:00→20:28)
[2017-09-12] MEDS: SODIUM CHLORIDE 0.9% FLUSH 10 ML FLUSH IV FLUSH SCH ×3 (09:00→20:28)
[2017-09-12 09:10] VITALS: BP 122/52; PULSE 86; RESP 18; TEMP 97.5; O2SAT 100
[2017-09-12] MEDS: SODIUM CHLOR 0.9% 1000 ML INJ 1,000 ML IV SCH ×2 (09:36→21:00)
[2017-09-12] MEDS: METOPROLOL SUCCINATE 25 MG EXTENDED RELEASE TAB PO SCH (09:55)
[2017-09-12] MEDS: amLODIPine BESYLATE 5 MG TAB PO SCH (09:55)
[2017-09-12] MEDS: DOCUSATE SODIUM 50 MG/SENNA 8.6 MG TAB PO SCH ×2 (09:55→20:23)
[2017-09-12] MEDS: DEXAMETHASONE SOD PHOS 0.1% OPHT SOLN 5 ML BTL EACH EYE SCH ×4 (09:57→20:28)
[2017-09-12] MEDS: ENOXAPARIN SODIUM 40 MG/0.4 ML SYRINGE SQ SCH (09:57)
[2017-09-12 12:44] VITALS: BP 127/66; PULSE 75; RESP 18; TEMP 97.9; O2SAT 99
[2017-09-12] MEDS: GRANISETRON INJ 1 MG, DEXAMETHASONE INJ 20 MG in SODIUM CHLORIDE 0.9% INJ 50 ML IV SCH (15:03)
[2017-09-12] MEDS: SODIUM CHLOR 0.9% IV SCH (16:26)
[2017-09-12] MEDS: CYTARABINE IV SCH (16:26)
[2017-09-12 16:37] VITALS: BP 114/65; PULSE 62; RESP 18; TEMP 98; O2SAT 98
[2017-09-12 20:00] VITALS: BP 133/71; PULSE 74; RESP 18; TEMP 98.5; O2SAT 97
[2017-09-13] VITALS: BP 143/74; PULSE 68; RESP 16; TEMP 97.9; O2SAT 100
[2017-09-13 03:49] VITALS: BP 140/75; PULSE 65; RESP 16; TEMP 97.8; O2SAT 100
--- NOTE | 2017-09-13 07:09 | HHI.DS ---
Discharge Summary Admission Date Sep 10, 2017 at 06:19 Discharge Date: Sep 13, 2017 Admitting Diagnosis Acute myelomonocytic leukemia. Admitted for high-dose chemotherapy infusion. Hypertension. Atrial fibrillation. (1) AML M5 (acute monocytic leukemia) Diagnosis: Principal ICD Codes: C93.00 - Acute monoblastic/monocytic leukemia, not having achieved remission Status: Acute Procedures On 09/10/2017 a PICC line was placed in the right upper extremity. Brief History 67-year-old man with diagnosis of acute myelomonocytic leukemia, initially diagnosed in April 2017. Status post induction remission therapy with idarubicin/ cytarabine with resultant complete remission. He was treated in mid July with cycle #1 consolidation high dose cytarabine. He was admitted on 09/10/2017 for administration of cycle #2 high-dose cytarabine. Chemotherapy was administered via a right upper extremity PICC line which was placed upon admission. The patient tolerated chemotherapy without acute toxicity; he was dosed at 1000 mg for metered squared every 24 hours for total of 4 days; chemotherapy was delivered between September 10 and September 13, 2017. While in the hospital as outpatient hypertension medications were continued including a lot of pain and metoprolol. He did require insulin sliding scale coverage for steroid-induced hyperglycemia. CBC/BMP: 09/10/17 1439 09/12/17 0435 Significant Findings Laboratory Tests Test 09/10/17 14:39 09/12/17 04:35 Red Blood Count 3.94 MIL/MM3 (4.50-5.90) Hemoglobin 11.8 GM/DL (13.0-17.0) Hematocrit 34.5 % (39.0-51.0) Red Cell Distribution Width 18.3 % (11.6-17.2) Monocytes (%) (Auto) 8.2 % (0.0-8.0) Eosinophils (%) (Auto) 4.1 % (0.0-4.0) Prothrombin Time 11.8 SEC (9.8-11.6) Random Glucose 151 MG/DL (74-106) 195 MG/DL (74-106) Aspartate Amino Transf (AST/SGOT) 10 U/L (15-37) Estimat Glomerular Filtration Rate 77 ML/MIN (>89) Blood Urea Nitrogen 20 MG/DL (7-18) Calcium Level 8.2 MG/DL (8.5-10.1) PE at Discharge Please see my note dated 09/13/2017. Hospital Course Patient was admitted to the hospital and 09/10/2017, a right upper extremity PICC line was placed. Blood work was drawn and systemic chemotherapy was initiated. He was dosed with cytarabine at 1000 mg per metered squared to body surface area of 2.25 metered squared. He was dosed every 24 hours for total of 4 doses. There were no acute toxicities and he is being discharged home later today after completion of his fourth and final cytarabine infusion. Pt Condition on Discharge: Good Discharge Disposition: Discharge Home Discharge Instructions DIET: Follow Instructions for: As Tolerated, No Restrictions Activities you can perform: Regular-No Restrictions Dwain Diez MD Sep 13, 2017 07:09
--- NOTE | 2017-09-13 07:22 | PD.ONC.PN ---
Subjective Subjective Remarks Patient seen and examined, vital signs medications reviewed and physical exam performed. Subjectively denies complaints other than feeling constipated. He is looking for to going home later today. He tells me his roommate received a phone call from the [facility] in [facility] regarding an evaluation in the leukemia clinic. He tells me he will make an appointment after he is discharged. Objective Data Date Time Temp Pulse Resp B/P (MAP) Pulse Ox O2 Delivery O2 Flow Rate FiO2 09/13/17 03:49 97.8 65 16 140/75 (96) 100 09/13/17 00:00 97.9 68 16 143/74 (97) 100 09/12/17 20:00 98.5 74 18 133/71 (91) 97 09/12/17 16:37 98.0 62 18 114/65 (81) 98 09/12/17 12:44 97.9 75 18 127/66 (86) 99 09/12/17 09:10 97.5 86 18 122/52 (75) 100 09/13/17 09/13/17 09/13/17 07:00 15:00 23:00 Intake Total 675 ml Output Total 1200 ml Balance -525 ml Result Diagram: 09/10/17 1439 09/12/17 0435 Administered Medications Medications (Trade) Dose Ordered Sig/Maritza Route PRN Reason Start Time Stop Time Status Last Admin Dose Admin Sodium Chloride 1,000 ml @ 100 mls/hr Q10H IV 09/10/17 09:00 09/12/17 21:00 Sodium Chloride (NS Flush) 2 ml BID IV FLUSH 09/10/17 09:00 09/10/17 20:59 Enoxaparin Sodium (Lovenox Inj) 40 mg Q24H SQ 09/11/17 09:00 09/12/17 09:57 Senna/Docusate Sodium (Cinthia-Colace) 1 tab BID PO 09/10/17 09:00 09/12/17 20:23 Amlodipine Besylate (Norvasc) 5 mg DAILY PO 09/10/17 09:00 09/12/17 09:55 Metoprolol Succinate (Toprol Xl) 25 mg DAILY PO 09/10/17 09:30 09/12/17 09:55 Dexamethasone Sodium Phosphate (Decadron Opth 0.1% Soln) 2 drop QID EACH EYE 09/10/17 13:00 09/15/17 12:59 09/12/17 20:28 Cytarabine 2250 mg/Sodium Chloride 250 ml @ 83.333 mls/ hr Q24H IV 09/10/17 14:00 09/13/17 16:59 09/12/17 16:26 Granisetron HCl 1 mg/Dexamethasone Sodium Phosphate 20 mg/Sodium Chloride 56 ml @ 336 mls/hr DAILY@1330 IV 09/10/17 13:30 09/13/17 13:39 09/12/17 15:03 Insulin Human Regular (NovoLIN R SUPPLEMENTAL SCALE) 1 ACHS SLIDING SCALE SQ 09/12/17 08:00 09/12/17 20:28 Objective Remarks GENERAL APPEARANCE: Mr. Gutiérrez is an elderly male. He is short and heavyset. He appears to be in no acute distress. He has a pleasant disposition. He is hard of hearing. HEENT: Head is atraumatic, normocephalic. Conjunctivae are not pale. Sclerae are anicteric. EOMI. PERRLA. Oral exam no pharyngeal erythema. NECK: No palpable cervical or supraclavicular lymphadenopathy. LUNGS: Good air movement bilaterally. No added breath sounds. CARDIOVASCULAR: Regular rate and rhythm, S1, S2. No obvious murmurs, rubs or gallops. ABDOMEN: Obese belly, soft and nontender, nondistended. No palpable organ enlargement. EXTREMITIES: Lower extremities have no pretibial edema or calf tenderness. Interval placement of right arm PICC line. NEUROLOGIC: No focal sensory or motor deficits. Skin: No abnormal lesions, bruising or overt bleeding noted. Assessment/Plan Assessment Mr. Gutiérrez is a 67-year-old man with a diagnosis of acute myelomonocytic leukemia (AMML). 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 The cytogenetics of his disease are associated with a favorable prognosis. He is status post induction therapy with idarubicin/cytarabine which was delivered in April 2017. After recovery restaging bone marrow biopsy revealed complete remission. He has since then received one cycle of high-dose cytarabine/intermediate dose cytarabine in mid July 2017. He comes in today for the second planned cycle of consolidation. Plan 1. AMML: Today will be day to high-dose cytarabine at 1000 mg for metered squared. Premedications with dexamethasone and Kytril ordered. He tolerated the first 3 days of treatment without difficulty. 2. Atrial fibrillation: Presently on rate control. He has been off of therapeutic anticoagulation due to his cytopenias which he periodically develops due to chemotherapy administration. Once we have completed consolidation chemotherapy and his counts have recovered at that point I believe it would be safe to resume anticoagulation with one of the oral anticoagulants such as Xarelto or Eliquis. 3. Hypertension: He will remain on amlodipine and metoprolol while in the hospital for rate control purposes and for hypertension. 4. Obesity and high-dose corticosteroids: I will put him on an insulin sliding scale just for supplementation in case he develops steroid-induced hyperglycemia. 5. Lovenox for DVT prophylaxis. 6. Hyperglycemia: I have started him on bedside fingersticks before meals and at that time with regular insulin sliding scale coverage. Disposition: Anticipate discharge home on 09/13/2017 after his fourth and final day of high- dose cytarabine. His PICC line will be discontinued prior to discharge. Outpatient labs will be ordered twice weekly until he is recovered from his cytopenias. He may require growth factor support with Neupogen and transfusion support. This will be delivered at my [place] office on an as-needed basis. Dwain Diez MD Sep 13, 2017 07:22
[2017-09-13] MEDS: INSULIN NovoLIN REGULAR SUPPLEMENTAL SCALE SQ SCH ×3 (08:00→17:00)
[2017-09-13 09:00] VITALS: BP 111/71; PULSE 80; RESP 18; TEMP 97.9; O2SAT 99
[2017-09-13] MEDS: SODIUM CHLORIDE 0.9% FLUSH 10 ML FLUSH IV FLUSH SCH ×2 (09:00→10:24)
[2017-09-13] MEDS: SODIUM CHLOR 0.9% 1000 ML INJ 1,000 ML IV SCH (10:21)
[2017-09-13] MEDS: amLODIPine BESYLATE 5 MG TAB PO SCH (10:23)
[2017-09-13] MEDS: DOCUSATE SODIUM 50 MG/SENNA 8.6 MG TAB PO SCH (10:23)
[2017-09-13] MEDS: METOPROLOL SUCCINATE 25 MG EXTENDED RELEASE TAB PO SCH (10:24)
[2017-09-13] MEDS: ENOXAPARIN SODIUM 40 MG/0.4 ML SYRINGE SQ SCH (10:24)
[2017-09-13] MEDS: DEXAMETHASONE SOD PHOS 0.1% OPHT SOLN 5 ML BTL EACH EYE SCH ×3 (10:25→18:35)
[2017-09-13 12:12] VITALS: BP 128/78; PULSE 65; RESP 18; TEMP 97.8; O2SAT 99
[2017-09-13] MEDS: GRANISETRON INJ 1 MG, DEXAMETHASONE INJ 20 MG in SODIUM CHLORIDE 0.9% INJ 50 ML IV SCH (14:06)
[2017-09-13] MEDS: SODIUM CHLOR 0.9% IV SCH (15:13)
[2017-09-13] MEDS: CYTARABINE IV SCH (15:13)
[2017-09-13 17:30] VITALS: BP 150/80; PULSE 64; RESP 16; TEMP 98.6; O2SAT 98
[2017-09-13 19:30] VITALS: BP 141/91; PULSE 71; RESP 16; TEMP 98.1; O2SAT 98
== END 2017-09-13 20:08 | disposition home or self-care (01) | DRG 838 ==
LOC: HCIS 06:19
PROVIDERS: ADMIT Internal Medicine Hematology & Oncology; ATTEND Internal Medicine Hematology & Oncology
PROC: XW043B3 Introduction of Cytarabine and Daunorubicin Liposome Antineoplastic into Central Vein, Percutaneous Approach, New Technology Group 3 (ICD-10-PCS; principal; 2017-09-10)
PROC: 02HV33Z Insertion of Infusion Device into Superior Vena Cava, Percutaneous Approach (ICD-10-PCS; 2017-09-10)
DX: Z51.11 Encounter for antineoplastic chemotherapy (principal); C92.51 Acute myelomonocytic leukemia, in remission; I38 Endocarditis, valve unspecified; I48.91 Unspecified atrial fibrillation; I10 Essential (primary) hypertension; E66.9 Obesity, unspecified; R73.9 Hyperglycemia, unspecified; K59.00 Constipation, unspecified; H91.90 Unspecified hearing loss, unspecified ear; T38.0X5A Adverse effect of glucocorticoids and synthetic analogues, initial encounter; Y92.239 Unspecified place in hospital as the place of occurrence of the external cause; Z68.36 Body mass index [BMI] 36.0-36.9, adult
CPT/HCPCS: 36569; 71010; 76937; 80048; 80053; 82948; 85025; 85610; 85730; J1100; J1626; J1650; J7030; J7050; J9100

== ENCOUNTER 2017-11-16 12:38 | Day surgery (SDC) | payer MEDICARE ==
[~2017-11-16 12:38] MED LIST changes: -ASPI81CH37 CHEW; +ASPI81CH6 CHEW
[2017-11-16 12:59] VITALS: BP 150/89; PULSE 97; RESP 20; TEMP 98.4; O2SAT 99
[2017-11-16 14:45] VITALS: BP 158/101; PULSE 89; RESP 18; TEMP 98.2; O2SAT 99
--- NOTE | 2017-11-16 15:33 | RADRPT ---
EXAM DATE/TIME: 11/16/2017 15:40 [facility] COMPARISON: No previous studies available for comparison. INDICATIONS : Patient with a history of leukemia. MEDICAL HISTORY : Deaf Arthritis HTN High Cholesterol Afib Leukemia SURGICAL HISTORY : Tonsillectomy Hernia repair Appendectomy Knee surgery ENCOUNTER: Initial ACUITY: 4-6 months PAIN SCORE: 0/10 FLUORO TIME: 0.41 minutes IMAGE SERIES: 1 ACCESS: Right basilic vein DEVICE(S): 1.) 4 Khmer single lumen 40 cm Xcela Power PICC PROCEDURE : 1. Ultrasound guidance for venous catheterization. 2. Fluoroscopic guidance. 3. Ultrasound & fluoroscopic guided central venous Power PICC line placement. The risks, benefits and alternatives to the procedure were explained and verbal and written consent w as obtained. The site was prepped in sterile fashion. Full sterile technique was used, including ca p, mask, sterile gloves and gown and a large sterile sheet. Hand hygiene and 2% chlorhexidine prep w as utilized per protocol for cutaneous antisepsis with appropriate dry time for site. Sterile gel a nd sterile probe cover were utilized for ultrasound guidance. The skin and subcutaneous tissues wer e infiltrated with local anesthetic solution. Under direct ultrasound guidance, a suitable vein was accessed and a measuring guidewire was introduc ed and positioned in the central venous system. The ultrasound images depicting access guidance were saved and stored to PACS for permanent record. A Power Injectable PICC line was cut to prescribed length and introduced, positioned with tip at the cavoatrial junction level. The line was flushed and secured per protocol. CONCLUSION: 1. Uncomplicated central venous Power PICC line placement. 2. The PICC line can be used immediately. Emersno Carrasquillo MD on November 16, 2017 at 15:31 Board Certified Radiologist. This report was verified electronically.
== END 2017-11-16 15:04 | disposition home or self-care (01) ==
LOC: HROP 12:38 → HRIP 12:39 → HROP 15:04
PROVIDERS: ATTEND Internal Medicine Hematology & Oncology
DX: C92.50 Acute myelomonocytic leukemia, not having achieved remission (principal); I10 Essential (primary) hypertension; E78.00 Pure hypercholesterolemia, unspecified; I48.91 Unspecified atrial fibrillation
CPT/HCPCS: 36569; 76937; 77001; C1751; J1642

== ENCOUNTER 2017-12-08 11:49 | Emergency (ER) | payer MEDICARE ==
[2017-12-08] VITALS (7 sets, daily range): BP systolic 96–130; BP diastolic 61–87; PULSE 67–76; RESP 16–18; TEMP 98.4–98.5; O2SAT 98–99
[~2017-12-08 11:49] MED LIST changes: -ASPI81CH6 CHEW
[2017-12-08 12:34] LABS: AUTOMATED NEUTROPHIL # 2.8 TH/MM3 (1.8-7.7); BASOPHIL % 0.3 % (0.0-2.0); EOSINOPHIL % 0.3 % (0.0-4.0); HEMATOCRIT 39.1 % (39.0-51.0); HEMOGLOBIN 13.6 GM/DL (13.0-17.0); LYMPH % 36.3 % (9.0-44.0); LYMPHOCYTE # 1.6 TH/MM3 (1.0-4.8); MEAN CELL VOLUME 84.8 FL (80.0-100.0); MEAN CORPUSCULAR HEMOGLOBIN 29.5 PG (27.0-34.0); MEAN CORPUSCULAR HGB CONC 34.8 % (32.0-36.0); MEAN PLATELET VOLUME 8.3 FL (7.0-11.0); MONO % 0.8 % (0.0-8.0); NEUT % 62.3 % (16.0-70.0); RED BLOOD COUNT 4.61 MIL/MM3 (4.50-5.90); RED CELL DISTRIBUTION WIDTH 14.8 % (11.6-17.2); WHITE BLOOD COUNT 4.5 TH/MM3 (4.0-11.0)
[2017-12-08 12:42] LABS: PLATELET COUNT 12 TH/MM3 (150-450)
[2017-12-08 12:43] LABS: PROTHROMBIN TIME - PATIENT 10.5 SEC (9.8-11.6)
[2017-12-08 13:03] LABS: ALBUMIN 3.8 GM/DL (3.4-5.0); ALT (GPT) 21 U/L (12-78); AST (GOT) 16 U/L (15-37); BICARBONATE 29.7 MEQ/L (21.0-32.0); BLOOD UREA NITROGEN 24 MG/DL (7-18); CALCIUM 8.8 MG/DL (8.5-10.1); CHLORIDE 104 MEQ/L (98-107); CREATININE 1.02 MG/DL (0.60-1.30); GLOMERULAR FILTRATION RATE 73 ML/MIN (>89); GLUCOSE,RANDOM 124 MG/DL (74-106); SODIUM (NA) 140 MEQ/L (136-145)
[2017-12-08 13:05] LABS: ALKALINE PHOSPHATASE 86 U/L (45-117); TOTAL PROTEIN 7.1 GM/DL (6.4-8.2)
[2017-12-08 17:37] LABS: AUTOMATED NEUTROPHIL # 3.1 TH/MM3 (1.8-7.7); BASOPHIL % 0.2 % (0.0-2.0); EOSINOPHIL % 0.2 % (0.0-4.0); HEMOGLOBIN 11.7 GM/DL (13.0-17.0); LYMPH % 29.3 % (9.0-44.0); LYMPHOCYTE # 1.3 TH/MM3 (1.0-4.8); MEAN CELL VOLUME 84.4 FL (80.0-100.0); MEAN CORPUSCULAR HEMOGLOBIN 29.8 PG (27.0-34.0); MEAN CORPUSCULAR HGB CONC 35.4 % (32.0-36.0); MEAN PLATELET VOLUME 6.7 FL (7.0-11.0); MONO % 0.8 % (0.0-8.0); NEUT % 69.5 % (16.0-70.0); PLATELET COUNT 36 TH/MM3 (150-450); RED BLOOD COUNT 3.91 MIL/MM3 (4.50-5.90); RED CELL DISTRIBUTION WIDTH 14.5 % (11.6-17.2); WHITE BLOOD COUNT 4.5 TH/MM3 (4.0-11.0)
--- NOTE | 2017-12-08 17:59 | PD ---
HPI Chief Complaint: Abnormal Results Time Seen by Provider: 12:01 Travel History International Travel<30 days: No Contact w/Intl Traveler<30days: No Traveled to known affect area: No History of Present Illness HPI Patient is a 67-year-old male who comes in due to abnormal results. He received a phone call today telling him to come to the emergency department. His history of AML and is receiving chemotherapy. He denies any complaints at this time. He denies any signs of bleeding. He denies any headache. He denies chest pain or shortness of breath. He denies fever or chills. PFSH Past Medical History Hx Anticoagulant Therapy: No Atrial Fibrillation: Yes Cancer: Yes (LEUKEMIA) Cardiovascular Problems: Yes (AFIB) High Cholesterol: Yes Chemotherapy: Yes (11/30) Cerebrovascular Accident: No Diabetes: No Diminished Hearing: No Endocrine: No Gastrointestinal Disorders: Yes (HERNIA REPAIR) Genitourinary: No Hepatitis: No Hiatal Hernia: No Hypertension: Yes Immune Disorder: No Implanted Vascular Access Dvce: No Medical other: Yes (HIGH CHOLESTEROL) Musculoskeletal: Yes ( LOWER BACK, ARTHRITIS IN BILAT ARTHRITIS) Neurologic: No Psychiatric: No Reproductive: No Respiratory: No Immunizations Current: Yes Thyroid Disease: Yes (monitoring) Past Surgical History Abdominal Surgery: Yes (HERNIA, APPY) AICD: No Appendectomy: Yes Body Medical Devices: NONE Cardiac Surgery: No Ear Surgery: No Endocrine Surgery: No Eye Surgery: No Genitourinary Surgery: No Gynecologic Surgery: No Joint Replacement: Yes (LEFT KNEE) Neurologic Surgery: No Oral Surgery: Yes (TONSILLECTOMY) Pacemaker: No Thoracic Surgery: No Tonsillectomy: Yes Other Surgery: Yes Social History Alcohol Use: Yes (BEER DAILY) Tobacco Use: No Substance Use: No Allergies-Medications (Allergen,Severity, Reaction): Coded Allergies: No Known Allergies (Unverified Adverse Reaction, Unknown, 11/16/17) Reported Meds & Prescriptions Reported Meds & Active Scripts Active [place] (Hydrocodone-Acetaminophen) 5-325 mg Tab 1-2 Tab PO Q6H PRN Reported Atorvastatin (Atorvastatin Calcium) 20 Mg Tab 20 Mg PO DAILY Metoprolol Tartrate 50 Mg Tab 50 Mg PO DAILY Amlodipine (Amlodipine Besylate) 5 Mg Tab 5 Mg PO DAILY Review of Systems Except as stated in HPI: all other systems reviewed are Neg General / Constitutional: No: Fever, Chills Eyes: No: Blurred Vision HENT: No: Headaches, Lightheadedness Cardiovascular: No: Chest Pain or Discomfort Respiratory: No: Shortness of Breath Gastrointestinal: No: Nausea, Vomiting Musculoskeletal: No: Myalgias, Edema Skin: No Rash, No Change in Pigmentation Neurologic: No: Weakness, Dizziness Physical Exam Narrative GENERAL: Awake and alert, in no acute distress. SKIN: Focused skin assessment warm/dry. No ecchymosis or petechiae. HEAD: Atraumatic. Normocephalic. EYES: Pupils equal and round. No scleral icterus. ENT: Mucous membranes pink and moist. NECK: Trachea midline. No JVD. CARDIOVASCULAR: Regular rate and rhythm. No murmur appreciated. RESPIRATORY: No accessory muscle use. Clear to auscultation. Breath sounds equal bilaterally. GASTROINTESTINAL: Abdomen soft, non-tender, nondistended. MUSCULOSKELETAL: No obvious deformities. No clubbing. No cyanosis. No edema. NEUROLOGICAL: Awake and alert. No obvious cranial nerve deficits. Motor grossly within normal limits. Normal speech. PSYCHIATRIC: Appropriate mood and affect; insight and judgment normal. Data Data Last Documented VS Vital Signs Date Time Temp Pulse Resp B/P (MAP) Pulse Ox O2 Delivery O2 Flow Rate FiO2 12/08/17 16:28 98.5 73 18 112/79 99 12/08/17 15:04 Room Air Orders Orders Complete Blood Count With Diff (12/08/17 12:08) Comprehensive Metabolic Panel (12/08/17 12:08) Act Partial Throm Time (Ptt) (12/08/17 12:08) Prothrombin Time / Inr (Pt) (12/08/17 12:08) Type And Screen (12/08/17 12:58) Platelet Pheresis Irradiated (12/08/17 12:58) Complete Blood Count With Diff (12/08/17 16:37) Labs Laboratory Tests Test 12/08/17 12:15 12/08/17 17:17 White Blood Count 4.5 TH/MM3 4.5 TH/MM3 Red Blood Count 4.61 MIL/MM3 3.91 MIL/MM3 Hemoglobin 13.6 GM/DL 11.7 GM/DL Hematocrit 39.1 % 33.0 % Mean Corpuscular Volume 84.8 FL 84.4 FL Mean Corpuscular Hemoglobin 29.5 PG 29.8 PG Mean Corpuscular Hemoglobin Concent 34.8 % 35.4 % Red Cell Distribution Width 14.8 % 14.5 % Platelet Count 12 TH/MM3 36 TH/MM3 Mean Platelet Volume 8.3 FL 6.7 FL Neutrophils (%) (Auto) 62.3 % 69.5 % Lymphocytes (%) (Auto) 36.3 % 29.3 % Monocytes (%) (Auto) 0.8 % 0.8 % Eosinophils (%) (Auto) 0.3 % 0.2 % Basophils (%) (Auto) 0.3 % 0.2 % Neutrophils # (Auto) 2.8 TH/MM3 3.1 TH/MM3 Lymphocytes # (Auto) 1.6 TH/MM3 1.3 TH/MM3 Monocytes # (Auto) 0.0 TH/MM3 0.0 TH/MM3 Eosinophils # (Auto) 0.0 TH/MM3 0.0 TH/MM3 Basophils # (Auto) 0.0 TH/MM3 0.0 TH/MM3 CBC Comment AUTO DIFF AUTO DIFF Differential Comment AUTO DIFF CONFIRMED Platelet Estimate RARE Platelet Morphology Comment NORMAL Red Cell Morphology Comment NORMAL Prothrombin Time 10.5 SEC Prothromb Time International Ratio 1.0 RATIO Activated Partial Thromboplast Time 26.5 SEC Blood Urea Nitrogen 24 MG/DL Creatinine 1.02 MG/DL Random Glucose 124 MG/DL Total Protein 7.1 GM/DL Albumin 3.8 GM/DL Calcium Level 8.8 MG/DL Alkaline Phosphatase 86 U/L Aspartate Amino Transf (AST/SGOT) 16 U/L Alanine Aminotransferase (ALT/SGPT) 21 U/L Total Bilirubin 1.0 MG/DL Sodium Level 140 MEQ/L Potassium Level 4.6 MEQ/L Chloride Level 104 MEQ/L Carbon Dioxide Level 29.7 MEQ/L Anion Gap 6 MEQ/L Estimat Glomerular Filtration Rate 73 ML/MIN [facility] Medical Decision Making Medical Screen Exam Complete: Yes Emergency Medical Condition: Yes Medical Record Reviewed: Yes Differential Diagnosis Thrombocytopenia versus neutropenia versus acute bleeding Narrative Course Patient is a 67-year-old male who comes in because he received a phone call telling him his lab work was abnormal. Exam shows no signs of active bleeding. Patient has no complaints at this time. IV established, labs sent. Labs show a platelet count of 12. I spoke with Dr. Puga of hematology. She suggests he received platelets, and if he responds to the transfusion, he can go home. Patient received 2 units of platelets with improvement of his platelet count 238. He still has no complaints and no signs of bleeding. He would like to go home. He is advised follow-up with oncology on Sunday. Advised to return any time for any worsening symptoms. Diagnosis Primary Impression: Thrombocytopenia Patient Instructions: General Instructions, Thrombocytopenia (ED) Additional Instructions: Follow-up with her oncologist on Sunday. Return any time for any worsening symptoms or any signs of bleeding. Disposition: DISCHARGE HOME Condition: Stable Letty Pickens MD Dec 08, 2017 17:59
== END 2017-12-08 18:21 | disposition home or self-care (01) ==
LOC: NEPE 11:49
DX: D69.6 Thrombocytopenia, unspecified (principal); C95.90 Leukemia, unspecified not having achieved remission; E78.00 Pure hypercholesterolemia, unspecified; I10 Essential (primary) hypertension; I48.91 Unspecified atrial fibrillation; M19.90 Unspecified osteoarthritis, unspecified site; E07.9 Disorder of thyroid, unspecified
CPT/HCPCS: 36430; 80053; 85025; 85610; 85730; 86850; 86900; 86901; 99283; P9037

== ENCOUNTER 2018-02-22 07:53 | Day surgery (SDC) | payer MEDICARE ==
[2018-02-22] VITALS (7 sets, daily range): BP systolic 116–140; BP diastolic 68–81; PULSE 65–79; RESP 16–20; TEMP 97.6–98.4; O2SAT 94–97
[~2018-02-22] VITALS: Ht 177.8 cm; Wt 115.9 kg
[2018-02-22] MEDS ORDERED: SODIUM CHLOR 0.9% 1000 ML IV SCH (08:00)
[2018-02-22 08:53] LABS: AUTOMATED NEUTROPHIL # 3.8 TH/MM3 (1.8-7.7); BASOPHIL # 0.1 TH/MM3 (0-0.2); BASOPHIL % 1.1 % (0.0-2.0); EOSINOPHIL # 0.1 TH/MM3 (0-0.4); EOSINOPHIL % 1.1 % (0.0-4.0); HEMATOCRIT 38.9 % (39.0-51.0); HEMOGLOBIN 13.5 GM/DL (13.0-17.0); LYMPH % 18.2 % (9.0-44.0); LYMPHOCYTE # 0.9 TH/MM3 (1.0-4.8); MEAN CELL VOLUME 89.9 FL (80.0-100.0); MEAN CORPUSCULAR HEMOGLOBIN 31.1 PG (27.0-34.0); MEAN CORPUSCULAR HGB CONC 34.6 % (32.0-36.0); MEAN PLATELET VOLUME 7.5 FL (7.0-11.0); MONO % 7.1 % (0.0-8.0); MONOCYTE # 0.4 TH/MM3 (0-0.9); NEUT % 72.5 % (16.0-70.0); PLATELET COUNT 122 TH/MM3 (150-450); RED BLOOD COUNT 4.33 MIL/MM3 (4.50-5.90); RED CELL DISTRIBUTION WIDTH 17.5 % (11.6-17.2); WHITE BLOOD COUNT 5.2 TH/MM3 (4.0-11.0)
[2018-02-22] MEDS ORDERED: fentaNYL CITRATE 250 MCG/5 ML AMP ONE (09:50)
[2018-02-22] MEDS ORDERED: MIDAZOLAM HCL 5 MG/5 ML VIAL ONE (09:50)
--- NOTE | 2018-02-22 10:54 | PD.RAD ---
Post CT Procedure Prog Note Pre Procedure Diagnosis: (1) Macrocytic anemia (2) Acute myelomonocytic leukemia Post Procedure Diagnosis: (1) Macrocytic anemia (2) Acute myelomonocytic leukemia Procedure Date: Feb 22, 2018 Supervising Radiologist: Roshan Shaw Anesthesia: Local, Analgesia, Conscious Sedation Plan of Activity Patient to Unit: ROPU Patient Condition: Good See PACS Report for procedural detail/treatment Biopsy Imaging Guidance: CT Side: Right Biopsy Procedure: Bone Marrow Specimen: Core Biopsy, Fine Needle Aspirate Roshan Shaw MD Feb 22, 2018 10:54
--- NOTE | 2018-02-22 12:17 | RADRPT ---
EXAM DATE/TIME: 02/22/2018 10:16 [facility] COMPARISON: CT NEEDLE BIOPSY BONE MARROW, July 13, 2017, 12:30. INDICATIONS : Leukemia. SEDATION TIME: 20 minutes BIOPSY SITE: Right MEDICATION(S): 1.) 3 mg midazolam (Versed) IV 2.) 175 mcg fentanyl (Sublimaze) IV DEVICE(S): 1.) 11 gauge Bone marrow biopsy needle MEDICAL HISTORY : Leukemia. Hypertension. Cardiovascular disease. SURGICAL HISTORY : Cholecystectomy ENCOUNTER: Initial ACUITY: 1 day PAIN SCORE: 0/10 LOCATION: Right A total of one core specimen(s) were obtained and sent to the laboratory for pathologic evaluation. PROCEDURE: 1. CT guided bone marrow biopsy. 2. Conscious sedation with continuous EKG and oximetry monitoring. 3. EKG and oximetry remained stable throughout the procedure. Prior to the procedure informed consent was obtained. Any appropriate prior imaging studies were rev iewed. Using automated exposure control and adjustment of the mA and/or kV according to patient size , radiation dose was kept as low as reasonably achievable to obtain optimal diagnostic quality images . DICOM format image data is available electronically for review and comparison. The site was prepped in a sterile fashion. Full sterile technique was used, including cap, mask, george rile gloves and gown and a large sterile sheet. Hand hygiene and 2% chlorhexidine and/or betadine/al cohol prep was utilized per protocol for cutaneous antisepsis. The skin and subcutaneous tissues wer e infiltrated with local anesthetic solution. With CT guidance the previously identified target was localized. Biopsy was performed using the presc ribed needle as above. Following biopsy marrow aspiration was performed with repeat puncture. [place] te hemostasis was obtained with compression at the puncture site. Follow-up CT scan reveals no hemorrhage. Conscious sedation was performed with the prescribed dosages and duration as above in the presence of an independent trained radiology nurse to assist in the monitoring of the patient. EKG and oximetry remained stable throughout the procedure. The patient tolerated the procedure well and there were no complications. The patient was sent to Radiology Outpatient Unit in stable condition. CONCLUSION: 1. Uncomplicated CT guided bone marrow aspirate. 2. Uncomplicated CT guided bone marrow biopsy. Roshan Shaw MD on February 22, 2018 at 12:15 Board Certified Radiologist. This report was verified electronically.
== END 2018-02-22 12:30 | disposition home or self-care (01) ==
LOC: HRAD 07:53 → HRIP 07:56 → HRAD 12:30
PROVIDERS: ATTEND Internal Medicine Hematology & Oncology
DX: C92.50 Acute myelomonocytic leukemia, not having achieved remission (principal); D53.9 Nutritional anemia, unspecified
CPT/HCPCS: 38222; 77012; 85025; 85097; 88184; 88185; 88237; 88264; 88280; 88305; 88311; 88313; 99152; 99153; C1830; J2250; J3010